=== PATIENT | female | born 1960 | race African-American/Black ===

== ENCOUNTER 2016-09-16 21:15 | Inpatient (IN) | payer OTHER, BC ==
[2016-09-16] MEDS ORDERED: morphine CARPU-JECT 4 MG/1 ML DISP.SYRIN IVPUSH ONE (21:25)
[2016-09-16] MEDS ORDERED: ONDANSETRON 4 MG/2 ML VIAL IVPB ONE (21:25)
[2016-09-16] MEDS ORDERED: FAMOTIDINE 20 MG/50 ML IVPB 50 ML IVPB ONE ×2 (21:25→21:33)
[2016-09-16] MEDS ORDERED: SODIUM CHLORIDE 1,000 ML IV STA (21:25)
[2016-09-16] MEDS ORDERED: ONDANSETRON 4 MG/2 ML VIAL ONE (21:33)
[2016-09-16] MEDS ORDERED: morphine CARPU-JECT 4 MG/1 ML DISP.SYRIN ONE (21:33)
--- NOTE | 2016-09-16 21:35 | PDOC ---
History of Present Illness - General History Source: Patient, Old Records Exam Limitations: No Limitations - History of Present Illness Initial Comments: 09/16/16 22:58 The patient is a 56 year old female, with a significant past medical history of asthma, HTN, hyperlipidemia, COPD, gastric reflux and bowel obstruction, who presents to the emergency department via EMS with intermittent radiating abdominal pain for a couple of days but significantly worsening this evening just prior to presentation, prompting her to visit an ED for evaluation. The patient localizes her abdominal pain to the epigastric region and states that it radiates to her back. She states that these symptoms feel similar to when she had a prior bowel obstruction. The patient denies fever, chills, nausea, vomiting or diarrhea. Allergies: Penicillins (hives), Sulfa (hives) Past Surgical History: Umbilical Hernia Repair, Uterine Polyp Removal (2013) Social History: Former smoker (quit 2011). Denies alcohol or drug use. PCP: Dr. Cristal Ludwig Building Certifier: Dr. Conti <Donna Denise - Last Filed: 09/16/16 23:07> - General History Source: Patient, Old Records Exam Limitations: No Limitations <Oli Verma - Last Filed: 09/17/16 02:19> <Sonja Crawford - Last Filed: 09/17/16 02:51> <Cora Fuentes - Last Filed: 09/17/16 21:31> - General Stated Complaint: ABD PAIN Time Seen by Provider: 09/16/16 21:24 Past History <Donna Denise - Last Filed: 09/16/16 23:07> - Past Medical History Anemia: No Asthma: Yes Cancer: No Cardiac Disorders: Yes CVA: No COPD: Yes CHF: No Dementia: No Diabetes: (BORDERLINE) GI Disorders: Yes (GERD) Disorders: No HTN: Yes Hypercholesterolemia: Yes Liver Disease: No Suicide Attempt (Hx): No Seizures: No Thyroid Disease: Yes (NODULES) - Surgical History Abdominal Surgery: Yes (POLYP REMOVED FROM UTERUS 09/06/13) Appendectomy: No Cardiac Surgery: No Cholecystectomy: No GI Surgery: Yes (umbilical hernia/wound vac) Lung Surgery: No Neurologic Surgery: No Orthopedic Surgery: Yes (BUNION REMOVAL RT FOOT 2013) - Immunization History Immunization Up to Date: Yes - Psycho/Social/Smoking Cessation Hx Anxiety: No Suicidal Ideation: No Smoking Status: Yes Smoking History: Never smoked Have you smoked in the past 12 months: No Number of Cigarettes Smoked Daily: 0 If you are a former smoker, when did you quit?: 05/17/2012 'Breaking Loose' booklet given: 10/28/13 Hx Alcohol Use: No Drug/Substance Use Hx: No Substance Use Type: None Hx Substance Use Treatment: No <Oli Verma - Last Filed: 09/17/16 02:19> <Sonja Crawford - Last Filed: 09/17/16 02:51> <Cora Fuetnes - Last Filed: 09/17/16 21:31> - Past Medical History Allergies/Adverse Reactions: Allergies Allergy/AdvReac Type Severity Reaction Status Date / Time Penicillins Allergy Hives Verified 09/16/16 22:23 Sulfa (Sulfonamide Allergy Hives Verified 09/16/16 22:23 Antibiotics) [Sulfa(Sulfonamide Antibiotics)] Home Medications: Ambulatory Orders Albuterol Sulfate Inhaler - [Ventolin HFA Inhaler -] 1 - 2 inh PO Q4H PRN MDD UNKNOWN 06/24/15 Atorvastatin Ca [Lipitor] 10 mg PO DAILY 06/24/15 Roflumilast [Daliresp] 500 mcg PO DAILY 06/24/15 Tiotropium [place] [Spiriva] 1 inh PO DAILY 06/24/15 Aspirin [ASA -] 81 mg PO DAILY 03/21/16 Butalb/Acetaminophen/Caffeine [Fioricet 50-300-40 mg Capsule] 1 each PO PRN PRN 03/21/16 Cholecalciferol (Vitamin D3) [Vitamin D -] 400 unit PO DAILY tablet 03/28/16 Cyanocobalamin [Vitamin B12 -] 1,000 mcg PO DAILY tablet 03/28/16 Fluticasone/Salmeterol [Advair 250-50 Diskus] 1 each IH BID 04/24/16 Acetaminophen [Tylenol .Regular Strength -] 650 mg PO Q4H PRN #0 tablet Pantoprazole Sodium [Protonix] 40 mg PO DAILY #30 05/02/16 Clonazepam [Klonopin] 0.5 mg PO ASDIR PRN 06/04/16 Diltiazem Cd [Cardizem Cd -] 180 mg PO DAILY #60 cap.cd.24h 06/08/16 Linezolid 600 mg PO BID #20 tablet 06/25/16 Prednisone [Deltasone -] 20 mg PO ONCE #1 tablet 07/28/16 Review of Systems - Review of Systems Able to Perform ROS?: Yes Comments:: 09/16/16 22:37 GENERAL/CONSTITUTIONAL: No fever or chills. No weakness. HEAD, EYES, EARS, NOSE AND THROAT: No change in vision. No ear pain or discharge. No sore throat. CARDIOVASCULAR: No chest pain or shortness of breath. RESPIRATORY: No cough, wheezing, or hemoptysis. GASTROINTESTINAL: +Abdominal pain. No nausea, vomiting, diarrhea or constipation. GENITOURINARY: No dysuria, frequency, or change in urination. MUSCULOSKELETAL: No joint or muscle swelling or pain. No neck or back pain. SKIN: No rash. NEUROLOGIC: No headache, vertigo, loss of consciousness, or change in strength/ sensation. ENDOCRINE: No increased thirst. No abnormal weight change. HEMATOLOGIC/LYMPHATIC: No anemia, easy bleeding, or history of blood clots. ALLERGIC/IMMUNOLOGIC: No hives or skin allergy. <Donna Denise - Last Filed: 09/16/16 23:07> *Physical Exam - Physical Exam Comments: 09/16/16 23:07 GENERAL: Awake, alert, and fully oriented, uncomfortable appearing. HEAD: No signs of trauma. EYES: PERRLA, EOMI, sclera anicteric, conjunctiva clear. ENT: Auricles normal inspection, hearing grossly normal, nares patent, oropharynx clear without exudates. Moist mucosa. NECK: Normal ROM, supple, no lymphadenopathy, JVD, or masses. LUNGS: Breath sounds equal, clear to auscultation bilaterally. No wheezes, and no crackles. HEART: Regular rate and rhythm, normal S1 and S2, no murmurs, rubs or gallops. ABDOMEN: Epigastric tenderness to palpation. Soft, normoactive bowel sounds. No guarding, no rebound. No masses. EXTREMITIES: Normal range of motion, no edema. No clubbing or cyanosis. No cords , erythema, or tenderness. NEUROLOGICAL: Cranial nerves II through XII intact. Normal speech, normal gait. <Donna Denise - Last Filed: 09/16/16 23:07> - Vital Signs Last Vital Signs Temp Pulse Resp BP Pulse Ox 97.7 F 82 18 134/72 98 09/16/16 22:13 09/16/16 22:13 09/16/16 22:13 09/16/16 22:13 09/16/16 22:13 <Sonja Crawford - Last Filed: 09/17/16 02:51> - Vital Signs Last Vital Signs Temp Pulse Resp BP Pulse Ox 97.7 F 82 18 134/72 98 09/16/16 22:13 09/16/16 22:13 09/16/16 22:13 09/16/16 22:13 09/16/16 22:13 <Cora Fuentes - Last Filed: 09/17/16 21:31> ED Treatment Course - LABORATORY CBC & Chemistry Diagram: 09/16/16 21:40 09/16/16 16:03 <Donna Denise - Last Filed: 09/16/16 23:07> - LABORATORY CBC & Chemistry Diagram: 09/16/16 21:40 09/17/16 00:27 - RADIOLOGY Radiology Studies Ordered: Category Date Time Status ABDOMEN & PELVIS CT WITH CONTR [CT] Stat CT Scan 09/16/16 21:25 Ordered CHEST X-RAY PORTABLE* [RAD] Stat Radiology 09/16/16 21:25 Ordered <Oli Verma - Last Filed: 09/17/16 02:19> - LABORATORY CBC & Chemistry Diagram: 09/16/16 21:40 09/17/16 00:27 - ADDITIONAL ORDERS Additional order review: Laboratory Results 09/17/16 09/16/16 09/16/16 00:27 16:03 16:03 INR 1.04 PTT (Actin FS) 25.2 L Sodium 144 Cancelled Potassium 4.7 D Cancelled Chloride 106 Cancelled Carbon Dioxide 29 Cancelled Anion Gap 9 Cancelled BUN 13 D Cancelled Creatinine 0.8 Cancelled Creat Clearance w eGFR > 60 Cancelled Random Glucose 93 Cancelled Calcium 8.4 L Cancelled Total Bilirubin 0.5 Cancelled AST 10 L Cancelled ALT 16 D Cancelled Alkaline Phosphatase 77 Cancelled Creatine Kinase Cancelled Troponin I Cancelled Total Protein 6.0 L Cancelled Albumin 3.2 L D Cancelled Lipase 67 L Cancelled 09/16/16 21:40 RBC 4.67 D MCV 89.5 MCHC 33.0 RDW 14.7 MPV 7.0 L Neutrophils % 58.5 Lymphocytes % 34.1 D Monocytes % 5.9 Eosinophils % 0.7 D Basophils % 0.8 - Medications Given in the ED: ED Medications Discontinued Medications Generic Name Dose Route Start Last Admin Trade Name Francheska PRN Reason Stop Dose Admin Hydromorphone HCl 1 mg 09/16/16 21:43 09/16/16 23:21 Dilaudid Injection - IVPB 09/16/16 21:44 1 mg ONCE ONE Administration Hydromorphone HCl 1 mg 09/17/16 00:46 09/17/16 01:06 Dilaudid Injection - IVPB 09/17/16 00:47 1 mg ONCE ONE Administration Famotidine/Sodium Chloride 50 mls @ 100 mls/hr 09/16/16 21:25 09/16/16 21:59 Pepcid 20 Mg Premixed Ivpb - IVPB 09/16/16 21:54 100 mls/hr ONCE ONE Administration Sodium Chloride 1,000 mls @ 1,000 mls/hr 09/16/16 21:25 09/16/16 21:59 Normal Saline - IV 09/16/16 22:24 1,000 mls/hr ASDIR STA Administration Morphine Sulfate 4 mg 09/16/16 21:25 09/16/16 21:45 Morphine Injection - IVPUSH 09/16/16 21:26 4 mg ONCE ONE Administration Ondansetron HCl 4 mg 09/16/16 21:25 09/16/16 21:59 Zofran Injection IVPB 09/16/16 21:26 4 mg ONCE ONE Administration <Sonja Crawford - Last Filed: 09/17/16 02:51> - LABORATORY CBC & Chemistry Diagram: 09/16/16 21:40 09/17/16 00:27 - ADDITIONAL ORDERS Additional order review: Laboratory Results 09/17/16 09/16/16 09/16/16 00:27 16:03 16:03 INR 1.04 PTT (Actin FS) 25.2 L Sodium 144 Cancelled Potassium 4.7 D Cancelled Chloride 106 Cancelled Carbon Dioxide 29 Cancelled Anion Gap 9 Cancelled BUN 13 D Cancelled Creatinine 0.8 Cancelled Creat Clearance w eGFR > 60 Cancelled Random Glucose 93 Cancelled Calcium 8.4 L Cancelled Total Bilirubin 0.5 Cancelled AST 10 L Cancelled ALT 16 D Cancelled Alkaline Phosphatase 77 Cancelled Creatine Kinase Cancelled Troponin I Cancelled Total Protein 6.0 L Cancelled Albumin 3.2 L D Cancelled Lipase 67 L Cancelled 09/16/16 21:40 RBC 4.67 D MCV 89.5 MCHC 33.0 RDW 14.7 MPV 7.0 L Neutrophils % 58.5 Lymphocytes % 34.1 D Monocytes % 5.9 Eosinophils % 0.7 D Basophils % 0.8 - Medications Given in the ED: ED Medications Discontinued Medications Generic Name Dose Route Start Last Admin Trade Name Freq PRN Reason Stop Dose Admin Hydromorphone HCl 1 mg 09/16/16 21:43 09/16/16 23:21 Dilaudid Injection - IVPB 09/16/16 21:44 1 mg ONCE ONE Administration Hydromorphone HCl 1 mg 09/17/16 00:46 09/17/16 01:06 Dilaudid Injection - IVPB 09/17/16 00:47 1 mg ONCE ONE Administration Hydromorphone HCl 1 mg 09/17/16 02:53 09/17/16 02:56 Dilaudid Injection - IVPUSH 09/17/16 02:54 1 mg ONCE ONE Administration Famotidine/Sodium Chloride 50 mls @ 100 mls/hr 09/16/16 21:25 09/16/16 21:59 Pepcid 20 Mg Premixed Ivpb - IVPB 09/16/16 21:54 100 mls/hr ONCE ONE Administration Sodium Chloride 1,000 mls @ 1,000 mls/hr 09/16/16 21:25 09/16/16 21:59 Normal Saline - IV 09/16/16 22:24 1,000 mls/hr ASDIR STA Administration Metoclopramide HCl 10 mg 09/17/16 02:53 09/17/16 02:56 Reglan Injection - IVPB 09/17/16 02:54 10 mg ONCE ONE Administration Morphine Sulfate 4 mg 09/16/16 21:25 09/16/16 21:45 Morphine Injection - IVPUSH 09/16/16 21:26 4 mg ONCE ONE Administration Ondansetron HCl 4 mg 09/16/16 21:25 09/16/16 21:59 Zofran Injection IVPB 09/16/16 21:26 4 mg ONCE ONE Administration <Cora Fuentes - Last Filed: 09/17/16 21:31> Medical Decision Making - Medical Decision Making 09/16/16 21:33 A portion of this note was documented by scribe services under my direction. I have reviewed the details of the note, within reason, and agree with the documentation with the following case summary and management plan written by me. Patient treated in the ED. Nursing notes are reviewed and incorporated into the medical decision-making. Vital signs reviewed. Peripheral IV access obtained by the nurse, laboratory studies are drawn and sent, reviewed and interpreted by myself. Vital Signs Temp Pulse Resp BP Pulse Ox 97.7 F 82 18 134/72 98 09/16/16 22:13 09/16/16 22:13 09/16/16 22:13 09/16/16 22:13 09/16/16 22:13 56 year old female with history of COPD, asthma, gastric reflux, hypertension, bowel obstruction presents to the emergency department for intermittent abdominal pain for several days. Reports one hour prior to arrival, she felt worsening diffuse abdominal pain, particularly worse in the epigastric radiating to the back. Denies nausea or vomiting. Denies diarrhea. Patient reports that this feels like her prior bowel obstruction. We'll need to rule out bowel obstruction. We'll also rule out pancreatitis and other abdominal pathology. Labs, CAT scan and reassess. 09/17/16 02:19 CBC, BMP 09/16/16 21:40 09/17/16 00:27 CMP Sodium 144 mmol/L (136-145) 09/17/16 00:27 Potassium 4.7 mmol/L (3.5-5.1) D 09/17/16 00:27 Chloride 106 mmol/L (98-107) 09/17/16 00:27 Carbon Dioxide 29 mmol/L (21-32) 09/17/16 00:27 Anion Gap 9 (8-16) 09/17/16 00:27 BUN 13 mg/dL (7-18) D 09/17/16 00:27 Creatinine 0.8 mg/dL (0.55-1.02) 09/17/16 00:27 Creat Clearance w eGFR > 60 (>60) 09/17/16 00:27 Random Glucose 93 mg/dL (74-106) 09/17/16 00:27 Calcium 8.4 mg/dL (8.5-10.1) L 09/17/16 00:27 Total Bilirubin 0.5 mg/dL (0.2-1.0) 09/17/16 00:27 AST 10 U/L (15-37) L 09/17/16 00:27 ALT 16 U/L (12-78) D 09/17/16 00:27 Alkaline Phosphatase 77 U/L (45-117) 09/17/16 00:27 Creatine Kinase Cancelled 09/16/16 16:03 Troponin I Cancelled 09/16/16 16:03 Total Protein 6.0 g/dl (6.4-8.2) L 09/17/16 00:27 Albumin 3.2 g/dl (3.4-5.0) L D 09/17/16 00:27 Lipase 67 U/L (73-393) L 09/17/16 00:[address] scan pending. Case signed out to Dr. Fuentes for further management and disposition. <Oli Verma - Last Filed: 09/17/16 02:19> - Medical Decision Making 09/17/16 02:51 First call placed to Dr. Ludwig at 02:50. Awaiting call back. <Sonja Crawford - Last Filed: 09/17/16 02:51> - Medical Decision Making 09/17/16 21:30 Pt comes with SBO; she has had this in the past. She will be admitted to her PMD Cristal Ludwig, who is aware. NG tube placed by me. <Cora Fuentes - Last Filed: 09/17/16 21:31> *DC/Admit/Observation/Transfer - Attestations Scribe Attestion: 09/16/16 21:36 Documentation prepared by Donna Denise, acting as medical educator for Oli Verma MD. <Donna Denise - Last Filed: 09/16/16 23:07> <Oli Verma - Last Filed: 09/17/16 02:19> - Attestations Scribe Attestion: 09/17/16 02:52 Documentation prepared by Sonja Crawford, acting as medical educator for Cora Fuentes MD. <Sonja Crawford - Last Filed: 09/17/16 02:51> - Discharge Dispostion Admit: Yes <Cora Fuentes - Last Filed: 09/17/16 21:31> Diagnosis at time of Disposition: Small bowel obstruction - Discharge Dispostion Condition at time of disposition: Fair - Referrals
[2016-09-16] MEDS ORDERED: HYDROmorphone HCL CARPU-JECT 1 MG/1 ML DISP.SYRIN IVPB ONE (21:43)
[2016-09-16 21:50] LABS: BASOPHIL 0.8 % (0-2.0); EOSINOPHIL 0.7 % (0-4.5); MCH 29.5 pg (25.7-33.7); MEAN CELL VOLUME 89.5 fl (80-96); NEUTROPHILS 58.5 % (42.8-82.8); PLATELET COUNT 370 K/MM3 (134-434); RDW 14.7 % (11.6-15.6); WHITE BLOOD COUNT 11.3 K/mm3 (4.0-10.0)
[2016-09-16 22:11] LABS: INR 1.04 (0.82-1.09); PROTHROMBIN TIME (PATIENT) 11.5 SEC (9.98-11.88)
[2016-09-16 22:14] LABS: ACTIVATED PTT 25.2 SECONDS (26.9-34.4)
[2016-09-16] MEDS ORDERED: HYDROmorphone HCL CARPU-JECT 1 MG/1 ML DISP.SYRIN ONE (22:54)
[2016-09-17] MEDS ORDERED: HYDROmorphone HCL CARPU-JECT 1 MG/1 ML DISP.SYRIN IVPB ONE (00:46)
[2016-09-17] MEDS ORDERED: HYDROmorphone HCL CARPU-JECT 1 MG/1 ML DISP.SYRIN ONE ×3 (01:00→10:19)
[2016-09-17 01:30] LABS: ALBUMIN 3.2 g/dl (3.4-5.0); ALK PHOS 77 U/L (45-117); ANION GAP 9 (8-16); BILIRUBIN,TOTAL 0.5 mg/dL (0.2-1.0); CALCIUM 8.4 mg/dL (8.5-10.1); CO2 29 mmol/L (21-32); CREATININE 0.8 mg/dL (0.55-1.02); GLUCOSE,RANDOM 93 mg/dL (74-106); SGOT/AST 10 U/L (15-37); SGPT/ALT 16 U/L (12-78)
[2016-09-17] MEDS ORDERED: METOCLOPRAMIDE HCL INJECTION 10 MG/2 ML VIAL ONE (02:50)
[2016-09-17] MEDS ORDERED: HYDROmorphone HCL CARPU-JECT 2 MG/1 ML DISP.SYRIN IVPUSH ONE (02:53)
[2016-09-17] MEDS ORDERED: METOCLOPRAMIDE HCL INJECTION 10 MG/2 ML VIAL IVPB ONE (02:53)
[2016-09-17] MEDS ORDERED: LIDOCAINE HCL 2% JELLY (5 ML/TUBE) ONE (03:15)
--- NOTE | 2016-09-17 09:26 | EKG ---
Test Reason : Blood Pressure : / mmHG Vent. Rate : 100 BPM Atrial Rate : 100 BPM P-R Int : 132 ms QRS Dur : 082 ms QT Int : 332 ms P-R-T Axes : 061 014 034 degrees QTc Int : 428 ms NORMAL SINUS RHYTHM POSSIBLE LEFT ATRIAL ENLARGEMENT LEFT VENTRICULAR HYPERTROPHY ABNORMAL ECG WHEN COMPARED WITH ECG OF 16-JUN-2016 02:46, NO SIGNIFICANT CHANGE WAS FOUND Confirmed by NAVARRO HARPER MD ([id number]) on 09/17/2016 9:26:22 AM Referred By: Confirmed By:NAVARRO HARPER MD
[2016-09-17] MEDS ORDERED: HYDROmorphone HCL CARPU-JECT 1 MG/1 ML DISP.SYRIN IVPUSH ONE (10:14)
[2016-09-17] MEDS ORDERED: ONDANSETRON 4 MG/2 ML VIAL IVPUSH PRN ×2 (10:27→10:32)
[2016-09-17] MEDS: D5-1/2NS+20 MEQ KCL - 1,000 ML IV SCH ×2 (10:35→22:10)
--- NOTE | 2016-09-17 10:51 | HP ---
Admitting History and Physical - Primary Care Physician PCP: Cristal Ludwig - Admission Chief Complaint: abd pain History of Present Illness: ER HISTORY-- - History of Present Illness Initial Comments: 09/16/16 22:58 The patient is a 56 year old female, with a significant past medical history of asthma, HTN, hyperlipidemia, COPD, gastric reflux and bowel obstruction, who presents to the emergency department via EMS with intermittent radiating abdominal pain for a couple of days but significantly worsening this evening just prior to presentation, prompting her to visit an ED for evaluation. The patient localizes her abdominal pain to the epigastric region and states that it radiates to her back. She states that these symptoms feel similar to when she had a prior bowel obstruction. The patient denies fever, chills, nausea, vomiting or diarrhea. Allergies: Penicillins (hives), Sulfa (hives) Past Surgical History: Umbilical Hernia Repair, Uterine Polyp Removal (2013) Social History: Former smoker (quit 2011). Denies alcohol or drug use. PCP: Dr. Cristal Ludwig Quality Assurance Supervisor: Dr. Conti Pt examined by me in the ER Has NG tube on suction C/O abd pain for last one week- intermittent but day before coming to the ER she experienced severe abdominal pain No constipation , diarrhea, vomiting or nausea History Source: Patient Limitations to Obtaining History: No Limitations - Past Medical History Cardiovascular: Yes: HTN Pulmonary: Yes: COPD ...LMP: 08/04/13 Heme/Onc: Yes: B12 Deficiency Psych: Yes: Anxiety - Past Surgical History Past Surgical History: Yes: Hernia Repair - Smoking History Smoking history: Never smoked Have you smoked in the past 12 months: No Aproximately how many cigarettes per day: 0 If you are a former smoker, when did you quit?: 05/17/2012 - Alcohol/Substance Use Hx Alcohol Use: No Home Medications - Allergies Allergies/Adverse Reactions: Allergies Allergy/AdvReac Type Severity Reaction Status Date / Time Penicillins Allergy Hives Verified 09/16/16 22:23 Sulfa (Sulfonamide Allergy Hives Verified 09/16/16 22:23 Antibiotics) [Sulfa(Sulfonamide Antibiotics)] - Home Medications Home Medications: Ambulatory Orders Albuterol Sulfate Inhaler - [Ventolin HFA Inhaler -] 1 - 2 inh PO Q4H PRN MDD UNKNOWN 06/24/15 Atorvastatin Ca [Lipitor] 10 mg PO DAILY 06/24/15 Roflumilast [Daliresp] 500 mcg PO DAILY 06/24/15 Tiotropium [place] [Spiriva] 1 inh PO DAILY 06/24/15 Aspirin [ASA -] 81 mg PO DAILY 03/21/16 Butalb/Acetaminophen/Caffeine [Fioricet 50-300-40 mg Capsule] 1 each PO PRN PRN 03/21/16 Cholecalciferol (Vitamin D3) [Vitamin D -] 400 unit PO DAILY tablet 03/28/16 Cyanocobalamin [Vitamin B12 -] 1,000 mcg PO DAILY tablet 03/28/16 Fluticasone/Salmeterol [Advair 250-50 Diskus] 1 each IH BID 04/24/16 Acetaminophen [Tylenol .Regular Strength -] 650 mg PO Q4H PRN #0 tablet Pantoprazole Sodium [Protonix] 40 mg PO DAILY #30 05/02/16 Clonazepam [Klonopin] 0.5 mg PO ASDIR PRN 06/04/16 Diltiazem Cd [Cardizem Cd -] 180 mg PO DAILY #60 cap.cd.24h 06/08/16 Linezolid 600 mg PO BID #20 tablet 06/25/16 Prednisone [Deltasone -] 20 mg PO ONCE #1 tablet 07/28/16 Family Disease History - Family Disease History Family Disease History: CA: Father (Lung CA), Other: Mother (HTN) Review of Systems - Review of Systems Constitutional: denies: Fever, Loss of Appetite Gastrointestinal: reports: Abdominal Pain. denies: Constipation, Diarrhea, Vomiting Physical Examination Vital Signs: Vital Signs Temperature 97.7 F 09/17/16 04:06 Pulse Rate 107 H 09/17/16 07:35 Respiratory Rate 20 09/17/16 07:35 Blood Pressure 155/90 09/17/16 07:35 O2 Sat by Pulse Oximetry (%) 96 09/17/16 07:35 Constitutional: Yes: No Distress, Calm Cardiovascular: Yes: Regular Rate and Rhythm Respiratory: Yes: CTA Bilaterally Gastrointestinal: Yes: Soft, Hypoactive Bowel Sounds, Tenderness. No: Normal Bowel Sounds, Distention Edema: No Psychiatric: Yes: Alert, Oriented Labs: Laboratory Tests 09/16/16 09/16/16 09/17/16 16:03 21:40 00:27 WBC 11.3 H Hgb 13.8 D Hct 41.8 D Plt Count 370 D INR 1.04 PTT (Actin FS) 25.2 L Sodium 144 Potassium 4.7 D Chloride 106 Carbon Dioxide 29 BUN 13 D Creatinine 0.8 Random Glucose 93 Calcium 8.4 L Total Bilirubin 0.5 AST 10 L ALT 16 D Alkaline Phosphatase 77 Albumin 3.2 L D Lipase 67 L Imaging - Results Chest X-ray: Image Reviewed (no infiltrate) Cat Scan: Report Reviewed EKG: Image Reviewed (NSR) Problem List - Problems (1) Asthma with COPD Code(s): J44.9 - CHRONIC OBSTRUCTIVE PULMONARY DISEASE, UNSPECIFIED J45.909 - UNSPECIFIED ASTHMA, UNCOMPLICATED (2) Intestinal obstruction due to adhesions Code(s): K56.5 - INTESTINAL ADHESIONS W OBST (POSTPROCEDURAL) (POSTINFECTION) (3) Small bowel obstruction Code(s): K56.69 - OTHER INTESTINAL OBSTRUCTION Assessment/Plan PLAN --- Keep NPO -- IV fluids -- pain control -- NG tube on suction -- Surgery and GI eval -- DVT prophylaxis -- FUA in AM
[2016-09-17] MEDS ORDERED: ALBUTEROL SO4 6.7 GM HFA INHALER IH PRN (13:15)
--- NOTE | 2016-09-17 14:03 | CONSULT ---
Consult Consult Specialty:: Surgery Referred by:: Cristal Ludwig Reason for Consultation:: Intestinal obstruction. - History of Present Illness Chief Complaint: Abdominal pain, in mid and upper abdomen,since yesterday evening. History of Present Illness: Patient started getting crampy abdominal pain since last evening, associated with vomiting, for which she came to the ER. She is admitted for intestinal obstruction. - History Source History Provided By: Patient - Past Medical History Cardio/Vascular: Yes: HTN Pulmonary: Yes: COPD ...LMP: 08/04/13 Psych: Yes: Anxiety - Past Surgical History Past Surgical History: Yes: Hernia Repair - Alcohol/Substance Use Hx Alcohol Use: No - Smoking History Smoking history: Never smoked Have you smoked in the past 12 months: No Aproximately how many cigarettes per day: 0 If you are a former smoker, when did you quit?: 05/17/2012 Home Medications - Allergies Allergies/Adverse Reactions: Allergies Allergy/AdvReac Type Severity Reaction Status Date / Time Penicillins Allergy Hives Verified 09/16/16 22:23 Sulfa (Sulfonamide Allergy Hives Verified 09/16/16 22:23 Antibiotics) [Sulfa(Sulfonamide Antibiotics)] - Home Medications Home Medications: Ambulatory Orders Albuterol Sulfate Inhaler - [Ventolin HFA Inhaler -] 1 - 2 inh PO Q4H PRN MDD UNKNOWN 06/24/15 Atorvastatin Ca [Lipitor] 10 mg PO DAILY 06/24/15 Roflumilast [Daliresp] 500 mcg PO DAILY 06/24/15 Tiotropium [place] [Spiriva] 1 inh PO DAILY 06/24/15 Aspirin [ASA -] 81 mg PO DAILY 03/21/16 Butalb/Acetaminophen/Caffeine [Fioricet 50-300-40 mg Capsule] 1 each PO PRN PRN 03/21/16 Cholecalciferol (Vitamin D3) [Vitamin D -] 400 unit PO DAILY tablet 03/28/16 Cyanocobalamin [Vitamin B12 -] 1,000 mcg PO DAILY tablet 03/28/16 Fluticasone/Salmeterol [Advair 250-50 Diskus] 1 each IH BID 04/24/16 Acetaminophen [Tylenol .Regular Strength -] 650 mg PO Q4H PRN #0 tablet Pantoprazole Sodium [Protonix] 40 mg PO DAILY #30 05/02/16 Clonazepam [Klonopin] 0.5 mg PO ASDIR PRN 06/04/16 Diltiazem Cd [Cardizem Cd -] 180 mg PO DAILY #60 cap.cd.24h 06/08/16 Linezolid 600 mg PO BID #20 tablet 06/25/16 Prednisone [Deltasone -] 20 mg PO ONCE #1 tablet 07/28/16 Family Disease History - Family Disease History Family Disease History: CA: Father (Lung CA), Other: Mother (HTN) Physical Exam Vital Signs: Vital Signs Temperature 98.2 F 09/17/16 13:00 Pulse Rate 93 H 09/17/16 13:00 Respiratory Rate 18 09/17/16 13:00 Blood Pressure 142/85 09/17/16 13:00 O2 Sat by Pulse Oximetry (%) 96 09/17/16 13:00 Gastrointestinal: Yes: Other (Transverse incision at the umbilicus. Abdomen is soft , not distended, not tender.) Imaging - Results Cat Scan: Report Reviewed, Image Reviewed Problem List - Problems (1) Intestinal obstruction due to adhesions Code(s): K56.5 - INTESTINAL ADHESIONS W OBST (POSTPROCEDURAL) (POSTINFECTION) (2) Asthma with COPD Code(s): J44.9 - CHRONIC OBSTRUCTIVE PULMONARY DISEASE, UNSPECIFIED J45.909 - UNSPECIFIED ASTHMA, UNCOMPLICATED (3) Abdominal pain Code(s): R10.9 - UNSPECIFIED ABDOMINAL PAIN Qualifiers: Abdominal location: epigastric Qualified Code(s): R10.13 - Epigastric pain (4) HTN (hypertension) Code(s): I10 - ESSENTIAL (PRIMARY) HYPERTENSION Assessment/Plan NG tube has been placed and connected to suction . IV hydration. Follow up abdominal X-ray. Patient is explained of her condition , and management and complications.
--- NOTE | 2016-09-17 14:53 | CON.GI ---
Consult Consult Specialty:: GASTROENTEROLOGY - History of Present Illness Chief Complaint: ABDOMINAL PAIN History of Present Illness: 56 YEAR OLD FEMALE WITH HISTORY OF ABDOMINAL HERNIA REPAIR WITH [facility] (WITH PIOST OP COMPLICATIONS0 ADMITTED AGAIN WITH SMALL BOWEL OBSTRUCTION. cT SCAN SHOWED DILATED SMALL BOWEL AND EPIGASRIXC HERNIA WITH SMALL BOWEL IN HERNIA. PATIENT SEEN BY SURGERY AND NGT PASSED WITH IMPROVEMENT OF SYMPTOMS. - History Source History Provided By: Patient Limitations to Obtaining History: No Limitations - Past Medical History Cardio/Vascular: Yes: HTN Pulmonary: Yes: COPD Gastrointestinal: Yes: Other (HERNIA REPAIR WITH COMPLICATIONS AND POST OP SBO) Hepatobiliary: No: Cirrhosis, Cholelithiasis, Cholecystitis, Choledocholithiasis , Hepatitis A, Hepatitis B, Hepatitis C, Other Renal/: No: Renal Failure, Renal Inusuff, BPH, Cancer, Hematuria, Hemodialysis , Neurogenic Bladder, Renal Calculi, UTI, Other ...LMP: 08/04/13 Heme/Onc: No: Anemia, B12 Deficiency, Bleeding Disorder, Cancer, Current Chemotherapy, Current Radiation Therapy, Hemochromatosis, Hypercoaguable State, Myeloproliferative Synd, Sickle Cell Disease, Sickle Cell Trait, Thrombocytopenia, Other Infectious Disease: No: AIDS, C-Diff, Herpes Zoster, HIV, MRSA, STD's, Tuberculosis, VREF, Other Psych: Yes: Anxiety Rheumatology: No: Fibromyalgia, Gout, Lupus, Rheumatoid Arthritis, Sarcoidosis, Vasculitis, Other ENT: No: Allergic Rhinitis, Sinusitis, Other Endocrine: No: Srinivas's Disease, Oralia's Disease, Diabetes Insipidus, Diabetes Mellitus, Hyperparathyroidism, Hyperthyroidism, Hypothyroidism, Osteopenia, SIADH, Other - Past Surgical History Past Surgical History: Yes: Hernia Repair - Alcohol/Substance Use Hx Alcohol Use: No - Smoking History Smoking history: Never smoked Have you smoked in the past 12 months: No Aproximately how many cigarettes per day: 0 If you are a former smoker, when did you quit?: 05/17/2012 Home Medications - Allergies Allergies/Adverse Reactions: Allergies Allergy/AdvReac Type Severity Reaction Status Date / Time Penicillins Allergy Hives Verified 09/16/16 22:23 Sulfa (Sulfonamide Allergy Hives Verified 09/16/16 22:23 Antibiotics) [Sulfa(Sulfonamide Antibiotics)] - Home Medications Home Medications: Ambulatory Orders Albuterol Sulfate Inhaler - [Ventolin HFA Inhaler -] 1 - 2 inh PO Q4H PRN MDD UNKNOWN 06/24/15 Atorvastatin Ca [Lipitor] 10 mg PO DAILY 06/24/15 Roflumilast [Daliresp] 500 mcg PO DAILY 06/24/15 Tiotropium [place] [Spiriva] 1 inh PO DAILY 06/24/15 Aspirin [ASA -] 81 mg PO DAILY 03/21/16 Butalb/Acetaminophen/Caffeine [Fioricet 50-300-40 mg Capsule] 1 each PO PRN PRN 03/21/16 Cholecalciferol (Vitamin D3) [Vitamin D -] 400 unit PO DAILY tablet 03/28/16 Cyanocobalamin [Vitamin B12 -] 1,000 mcg PO DAILY tablet 03/28/16 Fluticasone/Salmeterol [Advair 250-50 Diskus] 1 each IH BID 04/24/16 Acetaminophen [Tylenol .Regular Strength -] 650 mg PO Q4H PRN #0 tablet Pantoprazole Sodium [Protonix] 40 mg PO DAILY #30 05/02/16 Clonazepam [Klonopin] 0.5 mg PO ASDIR PRN 06/04/16 Diltiazem Cd [Cardizem Cd -] 180 mg PO DAILY #60 cap.cd.24h 06/08/16 Linezolid 600 mg PO BID #20 tablet 06/25/16 Prednisone [Deltasone -] 20 mg PO ONCE #1 tablet 07/28/16 Family Disease History - Family Disease History Family Disease History: CA: Father (Lung CA), Other: Mother (HTN) Review of Systems - Review of Systems Constitutional: reports: Loss of Appetite HENT: reports: No Symptoms Neck: reports: No Symptoms Cardiovascular: reports: No Symptoms Respiratory: reports: No Symptoms Gastrointestinal: reports: Abdominal Pain Musculoskeletal: reports: No Symptoms Integumentary: reports: No Symptoms Neurological: reports: No Symptoms Endocrine: reports: No Symptoms Hematology/Lymphatic: reports: No Symptoms Psychiatric: reports: No Symptoms Physical Exam-GI Vital Signs: Vital Signs Temperature 98.2 F 09/17/16 13:00 Pulse Rate 93 H 09/17/16 13:00 Respiratory Rate 18 09/17/16 13:00 Blood Pressure 142/85 09/17/16 13:00 O2 Sat by Pulse Oximetry (%) 96 09/17/16 13:00 Constitutional: Yes: Obese HENT: Yes: WNL Cardiovascular: Yes: WNL Respiratory: Yes: WNL Gastrointestinal Inspection: Yes: Distention ...Auscultate: Yes: Hypoactive Bowel Sounds ...Palpate: Yes: Other (MILD DIFFUSE UPPER ABDOMINAL PAIN) Extremities: Yes: WNL Labs: INR, PTT INR 1.04 (0.82-1.09) 09/16/16 16:03 Laboratory Tests 09/16/16 09/16/16 09/17/16 16:03 21:40 00:27 WBC 11.3 H RBC 4.67 D Hgb 13.8 D Hct 41.8 D MCV 89.5 MCHC 33.0 RDW 14.7 Plt Count 370 D MPV 7.0 L Neutrophils % 58.5 Lymphocytes % 34.1 D Monocytes % 5.9 Eosinophils % 0.7 D Basophils % 0.8 INR 1.04 PTT (Actin FS) 25.2 L Sodium 144 Potassium 4.7 D Chloride 106 Carbon Dioxide 29 Anion Gap 9 Creatinine 0.8 Creat Clearance w eGFR > 60 Random Glucose 93 Calcium 8.4 L Total Bilirubin 0.5 AST 10 L ALT 16 D Alkaline Phosphatase 77 Total Protein 6.0 L Albumin 3.2 L D Lipase 67 L Imaging - Results Cat Scan: Image Reviewed Problem List - Problems (1) Small bowel obstruction Assessment/Plan: NPO NGT CORRECT ANY ELECTROLYTE ABNORMALITY AMBULATE SURGICAL FOLLOW UP SERIAL XRAYS Code(s): K56.69 - OTHER INTESTINAL OBSTRUCTION (2) Intestinal obstruction due to adhesions Code(s): K56.5 - INTESTINAL ADHESIONS W OBST (POSTPROCEDURAL) (POSTINFECTION) (3) Abdominal pain Code(s): R10.9 - UNSPECIFIED ABDOMINAL PAIN Qualifiers: Abdominal location: epigastric Qualified Code(s): R10.13 - Epigastric pain
[2016-09-17 15:42] VITALS: BMI 30.6
[2016-09-17] MEDS ORDERED: PT OWN MED DRAWER 7, Y5N ONE ×2 (17:11→20:52)
[2016-09-17] MEDS: HYDROmorphone HCL CARPU-JECT 1 MG/1 ML DISP.SYRIN IVPUSH PRN ×2 (18:04→22:10)
[2016-09-17] MEDS: BUDESONIDE/FORMETEROL FUMARATE 80/4.5 mcg INHALER IH SCH (21:17)
[2016-09-18] MEDS: HYDROmorphone HCL CARPU-JECT 1 MG/1 ML DISP.SYRIN IVPUSH PRN ×2 (02:57→19:37)
[2016-09-18] MEDS ORDERED: ONDANSETRON 4 MG/2 ML VIAL ONE (06:26)
[2016-09-18 07:58] LABS: BASOPHIL 0.3 % (0-2.0); EOSINOPHIL 2.2 % (0-4.5); MCH 30.2 pg (25.7-33.7); MCHC 33.6 g/dl (32.0-36.0); MEAN PLT VOLUME 6.9 fl (7.5-11.1); NEUTROPHILS 59.9 % (42.8-82.8); PLATELET COUNT 258 K/MM3 (134-434); RDW 14.4 % (11.6-15.6); WHITE BLOOD COUNT 9.9 K/mm3 (4.0-10.0)
[2016-09-18 08:33] LABS: CALCIUM 8.2 mg/dL (8.5-10.1); CREATININE 0.8 mg/dL (0.55-1.02)
[2016-09-18] MEDS: BUDESONIDE/FORMETEROL FUMARATE 80/4.5 mcg INHALER IH SCH ×3 (09:15→21:01)
[2016-09-18] MEDS ORDERED: ACETAMINOPHEN 325 MG TABLET (FP) ONE (09:31)
[2016-09-18] MEDS: ENOXAPARIN NA (PORCINE) 40 MG/0.4 ML DISP.SYRIN SQ SCH (09:34)
[2016-09-18] MEDS: D5-1/2NS+20 MEQ KCL - 1,000 ML IV SCH ×2 (09:35→11:42)
[2016-09-18] MEDS: TIOTROPIUM BROMIDE 18 MCG/INH (DEVICE W/ 5 CAPSULES) IH SCH (09:36)
[2016-09-18] MEDS: ARTIFICIAL TEARS (POLYVINYL ALCOHOL 1.4%) OPTH DROPS OU PRN (11:25)
--- NOTE | 2016-09-18 11:26 | PN ---
Progress Note, Physician Chief Complaint: still has drainage from NG tube has mild abd pain no nausea - Current Medication List Current Medications: Active Medications Albuterol Sulfate (Ventolin Hfa Inhaler -) 2 puff IH Q4H PRN PRN Reason: ASTHMA Artificial Tears (Artificial Tears) 1 drop OU Q8H PRN PRN Reason: DRY EYES Last Admin: 09/18/16 11:25 Dose: 1 drop Budesonide/Formoterol Fumarate (Symbicort 80/4.5mcg -) 2 puff IH BID [facility] Last Admin: 09/18/16 09:35 Dose: 2 puff Diltiazem HCl (Cardizem Cd -) 180 mg PO DAILY [facility] Last Admin: 09/18/16 09:35 Dose: 180 mg Enoxaparin Sodium (Lovenox -) 40 mg SQ DAILY [facility] Last Admin: 09/18/16 09:34 Dose: 40 mg Hydromorphone HCl (Dilaudid Injection -) 1 mg IVPUSH Q4H PRN PRN Reason: PAIN Last Admin: 09/18/16 02:57 Dose: 1 mg Potassium Chloride/Dextrose/Sod Cl (D5-1/2ns+20 Meq Kcl -) 1,000 mls @ 100 mls/ hr IV ASDIR [facility] Last Admin: 09/18/16 09:35 Dose: 100 mls/hr Tiotropium [place] (Spiriva -) 1 puff IH DAILY [facility] Last Admin: 09/18/16 09:36 Dose: 1 puff - Objective Vital Signs: Vital Signs Temperature 98.5 F 09/18/16 09:49 Pulse Rate 103 H 09/18/16 09:49 Respiratory Rate 16 09/18/16 09:49 Blood Pressure 139/84 09/18/16 09:49 O2 Sat by Pulse Oximetry (%) 98 09/18/16 09:00 Constitutional: Yes: No Distress Cardiovascular: Yes: Regular Rate and Rhythm Respiratory: Yes: Diminished Gastrointestinal: Yes: Soft, Hypoactive Bowel Sounds, Tenderness. No: Distention Edema: No Labs: CBC, BMP 09/18/16 07:15 09/18/16 07:15 INR, PTT INR 1.04 (0.82-1.09) 09/16/16 16:03 Problem List - Problems (1) Asthma with COPD Code(s): J44.9 - CHRONIC OBSTRUCTIVE PULMONARY DISEASE, UNSPECIFIED J45.909 - UNSPECIFIED ASTHMA, UNCOMPLICATED (2) Intestinal obstruction due to adhesions Code(s): K56.5 - INTESTINAL ADHESIONS W OBST (POSTPROCEDURAL) (POSTINFECTION) (3) Small bowel obstruction Code(s): K56.69 - OTHER INTESTINAL OBSTRUCTION Assessment/Plan PLAN iv fluids pain control Zofran as needed spoke with Surgeon-- FUA noted-- will need repeat CT abd in AM Keep NPO DVT prophylaxis-- Lovenox sc
[2016-09-18] MEDS ORDERED: ONDANSETRON 4 MG/2 ML VIAL IVPB PRN (11:47)
--- NOTE | 2016-09-18 11:48 | PN ---
Progress Note, Physician - Current Medication List Current Medications: Active Medications Albuterol Sulfate (Ventolin Hfa Inhaler -) 2 puff IH Q4H PRN PRN Reason: ASTHMA Artificial Tears (Artificial Tears) 1 drop OU Q8H PRN PRN Reason: DRY EYES Last Admin: 09/18/16 11:25 Dose: 1 drop Budesonide/Formoterol Fumarate (Symbicort 80/4.5mcg -) 2 puff IH BID [facility] Last Admin: 09/18/16 09:35 Dose: 2 puff Diltiazem HCl (Cardizem Cd -) 180 mg PO DAILY [facility] Last Admin: 09/18/16 09:35 Dose: 180 mg Enoxaparin Sodium (Lovenox -) 40 mg SQ DAILY [facility] Last Admin: 09/18/16 09:34 Dose: 40 mg Hydromorphone HCl (Dilaudid Injection -) 1 mg IVPUSH Q4H PRN PRN Reason: PAIN Last Admin: 09/18/16 02:57 Dose: 1 mg Potassium Chloride/Dextrose/Sod Cl (D5-1/2ns+20 Meq Kcl -) 1,000 mls @ 100 mls/ hr IV ASDIR [facility] Last Admin: 09/18/16 09:35 Dose: 100 mls/hr Tiotropium [place] (Spiriva -) 1 puff IH DAILY [facility] Last Admin: 09/18/16 09:36 Dose: 1 puff - Objective Vital Signs: Vital Signs Temperature 98.5 F 09/18/16 09:49 Pulse Rate 103 H 09/18/16 09:49 Respiratory Rate 16 09/18/16 09:49 Blood Pressure 139/84 09/18/16 09:49 O2 Sat by Pulse Oximetry (%) 98 09/18/16 09:00 Labs: CBC, BMP 09/18/16 07:15 09/18/16 07:15 INR, PTT INR 1.04 (0.82-1.09) 09/16/16 16:03 Problem List - Problems (1) Intestinal obstruction due to adhesions Code(s): K56.5 - INTESTINAL ADHESIONS W OBST (POSTPROCEDURAL) (POSTINFECTION) (2) Asthma with COPD Code(s): J44.9 - CHRONIC OBSTRUCTIVE PULMONARY DISEASE, UNSPECIFIED J45.909 - UNSPECIFIED ASTHMA, UNCOMPLICATED (3) Abdominal pain Code(s): R10.9 - UNSPECIFIED ABDOMINAL PAIN Qualifiers: Abdominal location: epigastric Qualified Code(s): R10.13 - Epigastric pain (4) HTN (hypertension) Code(s): I10 - ESSENTIAL (PRIMARY) HYPERTENSION Assessment/Plan Surgery; Patient is comfortable, passing flatus. Abdomen is soft, not distended, not tender. X-Ray shows some air fluid levels in the left upper quadrant, suggestive of partial small bowel obstruction. Will do CT scan of abdomen , tomorrow. Patient is improving, will keep NPO for another day.
--- NOTE | 2016-09-18 14:56 | PN ---
GI Progress Note Subjective: GASTROENTEROLOGY FEELS BETTER, NGT STILL DRAINING MUDDY FLUID SEEN BY SURGERY TODAY FOR CT SCAN - Objective Vital Signs: Vital Signs Temperature 98.6 F 09/18/16 14:41 Pulse Rate 101 H 09/18/16 14:41 Respiratory Rate 16 09/18/16 14:41 Blood Pressure 140/80 09/18/16 14:41 O2 Sat by Pulse Oximetry (%) 98 09/18/16 09:00 Constitutional: No Distress HENT: Yes: WNL Neck: Yes: WNL Cardiovascular: Yes: WNL Respiratory: Yes: WNL Gastrointestinal Inspection: Yes: Distention ...Auscultate: Yes: Hypoactive Bowel Sounds ...Palpate: Yes: Soft, Tenderness, Epigastium Extremities: Yes: WNL Labs: CBC, BMP 09/18/16 07:15 09/18/16 07:15 INR, PTT INR 1.04 (0.82-1.09) 09/16/16 16:03 Laboratory Tests 09/16/16 09/17/16 09/18/16 16:03 00:27 07:15 WBC 9.9 RBC 3.90 Hgb 11.8 D Hct 35.1 D MCV 90.0 MCHC 33.6 RDW 14.4 Plt Count 258 D MPV 6.9 L Neutrophils % 59.9 Lymphocytes % 31.4 Monocytes % 6.2 Eosinophils % 2.2 D Basophils % 0.3 INR 1.04 Sodium Potassium Chloride Carbon Dioxide Anion Gap BUN Creatinine Random Glucose Calcium Total Protein 6.0 L Albumin 3.2 L D Lipase 67 L 09/18/16 07:15 WBC RBC Hgb Hct MCV MCHC RDW Plt Count MPV Neutrophils % Lymphocytes % Monocytes % Eosinophils % Basophils % INR Sodium 141 Potassium 3.6 D Chloride 103 Carbon Dioxide 29 Anion Gap 9 BUN 13 Creatinine 0.8 Random Glucose 118 H D Calcium 8.2 L Total Protein Albumin Lipase Problem List - Problems (1) Small bowel obstruction Assessment/Plan: NPO NGT AND MONTIOR OUTPUT CORRECT ANY ELECTROLYTE ABNORMALITY AMBULATE SURGICAL FOLLOW UP SMALL AIR FLUID LEVELS IN THE LUQ ON XRAY FOR CT SCAN TOMORROW Code(s): K56.69 - OTHER INTESTINAL OBSTRUCTION (2) Intestinal obstruction due to adhesions Code(s): K56.5 - INTESTINAL ADHESIONS W OBST (POSTPROCEDURAL) (POSTINFECTION) (3) Abdominal pain Code(s): R10.9 - UNSPECIFIED ABDOMINAL PAIN Qualifiers: Abdominal location: epigastric Qualified Code(s): R10.13 - Epigastric pain
[2016-09-18] MEDS: ACETAMINOPHEN 1000 MG/100 ML VIAL (NON FORMULARY) IVPB PRN ×2 (15:25→22:53)
[2016-09-19] MEDS: HYDROmorphone HCL CARPU-JECT 1 MG/1 ML DISP.SYRIN IVPUSH PRN ×4 (01:50→19:40)
[2016-09-19] MEDS: D5-1/2NS+20 MEQ KCL - 1,000 ML IV SCH ×2 (01:52→12:29)
--- NOTE | 2016-09-19 08:14 | PN ---
Progress Note (short form) - Note Progress Note: SUBJECTIVE: Patient seen and examined. Chart reviewed. Mild abdominal discomfort. Afebrile. OBJECTIVE: Vital Signs 09/19/16 06:34 Temperature 98.4 F Pulse Rate 95 H Respiratory 18 Rate Blood Pressure 119/91 Intake & Output 09/18/16 09/19/16 09/19/16 23:59 07:59 15:59 Intake Total 1100 100 Output Total 1500 600 Balance -400 -500 Intake: IV 1000 D5-1/2Ns+20 Meq KCl - 1, 1000 000 ml @ 80 mls/hr IV ASDIR [facility] Rx#:[id number] IVPB 100 100 Output: Gastric Drainage 500 600 Urine 1000 Void 1000 Other: Voiding Method Toilet # Unmeasured Voids Void 1 Active Medications Albuterol Sulfate (Ventolin Hfa Inhaler -) 2 puff IH Q4H PRN PRN Reason: ASTHMA Artificial Tears (Artificial Tears) 1 drop OU Q8H PRN PRN Reason: DRY EYES Last Admin: 09/18/16 11:25 Dose: 1 drop Budesonide/Formoterol Fumarate (Symbicort 80/4.5mcg -) 2 puff IH BID [facility] Last Admin: 09/18/16 21:01 Dose: Not Given Diltiazem HCl (Cardizem Cd -) 180 mg PO DAILY [facility] Last Admin: 09/18/16 09:35 Dose: 180 mg Enoxaparin Sodium (Lovenox -) 40 mg SQ DAILY [facility] Last Admin: 09/18/16 09:34 Dose: 40 mg Hydromorphone HCl (Dilaudid Injection -) 1 mg IVPUSH Q4H PRN PRN Reason: PAIN Last Admin: 09/19/16 08:29 Dose: 1 mg Potassium Chloride/Dextrose/Sod Cl (D5-1/2ns+20 Meq Kcl -) 1,000 mls @ 80 mls/ hr IV [facility]IR [facility] Last Admin: 09/19/16 01:52 Dose: 80 mls/hr Ondansetron HCl (Zofran Injection) 8 mg IVPB Q6H PRN PRN Reason: NAUSEA Tiotropium [place] (Spiriva -) 1 puff IH DAILY [facility] Last Admin: 09/18/16 09:36 Dose: 1 puff CBC, BMP 09/18/16 07:15 09/19/16 07:00 Laboratory Results - last 24 hr 09/19/16 07:00 Sodium 140 Potassium 3.5 Chloride 100 Carbon Dioxide 29 Anion Gap 11 BUN 9 D Creatinine 0.7 Random Glucose 95 Calcium 9.2 Magnesium 2.0 PHYSICAL EXAMINATION: Constitutional: Yes: No Distress, Calm Cardiovascular: Yes: Regular Rate and Rhythm Respiratory: Yes: CTA Bilaterally Gastrointestinal: Yes: Soft. Mild tenderness at the cesilia-umbilical area. Edema: No Psychiatric: Yes: Alert, Oriented. NGT in place. ASSESSMENT & PLAN: - NPO. - IV fluids. - Pain control. - NG tube on suction. - Follow up CT scan today. - Previous CT scan reviewed. - Continue present care. - Will follow. Problem List - Problems (1) Asthma with COPD Code(s): J44.9 - CHRONIC OBSTRUCTIVE PULMONARY DISEASE, UNSPECIFIED J45.909 - UNSPECIFIED ASTHMA, UNCOMPLICATED (2) Intestinal obstruction due to adhesions Code(s): K56.5 - INTESTINAL ADHESIONS W OBST (POSTPROCEDURAL) (POSTINFECTION) (3) Small bowel obstruction Code(s): K56.69 - OTHER INTESTINAL OBSTRUCTION Documentation prepared by Kami Adame, acting as a certified ophthalmic medical technician for Carina Dixon MD.
[2016-09-19 08:39] LABS: CALCIUM 9.2 mg/dL (8.5-10.1); CREATININE 0.7 mg/dL (0.55-1.02)
[2016-09-19] MEDS: ENOXAPARIN NA (PORCINE) 40 MG/0.4 ML DISP.SYRIN SQ SCH (11:29)
[2016-09-19] MEDS: BUDESONIDE/FORMETEROL FUMARATE 80/4.5 mcg INHALER IH SCH ×2 (11:30→21:35)
[2016-09-19] MEDS: TIOTROPIUM BROMIDE 18 MCG/INH (DEVICE W/ 5 CAPSULES) IH SCH (11:30)
--- NOTE | 2016-09-19 15:15 | PN ---
Progress Note, Physician - Current Medication List Current Medications: Active Medications Albuterol Sulfate (Ventolin Hfa Inhaler -) 2 puff IH Q4H PRN PRN Reason: ASTHMA Artificial Tears (Artificial Tears) 1 drop OU Q8H PRN PRN Reason: DRY EYES Last Admin: 09/18/16 11:25 Dose: 1 drop Budesonide/Formoterol Fumarate (Symbicort 80/4.5mcg -) 2 puff IH BID [facility] Last Admin: 09/19/16 11:30 Dose: 2 puff Diltiazem HCl (Cardizem Cd -) 180 mg PO DAILY [facility] Last Admin: 09/19/16 12:29 Dose: 180 mg Enoxaparin Sodium (Lovenox -) 40 mg SQ DAILY [facility] Last Admin: 09/19/16 11:29 Dose: 40 mg Hydromorphone HCl (Dilaudid Injection -) 1 mg IVPUSH Q4H PRN PRN Reason: PAIN Last Admin: 09/19/16 12:49 Dose: 1 mg Potassium Chloride/Dextrose/Sod Cl (D5-1/2ns+20 Meq Kcl -) 1,000 mls @ 80 mls/ hr IV ASDIR [facility] Last Admin: 09/19/16 12:29 Dose: Not Given Ondansetron HCl (Zofran Injection) 8 mg IVPB Q6H PRN PRN Reason: NAUSEA Tiotropium [place] (Spiriva -) 1 puff IH DAILY [facility] Last Admin: 09/19/16 11:30 Dose: 1 puff - Objective Vital Signs: Vital Signs Temperature 98.2 F 09/19/16 14:37 Pulse Rate 90 09/19/16 14:37 Respiratory Rate 16 09/19/16 14:37 Blood Pressure 135/78 09/19/16 14:37 O2 Sat by Pulse Oximetry (%) 98 09/18/16 21:00 Labs: CBC, BMP 09/18/16 07:15 09/19/16 07:00 INR, PTT INR 1.04 (0.82-1.09) 09/16/16 16:03 Problem List - Problems (1) Intestinal obstruction due to adhesions Code(s): K56.5 - INTESTINAL ADHESIONS W OBST (POSTPROCEDURAL) (POSTINFECTION) (2) Asthma with COPD Code(s): J44.9 - CHRONIC OBSTRUCTIVE PULMONARY DISEASE, UNSPECIFIED J45.909 - UNSPECIFIED ASTHMA, UNCOMPLICATED (3) Abdominal pain Code(s): R10.9 - UNSPECIFIED ABDOMINAL PAIN Qualifiers: Abdominal location: epigastric Qualified Code(s): R10.13 - Epigastric pain (4) HTN (hypertension) Code(s): I10 - ESSENTIAL (PRIMARY) HYPERTENSION Assessment/Plan Patient is afebrile. Still has crampy abdominal pain , needing Dilaudid for pain relief. NG drainage 600ml. in 24 hours. She has not had a bowel movement. CT scan was reviewed with radiologist, there is a lop of distal jejunum that vshows thickening , and ? collapsed/ narrow distal bowel. This is suggestive of partial small bowel obstruction. There is air and feces in the cecum ascending colon. ? Partiel small bowel obstruction. The patient was explained the findings, and the need to continue naso gastric aspiration , and follow up X-ray imagimg. The need for surgery , if not resolved with nonsurgical management was explained.
--- NOTE | 2016-09-19 20:08 | PN ---
GI Progress Note Subjective: NGT remains in place Repeat CT scan revealed ventral hernia with non obstructed bowel loop and jejunal loop with low grade SBO No BM as of yet - Objective Vital Signs: Vital Signs Temperature 98.2 F 09/19/16 14:37 Pulse Rate 90 09/19/16 14:37 Respiratory Rate 16 09/19/16 14:37 Blood Pressure 135/78 09/19/16 14:37 O2 Sat by Pulse Oximetry (%) 98 09/19/16 09:00 Constitutional: No Distress Eyes: No: Sclera Icterus Cardiovascular: Yes: Tachycardia Respiratory: Yes: Diminished (at bases b/l) Gastrointestinal Inspection: Yes: Scars. No: Distention ...Auscultate: Yes: Normoactive Bowel Sounds ...Palpate: Yes: Tenderness (marked TTP mid abdomen) Neurological: Yes: Alert, Oriented Labs: CBC, BMP 09/18/16 07:15 09/19/16 07:00 INR, PTT INR 1.04 (0.82-1.09) 09/16/16 16:03 Problem List - Problems (1) Small bowel obstruction Assessment/Plan: Continuing conservative measures by surgery Plan per surgery Code(s): K56.69 - OTHER INTESTINAL OBSTRUCTION
[2016-09-20] MEDS: HYDROmorphone HCL CARPU-JECT 1 MG/1 ML DISP.SYRIN IVPUSH PRN ×5 (01:01→22:50)
[2016-09-20] MEDS: D5-1/2NS+20 MEQ KCL - 1,000 ML IV SCH ×3 (06:15→22:27)
[2016-09-20 07:41] LABS: BASOPHIL 0.2 % (0-2.0); EOSINOPHIL 2.4 % (0-4.5); MCH 30.2 pg (25.7-33.7); MEAN CELL VOLUME 88.8 fl (80-96); MEAN PLT VOLUME 6.9 fl (7.5-11.1); NEUTROPHILS 70.8 % (42.8-82.8); PLATELET COUNT 272 K/MM3 (134-434); RDW 14.5 % (11.6-15.6)
[2016-09-20 08:04] LABS: ALK PHOS 78 U/L (45-117); ANION GAP 12 (8-16); BILIRUBIN,TOTAL 1.2 mg/dL (0.2-1.0); CALCIUM 8.9 mg/dL (8.5-10.1); CO2 27 mmol/L (21-32); CREATININE 0.6 mg/dL (0.55-1.02); GLUCOSE,RANDOM 101 mg/dL (74-106); SGOT/AST 7 U/L (15-37); SGPT/ALT 12 U/L (12-78); TOT PROT 5.9 g/dl (6.4-8.2)
[2016-09-20] MEDS: ENOXAPARIN NA (PORCINE) 40 MG/0.4 ML DISP.SYRIN SQ SCH (10:50)
[2016-09-20] MEDS: TIOTROPIUM BROMIDE 18 MCG/INH (DEVICE W/ 5 CAPSULES) IH SCH (11:25)
[2016-09-20] MEDS: BUDESONIDE/FORMETEROL FUMARATE 80/4.5 mcg INHALER IH SCH ×2 (11:25→21:06)
--- NOTE | 2016-09-20 11:38 | PN ---
Progress Note, Physician Chief Complaint: Black material in NGT Has abd pain --occasional spasms no vomiting c/o left facial pain , gum pain ,left ear pain - Current Medication List Current Medications: Active Medications Albuterol Sulfate (Ventolin Hfa Inhaler -) 2 puff IH Q4H PRN PRN Reason: ASTHMA Artificial Tears (Artificial Tears) 1 drop OU Q8H PRN PRN Reason: DRY EYES Last Admin: 09/18/16 11:25 Dose: 1 drop Budesonide/Formoterol Fumarate (Symbicort 80/4.5mcg -) 2 puff IH BID [facility] Last Admin: 09/20/16 11:25 Dose: Not Given Diltiazem HCl (Cardizem Cd -) 180 mg PO DAILY [facility] Last Admin: 09/20/16 10:51 Dose: 180 mg Enoxaparin Sodium (Lovenox -) 40 mg SQ DAILY [facility] Last Admin: 09/20/16 10:50 Dose: 40 mg Hydromorphone HCl (Dilaudid Injection -) 1 mg IVPUSH Q4H PRN PRN Reason: PAIN Last Admin: 09/20/16 10:49 Dose: 1 mg Potassium Chloride/Dextrose/Sod Cl (D5-1/2ns+20 Meq Kcl -) 1,000 mls @ 80 mls/ hr IV ASDIR [facility] Last Admin: 09/20/16 06:15 Dose: 80 mls/hr Ondansetron HCl (Zofran Injection) 8 mg IVPB Q6H PRN PRN Reason: NAUSEA Tiotropium [place] (Spiriva -) 1 puff IH DAILY [facility] Last Admin: 09/20/16 11:25 Dose: 1 puff - Objective Vital Signs: Vital Signs Temperature 98.6 F 09/20/16 06:00 Pulse Rate 94 H 09/20/16 06:00 Respiratory Rate 20 09/20/16 06:00 Blood Pressure 130/97 09/20/16 06:00 O2 Sat by Pulse Oximetry (%) 92 L 09/19/16 21:00 Constitutional: Yes: No Distress, Other (NGT in left nostril) Cardiovascular: Yes: Regular Rate and Rhythm Respiratory: Yes: Rhonchi Gastrointestinal: Yes: Soft, Hypoactive Bowel Sounds, Tenderness. No: Distention Edema: No Labs: CBC, BMP 09/20/16 06:15 09/20/16 06:15 INR, PTT INR 1.04 (0.82-1.09) 09/16/16 16:03 Problem List - Problems (1) Asthma with COPD Code(s): J44.9 - CHRONIC OBSTRUCTIVE PULMONARY DISEASE, UNSPECIFIED J45.909 - UNSPECIFIED ASTHMA, UNCOMPLICATED (2) Intestinal obstruction due to adhesions Code(s): K56.5 - INTESTINAL ADHESIONS W OBST (POSTPROCEDURAL) (POSTINFECTION) (3) Small bowel obstruction Code(s): K56.69 - OTHER INTESTINAL OBSTRUCTION Assessment/Plan PLAN --- Keep NPO -- IV fluids -- pain control -- left facial pain due to NGT, possible sinus congestion--start Flagyl iv -- NG tube on suction -- monitor CBC --R/O upper GI bleed -- spoke to Dr Sal -- maritza Michele -- DVT prophylaxis with SCD -- FUA today
[2016-09-20] MEDS ORDERED: ALBUTEROL SO4 2.5/IPRATROPIUM 0.5 INH SOL 3 ML VIAL.NEB. NEB PRN (12:04)
[2016-09-20] MEDS: METRONIDAZOLE 500 MG PREMIXED 100 ML IVPB SCH ×2 (13:11→18:25)
--- NOTE | 2016-09-20 21:46 | PN ---
Progress Note, Physician - Current Medication List Current Medications: Active Medications Albuterol Sulfate (Ventolin Hfa Inhaler -) 2 puff IH Q4H PRN PRN Reason: ASTHMA Albuterol/Ipratropium (Duoneb -) 1 amp NEB Q6H PRN PRN Reason: SHORTNESS OF BREATH Artificial Tears (Artificial Tears) 1 drop OU Q8H PRN PRN Reason: DRY EYES Last Admin: 09/18/16 11:25 Dose: 1 drop Budesonide/Formoterol Fumarate (Symbicort 80/4.5mcg -) 2 puff IH BID [facility] Last Admin: 09/20/16 21:06 Dose: Not Given Diltiazem HCl (Cardizem Cd -) 180 mg PO DAILY [facility] Last Admin: 09/20/16 10:51 Dose: 180 mg Hydromorphone HCl (Dilaudid Injection -) 1 mg IVPUSH Q4H PRN PRN Reason: PAIN Last Admin: 09/20/16 17:20 Dose: 1 mg Potassium Chloride/Dextrose/Sod Cl (D5-1/2ns+20 Meq Kcl -) 1,000 mls @ 80 mls/ hr IV [facility]IR [facility] Last Admin: 09/20/16 12:00 Dose: Not Given Metronidazole (Flagyl 500mg Premixed Ivpb -) 100 mls @ 100 mls/hr IVPB Q8H-IV [facility] Last Admin: 09/20/16 18:25 Dose: 100 mls/hr Ondansetron HCl (Zofran Injection) 8 mg IVPB Q6H PRN PRN Reason: NAUSEA Tiotropium [place] (Spiriva -) 1 puff IH DAILY [facility] Last Admin: 09/20/16 11:25 Dose: 1 puff - Objective Vital Signs: Vital Signs Temperature 98.3 F 09/20/16 17:31 Pulse Rate 113 H 09/20/16 17:31 Respiratory Rate 20 09/20/16 17:31 Blood Pressure 129/86 09/20/16 17:31 O2 Sat by Pulse Oximetry (%) 97 09/20/16 21:00 Labs: CBC, BMP 09/20/16 06:15 09/20/16 06:15 INR, PTT INR 1.04 (0.82-1.09) 09/16/16 16:03 Problem List - Problems (1) Intestinal obstruction due to adhesions Code(s): K56.5 - INTESTINAL ADHESIONS W OBST (POSTPROCEDURAL) (POSTINFECTION) (2) Asthma with COPD Code(s): J44.9 - CHRONIC OBSTRUCTIVE PULMONARY DISEASE, UNSPECIFIED J45.909 - UNSPECIFIED ASTHMA, UNCOMPLICATED (3) Abdominal pain Code(s): R10.9 - UNSPECIFIED ABDOMINAL PAIN Qualifiers: Abdominal location: epigastric Qualified Code(s): R10.13 - Epigastric pain (4) HTN (hypertension) Code(s): I10 - ESSENTIAL (PRIMARY) HYPERTENSION Assessment/Plan Xray of the abdomen shows improvement , with no dilated loops of small intestine. NG drainage is minimal. WBC is normal. patient appears to have resolved her obstruction. will repeat abdominal XRay in the morning.
[2016-09-21] MEDS: METRONIDAZOLE 500 MG PREMIXED 100 ML IVPB SCH ×3 (01:12→17:38)
[2016-09-21 08:24] LABS: BASOPHIL 0.3 % (0-2.0); EOSINOPHIL 2.7 % (0-4.5); MCH 30.3 pg (25.7-33.7); MCHC 33.9 g/dl (32.0-36.0); MEAN CELL VOLUME 89.4 fl (80-96); MEAN PLT VOLUME 7.2 fl (7.5-11.1); NEUTROPHILS 73.8 % (42.8-82.8); PLATELET COUNT 269 K/MM3 (134-434); RDW 14.3 % (11.6-15.6); WHITE BLOOD COUNT 8.9 K/mm3 (4.0-10.0)
[2016-09-21 09:34] LABS: ALBUMIN 2.8 g/dl (3.4-5.0); ALK PHOS 74 U/L (45-117); ANION GAP 13 (8-16); CALCIUM 8.5 mg/dL (8.5-10.1); CO2 26 mmol/L (21-32); CREATININE 0.7 mg/dL (0.55-1.02); GLUCOSE,RANDOM 99 mg/dL (74-106); MAGNESIUM 1.9 mg/dL (1.8-2.4); SGOT/AST 8 U/L (15-37); SGPT/ALT 11 U/L (12-78); TOT PROT 5.6 g/dl (6.4-8.2)
[2016-09-21] MEDS: HYDROmorphone HCL CARPU-JECT 1 MG/1 ML DISP.SYRIN IVPUSH PRN ×3 (10:23→23:13)
[2016-09-21] MEDS: BUDESONIDE/FORMETEROL FUMARATE 80/4.5 mcg INHALER IH SCH ×2 (10:24→22:10)
[2016-09-21] MEDS: TIOTROPIUM BROMIDE 18 MCG/INH (DEVICE W/ 5 CAPSULES) IH SCH (10:24)
--- NOTE | 2016-09-21 11:06 | PN ---
Progress Note, Physician - Current Medication List Current Medications: Active Medications Albuterol Sulfate (Ventolin Hfa Inhaler -) 2 puff IH Q4H PRN PRN Reason: ASTHMA Albuterol/Ipratropium (Duoneb -) 1 amp NEB Q6H PRN PRN Reason: SHORTNESS OF BREATH Artificial Tears (Artificial Tears) 1 drop OU Q8H PRN PRN Reason: DRY EYES Last Admin: 09/18/16 11:25 Dose: 1 drop Budesonide/Formoterol Fumarate (Symbicort 80/4.5mcg -) 2 puff IH BID [facility] Last Admin: 09/21/16 10:24 Dose: Not Given Diltiazem HCl (Cardizem Cd -) 180 mg PO DAILY [facility] Last Admin: 09/21/16 10:22 Dose: 180 mg Hydromorphone HCl (Dilaudid Injection -) 1 mg IVPUSH Q4H PRN PRN Reason: PAIN Last Admin: 09/21/16 10:23 Dose: 1 mg Potassium Chloride/Dextrose/Sod Cl (D5-1/2ns+20 Meq Kcl -) 1,000 mls @ 80 mls/ hr IV ASDIR [facility] Last Admin: 09/20/16 22:27 Dose: 80 mls/hr Metronidazole (Flagyl 500mg Premixed Ivpb -) 100 mls @ 100 mls/hr IVPB Q8H-IV [facility] Last Admin: 09/21/16 10:22 Dose: 100 mls/hr Ondansetron HCl (Zofran Injection) 8 mg IVPB Q6H PRN PRN Reason: NAUSEA Tiotropium [place] (Spiriva -) 1 puff IH DAILY [facility] Last Admin: 09/21/16 10:24 Dose: 1 puff - Objective Vital Signs: Vital Signs Temperature 98.7 F 09/21/16 06:19 Pulse Rate 98 H 09/21/16 06:19 Respiratory Rate 18 09/21/16 06:19 Blood Pressure 125/72 09/21/16 06:19 O2 Sat by Pulse Oximetry (%) 97 09/20/16 21:00 Labs: CBC, BMP 09/21/16 06:15 09/21/16 06:15 INR, PTT INR 1.04 (0.82-1.09) 09/16/16 16:03 Problem List - Problems (1) Intestinal obstruction due to adhesions Code(s): K56.5 - INTESTINAL ADHESIONS W OBST (POSTPROCEDURAL) (POSTINFECTION) (2) Asthma with COPD Code(s): J44.9 - CHRONIC OBSTRUCTIVE PULMONARY DISEASE, UNSPECIFIED J45.909 - UNSPECIFIED ASTHMA, UNCOMPLICATED (3) Abdominal pain Code(s): R10.9 - UNSPECIFIED ABDOMINAL PAIN Qualifiers: Abdominal location: epigastric Qualified Code(s): R10.13 - Epigastric pain (4) HTN (hypertension) Code(s): I10 - ESSENTIAL (PRIMARY) HYPERTENSION Assessment/Plan Surgery: X-ray of the abdomen was requested for 7:00 a.m., but has still not been done. Patient still C/O upper abdominal pain. Abdomen is soft, not tender. Will do abdomen al CT scan tomorrow, if obstruction still persists will plan laparotomy on 09/23/2016. Patient is informed.
[2016-09-21] MEDS: D5-1/2NS+20 MEQ KCL - 1,000 ML IV SCH ×2 (11:41→17:43)
[2016-09-22] MEDS: ARTIFICIAL TEARS (POLYVINYL ALCOHOL 1.4%) OPTH DROPS OU PRN (00:43)
[2016-09-22] MEDS: METRONIDAZOLE 500 MG PREMIXED 100 ML IVPB SCH ×3 (02:08→18:18)
[2016-09-22] MEDS: D5-1/2NS+20 MEQ KCL - 1,000 ML IV SCH ×2 (06:40→14:00)
[2016-09-22] MEDS: HYDROmorphone HCL CARPU-JECT 1 MG/1 ML DISP.SYRIN IVPUSH PRN ×2 (07:15→14:00)
[2016-09-22] MEDS ORDERED: PT OWN MED DRAWER 7, Y5N ONE (10:58)
[2016-09-22] MEDS: TIOTROPIUM BROMIDE 18 MCG/INH (DEVICE W/ 5 CAPSULES) IH SCH (11:03)
[2016-09-22] MEDS: BUDESONIDE/FORMETEROL FUMARATE 80/4.5 mcg INHALER IH SCH ×2 (11:26→22:19)
--- NOTE | 2016-09-22 13:07 | PN ---
Progress Note, Physician Chief Complaint: No abd pain No nausea No bm or flatus - Current Medication List Current Medications: Active Medications Albuterol Sulfate (Ventolin Hfa Inhaler -) 2 puff IH Q4H PRN PRN Reason: ASTHMA Albuterol/Ipratropium (Duoneb -) 1 amp NEB Q6H PRN PRN Reason: SHORTNESS OF BREATH Last Admin: 09/21/16 12:17 Dose: 1 amp Artificial Tears (Artificial Tears) 1 drop OU Q8H PRN PRN Reason: DRY EYES Last Admin: 09/22/16 00:43 Dose: 1 drop Budesonide/Formoterol Fumarate (Symbicort 80/4.5mcg -) 2 puff IH BID [facility] Last Admin: 09/22/16 11:26 Dose: Not Given Diltiazem HCl (Cardizem Cd -) 180 mg PO DAILY [facility] Last Admin: 09/22/16 11:03 Dose: 180 mg Hydromorphone HCl (Dilaudid Injection -) 1 mg IVPUSH Q4H PRN PRN Reason: PAIN Last Admin: 09/22/16 07:15 Dose: 1 mg Potassium Chloride/Dextrose/Sod Cl (D5-1/2ns+20 Meq Kcl -) 1,000 mls @ 80 mls/ hr IV ASDIR [facility] Last Admin: 09/22/16 06:40 Dose: 80 mls/hr Metronidazole (Flagyl 500mg Premixed Ivpb -) 100 mls @ 100 mls/hr IVPB Q8H-IV [facility] Last Admin: 09/22/16 11:02 Dose: 100 mls/hr Ondansetron HCl (Zofran Injection) 8 mg IVPB Q6H PRN PRN Reason: NAUSEA Last Admin: 09/22/16 08:46 Dose: 8 mg Tiotropium [place] (Spiriva -) 1 puff IH DAILY [facility] Last Admin: 09/22/16 11:03 Dose: 1 puff - Objective Vital Signs: Vital Signs Temperature 98.9 F 09/22/16 10:00 Pulse Rate 100 H 09/22/16 10:00 Respiratory Rate 20 09/22/16 10:00 Blood Pressure 121/62 09/22/16 10:00 O2 Sat by Pulse Oximetry (%) 97 09/22/16 09:00 Constitutional: Yes: No Distress, Calm Cardiovascular: Yes: Regular Rate and Rhythm Respiratory: Yes: Diminished, Rhonchi Gastrointestinal: Yes: Soft, Hypoactive Bowel Sounds. No: Abdomen, Obese, Distention, Tenderness Edema: No Labs: CBC, BMP 09/21/16 06:15 09/21/16 06:15 INR, PTT INR 1.04 (0.82-1.09) 09/16/16 16:03 Problem List - Problems (1) Asthma with COPD Code(s): J44.9 - CHRONIC OBSTRUCTIVE PULMONARY DISEASE, UNSPECIFIED J45.909 - UNSPECIFIED ASTHMA, UNCOMPLICATED (2) Intestinal obstruction due to adhesions Code(s): K56.5 - INTESTINAL ADHESIONS W OBST (POSTPROCEDURAL) (POSTINFECTION) (3) Small bowel obstruction Code(s): K56.69 - OTHER INTESTINAL OBSTRUCTION Assessment/Plan PLAN --- NPO -- IV fluids -- pain control -- NG tube on suction -- monitor CBC -- resume Lovenox -- Ct abd results reviewed -- shows improvement -- surgery follow up -- DVT prophylaxis-- Lovenox -- not GI bleed per Surgeon
[2016-09-22] MEDS: PANTOPRAZOLE SODIUM 100 ML IVPB SCH (15:09)
--- NOTE | 2016-09-22 15:42 | PN ---
GI Progress Note Subjective: Abdominal pain improved No BM as of yet CT scan shows improvement of SBO - Objective Vital Signs: Vital Signs Temperature 98.2 F 09/22/16 14:55 Pulse Rate 107 H 09/22/16 14:55 Respiratory Rate 16 09/22/16 14:55 Blood Pressure 134/73 09/22/16 14:55 O2 Sat by Pulse Oximetry (%) 97 09/22/16 09:00 Constitutional: Calm Eyes: No: Sclera Icterus Cardiovascular: Yes: Regular Rate and Rhythm Respiratory: Yes: CTA Bilaterally Gastrointestinal Inspection: No: Distention ...Auscultate: Yes: Hypoactive Bowel Sounds ...Palpate: Yes: Tenderness (Minimal TTP, much improved from previous exam) Edema: No (No LE edema) Neurological: Yes: Alert, Oriented Labs: CBC, BMP 09/21/16 06:15 09/21/16 06:15 INR, PTT INR 1.04 (0.82-1.09) 09/16/16 16:03 - ....Imaging Cat Scan: Report Reviewed, Image Reviewed Problem List - Problems (1) Small bowel obstruction Assessment/Plan: Improving SBO per surgery, conservative measures. Dr. Sal D/Cing NGT and advancing diet Code(s): K56.69 - OTHER INTESTINAL OBSTRUCTION
--- NOTE | 2016-09-22 15:44 | PN ---
Progress Note, Physician - Current Medication List Current Medications: Active Medications Albuterol Sulfate (Ventolin Hfa Inhaler -) 2 puff IH Q4H PRN PRN Reason: ASTHMA Albuterol/Ipratropium (Duoneb -) 1 amp NEB Q6H PRN PRN Reason: SHORTNESS OF BREATH Last Admin: 09/21/16 12:17 Dose: 1 amp Artificial Tears (Artificial Tears) 1 drop OU Q8H PRN PRN Reason: DRY EYES Last Admin: 09/22/16 00:43 Dose: 1 drop Budesonide/Formoterol Fumarate (Symbicort 80/4.5mcg -) 2 puff IH BID [facility] Last Admin: 09/22/16 11:26 Dose: Not Given Diltiazem HCl (Cardizem Cd -) 180 mg PO DAILY [facility] Last Admin: 09/22/16 11:03 Dose: 180 mg Enoxaparin Sodium (Lovenox -) 40 mg SQ DAILY [facility] Hydromorphone HCl (Dilaudid Injection -) 1 mg IVPUSH Q4H PRN PRN Reason: PAIN Last Admin: 09/22/16 14:00 Dose: 1 mg Potassium Chloride/Dextrose/Sod Cl (D5-1/2ns+20 Meq Kcl -) 1,000 mls @ 80 mls/ hr IV ASDIR [facility] Last Admin: 09/22/16 14:00 Dose: Not Given Metronidazole (Flagyl 500mg Premixed Ivpb -) 100 mls @ 100 mls/hr IVPB Q8H-IV [facility] Last Admin: 09/22/16 11:02 Dose: 100 mls/hr Pantoprazole Sodium (Protonix 40mg Ivpb (Pre-Docked)) 100 mls @ 200 mls/hr IVPB DAILY [facility] Last Admin: 09/22/16 15:09 Dose: 200 mls/hr Ondansetron HCl (Zofran Injection) 8 mg IVPB Q6H PRN PRN Reason: NAUSEA Last Admin: 09/22/16 08:46 Dose: 8 mg Tiotropium [place] (Spiriva -) 1 puff IH DAILY [facility] Last Admin: 09/22/16 11:03 Dose: 1 puff - Objective Vital Signs: Vital Signs Temperature 98.2 F 09/22/16 14:55 Pulse Rate 107 H 09/22/16 14:55 Respiratory Rate 16 09/22/16 14:55 Blood Pressure 134/73 09/22/16 14:55 O2 Sat by Pulse Oximetry (%) 97 09/22/16 09:00 Labs: CBC, BMP 09/21/16 06:15 09/21/16 06:15 INR, PTT INR 1.04 (0.82-1.09) 09/16/16 16:03 Problem List - Problems (1) Intestinal obstruction due to adhesions Code(s): K56.5 - INTESTINAL ADHESIONS W OBST (POSTPROCEDURAL) (POSTINFECTION) (2) Asthma with COPD Code(s): J44.9 - CHRONIC OBSTRUCTIVE PULMONARY DISEASE, UNSPECIFIED J45.909 - UNSPECIFIED ASTHMA, UNCOMPLICATED (3) Abdominal pain Code(s): R10.9 - UNSPECIFIED ABDOMINAL PAIN Qualifiers: Qualified Code(s): R10.13 - Epigastric pain (4) HTN (hypertension) Code(s): I10 - ESSENTIAL (PRIMARY) HYPERTENSION Assessment/Plan CT scan done today , shows no intestinal obstruction , and resolution of the inflammatory changes in the jejunum. Patient is comfortable. Abdomen is soft, not distended, not tender. Impression : 1)resolved intestinal obstruction, 2)Recurrent ventral hernia, patient is made aware of recurrent, abdominal , ventral hernia. Plan: D/C NG tube, Resume diet. Patient is informed.
[2016-09-22] MEDS: AMITRIPTYLINE HCL 25 MG TABLET (FP) PO SCH (22:18)
[2016-09-23] MEDS: METRONIDAZOLE 500 MG PREMIXED 100 ML IVPB SCH ×3 (01:51→18:45)
[2016-09-23] MEDS: D5-1/2NS+20 MEQ KCL - 1,000 ML IV SCH (01:52)
[2016-09-23 07:46] LABS: BASOPHIL 0.5 % (0-2.0); EOSINOPHIL 4.4 % (0-4.5); MCH 29.6 pg (25.7-33.7); MCHC 33.2 g/dl (32.0-36.0); MEAN CELL VOLUME 89.2 fl (80-96); MEAN PLT VOLUME 7.2 fl (7.5-11.1); NEUTROPHILS 58.9 % (42.8-82.8); PLATELET COUNT 242 K/MM3 (134-434); RDW 14.4 % (11.6-15.6); WHITE BLOOD COUNT 5.8 K/mm3 (4.0-10.0)
[2016-09-23 08:03] LABS: ALBUMIN 2.6 g/dl (3.4-5.0); ANION GAP 12 (8-16); CALCIUM 8.2 mg/dL (8.5-10.1); CO2 25 mmol/L (21-32); CREATININE 0.7 mg/dL (0.55-1.02); GLUCOSE,RANDOM 107 mg/dL (74-106); MAGNESIUM 1.9 mg/dL (1.8-2.4); SGOT/AST 9 U/L (15-37); SGPT/ALT 10 U/L (12-78)
[2016-09-23 08:05] LABS: ALK PHOS 63 U/L (45-117); BILIRUBIN,TOTAL 0.6 mg/dL (0.2-1.0)
--- NOTE | 2016-09-23 08:44 | PN ---
Progress Note (short form) - Note Progress Note: SUBJECTIVE: Patient seen and examined. Patient comfortable. Mild abdominal soreness present. Otherwise denies pain. Passing gas. No bowel movement yet. Surgical follow up noted and also had discussed with Dr. Sal. OBJECTIVE: Vital Signs 09/23/16 06:00 Temperature 98.4 F Pulse Rate 90 Respiratory 20 Rate Blood Pressure 118/59 Intake & Output 09/22/16 09/23/16 09/23/16 23:59 07:59 15:59 Intake Total 680 980 Balance 680 980 Intake: IV 320 640 D5-1/2Ns+20 Meq KCl - 1, 320 640 000 ml @ 80 mls/hr IV ASDIR [facility] Rx#:[id number] IVPB 100 Oral 360 240 Other: Voiding Method Toilet # Unmeasured Voids Void 1 2 Active Medications Albuterol Sulfate (Ventolin Hfa Inhaler -) 2 puff IH Q4H PRN PRN Reason: ASTHMA Albuterol/Ipratropium (Duoneb -) 1 amp NEB Q6H PRN PRN Reason: SHORTNESS OF BREATH Last Admin: 09/21/16 12:17 Dose: 1 amp Amitriptyline HCl (Elavil -) 25 mg PO HS [facility] Last Admin: 09/22/16 22:18 Dose: 25 mg Artificial Tears (Artificial Tears) 1 drop OU Q8H PRN PRN Reason: DRY EYES Last Admin: 09/22/16 00:43 Dose: 1 drop Budesonide/Formoterol Fumarate (Symbicort 80/4.5mcg -) 2 puff IH BID [facility] Last Admin: 09/22/16 22:19 Dose: Not Given Diltiazem HCl (Cardizem Cd -) 180 mg PO DAILY [facility] Last Admin: 09/22/16 11:03 Dose: 180 mg Enoxaparin Sodium (Lovenox -) 40 mg SQ DAILY [facility] Hydromorphone HCl (Dilaudid Injection -) 1 mg IVPUSH Q4H PRN PRN Reason: PAIN Last Admin: 09/22/16 14:00 Dose: 1 mg Potassium Chloride/Dextrose/Sod Cl (D5-1/2ns+20 Meq Kcl -) 1,000 mls @ 80 mls/ hr IV ASDIR [facility] Last Admin: 09/23/16 01:52 Dose: 80 mls/hr Metronidazole (Flagyl 500mg Premixed Ivpb -) 100 mls @ 100 mls/hr IVPB Q8H-IV [facility] Last Admin: 09/23/16 01:51 Dose: 100 mls/hr Pantoprazole Sodium (Protonix 40mg Ivpb (Pre-Docked)) 100 mls @ 200 mls/hr IVPB DAILY [facility] Last Admin: 09/22/16 15:09 Dose: 200 mls/hr Ondansetron HCl (Zofran Injection) 8 mg IVPB Q6H PRN PRN Reason: NAUSEA Last Admin: 09/22/16 08:46 Dose: 8 mg Tiotropium [place] (Spiriva -) 1 puff IH DAILY [facility] Last Admin: 09/22/16 11:03 Dose: 1 puff CBC, BMP 09/23/16 06:15 09/23/16 06:15 Laboratory Results - last 24 hr 09/23/16 09/23/16 06:15 06:15 WBC 5.8 D RBC 3.92 Hgb 11.6 D Hct 35.0 MCV 89.2 MCHC 33.2 RDW 14.4 Plt Count 242 MPV 7.2 L Neutrophils % 58.9 D Lymphocytes % 27.1 D Monocytes % 9.1 Eosinophils % 4.4 Basophils % 0.5 Sodium 141 Potassium 4.0 Chloride 104 Carbon Dioxide 25 Anion Gap 12 BUN 13 Creatinine 0.7 Creat Clearance w eGFR > 60 Random Glucose 107 H Calcium 8.2 L Magnesium 1.9 Total Bilirubin 0.6 D AST 9 L ALT 10 L Alkaline Phosphatase 63 Total Protein 5.0 L Albumin 2.6 L PHYSICAL EXAMINATION: Constitutional: Yes: No Distress, Calm Cardiovascular: Yes: Regular Rate and Rhythm Respiratory: Yes: Diminished, Rhonchi Gastrointestinal: Yes: Soft, Bowel Sounds Present. Non-tender. Edema: No ASSESSMENT & PLAN: - Small bowel obstruction- Resolving. - Continue present care. - Mild hydration. - Advanced diet as tolerated. - Daily out of bed to chair. - If continue to improve, anticipate discharge by tomorrow. Problem List - Problems (1) Asthma with COPD Code(s): J44.9 - CHRONIC OBSTRUCTIVE PULMONARY DISEASE, UNSPECIFIED J45.909 - UNSPECIFIED ASTHMA, UNCOMPLICATED (2) Intestinal obstruction due to adhesions Code(s): K56.5 - INTESTINAL ADHESIONS W OBST (POSTPROCEDURAL) (POSTINFECTION) (3) Small bowel obstruction Code(s): K56.69 - OTHER INTESTINAL OBSTRUCTION Documentation prepared by Kami Adame, acting as a manager medical affairs for Carina Dixon MD.
[2016-09-23] MEDS ORDERED: PT OWN MED DRAWER 7, Y5N ONE (10:32)
[2016-09-23] MEDS: BUDESONIDE/FORMETEROL FUMARATE 80/4.5 mcg INHALER IH SCH ×2 (10:55→21:54)
[2016-09-23] MEDS: PANTOPRAZOLE SODIUM 100 ML IVPB SCH (10:55)
[2016-09-23] MEDS: ENOXAPARIN NA (PORCINE) 40 MG/0.4 ML DISP.SYRIN SQ SCH (10:55)
[2016-09-23] MEDS: TIOTROPIUM BROMIDE 18 MCG/INH (DEVICE W/ 5 CAPSULES) IH SCH (10:57)
[2016-09-23 12:41] LABS: URINE APPEARANCE CLEAR; URINE BILIRUBIN NEGATIVE (NEGATIVE); URINE COLOR DKYELLOW; URINE GLUCOSE (UA) NEGATIVE (NEGATIVE); URINE KETONE 1+ (NEGATIVE); URINE NITRITE NEGATIVE (NEGATIVE); URINE PROTEIN NEGATIVE (NEGATIVE); URINE UROBILINOGEN NEGATIVE E.U./dl (0.2-1.0)
--- NOTE | 2016-09-23 13:02 | PN ---
Progress Note, Physician - Current Medication List Current Medications: Active Medications Albuterol Sulfate (Ventolin Hfa Inhaler -) 2 puff IH Q4H PRN PRN Reason: ASTHMA Albuterol/Ipratropium (Duoneb -) 1 amp NEB Q6H PRN PRN Reason: SHORTNESS OF BREATH Last Admin: 09/21/16 12:17 Dose: 1 amp Amitriptyline HCl (Elavil -) 25 mg PO HS [facility] Last Admin: 09/22/16 22:18 Dose: 25 mg Artificial Tears (Artificial Tears) 1 drop OU Q8H PRN PRN Reason: DRY EYES Last Admin: 09/22/16 00:43 Dose: 1 drop Budesonide/Formoterol Fumarate (Symbicort 80/4.5mcg -) 2 puff IH BID [facility] Last Admin: 09/23/16 10:55 Dose: Not Given Diltiazem HCl (Cardizem Cd -) 180 mg PO DAILY [facility] Last Admin: 09/23/16 10:55 Dose: 180 mg Enoxaparin Sodium (Lovenox -) 40 mg SQ DAILY [facility] Last Admin: 09/23/16 10:55 Dose: 40 mg Hydromorphone HCl (Dilaudid Injection -) 1 mg IVPUSH Q4H PRN PRN Reason: PAIN Last Admin: 09/22/16 14:00 Dose: 1 mg Potassium Chloride/Dextrose/Sod Cl (D5-1/2ns+20 Meq Kcl -) 1,000 mls @ 80 mls/ hr IV ASDIR [facility] Last Admin: 09/23/16 01:52 Dose: 80 mls/hr Metronidazole (Flagyl 500mg Premixed Ivpb -) 100 mls @ 100 mls/hr IVPB Q8H-IV [facility] Last Admin: 09/23/16 10:55 Dose: 100 mls/hr Pantoprazole Sodium (Protonix 40mg Ivpb (Pre-Docked)) 100 mls @ 200 mls/hr IVPB DAILY [facility] Last Admin: 09/23/16 10:55 Dose: 200 mls/hr Ondansetron HCl (Zofran Injection) 8 mg IVPB Q6H PRN PRN Reason: NAUSEA Last Admin: 09/22/16 08:46 Dose: 8 mg Tiotropium [place] (Spiriva -) 1 puff IH DAILY [facility] Last Admin: 09/23/16 10:57 Dose: 1 puff - Objective Vital Signs: Vital Signs Temperature 98.4 F 09/23/16 06:00 Pulse Rate 90 09/23/16 06:00 Respiratory Rate 20 09/23/16 06:00 Blood Pressure 118/59 09/23/16 06:00 O2 Sat by Pulse Oximetry (%) 97 09/22/16 21:00 Labs: CBC, BMP 09/23/16 06:15 09/23/16 06:15 INR, PTT INR 1.04 (0.82-1.09) 09/16/16 16:03 Problem List - Problems (1) Intestinal obstruction due to adhesions Code(s): K56.5 - INTESTINAL ADHESIONS W OBST (POSTPROCEDURAL) (POSTINFECTION) (2) Asthma with COPD Code(s): J44.9 - CHRONIC OBSTRUCTIVE PULMONARY DISEASE, UNSPECIFIED J45.909 - UNSPECIFIED ASTHMA, UNCOMPLICATED (3) Abdominal pain Code(s): R10.9 - UNSPECIFIED ABDOMINAL PAIN Qualifiers: Abdominal location: epigastric Qualified Code(s): R10.13 - Epigastric pain (4) HTN (hypertension) Code(s): I10 - ESSENTIAL (PRIMARY) HYPERTENSION Assessment/Plan Surgery: patient has no abdominal pain, tolerating diet. Abdomen is soft, not tender. No abdominal distention. Discharge , after bowel movement.
[2016-09-23 13:09] LABS: URINE BLOOD 2+ (NEGATIVE); URINE LEUK ESTERASE 2+ (NEGATIVE)
[2016-09-23 13:11] LABS: URINE BACTERIA RARE /hpf (NONE SEEN); URINE MUCUS FEW; URINE RBC 8 /hpf (0-3); URINE WBC 1 /hpf (3-5)
[2016-09-23] MEDS: AMITRIPTYLINE HCL 25 MG TABLET (FP) PO SCH (21:54)
[2016-09-24] MEDS: METRONIDAZOLE 500 MG PREMIXED 100 ML IVPB SCH ×2 (02:06→09:14)
[2016-09-24] MEDS ORDERED: PT OWN MED DRAWER 7, Y5N ONE (09:11)
[2016-09-24] MEDS: TIOTROPIUM BROMIDE 18 MCG/INH (DEVICE W/ 5 CAPSULES) IH SCH (09:13)
[2016-09-24] MEDS: ENOXAPARIN NA (PORCINE) 40 MG/0.4 ML DISP.SYRIN SQ SCH (09:14)
[2016-09-24] MEDS: BUDESONIDE/FORMETEROL FUMARATE 80/4.5 mcg INHALER IH SCH ×2 (09:14→22:02)
[2016-09-24] MEDS: HYDROmorphone HCL CARPU-JECT 1 MG/1 ML DISP.SYRIN IVPUSH PRN (10:28)
[2016-09-24] MEDS ORDERED: ONDANSETRON *ODT* 4 MG TABLET SL PRN (11:00)
[2016-09-24] MEDS ORDERED: traMADol HCL 50 MG TABLET PO PRN (11:00)
[2016-09-24] MEDS: PANTOPRAZOLE 40 MG TABLET (FP) PO SCH ×2 (11:12→11:46)
[2016-09-24] MEDS: PANTOPRAZOLE SODIUM 100 ML IVPB SCH (11:14)
[2016-09-24] MEDS: oxyCODONE HCL 5 MG TABLET PO PRN ×2 (11:46→17:02)
--- NOTE | 2016-09-24 12:39 | PN ---
Progress Note, Physician Chief Complaint: No abd pain No nausea tolerating PO has flatus no BM - Current Medication List Current Medications: Active Medications Albuterol Sulfate (Ventolin Hfa Inhaler -) 2 puff IH Q4H PRN PRN Reason: ASTHMA Albuterol/Ipratropium (Duoneb -) 1 amp NEB Q6H PRN PRN Reason: SHORTNESS OF BREATH Last Admin: 09/21/16 12:17 Dose: 1 amp Amitriptyline HCl (Elavil -) 25 mg PO HS [facility] Last Admin: 09/23/16 21:54 Dose: 25 mg Artificial Tears (Artificial Tears) 1 drop OU Q8H PRN PRN Reason: DRY EYES Last Admin: 09/22/16 00:43 Dose: 1 drop Budesonide/Formoterol Fumarate (Symbicort 80/4.5mcg -) 2 puff IH BID [facility] Last Admin: 09/24/16 09:14 Dose: Not Given Diltiazem HCl (Cardizem Cd -) 180 mg PO DAILY [facility] Last Admin: 09/24/16 09:14 Dose: 180 mg Docusate Sodium (Colace -) 100 mg PO BID PRN PRN Reason: CONSTIPATION Enoxaparin Sodium (Lovenox -) 40 mg SQ DAILY [facility] Last Admin: 09/24/16 09:14 Dose: 40 mg Metronidazole (Flagyl -) 500 mg PO TID [facility] Ondansetron HCl (Zofran Odt -) 4 mg SL Q6H PRN PRN Reason: NAUSEA AND/OR VOMITING Oxycodone HCl (Roxicodone -) 5 mg PO Q4H PRN PRN Reason: PAIN Last Admin: 09/24/16 11:46 Dose: 5 mg Pantoprazole Sodium (Protonix -) 40 mg PO DAILY [facility] Last Admin: 09/24/16 11:46 Dose: 40 mg Tiotropium [place] (Spiriva -) 1 puff IH DAILY [facility] Last Admin: 09/24/16 09:13 Dose: 1 puff - Objective Vital Signs: Vital Signs Temperature 98.2 F 09/24/16 10:00 Pulse Rate 74 09/24/16 10:00 Respiratory Rate 20 09/24/16 10:00 Blood Pressure 121/76 09/24/16 10:00 O2 Sat by Pulse Oximetry (%) 100 09/24/16 09:00 Constitutional: Yes: No Distress, Calm Cardiovascular: Yes: Regular Rate and Rhythm Respiratory: Yes: Diminished Gastrointestinal: Yes: Normal Bowel Sounds, Soft. No: Distention, Tenderness Edema: No Psychiatric: Yes: Alert, Oriented Labs: CBC, BMP 09/23/16 06:15 09/23/16 06:15 INR, PTT INR 1.04 (0.82-1.09) 09/16/16 16:03 Problem List - Problems (1) Asthma with COPD Code(s): J44.9 - CHRONIC OBSTRUCTIVE PULMONARY DISEASE, UNSPECIFIED J45.909 - UNSPECIFIED ASTHMA, UNCOMPLICATED (2) Intestinal obstruction due to adhesions Code(s): K56.5 - INTESTINAL ADHESIONS W OBST (POSTPROCEDURAL) (POSTINFECTION) (3) Small bowel obstruction Code(s): K56.69 - OTHER INTESTINAL OBSTRUCTION Assessment/Plan PLAN tolerating diet -- pain control -- spoke with surgeon -- DVT prophylaxis-- Lovenox -- continue with meds OOB
[2016-09-24] MEDS: metroNIDAZOLE 250 MG TABLET PO SCH ×2 (14:00→22:01)
[2016-09-24] MEDS: DOCUSATE SODIUM 100 MG CAPSULE (FP) PO PRN (22:01)
[2016-09-24] MEDS: AMITRIPTYLINE HCL 25 MG TABLET (FP) PO SCH (22:01)
[2016-09-25] MEDS: metroNIDAZOLE 250 MG TABLET PO SCH ×3 (06:09→22:12)
--- NOTE | 2016-09-25 09:18 | PN ---
Progress Note, Physician Chief Complaint: no bm so far, has occasional cramping in abdomen tolerating diet passes flatus - Current Medication List Current Medications: Active Medications Albuterol Sulfate (Ventolin Hfa Inhaler -) 2 puff IH Q4H PRN PRN Reason: ASTHMA Albuterol/Ipratropium (Duoneb -) 1 amp NEB Q6H PRN PRN Reason: SHORTNESS OF BREATH Last Admin: 09/21/16 12:17 Dose: 1 amp Amitriptyline HCl (Elavil -) 25 mg PO HS [facility] Last Admin: 09/24/16 22:01 Dose: 25 mg Artificial Tears (Artificial Tears) 1 drop OU Q8H PRN PRN Reason: DRY EYES Last Admin: 09/22/16 00:43 Dose: 1 drop Budesonide/Formoterol Fumarate (Symbicort 80/4.5mcg -) 2 puff IH BID [facility] Last Admin: 09/24/16 22:02 Dose: Not Given Diltiazem HCl (Cardizem Cd -) 180 mg PO DAILY [facility] Last Admin: 09/24/16 09:14 Dose: 180 mg Docusate Sodium (Colace -) 100 mg PO BID PRN PRN Reason: CONSTIPATION Last Admin: 09/24/16 22:01 Dose: 100 mg Enoxaparin Sodium (Lovenox -) 40 mg SQ DAILY [facility] Last Admin: 09/24/16 09:14 Dose: 40 mg Metronidazole (Flagyl -) 500 mg PO TID [facility] Last Admin: 09/25/16 06:09 Dose: 500 mg Ondansetron HCl (Zofran Odt -) 4 mg SL Q6H PRN PRN Reason: NAUSEA AND/OR VOMITING Oxycodone HCl (Roxicodone -) 5 mg PO Q4H PRN PRN Reason: PAIN Last Admin: 09/24/16 17:02 Dose: 5 mg Pantoprazole Sodium (Protonix -) 40 mg PO DAILY [facility] Last Admin: 09/24/16 11:46 Dose: 40 mg Tiotropium [place] (Spiriva -) 1 puff IH DAILY [facility] Last Admin: 09/24/16 09:13 Dose: 1 puff - Objective Vital Signs: Vital Signs Temperature 98.6 F 09/25/16 08:42 Pulse Rate 89 09/25/16 08:42 Respiratory Rate 20 09/25/16 08:42 Blood Pressure 121/69 09/25/16 08:42 O2 Sat by Pulse Oximetry (%) 97 09/24/16 21:00 Constitutional: Yes: No Distress Cardiovascular: Yes: Regular Rate and Rhythm Respiratory: Yes: Diminished Gastrointestinal: Yes: Normal Bowel Sounds, Soft. No: Distention, Tenderness Edema: No Labs: CBC, BMP 09/23/16 06:15 09/23/16 06:15 INR, PTT INR 1.04 (0.82-1.09) 09/16/16 16:03 Problem List - Problems (1) Asthma with COPD Code(s): J44.9 - CHRONIC OBSTRUCTIVE PULMONARY DISEASE, UNSPECIFIED J45.909 - UNSPECIFIED ASTHMA, UNCOMPLICATED (2) Intestinal obstruction due to adhesions Code(s): K56.5 - INTESTINAL ADHESIONS W OBST (POSTPROCEDURAL) (POSTINFECTION) (3) Small bowel obstruction Code(s): K56.69 - OTHER INTESTINAL OBSTRUCTION Assessment/Plan PLAN tolerating diet -- pain control -- spoke with surgeon -- DVT prophylaxis-- Lovenox -- continue with meds OOB will dc home if after bm
[2016-09-25] MEDS: BUDESONIDE/FORMETEROL FUMARATE 80/4.5 mcg INHALER IH SCH ×2 (09:52→22:20)
[2016-09-25] MEDS: TIOTROPIUM BROMIDE 18 MCG/INH (DEVICE W/ 5 CAPSULES) IH SCH (09:55)
[2016-09-25] MEDS: ENOXAPARIN NA (PORCINE) 40 MG/0.4 ML DISP.SYRIN SQ SCH (09:55)
[2016-09-25] MEDS: oxyCODONE HCL 5 MG TABLET PO PRN ×2 (09:55→16:49)
[2016-09-25] MEDS: POLYETHYLENE GLYCOL 3350 119 GM BTL PO SCH (09:56)
[2016-09-25] MEDS: ACETAMINOPHEN 325 MG TABLET (FP) PO PRN ×2 (09:56→16:49)
[2016-09-25] MEDS: PANTOPRAZOLE 40 MG TABLET (FP) PO SCH (09:57)
[2016-09-25] MEDS ORDERED: prednisoLONE ACETATE 1% OPHTH SUSP 5 ML BOTTLE OU PRN ×2 (14:14→14:15)
[2016-09-25] MEDS ORDERED: PT OWN MED DRAWER 7, Y5N ONE ×2 (16:15→16:42)
[2016-09-25] MEDS: DOCUSATE SODIUM 100 MG CAPSULE (FP) PO PRN (22:12)
[2016-09-25] MEDS: AMITRIPTYLINE HCL 25 MG TABLET (FP) PO SCH (22:12)
[2016-09-26] MEDS: metroNIDAZOLE 250 MG TABLET PO SCH (06:08)
--- NOTE | 2016-09-26 08:17 | PN ---
Progress Note (short form) - Note Progress Note: SUBJECTIVE: Patient seen and examined. Feels well. Denies abdominal pain. Passing gas. No bowel movement yet. Chief complaint: Pain in the knee. Tolerating diet. OBJECTIVE: Vital Signs 09/26/16 09/26/16 09/26/16 06:00 09:00 09:06 Temperature 98.4 F 98.5 F Pulse Rate 74 83 Respiratory 16 16 16 Rate Blood Pressure 103/61 126/74 O2 Sat by Pulse 98 Oximetry (%) Intake & Output 09/25/16 09/26/16 09/26/16 23:59 07:59 15:59 Intake Total 360 0 Balance 360 0 Intake: Oral 360 0 Other: Voiding Method Toilet Toilet Toilet # Unmeasured Voids Void 1 2 Bowel Movement No No Active Medications Acetaminophen (Tylenol -) 325 mg PO Q6H PRN PRN Reason: FEVER OR PAIN Last Admin: 09/25/16 16:49 Dose: 325 mg Albuterol Sulfate (Ventolin Hfa Inhaler -) 2 puff IH Q4H PRN PRN Reason: ASTHMA Albuterol/Ipratropium (Duoneb -) 1 amp NEB Q6H PRN PRN Reason: SHORTNESS OF BREATH Last Admin: 09/21/16 12:17 Dose: 1 amp Amitriptyline HCl (Elavil -) 25 mg PO HS [facility] Last Admin: 09/25/16 22:12 Dose: 25 mg Artificial Tears (Artificial Tears) 1 drop OU Q8H PRN PRN Reason: DRY EYES Last Admin: 09/22/16 00:43 Dose: 1 drop Budesonide/Formoterol Fumarate (Symbicort 80/4.5mcg -) 2 puff IH BID [facility] Last Admin: 09/26/16 09:24 Dose: Not Given Diltiazem HCl (Cardizem Cd -) 180 mg PO DAILY [facility] Last Admin: 09/26/16 09:23 Dose: 180 mg Docusate Sodium (Colace -) 100 mg PO BID PRN PRN Reason: CONSTIPATION Last Admin: 09/25/16 22:12 Dose: 100 mg Enoxaparin Sodium (Lovenox -) 40 mg SQ DAILY [facility] Last Admin: 09/26/16 09:29 Dose: Not Given Metronidazole (Flagyl -) 500 mg PO TID [facility] Last Admin: 09/26/16 06:08 Dose: 500 mg Ondansetron HCl (Zofran Odt -) 4 mg SL Q6H PRN PRN Reason: NAUSEA AND/OR VOMITING Oxycodone HCl (Roxicodone -) 5 mg PO Q4H PRN PRN Reason: PAIN Last Admin: 09/25/16 16:49 Dose: 5 mg Pantoprazole Sodium (Protonix -) 40 mg PO DAILY [facility] Last Admin: 09/26/16 09:23 Dose: 40 mg Polyethylene Glycol (Miralax (For Daily Use) -) 17 gm PO DAILY [facility] Last Admin: 09/26/16 09:23 Dose: 17 gm Prednisolone Acetate (Pred Forte 1% -) 1 drop OU Q8H PRN Last Admin: 09/25/16 16:46 Dose: 1 drop Prednisolone Acetate (Pred Forte 1% -) 2 drop OU Q8H PRN Tiotropium [place] (Spiriva -) 1 puff IH DAILY [facility] Last Admin: 09/26/16 09:25 Dose: 1 puff CBC, BMP 09/23/16 06:15 09/23/16 06:15 PHYSICAL EXAMINATION: Constitutional: Yes: No Distress Cardiovascular: Yes: Regular Rate and Rhythm Respiratory: Yes: Diminished Gastrointestinal: Yes: Normal Bowel Sounds, Soft. No: Distention, Tenderness Edema: No ASSESSMENT & PLAN: - Clincally stable. - Small bowel obstruction- resolved. - Will discharge home today - Patient requests pain medication for carl knee. - Explained that Oxycodone is not a good idea. - Patient still requests and states that she is in too much pain. Will give short supply. - Patient to follow with Orthopedic as outpatient. - Follow up in the office as directed as well as with Surgeon. - Patient in agreement. Problem List - Problems (1) Asthma with COPD Code(s): J44.9 - CHRONIC OBSTRUCTIVE PULMONARY DISEASE, UNSPECIFIED J45.909 - UNSPECIFIED ASTHMA, UNCOMPLICATED (2) Intestinal obstruction due to adhesions Code(s): K56.5 - INTESTINAL ADHESIONS W OBST (POSTPROCEDURAL) (POSTINFECTION) (3) Small bowel obstruction Code(s): K56.69 - OTHER INTESTINAL OBSTRUCTION Documentation prepared by Kami Adame, acting as a esthetician and manager medical spa for Carina Dixon MD.
[2016-09-26 09:06] VITALS: BP 126/74; PULSE 83; TEMP 98.5
[2016-09-26] MEDS ORDERED: PT OWN MED DRAWER 7, Y5N ONE (09:20)
[2016-09-26] MEDS: POLYETHYLENE GLYCOL 3350 119 GM BTL PO SCH (09:23)
[2016-09-26] MEDS: PANTOPRAZOLE 40 MG TABLET (FP) PO SCH (09:23)
[2016-09-26] MEDS: BUDESONIDE/FORMETEROL FUMARATE 80/4.5 mcg INHALER IH SCH (09:24)
[2016-09-26] MEDS: TIOTROPIUM BROMIDE 18 MCG/INH (DEVICE W/ 5 CAPSULES) IH SCH (09:25)
[2016-09-26] MEDS: ENOXAPARIN NA (PORCINE) 40 MG/0.4 ML DISP.SYRIN SQ SCH (09:29)
--- NOTE | 2016-09-26 12:29 | DS ---
Physical Examination Vital Signs: Vital Signs Temperature 98.5 F 09/26/16 09:06 Pulse Rate 83 09/26/16 09:06 Respiratory Rate 16 09/26/16 09:06 Blood Pressure 126/74 09/26/16 09:06 O2 Sat by Pulse Oximetry (%) 98 09/26/16 09:00 Findings/Remarks: see today progress note Labs: CBC, BMP 09/23/16 06:15 09/23/16 06:15 Discharge Summary Reason For Visit: SMALL BOWELL OBSTRUCTION Current Active Problems Asthma with COPD (Acute) Shortness of breath (Acute) Hospital Course: Admitted for sbo treated conservatively surgery followed sbo resolved d/c home today f/u in office as well as with Dr. Sal as directed Pt in agreement Condition: Fair - Instructions Diet, Activity, Other Instructions: Activity as tolerated May take shower Soft diet encourage fluid intake Referrals: Bibiana Moran DIET [Primary Care Provider] - Janet Moss MD [Staff Physician] - Micaela Sal MD [Staff Physician] - Disposition: HOME - Home Medications Comprehensive Discharge Medication List: Ambulatory Orders Albuterol Sulfate Inhaler - [Ventolin HFA Inhaler -] 1 - 2 inh PO Q4H PRN MDD UNKNOWN 06/24/15 Atorvastatin Ca [Lipitor] 10 mg PO DAILY 06/24/15 Roflumilast [Daliresp] 500 mcg PO DAILY 06/24/15 Tiotropium [place] [Spiriva] 1 inh PO DAILY 06/24/15 Aspirin [ASA -] 81 mg PO DAILY 03/21/16 Cholecalciferol (Vitamin D3) [Vitamin D -] 400 unit PO DAILY tablet 03/28/16 Cyanocobalamin [Vitamin B12 -] 1,000 mcg PO DAILY tablet 03/28/16 Fluticasone/Salmeterol [Advair 250-50 Diskus] 1 each IH BID 04/24/16 Acetaminophen [Tylenol .Regular Strength -] 650 mg PO Q4H PRN #0 tablet Pantoprazole Sodium [Protonix] 40 mg PO DAILY #30 05/02/16 Clonazepam [Klonopin] 0.5 mg PO ASDIR PRN 06/04/16 Diltiazem Cd [Cardizem Cd -] 180 mg PO DAILY #60 cap.cd.24h 06/08/16 Amitriptyline HCl [Elavil -] 25 mg PO HS 09/23/16 Acetaminophen [Tylenol .Regular Strength -] 325 mg PO Q6H PRN #0 tablet Albuterol 2.5/Ipratropium 0.5 [Duoneb -] 1 amp NEB Q6H PRN #0 amp 09/26/16 Docusate Sodium [Colace -] 100 mg PO BID PRN #0 capsule 09/26/16 Oxycodone HCl [Roxicodone -] 5 mg PO Q6H PRN #20 tablet MDD 3 09/26/16 Pantoprazole Sodium [Protonix -] 40 mg PO DAILY tablet.ec 09/26/16 Polyethylene Glycol 3350 [Miralax 119 gm Btl -] 17 gm PO DAILY #30 bottle Polyvinyl Alcohol [Artificial Tears] 1 drop OU Q8H PRN #0 drops 09/26/16 Prednisolone 1% Ophthalmic [Pred Forte 1% -] 2 drop OU Q8H PRN #0 drops
== END 2016-09-26 11:43 | disposition home or self-care (01) | DRG 395 ==
LOC: JER 21:15 → SUPCPDRO 21:15 → JERBED 09-17 03:44 → J8W 09-17 13:09
PROVIDERS: ADMIT Internal Medicine; ATTEND Internal Medicine
PROC: 0D9670Z Drainage of Stomach with Drainage Device, Via Natural or Artificial Opening (ICD-10-PCS; principal; 2016-09-17)
DX: K43.6 Other and unspecified ventral hernia with obstruction, without gangrene (principal); I10 Essential (primary) hypertension; J45.909 Unspecified asthma, uncomplicated; E78.5 Hyperlipidemia, unspecified; J44.9 Chronic obstructive pulmonary disease, unspecified; Z88.0 Allergy status to penicillin; K21.9 Gastro-esophageal reflux disease without esophagitis; E66.9 Obesity, unspecified; Z68.30 Body mass index [BMI] 30.0-30.9, adult
CPT/HCPCS: 36415; 71010-TC; 74020-TC; 74176-TC; 74177-TC; 80048; 80053; 81003; 81015; 83690; 83735; 85025; 85610; 85730; 93005; 93010; 94640; 99284-25; Q9967

== ENCOUNTER 2016-11-23 07:42 | Day surgery (SDC) | payer OTHER, BC ==
[2016-11-22 12:15] VITALS: BMI 31.1
[2016-11-23] MEDS ORDERED: LIDOCAINE 1%/EPI 1:100000 (50 ML MULTI DOSE VIAL) ONE (08:37)
[2016-11-23] MEDS ORDERED: BUPIVACAINE HCL/PF 0.5% (5MG/ML) 10 ML VIAL ONE (08:38)
--- NOTE | 2016-11-23 09:28 | HP ---
Satellite H - Chief Complaint Chief Complaint: right knee pain - Past Medical History Allergies/Adverse Reactions: Allergies Allergy/AdvReac Type Severity Reaction Status Date / Time Penicillins Allergy Hives Verified 11/23/16 08:11 Sulfa (Sulfonamide Allergy Hives Verified 11/23/16 08:11 Antibiotics) [Sulfa(Sulfonamide Antibiotics)] Cardiovascular: Yes: HTN Pulmonary: Yes: COPD Gastrointestinal: Yes: Other (HERNIA REPAIR WITH COMPLICATIONS AND POST OP SBO) ...LMP: 08/04/13 Heme/Onc: Yes: B12 Deficiency - Current Medications Current Medications: Home Medications Medication Instructions Recorded Atorvastatin Ca [Lipitor] 10 mg PO HS 06/24/15 Roflumilast [Daliresp] 500 mcg PO DAILY 06/24/15 Tiotropium [place] [Spiriva] 1 inh PO DAILY 06/24/15 Aspirin [ASA -] 81 mg PO DAILY 03/21/16 Cholecalciferol (Vitamin D3) 400 unit PO DAILY tablet 03/28/16 [Vitamin D -] Cyanocobalamin [Vitamin B12 -] 1,000 mcg PO DAILY tablet 03/28/16 Diltiazem Cd [Cardizem Cd -] 180 mg PO DAILY #60 cap.cd.24h 06/08/16 Amitriptyline HCl [Elavil -] 25 mg PO HS 09/23/16 Pantoprazole Sodium [Protonix -] 40 mg PO DAILY tablet.ec 09/26/16 Clonazepam [Klonopin -] 0.5 mg PO PRN PRN 11/23/16 [place]-3 Fatty Acids [Fish Oil] 300 mg PO DAILY 11/23/16 Oxycodone HCl/Acetaminophen 1 - 2 tab PO Q6H #50 tab MDD 8 11/23/16 [Percocet 5-325 mg Tablet -] Salmeterol/Fluticasone [Advair 1 inh PO BID 11/23/16 500Mcg/50Mcg -] Satellite Physical Exam - Physical Examination Vital Signs: Vital Signs Period Temp Pulse Resp BP Sys/Jordan Pulse Ox Last 24 Hr 97.9 F-97.9 F 93-93 20-20 125-125/74-74 96 General Appearance: Well Nourished, Well Developed, Alert & Oriented x3 ENT: Clear Lung: Normal air movement Heart: Regular rate & rhythm Extremities: Other (right knee- + swelling, + ttp, decr rom, + mcmurrays, nvi MRI + mt) Neurological: Intact, Alert, Oriented Satellite Impression/Plan - Impression/Plan Impression: right knee internal derangement Operative Procedure: right knee arthroscopy Date to be Performed: 11/23/16
[2016-11-23] MEDS ORDERED: LIDOCAINE 1%/EPI 1:100000 (20 ML MULTI DOSE VIAL) INF ONE (09:38)
[2016-11-23] MEDS ORDERED: BUPIVACAINE HCL/PF 0.5% (5MG/ML) 10 ML VIAL IJ ONE (09:38)
[2016-11-23] MEDS ORDERED: oxyCODONE HCL 5 MG TABLET PO PRN (09:40)
[2016-11-23] MEDS ORDERED: ONDANSETRON 4 MG/2 ML VIAL IVPUSH PRN (09:40)
[2016-11-23] MEDS ORDERED: LACTATED RINGERS SOLUTION 1,000 ML IV SCH (09:45)
[2016-11-23] MEDS ORDERED: PROPOFOL 20 ML ONE (09:47)
--- NOTE | 2016-11-23 10:11 | OP ---
Operative Note - Note: Operative Date: 11/23/16 Pre-Operative Diagnosis: internal derangement right knee Operation: arthroscopy right knee with chondroplasty [facility] Post-Operative Diagnosis: Same as Pre-op Anesthesia: General Estimated Blood Loss (mls): 0 Operative Report Dictated: Yes
[2016-11-23] MEDS ORDERED: ACETAMINOPHEN 1000 MG/100 ML VIAL (NON FORMULARY) IVPB PRN (10:23)
[2016-11-23] MEDS ORDERED: oxyCODONE HCL 5 MG TABLET ONE (12:40)
[2016-11-23 13:20] VITALS: TEMP 97.7
[2016-11-23] MEDS ORDERED: oxyCODONE HCL 5 MG TABLET PO ONE (14:43)
[2016-11-23 17:37] VITALS: BP 138/70; PULSE 78
--- NOTE | 2016-11-24 11:37 | OP ---
DATE OF OPERATION: 11/23/2016 PREOPERATIVE DIAGNOSIS: Internal derangement of the right knee. POSTOPERATIVE DIAGNOSIS: Internal derangement of the right knee. PROCEDURE: Arthroscopy, right knee, with chondroplasty of the medial femoral condyle. SURGICAL ATTENDING: James St MD ANESTHESIA: General LMA. CLOSURE: 4-0 nylon. COMPLICATIONS: None. CONDITION: To recovery room in stable condition. DESCRIPTION OF OPERATIVE PROCEDURE: Patient was taken to the operating room on November 23, 2016. General anesthesia was administered by the anesthesiologist. Right lower extremity was prepped and draped in the usual sterile fashion. Superolateral, mediolateral, infrapatellar portal sites were infiltrated with 1% Xylocaine with epinephrine. Superolateral portal was made with a 15 blade followed by blunt trocar. The knee was aspirated and inflated with cocktail 10 mL of 1% Xylocaine, 10 mL of 0.5% Marcaine, and 20 mL of arthroscopic saline. Medial and lateral infrapatellar portals were then made with the 15 blade followed by a blunt trocar. The scope was placed in the lateral suprapatellar portal and up into suprapatellar pouch. Pouch was visualized to be clean. The medial and lateral gutters were visualized to be clean. The undersurface of the patella and trochlea were found to be intact. With valgus stress underneath the medial compartment, there was a dime-sized grade 4 lesion of the medial femoral condyle at around 30 degrees of flexion. Its bed was debrided and cleaned with the shaver giving some bleeding bone to that region. The rest of the medial femoral condyle and medial tibial plateau was found to be intact. The medial meniscus was probed and found to be intact. At 90 degrees, the ACL was visualized and found to be intact. In the figure 4 position, lateral compartment was entered. Lateral meniscus was visualized and found to be intact. The lateral femoral condyle was found to be intact as was the lateral tibial plateau. The knee was irrigated with copious amounts of irrigation. The portals closed after using 4-0 nylon. Prior to closure, 20 mL of 0.5% Marcaine was diffused through the outflow portal prior to pulling the trocar. Sterile pressure dressing was placed over the knee. Patient awakened from anesthesia and transferred to recovery in stable condition. No complications. Estimated blood loss negligible. Jasson [id number]
--- NOTE | 2016-11-24 12:33 | PATH ---
Surgical Pathology Report Patient Name: DICK AVILA [facility]. Rec. #: [id number] /Age/Gender: 1960 (Age: 56) / F Account: [id number] Location: [facility] Taken: 11/23/2016 Received: 11/23/2016 Reported: 11/24/2016 Physicians: James St M.D. Specimen(s) Received SHAVINGS RIGHT KNEE Clinical History Right knee tear Final Diagnosis SOFT TISSUE, RIGHT KNEE, ARTHROSCOPIC SHAVINGS: SYNOVIUM AND FIBROCARTILAGE WITH MYXOHYALINE DEGENERATION. Electronically Signed Nikolay Trammell M.D. Gross Description Received in formalin, labeled "right knee shavings" is a 2.8 x 2.0 x 0.3 cm aggregate of harry-yellow soft tissue fragments. A telemarketing sales representative portion is submitted in one cassette. /11/23/201611/23/2016
== END 2016-11-23 15:30 | disposition home or self-care (01) ==
LOC: JASU-SURG 07:42
PROVIDERS: ATTEND Orthopaedic Surgery
PROC: 0SBC4ZZ Excision of Right Knee Joint, Percutaneous Endoscopic Approach (ICD-10-PCS; principal; 2016-11-23 09:30)
DX: M23.91 Unspecified internal derangement of right knee (principal)
CPT/HCPCS: 88304-TC; 94760; 97116-GP

== ENCOUNTER 2016-12-10 20:42 | Emergency (ER) | payer OTHER, BC ==
[2016-12-10 21:18] VITALS: BP 143/86; PULSE 117; TEMP 98.8; BMI 30.1
[2016-12-10] MEDS ORDERED: SODIUM CHLORIDE 500 ML IV STA (21:39)
[2016-12-10] MEDS ORDERED: methylPREDNISolone NA SUCC 125 MG/2 ML VIAL IVPB ONE (21:39)
[2016-12-10] MEDS: ALBUTEROL SO4 2.5/IPRATROPIUM 0.5 INH SOL 3 ML VIAL.NEB. NEB SCH ×3 (21:50→22:44)
[2016-12-10] MEDS ORDERED: methylPREDNISolone NA SUCC 125 MG/2 ML VIAL ONE (21:51)
[2016-12-10 22:44] LABS: BASOPHIL 0.4 % (0-2.0); EOSINOPHIL 0.8 % (0-4.5); MCH 29.5 pg (25.7-33.7); MCHC 33.5 g/dl (32.0-36.0); NEUTROPHILS 75.2 % (42.8-82.8); PLATELET COUNT 316 K/MM3 (134-434); RDW 15.9 % (11.6-15.6); WHITE BLOOD COUNT 12.7 K/mm3 (4.0-10.0)
--- NOTE | 2016-12-10 22:54 | PDOC ---
History of Present Illness - General Chief Complaint: Wheezing Stated Complaint: WHEEZING/FEVER/BODY ACHE Time Seen by Provider: 12/10/16 21:19 History Source: Patient Exam Limitations: No Limitations - History of Present Illness Initial Comments: 12/10/16 22:50 56yo Female patient w/PmHx: COPD presents to ED c/o wheezing (began yesterday), body aches, chills, fever (100.9)- took Tylenol @ 7pm. Patient states she has been taking her nebulizer every 4-5 hours since yesterday with no relief. Denies CP, Abd pain, Back pain, n/v/d, or any other complaints at this time. Timing/Duration: reports: yesterday Severity: reports: moderate Possible Cause: Yes: frequent episodes Modifying Factors: improves with: albuterol nebulizer Associated Symptoms: reports: fever/chills, wheezing Past History - Travel Traveled outside of the country in the last 30 days: No Close contact w/someone who was outside of country & ill: No - Past Medical History Allergies/Adverse Reactions: Allergies Allergy/AdvReac Type Severity Reaction Status Date / Time Penicillins Allergy Hives Verified 12/10/16 21:17 Sulfa (Sulfonamide Allergy Hives Verified 12/10/16 21:17 Antibiotics) [Sulfa(Sulfonamide Antibiotics)] Home Medications: Ambulatory Orders Atorvastatin Ca [Lipitor] 10 mg PO HS 06/24/15 Roflumilast [Daliresp] 500 mcg PO DAILY 06/24/15 Tiotropium [place] [Spiriva] 1 inh PO DAILY 06/24/15 Aspirin [ASA -] 81 mg PO DAILY 03/21/16 Cholecalciferol (Vitamin D3) [Vitamin D -] 400 unit PO DAILY tablet 03/28/16 Cyanocobalamin [Vitamin B12 -] 1,000 mcg PO DAILY tablet 03/28/16 Diltiazem Cd [Cardizem Cd -] 180 mg PO DAILY #60 cap.cd.24h 06/08/16 Amitriptyline HCl [Elavil -] 25 mg PO HS 09/23/16 Pantoprazole Sodium [Protonix -] 40 mg PO DAILY tablet.ec 09/26/16 Clonazepam [Klonopin -] 0.5 mg PO PRN PRN 11/23/16 [place]-3 Fatty Acids [Fish Oil] 300 mg PO DAILY 11/23/16 Oxycodone HCl/Acetaminophen [Percocet 5-325 mg Tablet -] 1 - 2 tab PO Q6H #50 tab MDD 8 11/23/16 Salmeterol/Fluticasone [Advair 500Mcg/50Mcg -] 1 inh PO BID 11/23/16 Albuterol Sulfate Inhaler - [Ventolin Hfa Inhaler -] 1 - 2 inh PO Q4H PRN #1 inhaler 12/11/16 Azithromycin [Zithromax -] 250 mg PO DAILY #4 tablet 12/11/16 Prednisone [Deltasone -] 10 mg PO DAILY #21 tablet 12/11/16 Anemia: No Asthma: Yes Cancer: No Cardiac Disorders: Yes (TACHY) CVA: No COPD: Yes CHF: No Dementia: No Diabetes: (BORDERLINE) GI Disorders: Yes (GERD) Disorders: No HTN: Yes Hypercholesterolemia: Yes Liver Disease: No Suicide Attempt (Hx): No Seizures: No Thyroid Disease: Yes (NODULES) - Surgical History Abdominal Surgery: Yes (POLYP REMOVED FROM UTERUS 09/06/13) Appendectomy: No Cardiac Surgery: No Cholecystectomy: No GI Surgery: Yes (umbilical hernia/wound vac) Lung Surgery: No Neurologic Surgery: No Orthopedic Surgery: Yes (BUNION REMOVAL RT FOOT 2013) - Immunization History Immunization Up to Date: Yes - Psycho/Social/Smoking Cessation Hx Anxiety: No Suicidal Ideation: No Smoking Status: Yes Smoking History: Never smoked Have you smoked in the past 12 months: No Number of Cigarettes Smoked Daily: 0 If you are a former smoker, when did you quit?: 05/17/2012 Information on smoking cessation initiated: No 'Breaking Loose' booklet given: 10/28/13 Hx Alcohol Use: No Drug/Substance Use Hx: No Substance Use Type: None Hx Substance Use Treatment: No Respiratory Specific PMHX - Complaint Specific PMHX Angina: No Bronchitis: Yes Pneumonia: No Pulmonary Embolus: No TB (Tuberculosis): No Review of Systems - Review of Systems Able to Perform ROS?: Yes Is the patient limited Korean proficient: No Constitutional: Yes: Chills, Fever HEENTM: No: Nose Congestion Respiratory: Yes: Wheezing. No: Cough Cardiac (ROS): No: Chest Pain, Palpitations, Syncope, Chest Tightness ABD/GI: No: Diarrhea, Nausea, Vomiting Musculoskeletal: No: Back Pain All Other Systems: Reviewed and Negative *Physical Exam - Vital Signs Last Vital Signs Temp Pulse Resp BP Pulse Ox 98.8 F 117 H 20 143/86 95 12/10/16 21:17 12/10/16 21:17 12/10/16 21:17 12/10/16 21:17 12/10/16 21:17 - Physical Exam General Appearance: Yes: Nourished, Appropriately Dressed, Mild Distress. No: Apparent Distress, Moderate Distress, Severe Distress HEENT: positive: EOMI, EMMY, Normal ENT Inspection, Normal Voice, Symmetrical, TMs Normal, Pharynx Normal. negative: Pharyngeal Erythema, Tonsillar Exudate, Tonsillar Erythema, Nasal Congestion, Rhinorrhea, TM Bulging, TM Dull, TM Erythema Neck: positive: Trachea midline, Supple. negative: Stridor, Lymphadenopathy (R) , Lymphadenopathy (L) Respiratory/Chest: positive: Wheezing. negative: Respiratory Distress, Accessory Muscle Use, Labored Respiration, Rapid RR Cardiovascular: positive: Regular Rhythm, Regular Rate Gastrointestinal/Abdominal: positive: Normal Bowel Sounds, Soft. negative: Distended, Guarding, Rebound, Tenderness Musculoskeletal: positive: Normal Inspection. negative: CVA Tenderness Extremity: positive: Normal Capillary Refill, Normal Inspection, Normal Range of Motion. negative: Swelling, Calf Tenderness, Erythema, Inflammation Integumentary: positive: Normal Color, Dry, Warm Neurologic: positive: day care center director II-XII NML intact, Fully Oriented, Alert, Normal Mood/ Affect, Normal Response, Motor Strength 5/5 ED Treatment Course - LABORATORY CBC & Chemistry Diagram: 12/10/16 22:20 12/10/16 22:20 - ADDITIONAL ORDERS Additional order review: 12/10/16 22:20 RBC 4.02 MCV 88.0 MCHC 33.5 RDW 15.9 H D MPV 7.0 L Neutrophils % 75.2 D Lymphocytes % 16.3 D Monocytes % 7.3 Eosinophils % 0.8 D Basophils % 0.4 - RADIOLOGY Radiology Studies Ordered: Category Date Time Status CHEST PA & LAT [RAD] Stat Radiology 12/10/16 21:39 Ordered - Medications Given in the ED: ED Medications Discontinued Medications Generic Name Dose Route Start Last Admin Trade Name Freq PRN Reason Stop Dose Admin Albuterol/Ipratropium 1 amp 12/10/16 21:45 12/10/16 22:44 Duoneb - NEB 12/10/16 22:31 1 amp Q15M SANDEEP Administration Sodium Chloride 500 mls @ 500 mls/hr 12/10/16 21:39 12/10/16 22:25 Normal Saline - IV 12/10/16 22:38 500 mls/hr ASDIR STA Administration Methylprednisolone Sodium Succinate 125 mg 12/10/16 21:39 12/10/16 22:25 Solu-Medrol - IVPB 12/10/16 21:40 125 mg ONCE ONE Administration Progress Note - Progress Note Progress Note: 0037- PATIENT REFUSING ANYMORE DUO NEB. AWAITING X-RAY. 0130- PATIENT STATES ZITHROMAX IV BURN AND HURTS. IVF STOPPED. DISCUSSED TREATMENT PLAN AND RESULTS WITH PATIENT. *DC/Admit/Observation/Transfer Diagnosis at time of Disposition: Exacerbation of asthma - Discharge Dispostion Disposition: HOME Condition at time of disposition: Improved Admit: No - Prescriptions Prescriptions: Prednisone [Deltasone -] 10 mg PO DAILY #21 tablet Albuterol Sulfate Inhaler - [Ventolin Hfa Inhaler -] 1 - 2 inh PO Q4H PRN #1 inhaler PRN Reason: DIFFICULTY BREATHING Azithromycin [Zithromax -] 250 mg PO DAILY #4 tablet - Patient Instructions Printed Discharge Instructions: DI for Asthma -- Adult Additional Instructions: FOLLOW UP WITH YOUR PRIMARY CARE PROVIDER THIS WEEK. CALL TO SCHEDULE APPOINTMENT. TAKE MEDICATIONS PRESCRIBED. CONTINUE NEBULIZER TREATMENTS AT HOME EVERY 4 HOURS AND NEEDED FOR SYMPTOM MANAGEMENT. RETURN IF SYMPTOMS WORSEN OR ANY CONCERNS FOR FURTHER EVALUATION. Print Language: POLISH
[2016-12-10 23:05] LABS: CALCIUM 9.1 mg/dL (8.5-10.1); COCKROFT - GAULT 109.2335; CREATININE 0.7 mg/dL (0.55-1.02)
[2016-12-10] MEDS ORDERED: AZITHROMYCIN IVPB 500 MG in DEXTROSE 5%-WATER - 250 ML IVPB ONE (23:49)
--- NOTE | 2016-12-11 00:27 | PDOC ---
*Physical Exam - Vital Signs Last Vital Signs Temp Pulse Resp BP Pulse Ox 98.8 F 117 H 20 143/86 95 12/10/16 21:17 12/10/16 21:17 12/10/16 21:17 12/10/16 21:17 12/10/16 21:17 ED Treatment Course - LABORATORY CBC & Chemistry Diagram: 12/10/16 22:20 12/10/16 22:20 - ADDITIONAL ORDERS Additional order review: Laboratory Results 12/10/16 22:20 Sodium 141 Potassium 3.6 Chloride 107 Carbon Dioxide 23 Anion Gap 11 BUN 8 D Creatinine 0.7 Random Glucose 110 H Calcium 9.1 12/10/16 22:40 Influenza Types A,B Antigen (ROBERT) - Final Nasopharyngeal Swab - Final 12/10/16 22:20 RBC 4.02 MCV 88.0 MCHC 33.5 RDW 15.9 H D MPV 7.0 L Neutrophils % 75.2 D Lymphocytes % 16.3 D Monocytes % 7.3 Eosinophils % 0.8 D Basophils % 0.4 - Medications Given in the ED: ED Medications Discontinued Medications Generic Name Dose Route Start Last Admin Trade Name Francheska PRN Reason Stop Dose Admin Albuterol/Ipratropium 1 amp 12/10/16 21:45 12/10/16 22:44 Duoneb - NEB 12/10/16 22:31 1 amp Q15M SANDEEP Administration Sodium Chloride 500 mls @ 500 mls/hr 12/10/16 21:39 12/10/16 22:25 Normal Saline - IV 12/10/16 22:38 500 mls/hr ASDIR STA Administration Methylprednisolone Sodium Succinate 125 mg 12/10/16 21:39 12/10/16 22:25 Solu-Medrol - IVPB 12/10/16 21:40 125 mg ONCE ONE Administration Medical Decision Making - Medical Decision Making 12/14/16 07:40 56 yo F h/o COPD presenting to ED w/wheezing, body aches, chills, fever (100.9) She has been taking her nebulizer every 4-5 hours since yesterday with no relief. Denies Chest pain Pt seen by Midlevel Provider under my direct supervision Pt interviewed and examined Ancillary studies reviewed I agree with plan as outlined by Midlevel Provider *DC/Admit/Observation/Transfer Diagnosis at time of Disposition: Exacerbation of asthma - Discharge Dispostion Disposition: HOME - Prescriptions Prescriptions: Prednisone [Deltasone -] 10 mg PO DAILY #21 tablet Albuterol Sulfate Inhaler - [Ventolin Hfa Inhaler -] 1 - 2 inh PO Q4H PRN #1 inhaler PRN Reason: DIFFICULTY BREATHING Azithromycin [Zithromax -] 250 mg PO DAILY #4 tablet - Referrals Referrals: Cristal Ludwig MD [Primary Care Provider] - - Patient Instructions Printed Discharge Instructions: DI for Asthma -- Adult Additional Instructions: FOLLOW UP WITH YOUR PRIMARY CARE PROVIDER THIS WEEK. CALL TO SCHEDULE APPOINTMENT. TAKE MEDICATIONS PRESCRIBED. CONTINUE NEBULIZER TREATMENTS AT HOME EVERY 4 HOURS AND NEEDED FOR SYMPTOM MANAGEMENT. RETURN IF SYMPTOMS WORSEN OR ANY CONCERNS FOR FURTHER EVALUATION. Print Language: AZERBAIJANI
[2016-12-11] MEDS ORDERED: AZITHROMYCIN IVPB 250 ML IVPB ONE (00:28)
[2016-12-11] MEDS: ALBUTEROL SO4 2.5/IPRATROPIUM 0.5 INH SOL 3 ML VIAL.NEB. NEB SCH (01:59)
--- NOTE | 2016-12-15 10:58 | PDOC ---
Patient Follow-up (Call Back) - Post ED Follow - Up Condition at time of discharge: Good Disposition at time of original discharge: HOME Reason for Call Back: Abnwl. Lab (Patient had a preliminary positive blood culture which showed gram-positive Bicillin I. Patient was discharged home with azithromycin and prednisone secondary to bronchitis. I called patient at home and states the complete antibiotics and is feeling back to baseline and denies any fever, chills, weakness, or difficulty breathing. Patient is followed by Dr. Cristal Ludwig but I did mention to her that if she develops any symptoms to come to the ER and not follow-up with Dr. Cristal Ludwig.)
== END 2016-12-11 02:26 | disposition home or self-care (01) ==
LOC: JER 20:42
PROC: 3E0F7GC Introduction of Other Therapeutic Substance into Respiratory Tract, Via Natural or Artificial Opening (ICD-10-PCS; principal; 2016-12-10)
PROC: 3E03329 Introduction of Other Anti-infective into Peripheral Vein, Percutaneous Approach (ICD-10-PCS; 2016-12-10)
PROC: 3E0333Z Introduction of Anti-inflammatory into Peripheral Vein, Percutaneous Approach (ICD-10-PCS; 2016-12-10)
DX: J45.901 Unspecified asthma with (acute) exacerbation (principal); E11.9 Type 2 diabetes mellitus without complications; E04.1 Nontoxic single thyroid nodule
CPT/HCPCS: 36415; 71020-TC; 80048; 85025; 87040; 87076; 87804; 94640; 96365; 96375; 99282-25

== ENCOUNTER 2016-12-17 09:36 | Inpatient (IN) | payer OTHER, BC ==
[2016-12-17 09:42] VITALS: BMI 30.1
--- NOTE | 2016-12-17 09:55 | PDOC ---
History of Present Illness - General History Source: Patient Exam Limitations: No Limitations - History of Present Illness Initial Comments: 12/17/16 09:59 The patient is a 56-year-old woman with a significant past medical history of hypertension, hypercholesterolemia, chronic obstructive pulmonary disorder, gastroesophageal reflux disease and thyroid disease, who presents to the emergency department via walk-in for further evaluation of progressively worsening shortness of breath for the past week. Upon ED arrival patient was noted to have an oral temperature of 98.0, oxygen saturation on room air of 96% , and respiratory rate of 24. She states that she was in this ED, last week, ( 12/11) with similar symptoms. She was found to have a COPD exacerbation. At that time, she was found to have a fever, (101.9) thus blood cultures were done. Blood culture was positive for propionibacterium acnes. She states that her symptoms have been persistent, despite compliance with tapering Prednisone, antibiotics and nebulizer treatments. Last nebulizer treatment was approximately 20 minutes prior to ER arrival. No significant relief. Patient also reports endorsing a dry intermittent cough. She reports that her current symptoms feel like her bronchitis. She denies chest pain, headache,dizziness, lightheadedness, fever, chills,back pain. She denies abdominal pain,nausea, vomiting, diarrhea, hematochezia, melena. She also admits that she is exposed to second hand smoking, as her son lives with her and smokes around the house. she also admits that she has been spraying a lot of air freshener around the house do to the smell. Off note, she reports undergoing knee surgery on 11/23/2016. She denies lower extremity pain/swelling and/or recent prolonged immobilization. Not on any blood thinners. Allergies: Penicillin. Sulfonamide (Hives) Past surgical History: Recent knee surgery (11/23/2016) Uterus polyp removal. Umbilical hernia repair. Right foot bunion removal. Social History: Former smoker (quit 2011). Exposed by second hand smoking by her son. No ETOH and recreational drug use. Primary Care Physician: Dr. Cristal Ludwig [phone] <Kami Adame - Last Filed: 12/17/16 14:27> <Jodie Youngblood - Last Filed: 12/17/16 14:34> - General Chief Complaint: Respiratory Stated Complaint: DIFF BREATHING Time Seen by Provider: 12/17/16 09:55 Past History <Kami Adame - Last Filed: 12/17/16 14:27> - Past Medical History Anemia: No Asthma: Yes Cancer: No Cardiac Disorders: Yes (TACHY) CVA: No COPD: Yes CHF: No Dementia: No Diabetes: (BORDERLINE) GI Disorders: Yes (GERD) Disorders: No HTN: Yes Hypercholesterolemia: Yes Liver Disease: No Suicide Attempt (Hx): No Seizures: No Thyroid Disease: Yes (NODULES) - Surgical History Abdominal Surgery: Yes (POLYP REMOVED FROM UTERUS 09/06/13) Appendectomy: No Cardiac Surgery: No Cholecystectomy: No GI Surgery: Yes (umbilical hernia/wound vac) Lung Surgery: No Neurologic Surgery: No Orthopedic Surgery: Yes (BUNION REMOVAL RT FOOT 2013) - Immunization History Immunization Up to Date: Yes - Psycho/Social/Smoking Cessation Hx Anxiety: No Suicidal Ideation: No Smoking Status: Yes Smoking History: Former smoker Have you smoked in the past 12 months: No Number of Cigarettes Smoked Daily: 0 If you are a former smoker, when did you quit?: 2011 Information on smoking cessation initiated: No 'Breaking Loose' booklet given: 10/28/13 Hx Alcohol Use: No Drug/Substance Use Hx: No Substance Use Type: None Hx Substance Use Treatment: No <Jodie Youngblood - Last Filed: 12/17/16 14:34> - Past Medical History Allergies/Adverse Reactions: Allergies Allergy/AdvReac Type Severity Reaction Status Date / Time Penicillins Allergy Hives Verified 12/17/16 09:38 Sulfa (Sulfonamide Allergy Hives Verified 12/17/16 09:38 Antibiotics) [Sulfa(Sulfonamide Antibiotics)] Home Medications: Ambulatory Orders Atorvastatin Ca [Lipitor] 10 mg PO HS 06/24/15 Roflumilast [Daliresp] 500 mcg PO DAILY 06/24/15 Tiotropium [place] [Spiriva] 1 inh PO DAILY 06/24/15 Aspirin [ASA -] 81 mg PO DAILY 03/21/16 Cholecalciferol (Vitamin D3) [Vitamin D -] 400 unit PO DAILY tablet 03/28/16 Cyanocobalamin [Vitamin B12 -] 1,000 mcg PO DAILY tablet 03/28/16 Diltiazem Cd [Cardizem Cd -] 180 mg PO DAILY #60 cap.cd.24h 06/08/16 Amitriptyline HCl [Elavil -] 25 mg PO HS 09/23/16 Pantoprazole Sodium [Protonix -] 40 mg PO DAILY tablet.ec 09/26/16 Clonazepam [Klonopin -] 0.5 mg PO PRN PRN 11/23/16 [place]-3 Fatty Acids [Fish Oil] 300 mg PO DAILY 11/23/16 Salmeterol/Fluticasone [Advair 500Mcg/50Mcg -] 1 inh PO BID 11/23/16 Albuterol Sulfate Inhaler - [Ventolin Hfa Inhaler -] 1 - 2 inh PO Q4H PRN #1 inhaler 12/11/16 Review of Systems - Review of Systems Able to Perform ROS?: Yes Comments:: 12/17/16 10:00 Constitutional - Pt denies Fever, Chills, weakness, HEENT: denies vision changes, sore throat Respiratory: +Shortness of breath. +Cough. Denies hemoptysis Cardiac: denies chest pain, palpitations, light headedness, leg swelling Abd/GI: denies abd pain, nausea, vomiting, blood per rectum, melena, diarrhea : denies dysuria, frequency, discharge Musculoskeletal - denies back pain, joint swelling skin - denies bruising, erythema, rash neurological: denies headache, numbness, focal weakness, tingling, ataxia, weakness hematologic: denies anemia, easy bruising, easy bleeding <Kami Adame - Last Filed: 12/17/16 14:27> *Physical Exam - Vital Signs Last Vital Signs Temp Pulse Resp BP Pulse Ox 98.0 F 107 H 24 104/81 96 12/17/16 09:38 12/17/16 09:38 12/17/16 09:38 12/17/16 09:38 12/17/16 09:38 - Physical Exam Comments: 12/17/16 10:00 GENERAL: The patient is awake, alert, and fully oriented, Nontoxic - in no acute distress. HEAD: Normocephalic, atraumatic. EYES: extraocular movements intact, sclera anicteric, conjunctiva clear. ENT: Normal voice, moist mucous membranes. NECK: Normal range of motion, supple without lymphadenopathy, JVD, or masses. LUNGS: Breath sounds equal, clear to auscultation bilaterally. No wheezes, no crackles, no rales. HEART: Regular rate and rhythm, normal S1 and S2 without murmur, rub or gallop. ABDOMEN: Soft, nontender, normoactive bowel sounds. No guarding, no rebound. No masses. EXTREMITIES: Normal range of motion, no edema. No clubbing or cyanosis. No cords , erythema, or tenderness. NEUROLOGICAL: Fully Oriented, Alert, Normal Mood/Affect, Motor Strength 5/5. No facial assymetry, Normal speech SKIN: Warm, Dry, normal turgor, no rashes or lesions noted. <Kami Adame - Last Filed: 12/17/16 14:27> - Vital Signs Last Vital Signs Temp Pulse Resp BP Pulse Ox 98.0 F 107 H 24 104/81 96 12/17/16 09:38 12/17/16 09:38 12/17/16 09:38 12/17/16 09:38 12/17/16 09:38 <Jodie Youngblood - Last Filed: 12/17/16 14:34> Heart Score/ECG Review #1 12/17/16 10:38 Reviewed and interpreted by Dr. Jodie Youngblood IMPRESSION: Normal sinus rhythm at 88 bpm. LVH. Normal axis. No changed from prior EKG obtained from 09/16/2016. <Kami Adame - Last Filed: 12/17/16 14:27> ED Treatment Course - LABORATORY CBC & Chemistry Diagram: 12/17/16 10:36 12/17/16 10:36 - RADIOLOGY Radiograph Interpretation: 12/17/16 12:26 EXAM: RAD/CHEST PA LAT IMPRESSION: Since 12/10/2016 atelectasis and pleural reaction at the bases has resolved. There is no sign of an acute process. If symptoms persist, further imaging may be of help. EXAM: CT/CHEST CT WITH CONTRAST Chest CT (with contrast) IMPRESSION: No pulmonary embolism is identified. As noted on prior CT studies including 01/04/2016 centrilobular emphysema is noted which is at least moderate. No infiltrate or pleural effusion is seen. There is no definite cardiac enlargement. No pericardial effusion is noted. There is no discrete lymphadenopathy. No aortic aneurysm is identified. The visualized osseous structures demonstrate no obvious CT evidence of acute pathology or neoplastic disease. <Kami Adame - Last Filed: 12/17/16 14:27> - LABORATORY CBC & Chemistry Diagram: 12/17/16 10:36 12/17/16 10:36 <Jodie Youngblood - Last Filed: 12/17/16 14:34> Medical Decision Making - Medical Decision Making 12/17/16 12:[address] Cristal Ludwig. 12/17/16 13:[address] Cristal Ludwig. Case was discussed. 12/17/16 14:[address] Perkins 12/17/16 14:[address] Perkins. Case was discussed. <Kami Adame - Last Filed: 12/17/16 14:27> - Medical Decision Making 12/17/16 11:10 I, Dr. Jodie Youngblood, attest that the scribes documentation that appears above has been prepared under my direction and personally reviewed by me. I confirmed that the note above accurately reflects all work, treatment, procedures, and medical decision-making performed by me. 12/17/16 14:27 Pt with elevated wbc, unclear if elevated wbc is from recent streroid usage or recent positive blood cx. CT done today does not show a Pulmonary embolism or pneumonia. Case discussed with Dr Perkins of ID agrees with one dose of vancomycin , and recommends echo of her heart. Case discussed with pt's PCP who agrees with admission to [facility], pt agrees with admission to hospital. Repeat blood cultues are pending. 12/17/16 14:32 Pt is currently wheezing will give combivent treatment and reevaluate, pt is not in any acute respiratory distress at present. 12/17/16 14:34 <Jodie Youngblood - Last Filed: 12/17/16 14:34> *DC/Admit/Observation/Transfer - Attestations Scribe Attestion: 12/17/16 10:00 Documentation prepared by Kami Adame, acting as medical research scientist for Jodie Youngblood DO. <Kami Adame - Last Filed: 12/17/16 14:27> - Discharge Dispostion Admit: Yes <Jodie Youngblood - Last Filed: 12/17/16 14:34> Diagnosis at time of Disposition: Shortness of breath - Discharge Dispostion Condition at time of disposition: Stable - Referrals Referrals: Cristal Ludwig MD [Primary Care Provider] -
[2016-12-17] MEDS ORDERED: ALBUTEROL SO4 2.5/IPRATROPIUM 0.5 INH SOL 3 ML VIAL.NEB. NEB ONE ×4 (10:21→14:33)
[2016-12-17 10:44] LABS: BASOPHIL 0.3 % (0-2.0); EOSINOPHIL 0.5 % (0-4.5); MCH 28.7 pg (25.7-33.7); MCHC 32.4 g/dl (32.0-36.0); MEAN CELL VOLUME 88.6 fl (80-96); MEAN PLT VOLUME 6.9 fl (7.5-11.1); NEUTROPHILS 73.8 % (42.8-82.8); PLATELET COUNT 379 K/MM3 (134-434); RDW 16.1 % (11.6-15.6); WHITE BLOOD COUNT 18.9 K/mm3 (4.0-10.0)
[2016-12-17 11:06] LABS: ALBUMIN 3.7 g/dl (3.4-5.0); ALK PHOS 92 U/L (45-117); ANION GAP 13 (8-16); BILIRUBIN,TOTAL 0.8 mg/dL (0.2-1.0); CALCIUM 9.6 mg/dL (8.5-10.1); CO2 27 mmol/L (21-32); COCKROFT - GAULT 95.5825; CREATININE 0.8 mg/dL (0.55-1.02); GLUCOSE,RANDOM 108 mg/dL (74-106); SGOT/AST 7 U/L (15-37); SGPT/ALT 18 U/L (12-78); TOT PROT 6.6 g/dl (6.4-8.2)
[2016-12-17] MEDS ORDERED: POTASSIUM CHLORIDE TABS 20 MEQ TABLET.ER (FP) PO ONE ×2 (11:14→11:21)
[2016-12-17] MEDS ORDERED: clonazePAM 0.5 MG TABLET PO PRN (13:43)
[2016-12-17] MEDS ORDERED: ALBUTEROL SO4 6.7 GM HFA INHALER IH PRN (13:43)
[2016-12-17] MEDS ORDERED: ALBUTEROL SO4 0.083% IH SOL 2.5 MG/3 ML VIAL.NEB. NEB PRN (13:45)
[2016-12-17] MEDS ORDERED: VANCOMYCIN 1,000 MG in DEXTROSE 5%-WATER - 250 ML IVPB ONE (14:26)
[2016-12-17] MEDS ORDERED: VANCOMYCIN 1 GRAM (PRE-DOCKED) 250 ML IVPB ONE (14:31)
[2016-12-17] MEDS: ACETAMINOPHEN 325 MG TABLET (FP) PO PRN (17:34)
[2016-12-17] MEDS: oxyCODONE HCL 5 MG TABLET PO PRN (17:35)
[2016-12-17] MEDS: BUDESONIDE/FORMETEROL FUMARATE 160/4.5 mcg INHALER IH SCH (22:33)
[2016-12-17] MEDS: ATORVASTATIN CA 10 MG TABLET (FP) PO SCH (22:45)
[2016-12-17] MEDS: AMITRIPTYLINE HCL 25 MG TABLET (FP) PO SCH (22:45)
[2016-12-18] MEDS: ACETAMINOPHEN 325 MG TABLET (FP) PO PRN ×2 (05:27→11:10)
[2016-12-18] MEDS: oxyCODONE HCL 5 MG TABLET PO PRN ×2 (05:28→11:09)
[2016-12-18 08:00] LABS: BASOPHIL 0.4 % (0-2.0); EOSINOPHIL 1.8 % (0-4.5); MCH 29.6 pg (25.7-33.7); MCHC 33.3 g/dl (32.0-36.0); MEAN PLT VOLUME 7.1 fl (7.5-11.1); NEUTROPHILS 54.8 % (42.8-82.8); PLATELET COUNT 335 K/MM3 (134-434); RDW 15.7 % (11.6-15.6)
[2016-12-18 08:22] LABS: CALCIUM 8.3 mg/dL (8.5-10.1)
[2016-12-18 08:25] LABS: COCKROFT - GAULT 127.4405; CREATININE 0.6 mg/dL (0.55-1.02)
--- NOTE | 2016-12-18 09:02 | HP ---
Admitting History and Physical - Primary Care Physician PCP: Cristal Ludwig - Admission Chief Complaint: sob History of Present Illness: ER HISTORY - History of Present Illness Initial Comments: 12/17/16 09:59 The patient is a 56-year-old woman with a significant past medical history of hypertension, hypercholesterolemia, chronic obstructive pulmonary disorder, gastroesophageal reflux disease and thyroid disease, who presents to the emergency department via walk-in for further evaluation of progressively worsening shortness of breath for the past week. Upon ED arrival patient was noted to have an oral temperature of 98.0, oxygen saturation on room air of 96% , and respiratory rate of 24. She states that she was in this ED, last week, ( 12/11) with similar symptoms. She was found to have a COPD exacerbation. At that time, she was found to have a fever, (101.9) thus blood cultures were done. Blood culture was positive for propionibacterium acnes. She states that her symptoms have been persistent, despite compliance with tapering Prednisone, antibiotics and nebulizer treatments. Last nebulizer treatment was approximately 20 minutes prior to ER arrival. No significant relief. Patient also reports endorsing a dry intermittent cough. She reports that her current symptoms feel like her bronchitis. She denies chest pain, headache,dizziness, lightheadedness, fever, chills,back pain. She denies abdominal pain,nausea, vomiting, diarrhea, hematochezia, melena. She also admits that she is exposed to second hand smoking, as her son lives with her and smokes around the house. she also admits that she has been spraying a lot of air freshener around the house do to the smell. Off note, she reports undergoing knee surgery on 11/23/2016. She denies lower extremity pain/swelling and/or recent prolonged immobilization. Not on any blood thinners. Pt examined by me on the floors c/o pain in right knee. Wheezing persisting, she completed prednisone taper on Monday and still was wheezing and felt SOB. Was called back to ER for positive blood cultures. Denies any coughing Still feeling SOB today received VAnco in ER History Source: Patient Limitations to Obtaining History: No Limitations - Past Medical History Cardiovascular: Yes: HTN Pulmonary: Yes: COPD Gastrointestinal: Yes: Other (HERNIA REPAIR WITH COMPLICATIONS AND POST OP SBO) ...LMP: 08/04/13 ...: No Heme/Onc: Yes: B12 Deficiency Psych: Yes: Anxiety - Past Surgical History Past Surgical History: Yes: Hernia Repair - Smoking History Smoking history: Former smoker Have you smoked in the past 12 months: No Aproximately how many cigarettes per day: 0 If you are a former smoker, when did you quit?: 2011 - Alcohol/Substance Use Hx Alcohol Use: No Home Medications - Allergies Allergies/Adverse Reactions: Allergies Allergy/AdvReac Type Severity Reaction Status Date / Time Penicillins Allergy Hives Verified 12/17/16 09:38 Sulfa (Sulfonamide Allergy Hives Verified 12/17/16 09:38 Antibiotics) [Sulfa(Sulfonamide Antibiotics)] - Home Medications Home Medications: Ambulatory Orders Atorvastatin Ca [Lipitor] 10 mg PO HS 06/24/15 Roflumilast [Daliresp] 500 mcg PO DAILY 06/24/15 Tiotropium [place] [Spiriva] 1 inh PO DAILY 06/24/15 Aspirin [ASA -] 81 mg PO DAILY 03/21/16 Cholecalciferol (Vitamin D3) [Vitamin D -] 400 unit PO DAILY tablet 03/28/16 Cyanocobalamin [Vitamin B12 -] 1,000 mcg PO DAILY tablet 03/28/16 Diltiazem Cd [Cardizem Cd -] 180 mg PO DAILY #60 cap.cd.24h 06/08/16 Amitriptyline HCl [Elavil -] 25 mg PO HS 09/23/16 Pantoprazole Sodium [Protonix -] 40 mg PO DAILY tablet.ec 09/26/16 Clonazepam [Klonopin -] 0.5 mg PO PRN PRN 11/23/16 [place]-3 Fatty Acids [Fish Oil] 300 mg PO DAILY 11/23/16 Salmeterol/Fluticasone [Advair 500Mcg/50Mcg -] 1 inh PO BID 11/23/16 Albuterol Sulfate Inhaler - [Ventolin Hfa Inhaler -] 1 - 2 inh PO Q4H PRN #1 inhaler 12/11/16 Family Disease History - Family Disease History Family Disease History: CA: Father (Lung CA), Other: Mother (HTN) Review of Systems - Review of Systems Constitutional: reports: Fever, Weakness. denies: Chills Cardiovascular: reports: Shortness of Breath. denies: Palpitations Respiratory: reports: Cough, SOB, Wheezing. denies: Hemoptysis, PND Musculoskeletal: reports: Joint Pain, Joint Swelling Physical Examination Vital Signs: Vital Signs Temperature 98.0 F 12/18/16 06:00 Pulse Rate 77 12/18/16 06:00 Respiratory Rate 18 12/18/16 06:00 Blood Pressure 124/70 12/18/16 06:00 O2 Sat by Pulse Oximetry (%) 99 12/17/16 14:21 Constitutional: Yes: No Distress Cardiovascular: Yes: Regular Rate and Rhythm Respiratory: Yes: Diminished, Rhonchi Gastrointestinal: Yes: Normal Bowel Sounds, Soft. No: Distention, Tenderness Extremities: Yes: Other (right knee-- swollen , warm and tender) Edema: No Neurological: Yes: Alert, Oriented Labs: CBC, BMP 12/18/16 06:00 12/18/16 06:00 Imaging - Results Chest X-ray: Image Reviewed (no infiltrate) Cat Scan: Report Reviewed (CT chest- negative for PE, no pneumonia, effusion, nodules) EKG: Image Reviewed (sinus) Problem List - Problems (1) Asthma with COPD Code(s): J44.9 - CHRONIC OBSTRUCTIVE PULMONARY DISEASE, UNSPECIFIED J45.909 - UNSPECIFIED ASTHMA, UNCOMPLICATED (2) Shortness of breath Code(s): R06.02 - SHORTNESS OF BREATH (3) Bacteremia Code(s): R78.81 - BACTEREMIA (4) HTN (hypertension) Code(s): I10 - ESSENTIAL (PRIMARY) HYPERTENSION Qualifiers: Hypertension type: essential hypertension Qualified Code(s): I10 - Essential (primary) hypertension Assessment/Plan PLAN received Vanco in ER continue with meds nebs as needed check Echocardiogram blood cultures repeated ID and pulmonary consulted solumedrol iv DVT prophylaxis-- Lovenoxsc Check xray of knee, will need Ortho eval pain meds for the knee Time spent 40 min
[2016-12-18] MEDS ORDERED: PT OWN MED DRAWER 7, Y5N ONE (09:28)
[2016-12-18] MEDS: ROFLUMILAST 500 MCG TABLET PO SCH (09:29)
[2016-12-18] MEDS: PANTOPRAZOLE 40 MG TABLET (FP) PO SCH (09:29)
[2016-12-18] MEDS: ASPIRIN 81 MG CHEWABLE TABLETS PO SCH (09:29)
[2016-12-18] MEDS: BUDESONIDE/FORMETEROL FUMARATE 160/4.5 mcg INHALER IH SCH ×2 (09:29→22:30)
--- NOTE | 2016-12-18 10:32 | CON.PULM ---
Consult Consult Specialty:: PULM/CCM Referred by:: ZENA Reason for Consultation:: SOB - History of Present Illness Chief Complaint: SOB History of Present Illness: 56 F, well known to me. COPD due to previous significant smoking history, hypertension, hypercholesterolemia, gastroesophageal reflux disease, and thyroid disease. Recent ER visit for AE of COPD. Feels that the tapering of the Prednisone has also caused increasing symptoms. Reports that her son continues to smoke in her home and she also reports that her neighbor has a new cat that she can smell from her apartment. Denies smoking herself. (+) increasing congested cough. No fever or chills. Noted recent right knee surgery, but no clinical symptoms consistent with a VTE. No hemoptysis or night sweats. CT : Emphysema pattern with no acute process. - History Source History Provided By: Patient Limitations to Obtaining History: No Limitations - Past Medical History Cardio/Vascular: Yes: HTN Pulmonary: Yes: COPD Gastrointestinal: Yes: Other (HERNIA REPAIR WITH COMPLICATIONS AND POST OP SBO) ...LMP: 08/04/13 ...: No Psych: Yes: Anxiety - Past Surgical History Past Surgical History: Yes: Hernia Repair - Alcohol/Substance Use Hx Alcohol Use: No - Smoking History Smoking history: Former smoker Have you smoked in the past 12 months: No Aproximately how many cigarettes per day: 0 If you are a former smoker, when did you quit?: 2011 Home Medications - Allergies Allergies/Adverse Reactions: Allergies Allergy/AdvReac Type Severity Reaction Status Date / Time Penicillins Allergy Hives Verified 12/17/16 09:38 Sulfa (Sulfonamide Allergy Hives Verified 12/17/16 09:38 Antibiotics) [Sulfa(Sulfonamide Antibiotics)] - Home Medications Home Medications: Ambulatory Orders Atorvastatin Ca [Lipitor] 10 mg PO HS 06/24/15 Roflumilast [Daliresp] 500 mcg PO DAILY 06/24/15 Tiotropium [place] [Spiriva] 1 inh PO DAILY 06/24/15 Aspirin [ASA -] 81 mg PO DAILY 03/21/16 Cholecalciferol (Vitamin D3) [Vitamin D -] 400 unit PO DAILY tablet 03/28/16 Cyanocobalamin [Vitamin B12 -] 1,000 mcg PO DAILY tablet 03/28/16 Diltiazem Cd [Cardizem Cd -] 180 mg PO DAILY #60 cap.cd.24h 06/08/16 Amitriptyline HCl [Elavil -] 25 mg PO HS 09/23/16 Pantoprazole Sodium [Protonix -] 40 mg PO DAILY tablet.ec 09/26/16 Clonazepam [Klonopin -] 0.5 mg PO PRN PRN 11/23/16 [place]-3 Fatty Acids [Fish Oil] 300 mg PO DAILY 11/23/16 Salmeterol/Fluticasone [Advair 500Mcg/50Mcg -] 1 inh PO BID 11/23/16 Albuterol Sulfate Inhaler - [Ventolin Hfa Inhaler -] 1 - 2 inh PO Q4H PRN #1 inhaler 12/11/16 Family Disease History - Family Disease History Family Disease History: CA: Father (Lung CA), Other: Mother (HTN) Review of Systems - Review of Systems Constitutional: reports: Malaise. denies: Chills, Fever, Night Sweats, Unintentional Wgt. Loss, Weakness Eyes: reports: No Symptoms HENT: denies: Ear Pain, Epistaxis, Hearing Loss, Nasal Congestion, Throat Pain, Ringing in Ears Neck: reports: No Symptoms Cardiovascular: reports: Shortness of Breath. denies: Chest Pain, Edema, Palpitations Respiratory: reports: Cough, SOB, SOB on Exertion, Wheezing. denies: Hemoptysis Gastrointestinal: reports: No Symptoms Genitourinary: reports: No Symptoms Breasts: reports: No Symptoms Reported Musculoskeletal: reports: Joint Pain Integumentary: reports: No Symptoms Neurological: reports: No Symptoms Endocrine: reports: No Symptoms Hematology/Lymphatic: reports: No Symptoms Psychiatric: reports: No Symptoms Physical Exam Vital Sings: Vital Signs Temperature 98.0 F 12/18/16 06:00 Pulse Rate 77 12/18/16 06:00 Respiratory Rate 18 12/18/16 06:00 Blood Pressure 124/70 12/18/16 06:00 O2 Sat by Pulse Oximetry (%) 99 12/17/16 14:21 Constitutional: Yes: No Distress, Calm Eyes: Yes: Conjunctiva Clear, EOM Intact HENT: Yes: Atraumatic, Normocephalic Neck: Yes: Supple, Trachea Midline Cardiovascular: Yes: Regular Rate and Rhythm Respiratory: Yes: Cough, Diminished, On Nasal O2, Rhonchi, SOB, SOB on Exertion , Wheezes. No: Accessory Muscle Use, Stridor, Tachypnea ...Inspection: Yes: WNL ...Clubbing: No Gastrointestinal: Yes: WNL, Normal Bowel Sounds, Soft Renal/: Yes: WNL Musculoskeletal: Yes: WNL Extremities: Yes: WNL Edema: No Peripheral Pulses WNL: Yes Integumentary: Yes: WNL Neurological: Yes: WNL, Alert, Oriented ...Motor Strength: WNL Psychiatric: Yes: WNL, Alert, Oriented Labs: CBC, BMP 12/18/16 06:00 12/18/16 06:00 Imaging - Results Chest X-ray: Report Reviewed Cat Scan: Report Reviewed, Image Reviewed Problem List - Problems (1) Asthma with COPD Code(s): J44.9 - CHRONIC OBSTRUCTIVE PULMONARY DISEASE, UNSPECIFIED J45.909 - UNSPECIFIED ASTHMA, UNCOMPLICATED (2) COPD (chronic obstructive pulmonary disease) with acute bronchitis Code(s): J44.0 - CHRONIC OBSTRUCTIVE PULMON DISEASE W ACUTE LOWER RESP INFCT (3) COPD exacerbation Code(s): J44.1 - CHRONIC OBSTRUCTIVE PULMONARY DISEASE W (ACUTE) EXACERBATION (4) H/O ventral hernia repair Code(s): Z98.89 - OTHER SPECIFIED POSTPROCEDURAL STATES * DO NOT USE * Z87.19 - PERSONAL HISTORY OF OTHER DISEASES OF THE DIGESTIVE SYSTEM (5) HTN (hypertension) Code(s): I10 - ESSENTIAL (PRIMARY) HYPERTENSION (6) Thyromegaly Code(s): E04.9 - NONTOXIC GOITER, UNSPECIFIED (7) Wheezing Code(s): R06.2 - WHEEZING Assessment/Plan PLAN: IV Medrol Spiriva LABA/ICS BD TX Noted ID was called VTE prophylaxis No smoking Will follow Thank you. Dr Fang
[2016-12-18] MEDS: methylPREDNISolone NA SUCC 40 MG/1 ML VIAL IVPB SCH ×2 (11:12→17:21)
--- NOTE | 2016-12-18 12:37 | PN ---
Progress Note (short form) - Note Progress Note: ID Consult dictated 56 year old female S/P arthroscopic R knee surgery 11/23/16 recurrent skin/ soft tissue infections, admitted with COPD exacerbation BC from 12/11/16 ER visit + P. acnes x 1 bottle +BC ? significance Repeat BC x2 ESR CRP Echo Empiric vancomycin Ortho eval R knee
[2016-12-18] MEDS: TIOTROPIUM BROMIDE 18 MCG/INH (DEVICE W/ 5 CAPSULES) IH SCH (12:54)
[2016-12-18] MEDS: VANCOMYCIN 1 GRAM (PRE-DOCKED) 250 ML IVPB SCH (12:59)
--- NOTE | 2016-12-18 13:23 | CONS ---
DATE OF CONSULTATION: DATE OF DICTATION: 12/18/2016 The patient is a 56-year-old female with a history of recurrent skin and soft tissue infections and recent arthroscopic right knee surgery evaluated for positive blood culture. The patient underwent arthroscopic surgery of the right knee on November 23, 2016, for what she described as a torn meniscus. Her postoperative course was complicated by continued right knee pain and slight swelling. She has a history of COPD and was in the emergency room for an acute exacerbation on December 10, 2016. At that time, there was a report of temperature elevation; however, I cannot confirm that. She was treated with a course of prednisone and Zithromax. Blood cultures done on December 11, 2016, were positive for Propionibacterium acnes x1 bottle. She was recalled to the emergency room for evaluation. Patient complained of shortness of breath and chest discomfort. A CT scan of the chest was performed and was negative for pulmonary embolism or pneumonia. She complains of some right knee pain and swelling. She did describe recent febrile illness and some chills. PAST MEDICAL HISTORY: COPD, history of recurrent skin and soft tissue infections, including MRSA soft tissue abscesses and an MRSA bacteremia in June 2015. She has a history of morbid obesity, hypertension, hyperlipidemia, gastroesophageal reflux. PAST SURGICAL HISTORY: Status post umbilical hernia repair complicated by small bowel obstruction. ALLERGIES: PENICILLIN and SULFA (rash). MEDICATIONS: Tylenol, Ventolin, Elavil, aspirin, Lipitor, Klonopin, Protonix, oxycodone. SOCIAL HISTORY: Former smoker. Lives at home. SYSTEMS REVIEW: Neurologic: No loss of consciousness, seizure activity, focal weakness. Cardiac: As per HPI. Respiratory: As per HPI. Gastrointestinal: Negative vomiting or diarrhea. Genitourinary: Negative for urinary tract infection. LABORATORY DATA: White count on admission 18.9, presently 9.0; hematocrit 35.5; platelet count 335. Creatinine 0.6. Blood cultures, 1 bottle from December 11, positive for Propionibacterium acnes. PHYSICAL EXAMINATION: General: She is awake and alert. She is not acutely toxic-appearing. Vital Signs: Temperature 98.0, blood pressure 124/70, pulse 77 and regular, respirations 18 per minute. HEENT: Sclerae anicteric. Heart Sounds: S1, S2. No loud murmur. Lungs: Clear. Abdomen: Soft. No tenderness elicited. No mass, rebound, or rigidity. Extremities: On examination of the right knee, there is slight swelling of the right knee. No erythema, warmth, or tenderness. Healed incisional wounds present. They do not appear to be infected. IMPRESSION: A 56-year-old female with a history of recurrent skin and soft tissue infections admitted with chronic obstructive pulmonary disease exacerbation, found to have positive blood culture from December 11 for Propionibacterium acnes. Significance of positive blood culture not clear, in light of recent arthroscopic surgery, recent description of fever, chills, and prior history of recurrent skin and soft tissue infections. We will repeat blood cultures x2, obtain sedimentation rate, C-reactive protein, echocardiogram. Empiric antibiotic coverage pending repeat cultures. Orthopedic evaluation of the right knee. Will follow. Thank you for the kind referral. NAVARRO VILLARREAL M.D. [id number]
[2016-12-18] MEDS: ALBUTEROL SO4 0.083% IH SOL 2.5 MG/3 ML VIAL.NEB. NEB SCH ×2 (14:00→23:48)
[2016-12-18] MEDS: AMITRIPTYLINE HCL 25 MG TABLET (FP) PO SCH (21:40)
[2016-12-18] MEDS: ATORVASTATIN CA 10 MG TABLET (FP) PO SCH (21:40)
[2016-12-19] MEDS: methylPREDNISolone NA SUCC 40 MG/1 ML VIAL IVPB SCH ×3 (02:06→18:33)
[2016-12-19] MEDS: VANCOMYCIN 1 GRAM (PRE-DOCKED) 250 ML IVPB SCH ×2 (02:40→14:10)
[2016-12-19] MEDS: ALBUTEROL SO4 0.083% IH SOL 2.5 MG/3 ML VIAL.NEB. NEB SCH ×3 (07:09→22:08)
[2016-12-19 07:43] LABS: MCH 29.6 pg (25.7-33.7); MCHC 33.4 g/dl (32.0-36.0); MEAN CELL VOLUME 88.6 fl (80-96); MEAN PLT VOLUME 6.9 fl (7.5-11.1); NEUTROPHILS 93.1 % (42.8-82.8); PLATELET COUNT 401 K/MM3 (134-434); RDW 15.2 % (11.6-15.6)
[2016-12-19 08:17] LABS: ALBUMIN 3.3 g/dl (3.4-5.0); ALK PHOS 80 U/L (45-117); ANION GAP 10 (8-16); BILIRUBIN,TOTAL 0.7 mg/dL (0.2-1.0); CALCIUM 9.2 mg/dL (8.5-10.1); CO2 25 mmol/L (21-32); COCKROFT - GAULT 127.4405; CREATININE 0.6 mg/dL (0.55-1.02); GLUCOSE,RANDOM 149 mg/dL (74-106); SGOT/AST 10 U/L (15-37); SGPT/ALT 15 U/L (12-78); TOT PROT 6.1 g/dl (6.4-8.2)
--- NOTE | 2016-12-19 08:30 | PN ---
Progress Note (short form) - Note Progress Note: Subjective Patient seen and examined. Chart reviewed. Just came back from Echo. Remains afebrile. Objective Last Vital Signs Temp Pulse Resp BP Pulse Ox 97.8 F 93 H 18 144/78 99 12/19/16 06:00 12/19/16 06:00 12/19/16 06:00 12/19/16 06:00 12/17/16 14:21 CBC, BMP 12/19/16 06:00 12/19/16 06:00 Laboratory Results - last 24 hr 12/19/16 12/19/16 12/19/16 06:00 06:00 06:00 WBC 15.0 H D RBC 4.21 Hgb 12.4 Hct 37.3 MCV 88.6 MCHC 33.4 RDW 15.2 Plt Count 401 MPV 6.9 L Neutrophils % 93.1 H D Lymphocytes % 6.0 L D Monocytes % 0.9 L D Eosinophils % 0.0 D Basophils % 0.0 Sodium 139 Potassium 4.2 Chloride 104 Carbon Dioxide 25 Anion Gap 10 BUN 14 Creatinine 0.6 Creat Clearance w eGFR > 60 Random Glucose 149 H D Calcium 9.2 Total Bilirubin 0.7 AST 10 L D ALT 15 Alkaline Phosphatase 80 C-Reactive Protein 1.1 H D Total Protein 6.1 L Albumin 3.3 L Physical Exam Constitutional: Yes: No Distress Cardiovascular: Yes: Regular Rate and Rhythm Respiratory: Yes: Diminished, Rhonchi-- scattered. Gastrointestinal: Yes: Normal Bowel Sounds, Soft. No: Distention, Tenderness Extremities: Yes: Other (right knee-- swollen , warm and tender) Edema: No Neurological: Yes: Alert, Oriented Assessment and Plan Clinically stable. Continue steroids. Taper slowly. Follow up blood cultures. Significance of positive blood culture?? Follow up cultures are negative so far. Continue Vanco. ID on case. If cultures negative-- consider d.c abx tomorrow. Continue other meds. Ortho consult also noted. Will follow. Documentation prepared by Chantal Hawthorne, acting as a medical cash poster for Cairna Dixon MD.
--- NOTE | 2016-12-19 08:59 | CON.ORTH ---
Consult Reason for Consultation:: right knee pain s/p arthroscopy - Past Medical History Cardio/Vascular: Yes: HTN Pulmonary: Yes: COPD Gastrointestinal: Yes: Other (HERNIA REPAIR WITH COMPLICATIONS AND POST OP SBO) ...LMP: 08/04/13 ...: No Psych: Yes: Anxiety - Past Surgical History Past Surgical History: Yes: Hernia Repair - Alcohol/Substance Use Hx Alcohol Use: No - Smoking History Smoking history: Former smoker Have you smoked in the past 12 months: No Aproximately how many cigarettes per day: 0 If you are a former smoker, when did you quit?: 2011 Home Medications - Allergies Allergies/Adverse Reactions: Allergies Allergy/AdvReac Type Severity Reaction Status Date / Time Penicillins Allergy Hives Verified 12/17/16 09:38 Sulfa (Sulfonamide Allergy Hives Verified 12/17/16 09:38 Antibiotics) [Sulfa(Sulfonamide Antibiotics)] - Home Medications Home Medications: Ambulatory Orders Atorvastatin Ca [Lipitor] 10 mg PO HS 06/24/15 Roflumilast [Daliresp] 500 mcg PO DAILY 06/24/15 Tiotropium [place] [Spiriva] 1 inh PO DAILY 06/24/15 Aspirin [ASA -] 81 mg PO DAILY 03/21/16 Cholecalciferol (Vitamin D3) [Vitamin D -] 400 unit PO DAILY tablet 03/28/16 Cyanocobalamin [Vitamin B12 -] 1,000 mcg PO DAILY tablet 03/28/16 Diltiazem Cd [Cardizem Cd -] 180 mg PO DAILY #60 cap.cd.24h 06/08/16 Amitriptyline HCl [Elavil -] 25 mg PO HS 09/23/16 Pantoprazole Sodium [Protonix -] 40 mg PO DAILY tablet.ec 09/26/16 Clonazepam [Klonopin -] 0.5 mg PO PRN PRN 11/23/16 [place]-3 Fatty Acids [Fish Oil] 300 mg PO DAILY 11/23/16 Salmeterol/Fluticasone [Advair 500Mcg/50Mcg -] 1 inh PO BID 11/23/16 Albuterol Sulfate Inhaler - [Ventolin Hfa Inhaler -] 1 - 2 inh PO Q4H PRN #1 inhaler 12/11/16 Family Disease History - Family Disease History Family Disease History: CA: Father (Lung CA), Other: Mother (HTN) Physical Exam for Ortho Vital Signs: Vital Signs Temperature 97.8 F 12/19/16 06:00 Pulse Rate 93 H 12/19/16 06:00 Respiratory Rate 18 12/19/16 06:00 Blood Pressure 144/78 12/19/16 06:00 O2 Sat by Pulse Oximetry (%) 99 12/17/16 14:21 Labs: CBC, BMP 12/19/16 06:00 12/19/16 06:00 - Lower Extremity Knee: Yes: Right, Other (portal sites well healed, mild swelling, minimal tenderness, rom 0-100, calf soft, nt, nvi) Imaging - Results X-ray: Report Reviewed, Image Reviewed Assessment/Plan 56-year-old woman with a significant past medical history of hypertension, hypercholesterolemia, chronic obstructive pulmonary disorder, gastroesophageal reflux disease and thyroid disease, who presented to the emergency department via walk-in for further evaluation of progressively worsening shortness of breath for the past week. She is approximately 1 month s/p right knee arthroscopy with debridement chondroplasty of MFC. She has been progressing but unable to perform PT due other medical conditions. a/p s/p right knee arthroscopy debridement chondroplasty [facility] [place]- normal post-op appearance of the knee- has performed only 1 session of PT PT, wbat Nothing further to do has PT appts for next week as well f/u with Dr. St d/w Dr. St
[2016-12-19] MEDS: BUDESONIDE/FORMETEROL FUMARATE 160/4.5 mcg INHALER IH SCH ×2 (10:21→21:28)
--- NOTE | 2016-12-19 10:23 | EKG ---
Test Reason : Blood Pressure : / mmHG Vent. Rate : 088 BPM Atrial Rate : 088 BPM P-R Int : 142 ms QRS Dur : 080 ms QT Int : 348 ms P-R-T Axes : 061 -01 025 degrees QTc Int : 421 ms NORMAL SINUS RHYTHM POSSIBLE LEFT ATRIAL ENLARGEMENT LEFT VENTRICULAR HYPERTROPHY ABNORMAL ECG WHEN COMPARED WITH ECG OF 16-SEP-2016 22:18, NO SIGNIFICANT CHANGE WAS FOUND Confirmed by AMY GIBBS MD ([id number]) on 12/19/2016 10:23:31 AM Referred By: Confirmed By:AMY GIBBS MD
[2016-12-19] MEDS ORDERED: PT OWN MED DRAWER 7, Y5N ONE (10:24)
[2016-12-19] MEDS: PANTOPRAZOLE 40 MG TABLET (FP) PO SCH (10:32)
[2016-12-19] MEDS: ASPIRIN 81 MG CHEWABLE TABLETS PO SCH (10:32)
[2016-12-19] MEDS: ROFLUMILAST 500 MCG TABLET PO SCH (10:33)
[2016-12-19] MEDS: TIOTROPIUM BROMIDE 18 MCG/INH (DEVICE W/ 5 CAPSULES) IH SCH (10:33)
[2016-12-19] MEDS: ENOXAPARIN NA (PORCINE) 40 MG/0.4 ML DISP.SYRIN SQ SCH (10:33)
--- NOTE | 2016-12-19 12:17 | PN ---
Progress Note (short form) - Note Progress Note: Still wheezing today. Breathing feels about the same. Some congested cough. No CP. Intake & Output 12/16/16 12/17/16 12/18/16 12/19/16 23:59 23:59 23:59 23:59 Intake Total 720 780 780 Balance 720 780 780 Weight 170 lb Last Vital Signs Temp Pulse Resp BP Pulse Ox 98.0 F 107 H 20 127/87 99 12/19/16 10:00 12/19/16 11:56 12/19/16 11:56 12/19/16 11:56 12/17/16 14:21 Active Medications Acetaminophen (Tylenol -) 325 mg PO Q6H PRN PRN Reason: PAIN Last Admin: 12/18/16 11:10 Dose: 325 mg Albuterol Sulfate (Ventolin 0.083% Nebulizer Soln -) 1 amp NEB Q6H PRN PRN Reason: SHORT OF BREATH/WHEEZING Albuterol Sulfate (Ventolin Hfa Inhaler -) 2 puff IH Q4H PRN PRN Reason: DIFFICULTY BREATHING Albuterol Sulfate (Ventolin 0.083% Nebulizer Soln -) 1 amp NEB TIDR [facility] Last Admin: 12/19/16 07:09 Dose: Not Given Amitriptyline HCl (Elavil -) 25 mg PO [facility] Last Admin: 12/18/16 21:40 Dose: 25 mg Aspirin (Asa -) 81 mg PO DAILY [facility] Last Admin: 12/19/16 10:32 Dose: 81 mg Atorvastatin Calcium (Lipitor -) 10 mg PO HS [facility] Last Admin: 12/18/16 21:40 Dose: 10 mg Budesonide/Formoterol Fumarate (Symbicort 160/4.5mcg -) 2 puff IH BID [facility] Last Admin: 12/19/16 10:21 Dose: Not Given Clonazepam (Klonopin -) 0.5 mg PO Q6H PRN PRN Reason: ANXIETY Diltiazem HCl (Cardizem Cd -) 180 mg PO DAILY [facility] Last Admin: 12/19/16 10:32 Dose: 180 mg Enoxaparin Sodium (Lovenox -) 40 mg SQ DAILY [facility] Last Admin: 12/19/16 10:33 Dose: 40 mg Vancomycin HCl (Vancomycin (Pre-Docked)) 250 mls @ 250 mls/hr IVPB BID@0200, 1400 [facility] Last Admin: 12/19/16 02:40 Dose: 250 mls/hr Methylprednisolone Sodium Succinate (Solu-Medrol -) 60 mg IVPB Q8H-IV [facility] Last Admin: 12/19/16 10:32 Dose: 60 mg Oxycodone HCl (Roxicodone -) 5 mg PO Q6H PRN PRN Reason: PAIN Last Admin: 12/18/16 11:09 Dose: 5 mg Pantoprazole Sodium (Protonix -) 40 mg PO DAILY [facility] Last Admin: 12/19/16 10:32 Dose: 40 mg Roflumilast (Daliresp -) 500 mcg PO DAILY [facility] Last Admin: 12/19/16 10:33 Dose: 500 mcg Tiotropium [place] (Spiriva -) 1 puff IH DAILY [facility] Last Admin: 12/19/16 10:33 Dose: 1 puff Constitutional: Yes: No Distress Eyes: Yes: Conjunctiva Clear, EOM Intact HENT: Yes: Atraumatic, Normocephalic Neck: Yes: Supple, Trachea Midline Cardiovascular: Yes: Regular Rate and Rhythm Respiratory: Yes: Cough, Diminished, On Nasal O2, Rhonchi, SOB, SOB on Exertion , Wheezes. No: Accessory Muscle Use, Stridor, Tachypnea ...Inspection: Yes: WNL ...Clubbing: No Gastrointestinal: Yes: WNL, Normal Bowel Sounds, Soft Renal/: Yes: WNL Musculoskeletal: Yes: WNL Extremities: Yes: WNL Edema: No Peripheral Pulses WNL: Yes Integumentary: Yes: WNL Neurological: Yes: WNL, Alert, Oriented ...Motor Strength: WNL Psychiatric: Yes: WNL, Alert, Oriented Labs: Laboratory Results - last 24 hr 12/19/16 12/19/16 12/19/16 06:00 06:00 06:00 WBC 15.0 H D RBC 4.21 Hgb 12.4 Hct 37.3 MCV 88.6 MCHC 33.4 RDW 15.2 Plt Count 401 MPV 6.9 L Neutrophils % 93.1 H D Lymphocytes % 6.0 L D Monocytes % 0.9 L D Eosinophils % 0.0 D Basophils % 0.0 ESR 28 Sodium 139 Potassium 4.2 Chloride 104 Carbon Dioxide 25 Anion Gap 10 BUN 14 Creatinine 0.6 Creat Clearance w eGFR > 60 Random Glucose 149 H D Calcium 9.2 Total Bilirubin 0.7 AST 10 L D ALT 15 Alkaline Phosphatase 80 C-Reactive Protein Total Protein 6.1 L Albumin 3.3 L 12/19/16 06:00 WBC RBC Hgb Hct MCV MCHC RDW Plt Count MPV Neutrophils % Lymphocytes % Monocytes % Eosinophils % Basophils % ESR Sodium Potassium Chloride Carbon Dioxide Anion Gap BUN Creatinine Creat Clearance w eGFR Random Glucose Calcium Total Bilirubin AST ALT Alkaline Phosphatase C-Reactive Protein 1.1 H D Total Protein Albumin Problem List - Problems (1) Asthma with COPD Code(s): J44.9 - CHRONIC OBSTRUCTIVE PULMONARY DISEASE, UNSPECIFIED J45.909 - UNSPECIFIED ASTHMA, UNCOMPLICATED (2) COPD (chronic obstructive pulmonary disease) with acute bronchitis Code(s): J44.0 - CHRONIC OBSTRUCTIVE PULMON DISEASE W ACUTE LOWER RESP INFCT (3) COPD exacerbation Code(s): J44.1 - CHRONIC OBSTRUCTIVE PULMONARY DISEASE W (ACUTE) EXACERBATION (4) H/O ventral hernia repair Code(s): Z98.89 - OTHER SPECIFIED POSTPROCEDURAL STATES * DO NOT USE * Z87.19 - PERSONAL HISTORY OF OTHER DISEASES OF THE DIGESTIVE SYSTEM (5) HTN (hypertension) Code(s): I10 - ESSENTIAL (PRIMARY) HYPERTENSION (6) Thyromegaly Code(s): E04.9 - NONTOXIC GOITER, UNSPECIFIED (7) Wheezing Code(s): R06.2 - WHEEZING Assessment/Plan PLAN: IV Medrol at the same dose Spiriva LABA/ICS BD TX ABX per ID VTE prophylaxis No smoking Dr Fang Problem List - Problems (1) Asthma with COPD Code(s): J44.9 - CHRONIC OBSTRUCTIVE PULMONARY DISEASE, UNSPECIFIED J45.909 - UNSPECIFIED ASTHMA, UNCOMPLICATED (2) COPD (chronic obstructive pulmonary disease) with acute bronchitis Code(s): J44.0 - CHRONIC OBSTRUCTIVE PULMON DISEASE W ACUTE LOWER RESP INFCT (3) COPD exacerbation Code(s): J44.1 - CHRONIC OBSTRUCTIVE PULMONARY DISEASE W (ACUTE) EXACERBATION (4) H/O ventral hernia repair Code(s): Z98.89 - OTHER SPECIFIED POSTPROCEDURAL STATES * DO NOT USE * Z87.19 - PERSONAL HISTORY OF OTHER DISEASES OF THE DIGESTIVE SYSTEM (5) HTN (hypertension) Code(s): I10 - ESSENTIAL (PRIMARY) HYPERTENSION Qualifiers: Hypertension type: essential hypertension Qualified Code(s): I10 - Essential (primary) hypertension (6) Thyromegaly Code(s): E04.9 - NONTOXIC GOITER, UNSPECIFIED (7) Wheezing Code(s): R06.2 - WHEEZING
[2016-12-19] MEDS: oxyCODONE HCL 5 MG TABLET PO PRN (12:21)
[2016-12-19] MEDS: ACETAMINOPHEN 325 MG TABLET (FP) PO PRN (12:22)
[2016-12-19] MEDS ORDERED: ACETAMINOPHEN 500 MG TABLET (FP) PO PRN (14:33)
[2016-12-19] MEDS ORDERED: POLYETHYLENE GLYCOL 3350 119 GM BTL PO PRN (14:34)
--- NOTE | 2016-12-19 16:01 | CON.CARD ---
Cardiology Consult (text) - Consultation Consultation Note: CC: bacteremia HPI: 56 yo with h/o HTN, HL, COPD, hyperthyroid/goiter, GERD, borderline diabetes admitted for bacteremia noted to have tachycardia Recent ER visit for sob. --> noted to have fever, (101.9) thus blood cultures were done. Blood culture was positive for propionibacterium acnes. Still with sob. + intermittent pain at site of recent knee surgery - recently decreased her po intake b/c had been gaining weight on prednisone. + dizziness when getting up quickly feels sensation of heart racing when tachycardic, no associated sx's denies orthopnea, pnd, le edema, cp, bleeding transient neurologic symptoms. denies headache, fever, chills, sweats She denies abdominal pain,nausea, vomiting, diarrhea, cough, congestion PMHx: Per HPI, additionally anxiety PSHx: lHERNIA REPAIR WITH COMPLICATIONS AND POST OP SBO, arthroscopic R knee surgery 11/23/16 Social hx: Former smoker, No alcohol or illicits Fam hx: No cardiac family history ROS: Per HPI, additionally, no h/a, no rash, Ambulatory Orders Atorvastatin Ca [Lipitor] 10 mg PO HS 06/24/15 Roflumilast [Daliresp] 500 mcg PO DAILY 06/24/15 Tiotropium [place] [Spiriva] 1 inh PO DAILY 06/24/15 Aspirin [ASA -] 81 mg PO DAILY 03/21/16 Cholecalciferol (Vitamin D3) [Vitamin D -] 400 unit PO DAILY tablet 03/28/16 Cyanocobalamin [Vitamin B12 -] 1,000 mcg PO DAILY tablet 03/28/16 Diltiazem Cd [Cardizem Cd -] 180 mg PO DAILY #60 cap.cd.24h 06/08/16 Amitriptyline HCl [Elavil -] 25 mg PO HS 09/23/16 Pantoprazole Sodium [Protonix -] 40 mg PO DAILY tablet.ec 09/26/16 Clonazepam [Klonopin -] 0.5 mg PO PRN PRN 11/23/16 [place]-3 Fatty Acids [Fish Oil] 300 mg PO DAILY 11/23/16 Salmeterol/Fluticasone [Advair 500Mcg/50Mcg -] 1 inh PO BID 11/23/16 Albuterol Sulfate Inhaler - [Ventolin Hfa Inhaler -] 1 - 2 inh PO Q4H PRN #1 inhaler 12/11/16 Current Medications Acetaminophen (Tylenol -) 325 mg PO Q6H PRN PRN Reason: PAIN Last Admin: 12/19/16 12:22 Dose: 325 mg Acetaminophen (Tylenol -) 1,000 mg PO Q8H PRN PRN Reason: HEADACHE Albuterol Sulfate (Ventolin 0.083% Nebulizer Soln -) 1 amp NEB Q6H PRN PRN Reason: SHORT OF BREATH/WHEEZING Albuterol Sulfate (Ventolin Hfa Inhaler -) 2 puff IH Q4H PRN PRN Reason: DIFFICULTY BREATHING Albuterol Sulfate (Ventolin 0.083% Nebulizer Soln -) 1 amp NEB TIDR [facility] Last Admin: 12/19/16 14:40 Dose: Not Given Amitriptyline HCl (Elavil -) 25 mg PO HS [facility] Last Admin: 12/18/16 21:40 Dose: 25 mg Aspirin (Asa -) 81 mg PO DAILY [facility] Last Admin: 12/19/16 10:32 Dose: 81 mg Atorvastatin Calcium (Lipitor -) 10 mg PO HS [facility] Last Admin: 12/18/16 21:40 Dose: 10 mg Budesonide/Formoterol Fumarate (Symbicort 160/4.5mcg -) 2 puff IH BID [facility] Last Admin: 12/19/16 10:21 Dose: Not Given Clonazepam (Klonopin -) 0.5 mg PO Q6H PRN PRN Reason: ANXIETY Diltiazem HCl (Cardizem Cd -) 180 mg PO DAILY [facility] Last Admin: 12/19/16 10:32 Dose: 180 mg Enoxaparin Sodium (Lovenox -) 40 mg SQ DAILY [facility] Last Admin: 12/19/16 10:33 Dose: 40 mg Vancomycin HCl (Vancomycin (Pre-Docked)) 250 mls @ 250 mls/hr IVPB BID@0200, 1400 [facility] Last Admin: 12/19/16 14:10 Dose: 250 mls/hr Methylprednisolone Sodium Succinate (Solu-Medrol -) 60 mg IVPB Q8H-IV [facility] Last Admin: 12/19/16 10:32 Dose: 60 mg Oxycodone HCl (Roxicodone -) 5 mg PO Q6H PRN PRN Reason: PAIN Last Admin: 12/19/16 12:21 Dose: 5 mg Pantoprazole Sodium (Protonix -) 40 mg PO DAILY [facility] Last Admin: 12/19/16 10:32 Dose: 40 mg Polyethylene Glycol (Miralax (For Daily Use) -) 17 gm PO BID PRN PRN Reason: CONSTIPATION Roflumilast (Daliresp -) 500 mcg PO DAILY [facility] Last Admin: 12/19/16 10:33 Dose: 500 mcg Tiotropium [place] (Spiriva -) 1 puff IH DAILY [facility] Last Admin: 12/19/16 10:33 Dose: 1 puff Vital Signs - 24 hr 12/18/16 12/18/16 12/18/16 16:20 21:00 22:00 Temperature 98.6 F 98.1 F Pulse Rate 71 72 Respiratory 18 18 18 Rate Blood Pressure 128/71 125/66 O2 Sat by Pulse Oximetry (%) 12/19/16 12/19/16 12/19/16 06:00 09:00 10:00 Temperature 97.8 F 98.0 F Pulse Rate 93 H 122 H Respiratory 18 20 20 Rate Blood Pressure 144/78 138/89 O2 Sat by Pulse 98 Oximetry (%) 12/19/16 12/19/16 11:56 14:32 Temperature 98.6 F Pulse Rate 107 H 117 H Respiratory 20 20 Rate Blood Pressure 127/87 144/80 O2 Sat by Pulse Oximetry (%) Intake & Output 12/17/16 12/18/16 12/19/16 12/20/16 07:59 07:59 07:59 07:59 Intake Total 900 1080 600 Balance 900 1080 600 Weight 170 lb NAD, calm jvd flat, neck supple rrr nl S1, S2 no m/r/g. non-displaced pmi diffuse crackles, exp wheezes, nl eff + bs soft nt nd No LE edema, clubbing, cyanosis +dp/dt no carotid bruits no diaphoresis, jaundice aaox3 CBC, BMP 12/19/16 06:00 12/19/16 06:00 Microbiology 12/17/16 10:36 Blood - Peripheral Venous Blood Culture - Preliminary NO GROWTH OBTAINED AFTER 48 HOURS, INCUBATION TO CONTINUE FOR 3 DAYS. 12/17/16 10:36 Blood - Peripheral Venous Blood Culture - Preliminary NO GROWTH OBTAINED AFTER 48 HOURS, INCUBATION TO CONTINUE FOR 3 DAYS. Laboratory Tests 12/17/16 12/19/16 12/19/16 10:36 06:00 06:00 ESR 28 D-Dimer 284 H Total Bilirubin 0.7 AST 10 L D ALT 15 Alkaline Phosphatase 80 C-Reactive Protein Albumin 3.3 L 12/19/16 06:00 ESR D-Dimer Total Bilirubin AST ALT Alkaline Phosphatase C-Reactive Protein 1.1 H D Albumin EKG: nsr. LAE, LVH. early r wave progression, non-specific st abnormality Echo here: nl lv/rv/valves rvsp 30-[address]: no PE, moderate centrilobular emphysema A/P 56 yo with h/o HTN, HL, COPD, hyperthyroid/goiter, GERD, borderline diabetes admitted for bacteremia noted to have tachycardia bacteremia - ID following. TTE without evidence of valvular abnormality - no further + bcx tachycardia - long standing. Would treat underlying medical conditions. Mgm't of pulmonary disease/infection per pulm, id, pmd - pain control - check orthostatics, to rule out volume depletion - tsh HTN - con't dilt, controlled HL - cont atorva COPD: - mgm't per primary team/pulm.
--- NOTE | 2016-12-19 16:02 | PN ---
Progress Note, Physician History of Present Illness: Less knee pain No fever Repeat BC no growth WBC elevated on steroids ESR/ CRP unremarkable Echo no vegetations - Current Medication List Current Medications: Active Medications Acetaminophen (Tylenol -) 325 mg PO Q6H PRN PRN Reason: PAIN Last Admin: 12/19/16 12:22 Dose: 325 mg Acetaminophen (Tylenol -) 1,000 mg PO Q8H PRN PRN Reason: HEADACHE Albuterol Sulfate (Ventolin 0.083% Nebulizer Soln -) 1 amp NEB Q6H PRN PRN Reason: SHORT OF BREATH/WHEEZING Albuterol Sulfate (Ventolin Hfa Inhaler -) 2 puff IH Q4H PRN PRN Reason: DIFFICULTY BREATHING Albuterol Sulfate (Ventolin 0.083% Nebulizer Soln -) 1 amp NEB TIDR [facility] Last Admin: 12/19/16 14:40 Dose: Not Given Amitriptyline HCl (Elavil -) 25 mg PO HS [facility] Last Admin: 12/18/16 21:40 Dose: 25 mg Aspirin (Asa -) 81 mg PO DAILY [facility] Last Admin: 12/19/16 10:32 Dose: 81 mg Atorvastatin Calcium (Lipitor -) 10 mg PO HS [facility] Last Admin: 12/18/16 21:40 Dose: 10 mg Budesonide/Formoterol Fumarate (Symbicort 160/4.5mcg -) 2 puff IH BID [facility] Last Admin: 12/19/16 10:21 Dose: Not Given Clonazepam (Klonopin -) 0.5 mg PO Q6H PRN PRN Reason: ANXIETY Diltiazem HCl (Cardizem Cd -) 180 mg PO DAILY [facility] Last Admin: 12/19/16 10:32 Dose: 180 mg Enoxaparin Sodium (Lovenox -) 40 mg SQ DAILY [facility] Last Admin: 12/19/16 10:33 Dose: 40 mg Vancomycin HCl (Vancomycin (Pre-Docked)) 250 mls @ 250 mls/hr IVPB BID@0200, 1400 [facility] Last Admin: 12/19/16 14:10 Dose: 250 mls/hr Methylprednisolone Sodium Succinate (Solu-Medrol -) 60 mg IVPB Q8H-IV [facility] Last Admin: 12/19/16 10:32 Dose: 60 mg Oxycodone HCl (Roxicodone -) 5 mg PO Q6H PRN PRN Reason: PAIN Last Admin: 12/19/16 12:21 Dose: 5 mg Pantoprazole Sodium (Protonix -) 40 mg PO DAILY [facility] Last Admin: 12/19/16 10:32 Dose: 40 mg Polyethylene Glycol (Miralax (For Daily Use) -) 17 gm PO BID PRN PRN Reason: CONSTIPATION Roflumilast (Daliresp -) 500 mcg PO DAILY [facility] Last Admin: 12/19/16 10:33 Dose: 500 mcg Tiotropium [place] (Spiriva -) 1 puff IH DAILY [facility] Last Admin: 12/19/16 10:33 Dose: 1 puff - Objective Vital Signs: Vital Signs Temperature 98.6 F 12/19/16 14:32 Pulse Rate 117 H 12/19/16 14:32 Respiratory Rate 20 12/19/16 14:32 Blood Pressure 144/80 12/19/16 14:32 O2 Sat by Pulse Oximetry (%) 98 12/19/16 09:00 Constitutional: Yes: No Distress Eyes: Yes: Conjunctiva Clear Cardiovascular: Yes: Regular Rate and Rhythm, S1, S2 Respiratory: Yes: CTA Bilaterally Gastrointestinal: Yes: Normal Bowel Sounds. No: Tenderness Extremities: Yes: Other (minimal R knee swelling no erythema/ warmth) Edema: No Labs: CBC, BMP 12/19/16 06:00 12/19/16 06:00 Assessment/Plan + BC P. acnes x 1 bottle- likely contaminant COPD exacerbation Observe off antibiotics
[2016-12-19] MEDS: AMITRIPTYLINE HCL 25 MG TABLET (FP) PO SCH (21:33)
[2016-12-19] MEDS: ATORVASTATIN CA 10 MG TABLET (FP) PO SCH (21:33)
[2016-12-20] MEDS: methylPREDNISolone NA SUCC 40 MG/1 ML VIAL IVPB SCH ×2 (02:08→10:14)
[2016-12-20 08:26] LABS: CALCIUM 9.1 mg/dL (8.5-10.1); COCKROFT - GAULT 127.4405; CREATININE 0.6 mg/dL (0.55-1.02); THYROID STIMULATING HORMONE 0.04 uIU/ml (0.358-3.74)
[2016-12-20] MEDS ORDERED: PT OWN MED DRAWER 7, Y5N ONE ×2 (10:07→21:17)
[2016-12-20] MEDS: ASPIRIN 81 MG CHEWABLE TABLETS PO SCH (10:13)
[2016-12-20] MEDS: ENOXAPARIN NA (PORCINE) 40 MG/0.4 ML DISP.SYRIN SQ SCH (10:13)
[2016-12-20] MEDS: ROFLUMILAST 500 MCG TABLET PO SCH (10:14)
[2016-12-20] MEDS: PANTOPRAZOLE 40 MG TABLET (FP) PO SCH (10:14)
[2016-12-20] MEDS: ALBUTEROL SO4 0.083% IH SOL 2.5 MG/3 ML VIAL.NEB. NEB SCH ×3 (10:15→22:00)
[2016-12-20] MEDS: TIOTROPIUM BROMIDE 18 MCG/INH (DEVICE W/ 5 CAPSULES) IH SCH (10:15)
[2016-12-20] MEDS: BUDESONIDE/FORMETEROL FUMARATE 160/4.5 mcg INHALER IH SCH ×2 (10:15→22:13)
--- NOTE | 2016-12-20 11:52 | PN ---
Progress Note (short form) - Note Progress Note: Feels a little better today. Cough is improving. Less wheezing. Right knee feels better. Intake & Output 12/17/16 12/18/16 12/19/16 12/20/16 23:59 23:59 23:59 23:59 Intake Total 504 918 4789 100 Balance 883 904 6764 100 Weight 170 lb Last Vital Signs Temp Pulse Resp BP Pulse Ox 98.9 F 82 20 116/68 98 12/20/16 07:33 12/20/16 07:33 12/20/16 07:33 12/20/16 07:33 12/19/16 09:00 Active Medications Acetaminophen (Tylenol -) 325 mg PO Q6H PRN PRN Reason: PAIN Last Admin: 12/19/16 12:22 Dose: 325 mg Acetaminophen (Tylenol -) 1,000 mg PO Q8H PRN PRN Reason: HEADACHE Albuterol Sulfate (Ventolin 0.083% Nebulizer Soln -) 1 amp NEB Q6H PRN PRN Reason: SHORT OF BREATH/WHEEZING Albuterol Sulfate (Ventolin Hfa Inhaler -) 2 puff IH Q4H PRN PRN Reason: DIFFICULTY BREATHING Albuterol Sulfate (Ventolin 0.083% Nebulizer Soln -) 1 amp NEB TIDR [facility] Last Admin: 12/20/16 10:15 Dose: Not Given Amitriptyline HCl (Elavil -) 25 mg PO [facility] Last Admin: 12/19/16 21:33 Dose: 25 mg Aspirin (Asa -) 81 mg PO DAILY [facility] Last Admin: 12/20/16 10:13 Dose: 81 mg Atorvastatin Calcium (Lipitor -) 10 mg PO [facility] Last Admin: 12/19/16 21:33 Dose: 10 mg Budesonide/Formoterol Fumarate (Symbicort 160/4.5mcg -) 2 puff IH BID [facility] Last Admin: 12/20/16 10:15 Dose: Not Given Clonazepam (Klonopin -) 0.5 mg PO Q6H PRN PRN Reason: ANXIETY Diltiazem HCl (Cardizem Cd -) 180 mg PO DAILY [facility] Last Admin: 12/20/16 10:14 Dose: 180 mg Enoxaparin Sodium (Lovenox -) 40 mg SQ DAILY [facility] Last Admin: 12/20/16 10:13 Dose: 40 mg Methylprednisolone Sodium Succinate (Solu-Medrol -) 60 mg IVPB Q8H-IV [facility] Last Admin: 12/20/16 10:14 Dose: 60 mg Oxycodone HCl (Roxicodone -) 5 mg PO Q6H PRN PRN Reason: PAIN Last Admin: 12/19/16 12:21 Dose: 5 mg Pantoprazole Sodium (Protonix -) 40 mg PO DAILY [facility] Last Admin: 12/20/16 10:14 Dose: 40 mg Polyethylene Glycol (Miralax (For Daily Use) -) 17 gm PO BID PRN PRN Reason: CONSTIPATION Roflumilast (Daliresp -) 500 mcg PO DAILY [facility] Last Admin: 12/20/16 10:14 Dose: 500 mcg Tiotropium [place] (Spiriva -) 1 puff IH DAILY [facility] Last Admin: 12/20/16 10:15 Dose: 1 puff Constitutional: Yes: No Distress Eyes: Yes: Conjunctiva Clear, EOM Intact HENT: Yes: Atraumatic, Normocephalic Neck: Yes: Supple, Trachea Midline Cardiovascular: Yes: Regular Rate and Rhythm Respiratory: Yes: Cough, Diminished, On Nasal O2, Rhonchi, SOB, SOB on Exertion , Less expiratory Wheezes. No: Accessory Muscle Use, Stridor, Tachypnea ...Inspection: Yes: WNL ...Clubbing: No Gastrointestinal: Yes: WNL, Normal Bowel Sounds, Soft Renal/: Yes: WNL Musculoskeletal: Yes: WNL Extremities: Yes: WNL Edema: No Peripheral Pulses WNL: Yes Integumentary: Yes: WNL Neurological: Yes: WNL, Alert, Oriented ...Motor Strength: WNL Psychiatric: Yes: WNL, Alert, Oriented Labs: Laboratory Results - last 24 hr 12/20/16 06:15 Sodium 141 Potassium 3.9 Chloride 106 Carbon Dioxide 26 Anion Gap 9 BUN 16 Creatinine 0.6 Random Glucose 135 H Calcium 9.1 Magnesium 2.0 TSH 0.04 L Problem List - Problems (1) Asthma with COPD Code(s): J44.9 - CHRONIC OBSTRUCTIVE PULMONARY DISEASE, UNSPECIFIED J45.909 - UNSPECIFIED ASTHMA, UNCOMPLICATED (2) COPD (chronic obstructive pulmonary disease) with acute bronchitis Code(s): J44.0 - CHRONIC OBSTRUCTIVE PULMON DISEASE W ACUTE LOWER RESP INFCT (3) COPD exacerbation Code(s): J44.1 - CHRONIC OBSTRUCTIVE PULMONARY DISEASE W (ACUTE) EXACERBATION (4) H/O ventral hernia repair Code(s): Z98.89 - OTHER SPECIFIED POSTPROCEDURAL STATES * DO NOT USE * Z87.19 - PERSONAL HISTORY OF OTHER DISEASES OF THE DIGESTIVE SYSTEM (5) HTN (hypertension) Code(s): I10 - ESSENTIAL (PRIMARY) HYPERTENSION (6) Thyromegaly Code(s): E04.9 - NONTOXIC GOITER, UNSPECIFIED (7) Wheezing Code(s): R06.2 - WHEEZING Assessment/Plan PLAN: Taper IV Medrol Spiriva LABA/ICS BD TX ABX per ID VTE prophylaxis No smoking If clinically improved by AM -> potential change to Prednsione and D/C planning Dr Fang Problem List - Problems (1) Asthma with COPD Code(s): J44.9 - CHRONIC OBSTRUCTIVE PULMONARY DISEASE, UNSPECIFIED J45.909 - UNSPECIFIED ASTHMA, UNCOMPLICATED (2) COPD (chronic obstructive pulmonary disease) with acute bronchitis Code(s): J44.0 - CHRONIC OBSTRUCTIVE PULMON DISEASE W ACUTE LOWER RESP INFCT (3) COPD exacerbation Code(s): J44.1 - CHRONIC OBSTRUCTIVE PULMONARY DISEASE W (ACUTE) EXACERBATION (4) H/O ventral hernia repair Code(s): Z98.89 - OTHER SPECIFIED POSTPROCEDURAL STATES * DO NOT USE * Z87.19 - PERSONAL HISTORY OF OTHER DISEASES OF THE DIGESTIVE SYSTEM (5) HTN (hypertension) Code(s): I10 - ESSENTIAL (PRIMARY) HYPERTENSION Qualifiers: Hypertension type: essential hypertension Qualified Code(s): I10 - Essential (primary) hypertension (6) Thyromegaly Code(s): E04.9 - NONTOXIC GOITER, UNSPECIFIED (7) Wheezing Code(s): R06.2 - WHEEZING
--- NOTE | 2016-12-20 12:43 | PN ---
Progress Note (short form) - Note Progress Note: Ortho Pt seen and examined s/p right knee arthroscopy, feeling better decr pain and swelling, incr rom, 0-120 nvi a/p PT wbat d/c planning d/w Dr. St
[2016-12-20] MEDS: ACETAMINOPHEN 325 MG TABLET (FP) PO PRN (14:33)
[2016-12-20] MEDS: oxyCODONE HCL 5 MG TABLET PO PRN (14:34)
--- NOTE | 2016-12-20 20:42 | PN ---
Progress Note, Physician Chief Complaint: no complaints feels well rt knee less pain - Current Medication List Current Medications: Active Medications Acetaminophen (Tylenol -) 325 mg PO Q6H PRN PRN Reason: PAIN Last Admin: 12/20/16 14:33 Dose: 325 mg Acetaminophen (Tylenol -) 1,000 mg PO Q8H PRN PRN Reason: HEADACHE Albuterol Sulfate (Ventolin 0.083% Nebulizer Soln -) 1 amp NEB Q6H PRN PRN Reason: SHORT OF BREATH/WHEEZING Albuterol Sulfate (Ventolin Hfa Inhaler -) 2 puff IH Q4H PRN PRN Reason: DIFFICULTY BREATHING Albuterol Sulfate (Ventolin 0.083% Nebulizer Soln -) 1 amp NEB TIDR [facility] Last Admin: 12/20/16 17:55 Dose: Not Given Amitriptyline HCl (Elavil -) 25 mg PO [facility] Last Admin: 12/19/16 21:33 Dose: 25 mg Aspirin (Asa -) 81 mg PO DAILY [facility] Last Admin: 12/20/16 10:13 Dose: 81 mg Atorvastatin Calcium (Lipitor -) 10 mg PO [facility] Last Admin: 12/19/16 21:33 Dose: 10 mg Budesonide/Formoterol Fumarate (Symbicort 160/4.5mcg -) 2 puff IH BID [facility] Last Admin: 12/20/16 10:15 Dose: Not Given Clonazepam (Klonopin -) 0.5 mg PO Q6H PRN PRN Reason: ANXIETY Diltiazem HCl (Cardizem Cd -) 180 mg PO DAILY [facility] Last Admin: 12/20/16 10:14 Dose: 180 mg Enoxaparin Sodium (Lovenox -) 40 mg SQ DAILY [facility] Last Admin: 12/20/16 10:13 Dose: 40 mg Methylprednisolone Sodium Succinate (Solu-Medrol -) 60 mg IVPB BID [facility] Oxycodone HCl (Roxicodone -) 5 mg PO Q6H PRN PRN Reason: PAIN Last Admin: 12/20/16 14:34 Dose: 5 mg Pantoprazole Sodium (Protonix -) 40 mg PO DAILY [facility] Last Admin: 12/20/16 10:14 Dose: 40 mg Polyethylene Glycol (Miralax (For Daily Use) -) 17 gm PO BID PRN PRN Reason: CONSTIPATION Roflumilast (Daliresp -) 500 mcg PO DAILY [facility] Last Admin: 12/20/16 10:14 Dose: 500 mcg Tiotropium [place] (Spiriva -) 1 puff IH DAILY [facility] Last Admin: 12/20/16 10:15 Dose: 1 puff - Objective Vital Signs: Vital Signs Temperature 98.5 F 12/20/16 16:30 Pulse Rate 78 12/20/16 16:30 Respiratory Rate 20 12/20/16 16:30 Blood Pressure 121/64 12/20/16 16:30 O2 Sat by Pulse Oximetry (%) 96 12/20/16 09:00 Constitutional: Yes: No Distress Cardiovascular: Yes: Regular Rate and Rhythm Respiratory: Yes: Diminished, Rhonchi. No: CTA Bilaterally Gastrointestinal: Yes: Normal Bowel Sounds, Soft. No: Distention, Tenderness Musculoskeletal: Yes: Joint Swelling (rt knee swelling has decreased, decreased warmth and tenderness) Edema: No Labs: CBC, BMP 12/19/16 06:00 12/20/16 06:15 Problem List - Problems (1) Asthma with COPD Code(s): J44.9 - CHRONIC OBSTRUCTIVE PULMONARY DISEASE, UNSPECIFIED J45.909 - UNSPECIFIED ASTHMA, UNCOMPLICATED (2) Shortness of breath Code(s): R06.02 - SHORTNESS OF BREATH (3) Bacteremia Code(s): R78.81 - BACTEREMIA (4) HTN (hypertension) Code(s): I10 - ESSENTIAL (PRIMARY) HYPERTENSION Qualifiers: Hypertension type: essential hypertension Qualified Code(s): I10 - Essential (primary) hypertension Assessment/Plan PLAN antibiotics dc cultures negative likely contaminant all follow ups noted steroid taper possible dc tomorrow
[2016-12-20] MEDS: AMITRIPTYLINE HCL 25 MG TABLET (FP) PO SCH (22:13)
[2016-12-20] MEDS: methylPREDNISolone NA SUCC 125 MG/2 ML VIAL IVPB SCH (22:13)
[2016-12-20] MEDS: ATORVASTATIN CA 10 MG TABLET (FP) PO SCH (22:13)
[2016-12-21] MEDS: ALBUTEROL SO4 0.083% IH SOL 2.5 MG/3 ML VIAL.NEB. NEB SCH ×2 (06:00→14:48)
[2016-12-21] MEDS ORDERED: PT OWN MED DRAWER 7, Y5N ONE (09:42)
[2016-12-21] MEDS: PANTOPRAZOLE 40 MG TABLET (FP) PO SCH (09:53)
[2016-12-21] MEDS: ASPIRIN 81 MG CHEWABLE TABLETS PO SCH (09:54)
[2016-12-21] MEDS: ENOXAPARIN NA (PORCINE) 40 MG/0.4 ML DISP.SYRIN SQ SCH (09:54)
[2016-12-21] MEDS: methylPREDNISolone NA SUCC 125 MG/2 ML VIAL IVPB SCH (09:54)
[2016-12-21] MEDS: ROFLUMILAST 500 MCG TABLET PO SCH (09:54)
[2016-12-21] MEDS: TIOTROPIUM BROMIDE 18 MCG/INH (DEVICE W/ 5 CAPSULES) IH SCH (09:55)
--- NOTE | 2016-12-21 11:27 | PN ---
Progress Note, Physician Chief Complaint: feels better decreased SOB - Current Medication List Current Medications: Active Medications Acetaminophen (Tylenol -) 325 mg PO Q6H PRN PRN Reason: PAIN Last Admin: 12/20/16 14:33 Dose: 325 mg Acetaminophen (Tylenol -) 1,000 mg PO Q8H PRN PRN Reason: HEADACHE Albuterol Sulfate (Ventolin 0.083% Nebulizer Soln -) 1 amp NEB Q6H PRN PRN Reason: SHORT OF BREATH/WHEEZING Albuterol Sulfate (Ventolin Hfa Inhaler -) 2 puff IH Q4H PRN PRN Reason: DIFFICULTY BREATHING Albuterol Sulfate (Ventolin 0.083% Nebulizer Soln -) 1 amp NEB TIDR [facility] Last Admin: 12/21/16 06:00 Dose: Not Given Amitriptyline HCl (Elavil -) 25 mg PO HS [facility] Last Admin: 12/20/16 22:13 Dose: 25 mg Aspirin (Asa -) 81 mg PO DAILY [facility] Last Admin: 12/21/16 09:54 Dose: 81 mg Atorvastatin Calcium (Lipitor -) 10 mg PO HS [facility] Last Admin: 12/20/16 22:13 Dose: 10 mg Budesonide/Formoterol Fumarate (Symbicort 160/4.5mcg -) 2 puff IH BID [facility] Last Admin: 12/20/16 22:13 Dose: Not Given Clonazepam (Klonopin -) 0.5 mg PO Q6H PRN PRN Reason: ANXIETY Diltiazem HCl (Cardizem Cd -) 180 mg PO DAILY [facility] Last Admin: 12/21/16 09:54 Dose: 180 mg Enoxaparin Sodium (Lovenox -) 40 mg SQ DAILY [facility] Last Admin: 12/21/16 09:54 Dose: 40 mg Methylprednisolone Sodium Succinate (Solu-Medrol -) 60 mg IVPB BID [facility] Last Admin: 12/21/16 09:54 Dose: 60 mg Oxycodone HCl (Roxicodone -) 5 mg PO Q6H PRN PRN Reason: PAIN Last Admin: 12/20/16 14:34 Dose: 5 mg Pantoprazole Sodium (Protonix -) 40 mg PO DAILY [facility] Last Admin: 12/21/16 09:53 Dose: 40 mg Polyethylene Glycol (Miralax (For Daily Use) -) 17 gm PO BID PRN PRN Reason: CONSTIPATION Roflumilast (Daliresp -) 500 mcg PO DAILY [facility] Last Admin: 12/21/16 09:54 Dose: 500 mcg Tiotropium [place] (Spiriva -) 1 puff IH DAILY [facility] Last Admin: 12/21/16 09:55 Dose: 1 puff - Objective Vital Signs: Vital Signs Temperature 98.5 F 12/21/16 06:23 Pulse Rate 89 12/21/16 06:23 Respiratory Rate 20 12/21/16 06:23 Blood Pressure 145/77 12/21/16 06:23 O2 Sat by Pulse Oximetry (%) 96 12/20/16 21:00 Constitutional: Yes: No Distress Cardiovascular: Yes: Regular Rate and Rhythm Respiratory: Yes: Diminished, Rhonchi (decreased) Gastrointestinal: Yes: Normal Bowel Sounds, Soft. No: Tenderness Edema: No Labs: CBC, BMP 12/19/16 06:00 12/20/16 06:15 Problem List - Problems (1) Asthma with COPD Code(s): J44.9 - CHRONIC OBSTRUCTIVE PULMONARY DISEASE, UNSPECIFIED J45.909 - UNSPECIFIED ASTHMA, UNCOMPLICATED (2) Shortness of breath Code(s): R06.02 - SHORTNESS OF BREATH (3) Bacteremia Code(s): R78.81 - BACTEREMIA (4) HTN (hypertension) Code(s): I10 - ESSENTIAL (PRIMARY) HYPERTENSION Qualifiers: Hypertension type: essential hypertension Qualified Code(s): I10 - Essential (primary) hypertension Assessment/Plan PLAN antibiotics dc cultures negative likely contaminant steroid taper possible dc today pending O2 she does not have o2 at home- had qualified it at [employer] office- due to change in insurance, she had to return it she states that she needs O2 portable when she ambulates
--- NOTE | 2016-12-21 12:10 | PN ---
Progress Note, Physician History of Present Illness: PULMONARY ALERT,FEELING BETTER,LESS DYSPNEIC - Current Medication List Current Medications: Active Medications Acetaminophen (Tylenol -) 325 mg PO Q6H PRN PRN Reason: PAIN Last Admin: 12/20/16 14:33 Dose: 325 mg Acetaminophen (Tylenol -) 1,000 mg PO Q8H PRN PRN Reason: HEADACHE Albuterol Sulfate (Ventolin 0.083% Nebulizer Soln -) 1 amp NEB Q6H PRN PRN Reason: SHORT OF BREATH/WHEEZING Albuterol Sulfate (Ventolin Hfa Inhaler -) 2 puff IH Q4H PRN PRN Reason: DIFFICULTY BREATHING Albuterol Sulfate (Ventolin 0.083% Nebulizer Soln -) 1 amp NEB TIDR [facility] Last Admin: 12/21/16 06:00 Dose: Not Given Amitriptyline HCl (Elavil -) 25 mg PO HS [facility] Last Admin: 12/20/16 22:13 Dose: 25 mg Aspirin (Asa -) 81 mg PO DAILY [facility] Last Admin: 12/21/16 09:54 Dose: 81 mg Atorvastatin Calcium (Lipitor -) 10 mg PO HS [facility] Last Admin: 12/20/16 22:13 Dose: 10 mg Budesonide/Formoterol Fumarate (Symbicort 160/4.5mcg -) 2 puff IH BID [facility] Last Admin: 12/20/16 22:13 Dose: Not Given Clonazepam (Klonopin -) 0.5 mg PO Q6H PRN PRN Reason: ANXIETY Diltiazem HCl (Cardizem Cd -) 180 mg PO DAILY [facility] Last Admin: 12/21/16 09:54 Dose: 180 mg Enoxaparin Sodium (Lovenox -) 40 mg SQ DAILY [facility] Last Admin: 12/21/16 09:54 Dose: 40 mg Oxycodone HCl (Roxicodone -) 5 mg PO Q6H PRN PRN Reason: PAIN Last Admin: 12/20/16 14:34 Dose: 5 mg Pantoprazole Sodium (Protonix -) 40 mg PO DAILY [facility] Last Admin: 12/21/16 09:53 Dose: 40 mg Polyethylene Glycol (Miralax (For Daily Use) -) 17 gm PO BID PRN PRN Reason: CONSTIPATION Prednisone (Deltasone -) 40 mg PO DAILY [facility] Roflumilast (Daliresp -) 500 mcg PO DAILY [facility] Last Admin: 12/21/16 09:54 Dose: 500 mcg Tiotropium [place] (Spiriva -) 1 puff IH DAILY [facility] Last Admin: 12/21/16 09:55 Dose: 1 puff - Objective Vital Signs: Vital Signs Temperature 97.6 F 12/21/16 10:00 Pulse Rate 80 12/21/16 10:00 Respiratory Rate 20 12/21/16 10:00 Blood Pressure 135/68 12/21/16 10:00 O2 Sat by Pulse Oximetry (%) 96 12/21/16 09:00 Constitutional: Yes: Well Nourished, Calm Eyes: Yes: WNL HENT: Yes: WNL Neck: Yes: WNL Cardiovascular: Yes: Regular Rate and Rhythm, S1, S2 Respiratory: Yes: CTA Bilaterally Gastrointestinal: Yes: Normal Bowel Sounds, Soft Extremities: Yes: WNL Edema: No Assessment/Plan Problem List - Problems (1) Asthma with COPD Code(s): J44.9 - CHRONIC OBSTRUCTIVE PULMONARY DISEASE, UNSPECIFIED J45.909 - UNSPECIFIED ASTHMA, UNCOMPLICATED (2) COPD (chronic obstructive pulmonary disease) with acute bronchitis Code(s): J44.0 - CHRONIC OBSTRUCTIVE PULMON DISEASE W ACUTE LOWER RESP INFCT (3) COPD exacerbation Code(s): J44.1 - CHRONIC OBSTRUCTIVE PULMONARY DISEASE W (ACUTE) EXACERBATION (4) H/O ventral hernia repair Code(s): Z98.89 - OTHER SPECIFIED POSTPROCEDURAL STATES * DO NOT USE * Z87.19 - PERSONAL HISTORY OF OTHER DISEASES OF THE DIGESTIVE SYSTEM (5) HTN (hypertension) Code(s): I10 - ESSENTIAL (PRIMARY) HYPERTENSION (6) Thyromegaly Code(s): E04.9 - NONTOXIC GOITER, UNSPECIFIED (7) Wheezing Code(s): R06.2 - WHEEZING Assessment/Plan Spiriva LABA/ICS BD TX ABX per ID VTE prophylaxis No smoking Prednsione D/C planning CHECK O2 SAT AT REST AND POST EXERCISE ON RA DR COLBERT Problem List - Problems (1) Asthma with COPD Code(s): J44.9 - CHRONIC OBSTRUCTIVE PULMONARY DISEASE, UNSPECIFIED J45.909 - UNSPECIFIED ASTHMA, UNCOMPLICATED (2) COPD (chronic obstructive pulmonary disease) with acute bronchitis Code(s): J44.0 - CHRONIC OBSTRUCTIVE PULMON DISEASE W ACUTE LOWER RESP INFCT (3) COPD exacerbation Code(s): J44.1 - CHRONIC OBSTRUCTIVE PULMONARY DISEASE W (ACUTE) EXACERBATION (4) H/O ventral hernia repair Code(s): Z98.89 - OTHER SPECIFIED POSTPROCEDURAL STATES * DO NOT USE * Z87.19 - PERSONAL HISTORY OF OTHER DISEASES OF THE DIGESTIVE SYSTEM (5) HTN (hypertension) Code(s): I10 - ESSENTIAL (PRIMARY) HYPERTENSION Qualifiers: Hypertension type: essential hypertension Qualified Code(s): I10 - Essential (primary) hypertension (6) Thyromegaly Code(s): E04.9 - NONTOXIC GOITER, UNSPECIFIED (7) Wheezing Code(s): R06.2 - WHEEZING
[2016-12-21] MEDS: BUDESONIDE/FORMETEROL FUMARATE 160/4.5 mcg INHALER IH SCH (13:13)
[2016-12-21 14:28] VITALS: BP 133/81
[2016-12-21 14:45] VITALS: PULSE 100; TEMP 97.9
[2016-12-22] MEDS ORDERED: predniSONE 20 MG TABLET (UD) PO SCH (10:00)
[2016-12-22] MEDS ORDERED: methylPREDNISolone NA SUCC 125 MG/2 ML VIAL IVPB SCH (10:00)
--- NOTE | 2017-02-20 20:47 | DS ---
Physical Examination Vital Signs: Vital Signs Temperature 97.9 F 12/21/16 14:36 Pulse Rate 100 H 12/21/16 14:36 Respiratory Rate 20 12/21/16 14:36 Blood Pressure 133/81 12/21/16 13:30 O2 Sat by Pulse Oximetry (%) 95 12/21/16 14:12 Labs: CBC, BMP 12/19/16 06:00 12/20/16 06:15 Discharge Summary Reason For Visit: SHORTNESS OF BREATH Current Active Problems Asthma with COPD (Acute) Hospital Course: admitted for copd exacerbation, bacteremia-- seen by ID and Pulmonary On Iv antibiotics and solumedrol Pt better Needs O2 blood cultures that were positive likely a contaminant stable for dc home Condition: Stable - Instructions Referrals: Cristal Ludwig MD [Primary Care Provider] - Disposition: HOME - Home Medications Comprehensive Discharge Medication List: Ambulatory Orders Atorvastatin Ca [Lipitor] 10 mg PO HS 06/24/15 Roflumilast [Daliresp] 500 mcg PO DAILY 06/24/15 Tiotropium [place] [Spiriva] 1 inh PO DAILY 06/24/15 Aspirin [ASA -] 81 mg PO DAILY 03/21/16 Cholecalciferol (Vitamin D3) [Vitamin D -] 400 unit PO DAILY tablet 03/28/16 Cyanocobalamin [Vitamin B12 -] 1,000 mcg PO DAILY tablet 03/28/16 Diltiazem Cd [Cardizem Cd -] 180 mg PO DAILY #60 cap.cd.24h 06/08/16 Amitriptyline HCl [Elavil -] 25 mg PO HS 09/23/16 Pantoprazole Sodium [Protonix -] 40 mg PO DAILY tablet.ec 09/26/16 Clonazepam [Klonopin -] 0.5 mg PO PRN PRN 11/23/16 [place]-3 Fatty Acids [Fish Oil] 300 mg PO DAILY 11/23/16 Salmeterol/Fluticasone [Advair 500Mcg/50Mcg -] 1 inh PO BID 11/23/16 Albuterol Sulfate Inhaler - [Ventolin HFA Inhaler -] 1 - 2 inh PO Q4H PRN #1 inhaler 12/11/16 Albuterol Sulfate [Proventil HFA Inhaler -] 2 inh PO QID #1 inhaler 12/21/16 Prednisone 10 mg PO DAILY #90 tablet 12/21/16
== END 2016-12-21 15:45 | disposition home or self-care (01) | DRG 192 ==
LOC: SUPCPDRO 09:36 → JER 09:36 → JERBED 13:30 → J8W 15:29
PROVIDERS: ADMIT Internal Medicine; ATTEND Internal Medicine
DX: J44.0 Chronic obstructive pulmonary disease with (acute) lower respiratory infection (principal); J44.1 Chronic obstructive pulmonary disease with (acute) exacerbation; K21.9 Gastro-esophageal reflux disease without esophagitis; R00.0 Tachycardia, unspecified; Z87.891 Personal history of nicotine dependence; I10 Essential (primary) hypertension; J45.909 Unspecified asthma, uncomplicated
CPT/HCPCS: 36415; 71020-TC; 71260-TC; 73560-TC-RT; 80048; 80053; 83735; 84443; 85025; 85379; 85651; 86140; 87040; 93005; 93010; 93306-TC; 94640; 94761; 99283-25

== ENCOUNTER 2017-04-15 15:36 | Inpatient (IN) | payer OTHER, BC ==
[2017-04-15 15:47] VITALS: BMI 30.8
--- NOTE | 2017-04-15 16:52 | PDOC ---
History of Present Illness <John Lui - Last Filed: 04/15/17 20:30> - General History Source: Patient Exam Limitations: No Limitations - History of Present Illness Initial Comments: 04/15/17 17:40 The patient is a 56 year old female with a significant past medical history of HTN, HLD, borderline diabetes, COPD, GERD, and thyroid disease who presents to the ED with complaints of right knee pain for 3 days and wheezing since yesterday. The patient reports she was walking aggressively on and she developed right sided knee pain later on that day. Patient states she is unable to lift her right knee and is walking with a limp. She states her right knee feels similar to how it felt prior to her right meniscal repair in November 2016. She reports taking tylenol for her knee pain with slight relief. Patient also states she developed wheezing yesterday afternoon secondary to being exposed to secondhand smoke from her son. She notes her voice becomes airy and wheezy and is alleviated when she drinks water and coughs. She reports taking albuterol with slight relief of her wheezing. Patient also reports visiting an ENT for her change in voice and was prescribed protonix several weeks ago. Patient states she typically gets COPD exacerbations with a change in voice once a month and requires prednisone and steroid treatment. Patient typically walks half a block before becoming short of breath at her baseline. Denies fevers or chills. Denies chest pain or palpitations. Denies cough. Denies dysuria or changes in urinary output. Denies abdominal pain, nausea, vomiting, or diarrhea. Denies any other symptoms. Allergies: Penicillin, Sulfonamide (hives) Surgical hx: knee surgery (11/23/16), uterus polyp removal. Umbilical hernia repair. Right foot bunion removal. Social hx: Former smoker (quit 2011). Exposed to secondhand smoking by her son. No ETOH or recreational drug use. PCP: Dr. Tina. Ludwig ENT: Dr. Perez <Wanda English - Last Filed: 04/15/17 20:35> - General Chief Complaint: Respiratory Stated Complaint: SOB, RT KNEE PAIN Time Seen by Provider: 04/15/17 16:09 Past History - Past Medical History Anemia: No Asthma: Yes Cancer: No Cardiac Disorders: Yes (TACHY) CVA: No COPD: Yes CHF: No Dementia: No Diabetes: (BORDERLINE) GI Disorders: Yes (GERD) Disorders: No HTN: Yes Hypercholesterolemia: Yes Liver Disease: No Suicide Attempt (Hx): No Seizures: No Thyroid Disease: Yes (NODULES) - Surgical History Abdominal Surgery: Yes (POLYP REMOVED FROM UTERUS 09/06/13) Appendectomy: No Cardiac Surgery: No Cholecystectomy: No GI Surgery: Yes (umbilical hernia/wound vac) Lung Surgery: No Neurologic Surgery: No Orthopedic Surgery: Yes (BUNION REMOVAL RT FOOT 2014) - Immunization History Immunization Up to Date: Yes - Psycho/Social/Smoking Cessation Hx Anxiety: No Suicidal Ideation: No Smoking Status: Yes Smoking History: Former smoker Have you smoked in the past 12 months: No Number of Cigarettes Smoked Daily: 0 If you are a former smoker, when did you quit?: 5 YRS Information on smoking cessation initiated: No 'Breaking Loose' booklet given: 10/28/13 Hx Alcohol Use: No Drug/Substance Use Hx: No Substance Use Type: None Hx Substance Use Treatment: No <John Lui - Last Filed: 04/15/17 20:30> <Wanda English - Last Filed: 04/15/17 20:35> - Past Medical History Allergies/Adverse Reactions: Allergies Allergy/AdvReac Type Severity Reaction Status Date / Time Penicillins Allergy Hives Verified 04/15/17 15:48 Sulfa (Sulfonamide Allergy Hives Verified 04/15/17 15:48 Antibiotics) [Sulfa(Sulfonamide Antibiotics)] Home Medications: Ambulatory Orders Atorvastatin Ca [Lipitor] 10 mg PO HS 06/24/15 Roflumilast [Daliresp] 500 mcg PO DAILY 06/24/15 Tiotropium [place] [Spiriva] 1 inh PO DAILY 06/24/15 Aspirin [ASA -] 81 mg PO DAILY 03/21/16 Cholecalciferol (Vitamin D3) [Vitamin D -] 400 unit PO DAILY tablet 03/28/16 Cyanocobalamin [Vitamin B12 -] 1,000 mcg PO DAILY tablet 03/28/16 Diltiazem Cd [Cardizem Cd -] 180 mg PO DAILY #60 cap.cd.24h 06/08/16 Amitriptyline HCl [Elavil -] 25 mg PO HS 09/23/16 Clonazepam [Klonopin -] 0.5 mg PO PRN PRN 11/23/16 [place]-3 Fatty Acids [Fish Oil] 300 mg PO DAILY 11/23/16 Salmeterol/Fluticasone [Advair 500Mcg/50Mcg -] 1 inh PO BID 11/23/16 Albuterol Sulfate Inhaler - [Ventolin HFA Inhaler -] 1 - 2 inh PO Q4H PRN #1 inhaler 12/11/16 Famotidine [Pepcid] 40 mg PO HS 04/15/17 Review of Systems - Review of Systems Constitutional: No: Chills, Fever HEENTM: No: Nose Congestion, Throat Pain Respiratory: Yes: Wheezing. No: Cough, SOB with Exertion Cardiac (ROS): No: Chest Pain, Edema, Palpitations ABD/GI: No: Nausea, Vomiting Musculoskeletal: Yes: Joint Pain Neurological: No: Tingling, Weakness All Other Systems: Reviewed and Negative <John Lui - Last Filed: 04/15/17 20:30> *Physical Exam - Vital Signs Last Vital Signs Temp Pulse Resp BP Pulse Ox 98.1 F 95 H 20 116/76 98 04/15/17 15:42 04/15/17 15:42 04/15/17 15:42 04/15/17 15:42 04/15/17 15:42 <John Lui - Last Filed: 04/15/17 20:30> - Vital Signs Last Vital Signs Temp Pulse Resp BP Pulse Ox 98.1 F 95 H 20 116/76 98 04/15/17 15:42 04/15/17 15:42 04/15/17 15:42 04/15/17 15:42 04/15/17 15:42 - Physical Exam Comments: 04/15/17 17:41 GENERAL: The patient is awake, alert, and fully oriented, in no acute distress. HEAD: Normal with no signs of trauma. EYES: Pupils equal, round and reactive to light, extraocular movements intact, sclera anicteric, conjunctiva clear with no pallor. ENT: Ears normal, nares patent, oropharynx clear without exudates. Moist mucous membranes. NECK: Normal range of motion, supple without lymphadenopathy, JVD, or masses. LUNGS:+ Moderate air entry but symmetric. Diffuse inspiratory and expiratory wheezing no prolonged expiration. HEART: Regular rate and rhythm, normal S1 and S2 without murmur or rub. ABDOMEN: Soft/nontender/nondistended. BS wnl. No guarding or rebound. No palpable masses. No hepatosplenomegaly. EXTREMITIES: + no gross swelling edema or warmth. Right extensor mechanism is intact, no focal bony tenderness, right knee is stable on anterior and posterior valgus stress test with some reproducible discomfort on palpation to the medial joint space. NEUROLOGICAL: Cranial nerves II through XII grossly intact. Normal speech, normal gait. PSYCH: Normal mood, normal affect. SKIN: Warm, Dry, normal turgor, no rashes or lesions noted. <Wanda English - Last Filed: 04/15/17 20:35> Heart Score/ECG Review #1 ECG reviewed & interpreted by me at: 18:05 General ECG Interpretation: Sinus Rhythm, Normal Rate (91), Normal Intervals ( qtc 432), No acute ischemic changes (Q in III/AVF without acute ST change) Compared to previous ECG there are: No significant change (c/w 12/17/16, including inferior Q waves) <John Lui - Last Filed: 04/15/17 20:30> ED Treatment Course - LABORATORY CBC & Chemistry Diagram: 04/15/17 17:25 04/15/17 17:25 - RADIOLOGY Radiology Studies Ordered: Category Date Time Status CHEST X-RAY PORTABLE* [RAD] Stat Radiology 04/15/17 16:49 Ordered <John Lui - Last Filed: 04/15/17 20:30> - LABORATORY CBC & Chemistry Diagram: 04/15/17 17:25 04/15/17 17:25 - RADIOLOGY Radiograph Interpretation: 04/15/17 20:33 RAD/CHEST X-RAY PORTABLE Impression: Since 12/17/16 there is no significant change in no sign of an acute process. The lungs are clear. The mediastinum is not widened. There is minimal chin artifact. A CT scan from 12/17/16 showed centrilobular emphysema. Reported by: Alin Stewart <Wanda English - Last Filed: 04/15/17 20:35> Medical Decision Making - Medical Decision Making 04/15/17 17:27 56y/o F h/o COPD, h/o R meniscal tear s/p arthroscopy 12/[address] presents with COPD exacerbation characterized by increased wheezing for 2 days - she attributes to her child smoking in the house, denies any new cough/f/c/ GONCALVES. Took albuterol pump with temporary relief, presents here for nebulizer and because she expects she needs steroids, which she takes about 1x/month - last round in February. Also with atraumatic R medial knee pain that began after some aggressive walking 2d ago. no swelling, no sensory deficit. Took tylenol with minimal relief. Pain feels like her meniscal tear pain pre-november. VSS, o2 sat normal seated in stretcher speaking full sentences, no distress, joking with staff no jvd s1s2 rrr, no m diffuse insp/exp wheeze without focally decreased BS or accessory muscle use abd soft RLE: no edema, focal ttp medial R knee joint space worse with valgus/varus stress. stable otherwise, nvi. no calf ttp 56y/o F with frequently recurring COPD exacerbations p/w same, likely 2/2 irritants as there is no evidence of acute infectious process. Also with atraumatic R knee strain, ? meniscal, less likely fracture. NVI. labs, ekg, cxr nebs, steroids trial of nsaid, R knee xray reassess/dispo 04/15/17 20:25 labs wnl, cxr normal. O2 sat wnl but patient still subjectively SOB. on exam. inspiratory wheezes resolved but persistent expiratory wheeze, become more tachypneic with exertion though preserves O2 sat. Will continue nebs and monitor respirations overnight. Dr. Ludwig called for observation placement. 04/15/17 20:30 Accepted for obs med/surg by Dr. Ludwig. 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 <John Lui - Last Filed: 04/15/17 20:30> - Medical Decision Making 04/15/17 20:[address] Ludwig at 20:29. <Wanda English - Last Filed: 04/15/17 20:35> *DC/Admit/Observation/Transfer - Discharge Dispostion Admit: Yes <John Lui - Last Filed: 04/15/17 20:30> - Attestations Scribe Attestion: 04/15/17 17:41 Documentation prepared by Wanda English, acting as medical record assistant for John Lui MD <Wanda English - Last Filed: 04/15/17 20:35> Diagnosis at time of Disposition: COPD exacerbation Strain of right knee Qualifiers: Encounter type: initial encounter Qualified Code(s): S86.911A - Strain of unspecified muscle(s) and tendon(s) at lower leg level, right leg, initial encounter - Referrals Referrals: Cristal Ludwig MD [Primary Care Provider] -
[2017-04-15] MEDS ORDERED: IBUPROFEN 600 MG TABLET (FP) PO ONE ×2 (17:18→18:28)
[2017-04-15] MEDS ORDERED: methylPREDNISolone NA SUCC 125 MG/2 ML VIAL IVPB ONE (17:18)
[2017-04-15 17:55] LABS: BASOPHIL 0.9 % (0-2.0); EOSINOPHIL 2.2 % (0-4.5); MCH 29.1 pg (25.7-33.7); MCHC 33.1 g/dl (32.0-36.0); MEAN CELL VOLUME 88.1 fl (80-96); MEAN PLT VOLUME 7.6 fl (7.5-11.1); PLATELET COUNT 302 K/MM3 (134-434); RDW 15.6 % (11.6-15.6); WHITE BLOOD COUNT 7.9 K/mm3 (4.0-10.0)
[2017-04-15 18:22] LABS: ALK PHOS 112 U/L (45-117); ANION GAP 10 (8-16); BILIRUBIN,TOTAL 0.9 mg/dL (0.2-1.0); CALCIUM 9.8 mg/dL (8.5-10.1); CO2 27 mmol/L (21-32); CREATININE 0.7 mg/dL (0.55-1.02); GLUCOSE,RANDOM 90 mg/dL (74-106); SGOT/AST 16 U/L (15-37); SGPT/ALT 22 U/L (12-78); TOT PROT 7.1 g/dl (6.4-8.2)
[2017-04-15] MEDS ORDERED: methylPREDNISolone NA SUCC 125 MG/2 ML VIAL ONE (18:29)
[2017-04-15] MEDS ORDERED: ALBUTEROL SO4 2.5/IPRATROPIUM 0.5 INH SOL 3 ML VIAL.NEB. NEB ONE ×3 (18:29→21:32)
[2017-04-15] MEDS: ALBUTEROL SO4 2.5/IPRATROPIUM 0.5 INH SOL 3 ML VIAL.NEB. NEB SCH ×2 (18:35→19:01)
[2017-04-15 19:44] LABS: CPK 120 IU/L (26-192); TROPONIN I < 0.02 ng/ml (0.00-0.05)
[2017-04-15] MEDS ORDERED: ALBUTEROL SO4 2.5/IPRATROPIUM 0.5 INH SOL 3 ML VIAL.NEB. NEB PRN (23:24)
[2017-04-15] MEDS ORDERED: clonazePAM 0.5 MG TABLET PO PRN (23:25)
[2017-04-16] MEDS ORDERED: oxyCODONE HCL 5 MG TABLET ONE (00:09)
[2017-04-16] MEDS ORDERED: ACETAMINOPHEN 325 MG TABLET (FP) ONE (00:09)
[2017-04-16] MEDS: AMITRIPTYLINE HCL 25 MG TABLET (FP) PO SCH ×2 (00:11→21:35)
[2017-04-16] MEDS: ATORVASTATIN CA 10 MG TABLET (FP) PO SCH ×2 (00:12→21:35)
[2017-04-16] MEDS: methylPREDNISolone NA SUCC 40 MG/1 ML VIAL IVPB SCH ×3 (02:27→17:45)
[2017-04-16] MEDS: ACETAMINOPHEN 325 MG TABLET (FP) PO PRN ×3 (06:33→21:35)
[2017-04-16] MEDS: oxyCODONE HCL 5 MG TABLET PO PRN ×3 (06:33→21:35)
[2017-04-16 07:42] LABS: BASOPHIL 0.2 % (0-2.0); MCH 29.1 pg (25.7-33.7); MCHC 32.9 g/dl (32.0-36.0); MEAN CELL VOLUME 88.3 fl (80-96); MEAN PLT VOLUME 7.5 fl (7.5-11.1); NEUTROPHILS 88.2 % (42.8-82.8); PLATELET COUNT 283 K/MM3 (134-434); WHITE BLOOD COUNT 6.1 K/mm3 (4.0-10.0)
[2017-04-16 08:19] LABS: ALBUMIN 3.4 g/dl (3.4-5.0); ANION GAP 9 (8-16); CALCIUM 9.6 mg/dL (8.5-10.1); CO2 25 mmol/L (21-32); GLUCOSE,RANDOM 143 mg/dL (74-106)
[2017-04-16 08:22] LABS: ALK PHOS 99 U/L (45-117); BILIRUBIN,TOTAL 0.7 mg/dL (0.2-1.0); CREATININE 0.7 mg/dL (0.55-1.02); SGOT/AST 10 U/L (15-37); SGPT/ALT 20 U/L (12-78); TOT PROT 6.3 g/dl (6.4-8.2)
[2017-04-16] MEDS ORDERED: ACLIDINIUM BROMIDE 400 MCG/INH AERO.POWD IH SCH (10:00)
[2017-04-16] MEDS ORDERED: BUDESONIDE/FORMETEROL FUMARATE 160/4.5 mcg INHALER IH SCH (10:00)
--- NOTE | 2017-04-16 10:01 | HP ---
Admitting History and Physical - Primary Care Physician PCP: Cristal Ludwig - Admission Chief Complaint: copd History of Present Illness: ER HISTORY - History of Present Illness Initial Comments: 04/15/17 17:40 The patient is a 56 year old female with a significant past medical history of HTN, HLD, borderline diabetes, COPD, GERD, and thyroid disease who presents to the ED with complaints of right knee pain for 3 days and wheezing since yesterday. The patient reports she was walking aggressively on and she developed right sided knee pain later on that day. Patient states she is unable to lift her right knee and is walking with a limp. She states her right knee feels similar to how it felt prior to her right meniscal repair in November 2016. She reports taking tylenol for her knee pain with slight relief. Patient also states she developed wheezing yesterday afternoon secondary to being exposed to secondhand smoke from her son. She notes her voice becomes airy and wheezy and is alleviated when she drinks water and coughs. She reports taking albuterol with slight relief of her wheezing. Patient also reports visiting an ENT for her change in voice and was prescribed protonix several weeks ago. Patient states she typically gets COPD exacerbations with a change in voice once a month and requires prednisone and steroid treatment. Patient typically walks half a block before becoming short of breath at her baseline. Denies fevers or chills. Denies chest pain or palpitations. Denies cough. Denies dysuria or changes in urinary output. Denies abdominal pain, nausea, vomiting, or diarrhea. Denies any other symptoms. Pt examined by me on the floors 3 days of SOB and cough No fever or chills Also has been having right knee pain-s/p arthroscopy- after ambulating [place] the [place] a few days ago.Denies sick contacts. Frequently gets COPD exacerbations and treated with Prednisone and nebs. History Source: Patient Limitations to Obtaining History: No Limitations - Past Medical History Cardiovascular: Yes: HTN Pulmonary: Yes: COPD Gastrointestinal: Yes: Other (HERNIA REPAIR WITH COMPLICATIONS AND POST OP SBO) ...LMP: 08/04/13 Heme/Onc: Yes: B12 Deficiency Psych: Yes: Anxiety - Past Surgical History Past Surgical History: Yes: Hernia Repair - Smoking History Smoking history: Former smoker Have you smoked in the past 12 months: No Aproximately how many cigarettes per day: 0 If you are a former smoker, when did you quit?: 5 YRS - Alcohol/Substance Use Hx Alcohol Use: No Home Medications - Allergies Allergies/Adverse Reactions: Allergies Allergy/AdvReac Type Severity Reaction Status Date / Time Penicillins Allergy Hives Verified 04/15/17 15:48 Sulfa (Sulfonamide Allergy Hives Verified 04/15/17 15:48 Antibiotics) [Sulfa(Sulfonamide Antibiotics)] - Home Medications Home Medications: Ambulatory Orders Atorvastatin Ca [Lipitor] 10 mg PO HS 06/24/15 Roflumilast [Daliresp] 500 mcg PO DAILY 06/24/15 Tiotropium [place] [Spiriva] 1 inh PO DAILY 06/24/15 Aspirin [ASA -] 81 mg PO DAILY 03/21/16 Cyanocobalamin [Vitamin B12 -] 1,000 mcg PO DAILY tablet 03/28/16 Diltiazem Cd [Cardizem Cd -] 180 mg PO DAILY #60 cap.cd.24h 06/08/16 Amitriptyline HCl [Elavil -] 25 mg PO HS 09/23/16 Clonazepam [Klonopin -] 0.5 mg PO PRN PRN 11/23/16 [place]-3 Fatty Acids [Fish Oil] 300 mg PO DAILY 11/23/16 Salmeterol/Fluticasone [Advair 500Mcg/50Mcg -] 1 inh PO BID 11/23/16 Albuterol Sulfate Inhaler - [Ventolin HFA Inhaler -] 1 - 2 inh PO Q4H PRN #1 inhaler 12/11/16 Famotidine [Pepcid] 40 mg PO HS 04/15/17 Cholecalciferol (Vitamin D3) [Vitamin D3 -] 1,000 unit PO DAILY 04/16/17 Family Disease History - Family Disease History Family Disease History: CA: Father (Lung CA), Other: Mother (HTN) Review of Systems - Review of Systems Constitutional: denies: Chills, Fever Respiratory: reports: Cough, SOB Physical Examination Vital Signs: Vital Signs Temperature 97.9 F 04/16/17 06:00 Pulse Rate 91 H 04/16/17 06:00 Respiratory Rate 18 04/16/17 06:00 Blood Pressure 124/68 04/16/17 06:00 O2 Sat by Pulse Oximetry (%) 92 L 04/15/17 23:07 Constitutional: Yes: No Distress, Calm Cardiovascular: Yes: Regular Rate and Rhythm Respiratory: Yes: Diminished, Rhonchi Gastrointestinal: Yes: Normal Bowel Sounds, Soft. No: Distention, Tenderness Extremities: Yes: Other (right knee-- no warmth, not tender.slight swelling noted) Edema: Yes Edema: RLE: Trace Labs: CBC, BMP 04/16/17 06:30 04/16/17 06:30 Imaging - Results Chest X-ray: Image Reviewed (clear) EKG: Image Reviewed (NSR) Problem List - Problems (1) COPD exacerbation Code(s): J44.1 - CHRONIC OBSTRUCTIVE PULMONARY DISEASE W (ACUTE) EXACERBATION (2) Strain of right knee Code(s): S86.911A - STRAIN OF UNSP MUSC/TEND AT LOWER LEG LEVEL, RIGHT LEG, INIT Qualifiers: Encounter type: initial encounter Qualified Code(s): S86.911A - Strain of unspecified muscle(s) and tendon(s) at lower leg level, right leg, initial encounter (3) COPD (chronic obstructive pulmonary disease) Code(s): J44.9 - CHRONIC OBSTRUCTIVE PULMONARY DISEASE, UNSPECIFIED (4) HTN (hypertension) Code(s): I10 - ESSENTIAL (PRIMARY) HYPERTENSION Qualifiers: Hypertension type: essential hypertension Qualified Code(s): I10 - Essential (primary) hypertension Assessment/Plan PLAN spoke with Pulmonary continue current dose of Solumedrol nebs O2 as needed PT eval pain control continue with home meds DVT prophylaxis-- Heparin sc
--- NOTE | 2017-04-16 10:30 | CON.PULM ---
Consult Consult Specialty:: PULMONARY Referred by:: ZENA Reason for Consultation:: SOB/WHEEZE - History of Present Illness Chief Complaint: WHEEZES History of Present Illness: The patient is a 56 year old female with a significant past medical history of HTN, HLD, borderline diabetes, COPD, GERD, and thyroid disease who presents to the ED with complaints of right knee pain for 3 days and wheezing since yesterday. The patient reports she was walking aggressively on and she developed right sided knee pain later on that day. Patient also states she developed wheezing yesterday afternoon secondary to being exposed to secondhand smoke from her son. She notes her voice becomes airy and wheezy and is alleviated when she drinks water and coughs. She reports taking albuterol with slight relief of her wheezing. Patient also reports visiting an ENT for her change in voice and was prescribed protonix several weeks ago. Patient states she typically gets COPD exacerbations with a change in voice once a month and requires prednisone and steroid treatment. 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 No: AFIB Pulmonary: Yes: COPD. No: O2 Dependent Gastrointestinal: Yes: Other (HERNIA REPAIR WITH COMPLICATIONS AND POST OP SBO) . No: Ascites Hepatobiliary: No: Cirrhosis Renal/: No: Renal Failure Reproductive: Yes: Postmenopausal ...LMP: 08/04/13 Heme/Onc: No: Anemia Infectious Disease: No: AIDS Psych: Yes: Anxiety Musculoskeletal: Yes: Osteoarthritis, Other (KNEE SURGERY) Rheumatology: Yes: Other (OSTEOARTHRITIS) Endocrine: No: [place]'s Disease - Past Surgical History Past Surgical History: Yes: Hernia Repair - Alcohol/Substance Use Hx Alcohol Use: No History of Substance Use: reports: None - Smoking History Smoking history: Former smoker Have you smoked in the past 12 months: No Aproximately how many cigarettes per day: 0 If you are a former smoker, when did you quit?: 5 YRS - Social History Place of : [facility] History of Recent Travel: No Home Medications - Allergies Allergies/Adverse Reactions: Allergies Allergy/AdvReac Type Severity Reaction Status Date / Time Penicillins Allergy Hives Verified 04/15/17 15:48 Sulfa (Sulfonamide Allergy Hives Verified 04/15/17 15:48 Antibiotics) [Sulfa(Sulfonamide Antibiotics)] - Home Medications Home Medications: Ambulatory Orders Atorvastatin Ca [Lipitor] 10 mg PO HS 06/24/15 Roflumilast [Daliresp] 500 mcg PO DAILY 06/24/15 Tiotropium [place] [Spiriva] 1 inh PO DAILY 06/24/15 Aspirin [ASA -] 81 mg PO DAILY 03/21/16 Cholecalciferol (Vitamin D3) [Vitamin D -] 400 unit PO DAILY tablet 03/28/16 Cyanocobalamin [Vitamin B12 -] 1,000 mcg PO DAILY tablet 03/28/16 Diltiazem Cd [Cardizem Cd -] 180 mg PO DAILY #60 cap.cd.24h 06/08/16 Amitriptyline HCl [Elavil -] 25 mg PO HS 09/23/16 Clonazepam [Klonopin -] 0.5 mg PO PRN PRN 11/23/16 [place]-3 Fatty Acids [Fish Oil] 300 mg PO DAILY 11/23/16 Salmeterol/Fluticasone [Advair 500Mcg/50Mcg -] 1 inh PO BID 11/23/16 Albuterol Sulfate Inhaler - [Ventolin HFA Inhaler -] 1 - 2 inh PO Q4H PRN #1 inhaler 12/11/16 Famotidine [Pepcid] 40 mg PO HS 04/15/17 Family Disease History - Family Disease History Family Disease History: CA: Father (Lung CA), Other: Mother (HTN) Review of Systems - Review of Systems Constitutional: denies: Fever Eyes: denies: Blurred Vision HENT: denies: Difficult Swallowing Neck: denies: Decreased ROM Cardiovascular: denies: Chest Pain Respiratory: reports: Exercise Intolerance, SOB on Exertion, Wheezing. denies: Hemoptysis, Orthopnea Gastrointestinal: denies: Abdominal Pain Musculoskeletal: reports: Other (KNEE PAIN) Physical Exam Vital Sings: Vital Signs Temperature 97.9 F 04/16/17 06:00 Pulse Rate 91 H 04/16/17 06:00 Respiratory Rate 18 04/16/17 06:00 Blood Pressure 124/68 04/16/17 06:00 O2 Sat by Pulse Oximetry (%) 92 L 04/15/17 23:07 Constitutional: Yes: Calm Eyes: Yes: EOM Intact HENT: Yes: Normocephalic Neck: Yes: Trachea Midline Cardiovascular: Yes: Regular Rate and Rhythm Respiratory: Yes: Wheezes Gastrointestinal: Yes: Normal Bowel Sounds, Abdomen, Obese Extremities: Yes: Other (DISCOMFORT KNEE) Psychiatric: Yes: WNL Labs: CBC, BMP 04/16/17 06:30 04/16/17 06:30 REST REVIEWED Imaging - Results Chest X-ray: Report Reviewed, Image Reviewed Cat Scan: Image Reviewed Problem List - Problems (1) COPD exacerbation Code(s): J44.1 - CHRONIC OBSTRUCTIVE PULMONARY DISEASE W (ACUTE) EXACERBATION (2) Strain of right knee Code(s): S86.911A - STRAIN OF UNSP MUSC/TEND AT LOWER LEG LEVEL, RIGHT LEG, INIT Qualifiers: Encounter type: initial encounter Qualified Code(s): S86.911A - Strain of unspecified muscle(s) and tendon(s) at lower leg level, right leg, initial encounter (3) Abscess of axilla, left Code(s): L02.412 - CUTANEOUS ABSCESS OF LEFT AXILLA Assessment/Plan A/E COPD KNEE STARIA O2 PRN BRONCHODILATORS/TERI/LABA/LAMA/ICS IV STEROIDS NO NEED FOR ABS DAILY PEAK FLOW PUD/DVT PROPHYLAXSIS WILL FOLLOW Ubaldo MALONEY MD
[2017-04-16] MEDS ORDERED: PT OWN MED DRAWER 7, Y5N ONE (10:43)
[2017-04-16] MEDS: PANTOPRAZOLE 40 MG TABLET (FP) PO SCH (10:51)
[2017-04-16] MEDS: ASPIRIN 81 MG CHEWABLE TABLETS PO SCH (10:51)
[2017-04-16] MEDS: ALBUTEROL SO4 2.5/IPRATROPIUM 0.5 INH SOL 3 ML VIAL.NEB. NEB SCH ×4 (11:14→22:07)
[2017-04-16] MEDS: CHOLECALCIFEROL (VITAMIN D3) 1,000 UNIT TABLET (FP) PO SCH (12:55)
[2017-04-16] MEDS: ROFLUMILAST 500 MCG TABLET PO SCH (13:19)
--- NOTE | 2017-04-16 20:42 | EKG ---
Test Reason : Blood Pressure : / mmHG Vent. Rate : 088 BPM Atrial Rate : 088 BPM P-R Int : 150 ms QRS Dur : 092 ms QT Int : 356 ms P-R-T Axes : 066 015 049 degrees QTc Int : 430 ms NORMAL SINUS RHYTHM WITH SINUS ARRHYTHMIA POSSIBLE LEFT ATRIAL ENLARGEMENT WHEN COMPARED WITH ECG OF 17-DEC-2016 10:38, NO SIGNIFICANT CHANGE WAS FOUND Confirmed by DAYANARA GRUBBS MD ([id number]) on 04/16/2017 8:41:41 PM Referred By: Confirmed By:DAYANARA GRUBBS MD
[2017-04-17] MEDS: methylPREDNISolone NA SUCC 40 MG/1 ML VIAL IVPB SCH ×3 (02:08→17:34)
[2017-04-17] MEDS: ALBUTEROL SO4 2.5/IPRATROPIUM 0.5 INH SOL 3 ML VIAL.NEB. NEB SCH ×6 (02:15→23:00)
[2017-04-17] MEDS ORDERED: PT OWN MED DRAWER 7, Y5N ONE (09:12)
[2017-04-17] MEDS: ACETAMINOPHEN 325 MG TABLET (FP) PO PRN ×2 (09:23→22:19)
[2017-04-17] MEDS: oxyCODONE HCL 5 MG TABLET PO PRN ×2 (09:25→22:25)
[2017-04-17] MEDS: PANTOPRAZOLE 40 MG TABLET (FP) PO SCH (09:29)
[2017-04-17] MEDS: ASPIRIN 81 MG CHEWABLE TABLETS PO SCH (09:29)
[2017-04-17] MEDS: HEPARIN NA (PORCINE) 5,000 UNITS/ML 1ML VIAL SQ SCH ×3 (09:30→22:23)
[2017-04-17] MEDS: ROFLUMILAST 500 MCG TABLET PO SCH (09:30)
[2017-04-17] MEDS: CHOLECALCIFEROL (VITAMIN D3) 1,000 UNIT TABLET (FP) PO SCH (09:31)
--- NOTE | 2017-04-17 09:33 | PN ---
Progress Note (short form) - Note Progress Note: pt seen/ examined chart reviewed feels same still sob- reports slight improvement Vital Signs Temp 98.1 F 04/16/17 18:16 Pulse 100 H 04/16/17 18:16 Resp 18 04/17/17 05:00 BP 135/78 04/16/17 18:16 Pulse Ox 94 L 04/17/17 05:00 Intake & Output 04/16/17 04/16/17 04/17/17 11:59 23:59 11:59 Intake Total 50 1110 100 Balance 50 1110 100 Intake: IVPB 50 150 100 Oral 960 Other: Voiding Method Toilet Toilet Toilet # Unmeasured Voids Void 1 2 Bowel Movement No Active Medications Acetaminophen (Tylenol -) 325 mg PO Q6H PRN PRN Reason: PAIN Last Admin: 04/17/17 09:23 Dose: 325 mg Albuterol/Ipratropium (Duoneb -) 1 amp NEB Q4H [facility] Last Admin: 04/17/17 06:35 Dose: 1 amp Amitriptyline HCl (Elavil -) 25 mg PO HS [facility] Last Admin: 04/16/17 21:35 Dose: 25 mg Aspirin (Asa -) 81 mg PO DAILY [facility] Last Admin: 04/16/17 10:51 Dose: 81 mg Atorvastatin Calcium (Lipitor -) 10 mg PO HS [facility] Last Admin: 04/16/17 21:35 Dose: 10 mg Cholecalciferol (Vitamin D3 -) 2,000 unit PO DAILY [facility] Last Admin: 04/16/17 12:55 Dose: 2,000 unit Clonazepam (Klonopin -) 0.5 mg PO Q6H PRN PRN Reason: ANXIETY Diltiazem HCl (Cardizem Cd -) 180 mg PO DAILY [facility] Last Admin: 04/16/17 10:51 Dose: 180 mg Heparin Sodium (Porcine) (Heparin -) 5,000 unit SQ BID [facility] Methylprednisolone Sodium Succinate (Solu-Medrol -) 60 mg IVPB Q8H-IV [facility] Last Admin: 04/17/17 02:08 Dose: 60 mg Oxycodone HCl (Roxicodone -) 5 mg PO Q6H PRN PRN Reason: PAIN Last Admin: 04/17/17 09:25 Dose: 5 mg Pantoprazole Sodium (Protonix -) 40 mg PO DAILY [facility] Last Admin: 04/16/17 10:51 Dose: 40 mg Roflumilast (Daliresp -) 500 mcg PO DAILY [facility] Last Admin: 04/16/17 13:19 Dose: 500 mcg CBC, BMP 04/16/17 06:30 04/16/17 06:30 Physical Examination Constitutional: Yes: No Distress, Calm Cardiovascular: Yes: Regular Rate and Rhythm Respiratory: Yes: bilateral wheezes. Gastrointestinal: Yes: Normal Bowel Sounds, Soft. No: Distention, Tenderness Extremities: Yes: Other (right knee-- no warmth,mild swelling ) Edema: trace Imaging - Results Chest X-ray: Image Reviewed (clear) EKG: Image Reviewed (NSR) Problem List - Problems (1) COPD exacerbation Code(s): J44.1 - CHRONIC OBSTRUCTIVE PULMONARY DISEASE W (ACUTE) EXACERBATION (2) Strain of right knee Code(s): S86.911A - STRAIN OF UNSP MUSC/TEND AT LOWER LEG LEVEL, RIGHT LEG, INIT Qualifiers: Encounter type: initial encounter Qualified Code(s): S86.911A - Strain of unspecified muscle(s) and tendon(s) at lower leg level, right leg, initial encounter (3) COPD (chronic obstructive pulmonary disease) Code(s): J44.9 - CHRONIC OBSTRUCTIVE PULMONARY DISEASE, UNSPECIFIED (4) HTN (hypertension) Code(s): I10 - ESSENTIAL (PRIMARY) HYPERTENSION Qualifiers: Hypertension type: essential hypertension Qualified Code(s): I10 - Essential (primary) hypertension Assessment/Plan continue current dose of Solumedrol nebs O2 as needed PT pain control continue with home meds DVT prophylaxis-- Heparin sc will follow
--- NOTE | 2017-04-17 14:52 | PN ---
Progress Note, Physician History of Present Illness: PULMONARY ALERT,LESS DYSPNEIC,+COUGH,+WHEEZING - Current Medication List Current Medications: Active Medications Acetaminophen (Tylenol -) 325 mg PO Q6H PRN PRN Reason: PAIN Last Admin: 04/17/17 09:23 Dose: 325 mg Albuterol/Ipratropium (Duoneb -) 1 amp NEB Q4H [facility] Last Admin: 04/17/17 13:53 Dose: 1 amp Amitriptyline HCl (Elavil -) 25 mg PO HS [facility] Last Admin: 04/16/17 21:35 Dose: 25 mg Aspirin (Asa -) 81 mg PO DAILY [facility] Last Admin: 04/17/17 09:29 Dose: 81 mg Atorvastatin Calcium (Lipitor -) 10 mg PO HS [facility] Last Admin: 04/16/17 21:35 Dose: 10 mg Cholecalciferol (Vitamin D3 -) 2,000 unit PO DAILY [facility] Last Admin: 04/17/17 09:31 Dose: 2,000 unit Clonazepam (Klonopin -) 0.5 mg PO Q6H PRN PRN Reason: ANXIETY Diltiazem HCl (Cardizem Cd -) 180 mg PO DAILY [facility] Last Admin: 04/17/17 09:29 Dose: 180 mg Heparin Sodium (Porcine) (Heparin -) 5,000 unit SQ BID [facility] Last Admin: 04/17/17 09:30 Dose: 5,000 unit Methylprednisolone Sodium Succinate (Solu-Medrol -) 60 mg IVPB Q8H-IV [facility] Last Admin: 04/17/17 09:30 Dose: 60 mg Oxycodone HCl (Roxicodone -) 5 mg PO Q6H PRN PRN Reason: PAIN Last Admin: 04/17/17 09:25 Dose: 5 mg Pantoprazole Sodium (Protonix -) 40 mg PO DAILY [facility] Last Admin: 04/17/17 09:29 Dose: 40 mg Roflumilast (Daliresp -) 500 mcg PO DAILY [facility] Last Admin: 04/17/17 09:30 Dose: 500 mcg - Objective Vital Signs: Vital Signs Temperature 98.6 F 04/17/17 09:00 Pulse Rate 80 04/17/17 09:00 Respiratory Rate 18 04/17/17 09:00 Blood Pressure 145/90 04/17/17 09:00 O2 Sat by Pulse Oximetry (%) 97 04/17/17 13:00 Constitutional: Yes: Well Nourished, Calm Eyes: Yes: WNL HENT: Yes: WNL Neck: Yes: WNL Cardiovascular: Yes: Regular Rate and Rhythm, S1, S2 Respiratory: Yes: Wheezes (CHANDAN WHEEZES) Gastrointestinal: Yes: Normal Bowel Sounds, Soft Extremities: Yes: WNL Edema: No Problem List - Problems (1) Acute exacerbation of chronic obstructive pulmonary disease (COPD) Code(s): J44.1 - CHRONIC OBSTRUCTIVE PULMONARY DISEASE W (ACUTE) EXACERBATION (2) Exacerbation of asthma Code(s): J45.901 - UNSPECIFIED ASTHMA WITH (ACUTE) EXACERBATION (3) HTN (hypertension) Code(s): I10 - ESSENTIAL (PRIMARY) HYPERTENSION Qualifiers: Hypertension type: essential hypertension Qualified Code(s): I10 - Essential (primary) hypertension (4) Shortness of breath Code(s): R06.02 - SHORTNESS OF BREATH Assessment/Plan Problem List - Problems (1) COPD exacerbation Code(s): J44.1 - CHRONIC OBSTRUCTIVE PULMONARY DISEASE W (ACUTE) EXACERBATION (2) Strain of right knee Code(s): S86.911A - STRAIN OF UNSP MUSC/TEND AT LOWER LEG LEVEL, RIGHT LEG, INIT Qualifiers: Encounter type: initial encounter Qualified Code(s): S86.911A - Strain of unspecified muscle(s) and tendon(s) at lower leg level, right leg, initial encounter (3) Abscess of axilla, left Code(s): L02.412 - CUTANEOUS ABSCESS OF LEFT AXILLA Assessment/Plan A/E COPD KNEE PAIN HTN HLD DM O2 PRN BRONCHODILATORS TERI LABA/LAMA/ICS IV STEROIDS DAILY PEAK FLOW PUD/DVT PROPHYLAXSIS DR COLBERT
[2017-04-17] MEDS: AMITRIPTYLINE HCL 25 MG TABLET (FP) PO SCH (22:18)
[2017-04-17] MEDS: ATORVASTATIN CA 10 MG TABLET (FP) PO SCH (22:18)
[2017-04-18] MEDS: methylPREDNISolone NA SUCC 40 MG/1 ML VIAL IVPB SCH ×3 (01:57→17:34)
[2017-04-18] MEDS: ALBUTEROL SO4 2.5/IPRATROPIUM 0.5 INH SOL 3 ML VIAL.NEB. NEB SCH ×6 (03:00→22:31)
--- NOTE | 2017-04-18 09:57 | PN ---
Progress Note, Physician Chief Complaint: feels better has headaches when she wakes up in the morning no SOB - Current Medication List Current Medications: Active Medications Acetaminophen (Tylenol -) 325 mg PO Q6H PRN PRN Reason: PAIN Last Admin: 04/17/17 22:19 Dose: 325 mg Albuterol/Ipratropium (Duoneb -) 1 amp NEB Q4H [facility] Last Admin: 04/18/17 07:15 Dose: Not Given Amitriptyline HCl (Elavil -) 25 mg PO HS [facility] Last Admin: 04/17/17 22:18 Dose: 25 mg Aspirin (Asa -) 81 mg PO DAILY [facility] Last Admin: 04/17/17 09:29 Dose: 81 mg Atorvastatin Calcium (Lipitor -) 10 mg PO HS [facility] Last Admin: 04/17/17 22:18 Dose: 10 mg Cholecalciferol (Vitamin D3 -) 2,000 unit PO DAILY [facility] Last Admin: 04/17/17 09:31 Dose: 2,000 unit Clonazepam (Klonopin -) 0.5 mg PO Q6H PRN PRN Reason: ANXIETY Diltiazem HCl (Cardizem Cd -) 180 mg PO DAILY [facility] Last Admin: 04/17/17 09:29 Dose: 180 mg Heparin Sodium (Porcine) (Heparin -) 5,000 unit SQ BID [facility] Last Admin: 04/17/17 22:23 Dose: Not Given Methylprednisolone Sodium Succinate (Solu-Medrol -) 60 mg IVPB Q8H-IV [facility] Last Admin: 04/18/17 01:57 Dose: 60 mg Oxycodone HCl (Roxicodone -) 5 mg PO Q6H PRN PRN Reason: PAIN Last Admin: 04/17/17 22:25 Dose: 5 mg Pantoprazole Sodium (Protonix -) 40 mg PO DAILY [facility] Last Admin: 04/17/17 09:29 Dose: 40 mg Roflumilast (Daliresp -) 500 mcg PO DAILY [facility] Last Admin: 04/17/17 09:30 Dose: 500 mcg - Objective Vital Signs: Vital Signs Temperature 98.2 F 04/18/17 06:00 Pulse Rate 79 04/18/17 06:00 Respiratory Rate 20 04/18/17 06:00 Blood Pressure 129/64 04/18/17 06:00 O2 Sat by Pulse Oximetry (%) 97 04/17/17 13:00 Constitutional: Yes: No Distress, Calm Cardiovascular: Yes: Regular Rate and Rhythm Respiratory: Yes: Diminished, Rhonchi (decreased) Gastrointestinal: Yes: Normal Bowel Sounds, Soft. No: Distention, Tenderness Edema: No Psychiatric: Yes: Alert, Oriented Labs: CBC, BMP 04/16/17 06:30 04/16/17 06:30 Problem List - Problems (1) COPD exacerbation Code(s): J44.1 - CHRONIC OBSTRUCTIVE PULMONARY DISEASE W (ACUTE) EXACERBATION (2) Strain of right knee Code(s): S86.911A - STRAIN OF UNSP MUSC/TEND AT LOWER LEG LEVEL, RIGHT LEG, INIT Qualifiers: Encounter type: initial encounter Qualified Code(s): S86.911A - Strain of unspecified muscle(s) and tendon(s) at lower leg level, right leg, initial encounter (3) COPD (chronic obstructive pulmonary disease) Code(s): J44.9 - CHRONIC OBSTRUCTIVE PULMONARY DISEASE, UNSPECIFIED (4) HTN (hypertension) Code(s): I10 - ESSENTIAL (PRIMARY) HYPERTENSION Qualifiers: Hypertension type: essential hypertension Qualified Code(s): I10 - Essential (primary) hypertension Assessment/Plan PLAN on Solumedrol Pulmonary follow up may have sleep apnea, will need outpt testing for sleep apnea nebs O2 as needed PT eval pain control continue with home meds DVT prophylaxis-- Heparin sc
[2017-04-18] MEDS ORDERED: PT OWN MED DRAWER 7, Y5N ONE (11:13)
[2017-04-18] MEDS: ASPIRIN 81 MG CHEWABLE TABLETS PO SCH (11:15)
[2017-04-18] MEDS: ROFLUMILAST 500 MCG TABLET PO SCH (11:15)
[2017-04-18] MEDS: PANTOPRAZOLE 40 MG TABLET (FP) PO SCH (11:16)
[2017-04-18] MEDS: CHOLECALCIFEROL (VITAMIN D3) 1,000 UNIT TABLET (FP) PO SCH (11:16)
[2017-04-18] MEDS: HEPARIN NA (PORCINE) 5,000 UNITS/ML 1ML VIAL SQ SCH ×2 (11:16→21:32)
[2017-04-18] MEDS: ACETAMINOPHEN 325 MG TABLET (FP) PO PRN (11:17)
[2017-04-18] MEDS: oxyCODONE HCL 5 MG TABLET PO PRN (15:24)
--- NOTE | 2017-04-18 15:35 | PN ---
Progress Note (short form) - Note Progress Note: PULMONARY VSS/AFEBRILE ANICTERIC SCATTERED WHEEZES IMPROVED S1S2 OBESE LESS EDEMA LABS/MEDS/NOTES/IMAGING REVIEWED A/E COPD KNEE STRAIN HPL/HTN/DM O2 PRN BRONCHODILATORS/TERI/LABA/LAMA/ICS IV STEROIDS TO BE REDUCED NO NEED FOR ABS DAILY PEAK FLOW PUD/DVT PROPHYLAXSIS R AMARA MORENO Problem List - Problems (1) COPD exacerbation Code(s): J44.1 - CHRONIC OBSTRUCTIVE PULMONARY DISEASE W (ACUTE) EXACERBATION (2) Strain of right knee Code(s): S86.911A - STRAIN OF UNSP MUSC/TEND AT LOWER LEG LEVEL, RIGHT LEG, INIT Qualifiers: Encounter type: initial encounter Qualified Code(s): S86.911A - Strain of unspecified muscle(s) and tendon(s) at lower leg level, right leg, initial encounter (3) Abscess of axilla, left Code(s): L02.412 - CUTANEOUS ABSCESS OF LEFT AXILLA
[2017-04-18] MEDS: ATORVASTATIN CA 10 MG TABLET (FP) PO SCH (21:31)
[2017-04-18] MEDS: AMITRIPTYLINE HCL 25 MG TABLET (FP) PO SCH (21:32)
[2017-04-19] MEDS: methylPREDNISolone NA SUCC 40 MG/1 ML VIAL IVPB SCH ×2 (02:26→11:44)
[2017-04-19] MEDS: ALBUTEROL SO4 2.5/IPRATROPIUM 0.5 INH SOL 3 ML VIAL.NEB. NEB SCH ×4 (02:30→11:40)
--- NOTE | 2017-04-19 10:04 | PN ---
Progress Note, Physician Chief Complaint: feels better except for a morning headache no dizziness no visual disturbances - Current Medication List Current Medications: Active Medications Acetaminophen (Tylenol -) 650 mg PO Q4H PRN PRN Reason: FEVER OR PAIN Last Admin: 04/18/17 11:17 Dose: 650 mg Albuterol/Ipratropium (Duoneb -) 1 amp NEB Q4H [facility] Last Admin: 04/19/17 07:25 Dose: Not Given Amitriptyline HCl (Elavil -) 25 mg PO HS [facility] Last Admin: 04/18/17 21:32 Dose: 25 mg Aspirin (Asa -) 81 mg PO DAILY [facility] Last Admin: 04/18/17 11:15 Dose: 81 mg Atorvastatin Calcium (Lipitor -) 10 mg PO HS [facility] Last Admin: 04/18/17 21:31 Dose: 10 mg Cholecalciferol (Vitamin D3 -) 2,000 unit PO DAILY [facility] Last Admin: 04/18/17 11:16 Dose: 2,000 unit Clonazepam (Klonopin -) 0.5 mg PO Q6H PRN PRN Reason: ANXIETY Diltiazem HCl (Cardizem Cd -) 180 mg PO DAILY [facility] Last Admin: 04/18/17 11:15 Dose: 180 mg Heparin Sodium (Porcine) (Heparin -) 5,000 unit SQ BID [facility] Last Admin: 04/18/17 21:32 Dose: Not Given Methylprednisolone Sodium Succinate (Solu-Medrol -) 40 mg IVPB Q8H-IV [facility] Last Admin: 04/19/17 02:26 Dose: 40 mg Oxycodone HCl (Roxicodone -) 5 mg PO Q6H PRN PRN Reason: PAIN Last Admin: 04/18/17 15:24 Dose: 5 mg Pantoprazole Sodium (Protonix -) 40 mg PO DAILY [facility] Last Admin: 04/18/17 11:16 Dose: 40 mg Roflumilast (Daliresp -) 500 mcg PO DAILY [facility] Last Admin: 04/18/17 11:15 Dose: 500 mcg - Objective Vital Signs: Vital Signs Temperature 98.7 F 04/19/17 06:27 Pulse Rate 88 04/19/17 06:27 Respiratory Rate 20 04/19/17 06:27 Blood Pressure 167/84 04/19/17 06:27 O2 Sat by Pulse Oximetry (%) 95 04/18/17 22:00 Constitutional: Yes: No Distress, Calm Cardiovascular: Yes: Regular Rate and Rhythm Respiratory: Yes: Diminished, Rhonchi (decreased) Gastrointestinal: Yes: Normal Bowel Sounds. No: Tenderness Edema: No Problem List - Problems (1) COPD exacerbation Code(s): J44.1 - CHRONIC OBSTRUCTIVE PULMONARY DISEASE W (ACUTE) EXACERBATION (2) Strain of right knee Code(s): S86.911A - STRAIN OF UNSP MUSC/TEND AT LOWER LEG LEVEL, RIGHT LEG, INIT Qualifiers: Encounter type: initial encounter Qualified Code(s): S86.911A - Strain of unspecified muscle(s) and tendon(s) at lower leg level, right leg, initial encounter (3) COPD (chronic obstructive pulmonary disease) Code(s): J44.9 - CHRONIC OBSTRUCTIVE PULMONARY DISEASE, UNSPECIFIED (4) HTN (hypertension) Code(s): I10 - ESSENTIAL (PRIMARY) HYPERTENSION Qualifiers: Hypertension type: essential hypertension Qualified Code(s): I10 - Essential (primary) hypertension Assessment/Plan PLAN on Solumedrol-- dc today and changed to PO Prednisone Pulmonary follow up noted may have sleep apnea, will need outpt testing for sleep apnea - cause of morning headaches nebs PT eval pain control continue with home meds DVT prophylaxis-- Heparin sc
[2017-04-19] MEDS ORDERED: PT OWN MED DRAWER 7, Y5N ONE (10:08)
--- NOTE | 2017-04-19 10:15 | PN ---
Progress Note (short form) - Note Progress Note: PULMONARY VSS/AFEBRILE ANICTERIC DISTANT BREATH SOUNDS S1S2 OBESE LESS EDEMA LABS/MEDS/NOTES/IMAGING REVIEWED A/E COPD RESOLVING KNEE STRAIN HPL/HTN/DM O2 PRN BRONCHODILATORS/TERI/LABA/LAMA/ICS IV STEROIDS CHANGED TO ORAL NO NEED FOR ABS DAILY PEAK FLOW PUD/DVT PROPHYLAXSIS WILL TAPER PRED OUTPATIENT ,PATIENT HAS BEEN INSTRUCTED Ubaldo MALONEY MD Problem List - Problems (1) COPD exacerbation Code(s): J44.1 - CHRONIC OBSTRUCTIVE PULMONARY DISEASE W (ACUTE) EXACERBATION (2) Strain of right knee Code(s): S86.911A - STRAIN OF UNSP MUSC/TEND AT LOWER LEG LEVEL, RIGHT LEG, INIT Qualifiers: Encounter type: initial encounter Qualified Code(s): S86.911A - Strain of unspecified muscle(s) and tendon(s) at lower leg level, right leg, initial encounter (3) Abscess of axilla, left Code(s): L02.412 - CUTANEOUS ABSCESS OF LEFT AXILLA
[2017-04-19] MEDS: PANTOPRAZOLE 40 MG TABLET (FP) PO SCH (10:29)
[2017-04-19] MEDS: ASPIRIN 81 MG CHEWABLE TABLETS PO SCH (10:29)
[2017-04-19] MEDS: CHOLECALCIFEROL (VITAMIN D3) 1,000 UNIT TABLET (FP) PO SCH (10:29)
[2017-04-19] MEDS: ROFLUMILAST 500 MCG TABLET PO SCH (10:29)
[2017-04-19] MEDS: HEPARIN NA (PORCINE) 5,000 UNITS/ML 1ML VIAL SQ SCH ×2 (10:32→21:43)
[2017-04-19] MEDS: ACETAMINOPHEN 325 MG TABLET (FP) PO PRN ×2 (10:39→18:25)
[2017-04-19] MEDS: oxyCODONE HCL 5 MG TABLET PO PRN ×2 (10:40→18:24)
[2017-04-19] MEDS: predniSONE 20 MG TABLET (UD) PO SCH (10:40)
[2017-04-19] MEDS: ATORVASTATIN CA 10 MG TABLET (FP) PO SCH (21:43)
[2017-04-19] MEDS: AMITRIPTYLINE HCL 25 MG TABLET (FP) PO SCH (21:43)
[2017-04-20] MEDS: ALBUTEROL SO4 2.5/IPRATROPIUM 0.5 INH SOL 3 ML VIAL.NEB. NEB SCH ×2 (00:10→06:50)
[2017-04-20 09:29] VITALS: BP 140/75; PULSE 69; TEMP 98.8
--- NOTE | 2017-04-20 09:46 | DS ---
Physical Examination Vital Signs: Vital Signs Temperature 98.8 F 04/20/17 09:28 Pulse Rate 69 04/20/17 09:28 Respiratory Rate 18 04/20/17 09:28 Blood Pressure 140/75 04/20/17 09:28 O2 Sat by Pulse Oximetry (%) 94 L 04/19/17 21:00 Constitutional: Yes: No Distress Cardiovascular: Yes: Regular Rate and Rhythm Respiratory: Yes: Rhonchi Gastrointestinal: Yes: Normal Bowel Sounds, Soft. No: Tenderness Edema: No Discharge Summary Reason For Visit: CHRONIC OBSTRUCTIVE PULMONARY DISEASE Current Active Problems Asthma with COPD (Acute) COPD exacerbation (Acute) Strain of right knee (Acute) Hospital Course: Admitted for COPD exacerbation despite outpt prednisone Started on IV Solumedol and Nebs Seen by Pulmonary Also has right knee pain -- s/p arthroscopy Pt better after solumedrol-- now tapered to prednisone 40mg She is advised to taper Prednisone by 10mg every 3 days She will follow up with Pulmonary - Dr cosby and will also get sleep study testing as well as she wakes up with morning headaches. She will follow up with me in the office _percocet and Klonopin escribed to pharmacy-- HCS verified Condition: Fair - Instructions Referrals: Jeff Flores MD [Staff Physician] - Cristal Ludwig MD [Primary Care Provider] - Disposition: HOME - Home Medications Comprehensive Discharge Medication List: Ambulatory Orders Atorvastatin Ca [Lipitor] 10 mg PO HS 06/24/15 Roflumilast [Daliresp] 500 mcg PO DAILY 06/24/15 Tiotropium [place] [Spiriva] 1 inh PO DAILY 06/24/15 Aspirin [ASA -] 81 mg PO DAILY 03/21/16 Cyanocobalamin [Vitamin B12 -] 1,000 mcg PO DAILY tablet 03/28/16 Diltiazem Cd [Cardizem Cd -] 180 mg PO DAILY #60 cap.cd.24h 06/08/16 Amitriptyline HCl [Elavil -] 25 mg PO HS 09/23/16 Clonazepam [Klonopin -] 0.5 mg PO PRN PRN 11/23/16 [place]-3 Fatty Acids [Fish Oil] 300 mg PO DAILY 11/23/16 Salmeterol/Fluticasone [Advair 500Mcg/50Mcg -] 1 inh PO BID 11/23/16 Albuterol Sulfate Inhaler - [Ventolin HFA Inhaler -] 1 - 2 inh PO Q4H PRN #1 inhaler 12/11/16 Famotidine [Pepcid] 40 mg PO HS 04/15/17 Cholecalciferol (Vitamin D3) [Vitamin D3 -] 1,000 unit PO DAILY 04/16/17 Oxycodone HCl/Acetaminophen [Percocet 5-325 mg Tablet] 1 tab PO Q6H PRN #10 tablet MDD 4 04/19/17 Clonazepam [Klonopin -] 0.5 mg PO Q6H PRN #30 tablet MDD 3 04/20/17
[2017-04-20] MEDS ORDERED: PT OWN MED DRAWER 7, Y5N ONE (10:02)
[2017-04-20] MEDS: ACETAMINOPHEN 325 MG TABLET (FP) PO PRN (10:22)
[2017-04-20] MEDS: CHOLECALCIFEROL (VITAMIN D3) 1,000 UNIT TABLET (FP) PO SCH (10:22)
[2017-04-20] MEDS: predniSONE 20 MG TABLET (UD) PO SCH (10:22)
[2017-04-20] MEDS: ASPIRIN 81 MG CHEWABLE TABLETS PO SCH (10:23)
[2017-04-20] MEDS: ROFLUMILAST 500 MCG TABLET PO SCH (10:23)
[2017-04-20] MEDS: PANTOPRAZOLE 40 MG TABLET (FP) PO SCH (10:23)
[2017-04-20] MEDS: oxyCODONE HCL 5 MG TABLET PO PRN (10:24)
[2017-04-20] MEDS: HEPARIN NA (PORCINE) 5,000 UNITS/ML 1ML VIAL SQ SCH (10:25)
== END 2017-04-20 11:13 | disposition home or self-care (01) | DRG 192 ==
LOC: JER 15:36 → JERBED 20:31 → J8W 23:44 → OBSVTOIN 04-18 10:21
PROVIDERS: ADMIT Internal Medicine; ATTEND Internal Medicine
DX: J44.1 Chronic obstructive pulmonary disease with (acute) exacerbation (principal); S86.911A Strain of unspecified muscle(s) and tendon(s) at lower leg level, right leg, initial encounter; E78.5 Hyperlipidemia, unspecified; I10 Essential (primary) hypertension; E11.9 Type 2 diabetes mellitus without complications; E66.9 Obesity, unspecified; Z68.30 Body mass index [BMI] 30.0-30.9, adult; Z87.891 Personal history of nicotine dependence; K21.9 Gastro-esophageal reflux disease without esophagitis
CPT/HCPCS: 36415; 71010-TC; 73560-TC-RT; 80053; 83880; 84484; 85025; 93005; 93010; 94150; 94640; 97116-GP; 97161-GP; 99285-25; G0378; J1644

== ENCOUNTER 2017-06-25 17:32 | Inpatient (IN) | payer OTHER, BC ==
--- NOTE | 2017-06-25 18:25 | PDOC ---
History of Present Illness - History of Present Illness Initial Comments: 06/25/17 18:18 57 yo F with h/o asthma, COPD, CVA, and HTN who presents with SOB. Patient reports increased work of breathing and SOB over the past 24-48 hours. She endorses flu like illness 3 weeks ago that has slowly resolved. Complains of chest tightness with inhalation, general malaise/fatigue, baseline non productive cough without increased sputum production, or frequency. Denies fevers/chills, N/V, hemoptysis, chest pain, jaw/neck pain, diaphoresis, weakness , numbness/tingling, extremity swelling, calf pain/tenderness, dizziness, abdominal or urinary complaints. Denies home O2 requirements, but reports increased duoneb use over past two days. No home steroid use. Denies h/o DVT/PE , recent trauma/surgery, or h/o malignancy. Smoking cessation 5 years ago with 1 PPD 20 year history. States that she presents to the ED frequently requiring steroid and duoneb treatments. <Elian Sawyer - Last Filed: 06/25/17 18:44> <Gabriella Nicholson - Last Filed: 06/25/17 23:02> - General Chief Complaint: Respiratory Stated Complaint: FATIGUE Time Seen by Provider: 06/25/17 17:54 Past History - Past Medical History Anemia: No Asthma: Yes Cancer: No Cardiac Disorders: Yes (TACHY) CVA: No COPD: Yes CHF: No Dementia: No Diabetes: (BORDERLINE) GI Disorders: Yes (GERD) Disorders: No HTN: Yes Hypercholesterolemia: Yes Liver Disease: No Seizures: No Thyroid Disease: Yes (NODULES) - Surgical History Abdominal Surgery: Yes (POLYP REMOVED FROM UTERUS 09/06/13) Appendectomy: No Cardiac Surgery: No Cholecystectomy: No GI Surgery: Yes (umbilical hernia/wound vac) Lung Surgery: No Neurologic Surgery: No Orthopedic Surgery: Yes (BUNION REMOVAL RT FOOT 2013) - Immunization History Immunization Up to Date: Yes - Suicide/Smoking/Psychosocial Hx Smoking Status: Yes Smoking History: Former smoker Have you smoked in the past 12 months: No Number of Cigarettes Smoked Daily: 0 If you are a former smoker, when did you quit?: 5 YRS Information on smoking cessation initiated: No 'Breaking Loose' booklet given: 10/28/13 Hx Alcohol Use: Yes (SOCIAL) Drug/Substance Use Hx: No Substance Use Type: None Hx Substance Use Treatment: No <Elian Sawyer - Last Filed: 06/25/17 18:44> <Gabriella Nicholson - Last Filed: 06/25/17 23:02> - Past Medical History Allergies/Adverse Reactions: Allergies Allergy/AdvReac Type Severity Reaction Status Date / Time Penicillins Allergy Hives Verified 04/15/17 15:48 Sulfa (Sulfonamide Allergy Hives Verified 04/15/17 15:48 Antibiotics) [Sulfa(Sulfonamide Antibiotics)] Home Medications: Ambulatory Orders Atorvastatin Ca [Lipitor] 10 mg PO HS 06/24/15 Roflumilast [Daliresp] 500 mcg PO DAILY 06/24/15 Tiotropium [place] [Spiriva] 1 inh PO DAILY 06/24/15 Aspirin [ASA -] 81 mg PO DAILY 03/21/16 Cyanocobalamin [Vitamin B12 -] 1,000 mcg PO DAILY tablet 03/28/16 Diltiazem Cd [Cardizem Cd -] 180 mg PO DAILY #60 cap.cd.24h 06/08/16 Amitriptyline HCl [Elavil -] 25 mg PO HS 09/23/16 Clonazepam [Klonopin -] 0.5 mg PO PRN PRN 11/23/16 [place]-3 Fatty Acids [Fish Oil] 300 mg PO DAILY 11/23/16 Salmeterol/Fluticasone [Advair 500Mcg/50Mcg -] 1 inh PO BID 11/23/16 Albuterol Sulfate Inhaler - [Ventolin HFA Inhaler -] 1 - 2 inh PO Q4H PRN #1 inhaler 12/11/16 Famotidine [Pepcid] 40 mg PO HS 04/15/17 Cholecalciferol (Vitamin D3) [Vitamin D3 -] 1,000 unit PO DAILY 04/16/17 Oxycodone HCl/Acetaminophen [Percocet 5-325 mg Tablet] 1 tab PO Q6H PRN #10 tablet MDD 4 04/19/17 Clonazepam [Klonopin -] 0.5 mg PO Q6H PRN #30 tablet MDD 3 04/20/17 Review of Systems - Review of Systems Comments:: 06/25/17 18:26 GENERAL/CONSTITUTIONAL: + Fatigue. No fever or chills. No weakness. HEAD, EYES, EARS, NOSE AND THROAT: No change in vision. No ear pain or discharge. No sore throat.- CARDIOVASCULAR: + shortness of breath. No chest pain. RESPIRATORY: No cough, wheezing, or hemoptysis. GASTROINTESTINAL: No nausea, vomiting, diarrhea or constipation. GENITOURINARY: No dysuria, frequency, or change in urination. MUSCULOSKELETAL: No joint or muscle swelling or pain. No neck or back pain. SKIN: No rash NEUROLOGIC: No headache, vertigo, loss of consciousness, or change in strength/ sensation. ENDOCRINE: No increased thirst. No abnormal weight change HEMATOLOGIC/LYMPHATIC: No anemia, easy bleeding, or history of blood clots. ALLERGIC/IMMUNOLOGIC: No hives or skin allergy. <Elian Sawyer - Last Filed: 06/25/17 18:44> *Physical Exam - Vital Signs Last Vital Signs Temp Pulse Resp BP Pulse Ox 98.0 F 108 H 20 122/77 97 06/25/17 17:33 06/25/17 17:33 06/25/17 17:33 06/25/17 17:33 06/25/17 17:33 - Physical Exam Comments: 06/25/17 18:27 GENERAL: Awake, alert, and fully oriented, in no acute distress HEAD: No signs of trauma, normocephalic, atraumatic EYES:Left sided ptosis, sclera anicteric, conjunctiva clear ENT: hearing grossly normal, nares patent, oropharynx clear without exudates. Moist mucosa NECK: Normal ROM, supple, no lymphadenopathy, JVD, or masses LUNGS: + inspiratory and expiratory wheezing bilaterally. Negative rales throughout. No distress, speaks full sentences, clear to auscultation bilaterally HEART: Regular rate and rhythm, normal S1 and S2, no murmurs, rubs or gallops, peripheral pulses normal and equal bilaterally. EXTREMITIES : Normal inspection, Normal range of motion, no edema. No clubbing or cyanosis. SKIN: Warm, Dry, normal turgor, no rashes or lesions noted. <Elian Sawyer - Last Filed: 06/25/17 18:44> - Vital Signs Last Vital Signs Temp Pulse Resp BP Pulse Ox 98.0 F 108 H 20 122/77 97 06/25/17 17:33 06/25/17 17:33 06/25/17 17:33 06/25/17 17:33 06/25/17 17:33 <Gabriella Nicholson - Last Filed: 06/25/17 23:02> ED Treatment Course - RADIOLOGY Radiology Studies Ordered: Category Date Time Status CXRPORT [CHEST X-RAY PORTABLE*] [RAD] Stat Radiology 06/25/17 18:17 Ordered <Elian Sawyer - Last Filed: 06/25/17 18:44> - LABORATORY CBC & Chemistry Diagram: 06/25/17 20:35 06/25/17 20:35 - ADDITIONAL ORDERS Additional order review: Laboratory Results 06/25/17 06/25/17 20:35 20:35 Sodium 143 Potassium 3.7 Chloride 107 Carbon Dioxide 27 Anion Gap 9 BUN 9 D Creatinine 0.7 Creat Clearance w eGFR > 60 Random Glucose 141 H Calcium 8.7 Total Bilirubin 0.6 AST 10 L ALT 17 Alkaline Phosphatase 105 Creatine Kinase 85 Troponin I < 0.02 Total Protein 5.9 L Albumin 3.3 L 06/25/17 18:30 Influenza Types A,B Antigen (ROBERT) - Final Nasopharyngeal Swab - Final 06/25/17 20:35 RBC 4.20 MCV 90.6 MCHC 33.2 RDW 14.6 MPV 7.3 L Neutrophils % 51.0 D Lymphocytes % 38.5 D Monocytes % 5.8 D Eosinophils % 4.3 D Basophils % 0.4 - Medications Given in the ED: ED Medications Discontinued Medications Generic Name Dose Route Start Last Admin Trade Name Freq PRN Reason Stop Dose Admin Albuterol/Ipratropium 1 amp 06/25/17 18:30 06/25/17 19:11 Duoneb - NEB 06/25/17 19:16 1 amp Q15M SANDEEP Administration Prednisone 60 mg 06/25/17 18:37 06/25/17 19:18 Deltasone - PO 06/25/17 18:38 60 mg ONCE ONE Administration <Gabriella Nicholson - Last Filed: 06/25/17 23:02> Medical Decision Making - Medical Decision Making 06/25/17 18:33 57 yo F with h/o asthma, COPD, CVA, and HTN who presents with SOB and increased work of breathing for the past 24-48 hours. She endorses flu like illness 3 weeks ago that has slowly resolved and now complains of chest tightness with inhalation, general malaise/fatigue, and baseline non productive cough without increased sputum production, or frequency. No f/c/cp. No home O2 requirements, but increased duoneb use over past two days. Physical exam reveals mild tachycardia and diffuse inspiratory and expiratory rhonci. No prior h/o DVT/PE, hemoptysis, recent trauma/surgery, or h/o malignancy. Smoking cessation 5 years ago with 1 PPD 20 year history. States that she presents to the ED frequently requiring steroid and duoneb treatments. DDx: COPD exacerbation, PNA ED Course: EKG, CXR Duoneb therapy Influenza A and B 06/25/17 18:35 Peak Flow - 300 06/25/17 18:37 Prednisone 60 mg x 1 <Elian Sawyer - Last Filed: 06/25/17 18:44> *DC/Admit/Observation/Transfer - Discharge Dispostion Admit: No - Attestations Physician Attestion: 06/25/17 18:46 I attest to the information provided in this note. <Elian Sawyer - Last Filed: 06/25/17 18:44> - Discharge Dispostion Admit: Yes <Gabriella Nicholson - Last Filed: 06/25/17 23:02> Diagnosis at time of Disposition: COPD (chronic obstructive pulmonary disease) with acute bronchitis - Discharge Dispostion Condition at time of disposition: Stable - Referrals Referrals: Cristal Ludwig MD [Primary Care Provider] -
[2017-06-25] MEDS ORDERED: ALBUTEROL SO4 2.5/IPRATROPIUM 0.5 INH SOL 3 ML VIAL.NEB. NEB ONE (18:29)
[2017-06-25] MEDS: ALBUTEROL SO4 2.5/IPRATROPIUM 0.5 INH SOL 3 ML VIAL.NEB. NEB SCH ×2 (18:34→19:11)
[2017-06-25] MEDS ORDERED: predniSONE 20 MG TABLET (UD) PO ONE (18:37)
[2017-06-25] MEDS ORDERED: predniSONE 20 MG TABLET (UD) ONE (19:12)
[2017-06-25 20:41] LABS: BASOPHIL 0.4 % (0-2.0); EOSINOPHIL 4.3 % (0-4.5); MCH 30.1 pg (25.7-33.7); MCHC 33.2 g/dl (32.0-36.0); MEAN CELL VOLUME 90.6 fl (80-96); MEAN PLT VOLUME 7.3 fl (7.5-11.1); PLATELET COUNT 274 K/MM3 (134-434); RDW 14.6 % (11.6-15.6)
[2017-06-25 21:10] LABS: ALBUMIN 3.3 g/dl (3.4-5.0); ANION GAP 9 (8-16); BILIRUBIN,TOTAL 0.6 mg/dL (0.2-1.0); CALCIUM 8.7 mg/dL (8.5-10.1); CO2 27 mmol/L (21-32); CPK 85 IU/L (26-192); CREATININE 0.7 mg/dL (0.55-1.02); GLUCOSE,RANDOM 141 mg/dL (74-106); SGOT/AST 10 U/L (15-37); SGPT/ALT 17 U/L (12-78); TOT PROT 5.9 g/dl (6.4-8.2); TROPONIN I < 0.02 ng/ml (0.00-0.05)
[2017-06-25 21:11] LABS: ALK PHOS 105 U/L (45-117)
--- NOTE | 2017-06-25 22:31 | PDOC ---
Attending Attestation - Resident Resident Name: Zach Sawyerson - ED Attending Attestation I have performed the following: I have examined & evaluated the patient, The case was reviewed & discussed with the resident, I agree w/resident's findings & plan, Exceptions are as noted - HPI HPI: 06/25/17 22:30 57 yo female with history of asthma p/w scattered diffuse wheezing and general malaise. No fever, no production cough,no nausea ,no chest pain - Physicial Exam PE: 06/25/17 22:56 06/25/17 22:56 Well-nourished, well-developed 57-year-old female with diffuse scattered wheezing in all lung currie Head normocephalic, atraumatic. Throat no exudate Neck supple, no JVD. Lungs diffuse scattered wheezing in all lung currie CVS regular rate and rhythm S1, S2 no gallops or rubs. Abdominal exam soft, no guarding, no rebound. Extremities no significant pitting edema Skin is warm and dry. Neuro patient is alert and oriented 3, ambulating with ease in the emergency department. Psych she is appropriate - Medical Decision Making 06/25/17 22:58 pt received steroids and bronchodilators but c/o still not feeling well LABS reviewed and unremarkable, neg trop,cbc wnl, cxr no infiltrates,ekg is unchanged from previous ekg spoke w Dr Cristal Moran who agrees to admit med/surg OBS, influenza negative IMP asthma exacerbation
[2017-06-25] MEDS ORDERED: ALBUTEROL SO4 18 GM HFA INHALER IH PRN (22:39)
[2017-06-25] MEDS ORDERED: clonazePAM 0.5 MG TABLET PO PRN (22:39)
[2017-06-26] MEDS: methylPREDNISolone NA SUCC 40 MG/1 ML VIAL IVPB SCH ×3 (03:30→18:14)
[2017-06-26] MEDS ORDERED: methylPREDNISolone NA SUCC 40 MG/1 ML VIAL ONE (03:31)
[2017-06-26 04:59] VITALS: BMI 30.9
[2017-06-26] MEDS ORDERED: ACETAMINOPHEN 325 MG TABLET (FP) PO PRN (09:00)
[2017-06-26] MEDS ORDERED: ALBUTEROL SO4 2.5/IPRATROPIUM 0.5 INH SOL 3 ML VIAL.NEB. NEB PRN (09:04)
--- NOTE | 2017-06-26 09:05 | HP ---
Admitting History and Physical - Primary Care Physician PCP: Cristal Ludwig - Admission Chief Complaint: sob History of Present Illness: 57 yo F with h/o asthma, COPD, CVA, and HTN who presents with SOB. Patient reports increased work of breathing and SOB over the past 24-48 hours. She endorses flu like illness 3 weeks ago that has slowly resolved. Complains of chest tightness with inhalation, general malaise/fatigue, baseline non productive cough without increased sputum production, or frequency. Denies fevers/chills, N/V, hemoptysis, chest pain, jaw/neck pain, diaphoresis, weakness , numbness/tingling, extremity swelling, calf pain/tenderness, dizziness, abdominal or urinary complaints. Denies home O2 requirements, but reports increased duoneb use over past two days. No home steroid use. Denies h/o DVT/PE , recent trauma/surgery, or h/o malignancy. Smoking cessation 5 years ago with 1 PPD 20 year history. patient well known to me from office/previous hospitalizations patient found to be in COPD examination patient started on steroids and admitted to the floor Patient seen by me on the floor Chart reviewed Patient feeling slightly better Denies chest pain Still short of breath denies abdominal pain No headache or dizziness Denies urinary or bowel trouble Mood is stable Afebrile History Source: Patient Limitations to Obtaining History: No Limitations - Past Medical History Cardiovascular: Yes: HTN Pulmonary: Yes: COPD Gastrointestinal: Yes: Other (HERNIA REPAIR WITH COMPLICATIONS AND POST OP SBO) ...LMP: 08/04/13 Heme/Onc: Yes: B12 Deficiency Psych: Yes: Anxiety Musculoskeletal: Yes: Osteoarthritis, Other (KNEE SURGERY) Rheumatology: Yes: Other (OSTEOARTHRITIS) - Past Surgical History Past Surgical History: Yes: Hernia Repair - Smoking History Smoking history: Former smoker Have you smoked in the past 12 months: No Aproximately how many cigarettes per day: 0 If you are a former smoker, when did you quit?: 5 YRS - Alcohol/Substance Use Hx Alcohol Use: Yes (SOCIAL) History of Substance Use: reports: None - Social History History of Recent Travel: No Home Medications - Allergies Allergies/Adverse Reactions: Allergies Allergy/AdvReac Type Severity Reaction Status Date / Time Penicillins Allergy Hives Verified 04/15/17 15:48 Sulfa (Sulfonamide Allergy Hives Verified 04/15/17 15:48 Antibiotics) [Sulfa(Sulfonamide Antibiotics)] - Home Medications Home Medications: Ambulatory Orders Atorvastatin Ca [Lipitor] 10 mg PO HS 06/24/15 Roflumilast [Daliresp] 500 mcg PO DAILY 06/24/15 Tiotropium [place] [Spiriva] 1 inh PO DAILY 06/24/15 Aspirin [ASA -] 81 mg PO DAILY 03/21/16 Cyanocobalamin [Vitamin B12 -] 1,000 mcg PO DAILY tablet 03/28/16 Diltiazem Cd [Cardizem Cd -] 180 mg PO DAILY #60 cap.cd.24h 06/08/16 Amitriptyline HCl [Elavil -] 25 mg PO HS 09/23/16 Clonazepam [Klonopin -] 0.5 mg PO PRN PRN 11/23/16 [place]-3 Fatty Acids [Fish Oil] 300 mg PO DAILY 11/23/16 Salmeterol/Fluticasone [Advair 500Mcg/50Mcg -] 1 inh PO BID 11/23/16 Albuterol Sulfate Inhaler - [Ventolin HFA Inhaler -] 1 - 2 inh PO Q4H PRN #1 inhaler 12/11/16 Famotidine [Pepcid] 40 mg PO HS 04/15/17 Cholecalciferol (Vitamin D3) [Vitamin D3 -] 2,000 unit PO DAILY 04/16/17 Oxycodone HCl/Acetaminophen [Percocet 5-325 mg Tablet] 1 tab PO Q6H PRN #10 tablet MDD 4 04/19/17 Clonazepam [Klonopin -] 0.5 mg PO Q6H PRN #30 tablet MDD 3 04/20/17 Family Disease History - Family Disease History Family Disease History: CA: Father (Lung CA), Other: Mother (HTN) Review of Systems Findings/Remarks: see [place] Physical Examination Vital Signs: Vital Signs Temperature 97.9 F 06/26/17 04:53 Pulse Rate 100 H 06/26/17 04:53 Respiratory Rate 20 06/26/17 05:01 Blood Pressure 147/92 06/26/17 04:53 O2 Sat by Pulse Oximetry (%) 96 06/26/17 05:01 Constitutional: Yes: Mild Distress Eyes: Yes: Conjunctiva Clear Neck: Yes: Supple Cardiovascular: Yes: Regular Rate and Rhythm Respiratory: Yes: Wheezes Gastrointestinal: Yes: Normal Bowel Sounds, Soft Edema: No Neurological: Yes: Alert Imaging - Results Chest X-ray: Report Reviewed Problem List - Problems (1) COPD exacerbation Code(s): J44.1 - CHRONIC OBSTRUCTIVE PULMONARY DISEASE W (ACUTE) EXACERBATION (2) Acute exacerbation of chronic obstructive pulmonary disease (COPD) Code(s): J44.1 - CHRONIC OBSTRUCTIVE PULMONARY DISEASE W (ACUTE) EXACERBATION (3) HTN (hypertension) Code(s): I10 - ESSENTIAL (PRIMARY) HYPERTENSION Qualifiers: Hypertension type: essential hypertension Qualified Code(s): I10 - Essential (primary) hypertension; I10 - Essential (primary) hypertension; I10 - Essential (primary) hypertension (4) Anxiety Code(s): F41.9 - ANXIETY DISORDER, UNSPECIFIED Assessment/Plan continue steroids Nebulizer treatment Pulmonary evaluation Patient wants regular food only--do not want low-salt diet Will change DVT prophylaxis Continue other medications. Will follow.
[2017-06-26] MEDS ORDERED: ALBUTEROL SO4 2.5/IPRATROPIUM 0.5 INH SOL 3 ML VIAL.NEB. NEB SCH ×2 (09:15→09:27)
[2017-06-26 11:12] LABS: BASOPHIL 0.2 % (0-2.0); MCH 29.6 pg (25.7-33.7); MCHC 33.4 g/dl (32.0-36.0); MEAN CELL VOLUME 88.7 fl (80-96); MEAN PLT VOLUME 7.3 fl (7.5-11.1); NEUTROPHILS 87.2 % (42.8-82.8); PLATELET COUNT 359 K/MM3 (134-434); RDW 14.5 % (11.6-15.6); WHITE BLOOD COUNT 7.3 K/mm3 (4.0-10.0)
[2017-06-26] MEDS: ASPIRIN 81 MG CHEWABLE TABLETS PO SCH (11:22)
[2017-06-26] MEDS: ENOXAPARIN NA (PORCINE) 40 MG/0.4 ML DISP.SYRIN SQ SCH (11:23)
[2017-06-26] MEDS: TIOTROPIUM BROMIDE 18 MCG/INH (DEVICE W/ 5 CAPSULES) IH SCH (11:24)
[2017-06-26 11:31] LABS: ALBUMIN 3.9 g/dl (3.4-5.0); ALK PHOS 111 U/L (45-117); ANION GAP 13 (8-16); BILIRUBIN,TOTAL 0.7 mg/dL (0.2-1.0); CALCIUM 9.5 mg/dL (8.5-10.1); CO2 20 mmol/L (21-32); CREATININE 0.7 mg/dL (0.55-1.02); GLUCOSE,RANDOM 158 mg/dL (74-106); SGOT/AST 9 U/L (15-37); SGPT/ALT 18 U/L (12-78); TOT PROT 7.1 g/dl (6.4-8.2)
[2017-06-26] MEDS: ROFLUMILAST 500 MCG TABLET PO SCH ×2 (11:56→16:45)
--- NOTE | 2017-06-26 12:26 | CON.PULM ---
Consult Consult Specialty:: PULM/CCCM Referred by:: ZENA Reason for Consultation:: SOB - History of Present Illness Chief Complaint: SOB History of Present Illness: 57 F, asthma, COPD, CVA, and HTN. Admitted via the ER due to increasing SOB since Monday. Patient reports that her granddaughter has been having URI symptoms. He granddaughter sleeps in the same bed with her. She notes increasing congested cough, SOB, and GONCALVES. Patient reports that she had similar symptoms about 2 weeks ago but they resolved with increased usage of her albuterol. No ABX or steroids were taken. No travel history or sick contacts. No hemoptysis. - History Source History Provided By: Patient Limitations to Obtaining History: No Limitations - Past Medical History Cardio/Vascular: Yes: HTN Pulmonary: Yes: COPD Gastrointestinal: Yes: Other (HERNIA REPAIR WITH COMPLICATIONS AND POST OP SBO) ...LMP: 08/04/13 Psych: Yes: Anxiety Musculoskeletal: Yes: Osteoarthritis, Other (KNEE SURGERY) Rheumatology: Yes: Other (OSTEOARTHRITIS) - Past Surgical History Past Surgical History: Yes: Hernia Repair - Alcohol/Substance Use Hx Alcohol Use: Yes (SOCIAL) History of Substance Use: reports: None - Smoking History Smoking history: Former smoker Have you smoked in the past 12 months: No Aproximately how many cigarettes per day: 0 If you are a former smoker, when did you quit?: 5 YRS - Social History History of Recent Travel: No Home Medications - Allergies Allergies/Adverse Reactions: Allergies Allergy/AdvReac Type Severity Reaction Status Date / Time Penicillins Allergy Hives Verified 04/15/17 15:48 Sulfa (Sulfonamide Allergy Hives Verified 04/15/17 15:48 Antibiotics) [Sulfa(Sulfonamide Antibiotics)] - Home Medications Home Medications: Ambulatory Orders Atorvastatin Ca [Lipitor] 10 mg PO HS 06/24/15 Roflumilast [Daliresp] 500 mcg PO DAILY 06/24/15 Tiotropium [place] [Spiriva] 1 inh PO DAILY 06/24/15 Aspirin [ASA -] 81 mg PO DAILY 03/21/16 Cyanocobalamin [Vitamin B12 -] 1,000 mcg PO DAILY tablet 03/28/16 Diltiazem Cd [Cardizem Cd -] 180 mg PO DAILY #60 cap.cd.24h 06/08/16 Amitriptyline HCl [Elavil -] 25 mg PO HS 09/23/16 Clonazepam [Klonopin -] 0.5 mg PO PRN PRN 11/23/16 [place]-3 Fatty Acids [Fish Oil] 300 mg PO DAILY 11/23/16 Salmeterol/Fluticasone [Advair 500Mcg/50Mcg -] 1 inh PO BID 11/23/16 Albuterol Sulfate Inhaler - [Ventolin HFA Inhaler -] 1 - 2 inh PO Q4H PRN #1 inhaler 12/11/16 Famotidine [Pepcid] 40 mg PO HS 04/15/17 Cholecalciferol (Vitamin D3) [Vitamin D3 -] 2,000 unit PO DAILY 04/16/17 Oxycodone HCl/Acetaminophen [Percocet 5-325 mg Tablet] 1 tab PO Q6H PRN #10 tablet MDD 4 04/19/17 Clonazepam [Klonopin -] 0.5 mg PO Q6H PRN #30 tablet MDD 3 04/20/17 Family Disease History - Family Disease History Family Disease History: CA: Father (Lung CA), Other: Mother (HTN) Review of Systems - Review of Systems Constitutional: reports: Malaise, Weakness. denies: Chills, Fever, Night Sweats , Unintentional Wgt. Loss Eyes: reports: No Symptoms HENT: reports: No Symptoms Neck: reports: No Symptoms Cardiovascular: reports: Shortness of Breath. denies: Chest Pain, Edema, Palpitations Respiratory: reports: Cough, SOB, SOB on Exertion, Wheezing. denies: Hemoptysis , Snoring Gastrointestinal: reports: No Symptoms Genitourinary: reports: No Symptoms Breasts: reports: No Symptoms Reported Musculoskeletal: reports: No Symptoms Integumentary: reports: No Symptoms Neurological: reports: No Symptoms Endocrine: reports: No Symptoms Hematology/Lymphatic: reports: No Symptoms Psychiatric: reports: No Symptoms Physical Exam Vital Sings: Vital Signs Temperature 98.2 F 06/26/17 09:10 Pulse Rate 108 H 06/26/17 09:10 Respiratory Rate 20 06/26/17 09:10 Blood Pressure 155/84 06/26/17 09:10 O2 Sat by Pulse Oximetry (%) 96 06/26/17 05:01 Constitutional: Yes: No Distress, Calm Eyes: Yes: Conjunctiva Clear, EOM Intact HENT: Yes: Atraumatic, Normocephalic Neck: Yes: Supple, Trachea Midline Cardiovascular: Yes: Regular Rate and Rhythm Respiratory: Yes: Cough, Diminished, On Nasal O2, Rhonchi, Wheezes. No: Accessory Muscle Use, Stridor, Tachypnea ...Inspection: Yes: WNL ...Clubbing: No Gastrointestinal: Yes: Normal Bowel Sounds, Soft, Abdomen, Obese Renal/: Yes: WNL Musculoskeletal: Yes: WNL Extremities: Yes: WNL Edema: No Peripheral Pulses WNL: Yes Integumentary: Yes: WNL Neurological: Yes: WNL, Alert, Oriented ...Motor Strength: WNL Psychiatric: Yes: WNL, Alert, Oriented Labs: CBC, BMP 06/26/17 10:40 06/26/17 10:40 Imaging - Results Chest X-ray: Report Reviewed, Image Reviewed Problem List - Problems (1) Asthma with COPD Code(s): J44.9 - CHRONIC OBSTRUCTIVE PULMONARY DISEASE, UNSPECIFIED J45.909 - UNSPECIFIED ASTHMA, UNCOMPLICATED (2) COPD (chronic obstructive pulmonary disease) with acute bronchitis Code(s): J44.0 - CHRONIC OBSTRUCTIVE PULMON DISEASE W ACUTE LOWER RESP INFCT (3) COPD exacerbation Code(s): J44.1 - CHRONIC OBSTRUCTIVE PULMONARY DISEASE W (ACUTE) EXACERBATION (4) Abdominal pain Code(s): R10.9 - UNSPECIFIED ABDOMINAL PAIN Qualifiers: Abdominal location: epigastric Qualified Code(s): R10.13 - Epigastric pain; R10.13 - Epigastric pain (5) Anxiety Code(s): F41.9 - ANXIETY DISORDER, UNSPECIFIED (6) HTN (hypertension) Code(s): I10 - ESSENTIAL (PRIMARY) HYPERTENSION Qualifiers: Hypertension type: essential hypertension Qualified Code(s): I10 - Essential (primary) hypertension; I10 - Essential (primary) hypertension; I10 - Essential (primary) hypertension (7) Sleep apnea Code(s): G47.30 - SLEEP APNEA, UNSPECIFIED (8) Wheezing Code(s): R06.2 - WHEEZING Assessment/Plan Medrol BD TX Spiriva Daliresp O2 as needed VTE prophylaxis Monitor off ABX No smoking counseled Need to re-address sleep apnea management after discharge Thank you. Dr Fang
[2017-06-26] MEDS: ALBUTEROL SO4 0.083% IH SOL 2.5 MG/3 ML VIAL.NEB. NEB SCH ×2 (17:26→22:44)
[2017-06-26] MEDS ORDERED: PT OWN MED DRAWER 7, Y5N ONE (21:50)
[2017-06-26] MEDS: RANITIDINE HCL 150 MG TABLET (FP) PO SCH ×2 (22:21→22:26)
[2017-06-26] MEDS: AMITRIPTYLINE HCL 25 MG TABLET (FP) PO SCH (22:26)
[2017-06-26] MEDS: ATORVASTATIN CA 10 MG TABLET (FP) PO SCH (22:27)
[2017-06-27] MEDS: methylPREDNISolone NA SUCC 40 MG/1 ML VIAL IVPB SCH ×3 (01:39→18:40)
[2017-06-27] MEDS: ALBUTEROL SO4 0.083% IH SOL 2.5 MG/3 ML VIAL.NEB. NEB SCH ×3 (06:19→21:37)
--- NOTE | 2017-06-27 07:35 | EKG ---
Test Reason : Blood Pressure : / mmHG Vent. Rate : 097 BPM Atrial Rate : 097 BPM P-R Int : 146 ms QRS Dur : 084 ms QT Int : 340 ms P-R-T Axes : 067 014 052 degrees QTc Int : 431 ms NORMAL SINUS RHYTHM POSSIBLE LEFT ATRIAL ENLARGEMENT BORDERLINE ECG WHEN COMPARED WITH ECG OF 15-APR-2017 18:04, NO SIGNIFICANT CHANGE WAS FOUND Confirmed by CHARLIE CALLE MD ([id number]) on 06/27/2017 7:35:02 AM Referred By: Confirmed By:CHARLIE CALLE MD
[2017-06-27] MEDS ORDERED: PT OWN MED DRAWER 7, Y5N ONE ×2 (11:22→21:37)
[2017-06-27] MEDS: ENOXAPARIN NA (PORCINE) 40 MG/0.4 ML DISP.SYRIN SQ SCH (11:44)
[2017-06-27] MEDS: ASPIRIN 81 MG CHEWABLE TABLETS PO SCH (11:44)
[2017-06-27] MEDS: ROFLUMILAST 500 MCG TABLET PO SCH (11:45)
[2017-06-27] MEDS: TIOTROPIUM BROMIDE 18 MCG/INH (DEVICE W/ 5 CAPSULES) IH SCH (11:49)
--- NOTE | 2017-06-27 12:09 | PN ---
Progress Note, Physician Chief Complaint: has difficulty breathing out no cough no fever - Current Medication List Current Medications: Active Medications Acetaminophen (Tylenol -) 650 mg PO Q4H PRN PRN Reason: FEVER OR PAIN Last Admin: 06/26/17 16:05 Dose: 650 mg Albuterol Sulfate (Ventolin Hfa Inhaler -) 2 puff IH Q4H PRN PRN Reason: DIFFICULTY BREATHING Albuterol Sulfate (Ventolin 0.083% Nebulizer Soln -) 1 amp NEB [facility] Last Admin: 06/27/17 06:19 Dose: Not Given Amitriptyline HCl (Elavil -) 25 mg PO HS [facility] Last Admin: 06/26/17 22:26 Dose: 25 mg Aspirin (Asa -) 81 mg PO DAILY [facility] Last Admin: 06/27/17 11:44 Dose: 81 mg Atorvastatin Calcium (Lipitor -) 10 mg PO [facility] Last Admin: 06/26/17 22:27 Dose: 10 mg Clonazepam (Klonopin -) 0.5 mg PO Q6H PRN PRN Reason: ANXIETY Diltiazem HCl (Cardizem Cd -) 180 mg PO DAILY [facility] Last Admin: 06/27/17 11:44 Dose: 180 mg Enoxaparin Sodium (Lovenox -) 40 mg SQ DAILY [facility] Last Admin: 06/27/17 11:44 Dose: 40 mg Methylprednisolone Sodium Succinate (Solu-Medrol -) 40 mg IVPB Q8H-IV [facility] Last Admin: 06/27/17 11:45 Dose: 40 mg Oxycodone/Acetaminophen (Percocet 5/325 -) 1 combo PO Q6H PRN PRN Reason: SEVERE PAIN Ranitidine HCl (Zantac -) 300 mg PO [facility] Last Admin: 06/26/17 22:26 Dose: 300 mg Roflumilast (Daliresp -) 500 mcg PO DAILY [facility] Last Admin: 06/27/17 11:45 Dose: 500 mcg Tiotropium [place] (Spiriva -) 1 puff IH DAILY [facility] Last Admin: 06/27/17 11:49 Dose: 1 puff - Objective Vital Signs: Vital Signs Temperature 97.7 F 06/27/17 06:15 Pulse Rate 90 06/27/17 06:15 Respiratory Rate 20 06/27/17 06:15 Blood Pressure 118/71 06/27/17 06:15 O2 Sat by Pulse Oximetry (%) 96 06/26/17 21:00 Constitutional: Yes: No Distress Cardiovascular: Yes: Regular Rate and Rhythm Respiratory: Yes: Diminished, Rhonchi Gastrointestinal: Yes: Normal Bowel Sounds, Soft. No: Tenderness Edema: No Labs: CBC, BMP 06/26/17 10:40 06/26/17 10:40 Problem List - Problems (1) COPD (chronic obstructive pulmonary disease) with acute bronchitis Code(s): J44.0 - CHRONIC OBSTRUCTIVE PULMON DISEASE W ACUTE LOWER RESP INFCT (2) Anxiety Code(s): F41.9 - ANXIETY DISORDER, UNSPECIFIED (3) HTN (hypertension) Code(s): I10 - ESSENTIAL (PRIMARY) HYPERTENSION Qualifiers: Hypertension type: essential hypertension Qualified Code(s): I10 - Essential (primary) hypertension Assessment/Plan PLAN continue current dose of solumedrol on cardizem continue with nebs OOB daily Lovenox sc for DVT prophylaxis
--- NOTE | 2017-06-27 15:03 | PN ---
Progress Note (short form) - Note Progress Note: Feels about the same. Still with wheezing. No CP. Congested cough. Intake & Output 06/25/17 06/25/17 06/26/17 06/27/17 00:59 23:59 23:59 23:59 Intake Total 1400 Balance 1400 Weight 175 lb Last Vital Signs Temp Pulse Resp BP Pulse Ox 97.7 F 90 20 118/71 96 06/27/17 06:15 06/27/17 06:15 06/27/17 06:15 06/27/17 06:15 06/26/17 21:00 Active Medications Acetaminophen (Tylenol -) 650 mg PO Q4H PRN PRN Reason: FEVER OR PAIN Last Admin: 06/26/17 16:05 Dose: 650 mg Albuterol Sulfate (Ventolin Hfa Inhaler -) 2 puff IH Q4H PRN PRN Reason: DIFFICULTY BREATHING Albuterol Sulfate (Ventolin 0.083% Nebulizer Soln -) 1 amp NEB TIDR [facility] Last Admin: 06/27/17 13:45 Dose: 1 amp Amitriptyline HCl (Elavil -) 25 mg PO [facility] Last Admin: 06/26/17 22:26 Dose: 25 mg Aspirin (Asa -) 81 mg PO DAILY [facility] Last Admin: 06/27/17 11:44 Dose: 81 mg Atorvastatin Calcium (Lipitor -) 10 mg PO [facility] Last Admin: 06/26/17 22:27 Dose: 10 mg Clonazepam (Klonopin -) 0.5 mg PO Q6H PRN PRN Reason: ANXIETY Diltiazem HCl (Cardizem Cd -) 180 mg PO DAILY [facility] Last Admin: 06/27/17 11:44 Dose: 180 mg Enoxaparin Sodium (Lovenox -) 40 mg SQ DAILY [facility] Last Admin: 06/27/17 11:44 Dose: 40 mg Methylprednisolone Sodium Succinate (Solu-Medrol -) 40 mg IVPB Q8H-IV [facility] Last Admin: 06/27/17 11:45 Dose: 40 mg Oxycodone/Acetaminophen (Percocet 5/325 -) 1 combo PO Q6H PRN PRN Reason: SEVERE PAIN Ranitidine HCl (Zantac -) 300 mg PO [facility] Last Admin: 06/26/17 22:26 Dose: 300 mg Roflumilast (Daliresp -) 500 mcg PO DAILY [facility] Last Admin: 06/27/17 11:45 Dose: 500 mcg Tiotropium [place] (Spiriva -) 1 puff IH DAILY [facility] Last Admin: 06/27/17 11:49 Dose: 1 puff Constitutional: Yes: No Distress Eyes: Yes: Conjunctiva Clear, EOM Intact HENT: Yes: Atraumatic, Normocephalic Neck: Yes: Supple, Trachea Midline Cardiovascular: Yes: Regular Rate and Rhythm Respiratory: Yes: Cough, Diminished, On Nasal O2, Rhonchi, Expiratory Wheezes. No: Accessory Muscle Use, Stridor, Tachypnea ...Inspection: Yes: WNL ...Clubbing: No Gastrointestinal: Yes: Normal Bowel Sounds, Soft, Abdomen, Obese Renal/: Yes: WNL Musculoskeletal: Yes: WNL Extremities: Yes: WNL Edema: No Peripheral Pulses WNL: Yes Integumentary: Yes: WNL Neurological: Yes: WNL, Alert, Oriented ...Motor Strength: WNL Psychiatric: Yes: WNL, Alert, Oriented Labs: Problem List - Problems (1) Asthma with COPD Code(s): J44.9 - CHRONIC OBSTRUCTIVE PULMONARY DISEASE, UNSPECIFIED J45.909 - UNSPECIFIED ASTHMA, UNCOMPLICATED (2) COPD (chronic obstructive pulmonary disease) with acute bronchitis Code(s): J44.0 - CHRONIC OBSTRUCTIVE PULMON DISEASE W ACUTE LOWER RESP INFCT (3) COPD exacerbation Code(s): J44.1 - CHRONIC OBSTRUCTIVE PULMONARY DISEASE W (ACUTE) EXACERBATION (4) Abdominal pain Code(s): R10.9 - UNSPECIFIED ABDOMINAL PAIN Qualifiers: Abdominal location: epigastric Qualified Code(s): R10.13 - Epigastric pain; R10.13 - Epigastric pain (5) Anxiety Code(s): F41.9 - ANXIETY DISORDER, UNSPECIFIED (6) HTN (hypertension) Code(s): I10 - ESSENTIAL (PRIMARY) HYPERTENSION Qualifiers: Hypertension type: essential hypertension Qualified Code(s): I10 - Essential (primary) hypertension; I10 - Essential (primary) hypertension; I10 - Essential (primary) hypertension (7) Sleep apnea Code(s): G47.30 - SLEEP APNEA, UNSPECIFIED (8) Wheezing Code(s): R06.2 - WHEEZING Assessment/Plan Medrol at same dose BD TX Spiriva Daliresp O2 as needed VTE prophylaxis Monitor off ABX No smoking counseled Need to re-address sleep apnea management after discharge Dr Fang Problem List - Problems (1) Asthma with COPD Code(s): J44.9 - CHRONIC OBSTRUCTIVE PULMONARY DISEASE, UNSPECIFIED J45.909 - UNSPECIFIED ASTHMA, UNCOMPLICATED (2) COPD (chronic obstructive pulmonary disease) with acute bronchitis Code(s): J44.0 - CHRONIC OBSTRUCTIVE PULMON DISEASE W ACUTE LOWER RESP INFCT (3) COPD exacerbation Code(s): J44.1 - CHRONIC OBSTRUCTIVE PULMONARY DISEASE W (ACUTE) EXACERBATION (4) Abdominal pain Code(s): R10.9 - UNSPECIFIED ABDOMINAL PAIN Qualifiers: Abdominal location: epigastric Qualified Code(s): R10.13 - Epigastric pain; R10.13 - Epigastric pain (5) Anxiety Code(s): F41.9 - ANXIETY DISORDER, UNSPECIFIED (6) HTN (hypertension) Code(s): I10 - ESSENTIAL (PRIMARY) HYPERTENSION Qualifiers: Hypertension type: essential hypertension Qualified Code(s): I10 - Essential (primary) hypertension; I10 - Essential (primary) hypertension; I10 - Essential (primary) hypertension (7) Sleep apnea Code(s): G47.30 - SLEEP APNEA, UNSPECIFIED (8) Wheezing Code(s): R06.2 - WHEEZING
[2017-06-27] MEDS: AMITRIPTYLINE HCL 25 MG TABLET (FP) PO SCH (22:02)
[2017-06-27] MEDS: ATORVASTATIN CA 10 MG TABLET (FP) PO SCH (22:02)
[2017-06-27] MEDS: RANITIDINE HCL 150 MG TABLET (FP) PO SCH (22:02)
[2017-06-28] MEDS: methylPREDNISolone NA SUCC 40 MG/1 ML VIAL IVPB SCH ×4 (02:41→21:40)
[2017-06-28] MEDS ORDERED: PT OWN MED DRAWER 7, Y5N ONE ×2 (09:31→21:33)
[2017-06-28] MEDS: ENOXAPARIN NA (PORCINE) 40 MG/0.4 ML DISP.SYRIN SQ SCH (09:48)
[2017-06-28] MEDS: ROFLUMILAST 500 MCG TABLET PO SCH (09:48)
[2017-06-28] MEDS: ASPIRIN 81 MG CHEWABLE TABLETS PO SCH (09:48)
[2017-06-28] MEDS: TIOTROPIUM BROMIDE 18 MCG/INH (DEVICE W/ 5 CAPSULES) IH SCH (09:53)
--- NOTE | 2017-06-28 12:08 | PN ---
Progress Note, Physician Chief Complaint: better today no SOB - Current Medication List Current Medications: Active Medications Acetaminophen (Tylenol -) 650 mg PO Q4H PRN PRN Reason: FEVER OR PAIN Last Admin: 06/26/17 16:05 Dose: 650 mg Albuterol Sulfate (Ventolin Hfa Inhaler -) 2 puff IH Q4H PRN PRN Reason: DIFFICULTY BREATHING Albuterol Sulfate (Ventolin 0.083% Nebulizer Soln -) 1 amp NEB TIDR [facility] Last Admin: 06/27/17 21:37 Dose: 1 amp Amitriptyline HCl (Elavil -) 25 mg PO HS [facility] Last Admin: 06/27/17 22:02 Dose: 25 mg Aspirin (Asa -) 81 mg PO DAILY [facility] Last Admin: 06/27/17 11:44 Dose: 81 mg Atorvastatin Calcium (Lipitor -) 10 mg PO [facility] Last Admin: 06/27/17 22:02 Dose: 10 mg Clonazepam (Klonopin -) 0.5 mg PO Q6H PRN PRN Reason: ANXIETY Diltiazem HCl (Cardizem Cd -) 180 mg PO DAILY [facility] Last Admin: 06/27/17 11:44 Dose: 180 mg Enoxaparin Sodium (Lovenox -) 40 mg SQ DAILY [facility] Last Admin: 06/27/17 11:44 Dose: 40 mg Methylprednisolone Sodium Succinate (Solu-Medrol -) 40 mg IVPB Q8H-IV [facility] Last Admin: 06/28/17 02:41 Dose: 40 mg Oxycodone/Acetaminophen (Percocet 5/325 -) 1 combo PO Q6H PRN PRN Reason: SEVERE PAIN Ranitidine HCl (Zantac -) 300 mg PO [facility] Last Admin: 06/27/17 22:02 Dose: 300 mg Roflumilast (Daliresp -) 500 mcg PO DAILY [facility] Last Admin: 06/27/17 11:45 Dose: 500 mcg Tiotropium [place] (Spiriva -) 1 puff IH DAILY [facility] Last Admin: 06/28/17 09:53 Dose: 1 puff - Objective Vital Signs: Vital Signs Temperature 97.8 F 06/28/17 10:00 Pulse Rate 79 06/28/17 12:05 Respiratory Rate 20 06/28/17 10:00 Blood Pressure 127/83 06/28/17 10:00 O2 Sat by Pulse Oximetry (%) 95 06/28/17 12:05 Constitutional: Yes: No Distress Cardiovascular: Yes: Regular Rate and Rhythm Respiratory: Yes: Diminished, Rhonchi (decreased) Gastrointestinal: Yes: Normal Bowel Sounds, Soft. No: Distention Edema: No Labs: CBC, BMP 06/26/17 10:40 06/26/17 10:40 Problem List - Problems (1) COPD (chronic obstructive pulmonary disease) with acute bronchitis Code(s): J44.0 - CHRONIC OBSTRUCTIVE PULMON DISEASE W ACUTE LOWER RESP INFCT (2) Anxiety Code(s): F41.9 - ANXIETY DISORDER, UNSPECIFIED (3) HTN (hypertension) Code(s): I10 - ESSENTIAL (PRIMARY) HYPERTENSION Qualifiers: Hypertension type: essential hypertension Qualified Code(s): I10 - Essential (primary) hypertension Assessment/Plan PLAN taper solumedrol on cardizem continue with nebs OOB daily Lovenox sc for DVT prophylaxis Pulmonary eval noted
[2017-06-28] MEDS: ALBUTEROL SO4 0.083% IH SOL 2.5 MG/3 ML VIAL.NEB. NEB SCH ×2 (14:26→22:34)
--- NOTE | 2017-06-28 16:01 | PN ---
Progress Note (short form) - Note Progress Note: PULMONARY WELL KNOWN BY ME FROM PREVIOUS CONSULTATIONS VSS/AFEBRILE ANICTERIC SCATTERED B/L MINIMAL WHEEZE S1S2 RSR BS+ OBESE SOFT NO EDEMA LABS/MEDS/NOTES/IMAGES REVIEWED (1) Asthma with COPD Code(s): J44.9 - CHRONIC OBSTRUCTIVE PULMONARY DISEASE, UNSPECIFIED J45.909 - UNSPECIFIED ASTHMA, UNCOMPLICATED (2) COPD (chronic obstructive pulmonary disease) with acute bronchitis Code(s): J44.0 - CHRONIC OBSTRUCTIVE PULMON DISEASE W ACUTE LOWER RESP INFCT (3) COPD exacerbation Code(s): J44.1 - CHRONIC OBSTRUCTIVE PULMONARY DISEASE W (ACUTE) EXACERBATION (4) Abdominal pain Code(s): R10.9 - UNSPECIFIED ABDOMINAL PAIN Qualifiers: Abdominal location: epigastric Qualified Code(s): R10.13 - Epigastric pain; R10.13 - Epigastric pain (5) Anxiety Code(s): F41.9 - ANXIETY DISORDER, UNSPECIFIED (6) HTN (hypertension) Code(s): I10 - ESSENTIAL (PRIMARY) HYPERTENSION Qualifiers: Hypertension type: essential hypertension Qualified Code(s): I10 - Essential (primary) hypertension; I10 - Essential (primary) hypertension; I10 - Essential (primary) hypertension (7) Sleep apnea Code(s): G47.30 - SLEEP APNEA, UNSPECIFIED (8) Wheezing Code(s): R06.2 - WHEEZING Assessment/Plan Medrol BD TX Spiriva Daliresp O2 as needed VTE prophylaxis No smoking counseled [facility] to be evaluated as an outpatient. Ubaldo MALONEY MD
[2017-06-28] MEDS: RANITIDINE HCL 150 MG TABLET (FP) PO SCH (21:40)
[2017-06-28] MEDS: ATORVASTATIN CA 10 MG TABLET (FP) PO SCH (21:40)
[2017-06-28] MEDS: AMITRIPTYLINE HCL 25 MG TABLET (FP) PO SCH (21:50)
[2017-06-29] MEDS: ALBUTEROL SO4 0.083% IH SOL 2.5 MG/3 ML VIAL.NEB. NEB SCH ×3 (06:34→22:21)
[2017-06-29] MEDS ORDERED: PT OWN MED DRAWER 7, Y5N ONE ×2 (10:23→21:23)
[2017-06-29] MEDS: ROFLUMILAST 500 MCG TABLET PO SCH (10:28)
[2017-06-29] MEDS: ASPIRIN 81 MG CHEWABLE TABLETS PO SCH (10:28)
[2017-06-29] MEDS: TIOTROPIUM BROMIDE 18 MCG/INH (DEVICE W/ 5 CAPSULES) IH SCH (10:29)
[2017-06-29] MEDS: ENOXAPARIN NA (PORCINE) 40 MG/0.4 ML DISP.SYRIN SQ SCH (10:29)
[2017-06-29] MEDS: methylPREDNISolone NA SUCC 40 MG/1 ML VIAL IVPB SCH ×2 (10:56→21:26)
--- NOTE | 2017-06-29 11:38 | PN ---
Progress Note, Physician Chief Complaint: no sob no dizziness, no chest pain - Current Medication List Current Medications: Active Medications Acetaminophen (Tylenol -) 650 mg PO Q4H PRN PRN Reason: FEVER OR PAIN Last Admin: 06/26/17 16:05 Dose: 650 mg Albuterol Sulfate (Ventolin Hfa Inhaler -) 2 puff IH Q4H PRN PRN Reason: DIFFICULTY BREATHING Albuterol Sulfate (Ventolin 0.083% Nebulizer Soln -) 1 amp NEB TIDR [facility] Last Admin: 06/29/17 06:34 Dose: Not Given Amitriptyline HCl (Elavil -) 25 mg PO HS [facility] Last Admin: 06/28/17 21:50 Dose: 25 mg Aspirin (Asa -) 81 mg PO DAILY [facility] Last Admin: 06/29/17 10:28 Dose: 81 mg Atorvastatin Calcium (Lipitor -) 10 mg PO HS [facility] Last Admin: 06/28/17 21:40 Dose: 10 mg Clonazepam (Klonopin -) 0.5 mg PO Q6H PRN PRN Reason: ANXIETY Diltiazem HCl (Cardizem Cd -) 180 mg PO DAILY [facility] Last Admin: 06/29/17 10:28 Dose: 180 mg Enoxaparin Sodium (Lovenox -) 40 mg SQ DAILY [facility] Last Admin: 06/29/17 10:29 Dose: 40 mg Methylprednisolone Sodium Succinate (Solu-Medrol -) 40 mg IVPB BID [facility] Last Admin: 06/29/17 10:56 Dose: 40 mg Oxycodone/Acetaminophen (Percocet 5/325 -) 1 combo PO Q6H PRN PRN Reason: SEVERE PAIN Ranitidine HCl (Zantac -) 300 mg PO [facility] Last Admin: 06/28/17 21:40 Dose: 300 mg Roflumilast (Daliresp -) 500 mcg PO DAILY [facility] Last Admin: 06/29/17 10:28 Dose: 500 mcg Tiotropium [place] (Spiriva -) 1 puff IH DAILY [facility] Last Admin: 06/29/17 10:29 Dose: 1 puff - Objective Vital Signs: Vital Signs Temperature 97.8 F 06/29/17 01:58 Pulse Rate 63 06/29/17 11:12 Respiratory Rate 18 06/29/17 01:58 Blood Pressure 124/82 06/29/17 01:58 O2 Sat by Pulse Oximetry (%) 95 06/29/17 11:12 Constitutional: Yes: No Distress, Calm Cardiovascular: Yes: Regular Rate and Rhythm Respiratory: Yes: Diminished, Rhonchi Gastrointestinal: Yes: Normal Bowel Sounds, Soft. No: Abdomen, Obese, Distention, Tenderness Edema: No Labs: CBC, BMP 06/26/17 10:40 06/26/17 10:40 Problem List - Problems (1) COPD (chronic obstructive pulmonary disease) with acute bronchitis Code(s): J44.0 - CHRONIC OBSTRUCTIVE PULMON DISEASE W ACUTE LOWER RESP INFCT (2) Anxiety Code(s): F41.9 - ANXIETY DISORDER, UNSPECIFIED (3) HTN (hypertension) Code(s): I10 - ESSENTIAL (PRIMARY) HYPERTENSION Qualifiers: Hypertension type: essential hypertension Qualified Code(s): I10 - Essential (primary) hypertension Assessment/Plan PLAN continue Solumedrol at current dose on cardizem -- HR under control continue with nebs OOB daily, ambulate On contact isolation for h/o MRSA Lovenox sc for DVT prophylaxis Pulmonary follow up noted possible dc tomorrow if ok with Pulmonary
--- NOTE | 2017-06-29 12:26 | PN ---
Progress Note (short form) - Note Progress Note: Feels a little better. Still with some mild wheezing and congested cough. No CP. Intake & Output 06/26/17 06/27/17 06/28/17 06/29/17 23:59 23:59 23:59 23:59 Intake Total 1400 900 900 200 Balance 1400 900 900 200 Weight 175 lb Last Vital Signs Temp Pulse Resp BP Pulse Ox 97.8 F 63 20 143/87 95 06/29/17 10:00 06/29/17 11:12 06/29/17 10:00 06/29/17 10:00 06/29/17 11:12 Active Medications Acetaminophen (Tylenol -) 650 mg PO Q4H PRN PRN Reason: FEVER OR PAIN Last Admin: 06/26/17 16:05 Dose: 650 mg Albuterol Sulfate (Ventolin Hfa Inhaler -) 2 puff IH Q4H PRN PRN Reason: DIFFICULTY BREATHING Albuterol Sulfate (Ventolin 0.083% Nebulizer Soln -) 1 amp NEB TIDR [facility] Last Admin: 06/29/17 06:34 Dose: Not Given Amitriptyline HCl (Elavil -) [address] [facility] Last Admin: 06/28/17 21:50 Dose: 25 mg Aspirin (Asa -) 81 mg PO DAILY [facility] Last Admin: 06/29/17 10:28 Dose: 81 mg Atorvastatin Calcium (Lipitor -) 10 mg PO HS [facility] Last Admin: 06/28/17 21:40 Dose: 10 mg Clonazepam (Klonopin -) 0.5 mg PO Q6H PRN PRN Reason: ANXIETY Diltiazem HCl (Cardizem Cd -) 180 mg PO DAILY [facility] Last Admin: 06/29/17 10:28 Dose: 180 mg Enoxaparin Sodium (Lovenox -) 40 mg SQ DAILY [facility] Last Admin: 06/29/17 10:29 Dose: 40 mg Methylprednisolone Sodium Succinate (Solu-Medrol -) 40 mg IVPB BID [facility] Last Admin: 06/29/17 10:56 Dose: 40 mg Oxycodone/Acetaminophen (Percocet 5/325 -) 1 combo PO Q6H PRN PRN Reason: SEVERE PAIN Ranitidine HCl (Zantac -) 300 mg PO [facility] Last Admin: 06/28/17 21:40 Dose: 300 mg Roflumilast (Daliresp -) 500 mcg PO DAILY [facility] Last Admin: 06/29/17 10:28 Dose: 500 mcg Tiotropium [place] (Spiriva -) 1 puff IH DAILY [facility] Last Admin: 06/29/17 10:29 Dose: 1 puff Constitutional: Yes: No Distress Eyes: Yes: Conjunctiva Clear, EOM Intact HENT: Yes: Atraumatic, Normocephalic Neck: Yes: Supple, Trachea Midline Cardiovascular: Yes: Regular Rate and Rhythm Respiratory: Yes: Cough, Diminished, On Nasal O2, Rhonchi, Mild Expiratory Wheezes. No: Accessory Muscle Use, Stridor, Tachypnea ...Inspection: Yes: WNL ...Clubbing: No Gastrointestinal: Yes: Normal Bowel Sounds, Soft, Abdomen, Obese Renal/: Yes: WNL Musculoskeletal: Yes: WNL Extremities: Yes: WNL Edema: No Peripheral Pulses WNL: Yes Integumentary: Yes: WNL Neurological: Yes: WNL, Alert, Oriented ...Motor Strength: WNL Psychiatric: Yes: WNL, Alert, Oriented Labs: Problem List - Problems (1) Asthma with COPD Code(s): J44.9 - CHRONIC OBSTRUCTIVE PULMONARY DISEASE, UNSPECIFIED J45.909 - UNSPECIFIED ASTHMA, UNCOMPLICATED (2) COPD (chronic obstructive pulmonary disease) with acute bronchitis Code(s): J44.0 - CHRONIC OBSTRUCTIVE PULMON DISEASE W ACUTE LOWER RESP INFCT (3) COPD exacerbation Code(s): J44.1 - CHRONIC OBSTRUCTIVE PULMONARY DISEASE W (ACUTE) EXACERBATION (4) Abdominal pain Code(s): R10.9 - UNSPECIFIED ABDOMINAL PAIN Qualifiers: Abdominal location: epigastric Qualified Code(s): R10.13 - Epigastric pain; R10.13 - Epigastric pain (5) Anxiety Code(s): F41.9 - ANXIETY DISORDER, UNSPECIFIED (6) HTN (hypertension) Code(s): I10 - ESSENTIAL (PRIMARY) HYPERTENSION Qualifiers: Hypertension type: essential hypertension Qualified Code(s): I10 - Essential (primary) hypertension; I10 - Essential (primary) hypertension; I10 - Essential (primary) hypertension (7) Sleep apnea Code(s): G47.30 - SLEEP APNEA, UNSPECIFIED (8) Wheezing Code(s): R06.2 - WHEEZING Assessment/Plan Medrol at same dose -> can likely change to Prednisone and D/C home tomorrow BD TX Spiriva Daliresp O2 as needed VTE prophylaxis Monitor off ABX No smoking counseled Need to re-address sleep apnea management after discharge Dr Fang Problem List - Problems (1) COPD exacerbation Code(s): J44.1 - CHRONIC OBSTRUCTIVE PULMONARY DISEASE W (ACUTE) EXACERBATION (2) HTN (hypertension) Code(s): I10 - ESSENTIAL (PRIMARY) HYPERTENSION Qualifiers: Hypertension type: essential hypertension Qualified Code(s): I10 - Essential (primary) hypertension (3) Asthma with COPD Code(s): J44.9 - CHRONIC OBSTRUCTIVE PULMONARY DISEASE, UNSPECIFIED; J45.909 - UNSPECIFIED ASTHMA, UNCOMPLICATED (4) Sleep apnea Code(s): G47.30 - SLEEP APNEA, UNSPECIFIED (5) Anxiety Code(s): F41.9 - ANXIETY DISORDER, UNSPECIFIED (6) Abdominal pain Code(s): R10.9 - UNSPECIFIED ABDOMINAL PAIN Qualifiers: Abdominal location: epigastric Qualified Code(s): R10.13 - Epigastric pain (7) Wheezing Code(s): R06.2 - WHEEZING (8) COPD (chronic obstructive pulmonary disease) with acute bronchitis Code(s): J44.0 - CHRONIC OBSTRUCTIVE PULMON DISEASE W ACUTE LOWER RESP INFCT
[2017-06-29] MEDS ORDERED: FLU VACCINE QUAD 60 MCG/0.5 ML (MDV 17-18) IM ONE (15:45)
[2017-06-29] MEDS: AMITRIPTYLINE HCL 25 MG TABLET (FP) PO SCH (21:26)
[2017-06-29] MEDS: RANITIDINE HCL 150 MG TABLET (FP) PO SCH (21:26)
[2017-06-29] MEDS: ATORVASTATIN CA 10 MG TABLET (FP) PO SCH (21:26)
[2017-06-30 05:19] VITALS: TEMP 98
[2017-06-30] MEDS: ALBUTEROL SO4 0.083% IH SOL 2.5 MG/3 ML VIAL.NEB. NEB SCH (06:58)
[2017-06-30] MEDS ORDERED: PT OWN MED DRAWER 7, Y5N ONE (09:42)
[2017-06-30] MEDS: ENOXAPARIN NA (PORCINE) 40 MG/0.4 ML DISP.SYRIN SQ SCH (09:59)
[2017-06-30] MEDS: methylPREDNISolone NA SUCC 40 MG/1 ML VIAL IVPB SCH (09:59)
[2017-06-30] MEDS: ASPIRIN 81 MG CHEWABLE TABLETS PO SCH (09:59)
[2017-06-30] MEDS: TIOTROPIUM BROMIDE 18 MCG/INH (DEVICE W/ 5 CAPSULES) IH SCH (09:59)
[2017-06-30] MEDS: ROFLUMILAST 500 MCG TABLET PO SCH (09:59)
--- NOTE | 2017-06-30 10:42 | DS ---
Physical Examination Vital Signs: Vital Signs Temperature 98 F 06/30/17 05:19 Pulse Rate 66 06/30/17 05:19 Respiratory Rate 20 06/30/17 05:19 Blood Pressure 145/75 06/30/17 05:19 O2 Sat by Pulse Oximetry (%) 98 06/29/17 21:00 Findings/Remarks: feels better anxiety + breathing stable/ better. Constitutional: Yes: No Distress, Anxious Eyes: Yes: Conjunctiva Clear Neck: Yes: Supple Cardiovascular: Yes: Regular Rate and Rhythm Respiratory: Yes: Rhonchi (few scattered) Gastrointestinal: Yes: Normal Bowel Sounds, Soft Edema: No Neurological: Yes: Alert Labs: CBC, BMP 06/26/17 10:40 06/26/17 10:40 Discharge Summary Reason For Visit: COPD Current Active Problems COPD (chronic obstructive pulmonary disease) with acute bronchitis (Acute) Hospital Course: 57 yo F with h/o asthma, COPD, CVA, and HTN who presents with SOB. admitted for copd exac. treated with i/v steroids pulmonary followed. much better. will discharge today sleep studies as out pt- with pulmonary meds reconcilled. f/u in office - one week Condition: Stable - Instructions Referrals: Cristal Ludwig MD [Primary Care Provider] - Disposition: HOME - Home Medications Comprehensive Discharge Medication List: Ambulatory Orders Atorvastatin Ca [Lipitor] 10 mg PO HS 06/24/15 Roflumilast [Daliresp] 500 mcg PO DAILY 06/24/15 Tiotropium [place] [Spiriva] 1 inh PO DAILY 06/24/15 Aspirin [ASA -] 81 mg PO DAILY 03/21/16 Cyanocobalamin [Vitamin B12 -] 1,000 mcg PO DAILY tablet 03/28/16 Amitriptyline HCl [Elavil -] 25 mg PO HS 09/23/16 Clonazepam [Klonopin -] 0.5 mg PO PRN PRN 11/23/16 [place]-3 Fatty Acids [Fish Oil] 300 mg PO DAILY 11/23/16 Salmeterol/Fluticasone [Advair 500Mcg/50Mcg -] 1 inh PO BID 11/23/16 Cholecalciferol (Vitamin D3) [Vitamin D3 -] 2,000 unit PO DAILY 04/16/17 Acetaminophen [Tylenol .Regular Strength -] 650 mg PO Q4H PRN tablet 06/30/17 Albuterol 0.083% Nebulizer [place] [Ventolin 0.083% Nebulizer Soln -] 1 amp NEB TIDR #30 amp 06/30/17 Albuterol Sulfate Inhaler - [Ventolin HFA Inhaler -] 2 puff IH Q4H PRN #1 inhaler 06/30/17 Diltiazem Cd [Cardizem Cd -] 180 mg PO DAILY cap.cd.24h 06/30/17 Prednisone [Deltasone -] 10 mg PO DAILY #30 tablet 06/30/17 Ranitidine [Zantac -] 300 mg PO HS tablet 06/30/17
[2017-06-30 11:41] VITALS: BP 139/77; PULSE 84
== END 2017-06-30 14:10 | disposition home or self-care (01) | DRG 192 ==
LOC: JER 17:32 → JERBED 23:02 → J6S 06-26 04:25 → OBSVTOIN 06-26 09:00 → J6S 06-28 14:12
PROVIDERS: ADMIT Internal Medicine; ATTEND Internal Medicine
DX: J44.1 Chronic obstructive pulmonary disease with (acute) exacerbation (principal); J20.9 Acute bronchitis, unspecified; J44.0 Chronic obstructive pulmonary disease with (acute) lower respiratory infection; J45.909 Unspecified asthma, uncomplicated; F41.9 Anxiety disorder, unspecified; I10 Essential (primary) hypertension; G47.30 Sleep apnea, unspecified; Z87.891 Personal history of nicotine dependence
CPT/HCPCS: 36415; 71010-TC; 80053; 82550; 84484; 85025; 87804; 90688; 93005; 93010; 94640; 99284-25; G0008; G0378

== ENCOUNTER 2017-10-18 05:11 | Day surgery (SDC) | payer OTHER, BC ==
[2017-10-17 08:27] VITALS: BMI 30.9
[2017-10-18] MEDS ORDERED: BUPIVACAINE HCL/PF 0.5% (5MG/ML) 10 ML VIAL ONE (07:45)
[2017-10-18] MEDS ORDERED: LIDOCAINE 1%/EPI 1:100000 (20 ML MULTI DOSE VIAL) ONE (07:45)
[2017-10-18] MEDS ORDERED: SUCCINYLCHOLINE CHLORIDE 200 MG/10 ML VIAL ONE (07:54)
[2017-10-18] MEDS ORDERED: MIDAZOLAM HCL 2 MG/2 ML SINGLE DOSE VIAL ONE (07:54)
[2017-10-18] MEDS ORDERED: PROPOFOL 20 ML ONE (07:54)
[2017-10-18] MEDS ORDERED: CLINDAMYCIN PHOSPHATE 600 MG/4 ML VIAL ONE (07:56)
[2017-10-18] MEDS ORDERED: DEXAMETHASONE SOD PHOSPHATE 4 MG/1 ML VIAL ONE (07:56)
--- NOTE | 2017-10-18 08:07 | HP ---
[facility] - Chief Complaint Chief Complaint: right knee pain - Past Medical History Allergies/Adverse Reactions: Allergies Allergy/AdvReac Type Severity Reaction Status Date / Time Penicillins Allergy Hives Verified 10/17/17 08:27 Sulfa (Sulfonamide Allergy Hives Verified 10/17/17 08:27 Antibiotics) [Sulfa(Sulfonamide Antibiotics)] Cardiovascular: Yes: HTN Pulmonary: Yes: COPD Gastrointestinal: Yes: Other (HERNIA REPAIR WITH COMPLICATIONS AND POST OP SBO) ...LMP: 08/04/13 Heme/Onc: Yes: B12 Deficiency Musculoskeletal: Yes: Osteoarthritis, Other (KNEE SURGERY) Rheumatology: Yes: Other (OSTEOARTHRITIS) - Current Medications Current Medications: Home Medications Medication Instructions Recorded Atorvastatin Ca [Lipitor] 10 mg PO HS 06/24/15 Roflumilast [Daliresp] 500 mcg PO DAILY 06/24/15 Tiotropium [place] [Spiriva] 1 inh PO DAILY 06/24/15 Aspirin [ASA -] 81 mg PO DAILY 03/21/16 Cyanocobalamin [Vitamin B12 -] 1,000 mcg PO DAILY tablet 03/28/16 Amitriptyline HCl [Elavil -] 25 mg PO HS 09/23/16 [place]-3 Fatty Acids [Fish Oil] 300 mg PO DAILY 11/23/16 clonazePAM [Klonopin -] 0.5 mg PO PRN PRN 11/23/16 Cholecalciferol (Vitamin D3) 2,000 unit PO DAILY 04/16/17 [Vitamin D3 -] Acetaminophen [Tylenol .Regular 650 mg PO Q4H PRN tablet 06/30/17 Strength -] Albuterol 0.083% Nebulizer [place] 1 amp NEB TIDR #30 amp 06/30/17 [Ventolin 0.083% Nebulizer Soln -] Albuterol Sulfate Inhaler - 2 puff IH Q4H PRN #1 inhaler 06/30/17 [Ventolin HFA Inhaler -] Diltiazem Cd [Cardizem Cd -] 180 mg PO DAILY cap.cd.24h 06/30/17 predniSONE [Deltasone -] 10 mg PO DAILY #30 tablet 06/30/17 Famotidine [Pepcid] 40 mg PO HS 10/17/17 Fluticasone/Vilanterol [Breo 1 each IH DAILY 10/17/17 Ellipta 200-25 Mcg INH] Pantoprazole Sodium [Protonix] 40 mg PO DAILY 10/17/17 Diltiazem Cd [Cardizem Cd -] 180 mg PO DAILY 10/18/17 Tiotropium [place] [Spiriva] 1 inh PO DAILY 10/18/17 Satellite Physical Exam - Physical Examination Vital Signs: Vital Signs Period Temp Pulse Resp BP Sys/[place] Pulse Ox Last 24 Hr 97.7 F 92 20 116/75 99-99 Extremities: Other (+ joint line tenderness) Satellite Impression/Plan - Impression/Plan Impression: internal derangement right knee Operative Procedure: arthroscopy right knee Date to be Performed: 10/18/17
--- NOTE | 2017-10-18 08:48 | OP ---
Operative Note - Note: Operative Date: 10/18/17 Pre-Operative Diagnosis: internal drangement right knee Operation: arthroscopy right knee with partial LM and chondroplasty tochlea Post-Operative Diagnosis: Same as Pre-op Surgeon: James St Anesthesia: General Operative Report Dictated: Yes
[2017-10-18 09:32] VITALS: TEMP 973.5
--- NOTE | 2017-10-18 10:05 | OP ---
DATE OF OPERATION: 10/18/2017 PREOPERATIVE DIAGNOSIS: Internal derangement, right knee. POSTOPERATIVE DIAGNOSIS: Internal derangement, right knee. PROCEDURE: Arthroscopy, right knee with partial lateral meniscectomy and chondroplasty of the trochlea. SURGICAL ATTENDING: James St MD ANESTHESIA: General with LMA. CLOSURE: 4-0 nylon. COMPLICATIONS: None. CONDITION: To recovery room in stable condition. DESCRIPTION OF OPERATIVE PROCEDURE: Patient taken to the operating room on October 18, 2017. General anesthesia with LMA was administered per the anesthesiologist. Right lower extremity was prepped and draped in the usual sterile fashion. Medial and lateral infrapatellar portal sites were infiltrated with 1% Xylocaine with epinephrine. The portals were then made over these sites using a 15 blade followed by a blunt trocar. The scope was placed up through the inferolateral port into the suprapatellar pouch. The knee was inflated with a cocktail of 10 mL of 1% Xylocaine and 10 mL of 0.50% Marcaine and 20 mL of arthroscopic saline through the trocar. After allowing the anesthetic to work in the knee, the procedure was commenced. The undersurface of the patella was found to be intact. The trochlea had some grade 3 changes, essentially mild. This was debrided back to stable articular cartilage using the shaver. With valgus stress on the knee, medial compartment was entered. Medial meniscus was visualized, probed, found to be intact. The medial femoral condyle was run and found to be intact as was the medial tibial plateau. At 90 degrees, the ACL was visualized and probed, found to be intact. In the figure-4 position, lateral compartment was entered. Lateral meniscus was found to have some radial tears. This was debrided back to stable meniscal tissues using meniscal biter and the arthroscopic shaver. Lateral femoral condyle was run and found to be intact as was the lateral tibial plateau. The medial and lateral gutters were visualized, noted to be free of any loose bodies. The knee was irrigated with copious amounts of irrigation. The fluid was drained. Then, the knee was inflated with a cocktail of 20 mL of Marcaine for postoperative analgesia. The trocars were removed. The portals were closed with 3-0 nylon. Sterile pressure dressing was applied. Patient was awakened from anesthesia and transferred to Recovery in stable condition. No complications. Estimated blood loss: Negligible. Jasson HUERTA/[id number]
[2017-10-18 13:20] VITALS: BP 124/79; PULSE 98
--- NOTE | 2017-10-19 12:02 | PATH ---
Surgical Pathology Report Patient Name: DICK AVILA [facility]. Rec. #: [id number] /Age/Gender: 1960 (Age: 57) / F Account: [id number] Location: [facility] SURGICAL Taken: 10/18/2017 Received: 10/18/2017 Reported: 10/19/2017 Physicians: James St M.D. Specimen(s) Received RIGHT KNEE SHAVINGS Clinical History Tear right knee Final Diagnosis KNEE, RIGHT, ARTHROSCOPIC SHAVING: FIBROCARTILAGE WITH MYXOID DEGENERATIVE CHANGES, ALONG WITH PORTIONS OF SYNOVIUM AND HYALINE CARTILAGE. Electronically Signed Kd Yanes M.D. Gross Description Received in formalin, labeled "right knee shavings," is a 3.5 x 2.4 x 0.3 cm. aggregate of harry-yellow soft tissue fragments. A product support representative portion is submitted in one cassette. /10/18/201710/18/2017
== END 2017-10-18 12:50 | disposition home or self-care (01) ==
LOC: JASU-SURG 05:11
PROVIDERS: ATTEND Orthopaedic Surgery
PROC: 0SBC4ZZ Excision of Right Knee Joint, Percutaneous Endoscopic Approach (ICD-10-PCS; 2017-10-18)
PROC: 0SBC4ZZ Excision of Right Knee Joint, Percutaneous Endoscopic Approach (ICD-10-PCS; principal; 2017-10-18 08:00)
DX: M23.91 Unspecified internal derangement of right knee (principal); M23.200 Derangement of unspecified lateral meniscus due to old tear or injury, right knee
CPT/HCPCS: 29881; G0289; 88304-TC; 94760

== ENCOUNTER 2017-11-21 18:23 | Emergency (ER) | payer OTHER, BC ==
[2017-11-21 18:41] VITALS: BP 112/81; PULSE 129; TEMP 98.4; BMI 31.2
--- NOTE | 2017-11-21 18:41 | PDOC ---
Rapid Medical Evaluation Time Seen by Provider: 11/21/17 18:36 Medical Evaluation: Allergies Allergy/AdvReac Type Severity Reaction Status Date / Time Penicillins Allergy Hives Verified 11/21/17 18:36 Sulfa (Sulfonamide Allergy Hives Verified 11/21/17 18:36 Antibiotics) [Sulfa(Sulfonamide Antibiotics)] 11/21/17 18:39 I have performed a brief in-person evaluation of this patient. The patient presents with a chief complaint of abdominal pain x 3 days States pain in epigastric areas radiating to right upper quadrant x 3 day. States with nausea and no bowel movement x 3 days Pertinent physical exam finding are NAD +expiratory wheezing abdomen tenderness in right mid, upper quadrant and mid epigastric area I have ordered the following: labs ordered, xray The patient will proceed to the ED for further evaluation. Discharge Disposition - Referrals Referrals: Cristal Ludwig MD [Primary Care Provider] - - Patient Instructions - Post Discharge Activity
--- NOTE | 2017-11-21 19:17 | PDOC ---
History of Present Illness - General History Source: Patient Exam Limitations: No Limitations - History of Present Illness Initial Comments: 11/21/17 19:16 57 year old female with pmh of copd, HTN, HLD, prediabetic, depression , anxiety who presented to the ED today with 3 days history of mid epigastric abdominal pain, 7/10 , radiated to her back. constant pain, not improved with anti acides and pain meds. Sge denies any fever, chills, reports some nasuea but no vomiting , denies diarrhea or constipation, deneis any recent travel or sick contact. denies nay headache, blurry vision, chest pain , sob, cough, denies nay urinary symptoms. PMHx: COPD< HLD< HTN PSHX: R knee surgery Sep 2017, R foot surgery , BV/L cataract Allergies: Penicillin and sulfa she develops Hives Social: previous smoker quit 6 years ago, smoked 1ppd for 30 years , drink socially, denies nay recreational drugs abuse FHX:Father with lung cancer , Mother with asthma HTN. Physical: Vital Signs Period Temp Pulse Resp BP Sys/Jordan Pulse Ox Last 24 Hr 98.4 F 129 20 112/81 97 General: well nourished in NAD Head: NC/AT , Neck: supple ENT: MMM, GUILLERMO, EOMI Lungs: diffuse expiratory wheezing Heart: Tachy cardic, no MRG Abdomen: soft, mid epigastric tnederness to palpation. + BS Legs: No Edema, +2 DP Neuro: no focal defict, normal speech, normal gait Skin: warm dry Psych: appropriate mood and effect. DD: Gastritis Gastroenteritis PUD Duodenal US Colitis Partial SBO Work UP: CBC, CMP IV fluids US abdomen Pain meds 11/21/17 20:24 <Chevy Rapp - Last Filed: 11/21/17 23:54> <Isaac Ybarra - Last Filed: 11/21/17 23:58> - General Chief Complaint: Pain, Acute Stated Complaint: ABD PAIN Time Seen by Provider: 11/21/17 18:36 Past History - Past Medical History Anemia: No Asthma: Yes Cancer: No Cardiac Disorders: Yes (TACHY) CVA: No COPD: Yes CHF: No Dementia: No Diabetes: Yes (BORDERLINE) GI Disorders: Yes (GERD) Disorders: No HTN: Yes Hypercholesterolemia: Yes Liver Disease: No Seizures: No Thyroid Disease: Yes (NODULES) - Surgical History Abdominal Surgery: Yes (POLYP REMOVED FROM UTERUS 09/06/13) Appendectomy: No Cardiac Surgery: No Cholecystectomy: No GI Surgery: Yes (umbilical hernia/wound vac) Lung Surgery: No Neurologic Surgery: No Orthopedic Surgery: Yes (BUNION REMOVAL RT FOOT 2014) - Immunization History Immunization Up to Date: Yes - Suicide/Smoking/Psychosocial Hx Smoking Status: Yes Smoking History: Former smoker Have you smoked in the past 12 months: No Number of Cigarettes Smoked Daily: 0 If you are a former smoker, when did you quit?: 6 YRS Information on smoking cessation initiated: No 'Breaking Loose' booklet given: 10/28/13 Hx Alcohol Use: No Drug/Substance Use Hx: No Substance Use Type: None Hx Substance Use Treatment: No <Chevy Rapp - Last Filed: 11/21/17 23:54> <Isaac Ybarra - Last Filed: 11/21/17 23:58> - Past Medical History Allergies/Adverse Reactions: Allergies Allergy/AdvReac Type Severity Reaction Status Date / Time Penicillins Allergy Hives Verified 11/21/17 18:36 Sulfa (Sulfonamide Allergy Hives Verified 11/21/17 18:36 Antibiotics) [Sulfa(Sulfonamide Antibiotics)] Home Medications: Ambulatory Orders Atorvastatin Ca [Lipitor] 10 mg PO HS 06/24/15 Roflumilast [Daliresp] 500 mcg PO DAILY 06/24/15 Tiotropium [place] [Spiriva] 1 inh PO DAILY 06/24/15 Aspirin [ASA -] 81 mg PO DAILY 03/21/16 Cyanocobalamin [Vitamin B12 -] 1,000 mcg PO DAILY tablet 03/28/16 Amitriptyline HCl [Elavil -] 25 mg PO HS 09/23/16 [place]-3 Fatty Acids [Fish Oil] 300 mg PO DAILY 11/23/16 clonazePAM [Klonopin -] 0.5 mg PO PRN PRN 11/23/16 Cholecalciferol (Vitamin D3) [Vitamin D3 -] 2,000 unit PO DAILY 04/16/17 Acetaminophen [Tylenol .Regular Strength -] 650 mg PO Q4H PRN tablet 06/30/17 Albuterol 0.083% Nebulizer Grace [Ventolin 0.083% Nebulizer Soln -] 1 amp NEB TIDR #30 amp 06/30/17 Albuterol Sulfate Inhaler - [Ventolin HFA Inhaler -] 2 puff IH Q4H PRN #1 inhaler 06/30/17 Diltiazem Cd [Cardizem Cd -] 180 mg PO DAILY cap.cd.24h 06/30/17 predniSONE [Deltasone -] 10 mg PO DAILY #30 tablet 06/30/17 Famotidine [Pepcid] 40 mg PO HS 10/17/17 Fluticasone/Vilanterol [Breo Ellipta 200-25 Mcg INH] 1 each IH DAILY 10/17/17 Pantoprazole Sodium [Protonix] 40 mg PO DAILY 10/17/17 Diltiazem Cd [Cardizem Cd -] 180 mg PO DAILY 10/18/17 Oxycodone HCl/Acetaminophen [Percocet 5-325 mg Tablet -] 1 - 2 tab PO Q6H #60 tab MDD 6 10/18/17 Tiotropium [place] [Spiriva] 1 inh PO DAILY 10/18/17 Oxycodone HCl/Acetaminophen [Percocet 5-325 mg Tablet] 1 tab PO Q4H #4 tablet MDD 4 11/21/17 *Physical Exam - Vital Signs Last Vital Signs Temp Pulse Resp BP Pulse Ox 98.4 F 129 H 20 112/81 97 11/21/17 18:37 11/21/17 18:37 11/21/17 18:37 11/21/17 18:37 11/21/17 18:37 <Chevy Rapp - Last Filed: 11/21/17 23:54> - Vital Signs Last Vital Signs Temp Pulse Resp BP Pulse Ox 98.4 F 129 H 20 112/81 97 11/21/17 18:37 11/21/17 18:37 11/21/17 18:37 11/21/17 18:37 11/21/17 18:37 <Isaac Ybarra - Last Filed: 11/21/17 23:58> ED Treatment Course - LABORATORY CBC & Chemistry Diagram: 11/21/17 19:24 11/21/17 19:24 <Chevy Rapp - Last Filed: 11/21/17 23:54> - LABORATORY CBC & Chemistry Diagram: 11/21/17 19:24 11/21/17 19:24 - ADDITIONAL ORDERS Additional order review: Laboratory Results 11/21/17 11/21/17 11/21/17 21:05 21:05 19:24 Sodium 139 Potassium 3.7 Chloride 105 Carbon Dioxide 25 Anion Gap 9 BUN 11 Creatinine 1.0 Creat Clearance w eGFR 57.15 Random Glucose 135 H Calcium 8.7 Total Bilirubin 0.5 D AST 12 L ALT 18 Alkaline Phosphatase 132 H Creatine Kinase Cancelled 65 Troponin I Cancelled < 0.02 B-Natriuretic Peptide Cancelled 12.56 Total Protein 6.8 Albumin 3.6 Lipase 96 11/21/17 19:24 RBC 4.51 MCV 89.1 MCHC 34.1 RDW 14.6 MPV 7.8 Neutrophils % 77.3 D Lymphocytes % 14.0 D Monocytes % 7.2 Eosinophils % 1.4 Basophils % 0.1 - RADIOLOGY Radiograph Interpretation: 11/21/17 23:56 CT abdomen and pelvis with contrast Reviewed by: Dr. Yehuda Galicia Impression: No evidence of bowel obstruction, diverticulitis or colitis. Normal appearing appendix. Right Parasagittal ventral abdominal wall hernia containing fat and nondilated small bowel. - Medications Given in the ED: ED Medications Discontinued Medications Generic Name Dose Route Start Last Admin Trade Name Freq PRN Reason Stop Dose Admin Sodium Chloride 500 mls @ 500 mls/hr 11/21/17 21:00 11/21/17 22:11 Normal Saline - IV 11/21/17 21:59 500 mls/hr ASDIR STA Administration Morphine Sulfate 2 mg 11/21/17 21:02 11/21/17 22:11 Morphine Injection - IVPUSH 11/21/17 21:03 2 mg ONCE ONE Administration Ondansetron HCl 4 mg 11/21/17 19:18 11/21/17 22:11 Zofran Injection IVPUSH 11/21/17 19:19 4 mg ONCE ONE Administration <Isaac Ybarra - Last Filed: 11/21/17 23:58> *DC/Admit/Observation/Transfer - Discharge Dispostion Admit: No <Chevy Rapp - Last Filed: 11/21/17 23:54> <Isaac Ybarra - Last Filed: 11/21/17 23:58> Diagnosis at time of Disposition: Abdominal pain - Discharge Dispostion Disposition: HOME - Prescriptions Prescriptions: Oxycodone HCl/Acetaminophen [Percocet 5-325 mg Tablet] 1 tab PO Q4H #4 tablet MDD 4 - Referrals Referrals: Cristal Ludwig MD [Primary Care Provider] - 3 days - Patient Instructions Additional Instructions: You were presented to the hospital due to abdominal pain , the work up came back negative You will be discharge home Please take Tylenol as needed for pain Please follow up with your primary care physician within one week If you develop fever, chills or your symptoms worsen please call 911 or return to emergency room as soon as possible. - Post Discharge Activity
[2017-11-21] MEDS ORDERED: ONDANSETRON 4 MG/2 ML VIAL IVPUSH ONE (19:18)
[2017-11-21] MEDS ORDERED: LACTATED RINGERS SOLUTION 1,000 ML IV SCH (19:30)
[2017-11-21 20:09] LABS: BASO % 0.1 % (0-2.0); EOS % 1.4 % (0-4.5); HEMATOCRIT 40.1 % (32.4-45.2); HEMOGLOBIN 13.7 GM/dL (10.7-15.3); MCH 30.3 pg (25.7-33.7); MCHC 34.1 g/dl (32.0-36.0); MEAN CELL VOLUME 89.1 fl (80-96); MEAN PLT VOLUME 7.8 fl (7.5-11.1); MONO % 7.2 % (3.8-10.2); NEUT % 77.3 % (42.8-82.8); PLATELET COUNT 302 K/MM3 (134-434); RBC 4.51 M/mm3 (3.60-5.2); RDW 14.6 % (11.6-15.6); WHITE BLOOD COUNT 7.9 K/mm3 (4.0-10.0)
[2017-11-21 20:25] LABS: ALBUMIN 3.6 g/dl (3.4-5.0); ANION GAP 9 (8-16); BILIRUBIN,TOTAL 0.5 mg/dL (0.2-1.0); BLOOD UREA NITROGEN 11 mg/dL (7-18); CALCIUM 8.7 mg/dL (8.5-10.1); CHLORIDE 105 mmol/L (98-107); CO2 25 mmol/L (21-32); GLUCOSE,RANDOM 135 mg/dL (74-106); LIPASE 96 U/L (73-393); POTASSIUM 3.7 mmol/L (3.5-5.1); SGOT/AST 12 U/L (15-37); SGPT/ALT 18 U/L (12-78); SODIUM 139 mmol/L (136-145); TOT PROT 6.8 g/dl (6.4-8.2)
[2017-11-21 20:26] LABS: ALK PHOS 132 U/L (45-117)
[2017-11-21] MEDS ORDERED: SODIUM CHLORIDE 500 ML IV STA (21:00)
[2017-11-21] MEDS ORDERED: morphine CARPU-JECT 2 MG/1 ML DISP.SYRIN IVPUSH ONE (21:02)
[2017-11-21] MEDS ORDERED: MORPHINE SULFATE 10 MG/1 ML *VIAL ONE (21:11)
[2017-11-21] MEDS ORDERED: ONDANSETRON 4 MG/2 ML VIAL ONE (21:11)
[2017-11-21 21:31] LABS: N-TERMINAL BNP 12.56 pg/ml (5-125)
--- NOTE | 2017-11-23 00:17 | EKG ---
Test Reason : Blood Pressure : / mmHG Vent. Rate : 105 BPM Atrial Rate : 105 BPM P-R Int : 138 ms QRS Dur : 082 ms QT Int : 324 ms P-R-T Axes : 062 028 044 degrees QTc Int : 428 ms SINUS TACHYCARDIA POSSIBLE LEFT ATRIAL ENLARGEMENT BORDERLINE ECG WHEN COMPARED WITH ECG OF 25-JUN-2017 19:01, NO SIGNIFICANT CHANGE WAS FOUND Confirmed by NISHA FERNANDEZ MD ([id number]) on 11/23/2017 12:17:13 AM Referred By: Confirmed By:NISHA FERNANDEZ MD
== END 2017-11-22 01:28 | disposition home or self-care (01) ==
LOC: JER 18:23
PROC: 3E033GC Introduction of Other Therapeutic Substance into Peripheral Vein, Percutaneous Approach (ICD-10-PCS; principal; 2017-11-21)
PROC: 3E033NZ Introduction of Analgesics, Hypnotics, Sedatives into Peripheral Vein, Percutaneous Approach (ICD-10-PCS; 2017-11-21)
DX: I10 Essential (primary) hypertension (principal); E11.9 Type 2 diabetes mellitus without complications; E78.00 Pure hypercholesterolemia, unspecified; K21.9 Gastro-esophageal reflux disease without esophagitis; J44.9 Chronic obstructive pulmonary disease, unspecified; F32.9 Major depressive disorder, single episode, unspecified
CPT/HCPCS: 36415; 74177-TC; 76705-TC; 80053; 82550; 83690; 83880; 84484; 85025; 93005; 93010; 96374; 96375; 99283-25

== ENCOUNTER 2017-11-29 22:46 | Inpatient (IN) | payer OTHER, BC ==
[2017-11-29 23:00] VITALS: BMI 30.2
[2017-12-03 08:00] VITALS: BP 138/74; PULSE 77; TEMP 98.4
== END 2017-12-03 15:10 | disposition home or self-care (01) | DRG 192 ==
LOC: JER 22:46 → JERBED 11-30 02:21 → J8W 11-30 21:51
PROVIDERS: ADMIT Internal Medicine; ATTEND Internal Medicine
DX: J44.1 Chronic obstructive pulmonary disease with (acute) exacerbation (principal); R73.03 Prediabetes; E78.5 Hyperlipidemia, unspecified; I10 Essential (primary) hypertension; K21.9 Gastro-esophageal reflux disease without esophagitis; F32.9 Major depressive disorder, single episode, unspecified; E04.1 Nontoxic single thyroid nodule; F41.9 Anxiety disorder, unspecified; Z88.0 Allergy status to penicillin; Z87.891 Personal history of nicotine dependence; K27.9 Peptic ulcer, site unspecified, unspecified as acute or chronic, without hemorrhage or perforation
CPT/HCPCS: 36415; 71045-TC-FY; 80048; 80053; 82550; 82728; 83540; 83550; 83735; 83880; 84100; 84484; 85025; 85610; 87081; 87804; 93005; 93010; 94640; 99284-25; J7030; J7620

== ENCOUNTER 2017-12-11 16:27 | Emergency (ER) | payer OTHER, BC ==
--- NOTE | 2017-12-11 16:31 | PDOC ---
Rapid Medical Evaluation Time Seen by Provider: 12/11/17 16:28 Medical Evaluation: Allergies Allergy/AdvReac Type Severity Reaction Status Date / Time Penicillins Allergy Hives Verified 11/29/17 22:59 Sulfa (Sulfonamide Allergy Hives Verified 11/29/17 22:59 Antibiotics) [Sulfa(Sulfonamide Antibiotics)] 12/11/17 16:28 I have performed a brief in-person evaluation of this patient. The patient presents with a chief complaint of: abscess to L buttock hx of requiring IV abx, recently d/c from hospital for COPD, denies f/v/d Pertinent physical exam findings: cough, HR 126 I have ordered the following: labs The patient will proceed to the ED for further evaluation. Discharge Disposition - Diagnosis Abscess - Referrals Referrals: Cristal Ludwig MD [Primary Care Provider] - - Patient Instructions - Post Discharge Activity
[2017-12-11 16:34] VITALS: BP 132/73; PULSE 126; TEMP 97.6; BMI 30.2
[2017-12-11 17:57] LABS: BASO % 0.5 % (0-2.0); EOS % 0.5 % (0-4.5); HEMATOCRIT 38.1 % (32.4-45.2); HEMOGLOBIN 12.6 GM/dL (10.7-15.3); MCH 30.3 pg (25.7-33.7); MCHC 33.1 g/dl (32.0-36.0); MEAN CELL VOLUME 91.5 fl (80-96); MEAN PLT VOLUME 6.9 fl (7.5-11.1); MONO % 5.5 % (3.8-10.2); NEUT % 65.5 % (42.8-82.8); PLATELET COUNT 373 K/MM3 (134-434); RBC 4.17 M/mm3 (3.60-5.2); RDW 14.8 % (11.6-15.6); WHITE BLOOD COUNT 16.8 K/mm3 (4.0-10.0)
[2017-12-11 18:10] LABS: INR 0.97 (0.82-1.09)
[2017-12-11] MEDS ORDERED: CLINDAMYCIN HCL 300 MG CAPSULE PO STA (18:17)
[2017-12-11] MEDS ORDERED: CLINDAMYCIN HCL 150 MG CAPSULE (FP) ONE (18:44)
[2017-12-11] MEDS ORDERED: VANCOMYCIN 1,000 MG in DEXTROSE 5%-WATER - 250 ML IVPB ONE (18:49)
--- NOTE | 2017-12-11 18:53 | PDOC ---
History of Present Illness - General History Source: Patient Exam Limitations: No Limitations - History of Present Illness Initial Comments: 12/11/17 19:27 The patient is a 57 year old female with a significant PMH of MRSA colonization , COPD, HTN, borderline diabetes, hyperlipidemia, GERD, thyroid nodule, depression, and anxiety who presents to the emergency department with a painful abscess to the middle of her left buttock. The patient is allergic to sulfa and penicillins. The patient has been admitted in the past for abscesses and follows with Dr. Sal (General surgery). Patient denies fever or chills. Abscess appears to have no cellulitis with minimal induration and no drainage but is starting to come to a head. The patient denies fever, chills, headache and dizziness. Denies nausea, vomit, diarrhea and constipation. Denies dysuria, frequency, urgency and hematuria. Allergies: Penicillins, Sulfonamide antibiotics. Past surgical history: Umbilical hernia repair. Abdominal wound vac. RLE bunion removal. Uterine polyp removal. Social history: Former smoker. No reported alcohol or drug use. PCP: Dr. Cristal Ludwig Social Insurance Adviser: Dr. Flores <Maira Chaudhari - Last Filed: 12/11/17 19:29> <Gabriella Nicholson - Last Filed: 12/12/17 01:29> - General Chief Complaint: Abscess Boil Stated Complaint: LEFT SIDE PAIN Time Seen by Provider: 12/11/17 16:28 Past History <Maira Chaudhari - Last Filed: 12/11/17 19:29> - Past Medical History Anemia: No Asthma: Yes Cancer: No Cardiac Disorders: Yes (TACHY) CVA: No COPD: Yes CHF: No DVT: No Dementia: No Diabetes: Yes (BORDERLINE) GI Disorders: Yes (GERD) Disorders: No HTN: Yes Hypercholesterolemia: Yes Liver Disease: No Seizures: No Thyroid Disease: Yes (NODULES) - Surgical History Abdominal Surgery: Yes (POLYP REMOVED FROM UTERUS 09/06/13) Appendectomy: No Cardiac Surgery: No Cholecystectomy: No GI Surgery: Yes (umbilical hernia/wound vac) Lung Surgery: No Neurologic Surgery: No Orthopedic Surgery: Yes (BUNION REMOVAL RT FOOT 2013) - Immunization History Immunization Up to Date: Yes - Suicide/Smoking/Psychosocial Hx Smoking Status: Yes Smoking History: Former smoker Have you smoked in the past 12 months: No Number of Cigarettes Smoked Daily: 0 If you are a former smoker, when did you quit?: 6 YRS Information on smoking cessation initiated: No 'Breaking Loose' booklet given: 10/28/13 Hx Alcohol Use: No Drug/Substance Use Hx: No Substance Use Type: None Hx Substance Use Treatment: No <Gabriella Nicholson - Last Filed: 12/12/17 01:29> - Past Medical History Allergies/Adverse Reactions: Allergies Allergy/AdvReac Type Severity Reaction Status Date / Time Penicillins Allergy Hives Verified 12/11/17 16:29 Sulfa (Sulfonamide Allergy Hives Verified 12/11/17 16:29 Antibiotics) [Sulfa(Sulfonamide Antibiotics)] Home Medications: Ambulatory Orders Atorvastatin Ca [Lipitor] 10 mg PO HS 06/24/15 Roflumilast [Daliresp] 500 mcg PO DAILY 06/24/15 Cyanocobalamin [Vitamin B12 -] 1,000 mcg PO DAILY tablet 03/28/16 Amitriptyline HCl [Elavil -] 25 mg PO HS 09/23/16 [place]-3 Fatty Acids [Fish Oil] 300 mg PO DAILY 11/23/16 clonazePAM [Klonopin -] 0.5 mg PO PRN PRN 11/23/16 Cholecalciferol (Vitamin D3) [Vitamin D3 -] 2,000 unit PO DAILY 04/16/17 Acetaminophen [Tylenol .Regular Strength -] 650 mg PO Q4H PRN tablet 06/30/17 Albuterol 0.083% Nebulizer Grace [Ventolin 0.083% Nebulizer Soln -] 1 amp NEB TIDR #30 amp 06/30/17 Albuterol Sulfate Inhaler - [Ventolin HFA Inhaler -] 2 puff IH Q4H PRN #1 inhaler 06/30/17 Fluticasone/Vilanterol [Breo Ellipta 200-25 Mcg INH] 1 each IH DAILY 10/17/17 Pantoprazole Sodium [Protonix] 40 mg PO BID 10/17/17 Diltiazem Cd [Cardizem Cd -] 180 mg PO DAILY 10/18/17 Tiotropium [place] [Spiriva] 1 inh PO DAILY 10/18/17 Prednisone 10 mg PO DAILY #30 tablet 12/03/17 Sucralfate [Carafate -] 1 gm PO QID #120 tablet 12/03/17 Clindamycin [Cleocin -] 300 mg PO Q6H #28 capsule 12/11/17 Oxycodone HCl/Acetaminophen [Percocet 5-325 mg Tablet] 1 tab PO Q6H #8 tablet MDD 4 12/11/17 Review of Systems - Review of Systems Able to Perform ROS?: Yes Comments:: 12/11/17 19:28 A complete review of 10 out of 10 review of systems is taken and is negative apart from what is previously mentioned below and in the HPI. <Maira Chaudhari - Last Filed: 12/11/17 19:29> *Physical Exam - Vital Signs Last Vital Signs Temp Pulse Resp BP Pulse Ox 97.6 F 126 H 18 132/73 98 12/11/17 16:29 12/11/17 16:29 12/11/17 16:29 12/11/17 16:29 12/11/17 16:29 - Physical Exam Comments: 12/11/17 19:27 General Appearance: No acute distress, well nourished, well developed Head: Atraumatic Eyes: Pupils equal reactive round, extraocular movement intact Cardiac: Regular rate and rhythm, no murmurs, no rubs, no gallops Lungs: Clear to auscultation bilateral, good air movement bilaterally Abdomen: Soft, nondistended, normal bowel sounds, nontender to palpation Extremities: Full range of motion to all extremities, no cyanosis, clubbing, or edema Skin: (+) 2.5 cm area of induration surrounding a small pustule on the middle of her left buttock. Warm and dry, no rashes, no petechiae Neuro: AOX3; Cranial Nerves 2-12 grossly intact. Psych: Normal mood, normal affect <Maira Chaudhari - Last Filed: 12/11/17 19:29> - Vital Signs Last Vital Signs Temp Pulse Resp BP Pulse Ox 97.6 F 126 H 18 132/73 98 12/11/17 16:29 12/11/17 16:29 12/11/17 16:29 12/11/17 16:29 12/11/17 16:29 <Gabriella Nicholson - Last Filed: 12/12/17 01:29> ED Treatment Course - LABORATORY CBC & Chemistry Diagram: 12/11/17 17:46 12/11/17 17:46 - ADDITIONAL ORDERS Additional order review: Laboratory Results 12/11/17 12/11/17 17:46 17:37 PT with INR 11.00 INR 0.97 Sodium Cancelled Potassium Cancelled Chloride Cancelled Carbon Dioxide Cancelled Anion Gap Cancelled BUN Cancelled Creatinine Cancelled Creat Clearance w eGFR Cancelled Random Glucose Cancelled Calcium Cancelled Total Bilirubin Cancelled AST Cancelled ALT Cancelled Alkaline Phosphatase Cancelled Total Protein Cancelled Albumin Cancelled 12/11/17 17:46 RBC 4.17 MCV 91.5 MCHC 33.1 RDW 14.8 MPV 6.9 L D Neutrophils % 65.5 D Lymphocytes % 28.0 D Monocytes % 5.5 D Eosinophils % 0.5 D Basophils % 0.5 - Medications Given in the ED: ED Medications Discontinued Medications Generic Name Dose Route Start Last Admin Trade Name Freq PRN Reason Stop Dose Admin Clindamycin HCl 600 mg 12/11/17 18:17 12/11/17 18:46 Cleocin - PO 12/11/17 18:18 Not Given ONCE STA Oxycodone/Acetaminophen 1 combo 12/11/17 17:54 12/11/17 18:05 Percocet 5/325 - PO 12/11/17 17:55 1 combo ONCE ONE Administration <Maira Chaudhari - Last Filed: 12/11/17 19:29> - LABORATORY CBC & Chemistry Diagram: 12/11/17 17:46 12/11/17 17:46 - ADDITIONAL ORDERS Additional order review: Laboratory Results 12/11/17 12/11/17 17:46 17:37 PT with INR 11.00 INR 0.97 Sodium Cancelled Potassium Cancelled Chloride Cancelled Carbon Dioxide Cancelled Anion Gap Cancelled BUN Cancelled Creatinine Cancelled Creat Clearance w eGFR Cancelled Random Glucose Cancelled Calcium Cancelled Total Bilirubin Cancelled AST Cancelled ALT Cancelled Alkaline Phosphatase Cancelled Total Protein Cancelled Albumin Cancelled 12/11/17 17:46 RBC 4.17 MCV 91.5 MCHC 33.1 RDW 14.8 MPV 6.9 L D Neutrophils % 65.5 D Lymphocytes % 28.0 D Monocytes % 5.5 D Eosinophils % 0.5 D Basophils % 0.5 - Medications Given in the ED: ED Medications Discontinued Medications Generic Name Dose Route Start Last Admin Trade Name Freq PRN Reason Stop Dose Admin Clindamycin HCl 600 mg 12/11/17 18:17 12/11/17 18:46 Cleocin - PO 12/11/17 18:18 Not Given ONCE STA Oxycodone/Acetaminophen 1 combo 12/11/17 17:54 12/11/17 18:05 Percocet 5/325 - PO 12/11/17 17:55 1 combo ONCE ONE Administration <Gabriella Nicholson - Last Filed: 12/12/17 01:29> Medical Decision Making - Medical Decision Making 12/11/17 18:45 Patient states she does not want to be admitted for observation due to insurance problems. The patient is requesting to be admitted for regular med- surg. Patient requesting vanco and wants to see a surgeon. 12/11/17 19:[address] Sal (General Surgery) 12/11/17 19:[address] Sal a second time. <Maira Chaudhari - Last Filed: 12/11/17 19:29> - Medical Decision Making 12/12/17 01:27 Dr Sal examined this pt and determined no I and D required, the pt should use warm compresses,take antibiotics and follow up with him in the office <Gabriella Nicholson - Last Filed: 12/12/17 01:29> *DC/Admit/Observation/Transfer - Attestations Scribe Attestion: 12/11/17 19:27 Documentation prepared by Maira Chaudhari, acting as medical imaging technologist for Gabriella Nicholson MD. <Maira Chaudhari - Last Filed: 12/11/17 19:29> <Gabriella Nicholson - Last Filed: 12/12/17 01:29> Diagnosis at time of Disposition: Abscess - Discharge Dispostion Disposition: HOME Condition at time of disposition: Stable - Prescriptions Prescriptions: Clindamycin [Cleocin -] 300 mg PO Q6H #28 capsule Oxycodone HCl/Acetaminophen [Percocet 5-325 mg Tablet] 1 tab PO Q6H #8 tablet MDD 4 - Referrals Referrals: Cristal Ludwig MD [Primary Care Provider] - Micaela Sal MD [Staff Physician] - - Patient Instructions Additional Instructions: please pickle maker your antibiotics and pain meds at your pharmacy followup with Dr Sal if your symptoms worsen Apply warm compresses to the area and sit in the bath to help drainage - Post Discharge Activity
[2017-12-11] MEDS ORDERED: VANCOMYCIN 1 GRAM (PRE-DOCKED) 1,000 MG/250 ML BAG IVPB ONE (19:20)
--- NOTE | 2017-12-11 20:12 | CONSULT ---
Consult Consult Specialty:: Surgery Reason for Consultation:: Bharat Quiroz - History of Present Illness Chief Complaint: The patient is a 57 year old female with a significant PMH of MRSA colonization, COPD, HTN, borderline diabetes, hyperlipidemia, GERD, thyroid nodule, depression, and anxiety who presents to the emergency department with a painful abscess to the middle of her left buttock.T History of Present Illness: C/O Pain in left buttock for 1 day. - History Source History Provided By: Patient - Past Medical History Cardio/Vascular: Yes: HTN Pulmonary: Yes: COPD Gastrointestinal: Yes: Other (HERNIA REPAIR WITH COMPLICATIONS AND POST OP SBO) ...LMP: 08/04/13 Psych: Yes: Anxiety Musculoskeletal: Yes: Osteoarthritis, Other (KNEE SURGERY) Rheumatology: Yes: Other (OSTEOARTHRITIS) - Past Surgical History Past Surgical History: Yes: Hernia Repair - Alcohol/Substance Use Hx Alcohol Use: No History of Substance Use: reports: None - Smoking History Smoking history: Former smoker Have you smoked in the past 12 months: No Aproximately how many cigarettes per day: 0 If you are a former smoker, when did you quit?: 6 YRS - Social History History of Recent Travel: No Home Medications - Allergies Allergies/Adverse Reactions: Allergies Allergy/AdvReac Type Severity Reaction Status Date / Time Penicillins Allergy Hives Verified 12/11/17 16:29 Sulfa (Sulfonamide Allergy Hives Verified 12/11/17 16:29 Antibiotics) [Sulfa(Sulfonamide Antibiotics)] - Home Medications Home Medications: Ambulatory Orders Atorvastatin Ca [Lipitor] 10 mg PO HS 06/24/15 Roflumilast [Daliresp] 500 mcg PO DAILY 06/24/15 Cyanocobalamin [Vitamin B12 -] 1,000 mcg PO DAILY tablet 03/28/16 Amitriptyline HCl [Elavil -] 25 mg PO HS 09/23/16 [place]-3 Fatty Acids [Fish Oil] 300 mg PO DAILY 11/23/16 clonazePAM [Klonopin -] 0.5 mg PO PRN PRN 11/23/16 Cholecalciferol (Vitamin D3) [Vitamin D3 -] 2,000 unit PO DAILY 04/16/17 Acetaminophen [Tylenol .Regular Strength -] 650 mg PO Q4H PRN tablet 06/30/17 Albuterol 0.083% Nebulizer Grace [Ventolin 0.083% Nebulizer Soln -] 1 amp NEB TIDR #30 amp 06/30/17 Albuterol Sulfate Inhaler - [Ventolin HFA Inhaler -] 2 puff IH Q4H PRN #1 inhaler 06/30/17 Fluticasone/Vilanterol [Breo Ellipta 200-25 Mcg INH] 1 each IH DAILY 10/17/17 Pantoprazole Sodium [Protonix] 40 mg PO BID 10/17/17 Diltiazem Cd [Cardizem Cd -] 180 mg PO DAILY 10/18/17 Tiotropium [place] [Spiriva] 1 inh PO DAILY 10/18/17 Prednisone 10 mg PO DAILY #30 tablet 12/03/17 Sucralfate [Carafate -] 1 gm PO QID #120 tablet 12/03/17 Clindamycin [Cleocin -] 300 mg PO Q6H #28 capsule 12/11/17 Oxycodone HCl/Acetaminophen [Percocet 5-325 mg Tablet] 1 tab PO Q6H #8 tablet MDD 4 12/11/17 Family Disease History - Family Disease History Family Disease History: CA: Father (Lung CA), Other: Mother (HTN) Physical Exam Vital Signs: Vital Signs Temperature 97.6 F 12/11/17 16:29 Pulse Rate 126 H 12/11/17 16:29 Respiratory Rate 18 12/11/17 16:29 Blood Pressure 132/73 12/11/17 16:29 O2 Sat by Pulse Oximetry (%) 98 12/11/17 16:29 Extremities: Yes: Other (In her left buttock there vis an area of swelling for 2-3 cm, it is not red, not indurated , no drainage.) Labs: CBC, BMP 12/11/17 17:46 12/11/17 17:46 Problem List - Problems (1) Cellulitis of left buttock Code(s): L03.317 - CELLULITIS OF BUTTOCK (2) COPD (chronic obstructive pulmonary disease) Code(s): J44.9 - CHRONIC OBSTRUCTIVE PULMONARY DISEASE, UNSPECIFIED (3) MRSA (methicillin resistant Staphylococcus aureus) infection Code(s): A49.02 - METHICILLIN RESIS STAPH INFECTION, UNSP SITE (4) HTN (hypertension), benign Code(s): I10 - ESSENTIAL (PRIMARY) HYPERTENSION Assessment/Plan MRSA infection left buttock. Advised antibiotics, for MRSA, warm packs, Pain medication. Return to ER if does not improve, or worsen.
== END 2017-12-11 21:25 | disposition home or self-care (01) ==
LOC: JER 16:27
DX: L02.31 Cutaneous abscess of buttock (principal); A49.02 Methicillin resistant Staphylococcus aureus infection, unspecified site; Z22.322 Carrier or suspected carrier of Methicillin resistant Staphylococcus aureus; I10 Essential (primary) hypertension; E78.5 Hyperlipidemia, unspecified; J44.9 Chronic obstructive pulmonary disease, unspecified; K21.9 Gastro-esophageal reflux disease without esophagitis; F32.9 Major depressive disorder, single episode, unspecified; F41.9 Anxiety disorder, unspecified; E04.1 Nontoxic single thyroid nodule; Z88.1 Allergy status to other antibiotic agents; Z87.891 Personal history of nicotine dependence
CPT/HCPCS: 36415; 85025; 85610; 96365; 99282-25

== ENCOUNTER 2017-12-14 11:10 | Inpatient (IN) | payer OTHER, BC ==
--- NOTE | 2017-12-14 12:15 | PDOC ---
Attending Attestation - Resident Resident Name: Jeff Hernandez - ED Attending Attestation I have performed the following: I have examined & evaluated the patient, The case was reviewed & discussed with the resident, I agree w/resident's findings & plan, Exceptions are as noted - HPI HPI: 12/14/17 12:14 57y hx of dm, copd, presents with abcess, was originally seen previously in our ED, was evaluated by dr. Sal who felt an ID is not necessary, was started on clinda, presents today as she felt the abscess is worse and there is more pain. Patient denies any fevers, recent instrumentations or injuries. Patient does know she has history of frequent abscesses in the past but none recently. no fluid collection on bedside US On exam the patient has a large indurated mass that is painful to the touch on the left buttock, there is a is a break in the skin in the middle that is oozing serosanguineous fluid. There is no purulent discharge. The patient's vitals at triage was noted for tachycardia to 123 however isn't repeated and was 104 Suspect cellulitis possible MRSA Patient has been on clindamycin for approximately 2.5 days without significant improvement Patient had a leukocytosis of 16 3 days ago we'll repeat her blood work Will reassess consider possibly changing her medications for ouatpatement PO management versus admission for IV antibiotics for treatment failure Will discuss with PMD - Physicial Exam PE: 12/23/17 07:56 see above - Medical Decision Making case was d/w PMD requests admission for further management due to pain and persistence of symptoms
[2017-12-14 13:25] LABS: BASO % 0.2 % (0-2.0); EOS % 0.9 % (0-4.5); HEMATOCRIT 35.5 % (32.4-45.2); HEMOGLOBIN 11.8 GM/dL (10.7-15.3); LYMPH % 11.2 % (8-40); MCH 29.8 pg (25.7-33.7); MCHC 33.2 g/dl (32.0-36.0); MEAN CELL VOLUME 89.8 fl (80-96); MEAN PLT VOLUME 6.8 fl (7.5-11.1); MONO % 5.2 % (3.8-10.2); NEUT % 82.5 % (42.8-82.8); PLATELET COUNT 262 K/MM3 (134-434); RBC 3.95 M/mm3 (3.60-5.2); RDW 14.4 % (11.6-15.6); WHITE BLOOD COUNT 13.6 K/mm3 (4.0-10.0)
--- NOTE | 2017-12-14 13:51 | PDOC ---
History of Present Illness - General Chief Complaint: Wound Stated Complaint: REVISIT/ LT SIDE ABSCESS Time Seen by Provider: 12/14/17 11:38 - History of Present Illness Initial Comments: 12/14/17 14:07 57 year old female with a significant PMH of MRSA colonization, COPD, HTN, borderline diabetes, hyperlipidemia, GERD, thyroid nodule, depression, and anxiety who presents to the emergency department with a painful abscess to the middle of her left buttock for the past two days. Seen on Monday at this ER with a consuolt by Dr. Sal who deemed not neceray to do incision and drainage, ordered clindamycin with follow up. Patient back today complaining that symptoms didn't resolve and that area of cellulitis was bleeding this morning. Past History - Past Medical History Allergies/Adverse Reactions: Allergies Allergy/AdvReac Type Severity Reaction Status Date / Time Penicillins Allergy Hives Verified 12/14/17 11:18 Sulfa (Sulfonamide Allergy Hives Verified 12/14/17 11:18 Antibiotics) [Sulfa(Sulfonamide Antibiotics)] Home Medications: Ambulatory Orders Atorvastatin Ca [Lipitor] 10 mg PO HS 06/24/15 Roflumilast [Daliresp] 500 mcg PO DAILY 06/24/15 Cyanocobalamin [Vitamin B12 -] 1,000 mcg PO DAILY tablet 03/28/16 Amitriptyline HCl [Elavil -] 25 mg PO HS 09/23/16 [place]-3 Fatty Acids [Fish Oil] 300 mg PO DAILY 11/23/16 clonazePAM [Klonopin -] 0.5 mg PO PRN PRN 11/23/16 Cholecalciferol (Vitamin D3) [Vitamin D3 -] 2,000 unit PO DAILY 04/16/17 Acetaminophen [Tylenol .Regular Strength -] 650 mg PO Q4H PRN tablet 06/30/17 Albuterol 0.083% Nebulizer Grace [Ventolin 0.083% Nebulizer Soln -] 1 amp NEB TIDR #30 amp 06/30/17 Albuterol Sulfate Inhaler - [Ventolin HFA Inhaler -] 2 puff IH Q4H PRN #1 inhaler 06/30/17 Fluticasone/Vilanterol [Breo Ellipta 200-25 Mcg INH] 1 each IH DAILY 10/17/17 Pantoprazole Sodium [Protonix] 40 mg PO BID 10/17/17 Diltiazem Cd [Cardizem Cd -] 180 mg PO DAILY 10/18/17 Tiotropium [place] [Spiriva] 1 inh PO DAILY 10/18/17 Prednisone 10 mg PO DAILY #30 tablet 12/03/17 Sucralfate [Carafate -] 1 gm PO QID #120 tablet 12/03/17 Clindamycin [Cleocin -] 300 mg PO Q6H #28 capsule 12/11/17 Oxycodone HCl/Acetaminophen [Percocet 5-325 mg Tablet] 1 tab PO Q6H #8 tablet MDD 4 12/11/17 Anemia: No Asthma: Yes Cancer: No Cardiac Disorders: Yes (Tachycardia) CVA: No COPD: Yes CHF: No DVT: No Dementia: No Diabetes: Yes (BORDERLINE) GI Disorders: Yes (GERD) Disorders: No HTN: Yes Hypercholesterolemia: Yes Liver Disease: No Seizures: No Thyroid Disease: Yes (NODULES) - Surgical History Abdominal Surgery: Yes (POLYP REMOVED FROM UTERUS 09/06/13) Appendectomy: No Cardiac Surgery: No Cholecystectomy: No GI Surgery: Yes (umbilical hernia/wound vac) Lung Surgery: No Neurologic Surgery: No Orthopedic Surgery: Yes (BUNION REMOVAL RT FOOT 2013) - Immunization History Immunization Up to Date: Yes - Suicide/Smoking/Psychosocial Hx Smoking Status: Yes Smoking History: Former smoker Have you smoked in the past 12 months: No Number of Cigarettes Smoked Daily: 0 If you are a former smoker, when did you quit?: 2011 Information on smoking cessation initiated: No 'Breaking Loose' booklet given: 10/28/13 Hx Alcohol Use: No Drug/Substance Use Hx: No Substance Use Type: None Hx Substance Use Treatment: No Review of Systems - Review of Systems Able to Perform ROS?: Yes Is the patient limited Burkinan proficient: No Constitutional: No: Symptoms Reported HEENTM: No: Symptoms Reported Respiratory: No: Symptoms reported Cardiac (ROS): No: Symptoms Reported ABD/GI: No: Symptoms Reported : No: Symptoms Reported Musculoskeletal: No: Symptoms Reported Integumentary: Yes: See HPI Neurological: No: Symptoms reported All Other Systems: Reviewed and Negative *Physical Exam - Vital Signs Last Vital Signs Temp Pulse Resp BP Pulse Ox 98.4 F 104 H 16 104/72 98 12/14/17 12:06 12/14/17 12:06 12/14/17 12:06 12/14/17 12:06 12/14/17 12:06 - Physical Exam General Appearance: Yes: Nourished, Appropriately Dressed. No: Apparent Distress HEENT: positive: EOMI, EMMY, Normal ENT Inspection Respiratory/Chest: positive: Lungs Clear, Normal Breath Sounds. negative: Chest Tender, Respiratory Distress Cardiovascular: positive: Regular Rhythm, Regular Rate, S1, S2 Gastrointestinal/Abdominal: positive: Normal Bowel Sounds, Flat, Soft. negative : Tender Integumentary: positive: Other (5cm area of cellulitis over left buttock, with 2cm cicular area of induration with central opening draining some sanguinopurulent fluid. ) Procedures - Bedside Ultrasound Bedside Ultrasound: Skin Other: Remarks: 12/14/17 14:14 No area of fluid collection. ED Treatment Course - LABORATORY CBC & Chemistry Diagram: 12/14/17 13:08 12/14/17 13:08 - ADDITIONAL ORDERS Additional order review: 12/14/17 13:08 RBC 3.95 MCV 89.8 MCHC 33.2 RDW 14.4 MPV 6.8 L Neutrophils % 82.5 D Lymphocytes % 11.2 D Monocytes % 5.2 Eosinophils % 0.9 Basophils % 0.2 - Medications Given in the ED: ED Medications Discontinued Medications Generic Name Dose Route Start Last Admin Trade Name Freq PRN Reason Stop Dose Admin Oxycodone/Acetaminophen 1 combo 12/14/17 12:20 12/14/17 12:24 Percocet 5/325 - PO 12/14/17 12:21 1 combo ONCE ONE Administration Medical Decision Making - Medical Decision Making 12/14/17 14:15 57F back to the ER for reevaluation of buttock abscess. Repeat labs to see WBC trend. White count down from last visit. 12/14/17 14:17 12/14/17 16:48 Dr. Ludwig consulted. PAtient admited and started on IV Vanco *DC/Admit/Observation/Transfer Diagnosis at time of Disposition: MRSA cellulitis, Cellulitis of left buttock - Discharge Dispostion Admit: Yes - Referrals - Patient Instructions - Post Discharge Activity
[2017-12-14 13:58] LABS: ALBUMIN 3.1 g/dl (3.4-5.0); ANION GAP 7 (8-16); BLOOD UREA NITROGEN 12 mg/dL (7-18); CALCIUM 8.6 mg/dL (8.5-10.1); CHLORIDE 106 mmol/L (98-107); CO2 28 mmol/L (21-32); CREATININE 0.7 mg/dL (0.55-1.02); GLUCOSE,RANDOM 102 mg/dL (74-106); POTASSIUM 4.3 mmol/L (3.5-5.1); SGOT/AST 10 U/L (15-37); SGPT/ALT 16 U/L (12-78); SODIUM 141 mmol/L (136-145)
[2017-12-14 14:00] LABS: ALK PHOS 103 U/L (45-117); BILIRUBIN,TOTAL 0.8 mg/dL (0.2-1.0); TOT PROT 5.9 g/dl (6.4-8.2)
[2017-12-14] MEDS ORDERED: morphine CARPU-JECT 2 MG/1 ML DISP.SYRIN IVPUSH ONE (14:29)
[2017-12-14] MEDS ORDERED: ONDANSETRON 4 MG/2 ML VIAL IVPB ONE (14:29)
[2017-12-14] MEDS ORDERED: ONDANSETRON 4 MG/2 ML VIAL ONE (15:24)
[2017-12-14] MEDS ORDERED: morphine SULFATE 4 MG/ML VIAL ONE (15:24)
[2017-12-14] MEDS ORDERED: VANCOMYCIN 1,000 MG in DEXTROSE 5%-WATER - 250 ML IVPB ONE (15:35)
[2017-12-14] MEDS ORDERED: VANCOMYCIN 1 GRAM (PRE-DOCKED) 1,000 MG/250 ML BAG IVPB ONE (16:13)
[2017-12-14 17:24] VITALS: BMI 30.8
[2017-12-14] MEDS ORDERED: clonazePAM 0.5 MG TABLET PO PRN (18:27)
[2017-12-14] MEDS: SUCRALFATE 1 GM TABLET (FP) PO SCH (19:54)
[2017-12-14] MEDS: ONDANSETRON 4 MG/2 ML VIAL IVPUSH PRN (20:18)
[2017-12-14] MEDS: morphine SULFATE 4 MG/ML VIAL IVPUSH PRN (20:56)
[2017-12-14] MEDS: ALBUTEROL SO4 0.083% IH SOL 2.5 MG/3 ML VIAL.NEB. NEB SCH (21:15)
[2017-12-14] MEDS: PANTOPRAZOLE 40 MG TABLET (FP) PO SCH (21:56)
[2017-12-14] MEDS: ATORVASTATIN CA 10 MG TABLET (FP) PO SCH (21:56)
[2017-12-14] MEDS: AMITRIPTYLINE HCL 25 MG TABLET (FP) PO SCH (21:56)
[2017-12-14] MEDS ORDERED: SUCRALFATE 1 GM TABLET (FP) PO SCH (22:00)
[2017-12-14] MEDS: ACETAMINOPHEN 325 MG TABLET (FP) PO PRN (22:03)
[2017-12-15] MEDS: ALBUTEROL SO4 0.083% IH SOL 2.5 MG/3 ML VIAL.NEB. NEB SCH ×3 (07:44→21:00)
[2017-12-15] MEDS ORDERED: PT OWN MED DRAWER 7, Y5N ONE (09:20)
[2017-12-15] MEDS: morphine SULFATE 4 MG/ML VIAL IVPUSH PRN ×2 (09:22→16:43)
--- NOTE | 2017-12-15 09:32 | CONSULT ---
Consult Consult Specialty:: Surgery Referred by:: Carlos Dixon Reason for Consultation:: Abscess left buttock - History of Present Illness Chief Complaint: C/O Pain and drainage in left buttock, for 2weeks. Multiple history of MRSA related nacho infections. - History Source History Provided By: Patient Limitations to Obtaining History: No Limitations - Past Medical History Cardio/Vascular: Yes: HTN Pulmonary: Yes: COPD Gastrointestinal: Yes: Other (HERNIA REPAIR WITH COMPLICATIONS AND POST OP SBO) ...LMP: 08/04/13 ...: Yes Psych: Yes: Anxiety Musculoskeletal: Yes: Osteoarthritis, Other (KNEE SURGERY) Rheumatology: Yes: Other (OSTEOARTHRITIS) - Past Surgical History Past Surgical History: Yes: Hernia Repair - Alcohol/Substance Use Hx Alcohol Use: No History of Substance Use: reports: None - Smoking History Smoking history: Former smoker Have you smoked in the past 12 months: No Aproximately how many cigarettes per day: 0 If you are a former smoker, when did you quit?: 2011 - Social History History of Recent Travel: No Home Medications - Allergies Allergies/Adverse Reactions: Allergies Allergy/AdvReac Type Severity Reaction Status Date / Time Penicillins Allergy Hives Verified 12/14/17 11:18 Sulfa (Sulfonamide Allergy Hives Verified 12/14/17 11:18 Antibiotics) [Sulfa(Sulfonamide Antibiotics)] - Home Medications Home Medications: Ambulatory Orders Atorvastatin Ca [Lipitor] 10 mg PO HS 06/24/15 Roflumilast [Daliresp] 500 mcg PO DAILY 06/24/15 Cyanocobalamin [Vitamin B12 -] 1,000 mcg PO DAILY tablet 03/28/16 Amitriptyline HCl [Elavil -] 25 mg PO HS 09/23/16 [place]-3 Fatty Acids [Fish Oil] 300 mg PO DAILY 11/23/16 clonazePAM [Klonopin -] 0.5 mg PO PRN PRN 11/23/16 Cholecalciferol (Vitamin D3) [Vitamin D3 -] 2,000 unit PO DAILY 04/16/17 Acetaminophen [Tylenol .Regular Strength -] 650 mg PO Q4H PRN tablet 06/30/17 Albuterol 0.083% Nebulizer Grace [Ventolin 0.083% Nebulizer Soln -] 1 amp NEB TIDR #30 amp 06/30/17 Albuterol Sulfate Inhaler - [Ventolin HFA Inhaler -] 2 puff IH Q4H PRN #1 inhaler 06/30/17 Fluticasone/Vilanterol [Breo Ellipta 200-25 Mcg INH] 1 each IH DAILY 10/17/17 Pantoprazole Sodium [Protonix] 40 mg PO BID 10/17/17 Diltiazem Cd [Cardizem Cd -] 180 mg PO DAILY 10/18/17 Tiotropium [place] [Spiriva] 1 inh PO DAILY 10/18/17 Prednisone 10 mg PO DAILY #30 tablet 12/03/17 Sucralfate [Carafate -] 1 gm PO QID #120 tablet 12/03/17 Clindamycin [Cleocin -] 300 mg PO Q6H #28 capsule 12/11/17 Oxycodone HCl/Acetaminophen [Percocet 5-325 mg Tablet] 1 tab PO Q6H #8 tablet MDD 4 12/11/17 Family Disease History - Family Disease History Family Disease History: CA: Father (Lung CA), Other: Mother (HTN) Physical Exam Vital Signs: Vital Signs Temperature 98.2 F 12/15/17 06:00 Pulse Rate 77 12/15/17 06:00 Respiratory Rate 20 12/15/17 06:00 Blood Pressure 107/50 12/15/17 06:00 O2 Sat by Pulse Oximetry (%) 94 L 12/14/17 21:00 Musculoskeletal: Yes: Other (Induration in left buttock, with open wound at the center , draining blood. No pus noted. Draining abscess, infection left buttock.) Labs: CBC, BMP 12/14/17 13:08 12/14/17 13:08 Problem List - Problems (1) Abscess of left buttock Code(s): L02.31 - CUTANEOUS ABSCESS OF BUTTOCK (2) MRSA (methicillin resistant staph aureus) culture positive Code(s): Z22.322 - CARRIER OR SUSPECTED CARRIER OF METHICILLIN RESIS STAPH (3) Asthma with COPD Code(s): J44.9 - CHRONIC OBSTRUCTIVE PULMONARY DISEASE, UNSPECIFIED; J45.909 - UNSPECIFIED ASTHMA, UNCOMPLICATED (4) HTN (hypertension), benign Code(s): I10 - ESSENTIAL (PRIMARY) HYPERTENSION Assessment/Plan Celulitis wuth abscess left buttock, sponataneously drained, MRSA carrier. Continue antibiotics. Warm soaks, 3 times a day, change dressing as needed.
[2017-12-15] MEDS: ONDANSETRON 4 MG/2 ML VIAL IVPUSH PRN (09:33)
[2017-12-15] MEDS: TIOTROPIUM BROMIDE 18 MCG CAPSULES IH SCH (09:34)
[2017-12-15] MEDS: CHOLECALCIFEROL (VITAMIN D3) 1,000 UNIT TABLET (FP) PO SCH (09:34)
[2017-12-15] MEDS: CYANOCOBALAMIN 1,000 MCG TABLET (FP) PO SCH (09:34)
[2017-12-15] MEDS: PANTOPRAZOLE 40 MG TABLET (FP) PO SCH ×2 (09:35→23:03)
[2017-12-15] MEDS: SUCRALFATE 1 GM TABLET (FP) PO SCH ×4 (09:37→23:04)
[2017-12-15] MEDS: ROFLUMILAST 500 MCG TABLET PO SCH (09:38)
--- NOTE | 2017-12-15 13:30 | PN ---
Progress Note (short form) - Note Progress Note: ID Full note dictated Known to our service Just left this month History of MRSA Dr Sal just drained left glutesl abscess just blood Selected Entries 12/15/17 09:47 Temperature 98.5 F Pulse Rate 94 H Respiratory 23 Rate Blood Pressure 111/87 Assessment Cellulitis with abscess Plan Warm soaks Vancomycin 1.25grs bid Contact isolation Wounds culture Axel MORENO
[2017-12-15] MEDS ORDERED: ONDANSETRON 4 MG/2 ML VIAL IVPUSH PRN (13:47)
[2017-12-15] MEDS: ACETAMINOPHEN 325 MG TABLET (FP) PO PRN ×2 (14:04→22:11)
[2017-12-15] MEDS: oxyCODONE HCL 5 MG TABLET PO PRN ×2 (14:04→22:12)
[2017-12-15] MEDS: VANCOMYCIN 1,250 MG in DEXTROSE 5%-WATER - 250 ML IVPB SCH (16:45)
--- NOTE | 2017-12-15 16:46 | CONS ---
DATE OF CONSULTATION: DATE OF DICTATION: 12/15/2017 INFECTIOUS DISEASE CONSULTATION HISTORY OF PRESENT ILLNESS: This is 1 of multiple admissions for this 57-year-old female with multiple comorbidities and history of MRSA infection who is admitted now with chief complaint of abscess with cellulitis of the mid left buttock for 2 days. She had no fever or chills and was only recently discharged from [facility] a week ago on admission for COPD. Here she has no fever or chills, and prior to my seeing her, has apparently gone in and attempted to drain a gluteal abscess with, according to the nurses, bloody drainage. I am not sure at this time if a wound culture was sent. PAST MEDICAL HISTORY: Includes MRSA colonization, previous skin infection, COPD, hypertension, borderline diabetes, hyperlipidemia, thyroid nodule, depression, anxiety disorder. CURRENT MEDICATIONS: Atorvastatin, Elavil, albuterol, Cardizem, Spiriva, prednisone taper from December 03, 2017, Clindamycin 300 mg p.o. q.6 started December 11. ALLERGIES: SULFA AND PENICILLIN. SOCIAL HISTORY: Smoker. Denies substance abuse. HIV negative. FAMILY HISTORY: Noncontributory. REVIEW OF SYSTEMS: Respiratory: COPD history. Currently no cough, hemoptysis, shortness of breath. Cardiac: No chest pain, palpitations, syncope. Gastrointestinal: No abdominal pain, nausea, vomiting, diarrhea. Genitourinary: No dysuria, hematuria, urinary frequency. PHYSICAL EXAMINATION: General: A heavyset woman, alert, in no acute distress. Vital Signs: Temperature 98.5, pulse 94, blood pressure 111/87, respirations 23. Neck: Supple. Lungs: Clear to P and A. Heart: S1, S2. Regular rhythm without audible murmur. Abdomen: Soft, nontender, without hepatosplenomegaly. Extremities: No clubbing, cyanosis, or edema. Skin: Revealed an indurated, erythematous area in the mid left buttock. Small central area with opening and bloody drainage noted. No purulence noted currently. LABORATORY: White count of 13.6, hemoglobin 11.8, platelets 262. BUN 12, creatinine 0.7. Liver enzymes within normal limits. ASSESSMENT: A 57-year-old female with multiple comorbidities, presents with suspected recurrent methicillin-resistant Staphylococcus aureus cellulitis with early abscess of the left buttock. No systemic signs of toxicity and/or sepsis. PLAN: She should be treated with a 1.25 g q.12 of vancomycin. I will order a wound culture. Place her on contact isolation. Obtain a CRP. She is already treated with vancomycin prior to any blood cultures, therefore, will forego the blood cultures at this time given low suspicion for bacteremia. EARNEST [place] M.D. SHELLEY/[id number]
--- NOTE | 2017-12-15 19:50 | HP ---
Admitting History and Physical - Primary Care Physician PCP: Carina Dixon - Admission History of Present Illness: 57 year old female with a significant PMH of MRSA colonization, COPD, HTN, borderline diabetes, hyperlipidemia, GERD, thyroid nodule, depression, and anxiety who presents to the emergency department with a painful abscess to the middle of her left buttock for the past two days. Seen on Monday at this ER with a consuolt by Dr. Sal who deemed not neceray to do incision and drainage, ordered clindamycin with follow up. Patient back today complaining that symptoms didn't resolve and that area of cellulitis was bleeding this morning. pt given abx admitted to floor chart reviewed pt well known to me seen by Dr. Sal earlier today- History Source: Patient Limitations to Obtaining History: No Limitations - Past Medical History Cardiovascular: Yes: HTN Pulmonary: Yes: COPD Gastrointestinal: Yes: Other (HERNIA REPAIR WITH COMPLICATIONS AND POST OP SBO) ...LMP: 08/04/13 ...: Yes Heme/Onc: Yes: B12 Deficiency Psych: Yes: Anxiety Musculoskeletal: Yes: Osteoarthritis, Other (KNEE SURGERY) Rheumatology: Yes: Other (OSTEOARTHRITIS) - Past Surgical History Past Surgical History: Yes: Hernia Repair - Smoking History Smoking history: Former smoker Have you smoked in the past 12 months: No Aproximately how many cigarettes per day: 0 If you are a former smoker, when did you quit?: 2011 - Alcohol/Substance Use Hx Alcohol Use: No History of Substance Use: reports: None - Social History History of Recent Travel: No Home Medications - Allergies Allergies/Adverse Reactions: Allergies Allergy/AdvReac Type Severity Reaction Status Date / Time Penicillins Allergy Hives Verified 12/14/17 11:18 Sulfa (Sulfonamide Allergy Hives Verified 12/14/17 11:18 Antibiotics) [Sulfa(Sulfonamide Antibiotics)] - Home Medications Home Medications: Ambulatory Orders Atorvastatin Ca [Lipitor] 10 mg PO HS 06/24/15 Roflumilast [Daliresp] 500 mcg PO DAILY 06/24/15 Cyanocobalamin [Vitamin B12 -] 1,000 mcg PO DAILY tablet 03/28/16 Amitriptyline HCl [Elavil -] 25 mg PO HS 09/23/16 [place]-3 Fatty Acids [Fish Oil] 300 mg PO DAILY 11/23/16 clonazePAM [Klonopin -] 0.5 mg PO PRN PRN 11/23/16 Cholecalciferol (Vitamin D3) [Vitamin D3 -] 2,000 unit PO DAILY 04/16/17 Acetaminophen [Tylenol .Regular Strength -] 650 mg PO Q4H PRN tablet 06/30/17 Albuterol 0.083% Nebulizer Grace [Ventolin 0.083% Nebulizer Soln -] 1 amp NEB TIDR #30 amp 06/30/17 Albuterol Sulfate Inhaler - [Ventolin HFA Inhaler -] 2 puff IH Q4H PRN #1 inhaler 06/30/17 Fluticasone/Vilanterol [Breo Ellipta 200-25 Mcg INH] 1 each IH DAILY 10/17/17 Pantoprazole Sodium [Protonix] 40 mg PO BID 10/17/17 Diltiazem Cd [Cardizem Cd -] 180 mg PO DAILY 10/18/17 Tiotropium [place] [Spiriva] 1 inh PO DAILY 10/18/17 Prednisone 10 mg PO DAILY #30 tablet 12/03/17 Sucralfate [Carafate -] 1 gm PO QID #120 tablet 12/03/17 Clindamycin [Cleocin -] 300 mg PO Q6H #28 capsule 12/11/17 Oxycodone HCl/Acetaminophen [Percocet 5-325 mg Tablet] 1 tab PO Q6H #8 tablet MDD 4 12/11/17 Prednisolone 1% Ophthalmic [Pred Forte 1% -] 1 drop OU QID PRN 12/15/17 Family Disease History - Family Disease History Family Disease History: CA: Father (Lung CA), Other: Mother (HTN) Review of Systems - Review of Systems Constitutional: reports: No Symptoms Eyes: reports: No Symptoms HENT: reports: No Symptoms Neck: reports: No Symptoms Cardiovascular: reports: No Symptoms Respiratory: reports: No Symptoms Gastrointestinal: reports: No Symptoms Genitourinary: reports: No Symptoms Integumentary: reports: Other (dressing +-- buttock) Neurological: reports: No Symptoms Psychiatric: reports: Anxiety Physical Examination Vital Signs: Vital Signs Temperature 97.8 F 12/15/17 14:08 Pulse Rate 79 12/15/17 14:08 Respiratory Rate 20 12/15/17 14:08 Blood Pressure 114/53 12/15/17 14:08 O2 Sat by Pulse Oximetry (%) 94 L 12/15/17 09:00 Constitutional: Yes: No Distress, Anxious Neck: Yes: Supple Cardiovascular: Yes: Regular Rate and Rhythm Respiratory: Yes: CTA Bilaterally Gastrointestinal: Yes: Soft Edema: No Wound/Incision: Yes: Dressing Dry and Intact Neurological: Yes: Alert Psychiatric: Yes: Alert Labs: CBC, BMP 12/14/17 13:08 12/14/17 13:08 Problem List - Problems (1) Anxiety Code(s): F41.9 - ANXIETY DISORDER, UNSPECIFIED (2) Abscess of left buttock Code(s): L02.31 - CUTANEOUS ABSCESS OF BUTTOCK (3) Cellulitis of left buttock Code(s): L03.317 - CELLULITIS OF BUTTOCK (4) COPD (chronic obstructive pulmonary disease) Code(s): J44.9 - CHRONIC OBSTRUCTIVE PULMONARY DISEASE, UNSPECIFIED Assessment/Plan Abx local care meds reviewed will follow Discussed with pt.
[2017-12-15] MEDS: prednisoLONE ACETATE 1% OPHTH SUSP 5 ML BOTTLE OU PRN (21:50)
[2017-12-15] MEDS: AMITRIPTYLINE HCL 25 MG TABLET (FP) PO SCH (23:04)
[2017-12-15] MEDS: ATORVASTATIN CA 10 MG TABLET (FP) PO SCH (23:04)
[2017-12-16] MEDS ORDERED: PT OWN MED DRAWER 7, Y5N ONE ×7 (04:02→21:17)
[2017-12-16] MEDS: VANCOMYCIN 1,250 MG in DEXTROSE 5%-WATER - 250 ML IVPB SCH ×2 (04:04→14:43)
[2017-12-16] MEDS: ACETAMINOPHEN 325 MG TABLET (FP) PO PRN ×3 (04:15→23:45)
[2017-12-16] MEDS: oxyCODONE HCL 5 MG TABLET PO PRN ×4 (04:17→23:44)
[2017-12-16 08:10] LABS: BASO % 0.2 % (0-2.0); EOS % 2.2 % (0-4.5); HEMOGLOBIN 10.4 GM/dL (10.7-15.3); LYMPH % 38.2 % (8-40); MCHC 33.6 g/dl (32.0-36.0); MEAN CELL VOLUME 89.1 fl (80-96); MEAN PLT VOLUME 6.8 fl (7.5-11.1); MONO % 7.4 % (3.8-10.2); PLATELET COUNT 236 K/MM3 (134-434); RBC 3.48 M/mm3 (3.60-5.2); RDW 14.4 % (11.6-15.6); WHITE BLOOD COUNT 5.1 K/mm3 (4.0-10.0)
[2017-12-16] MEDS: ALBUTEROL SO4 0.083% IH SOL 2.5 MG/3 ML VIAL.NEB. NEB SCH ×3 (08:10→20:16)
[2017-12-16 08:34] LABS: ALBUMIN 2.7 g/dl (3.4-5.0); ALK PHOS 76 U/L (45-117); ANION GAP 5 (8-16); BILIRUBIN,TOTAL 0.4 mg/dL (0.2-1.0); BLOOD UREA NITROGEN 16 mg/dL (7-18); CALCIUM 8.3 mg/dL (8.5-10.1); CHLORIDE 104 mmol/L (98-107); CO2 31 mmol/L (21-32); CREATININE 0.7 mg/dL (0.55-1.02); GLUCOSE,RANDOM 100 mg/dL (74-106); POTASSIUM 4.6 mmol/L (3.5-5.1); SGOT/AST 12 U/L (15-37); SGPT/ALT 15 U/L (12-78); SODIUM 140 mmol/L (136-145); TOT PROT 5.2 g/dl (6.4-8.2)
--- NOTE | 2017-12-16 09:12 | PN ---
Progress Note (short form) - Note Progress Note: pt feels better pain + - better afebrile mood stable Vital Signs Temp 98.7 F 12/16/17 06:00 Pulse 77 12/16/17 06:00 Resp 20 12/16/17 06:00 BP 105/63 12/16/17 06:00 Pulse Ox 94 L 12/15/17 21:00 Intake & Output 12/15/17 12/15/17 12/16/17 11:59 23:59 11:59 Intake Total 500 Balance 500 Intake: Oral 500 Other: Voiding Method Toilet Toilet Toilet # Unmeasured Voids Void 1 1 1 Bowel Movement No No Active Medications Acetaminophen (Tylenol -) 650 mg PO Q6H PRN PRN Reason: FEVER Last Admin: 12/16/17 04:15 Dose: 650 mg Albuterol Sulfate (Ventolin 0.083% Nebulizer Soln -) 1 amp NEB RTID [facility] Last Admin: 12/16/17 08:10 Dose: 1 amp Amitriptyline HCl (Elavil -) 25 mg PO HS [facility] Last Admin: 12/15/17 23:04 Dose: 25 mg Atorvastatin [place] (Lipitor -) 10 mg PO HS [facility] Last Admin: 12/15/17 23:04 Dose: 10 mg Cholecalciferol (Vitamin D3 -) 2,000 unit PO DAILY [facility] Last Admin: 12/15/17 09:34 Dose: 2,000 unit Clonazepam (Klonopin -) 0.5 mg PO DAILY PRN PRN Reason: ANXIETY Cyanocobalamin (Vitamin B12 -) 1,000 mcg PO DAILY [facility] Last Admin: 12/15/17 09:34 Dose: 1,000 mcg Diltiazem HCl (Cardizem Cd -) 180 mg PO DAILY [facility] Last Admin: 12/15/17 09:37 Dose: 180 mg Vancomycin HCl 1,250 mg/ (Dextrose) 250 mls @ 125 mls/hr IVPB BID@0300,1500 [facility] PRN Reason: Protocol Last Admin: 12/16/17 04:04 Dose: 125 mls/hr Morphine Sulfate (Morphine Sulfate) 2 mg IVPUSH Q4H PRN PRN Reason: PAIN LEVEL 4 - 6 Last Admin: 12/15/17 16:43 Dose: 2 mg Ondansetron HCl (Zofran Injection) 4 mg IVPUSH Q4H PRN PRN Reason: NAUSEA AND/OR VOMITING Last Admin: 12/15/17 16:43 Dose: 4 mg Oxycodone HCl (Roxicodone -) 5 mg PO Q4H PRN PRN Reason: PAIN LEVEL 6-10 Last Admin: 12/16/17 09:05 Dose: 5 mg Pantoprazole Sodium (Protonix -) 40 mg PO BID [facility] Last Admin: 12/15/17 23:03 Dose: 40 mg Prednisolone Acetate (Pred Forte 1% -) 1 drop OU Q6H PRN PRN Reason: eye irritation as per pt Last Admin: 12/15/17 21:50 Dose: 1 drop Roflumilast (Daliresp -) 500 mcg PO DAILY [facility] Last Admin: 12/15/17 09:38 Dose: 500 mcg Sucralfate (Carafate -) 1 gm PO QID [facility] Last Admin: 12/15/17 23:04 Dose: 1 gm Tiotropium [place] (Spiriva -) 1 puff IH DAILY [facility] Last Admin: 12/15/17 09:34 Dose: 1 puff CBC, BMP 12/16/17 07:30 12/16/17 07:30 Physical Examination Constitutional: Yes: No Distress, calm Neck: Yes: Supple Cardiovascular: Yes: Regular Rate and Rhythm Respiratory: Yes: CTA Bilaterally Gastrointestinal: Yes: Soft Edema: No Wound/Incision: Yes: Dressing Dry and Intact Neurological: Yes: Alert Psychiatric: Yes: Alert Problem List - Problems (1) Anxiety Code(s): F41.9 - ANXIETY DISORDER, UNSPECIFIED (2) Abscess of left buttock Code(s): L02.31 - CUTANEOUS ABSCESS OF BUTTOCK (3) Cellulitis of left buttock Code(s): L03.317 - CELLULITIS OF BUTTOCK (4) COPD (chronic obstructive pulmonary disease) Code(s): J44.9 - CHRONIC OBSTRUCTIVE PULMONARY DISEASE, UNSPECIFIED Assessment/Plan Abx local care f/u cultures will follow mrsa precautions in place.
[2017-12-16] MEDS: prednisoLONE ACETATE 1% OPHTH SUSP 5 ML BOTTLE OU PRN ×3 (09:22→21:22)
[2017-12-16] MEDS: CYANOCOBALAMIN 1,000 MCG TABLET (FP) PO SCH (10:16)
[2017-12-16] MEDS: CHOLECALCIFEROL (VITAMIN D3) 1,000 UNIT TABLET (FP) PO SCH (10:16)
[2017-12-16] MEDS: PANTOPRAZOLE 40 MG TABLET (FP) PO SCH ×2 (10:16→21:22)
[2017-12-16] MEDS: SUCRALFATE 1 GM TABLET (FP) PO SCH ×4 (10:16→21:22)
[2017-12-16] MEDS: TIOTROPIUM BROMIDE 18 MCG CAPSULES IH SCH (10:16)
[2017-12-16] MEDS: ROFLUMILAST 500 MCG TABLET PO SCH (10:17)
--- NOTE | 2017-12-16 10:18 | PN ---
Progress Note (short form) - Note Progress Note: ID Vancomycin Selected Entries 12/16/17 06:00 Temperature 98.7 F Pulse Rate 77 Respiratory 20 Rate Blood Pressure 105/63 Pain less today Exam some induration and tenderness buttock but not fluctuant and no drainage Microbiology Laboratory Tests 12/16/17 07:30 WBC 5.1 D Hgb 10.4 L D Hct 31.0 L Plt Count 236 Assessment Suspected MRSA recurrent infection [facility] Discharge tomorrow on po Clindamycin Wound c/s pending as of now Axel MORENO
[2017-12-16] MEDS ORDERED: INSULIN (NOVOLOG) ASPART 100 UNITS/ML 10ML VIAL ONE (17:37)
[2017-12-16] MEDS: ATORVASTATIN CA 10 MG TABLET (FP) PO SCH (21:22)
[2017-12-16] MEDS: AMITRIPTYLINE HCL 25 MG TABLET (FP) PO SCH (21:22)
[2017-12-17] MEDS: VANCOMYCIN 1,250 MG in DEXTROSE 5%-WATER - 250 ML IVPB SCH ×2 (03:00→14:21)
[2017-12-17] MEDS ORDERED: PT OWN MED DRAWER 7, Y5N ONE ×4 (08:54→22:59)
[2017-12-17] MEDS: oxyCODONE HCL 5 MG TABLET PO PRN ×3 (09:10→23:35)
[2017-12-17] MEDS: PANTOPRAZOLE 40 MG TABLET (FP) PO SCH ×2 (09:11→22:46)
[2017-12-17] MEDS: CYANOCOBALAMIN 1,000 MCG TABLET (FP) PO SCH (09:12)
[2017-12-17] MEDS: CHOLECALCIFEROL (VITAMIN D3) 1,000 UNIT TABLET (FP) PO SCH (09:12)
[2017-12-17] MEDS: TIOTROPIUM BROMIDE 18 MCG CAPSULES IH SCH (09:12)
[2017-12-17] MEDS: ROFLUMILAST 500 MCG TABLET PO SCH (09:13)
[2017-12-17] MEDS: SUCRALFATE 1 GM TABLET (FP) PO SCH ×4 (09:14→22:47)
[2017-12-17] MEDS: ALBUTEROL SO4 0.083% IH SOL 2.5 MG/3 ML VIAL.NEB. NEB SCH ×3 (09:17→20:19)
[2017-12-17] MEDS: prednisoLONE ACETATE 1% OPHTH SUSP 5 ML BOTTLE OU PRN (09:17)
[2017-12-17] MEDS: HEPARIN NA (PORCINE) 5,000 UNITS/ML 1ML VIAL SQ SCH ×2 (11:04→22:47)
--- NOTE | 2017-12-17 12:05 | PN ---
Progress Note, Physician - Current Medication List Current Medications: Active Medications Acetaminophen (Tylenol -) 650 mg PO Q6H PRN PRN Reason: FEVER Last Admin: 12/16/17 23:45 Dose: 650 mg Acetaminophen (Tylenol -) 650 mg PO Q4H PRN PRN Reason: PAIN 6-10 Albuterol Sulfate (Ventolin 0.083% Nebulizer Soln -) 1 amp NEB RTID [facility] Last Admin: 12/17/17 09:17 Dose: 1 amp Amitriptyline HCl (Elavil -) 25 mg PO HS [facility] Last Admin: 12/16/17 21:22 Dose: 25 mg Atorvastatin Calcium (Lipitor -) 10 mg PO HS [facility] Last Admin: 12/16/17 21:22 Dose: 10 mg Cholecalciferol (Vitamin D3 -) 2,000 unit PO DAILY [facility] Last Admin: 12/17/17 09:12 Dose: 2,000 unit Clonazepam (Klonopin -) 0.5 mg PO DAILY PRN PRN Reason: ANXIETY Cyanocobalamin (Vitamin B12 -) 1,000 mcg PO DAILY [facility] Last Admin: 12/17/17 09:12 Dose: 1,000 mcg Diltiazem HCl (Cardizem Cd -) 180 mg PO DAILY [facility] Last Admin: 12/17/17 09:12 Dose: 180 mg Heparin Sodium (Porcine) (Heparin -) 5,000 unit SQ BID [facility] Last Admin: 12/17/17 11:04 Dose: 5,000 unit Vancomycin HCl 1,250 mg/ (Dextrose) 250 mls @ 125 mls/hr IVPB BID@0300,1500 [facility] PRN Reason: Protocol Last Admin: 12/17/17 03:00 Dose: 125 mls/hr Morphine Sulfate (Morphine Sulfate) 2 mg IVPUSH Q4H PRN PRN Reason: PAIN LEVEL 4 - 6 Last Admin: 12/15/17 16:43 Dose: 2 mg Ondansetron HCl (Zofran Injection) 4 mg IVPUSH Q4H PRN PRN Reason: NAUSEA AND/OR VOMITING Last Admin: 12/15/17 16:43 Dose: 4 mg Oxycodone HCl (Roxicodone -) 5 mg PO Q4H PRN PRN Reason: PAIN LEVEL 6-10 Last Admin: 12/17/17 09:10 Dose: 5 mg Pantoprazole Sodium (Protonix -) 40 mg PO BID [facility] Last Admin: 12/17/17 09:11 Dose: 40 mg Prednisolone Acetate (Pred Forte 1% -) 1 drop OU Q6H PRN PRN Reason: eye irritation as per pt Last Admin: 12/17/17 09:17 Dose: 1 drop Roflumilast (Daliresp -) 500 mcg PO DAILY [facility] Last Admin: 12/17/17 09:13 Dose: 500 mcg Sucralfate (Carafate -) 1 gm PO QID [facility] Last Admin: 12/17/17 09:14 Dose: 1 gm Tiotropium [place] (Spiriva -) 1 puff IH DAILY [facility] Last Admin: 12/17/17 09:12 Dose: 1 puff - Objective Vital Signs: Vital Signs Temperature 98.1 F 12/17/17 09:00 Pulse Rate 84 12/17/17 09:00 Respiratory Rate 18 12/17/17 09:00 Blood Pressure 120/71 12/17/17 09:00 O2 Sat by Pulse Oximetry (%) 99 12/17/17 09:00 Labs: CBC, BMP 12/16/17 07:30 12/16/17 07:30 Problem List - Problems (1) Abscess of left buttock Code(s): L02.31 - CUTANEOUS ABSCESS OF BUTTOCK (2) MRSA (methicillin resistant staph aureus) culture positive Code(s): Z22.322 - CARRIER OR SUSPECTED CARRIER OF METHICILLIN RESIS STAPH (3) Asthma with COPD Code(s): J44.9 - CHRONIC OBSTRUCTIVE PULMONARY DISEASE, UNSPECIFIED; J45.909 - UNSPECIFIED ASTHMA, UNCOMPLICATED (4) HTN (hypertension), benign Code(s): I10 - ESSENTIAL (PRIMARY) HYPERTENSION Assessment/Plan Surgery: Patient has less pain . Left buttock still indurated , less tender. Swelling has improved. There is no drainage. Culture : Positive for staph coagulase positive. Continue antibiotics, warm soaks, upon discharge.
--- NOTE | 2017-12-17 14:01 | PN ---
Progress Note (short form) - Note Progress Note: pt feels better pain + - better afebrile mood stable. all f/u noted Vital Signs Temp 98 F 12/17/17 13:41 Pulse 83 12/17/17 13:41 Resp 18 12/17/17 13:41 BP 123/65 12/17/17 13:41 Pulse Ox 99 12/17/17 09:00 Intake & Output 12/16/17 12/17/17 12/17/17 23:59 11:59 23:59 Intake Total 1250 250 Balance 1250 250 Intake: IVPB 250 250 Oral 1000 Other: Voiding Method Toilet Toilet # Unmeasured Voids Void 3 2 Bowel Movement No No Active Medications Acetaminophen (Tylenol -) 650 mg PO Q6H PRN PRN Reason: FEVER Last Admin: 12/16/17 04:15 Dose: 650 mg Albuterol Sulfate (Ventolin 0.083% Nebulizer Soln -) 1 amp NEB RTID [facility] Last Admin: 12/16/17 08:10 Dose: 1 amp Amitriptyline HCl (Elavil -) 25 mg PO HS [facility] Last Admin: 12/15/17 23:04 Dose: 25 mg Atorvastatin Calcium (Lipitor -) 10 mg PO HS [facility] Last Admin: 12/15/17 23:04 Dose: 10 mg Cholecalciferol (Vitamin D3 -) 2,000 unit PO DAILY [facility] Last Admin: 12/15/17 09:34 Dose: 2,000 unit Clonazepam (Klonopin -) 0.5 mg PO DAILY PRN PRN Reason: ANXIETY Cyanocobalamin (Vitamin B12 -) 1,000 mcg PO DAILY [facility] Last Admin: 12/15/17 09:34 Dose: 1,000 mcg Diltiazem HCl (Cardizem Cd -) 180 mg PO DAILY [facility] Last Admin: 12/15/17 09:37 Dose: 180 mg Vancomycin HCl 1,250 mg/ (Dextrose) 250 mls @ 125 mls/hr IVPB BID@0300,1500 [facility] PRN Reason: Protocol Last Admin: 12/16/17 04:04 Dose: 125 mls/hr Morphine Sulfate (Morphine Sulfate) 2 mg IVPUSH Q4H PRN PRN Reason: PAIN LEVEL 4 - 6 Last Admin: 12/15/17 16:43 Dose: 2 mg Ondansetron HCl (Zofran Injection) 4 mg IVPUSH Q4H PRN PRN Reason: NAUSEA AND/OR VOMITING Last Admin: 12/15/17 16:43 Dose: 4 mg Oxycodone HCl (Roxicodone -) 5 mg PO Q4H PRN PRN Reason: PAIN LEVEL 6-10 Last Admin: 12/16/17 09:05 Dose: 5 mg Pantoprazole Sodium (Protonix -) 40 mg PO BID [facility] Last Admin: 12/15/17 23:03 Dose: 40 mg Prednisolone Acetate (Pred Forte 1% -) 1 drop OU Q6H PRN PRN Reason: eye irritation as per pt Last Admin: 12/15/17 21:50 Dose: 1 drop Roflumilast (Daliresp -) 500 mcg PO DAILY [facility] Last Admin: 12/15/17 09:38 Dose: 500 mcg Sucralfate (Carafate -) 1 gm PO QID [facility] Last Admin: 12/15/17 23:04 Dose: 1 gm Tiotropium [place] (Spiriva -) 1 puff IH DAILY [facility] Last Admin: 12/15/17 09:34 Dose: 1 puff CBC, BMP 12/16/17 07:30 12/16/17 07:30 Microbiology 12/15/17 14:30 Wound Culture - Preliminary Buttock - Left Staphylococcus Latex Coag Pos Physical Examination Constitutional: Yes: No Distress, calm Neck: Yes: Supple Cardiovascular: Yes: Regular Rate and Rhythm Respiratory: Yes: CTA Bilaterally Gastrointestinal: Yes: Soft Edema: No Wound/Incision: Yes: Dressing Dry and Intact Neurological: Yes: Alert Psychiatric: Yes: Alert Problem List - Problems (1) Anxiety Code(s): F41.9 - ANXIETY DISORDER, UNSPECIFIED (2) Abscess of left buttock Code(s): L02.31 - CUTANEOUS ABSCESS OF BUTTOCK (3) Cellulitis of left buttock Code(s): L03.317 - CELLULITIS OF BUTTOCK (4) COPD (chronic obstructive pulmonary disease) Code(s): J44.9 - CHRONIC OBSTRUCTIVE PULMONARY DISEASE, UNSPECIFIED Assessment/Plan Abx local care f/u cultures cleared by i/d to go but pt says will not be able to go today mrsa precautions in place. anticipate d/c in am on po abx dvt prophylaxis . will follow
[2017-12-17] MEDS: AMITRIPTYLINE HCL 25 MG TABLET (FP) PO SCH (22:46)
[2017-12-17] MEDS: ATORVASTATIN CA 10 MG TABLET (FP) PO SCH (22:46)
[2017-12-17] MEDS: ACETAMINOPHEN 325 MG TABLET (FP) PO PRN (23:36)
[2017-12-18] MEDS ORDERED: PT OWN MED DRAWER 7, Y5N ONE ×2 (03:10→09:25)
[2017-12-18] MEDS: VANCOMYCIN 1,250 MG in DEXTROSE 5%-WATER - 250 ML IVPB SCH ×2 (03:13→16:14)
[2017-12-18] MEDS: ALBUTEROL SO4 0.083% IH SOL 2.5 MG/3 ML VIAL.NEB. NEB SCH ×3 (08:06→21:00)
[2017-12-18] MEDS: PANTOPRAZOLE 40 MG TABLET (FP) PO SCH ×2 (09:52→21:49)
[2017-12-18] MEDS: CHOLECALCIFEROL (VITAMIN D3) 1,000 UNIT TABLET (FP) PO SCH (09:52)
[2017-12-18] MEDS: SUCRALFATE 1 GM TABLET (FP) PO SCH ×4 (09:52→21:50)
[2017-12-18] MEDS: CYANOCOBALAMIN 1,000 MCG TABLET (FP) PO SCH (09:52)
[2017-12-18] MEDS: TIOTROPIUM BROMIDE 18 MCG CAPSULES IH SCH (09:53)
[2017-12-18] MEDS: ROFLUMILAST 500 MCG TABLET PO SCH (09:53)
[2017-12-18] MEDS: HEPARIN NA (PORCINE) 5,000 UNITS/ML 1ML VIAL SQ SCH ×2 (09:53→21:50)
[2017-12-18] MEDS: prednisoLONE ACETATE 1% OPHTH SUSP 5 ML BOTTLE OU PRN ×2 (10:03→21:51)
--- NOTE | 2017-12-18 12:00 | PN ---
Progress Note (short form) - Note Progress Note: patient seen and examined Comfortable Pain present but improved Afebrile Culture showed MRSA--- resistant to clindamycin Vital Signs Temp 97.7 F 12/18/17 06:00 Pulse 82 12/18/17 06:00 Resp 18 12/18/17 06:00 BP 113/68 12/18/17 06:00 Pulse Ox 95 12/17/17 21:00 Intake & Output 12/17/17 12/17/17 12/18/17 11:59 23:59 11:59 Intake Total 250 750 250 Balance 250 750 250 Intake: IVPB 250 250 250 Oral 500 Other: Voiding Method Toilet Toilet Toilet # Unmeasured Voids Void 2 2 1 Bowel Movement No No No Active Medications Acetaminophen (Tylenol -) 650 mg PO Q6H PRN PRN Reason: FEVER Last Admin: 12/17/17 23:36 Dose: 650 mg Acetaminophen (Tylenol -) 650 mg PO Q4H PRN PRN Reason: PAIN 6-10 Albuterol Sulfate (Ventolin 0.083% Nebulizer Soln -) 1 amp NEB RTID [facility] Last Admin: 12/18/17 08:06 Dose: 1 amp Amitriptyline HCl (Elavil -) 25 mg PO HS [facility] Last Admin: 12/17/17 22:46 Dose: 25 mg Atorvastatin Calcium (Lipitor -) 10 mg PO HS [facility] Last Admin: 12/17/17 22:46 Dose: 10 mg Cholecalciferol (Vitamin D3 -) 2,000 unit PO DAILY [facility] Last Admin: 12/18/17 09:52 Dose: 2,000 unit Cyanocobalamin (Vitamin B12 -) 1,000 mcg PO DAILY [facility] Last Admin: 12/18/17 09:52 Dose: 1,000 mcg Diltiazem HCl (Cardizem Cd -) 180 mg PO DAILY [facility] Last Admin: 12/18/17 09:52 Dose: 180 mg Heparin Sodium (Porcine) (Heparin -) 5,000 unit SQ BID [facility] Last Admin: 12/18/17 09:53 Dose: Not Given Vancomycin HCl 1,250 mg/ (Dextrose) 250 mls @ 125 mls/hr IVPB BID@0300,1500 [facility] PRN Reason: Protocol Last Admin: 12/18/17 03:13 Dose: 125 mls/hr Ondansetron HCl (Zofran Injection) 4 mg IVPUSH Q4H PRN PRN Reason: NAUSEA AND/OR VOMITING Last Admin: 12/15/17 16:43 Dose: 4 mg Oxycodone HCl (Roxicodone -) 5 mg PO Q4H PRN PRN Reason: PAIN LEVEL 6-10 Last Admin: 12/17/17 23:35 Dose: 5 mg Pantoprazole Sodium (Protonix -) 40 mg PO BID [facility] Last Admin: 12/18/17 09:52 Dose: 40 mg Prednisolone Acetate (Pred Forte 1% -) 1 drop OU Q6H PRN PRN Reason: eye irritation as per pt Last Admin: 12/18/17 10:03 Dose: 1 drop Roflumilast (Daliresp -) 500 mcg PO DAILY [facility] Last Admin: 12/18/17 09:53 Dose: 500 mcg Sucralfate (Carafate -) 1 gm PO QID [facility] Last Admin: 12/18/17 09:52 Dose: 1 gm Tiotropium [place] (Spiriva -) 1 puff IH DAILY [facility] Last Admin: 12/18/17 09:53 Dose: 1 puff CBC, BMP 12/16/17 07:30 12/16/17 07:30 Microbiology 12/15/17 14:30 Gram Stain - Final Buttock - Left Wound Culture - Final Mr Landaverde Aureus Physical Examination Constitutional: Yes: No Distress, calm. comfortable Neck: Yes: Supple. no JVD Cardiovascular: Yes: Regular Rate and Rhythm Respiratory: Yes: CTA Bilaterally Gastrointestinal: Yes: Soft Edema: No Wound/Incision: Yes: Dressing Dry and Intact Neurological: Yes: Alert Psychiatric: Yes: Alert Problem List - Problems (1) Anxiety Code(s): F41.9 - ANXIETY DISORDER, UNSPECIFIED (2) Abscess of left buttock Code(s): L02.31 - CUTANEOUS ABSCESS OF BUTTOCK (3) Cellulitis of left buttock Code(s): L03.317 - CELLULITIS OF BUTTOCK (4) COPD (chronic obstructive pulmonary disease) Code(s): J44.9 - CHRONIC OBSTRUCTIVE PULMONARY DISEASE, UNSPECIFIED Assessment/Plan Abx local care discussed with ID today Patient is resistant to clindamycin Plan prescribed Bactrim as patient is allergic to sulfa Continue vancomycin today and tomorrow Anticipated discharge on 12/21 --- off antibiotics as per ID mrsa precautions in place. dvt prophylaxis . will follow
[2017-12-18] MEDS: oxyCODONE HCL 5 MG TABLET PO PRN ×2 (13:25→21:50)
[2017-12-18] MEDS: ACETAMINOPHEN 325 MG TABLET (FP) PO PRN ×2 (13:25→18:47)
[2017-12-18] MEDS: ATORVASTATIN CA 10 MG TABLET (FP) PO SCH (21:49)
[2017-12-18] MEDS: AMITRIPTYLINE HCL 25 MG TABLET (FP) PO SCH (21:49)
[2017-12-19] MEDS: VANCOMYCIN 1,250 MG in DEXTROSE 5%-WATER - 250 ML IVPB SCH ×2 (02:20→14:09)
[2017-12-19] MEDS: ALBUTEROL SO4 0.083% IH SOL 2.5 MG/3 ML VIAL.NEB. NEB SCH ×2 (08:40→14:31)
[2017-12-19] MEDS: CHOLECALCIFEROL (VITAMIN D3) 1,000 UNIT TABLET (FP) PO SCH (09:10)
[2017-12-19] MEDS: PANTOPRAZOLE 40 MG TABLET (FP) PO SCH ×2 (09:10→21:43)
[2017-12-19] MEDS: CYANOCOBALAMIN 1,000 MCG TABLET (FP) PO SCH (09:11)
[2017-12-19] MEDS: TIOTROPIUM BROMIDE 18 MCG CAPSULES IH SCH (09:11)
[2017-12-19] MEDS: HEPARIN NA (PORCINE) 5,000 UNITS/ML 1ML VIAL SQ SCH ×2 (09:11→21:48)
[2017-12-19] MEDS: SUCRALFATE 1 GM TABLET (FP) PO SCH ×4 (09:11→21:43)
[2017-12-19] MEDS: prednisoLONE ACETATE 1% OPHTH SUSP 5 ML BOTTLE OU PRN ×2 (09:12→17:30)
[2017-12-19] MEDS: ROFLUMILAST 500 MCG TABLET PO SCH (09:20)
--- NOTE | 2017-12-19 10:28 | PN ---
Progress Note, Physician - Current Medication List Current Medications: Active Medications Acetaminophen (Tylenol -) 650 mg PO Q6H PRN PRN Reason: FEVER Last Admin: 12/18/17 18:47 Dose: 650 mg Acetaminophen (Tylenol -) 650 mg PO Q4H PRN PRN Reason: PAIN 6-10 Last Admin: 12/18/17 13:25 Dose: 650 mg Albuterol Sulfate (Ventolin 0.083% Nebulizer Soln -) 1 amp NEB RTID [facility] Last Admin: 12/19/17 08:40 Dose: Not Given Amitriptyline HCl (Elavil -) 25 mg PO HS [facility] Last Admin: 12/18/17 21:49 Dose: 25 mg Atorvastatin Calcium (Lipitor -) 10 mg PO [facility] Last Admin: 12/18/17 21:49 Dose: 10 mg Cholecalciferol (Vitamin D3 -) 2,000 unit PO DAILY [facility] Last Admin: 12/19/17 09:10 Dose: 2,000 unit Cyanocobalamin (Vitamin B12 -) 1,000 mcg PO DAILY [facility] Last Admin: 12/19/17 09:11 Dose: 1,000 mcg Diltiazem HCl (Cardizem Cd -) 180 mg PO DAILY [facility] Last Admin: 12/19/17 09:10 Dose: 180 mg Heparin Sodium (Porcine) (Heparin -) 5,000 unit SQ BID [facility] Last Admin: 12/19/17 09:11 Dose: 5,000 unit Vancomycin HCl 1,250 mg/ (Dextrose) 250 mls @ 125 mls/hr IVPB BID@0300,1500 [facility] PRN Reason: Protocol Last Admin: 12/19/17 02:20 Dose: 125 mls/hr Ondansetron HCl (Zofran Injection) 4 mg IVPUSH Q4H PRN PRN Reason: NAUSEA AND/OR VOMITING Last Admin: 12/15/17 16:43 Dose: 4 mg Oxycodone HCl (Roxicodone -) 5 mg PO Q4H PRN PRN Reason: PAIN LEVEL 6-10 Last Admin: 12/18/17 21:50 Dose: 5 mg Pantoprazole Sodium (Protonix -) 40 mg PO BID [facility] Last Admin: 12/19/17 09:10 Dose: 40 mg Prednisolone Acetate (Pred Forte 1% -) 1 drop OU Q6H PRN PRN Reason: eye irritation as per pt Last Admin: 12/19/17 09:12 Dose: 1 drop Roflumilast (Daliresp -) 500 mcg PO DAILY [facility] Last Admin: 12/19/17 09:20 Dose: 500 mcg Sucralfate (Carafate -) 1 gm PO QID [facility] Last Admin: 12/19/17 09:11 Dose: 1 gm Tiotropium [place] (Spiriva -) 1 puff IH DAILY [facility] Last Admin: 12/19/17 09:11 Dose: 1 puff - Objective Vital Signs: Vital Signs Temperature 98.1 F 12/19/17 06:34 Pulse Rate 79 12/19/17 06:34 Respiratory Rate 17 12/19/17 06:34 Blood Pressure 134/70 12/19/17 06:34 O2 Sat by Pulse Oximetry (%) 96 12/18/17 21:00 Labs: CBC, BMP 12/16/17 07:30 12/16/17 07:30 Problem List - Problems (1) Abscess of left buttock Code(s): L02.31 - CUTANEOUS ABSCESS OF BUTTOCK (2) MRSA (methicillin resistant staph aureus) culture positive Code(s): Z22.322 - CARRIER OR SUSPECTED CARRIER OF METHICILLIN RESIS STAPH (3) Asthma with COPD Code(s): J44.9 - CHRONIC OBSTRUCTIVE PULMONARY DISEASE, UNSPECIFIED; J45.909 - UNSPECIFIED ASTHMA, UNCOMPLICATED (4) HTN (hypertension), benign Code(s): I10 - ESSENTIAL (PRIMARY) HYPERTENSION Assessment/Plan Surgery: Patient is afebrile, has no pain. Induration in left buttock is getting smaller , and not tender. Improving infection left buttock. Continue antibiotics.
--- NOTE | 2017-12-19 12:41 | PN ---
Progress Note, Physician Chief Complaint: no pain - Current Medication List Current Medications: Active Medications Acetaminophen (Tylenol -) 650 mg PO Q6H PRN PRN Reason: FEVER Last Admin: 12/18/17 18:47 Dose: 650 mg Acetaminophen (Tylenol -) 650 mg PO Q4H PRN PRN Reason: PAIN 6-10 Last Admin: 12/18/17 13:25 Dose: 650 mg Albuterol Sulfate (Ventolin 0.083% Nebulizer Soln -) 1 amp NEB RTID [facility] Last Admin: 12/19/17 08:40 Dose: Not Given Amitriptyline HCl (Elavil -) 25 mg PO HS [facility] Last Admin: 12/18/17 21:49 Dose: 25 mg Atorvastatin Calcium (Lipitor -) 10 mg PO HS [facility] Last Admin: 12/18/17 21:49 Dose: 10 mg Cholecalciferol (Vitamin D3 -) 2,000 unit PO DAILY [facility] Last Admin: 12/19/17 09:10 Dose: 2,000 unit Cyanocobalamin (Vitamin B12 -) 1,000 mcg PO DAILY [facility] Last Admin: 12/19/17 09:11 Dose: 1,000 mcg Diltiazem HCl (Cardizem Cd -) 180 mg PO DAILY [facility] Last Admin: 12/19/17 09:10 Dose: 180 mg Heparin Sodium (Porcine) (Heparin -) 5,000 unit SQ BID [facility] Last Admin: 12/19/17 09:11 Dose: 5,000 unit Vancomycin HCl 1,250 mg/ (Dextrose) 250 mls @ 125 mls/hr IVPB BID@0300,1500 [facility] PRN Reason: Protocol Ondansetron HCl (Zofran Injection) 4 mg IVPUSH Q4H PRN PRN Reason: NAUSEA AND/OR VOMITING Last Admin: 12/15/17 16:43 Dose: 4 mg Pantoprazole Sodium (Protonix -) 40 mg PO BID [facility] Last Admin: 12/19/17 09:10 Dose: 40 mg Prednisolone Acetate (Pred Forte 1% -) 1 drop OU Q6H PRN PRN Reason: eye irritation as per pt Last Admin: 12/19/17 09:12 Dose: 1 drop Roflumilast (Daliresp -) 500 mcg PO DAILY [facility] Last Admin: 12/19/17 09:20 Dose: 500 mcg Sucralfate (Carafate -) 1 gm PO QID [facility] Last Admin: 12/19/17 09:11 Dose: 1 gm Tiotropium [place] (Spiriva -) 1 puff IH DAILY [facility] Last Admin: 12/19/17 09:11 Dose: 1 puff - Objective Vital Signs: Vital Signs Temperature 98.1 F 12/19/17 06:34 Pulse Rate 79 12/19/17 06:34 Respiratory Rate 17 12/19/17 06:34 Blood Pressure 134/70 12/19/17 06:34 O2 Sat by Pulse Oximetry (%) 96 12/18/17 21:00 Constitutional: Yes: No Distress Cardiovascular: Yes: Regular Rate and Rhythm Respiratory: Yes: Diminished Gastrointestinal: Yes: Normal Bowel Sounds, Soft. No: Tenderness Genitourinary: Yes: Other (left buttock-- induration, no open wound , mild tenderness, not warm) Edema: No Labs: CBC, BMP 12/16/17 07:30 12/16/17 07:30 Problem List - Problems (1) Abscess of left buttock Code(s): L02.31 - CUTANEOUS ABSCESS OF BUTTOCK (2) Anxiety Code(s): F41.9 - ANXIETY DISORDER, UNSPECIFIED (3) MRSA (methicillin resistant staph aureus) culture positive Code(s): Z22.322 - CARRIER OR SUSPECTED CARRIER OF METHICILLIN RESIS STAPH Assessment/Plan PLAN MRSA- Resistant to Clindamycin continue with Vanco ID follow up for duration of antibiotics
--- NOTE | 2017-12-19 17:06 | PN ---
Progress Note, Physician History of Present Illness: Awake,alert C/O buttock pain No c/o fever/ chills Afebrile WBC WNL - Current Medication List Current Medications: Active Medications Acetaminophen (Tylenol -) 650 mg PO Q6H PRN PRN Reason: FEVER Last Admin: 12/18/17 18:47 Dose: 650 mg Acetaminophen (Tylenol -) 650 mg PO Q4H PRN PRN Reason: PAIN 6-10 Last Admin: 12/18/17 13:25 Dose: 650 mg Albuterol Sulfate (Ventolin 0.083% Nebulizer Soln -) 1 amp NEB RTID [facility] Last Admin: 12/19/17 14:31 Dose: Not Given Amitriptyline HCl (Elavil -) 25 mg PO HS [facility] Last Admin: 12/18/17 21:49 Dose: 25 mg Atorvastatin Calcium (Lipitor -) 10 mg PO HS [facility] Last Admin: 12/18/17 21:49 Dose: 10 mg Cholecalciferol (Vitamin D3 -) 2,000 unit PO DAILY [facility] Last Admin: 12/19/17 09:10 Dose: 2,000 unit Cyanocobalamin (Vitamin B12 -) 1,000 mcg PO DAILY [facility] Last Admin: 12/19/17 09:11 Dose: 1,000 mcg Diltiazem HCl (Cardizem Cd -) 180 mg PO DAILY [facility] Last Admin: 12/19/17 09:10 Dose: 180 mg Heparin Sodium (Porcine) (Heparin -) 5,000 unit SQ BID [facility] Last Admin: 12/19/17 09:11 Dose: 5,000 unit Vancomycin HCl 1,250 mg/ (Dextrose) 250 mls @ 125 mls/hr IVPB BID@0300,1500 [facility] PRN Reason: Protocol Last Admin: 12/19/17 14:09 Dose: 125 mls/hr Ondansetron HCl (Zofran Injection) 4 mg IVPUSH Q4H PRN PRN Reason: NAUSEA AND/OR VOMITING Last Admin: 12/15/17 16:43 Dose: 4 mg Pantoprazole Sodium (Protonix -) 40 mg PO BID [facility] Last Admin: 12/19/17 09:10 Dose: 40 mg Prednisolone Acetate (Pred Forte 1% -) 1 drop OU Q6H PRN PRN Reason: eye irritation as per pt Last Admin: 12/19/17 09:12 Dose: 1 drop Roflumilast (Daliresp -) 500 mcg PO DAILY [facility] Last Admin: 12/19/17 09:20 Dose: 500 mcg Sucralfate (Carafate -) 1 gm PO QID [facility] Last Admin: 12/19/17 14:09 Dose: 1 gm Tiotropium [place] (Spiriva -) 1 puff IH DAILY [facility] Last Admin: 12/19/17 09:11 Dose: 1 puff - Objective Vital Signs: Vital Signs Temperature 98.1 F 12/19/17 13:06 Pulse Rate 107 H 12/19/17 13:06 Respiratory Rate 19 12/19/17 13:06 Blood Pressure 123/82 12/19/17 13:06 O2 Sat by Pulse Oximetry (%) 96 12/19/17 09:00 Constitutional: Yes: No Distress, Obese Eyes: Yes: Conjunctiva Clear Cardiovascular: Yes: Regular Rate and Rhythm, S1, S2 Respiratory: Yes: CTA Bilaterally Gastrointestinal: Yes: Normal Bowel Sounds, Soft, Abdomen, Obese. No: Tenderness Edema: No Integumentary: Yes: Other (+ 3cm area induration L buttock. No fluctuance) Labs: CBC, BMP 12/16/17 07:30 12/16/17 07:30 Assessment/Plan L buttock soft tissue abscess MRSA Sulfa allergy Susceptibilities reviewed. No good oral option: Pt sulfa allergic Isolate (R) clinda (I) levaquin Pt on elavil ( linezolid interaction) Continue vancomycin
[2017-12-19] MEDS: AMITRIPTYLINE HCL 25 MG TABLET (FP) PO SCH (21:43)
[2017-12-19] MEDS: ATORVASTATIN CA 10 MG TABLET (FP) PO SCH (21:43)
[2017-12-19] MEDS: ACETAMINOPHEN 325 MG TABLET (FP) PO PRN (21:43)
[2017-12-19] MEDS ORDERED: PT OWN MED DRAWER 7, Y5N ONE (22:18)
[2017-12-20] MEDS ORDERED: PT OWN MED DRAWER 7, Y5N ONE ×5 (02:10→15:11)
[2017-12-20] MEDS: VANCOMYCIN 1,250 MG in DEXTROSE 5%-WATER - 250 ML IVPB SCH ×2 (02:30→15:00)
[2017-12-20] MEDS: CHOLECALCIFEROL (VITAMIN D3) 1,000 UNIT TABLET (FP) PO SCH (10:03)
[2017-12-20] MEDS: TIOTROPIUM BROMIDE 18 MCG CAPSULES IH SCH (10:04)
[2017-12-20] MEDS: HEPARIN NA (PORCINE) 5,000 UNITS/ML 1ML VIAL SQ SCH ×2 (10:04→21:30)
[2017-12-20] MEDS: CYANOCOBALAMIN 1,000 MCG TABLET (FP) PO SCH (10:04)
[2017-12-20] MEDS: ROFLUMILAST 500 MCG TABLET PO SCH (10:04)
[2017-12-20] MEDS: SUCRALFATE 1 GM TABLET (FP) PO SCH ×4 (10:04→21:30)
[2017-12-20] MEDS: PANTOPRAZOLE 40 MG TABLET (FP) PO SCH ×2 (10:04→21:30)
--- NOTE | 2017-12-20 12:12 | PN ---
Progress Note, Physician Chief Complaint: no c/o pain has swelling in left leg - Current Medication List Current Medications: Active Medications Acetaminophen (Tylenol -) 650 mg PO Q6H PRN PRN Reason: FEVER Last Admin: 12/19/17 21:43 Dose: 650 mg Acetaminophen (Tylenol -) 650 mg PO Q4H PRN PRN Reason: PAIN 6-10 Last Admin: 12/18/17 13:25 Dose: 650 mg Amitriptyline HCl (Elavil -) 25 mg PO HS [facility] Last Admin: 12/19/17 21:43 Dose: 25 mg Atorvastatin Calcium (Lipitor -) 10 mg PO HS [facility] Last Admin: 12/19/17 21:43 Dose: 10 mg Cholecalciferol (Vitamin D3 -) 2,000 unit PO DAILY [facility] Last Admin: 12/20/17 10:03 Dose: 2,000 unit Cyanocobalamin (Vitamin B12 -) 1,000 mcg PO DAILY [facility] Last Admin: 12/20/17 10:04 Dose: 1,000 mcg Diltiazem HCl (Cardizem Cd -) 180 mg PO DAILY [facility] Last Admin: 12/20/17 10:04 Dose: 180 mg Heparin Sodium (Porcine) (Heparin -) 5,000 unit SQ BID [facility] Last Admin: 12/20/17 10:04 Dose: 5,000 unit Vancomycin HCl 1,250 mg/ (Dextrose) 250 mls @ 125 mls/hr IVPB BID@0300,1500 [facility] PRN Reason: Protocol Last Admin: 12/20/17 02:30 Dose: 125 mls/hr Ondansetron HCl (Zofran Injection) 4 mg IVPUSH Q4H PRN PRN Reason: NAUSEA AND/OR VOMITING Last Admin: 12/15/17 16:43 Dose: 4 mg Pantoprazole Sodium (Protonix -) 40 mg PO BID [facility] Last Admin: 12/20/17 10:04 Dose: 40 mg Prednisolone Acetate (Pred Forte 1% -) 1 drop OU Q6H PRN PRN Reason: eye irritation as per pt Last Admin: 12/19/17 17:30 Dose: 1 drop Roflumilast (Daliresp -) 500 mcg PO DAILY [facility] Last Admin: 12/20/17 10:04 Dose: 500 mcg Sucralfate (Carafate -) 1 gm PO QID [facility] Last Admin: 12/20/17 10:04 Dose: 1 gm Tiotropium [place] (Spiriva -) 1 puff IH DAILY [facility] Last Admin: 12/20/17 10:04 Dose: 1 puff - Objective Vital Signs: Vital Signs Temperature 97.3 F L 12/20/17 10:00 Pulse Rate 93 H 12/20/17 10:00 Respiratory Rate 18 12/20/17 10:00 Blood Pressure 124/81 12/20/17 10:00 O2 Sat by Pulse Oximetry (%) 97 12/19/17 21:00 Constitutional: Yes: No Distress Cardiovascular: Yes: Regular Rate and Rhythm Respiratory: Yes: Diminished Gastrointestinal: Yes: Normal Bowel Sounds, Soft. No: Tenderness Genitourinary: Yes: Other (left buttock -- decreased induration , decreased tenderness) Edema: LLE: 1+ Labs: CBC, BMP 12/16/17 07:30 12/16/17 07:30 Problem List - Problems (1) Abscess of left buttock Code(s): L02.31 - CUTANEOUS ABSCESS OF BUTTOCK (2) Anxiety Code(s): F41.9 - ANXIETY DISORDER, UNSPECIFIED (3) MRSA (methicillin resistant staph aureus) culture positive Code(s): Z22.322 - CARRIER OR SUSPECTED CARRIER OF METHICILLIN RESIS STAPH Assessment/Plan PLAN MRSA- Resistant to Clindamycin continue with Vanco-- last dose tomorrow-- spoke with DR Perkins check sono legs r/o DVT
[2017-12-20] MEDS: ACETAMINOPHEN 325 MG TABLET (FP) PO PRN (15:12)
[2017-12-20] MEDS: ATORVASTATIN CA 10 MG TABLET (FP) PO SCH (21:30)
[2017-12-20] MEDS: AMITRIPTYLINE HCL 25 MG TABLET (FP) PO SCH (21:30)
[2017-12-21] MEDS: VANCOMYCIN 1,250 MG in DEXTROSE 5%-WATER - 250 ML IVPB SCH ×2 (02:47→14:50)
[2017-12-21] MEDS ORDERED: PT OWN MED DRAWER 7, Y5N ONE ×3 (09:21→18:24)
[2017-12-21] MEDS: TIOTROPIUM BROMIDE 18 MCG CAPSULES IH SCH (09:26)
[2017-12-21] MEDS: CHOLECALCIFEROL (VITAMIN D3) 1,000 UNIT TABLET (FP) PO SCH (09:26)
[2017-12-21] MEDS: PANTOPRAZOLE 40 MG TABLET (FP) PO SCH (09:26)
[2017-12-21] MEDS: SUCRALFATE 1 GM TABLET (FP) PO SCH ×3 (09:26→18:32)
[2017-12-21] MEDS: ROFLUMILAST 500 MCG TABLET PO SCH (09:27)
[2017-12-21] MEDS: CYANOCOBALAMIN 1,000 MCG TABLET (FP) PO SCH (09:28)
[2017-12-21] MEDS: HEPARIN NA (PORCINE) 5,000 UNITS/ML 1ML VIAL SQ SCH (09:28)
[2017-12-21] MEDS ORDERED: ASPIRIN 81 MG CHEWABLE TABLETS PO SCH (10:00)
--- NOTE | 2017-12-21 11:38 | DS ---
Physical Examination Vital Signs: Vital Signs Temperature 97.4 F L 12/21/17 06:00 Pulse Rate 86 12/21/17 06:00 Respiratory Rate 20 12/21/17 06:00 Blood Pressure 133/77 12/21/17 06:00 O2 Sat by Pulse Oximetry (%) 97 12/20/17 21:00 Constitutional: Yes: No Distress, Calm Cardiovascular: Yes: Regular Rate and Rhythm Respiratory: Yes: Diminished Gastrointestinal: Yes: Normal Bowel Sounds, Soft, Abdomen, Obese Edema: No Integumentary: Yes: Other (left buttock-- healed wound-- induration less, less tender) Labs: CBC, BMP 12/16/17 07:30 12/16/17 07:30 Discharge Summary Reason For Visit: CELLULITIS OF LEFT BUTTOCK Current Active Problems Abscess of left buttock (Acute) Anxiety (Acute) Cellulitis of left buttock (Acute) MRSA (methicillin resistant staph aureus) culture positive (Acute) MRSA cellulitis (Acute) Hospital Course: left buttock abscess-- failed outpt antibiotics Has MRSA in wound Seen by ID and Surgery-- abscess squeezed out pt better after iv vanco stable for dc home she completed antibiotics Condition: Improved - Instructions Diet, Activity, Other Instructions: Warm soaks 3 times a day, to left buttock x 20 minutes. Referrals: Cristal Ludwig MD [Primary Care Provider] - Disposition: HOME - Home Medications Comprehensive Discharge Medication List: Ambulatory Orders Atorvastatin Ca [Lipitor] 10 mg PO HS 06/24/15 Roflumilast [Daliresp] 500 mcg PO DAILY 06/24/15 Cyanocobalamin [Vitamin B12 -] 1,000 mcg PO DAILY tablet 03/28/16 Amitriptyline HCl [Elavil -] 25 mg PO HS 09/23/16 [place]-3 Fatty Acids [Fish Oil] 300 mg PO DAILY 11/23/16 clonazePAM [Klonopin -] 0.5 mg PO PRN PRN 11/23/16 Cholecalciferol (Vitamin D3) [Vitamin D3 -] 2,000 unit PO DAILY 04/16/17 Acetaminophen [Tylenol .Regular Strength -] 650 mg PO Q4H PRN tablet 06/30/17 Albuterol 0.083% Nebulizer Grace [Ventolin 0.083% Nebulizer Soln -] 1 amp NEB TIDR #30 amp 06/30/17 Albuterol Sulfate Inhaler - [Ventolin HFA Inhaler -] 2 puff IH Q4H PRN #1 inhaler 06/30/17 Fluticasone/Vilanterol [Breo Ellipta 200-25 Mcg INH] 1 each IH DAILY 10/17/17 Diltiazem Cd [Cardizem Cd -] 180 mg PO DAILY 10/18/17 Tiotropium [place] [Spiriva] 1 inh PO DAILY 10/18/17 Prednisone 10 mg PO DAILY #30 tablet 12/03/17 Prednisolone 1% Ophthalmic [Pred Forte 1% -] 1 drop OU QID PRN 12/15/17 Pantoprazole Sodium [Protonix] 40 mg PO BID 30 Days #60 tablet. 12/18/17 Sucralfate [Carafate -] 1 gm PO QID 30 Days #120 tablet 12/18/17 oxyCODONE HCL [Roxicodone -] 5 mg PO BID #10 tablet MDD 2 12/18/17
[2017-12-21] MEDS: ACETAMINOPHEN 325 MG TABLET (FP) PO PRN (13:08)
[2017-12-21] MEDS: prednisoLONE ACETATE 1% OPHTH SUSP 5 ML BOTTLE OU PRN (13:08)
[2017-12-21 13:23] VITALS: BP 110/71; PULSE 93; TEMP 98.4
== END 2017-12-21 19:00 | disposition home or self-care (01) | DRG 603 ==
LOC: JER 11:10 → JERBED 15:34 → J5S 16:58
PROVIDERS: ADMIT Internal Medicine; ATTEND Internal Medicine
DX: L02.31 Cutaneous abscess of buttock (principal); L03.317 Cellulitis of buttock; J44.9 Chronic obstructive pulmonary disease, unspecified; F41.8 Other specified anxiety disorders; I10 Essential (primary) hypertension; E78.5 Hyperlipidemia, unspecified; K21.9 Gastro-esophageal reflux disease without esophagitis; Z22.322 Carrier or suspected carrier of Methicillin resistant Staphylococcus aureus
CPT/HCPCS: 36415; 80053; 82962; 85025; 85610; 86140; 87070; 87186; 87205; 93970-TC; 94640; 96365; 99282-25; J1644

== ENCOUNTER 2018-04-08 21:30 | Emergency (ER) | payer OTHER, BC ==
[2018-04-08 21:36] VITALS: BMI 30.4
[2018-04-08] MEDS ORDERED: ALBUTEROL SO4 2.5/IPRATROPIUM 0.5 INH SOL 3 ML VIAL.NEB. NEB ONE ×2 (22:03→22:28)
[2018-04-08] MEDS: ALBUTEROL SO4 0.083% IH SOL 2.5 MG/3 ML VIAL.NEB. NEB SCH ×4 (22:15→23:05)
[2018-04-08] MEDS: predniSONE 20 MG TABLET (UD) PO STA ×2 (22:30→23:00)
[2018-04-08] MEDS ORDERED: ALBUTEROL SO4 0.083% IH SOL 2.5 MG/3 ML VIAL.NEB. NEB ONE (22:45)
[2018-04-08] MEDS ORDERED: predniSONE 10 MG TABLET (UD) ONE (22:45)
[2018-04-08] MEDS ORDERED: predniSONE 20 MG TABLET (UD) ONE (22:45)
--- NOTE | 2018-04-08 23:36 | PDOC ---
History of Present Illness - General Chief Complaint: Shortness of Breath Stated Complaint: SHORTNESS OF BREATH, WHEEZING Time Seen by Provider: 04/08/18 21:47 History Source: Patient Exam Limitations: No Limitations - History of Present Illness Initial Comments: 57 y/o female presenting to [facility] via private auto complaining of worsening shortness of breath for the past two days. Symptoms began yesterday and have progressively worsened. She has been using her PRN albuterol inhaler every 3-4 hours without relief. Self-administered PO 50mg prednisone once yesterday and once today. Further reports she experienced a COPD exacerbation in early March ; she did not seek medical care but elected to self-administer a multi-day prednisone taper ending on 02 Apr 2018. Denies recent illness, fevers, or chills. Lives with smoker who smokes inside of the apartment. Was hospitalized for similar symptoms in November 2017. Has not returned to PCP Dr. Ludwig since December. Additionally reports but not complaining of epigastric tenderness, acute on chronic without change tonight, awaiting GI workup for likely PUD. Past History - Past Medical History Allergies/Adverse Reactions: Allergies Allergy/AdvReac Type Severity Reaction Status Date / Time Penicillins Allergy Hives Verified 04/08/18 21:36 Sulfa (Sulfonamide Allergy Hives Verified 04/08/18 21:36 Antibiotics) [Sulfa(Sulfonamide Antibiotics)] Home Medications: Ambulatory Orders Atorvastatin Ca [Lipitor] 10 mg PO HS 06/24/15 Roflumilast [Daliresp] 500 mcg PO DAILY 06/24/15 Cyanocobalamin [Vitamin B12 -] 1,000 mcg PO DAILY tablet 03/28/16 Amitriptyline HCl [Elavil -] 25 mg PO HS 09/23/16 [place]-3 Fatty Acids [Fish Oil] 300 mg PO DAILY 11/23/16 clonazePAM [Klonopin -] 0.5 mg PO PRN PRN 11/23/16 Cholecalciferol (Vitamin D3) [Vitamin D3 -] 2,000 unit PO DAILY 04/16/17 Acetaminophen [Tylenol .Regular Strength -] 650 mg PO Q4H PRN tablet 06/30/17 Albuterol 0.083% Nebulizer Grace [Ventolin 0.083% Nebulizer Soln -] 1 amp NEB TIDR #30 amp 06/30/17 Albuterol Sulfate Inhaler - [Ventolin HFA Inhaler -] 2 puff IH Q4H PRN #1 inhaler 06/30/17 Fluticasone/Vilanterol [Breo Ellipta 200-25 Mcg INH] 1 each IH DAILY 10/17/17 Diltiazem Cd [Cardizem Cd -] 180 mg PO DAILY 10/18/17 Tiotropium [place] [Spiriva] 1 inh PO DAILY 10/18/17 Prednisone 10 mg PO DAILY #30 tablet 12/03/17 Prednisolone 1% Ophthalmic [Pred Forte 1% -] 1 drop OU QID PRN 12/15/17 Pantoprazole Sodium [Protonix] 40 mg PO BID 30 Days #60 tablet. 12/18/17 Sucralfate [Carafate -] 1 gm PO QID 30 Days #120 tablet 12/18/17 oxyCODONE HCL [Roxicodone -] 5 mg PO BID #10 tablet MDD 2 12/18/17 Amitriptyline HCl [Elavil -] 10 mg PO DAILY #90 tablet 12/21/17 Bisacodyl [Dulcolax] 20 mg PO ONCE 1 Days #1 tablet. MDD 20 mg 04/05/18 Ondansetron HCl [Zofran] 4 mg PO ONCE 1 Days #1 tablet MDD 1 tab 04/05/18 [id number]/Sod Sulf,Bicarb,Cl/KCl [Golytely Solution] 4,000 ml PO ONCE 1 Days #1 soln.amarilis MDD 4,000 ml 04/05/18 Azithromycin 250 mg PO DAILY 4 Days #4 tablet 04/09/18 Anemia: No Asthma: Yes Cancer: No Cardiac Disorders: Yes (Tachycardia) CVA: No COPD: Yes CHF: No DVT: No Dementia: No Diabetes: Yes (BORDERLINE) GI Disorders: Yes (GERD) Disorders: No HTN: Yes Hypercholesterolemia: Yes Liver Disease: No Seizures: No Thyroid Disease: Yes (NODULES) - Surgical History Abdominal Surgery: Yes (POLYP REMOVED FROM UTERUS 09/06/13) Appendectomy: No Cardiac Surgery: No Cholecystectomy: No GI Surgery: Yes (umbilical hernia/wound vac) Lung Surgery: No Neurologic Surgery: No Orthopedic Surgery: Yes (BUNION REMOVAL RT FOOT 2013) - Immunization History Immunization Up to Date: Yes - Suicide/Smoking/Psychosocial Hx Smoking Status: Yes Smoking History: Never smoked Have you smoked in the past 12 months: No Number of Cigarettes Smoked Daily: 0 If you are a former smoker, when did you quit?: 2011 Information on smoking cessation initiated: No 'Breaking Loose' booklet given: 10/28/13 Hx Alcohol Use: No Drug/Substance Use Hx: No Substance Use Type: None Hx Substance Use Treatment: No Respiratory Specific PMHX - Complaint Specific PMHX Angina: No Bronchitis: Yes Pneumonia: No Pulmonary Embolus: No TB (Tuberculosis): No Review of Systems - Review of Systems Able to Perform ROS?: Yes Is the patient limited Wolof proficient: No Constitutional: No: Chills, Diaphoresis, Fever, Weakness HEENTM: No: Nose Congestion, Throat Pain Respiratory: Yes: Shortness of Breath, Wheezing. No: Cough, Orthopnea, Productive cough Cardiac (ROS): No: Chest Pain, Palpitations, Syncope ABD/GI: Yes: See HPI Neurological: No: Headache Hematologic/Lymphatic: No: Easy Bleeding, Easy Bruising *Physical Exam - Vital Signs Last Vital Signs Temp Pulse Resp BP Pulse Ox 97.6 F 130 H 16 125/81 97 04/08/18 21:33 04/08/18 21:33 04/08/18 21:33 04/08/18 21:33 04/08/18 21:33 - Physical Exam Comments: Constitutional: Well-developed, well-nourished female in mild distress. Found sitting upright on edge of bed. Alert and oriented x4. Answered all questions appropriately and completely. Respiratory: Pausing frequently to breath while speaking. No guppy breathing, retractions, or accessory muscle usage. Equal chest rise and fall. Moderate diffuse wheezing throughout all currie. No stridor or rhonchi. Cardiovascular: Tahycardic rate and regular rhythm. No murmur, rubs, clicks, or gallops. Peripheral pulses: Radial pulses full. Gastrointestinal: abdomen is subjectively tender in epigastrium without grimace , withdrawal, or rebound; otherwise non-tender and, non-distended. No pulsatile masses. No overlying skin lesions or obvious signs of trauma. : No R or L CVA tenderness. Neuro: Alert and oriented. Moving all four extremities spontaneously. Ambulating without assistance . Psych: Affect: appropriate. Mood: normal. Skin: Warm, dry, and intact. No bleeding, bruising, rashes, or other lesions. ED Treatment Course - LABORATORY CBC & Chemistry Diagram: 04/09/18 03:30 04/09/18 03:30 - Medications Given in the ED: ED Medications Discontinued Medications Generic Name Dose Route Start Last Admin Trade Name Francheska PRN Reason Stop Dose Admin Albuterol Sulfate 1 amp 04/08/18 22:15 04/08/18 23:05 Ventolin 0.083% Nebulizer Soln - NEB 04/08/18 23:01 1 amp Q15M SANDEEP Administration Albuterol/Ipratropium 1 amp 04/08/18 22:03 04/08/18 22:05 Duoneb - NEB 04/08/18 22:04 1 amp ONCE ONE Administration Prednisone 50 mg 04/08/18 22:14 04/08/18 23:00 Deltasone - PO 04/08/18 22:15 Not Given ONCE STA Medical Decision Making - Medical Decision Making *Reviewed nursing notes and prior visit documentation. 57 y/o female complaining of difficulty breathing x2 days with known history of COPD. Afebrile. Vitals remarkable for tachycardia to 130. No hypoxia. Physical exam revealed mild to moderate diffuse expiratory wheezing throughout. Suspect symptoms mild COPD exacerbation. Differential to include bronchitis, pneumonia, and ACS (less likely). EKG: Sinus tachycardia with nonspecific T wave changes. Normal axis. Normal intervals. No ST segment elevation or depression. No hyperacute T waves. No pathologic Q waves. 23:12 Pt reassessed after receiving 1x Duoneb and 2x Albuterol nebs. Diffuse wheezing has resolved. Good aeration throughout. Refused PO prednisone; confirmed she self-administered 50mg at home today, prescription was a refill by Dr. Ludwig office in February 2018. Administered 500mg loading dose of azithromycin. Encouraged PO hydration for mild tachycardia (<110bpm). Pt observed ambulating without assistance to bathroom while laughing and chatting with members of staff. Respirations non-labored. CXR revealed poor inspiratory effort but not suggestive for acute cardiopulmonary process. Unchanged when compared to previous image from 25 Jun 2017. Discussed pt's clinical improve and plan to discharge home with outpatient PCP follow up and 4 day course of azythromycin. Pt states she does not need a refill on her albuterol or prednisone as she was called in a 90 day supply at the end of February. Pt expressed verbal understanding and agreement with plan. Pt found to be tachycardic to 108 while obtaining discharge vitals. Will cancel discharge order. CBC revealed leukocytosis to 14.3; likely secondary to outpatient steroid usage. CMP revealed hypokalemia to 3.2; likely secondary to albuterol treatments administered while in the department. VBG unremarkable for acidosis or alkalosis. 05:12 Pt observed sleeping comfortable without labored respirations. Non-tachycardic heart rate of 94. Oxygen saturation 95% on room air. Has not required nebulized treatment or supplemental oxygen in approx. six hours. Pt state she would like her IV lock removed and to be discharged home. Previous discharge plan remains appropriate. Pt discharged from the department without further incident. *DC/Admit/Observation/Transfer Diagnosis at time of Disposition: COPD exacerbation - Discharge Dispostion Disposition: HOME Condition at time of disposition: Good Decision to Admit order: No - Prescriptions Prescriptions: Azithromycin 250 mg PO DAILY 4 Days #4 tablet - Referrals Referrals: Cristal Ludwig MD [Staff Physician] - - Patient Instructions Printed Discharge Instructions: DI for Chronic Obstructive Pulmonary Disease Additional Instructions: Your chest x-ray is unchanged from your old ones, which is a good sign. It did not show anything that looked like pneumonia. Please continue to use your albuterol treatments as you need for shortness of breath. Continue taking your prednisone on the taper. You should take 50mg tomorrow (Monday), then three days at 40mg, then three days at 30mg, then three days at 20mg. I have sent a prescription for the Z-pack to [email or web address] in [place], [place]. Please take it as directed. 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 Come back to the emergency room if your symptoms worsen or you feel like your condition requires additional emergency care. - Post Discharge Activity
--- NOTE | 2018-04-08 23:47 | PDOC ---
Attending Attestation - Resident Resident Name: Tashi Camejo - ED Attending Attestation I have performed the following: I have examined & evaluated the patient, The case was reviewed & discussed with the resident, I agree w/resident's findings & plan, Exceptions are as noted - HPI HPI: 04/08/18 23:47 57 F with h/o HTN, HLD, COPD presenting to ED with SOB x 2 days. Pt states that she recently was treated for COPD exacerbation last month. She completed a prednisone taper and felt much better. However, over the past 2 days she began to feel SOB again. Denies F/C. States that she started taking prednisone again yesterday, 50mg daily. Pt endorses chest tightness but no chest pain. Denies leg swelling or recent travel. - Physicial Exam PE: 04/08/18 23:48 GENERAL: Awake, alert, and fully oriented, in no acute distress. HEAD: No signs of trauma EYES: PERRLA, EOMI, sclera anicteric, conjunctiva clear ENT: Auricles normal inspection, hearing grossly normal, nares patent, oropharynx clear without exudates. Moist mucosa NECK: Nontender, no stepoffs, Normal ROM, supple, no lymphadenopathy, JVD, or masses LUNGS: + Mild expiratory wheezes bilaterally HEART: Regular rate and rhythm, normal S1 and S2, no murmurs, rubs or gallops ABDOMEN: Soft, nontender, normoactive bowel sounds. No guarding, no rebound. No masses EXTREMITIES: Normal range of motion, no edema. No clubbing or cyanosis. No cords, erythema, or tenderness NEUROLOGICAL: Cranial nerves II through XII intact. 5/5 strength and sensation in all extremities, Normal speech, normal gait, normal cerebellar function SKIN: Warm, Dry, normal turgor, no rashes or lesions noted. - Medical Decision Making 04/08/18 23:49 57 F with SOB and chest tightness, likely COPD exacerbation. Wheezing on exam. Pt with nonischemic EKG. No clinical signs of DVT. Pt is tachycardic in ED but likely 2/2 COPD and nebulizer use. - CXR - Nebs, steroids, azithro - Reassess 04/09/18 01:02 Pt reassessed s/p nebs Lungs now completely clear Pt reports significant improvement in symptoms. Vitals rechecked - pt still mildly tachycardic to 110. Likely 2/2 dehydration as well as nebulizer treatments. Pt given pitcher of water. Will continue to monitor. 04/09/18 02:18 Pt with persistent tachycardia and tachypnea Will order labs and admit for COPD exacerbation Pt signed out to Dr. Verma at 2AM, pending labwork and admission for COPD.
[2018-04-08] MEDS ORDERED: AZITHROMYCIN 500 MG TABLET PO ONE (23:48)
[2018-04-08] MEDS ORDERED: AZITHROMYCIN 500 MG TABLET ONE (23:52)
[2018-04-09 04:07] LABS: BASO % 0.3 % (0-2.0); HEMATOCRIT 35.6 % (32.4-45.2); HEMOGLOBIN 11.3 GM/dL (10.7-15.3); LYMPH % 17.4 % (8-40); MCH 26.8 pg (25.7-33.7); MCHC 31.7 g/dl (32.0-36.0); MEAN CELL VOLUME 84.5 fl (80-96); MEAN PLT VOLUME 7.5 fl (7.5-11.1); NEUT % 74.3 % (42.8-82.8); PLATELET COUNT 314 K/MM3 (134-434); RBC 4.22 M/mm3 (3.60-5.2); RDW 15.6 % (11.6-15.6); WHITE BLOOD COUNT 14.3 K/mm3 (4.0-10.0)
[2018-04-09 04:21] LABS: VENOUS PC02 43.6 mmHg (38-52); VENOUS PH 7.34 (7.32-7.42); VENOUS PO2 31.6 mmHg (28-48)
[2018-04-09 04:30] LABS: ALBUMIN 3.4 g/dl (3.4-5.0); ANION GAP 12 (8-16); BLOOD UREA NITROGEN 13 mg/dL (7-18); CALCIUM 8.6 mg/dL (8.5-10.1); CHLORIDE 107 mmol/L (98-107); CO2 23 mmol/L (21-32); CREATININE 0.9 mg/dL (0.55-1.02); GLUCOSE,RANDOM 137 mg/dL (74-106); POTASSIUM 3.2 mmol/L (3.5-5.1); SGOT/AST 14 U/L (15-37); SGPT/ALT 20 U/L (12-78); SODIUM 142 mmol/L (136-145)
[2018-04-09 04:32] LABS: N-TERMINAL BNP 35.99 pg/ml (5-125)
[2018-04-09 04:34] LABS: ALK PHOS 79 U/L (45-117); BILIRUBIN,TOTAL 0.3 mg/dL (0.2-1.0); N-TERMINAL BNP 34.75 pg/ml (5-125); TOT PROT 6.1 g/dl (6.4-8.2)
[2018-04-09 05:43] VITALS: BP 96/75; PULSE 107; TEMP 98.2
--- NOTE | 2018-04-10 13:15 | EKG ---
Test Reason : Blood Pressure : / mmHG Vent. Rate : 118 BPM Atrial Rate : 118 BPM P-R Int : 132 ms QRS Dur : 084 ms QT Int : 316 ms P-R-T Axes : 064 027 043 degrees QTc Int : 442 ms SINUS TACHYCARDIA POSSIBLE LEFT ATRIAL ENLARGEMENT BORDERLINE ECG NO PREVIOUS ECGS AVAILABLE Confirmed by Agustin Moran MD ([id number]) on 04/10/2018 1:14:48 PM Referred By: ANKUR SOTO Confirmed By:Agustin Moran MD
== END 2018-04-09 05:40 | disposition home or self-care (01) ==
LOC: JER 21:30
PROC: 3E0F7GC Introduction of Other Therapeutic Substance into Respiratory Tract, Via Natural or Artificial Opening (ICD-10-PCS; principal; 2018-04-08)
PROC: 3E0F7GC Introduction of Other Therapeutic Substance into Respiratory Tract, Via Natural or Artificial Opening (ICD-10-PCS; 2018-04-08)
DX: J44.1 Chronic obstructive pulmonary disease with (acute) exacerbation (principal); J45.909 Unspecified asthma, uncomplicated; I10 Essential (primary) hypertension; E78.00 Pure hypercholesterolemia, unspecified; E11.9 Type 2 diabetes mellitus without complications
CPT/HCPCS: 36415; 71046-TC-FY; 80053; 82550; 82803; 83880; 84484; 85025; 93005; 93010; 94640; 99283-25; J7620

== ENCOUNTER 2018-04-16 08:43 | Day surgery (SDC) | payer OTHER, BC ==
[2018-04-16 09:13] VITALS: BMI 30.1
--- NOTE | 2018-04-16 12:11 | PROC ---
Endoscopy Procedure Endoscopy procedure completed. Please see scanned procedure report.
[2018-04-16 12:16] VITALS: TEMP 98.5
[2018-04-16 13:53] VITALS: BP 120/61; PULSE 82
--- NOTE | 2018-04-17 18:16 | PATH ---
Surgical Pathology Report Patient Name: DICK AVILA [facility]. Rec. #: [id number] /Age/Gender: 1960 (Age: 57) / F Account: [id number] Location: [facility]-ENDOSCOPY Taken: 04/16/2018 Received: 04/16/2018 Reported: 04/17/2018 Physicians: Nikolay Dillard M.D. Specimen(s) Received A: BX 2ND PORTION DUODENUM B: BX ANTRUM AND BODY Clinical History Peptic ulcer Postoperative diagnosis: Duodenal ulcer, gastric ulcer Final Diagnosis A. SECOND PORTION DUODENUM, BIOPSY: DUODENAL MUCOSA WITH TUBULAR ADENOMA. B. ANTRUM AND BODY, BIOPSY: GASTRIC MUCOSA WITH REACTIVE GASTROPATHY. IMMUNOSTAIN IS NEGATIVE FOR H. PYLORI ORGANISMS. Electronically Signed Caleb He M.D. Gross Description A. Received in formalin, labeled "biopsy second portion of duodenum" are 4 harry, irregular portions of soft tissue ranging from 0.2-0.3 cm. in greatest dimension. The specimens are submitted in toto in one cassette. B. Received in formalin, labeled "biopsy antrum and body" are 3 harry, irregular portions of soft tissue ranging from 0.2-0.3 cm. in greatest dimension. The specimens are submitted in toto in one cassette. No 04/16/201804/16/2018
== END 2018-04-16 13:40 | disposition home or self-care (01) ==
LOC: JASU-ENDO 08:43
PROVIDERS: ATTEND Internal Medicine Gastroenterology
PROC: 0DB68ZX Excision of Stomach, Via Natural or Artificial Opening Endoscopic, Diagnostic (ICD-10-PCS; 2018-04-16)
PROC: 0DB98ZX Excision of Duodenum, Via Natural or Artificial Opening Endoscopic, Diagnostic (ICD-10-PCS; principal; 2018-04-16 10:45)
DX: K26.9 Duodenal ulcer, unspecified as acute or chronic, without hemorrhage or perforation (principal); K25.9 Gastric ulcer, unspecified as acute or chronic, without hemorrhage or perforation
CPT/HCPCS: 88305-TC; 88342-TC

== ENCOUNTER 2018-05-09 16:32 | Inpatient (IN) | payer OTHER, BC ==
--- NOTE | 2018-05-09 16:38 | PDOC ---
Rapid Medical Evaluation Time Seen by Provider: 05/09/18 16:37 Medical Evaluation: Allergies Allergy/AdvReac Type Severity Reaction Status Date / Time Penicillins Allergy Hives Verified 04/08/18 21:36 Sulfa (Sulfonamide Allergy Hives Verified 04/08/18 21:36 Antibiotics) [Sulfa(Sulfonamide Antibiotics)] 05/09/18 16:37 I have performed a brief in-person evaluation of this patient. The patient presents with a chief complaint of:COPD flare, s/p recent pred taper , multiple admission, no intubations, not on oxygen. H/o HTN, HLD, "tachycardia " Pertinent physical exam findings:stable w/ diffuse wheezing I have ordered the following:duonebs,cxr,ekg,labs The patient will proceed to the ED for further evaluation. Discharge Disposition - Diagnosis COPD exacerbation - Referrals Referrals: Cristal Ludwig MD [Primary Care Provider] - - Patient Instructions - Post Discharge Activity
[2018-05-09] MEDS ORDERED: ALBUTEROL SO4 2.5/IPRATROPIUM 0.5 INH SOL 3 ML VIAL.NEB. NEB ONE ×5 (16:52→19:24)
--- NOTE | 2018-05-09 17:26 | PDOC ---
History of Present Illness - History of Present Illness Initial Comments: 05/09/18 17:25 57 year old man with history of HTN, HLD, COPD with 1 week of shortness of breath that was unrelieved with self administration and taper of prednisone. The patient feels a "gurgling" in her chest when she breathes and states she feels weak enough that she wants to stay in the hospital for approx 2 days. The patient has already received a duoneb treatment in the ED but still complains of shortness of breath. She denies recent fever, productive cough, chest pain, abdominal pain or headache. She has no other complaints at bedside. PMHX: as in HPI Meds: see below Allergies: penicillin, sulfa Tob: quit 3 years ago Etoh: none Rec drugs: none PCP:Oziel <Leatha Marks - Last Filed: 05/09/18 20:00> <Toby Welsh - Last Filed: 05/10/18 00:09> - General Chief Complaint: Shortness of Breath Stated Complaint: SOB Time Seen by Provider: 05/09/18 16:37 Past History - Past Medical History Anemia: No Asthma: Yes Cancer: No Cardiac Disorders: Yes (Tachycardia) CVA: No COPD: Yes CHF: No DVT: No Dementia: No Diabetes: Yes (BORDERLINE) GI Disorders: Yes (GERD) Disorders: No HTN: Yes Hypercholesterolemia: Yes Liver Disease: No Seizures: No Thyroid Disease: Yes (NODULES) - Surgical History Abdominal Surgery: Yes (POLYP REMOVED FROM UTERUS 09/06/13) Appendectomy: No Cardiac Surgery: No Cholecystectomy: No GI Surgery: Yes (umbilical hernia/wound vac) Lung Surgery: No Neurologic Surgery: No Orthopedic Surgery: Yes (BUNION REMOVAL RT FOOT 2014) - Immunization History Immunization Up to Date: Yes - Suicide/Smoking/Psychosocial Hx Smoking Status: Yes Smoking History: Never smoked Have you smoked in the past 12 months: No Number of Cigarettes Smoked Daily: 0 If you are a former smoker, when did you quit?: 2011 'Breaking Loose' booklet given: 10/28/13 Hx Alcohol Use: No Drug/Substance Use Hx: No Substance Use Type: None Hx Substance Use Treatment: No <Leatha Marks - Last Filed: 05/09/18 20:00> <Toby Welsh - Last Filed: 05/10/18 00:09> - Past Medical History Allergies/Adverse Reactions: Allergies Allergy/AdvReac Type Severity Reaction Status Date / Time Penicillins Allergy Hives Verified 05/09/18 16:39 Sulfa (Sulfonamide Allergy Hives Verified 05/09/18 16:39 Antibiotics) [Sulfa(Sulfonamide Antibiotics)] Home Medications: Ambulatory Orders Atorvastatin Ca [Lipitor] 10 mg PO HS 06/24/15 Roflumilast [Daliresp] 500 mcg PO DAILY 06/24/15 Cyanocobalamin [Vitamin B12 -] 1,000 mcg PO DAILY tablet 03/28/16 Amitriptyline HCl [Elavil -] 35 mg PO HS 09/23/16 [place]-3 Fatty Acids [Fish Oil] 300 mg PO DAILY 11/23/16 clonazePAM [Klonopin -] 0.5 mg PO PRN PRN 11/23/16 Cholecalciferol (Vitamin D3) [Vitamin D3 -] 2,000 unit PO DAILY 04/16/17 Albuterol 0.083% Nebulizer Grace [Ventolin 0.083% Nebulizer Soln -] 1 amp NEB TIDR #30 amp 06/30/17 Albuterol Sulfate Inhaler - [Ventolin HFA Inhaler -] 2 puff IH Q4H PRN #1 inhaler 06/30/17 Fluticasone/Vilanterol [Breo Ellipta 200-25 Mcg INH] 1 each IH DAILY 10/17/17 Diltiazem Cd [Cardizem Cd -] 180 mg PO DAILY 10/18/17 Tiotropium [place] [Spiriva] 1 inh PO DAILY 10/18/17 Aspirin [ASA -] 81 mg PO DAILY 04/16/18 Cyclosporine [Restasis] 1 each OP BID 04/16/18 Ketorolac Tromethamine [Acular] 5 ml OP BID 04/16/18 Pantoprazole Sodium [Protonix] 40 mg PO BID 30 Days #60 tablet. MDD 2 tabs Dicyclomine HCl [Bentyl -] 20 mg PO PRN 05/09/18 Review of Systems - Review of Systems Able to Perform ROS?: Yes Is the patient limited Yi proficient: No Constitutional: Yes: Weakness. No: Chills, Diaphoresis, Fever HEENTM: No: Nose Congestion, Throat Pain Respiratory: Yes: Shortness of Breath, Wheezing. No: Cough, Orthopnea Cardiac (ROS): No: Chest Pain, Lightheadedness, Palpitations, Chest Tightness ABD/GI: No: Constipated, Diarrhea, Nausea, Vomiting Integumentary: No: Sweating Neurological: No: Headache, Numbness, Tingling <Leatha Marks - Last Filed: 05/09/18 20:00> *Physical Exam - Vital Signs Last Vital Signs Temp Pulse Resp BP Pulse Ox 98.2 F 100 H 20 100/66 97 05/09/18 16:37 05/09/18 16:37 05/09/18 16:37 05/09/18 16:37 05/09/18 16:37 - Physical Exam Comments: 05/09/18 17:50 GENERAL: Awake, alert, and fully oriented, in no acute distress HEAD: No signs of trauma, normocephalic, atraumatic EYES: EOMI, sclera anicteric, conjunctiva clear ENT: oropharynx clear without exudates. Moist mucosa NECK: Normal ROM, supple, no lymphadenopathy, JVD, or masses LUNGS: No distress, speaks full sentences, inspiratory and expiratory wheeze throughout, minimal work of breathing HEART: Regular rate and rhythm, normal S1 and S2, no murmurs, rubs or gallops, peripheral pulses normal and equal bilaterally. EXTREMITIES : Normal inspection, Normal range of motion, no edema. No clubbing or cyanosis. NEUROLOGICAL: Normal speech, normal gait, no focal sensorimotor deficits SKIN: Warm, Dry, normal turgor, no rashes or lesions noted <Leatha Marks - Last Filed: 05/09/18 20:00> - Vital Signs Last Vital Signs Temp Pulse Resp BP Pulse Ox 98.2 F 96 H 22 106/75 96 05/09/18 21:35 05/09/18 21:35 05/09/18 21:35 05/09/18 21:35 05/09/18 21:35 <Toby Welsh - Last Filed: 05/10/18 00:09> ED Treatment Course - LABORATORY CBC & Chemistry Diagram: 05/09/18 17:17 05/09/18 17:17 - Medications Given in the ED: ED Medications Discontinued Medications Generic Name Dose Route Start Last Admin Trade Name Freq PRN Reason Stop Dose Admin Albuterol/Ipratropium 1 amp 05/09/18 16:52 05/09/18 16:58 Duoneb - NEB 05/09/18 16:53 1 amp ONCE ONE Administration <Leatha Marks - Last Filed: 05/09/18 20:00> - LABORATORY CBC & Chemistry Diagram: 05/09/18 17:17 05/09/18 17:17 - ADDITIONAL ORDERS Additional order review: Laboratory Results 05/09/18 17:17 Sodium 143 Potassium 3.8 Chloride 108 H Carbon Dioxide 24 Anion Gap 11 BUN 17 Creatinine 0.8 Creat Clearance w eGFR > 60 Random Glucose 109 H Calcium 9.5 Total Bilirubin 0.6 AST 6 L ALT 17 Alkaline Phosphatase 92 Creatine Kinase 60 Troponin I < 0.02 Total Protein 6.5 Albumin 3.7 05/09/18 17:17 RBC 4.44 MCV 82.0 MCHC 31.9 L RDW 16.4 H MPV 7.2 L Neutrophils % 59.1 D Lymphocytes % 31.4 D Monocytes % 8.1 Eosinophils % 0.7 D Basophils % 0.7 - Medications Given in the ED: ED Medications Discontinued Medications Generic Name Dose Route Start Last Admin Trade Name Freq PRN Reason Stop Dose Admin Albuterol/Ipratropium 1 amp 05/09/18 16:52 05/09/18 16:58 Duoneb - NEB 05/09/18 16:53 1 amp ONCE ONE Administration Albuterol/Ipratropium 1 amp 05/09/18 17:38 05/09/18 18:22 Duoneb - NEB 05/09/18 17:39 1 amp ONCE ONE Administration Albuterol/Ipratropium 1 amp 05/09/18 19:15 05/09/18 19:33 Duoneb - NEB 05/09/18 19:16 1 amp ONCE ONE Administration Magnesium Sulfate 2 gm 05/09/18 19:16 05/09/18 19:33 Magnesium Sulfate IVPB 05/09/18 19:17 2 gm ONCE ONE Administration Methylprednisolone Sodium Succinate 125 mg 05/09/18 17:39 05/09/18 18:22 Solu-Medrol - IVPUSH 05/09/18 17:40 125 mg ONCE ONE Administration <Toby Welsh - Last Filed: 05/10/18 00:09> Medical Decision Making - Medical Decision Making 05/09/18 17:49 57 year old man with history of HTN, HLD, COPD with 1 week of shortness of breath that was unrelieved with self administration and taper of prednisone. The patient feels a "gurgling" in her chest when she breathes and states she feels weak enough that she wants to stay in the hospital for approx 2 days. The patient has already received a duoneb treatment in the ED but still complains of shortness of breath. DDX including but not limited to: COPD exacerbation vs ACS vs PNA vs bronchitis vs PE W/U: - cbc, cmp, cardiac profile - CXR TX: - solumedrol - duoneb ED Course: Pt assessed after 1st duoneb treatment. Inspiratory and expiratory wheeze with minimal work of breathing 05/09/18 19:01 Pt reassessed after second duoneb treatment. Eating at bedside. No distress. Improved lung auscultation. Very mild inspiratory and expiratory wheeze. 3rd duoneb ordered. Mg 2gm ordered 05/09/18 20:00 Pt signed out to Dr. Bowman <Leatha Marks - Last Filed: 05/09/18 20:00> *DC/Admit/Observation/Transfer <Leatha Marks - Last Filed: 05/09/18 20:00> - Discharge Dispostion Decision to Admit order: Yes <Toby Welsh - Last Filed: 05/10/18 00:09> Diagnosis at time of Disposition: Acute exacerbation of chronic obstructive pulmonary disease (COPD) - Discharge Dispostion Condition at time of disposition: Fair - Referrals Referrals: Cristal Ludwig MD [Primary Care Provider] - - Patient Instructions - Post Discharge Activity
[2018-05-09 17:28] LABS: BASO % 0.7 % (0-2.0); EOS % 0.7 % (0-4.5); HEMATOCRIT 36.4 % (32.4-45.2); HEMOGLOBIN 11.6 GM/dL (10.7-15.3); LYMPH % 31.4 % (8-40); MCH 26.1 pg (25.7-33.7); MCHC 31.9 g/dl (32.0-36.0); MEAN PLT VOLUME 7.2 fl (7.5-11.1); MONO % 8.1 % (3.8-10.2); NEUT % 59.1 % (42.8-82.8); PLATELET COUNT 390 K/MM3 (134-434); RBC 4.44 M/mm3 (3.60-5.2); RDW 16.4 % (11.6-15.6); WHITE BLOOD COUNT 10.7 K/mm3 (4.0-10.0)
[2018-05-09] MEDS ORDERED: methylPREDNISolone NA SUCC 125 MG/2 ML VIAL IVPUSH ONE (17:39)
[2018-05-09] MEDS ORDERED: methylPREDNISolone NA SUCC 125 MG/2 ML VIAL ONE (17:55)
[2018-05-09 17:57] LABS: ALBUMIN 3.7 g/dl (3.4-5.0); ANION GAP 11 MMOL/L (8-16); BLOOD UREA NITROGEN 17 mg/dL (7-18); CALCIUM 9.5 mg/dL (8.5-10.1); CHLORIDE 108 mmol/L (98-107); CO2 24 mmol/L (21-32); CREATININE 0.8 mg/dL (0.55-1.3); GLUCOSE,RANDOM 109 mg/dL (74-106); POTASSIUM 3.8 mmol/L (3.5-5.1); SGOT/AST 6 U/L (15-37); SGPT/ALT 17 U/L (13-61); SODIUM 143 mmol/L (136-145)
[2018-05-09 18:01] LABS: ALK PHOS 92 U/L (45-117); BILIRUBIN,TOTAL 0.6 mg/dL (0.2-1); TOT PROT 6.5 g/dl (6.4-8.2)
--- NOTE | 2018-05-09 19:04 | PDOC ---
Attending Attestation - Resident Resident Name: Leatha Marks - ED Attending Attestation I have performed the following: I have examined & evaluated the patient, The case was reviewed & discussed with the resident, I agree w/resident's findings & plan, Exceptions are as noted - HPI HPI: 05/10/18 00:01 57-year-old female with history of hypertension, COPD and hyperlipidemia presents to the ER with worsening shortness of breath with dry nonproductive cough and audible wheezing for the past week which has not responded to a self administered prednisone taper. Patient denies fever chills/nausea vomiting or diarrhea. There is no history travel or sick contacts. - Physicial Exam PE: 05/10/18 00:02 Patient is awake and alert, mildly dyspneic, well-nourished, in mild distress. Normocephalic, atraumatic PERRLA, EOMI Neck is supple; there are no bruits Diffuse expiratory wheezing bilaterally with prolonged expiratory phase RRR No lower extremity edema Awake and alert, moving all extremity symmetrically - Medical Decision Making 05/10/18 00:06 57-year-old female with history of hypertension, hyperlipidemia and COPD presents with signs and symptoms of acute COPD exacerbation. Patient is received Combivent therapy, Solu-Medrol magnesium sulfate with minimal improvement. Oxygen saturation room air is 96%, however patient is noted to have audible wheezing that does not require stethoscope. Will admit for further care.
[2018-05-09] MEDS ORDERED: MAGNESIUM SULF 50% (8.12 MEQ/2 ML-1 GM VIAL) IVPB ONE (19:16)
[2018-05-09] MEDS ORDERED: MAGNESIUM 1GM/D5W - 2 GM/200 ML IVPB IVPB ONE (19:25)
--- NOTE | 2018-05-10 00:39 | HP ---
Admitting History and Physical - Primary Care Physician PCP: Cristal Ludwig - Admission Chief Complaint: SOB, Wheezing History of Present Illness: This is a 57 y/o woman with PMhx of: COPD, HTN, HLD, Anxiety, MRSA- L- Axillary Abscess (2016, required I&D). Who presents to the ED with increased SOB, Wheezing x 1 week. Patient reports that her breathing as worsened over the last week after completing her prednisone taper. Patient denies fever, chills, dizziness, WALLS, CP, palpitations, N/V/D, constipation, dysuria. Patient endorses intermittent pain to her right torso when she twists or moves sideways. History Source: Patient, Medical Record Limitations to Obtaining History: No Limitations - Past Medical History Cardiovascular: Yes: HTN, Hyperlipdemia Pulmonary: Yes: COPD Gastrointestinal: Yes: Other (HERNIA REPAIR WITH COMPLICATIONS AND POST OP SBO) ...LMP: 08/04/13 Heme/Onc: Yes: B12 Deficiency Psych: Yes: Anxiety Musculoskeletal: Yes: Osteoarthritis, Other (KNEE SURGERY) Rheumatology: Yes: Other (OSTEOARTHRITIS) - Past Surgical History Past Surgical History: Yes: Hernia Repair - Smoking History Smoking history: Former smoker Have you smoked in the past 12 months: No Aproximately how many cigarettes per day: 0 If you are a former smoker, when did you quit?: 2011 - Alcohol/Substance Use Hx Alcohol Use: No History of Substance Use: reports: None - Social History ADL: Independent History of Recent Travel: No Home Medications - Allergies Allergies/Adverse Reactions: Allergies Allergy/AdvReac Type Severity Reaction Status Date / Time Penicillins Allergy Hives Verified 05/09/18 16:39 Sulfa (Sulfonamide Allergy Hives Verified 05/09/18 16:39 Antibiotics) [Sulfa(Sulfonamide Antibiotics)] - Home Medications Home Medications: Ambulatory Orders Atorvastatin Ca [Lipitor] 10 mg PO HS 06/24/15 Roflumilast [Daliresp] 500 mcg PO DAILY 06/24/15 Cyanocobalamin [Vitamin B12 -] 1,000 mcg PO DAILY tablet 03/28/16 Amitriptyline HCl [Elavil -] 35 mg PO HS 09/23/16 [place]-3 Fatty Acids [Fish Oil] 300 mg PO DAILY 11/23/16 clonazePAM [Klonopin -] 0.5 mg PO PRN PRN 11/23/16 Cholecalciferol (Vitamin D3) [Vitamin D3 -] 2,000 unit PO DAILY 04/16/17 Albuterol 0.083% Nebulizer Grace [Ventolin 0.083% Nebulizer Soln -] 1 amp NEB TIDR #30 amp 06/30/17 Albuterol Sulfate Inhaler - [Ventolin HFA Inhaler -] 2 puff IH Q4H PRN #1 inhaler 06/30/17 Fluticasone/Vilanterol [Breo Ellipta 200-25 Mcg INH] 1 each IH DAILY 10/17/17 Diltiazem Cd [Cardizem Cd -] 180 mg PO DAILY 10/18/17 Tiotropium [place] [Spiriva] 1 inh PO DAILY 10/18/17 Aspirin [ASA -] 81 mg PO DAILY 04/16/18 Cyclosporine [Restasis] 1 each OP BID 04/16/18 Ketorolac Tromethamine [Acular] 5 ml OP BID 04/16/18 Pantoprazole Sodium [Protonix] 40 mg PO BID 30 Days #60 tablet. MDD 2 tabs Dicyclomine HCl [Bentyl -] 20 mg PO PRN 05/09/18 Family Disease History - Family Disease History Family Disease History: CA: Father (Lung CA), Other: Mother (HTN) Review of Systems - Review of Systems Constitutional: reports: No Symptoms Eyes: reports: No Symptoms HENT: reports: No Symptoms Neck: reports: No Symptoms Cardiovascular: reports: Shortness of Breath Respiratory: reports: SOB, SOB on Exertion, Wheezing Gastrointestinal: reports: Abdominal Pain Genitourinary: reports: No Symptoms Breasts: reports: No Symptoms Reported Musculoskeletal: reports: Muscle Pain Integumentary: reports: No Symptoms Neurological: reports: No Symptoms Endocrine: reports: No Symptoms Hematology/Lymphatic: reports: No Symptoms Psychiatric: reports: No Symptoms Physical Examination Vital Signs: Vital Signs Temperature 98.2 F 05/09/18 21:35 Pulse Rate 96 H 05/09/18 21:35 Respiratory Rate 22 05/09/18 21:35 Blood Pressure 106/75 05/09/18 21:35 O2 Sat by Pulse Oximetry (%) 96 05/09/18 21:35 Constitutional: Yes: Well Nourished, Anxious, Mild Distress Eyes: Yes: WNL, Conjunctiva Clear, EOM Intact, PERRL HENT: Yes: WNL, Atraumatic, Normocephalic Neck: Yes: WNL, Supple, Trachea Midline Cardiovascular: Yes: WNL, Regular Rate and Rhythm, S1, S2 Respiratory: Yes: Rales, Rhonchi, SOB, Wheezes Gastrointestinal: Yes: WNL, Normal Bowel Sounds, Soft, Abdomen, Obese Renal/: Yes: WNL Breast(s): Yes: WNL Musculoskeletal: Yes: WNL Extremities: Yes: WNL Edema: No Peripheral Pulses WNL: Yes Neurological: Yes: WNL, Alert, Oriented, Cran Nerves II-XII Intact ...Motor Strength: WNL Psychiatric: Yes: WNL, Alert, Oriented Labs: CBC, BMP 05/09/18 17:17 05/09/18 17:17 Laboratory Results - last 24 hr 05/09/18 05/09/18 17:17 17:17 WBC 10.7 H RBC 4.44 Hgb 11.6 Hct 36.4 MCV 82.0 MCH 26.1 MCHC 31.9 L RDW 16.4 H Plt Count 390 D MPV 7.2 L Absolute Neuts (auto) 6.3 Neutrophils % 59.1 D Lymphocytes % 31.4 D Monocytes % 8.1 Eosinophils % 0.7 D Basophils % 0.7 Nucleated RBC % 0 Sodium 143 Potassium 3.8 Chloride 108 H Carbon Dioxide 24 Anion Gap 11 BUN 17 Creatinine 0.8 Creat Clearance w eGFR > 60 Random Glucose 109 H Calcium 9.5 Total Bilirubin 0.6 AST 6 L ALT 17 Alkaline Phosphatase 92 Creatine Kinase 60 Troponin I < 0.02 Total Protein 6.5 Albumin 3.7 Intake & Output 05/07/18 05/08/18 05/09/18 05/10/18 23:59 23:59 23:59 23:59 Weight 77.111 kg 77.746 kg Current Medications Generic Name Dose Route Start Last Admin Trade Name Freq PRN Reason Stop Dose Admin Albuterol/Ipratropium 1 amp 05/10/18 08:00 Duoneb - NEB RQID SANDEEP Amitriptyline HCl 35 mg 05/10/18 03:24 05/10/18 04:08 Elavil - PO 05/10/18 10:00 35 mg HS SANDEEP Administration Amitriptyline HCl 25 mg/ 35 mg 05/10/18 22:00 Amitriptyline HCl 10 mg PO HS [facility] Aspirin 81 mg 05/10/18 10:00 Asa - PO DAILY [facility] Atorvastatin Calcium 10 mg 05/10/18 03:25 05/10/18 04:09 Lipitor - PO 10 mg HS SANDEEP Administration Cholecalciferol 2,000 unit 05/10/18 10:00 Vitamin D3 - PO DAILY [facility] Clonazepam 0.5 mg 05/10/18 03:26 Klonopin - PO DAILY PRN ANXIETY Cyanocobalamin 1,000 mcg 05/10/18 10:00 Vitamin B12 - PO DAILY [facility] Dicyclomine HCl 20 mg 05/10/18 03:30 Bentyl - PO PRN SANDEEP Diltiazem HCl 180 mg 05/10/18 10:00 Cardizem Cd - PO DAILY [facility] Heparin Sodium (Porcine) 5,000 unit 05/10/18 10:00 Heparin - SQ BID [facility] Influenza Virus Vaccine Quadrival 60 mcg 05/10/18 05:18 Flulaval Quad [id number] IM 05/10/18 05:19 .ONCE ONE Ketorolac Tromethamine 1 drop 05/10/18 10:00 Ketorolac 0.5% Eye Drop OU BID [facility] Methylprednisolone Sodium Succinate 40 mg 05/10/18 03:00 05/10/18 03:09 Solu-Medrol - IVPUSH 40 mg Q6H-IV [facility] Administration Non-Formulary Medication 1 each 05/10/18 10:00 Cyclosporine [Restasis] OP BID [facility] Non-Formulary Medication 1 each 05/10/18 10:00 Fluticasone/Vilanterol [Breo Ellipta 200-25 Mcg Inh] IH DAILY [facility] Non-Formulary Medication 300 mg 05/10/18 10:00 [place]-3 Fatty Acids [Fish Oil] PO DAILY [facility] Pantoprazole Sodium 40 mg 05/10/18 03:25 05/10/18 04:09 Protonix - PO 40 mg BID SANDEEP Administration Roflumilast 500 mcg 05/10/18 10:00 Daliresp - PO DAILY [facility] Tiotropium [place] 2 puff 05/10/18 10:00 Spiriva Respimat IH DAILY [facility] Imaging - Results Chest X-ray: Image Reviewed EKG: Image Reviewed Problem List - Problems (1) Acute exacerbation of chronic obstructive pulmonary disease (COPD) Code(s): J44.1 - CHRONIC OBSTRUCTIVE PULMONARY DISEASE W (ACUTE) EXACERBATION (2) Shortness of breath Code(s): R06.02 - SHORTNESS OF BREATH (3) HTN (hypertension) Code(s): I10 - ESSENTIAL (PRIMARY) HYPERTENSION Qualifiers: Hypertension type: essential hypertension Qualified Code(s): I10 - Essential (primary) hypertension (4) HLD (hyperlipidemia) Code(s): E78.5 - HYPERLIPIDEMIA, UNSPECIFIED (5) Anxiety Code(s): F41.9 - ANXIETY DISORDER, UNSPECIFIED (6) PUD (peptic ulcer disease) Code(s): K27.9 - PEPTIC ULC, SITE UNSP, UNSP AC OR CHR, W/O HEMOR OR PERF (7) Thyromegaly Code(s): E04.9 - NONTOXIC GOITER, UNSPECIFIED Assessment/Plan This is a 57 y/o woman admitted for Acute COPD Exacerbation for further evaluation of their emergent condition. Plan: 1. Acute Exacerbation of COPD Chest Xray reviewed Continue Duonebs sandeep [facility] Pulm consult Solumederol given in ED, will continue w/taper O2 prn Continue home meds CBC, BMP in am 2. Hypertension stable Monitor BP Continue home meds with parameters Monitor renal function 3. HLD stable Continue Lipitor Monitor LFTs 4. Anxiety stable Continue home meds FEN PO fluids as tolerated Replete lytes prn Low Na Diet Code Status: Full Code Dispo: Requires Inpatient Care Visit type - Emergency Visit Emergency Visit: Yes ED Registration Date: 05/09/18 Care time: The patient presented to the Emergency Department on the above date and was hospitalized for further evaluation of their emergent condition. - New Patient This patient is new to me today: Yes Date on this admission: 05/10/18 - Critical Care Critical Care patient: No Hospitalist Screening - Colonoscopy Questionnaire Colonoscopy Questionnaire: Colonoscopy Questionnaire - Patient: 50 - 75 years old and never had a screening colonoscopy: No History of colon or rectal polyps, or CA: Yes History of IBD, Crohn's disease or UC: No History of abdominal radiation therapy as a child: No - Relative: 1 with colon or rectal CA, or polyps at age 60 or younger: No Colon or rectal CA diagnosed at age 45 or younger: No Multiple relatives with colon or rectal CA: No - Outcome: Screening Result: Positive Screen
[2018-05-10] MEDS ORDERED: methylPREDNISolone NA SUCC 40 MG/1 ML VIAL ONE (03:08)
[2018-05-10] MEDS: methylPREDNISolone NA SUCC 40 MG/1 ML VIAL IVPUSH SCH ×4 (03:09→21:01)
[2018-05-10] MEDS ORDERED: AMITRIPTYLINE HCL 25 MG TABLET (FP) PO SCH (03:24)
[2018-05-10] MEDS ORDERED: clonazePAM 0.5 MG TABLET PO PRN (03:26)
[2018-05-10] MEDS ORDERED: DICYCLOMINE HCL 20 MG TABLET PO SCH (03:30)
[2018-05-10] MEDS ORDERED: PANTOPRAZOLE 40 MG TABLET (FP) ONE (04:00)
[2018-05-10] MEDS ORDERED: ATORVASTATIN CA 10 MG TABLET (FP) ONE (04:00)
[2018-05-10] MEDS: PANTOPRAZOLE 40 MG TABLET (FP) PO SCH ×3 (04:09→21:02)
[2018-05-10] MEDS: ATORVASTATIN CA 10 MG TABLET (FP) PO SCH ×2 (04:09→21:05)
[2018-05-10 05:07] VITALS: BMI 30.3
[2018-05-10] MEDS ORDERED: DICYCLOMINE HCL 20 MG TABLET PO PRN (06:54)
[2018-05-10] MEDS ORDERED: PT OWN MED DRAWER 7, Y5N ONE ×4 (08:41→21:08)
[2018-05-10 08:55] LABS: ANION GAP 13 MMOL/L (8-16); BLOOD UREA NITROGEN 19 mg/dL (7-18); CALCIUM 9.7 mg/dL (8.5-10.1); CHLORIDE 106 mmol/L (98-107); CO2 20 mmol/L (21-32); GLUCOSE,RANDOM 146 mg/dL (74-106); POTASSIUM 4.8 mmol/L (3.5-5.1); SODIUM 139 mmol/L (136-145)
[2018-05-10] MEDS: ALBUTEROL SO4 2.5/IPRATROPIUM 0.5 INH SOL 3 ML VIAL.NEB. NEB SCH ×4 (08:55→20:06)
[2018-05-10 08:56] LABS: CREATININE 0.6 mg/dL (0.55-1.3)
[2018-05-10] MEDS: CYANOCOBALAMIN 1,000 MCG TABLET (FP) PO SCH (09:04)
[2018-05-10] MEDS: CHOLECALCIFEROL (VITAMIN D3) 1,000 UNIT TABLET (FP) PO SCH (09:04)
[2018-05-10] MEDS: ASPIRIN 81 MG CHEWABLE TABLETS PO SCH (09:04)
[2018-05-10] MEDS: TIOTROPIUM BROMIDE 2.5 MCG (SPIRIVA) RESPIMAT INHALER IH SCH (09:06)
[2018-05-10] MEDS: HEPARIN NA (PORCINE) 5,000 UNITS/ML 1ML VIAL SQ SCH ×2 (09:07→21:01)
--- NOTE | 2018-05-10 09:58 | EKG ---
Test Reason : Blood Pressure : / mmHG Vent. Rate : 098 BPM Atrial Rate : 098 BPM P-R Int : 132 ms QRS Dur : 086 ms QT Int : 342 ms P-R-T Axes : 066 011 042 degrees QTc Int : 436 ms NORMAL SINUS RHYTHM POSSIBLE LEFT ATRIAL ENLARGEMENT LEFT VENTRICULAR HYPERTROPHY ABNORMAL ECG WHEN COMPARED WITH ECG OF 08-APR-2018 21:45, NO SIGNIFICANT CHANGE WAS FOUND Confirmed by ENEDINA MORENO, JES ([id number]) on 05/10/2018 9:58:21 AM Referred By: Confirmed By:JES MCCONNELL MD
[2018-05-10] MEDS ORDERED: PATIENT'S OWN MEDICATION (NON-FORMULARY) (Omega-3 Fatty Acids [Fish Oil] 300 MG) PO SCH (10:00)
[2018-05-10] MEDS ORDERED: PATIENT'S OWN MEDICATION (NON-FORMULARY) (Fluticasone/Vilanterol [Breo Ellipta 200-25 Mcg IH SCH (10:00)
[2018-05-10] MEDS ORDERED: PATIENT'S OWN MEDICATION (NON-FORMULARY) (Cyclosporine [Restasis] 1 EACH) OP SCH (10:00)
[2018-05-10] MEDS ORDERED: FLU VACCINE QUAD 60 MCG/0.5 ML (MDV 18-19) IM ONE (10:00)
[2018-05-10 10:15] LABS: BASO % 0.1 % (0-2.0); HEMATOCRIT 34.7 % (32.4-45.2); HEMOGLOBIN 11.1 GM/dL (10.7-15.3); LYMPH % 5.4 % (8-40); MCH 26.3 pg (25.7-33.7); MCHC 32.1 g/dl (32.0-36.0); MEAN PLT VOLUME 7.4 fl (7.5-11.1); MONO % 0.6 % (3.8-10.2); NEUT % 93.9 % (42.8-82.8); PLATELET COUNT 428 K/MM3 (134-434); RBC 4.23 M/mm3 (3.60-5.2); RDW 16.4 % (11.6-15.6); WHITE BLOOD COUNT 15.2 K/mm3 (4.0-10.0)
[2018-05-10 12:04] LABS: ACANTHOCYTES 0; ANISOCYTOSIS 0; HELMET CELLS 0; HOWELL-JOLLY BODIES 0; MACROCYTOSIS 0; OVALOCYTE 0; PLATELET ESTIMATE NORMAL; ROULEAU 0; SICKELED CELLS 0; TARGET CELLS 0; TEAR DROP CELLS 0; TOXIC GRANULATION 0
[2018-05-10] MEDS: ROFLUMILAST 500 MCG TABLET PO SCH (12:45)
[2018-05-10] MEDS: KETOROLAC TROMETHAMINE 0.5% EYE DROP 1 DROP DROPS OU SCH ×2 (12:45→21:01)
--- NOTE | 2018-05-10 13:15 | PN ---
Progress Note (short form) - Note Progress Note: Events noted tells me that she has been on prednisone taper als=most every month now-- she recently completed prednisone a few days ago and still feels SOB mild cough c/o pain in lower back no palpitations Vital Signs - 24 hr 05/09/18 05/09/18 05/09/18 16:37 19:33 21:35 Temperature 98.2 F 98.9 F 98.2 F Pulse Rate 100 H Pulse Rate [ 108 H 96 H Apical] Respiratory 20 20 22 Rate Blood Pressure 100/66 Blood Pressure 108/75 106/75 [Left Arm] O2 Sat by Pulse 97 96 96 Oximetry (%) 05/10/18 05/10/18 05/10/18 00:56 03:03 05:00 Temperature 97.8 F Pulse Rate Pulse Rate [ 86 Apical] Respiratory 16 22 Rate Blood Pressure Blood Pressure 117/67 [Left Arm] O2 Sat by Pulse 98 96 96 Oximetry (%) 05/10/18 05/10/18 05/10/18 05:04 08:46 09:00 Temperature 97.9 F 98 F Pulse Rate 98 H 105 H Pulse Rate [ Apical] Respiratory 22 22 22 Rate Blood Pressure 139/71 154/86 Blood Pressure [Left Arm] O2 Sat by Pulse 96 Oximetry (%) Current Medications Generic Name Dose Route Start Last Admin Trade Name Freq PRN Reason Stop Dose Admin Albuterol/Ipratropium 1 amp 05/10/18 08:00 05/10/18 11:35 Duoneb - NEB 1 amp RQID SANDEEP Administration Amitriptyline HCl 25 mg/ 35 mg 05/10/18 22:00 Amitriptyline HCl 10 mg PO HS SANDEEP Aspirin 81 mg 05/10/18 10:00 05/10/18 09:04 Asa - PO 81 mg DAILY SANDEEP Administration Atorvastatin Calcium 10 mg 05/10/18 03:25 05/10/18 04:09 Lipitor - PO 10 mg HS SANDEEP Administration Cholecalciferol 2,000 unit 05/10/18 10:00 05/10/18 09:04 Vitamin D3 - PO 2,000 unit DAILY SANDEEP Administration Clonazepam 0.5 mg 05/10/18 03:26 Klonopin - PO DAILY PRN ANXIETY Cyanocobalamin 1,000 mcg 05/10/18 10:00 05/10/18 09:04 Vitamin B12 - PO 1,000 mcg DAILY SANDEEP Administration Cyclobenzaprine HCl 5 mg 05/10/18 12:30 Cyclobenzaprine Hcl PO DAILY SANDEEP Dicyclomine HCl 20 mg 05/10/18 06:54 Bentyl - PO DAILY PRN PEPTIC ULCER Diltiazem HCl 180 mg 05/10/18 10:00 05/10/18 09:04 Cardizem Cd - PO 180 mg DAILY SANDEEP Administration Heparin Sodium (Porcine) 5,000 unit 05/10/18 10:00 05/10/18 09:07 Heparin - SQ 5,000 unit BID SANDEEP Administration Ketorolac Tromethamine 1 drop 05/10/18 10:00 05/10/18 12:45 Ketorolac 0.5% Eye Drop OU 1 drop BID SANDEEP Administration Methylprednisolone Sodium Succinate 40 mg 05/10/18 03:00 05/10/18 09:02 Solu-Medrol - IVPUSH 40 mg Q6H-IV SANDEEP Administration Non-Formulary Medication 1 each 05/10/18 10:00 Cyclosporine [Restasis] OP BID SANDEEP Non-Formulary Medication 1 each 05/10/18 10:00 Fluticasone/Vilanterol [Breo Ellipta 200-25 Mcg Inh] IH DAILY SANDEEP Non-Formulary Medication 300 mg 05/10/18 10:00 [place]-3 Fatty Acids [Fish Oil] PO DAILY SANDEEP Pantoprazole Sodium 40 mg 05/10/18 03:25 05/10/18 09:04 Protonix - PO 40 mg BID SANDEEP Administration Roflumilast 500 mcg 05/10/18 10:00 05/10/18 12:45 Daliresp - PO 500 mcg DAILY SANDEEP Administration Tiotropium [place] 2 puff 05/10/18 10:00 05/10/18 09:06 Spiriva Respimat IH 2 puff DAILY SANDEEP Administration Laboratory Results - last 24 hr 05/09/18 05/09/18 05/10/18 17:17 17:17 06:30 WBC 10.7 H Cancelled Corrected WBC (auto) Cancelled RBC 4.44 Cancelled Hgb 11.6 Cancelled Hct 36.4 Cancelled MCV 82.0 Cancelled MCH 26.1 Cancelled MCHC 31.9 L Cancelled RDW 16.4 H Cancelled Plt Count 390 D Cancelled MPV 7.2 L Cancelled Absolute Neuts (auto) 6.3 Cancelled Neutrophils % 59.1 D Cancelled Neutrophils % (Manual) Band Neutrophils % Lymphocytes % 31.4 D Cancelled Lymphocytes % (Manual) Monocytes % 8.1 Cancelled Monocytes % (Manual) Eosinophils % 0.7 D Cancelled Eosinophils % (Manual) Basophils % 0.7 Cancelled Basophils % (Manual) Myelocytes % (Man) Promyelocytes % (Man) Blast Cells % (Manual) Nucleated RBC % 0 Cancelled Metamyelocytes Hypochromia Toxic Granulation Dohle Bodies Platelet Estimate Cancelled Platelet Comment Cancelled Polychromasia Poikilocytosis Basophilic Stippling Anisocytosis Microcytosis Macrocytosis Spherocytes Sickle Cells Target Cells Tear Drop Cells Ovalocytes Stomatocytes Helmet Cells [place] Bodies [place] Rings [place] Cells Acanthocytes (Spur) Rouleaux Fragmented RBCs Schistocytes Sodium 143 Potassium 3.8 Chloride 108 H Carbon Dioxide 24 Anion Gap 11 BUN 17 Creatinine 0.8 Creat Clearance w eGFR > 60 Random Glucose 109 H Calcium 9.5 Total Bilirubin 0.6 AST 6 L ALT 17 Alkaline Phosphatase 92 Creatine Kinase 60 Troponin I < 0.02 Total Protein 6.5 Albumin 3.7 05/10/18 05/10/18 06:30 09:55 WBC 15.2 H Corrected WBC (auto) RBC 4.23 Hgb 11.1 Hct 34.7 MCV 82.0 MCH 26.3 MCHC 32.1 RDW 16.4 H Plt Count 428 MPV 7.4 L Absolute Neuts (auto) 14.3 H Neutrophils % 93.9 H D Neutrophils % (Manual) 96.0 H Band Neutrophils % 0.0 Lymphocytes % 5.4 L D Lymphocytes % (Manual) 4.0 L Monocytes % 0.6 L D Monocytes % (Manual) 0 L Eosinophils % 0.0 D Eosinophils % (Manual) 0.0 Basophils % 0.1 Basophils % (Manual) 0.0 Myelocytes % (Man) 0 Promyelocytes % (Man) 0 Blast Cells % (Manual) 0 Nucleated RBC % 0 Metamyelocytes 0 Hypochromia 0 Toxic Granulation 0 Dohle Bodies 0 Platelet Estimate Normal Platelet Comment Polychromasia 0 Poikilocytosis 0 Basophilic Stippling 0 Anisocytosis 0 Microcytosis 0 Macrocytosis 0 Spherocytes 0 Sickle Cells 0 Target Cells 0 Tear Drop Cells 0 Ovalocytes 0 Stomatocytes 0 Helmet Cells 0 [place] Bodies 0 [place] Rings 0 Mark Cells 0 Acanthocytes (Spur) 0 Rouleaux 0 Fragmented RBCs 0 Schistocytes 0 Sodium 139 Potassium 4.8 Chloride 106 Carbon Dioxide 20 L Anion Gap 13 BUN 19 H Creatinine 0.6 Creat Clearance w eGFR > 60 Random Glucose 146 H Calcium 9.7 Total Bilirubin AST ALT Alkaline Phosphatase Creatine Kinase Troponin I Total Protein Albumin S1 S2 RRR Lungs decreased , ronchi B/L Abd- soft, NT ' No edema PLAN On IV Solumedrol check CT chest Pulmonary eval nebs hold off antibiotics flexeril for back discomfort continue with meds Problem List - Problems (1) Acute exacerbation of chronic obstructive pulmonary disease (COPD) Code(s): J44.1 - CHRONIC OBSTRUCTIVE PULMONARY DISEASE W (ACUTE) EXACERBATION (2) COPD exacerbation Code(s): J44.1 - CHRONIC OBSTRUCTIVE PULMONARY DISEASE W (ACUTE) EXACERBATION (3) HLD (hyperlipidemia) Code(s): E78.5 - HYPERLIPIDEMIA, UNSPECIFIED (4) Anxiety Code(s): F41.9 - ANXIETY DISORDER, UNSPECIFIED (5) HTN (hypertension) Code(s): I10 - ESSENTIAL (PRIMARY) HYPERTENSION Qualifiers: Hypertension type: essential hypertension Qualified Code(s): I10 - Essential (primary) hypertension
[2018-05-10] MEDS: CYCLOBENZAPRINE HCL 10 MG TABLET (FP) PO SCH (13:46)
--- NOTE | 2018-05-10 14:11 | CON.PULM ---
Consult Consult Specialty:: PULMONARY Referred by:: Dr. Ludwig Reason for Consultation:: COPD - History of Present Illness Chief Complaint: shortness of breath History of Present Illness: 57yo female with h/o HTN, hyperlipidemia, COPD who was admitted with worsening shortness of breath x 1 week. She had recently completed a rapid prednisone taper. Reports a nonproductive cough and wheezing. No chest pain but with sharp lower abdominal pain associated with certain movements. No fevers but with chills. Has been on prednisone almost monthly now. Quit smoking 7 years ago. - History Source History Provided By: Patient, Medical Record Limitations to Obtaining History: Clinical Condition - Past Medical History Cardio/Vascular: Yes: HTN, Hyperlipdemia Pulmonary: Yes: COPD Gastrointestinal: Yes: Other (HERNIA REPAIR WITH COMPLICATIONS AND POST OP SBO) ...LMP: 08/04/13 Psych: Yes: Anxiety Musculoskeletal: Yes: Osteoarthritis, Other (KNEE SURGERY) Rheumatology: Yes: Other (OSTEOARTHRITIS) - Past Surgical History Past Surgical History: Yes: Hernia Repair - Alcohol/Substance Use Hx Alcohol Use: No History of Substance Use: reports: None - Smoking History Smoking history: Former smoker Have you smoked in the past 12 months: No Aproximately how many cigarettes per day: 0 If you are a former smoker, when did you quit?: 2011 - Social History ADL: Independent History of Recent Travel: No Home Medications - Allergies Allergies/Adverse Reactions: Allergies Allergy/AdvReac Type Severity Reaction Status Date / Time Penicillins Allergy Hives Verified 05/09/18 16:39 Sulfa (Sulfonamide Allergy Hives Verified 05/09/18 16:39 Antibiotics) [Sulfa(Sulfonamide Antibiotics)] - Home Medications Home Medications: Ambulatory Orders Atorvastatin [place] [Lipitor] 10 mg PO HS 06/24/15 Roflumilast [Daliresp] 500 mcg PO DAILY 06/24/15 Cyanocobalamin [Vitamin B12 -] 1,000 mcg PO DAILY tablet 03/28/16 Amitriptyline HCl [Elavil -] 35 mg PO HS 09/23/16 [place]-3 Fatty Acids [Fish Oil] 300 mg PO DAILY 11/23/16 clonazePAM [Klonopin -] 0.5 mg PO PRN PRN 11/23/16 Cholecalciferol (Vitamin D3) [Vitamin D3 -] 2,000 unit PO DAILY 08/27/17 Albuterol 0.083% Nebulizer [place] [Ventolin 0.083% Nebulizer Soln -] 1 amp NEB TIDR #30 amp 06/30/17 Albuterol Sulfate Inhaler - [Ventolin HFA Inhaler -] 2 puff IH Q4H PRN #1 inhaler 06/30/17 Fluticasone/Vilanterol [Breo Ellipta 200-25 Mcg INH] 1 each IH DAILY 10/17/17 Diltiazem Cd [Cardizem Cd -] 180 mg PO DAILY 10/18/17 Tiotropium [place] [Spiriva] 1 inh PO DAILY 10/18/17 Aspirin [ASA -] 81 mg PO DAILY 04/16/18 Cyclosporine [Restasis] 1 each OP BID 04/16/18 Ketorolac Tromethamine [Acular] 5 ml OP BID 04/16/18 Pantoprazole Sodium [Protonix] 40 mg PO BID 30 Days #[address] KHAN 2 tabs Dicyclomine HCl [Bentyl -] 20 mg PO PRN 05/09/18 Family Disease History - Family Disease History Family Disease History: CA: Father (Lung CA), Other: Mother (HTN) Review of Systems - Review of Systems Constitutional: reports: Chills, Weakness. denies: Fever Eyes: denies: Recent Change in Vision HENT: denies: Nasal Congestion, Throat Pain Neck: denies: Stiffness, Tenderness Cardiovascular: reports: Shortness of Breath. denies: Chest Pain, Edema, Palpitations Respiratory: reports: Cough, Exercise Intolerance, SOB on Exertion, Wheezing. denies: Hemoptysis Gastrointestinal: reports: Abdominal Pain. denies: Nausea, Vomiting Genitourinary: denies: Dysuria, Hematuria Neurological: denies: Dizziness, Headache Endocrine: denies: Unexplained Weight Loss Physical Exam Vital Sings: Vital Signs Temperature 97.9 F 05/10/18 13:55 Pulse Rate 105 H 05/10/18 08:46 Respiratory Rate 22 05/10/18 09:00 Blood Pressure 154/86 05/10/18 08:46 O2 Sat by Pulse Oximetry (%) 96 05/10/18 09:00 Constitutional: Yes: Mild Distress Eyes: Yes: Conjunctiva Clear, EOM Intact HENT: Yes: Atraumatic, Normocephalic Neck: Yes: Supple Cardiovascular: Yes: Tachycardia Respiratory: Yes: Poor Air Entry, Wheezes ...Clubbing: No Gastrointestinal: Yes: Normal Bowel Sounds, Soft. No: Tenderness Edema: No Neurological: Yes: Alert, Oriented Labs: CBC, BMP 05/10/18 09:55 05/10/18 06:30 Imaging - Results Chest X-ray: Report Reviewed, Image Reviewed (left basilar atelectasis) Problem List - Problems (1) Acute exacerbation of chronic obstructive pulmonary disease (COPD) Code(s): J44.1 - CHRONIC OBSTRUCTIVE PULMONARY DISEASE W (ACUTE) EXACERBATION (2) HLD (hyperlipidemia) Code(s): E78.5 - HYPERLIPIDEMIA, UNSPECIFIED (3) HTN (hypertension) Code(s): I10 - ESSENTIAL (PRIMARY) HYPERTENSION Qualifiers: Hypertension type: essential hypertension Qualified Code(s): I10 - Essential (primary) hypertension Assessment/Plan Acute COPD Exacerbation HTN Hypercholesterolemia - continue medrol at current dose - inhaled bronchodilators standing and PRN - O2 to keep SpO2>90% - daliresp - hopefully can get pt off prednisone as outpt and can check IgE, CBC, RAST as she has had eosinophilia in the past - DVT prophylaxis Thank you for this consult Kd Lugo MD
[2018-05-10] MEDS ORDERED: ACETAMINOPHEN 325 MG TABLET (FP) PO PRN (15:29)
[2018-05-10] MEDS: AMITRIPTYLINE HCL PO SCH (21:18)
[2018-05-10] MEDS: ARTIFICIAL TEARS (POLYVINYL ALCOHOL) OPTH DROPS OU PRN (21:19)
[2018-05-11] MEDS ORDERED: CYCLOBENZAPRINE HCL 10 MG TABLET (FP) PO ONE (01:26)
[2018-05-11] MEDS: methylPREDNISolone NA SUCC 40 MG/1 ML VIAL IVPUSH SCH ×4 (02:20→22:32)
[2018-05-11] MEDS ORDERED: DICYCLOMINE HCL 10 MG CAPSULE PO PRN (03:00)
[2018-05-11] MEDS: ALBUTEROL SO4 2.5/IPRATROPIUM 0.5 INH SOL 3 ML VIAL.NEB. NEB SCH ×4 (07:35→20:25)
[2018-05-11] MEDS ORDERED: PT OWN MED DRAWER 7, Y5N ONE ×2 (09:12→22:28)
[2018-05-11] MEDS: PANTOPRAZOLE 40 MG TABLET (FP) PO SCH ×2 (09:14→22:33)
[2018-05-11] MEDS: ASPIRIN 81 MG CHEWABLE TABLETS PO SCH (09:14)
[2018-05-11] MEDS: CYANOCOBALAMIN 1,000 MCG TABLET (FP) PO SCH (09:14)
[2018-05-11] MEDS: CYCLOBENZAPRINE HCL 10 MG TABLET (FP) PO SCH (09:14)
[2018-05-11] MEDS: TIOTROPIUM BROMIDE 2.5 MCG (SPIRIVA) RESPIMAT INHALER IH SCH (09:14)
[2018-05-11] MEDS: CHOLECALCIFEROL (VITAMIN D3) 1,000 UNIT TABLET (FP) PO SCH (09:14)
[2018-05-11] MEDS: HEPARIN NA (PORCINE) 5,000 UNITS/ML 1ML VIAL SQ SCH ×2 (09:15→22:54)
[2018-05-11] MEDS: ROFLUMILAST 500 MCG TABLET PO SCH (09:15)
[2018-05-11] MEDS: KETOROLAC TROMETHAMINE 0.5% EYE DROP 1 DROP DROPS OU SCH ×2 (09:21→23:13)
--- NOTE | 2018-05-11 09:57 | PN ---
Progress Note (short form) - Note Progress Note: Pt seen/ examined anxious chart reviewed multiple non specific complains afebrile no distress Vital Signs Temp 98 F 05/11/18 08:50 Pulse 95 H 05/11/18 08:50 Resp 20 05/11/18 08:50 BP 140/75 05/11/18 08:50 Pulse Ox 94 L 05/10/18 21:25 Intake & Output 05/10/18 05/10/18 05/11/18 11:59 23:59 11:59 Intake Total 150 150 150 Balance 150 150 150 Weight 171 lb 6.4 oz Intake: Oral 150 150 150 Other: Voiding Method Toilet Toilet Toilet # Unmeasured Voids Void 1 Bowel Movement No Height 5 ft 3 in Body Mass Index (BMI) 30.3 Weight Measurement Method Standing Scale Active Medications Acetaminophen (Tylenol -) 650 mg PO Q6H PRN PRN Reason: PAIN SCALE 1-4 Albuterol/Ipratropium (Duoneb -) 1 amp NEB RQID [facility] Last Admin: 05/10/18 20:06 Dose: Not Given Amitriptyline HCl 25 mg/ (Amitriptyline HCl 10 mg) 35 mg PO [facility] Last Admin: 05/10/18 21:18 Dose: 35 mg Artificial Tears (Artificial Tears) 1 drop OU Q8H PRN PRN Reason: DRY EYES Last Admin: 05/10/18 21:19 Dose: 1 drop Aspirin (Asa -) 81 mg PO DAILY [facility] Last Admin: 05/11/18 09:14 Dose: 81 mg Atorvastatin Calcium (Lipitor -) 10 mg PO [facility] Last Admin: 05/10/18 21:05 Dose: 10 mg Cholecalciferol (Vitamin D3 -) 2,000 unit PO DAILY [facility] Last Admin: 05/11/18 09:14 Dose: 2,000 unit Clonazepam (Klonopin -) 0.5 mg PO DAILY PRN PRN Reason: ANXIETY Cyanocobalamin (Vitamin B12 -) 1,000 mcg PO DAILY [facility] Last Admin: 05/11/18 09:14 Dose: 1,000 mcg Cyclobenzaprine HCl (Flexeril -) 5 mg PO DAILY [facility] Last Admin: 05/11/18 09:14 Dose: 5 mg Dicyclomine HCl (Bentyl -) 20 mg PO Q6H PRN PRN Reason: PEPTIC ULCER Last Admin: 05/11/18 03:31 Dose: 20 mg Diltiazem HCl (Cardizem Cd -) 180 mg PO DAILY [facility] Last Admin: 05/11/18 09:14 Dose: 180 mg Heparin Sodium (Porcine) (Heparin -) 5,000 unit SQ BID [facility] Last Admin: 05/11/18 09:15 Dose: 5,000 unit Ketorolac Tromethamine (Ketorolac 0.5% Eye Drop) 1 drop OU BID [facility] Last Admin: 05/11/18 09:21 Dose: 1 drop Methylprednisolone Sodium Succinate (Solu-Medrol -) 40 mg IVPUSH Q6H-IV [facility] Last Admin: 05/11/18 09:14 Dose: 40 mg Non-Formulary Medication (Cyclosporine [Restasis]) 1 each OP BID SANDEEP Non-Formulary Medication (Fluticasone/Vilanterol [Breo Ellipta 200-25 Mcg Inh]) 1 each IH DAILY [facility] Non-Formulary Medication ([place]-3 Fatty Acids [Fish Oil]) 300 mg PO DAILY [facility] Pantoprazole Sodium (Protonix -) 40 mg PO BID [facility] Last Admin: 05/11/18 09:14 Dose: 40 mg Roflumilast (Daliresp -) 500 mcg PO DAILY [facility] Last Admin: 05/11/18 09:15 Dose: 500 mcg Tiotropium [place] (Spiriva Respimat) 2 puff IH DAILY [facility] Last Admin: 05/11/18 09:14 Dose: 2 puff CBC, BMP 05/10/18 09:55 05/10/18 06:30 Physical Exam S1 S2 RRR Lungs Bilateral ronchi B/L Abd- soft, NT ' No edema Anxious PLAN On IV Solumedrol CT chest --copd Pulmonary eval - noted neb continue with meds wants regular diet will follow Problem List - Problems (1) Acute exacerbation of chronic obstructive pulmonary disease (COPD) Code(s): J44.1 - CHRONIC OBSTRUCTIVE PULMONARY DISEASE W (ACUTE) EXACERBATION (2) Abdominal pain Code(s): R10.9 - UNSPECIFIED ABDOMINAL PAIN (3) Anxiety Code(s): F41.9 - ANXIETY DISORDER, UNSPECIFIED (4) HTN (hypertension) Code(s): I10 - ESSENTIAL (PRIMARY) HYPERTENSION Qualifiers: Hypertension type: essential hypertension Qualified Code(s): I10 - Essential (primary) hypertension
--- NOTE | 2018-05-11 14:40 | PN ---
Progress Note, Physician History of Present Illness: PULMONARY ALERT,LESS DYSPNEIC - Current Medication List Current Medications: Active Medications Acetaminophen (Tylenol -) 650 mg PO Q6H PRN PRN Reason: PAIN SCALE 1-4 Albuterol/Ipratropium (Duoneb -) 1 amp NEB RQID [facility] Last Admin: 05/11/18 11:35 Dose: 1 amp Amitriptyline HCl 25 mg/ (Amitriptyline HCl 10 mg) 35 mg PO HS [facility] Last Admin: 05/10/18 21:18 Dose: 35 mg Artificial Tears (Artificial Tears) 1 drop OU Q8H PRN PRN Reason: DRY EYES Last Admin: 05/10/18 21:19 Dose: 1 drop Aspirin (Asa -) 81 mg PO DAILY [facility] Last Admin: 05/11/18 09:14 Dose: 81 mg Atorvastatin Calcium (Lipitor -) 10 mg PO HS [facility] Last Admin: 05/10/18 21:05 Dose: 10 mg Cholecalciferol (Vitamin D3 -) 2,000 unit PO DAILY [facility] Last Admin: 05/11/18 09:14 Dose: 2,000 unit Clonazepam (Klonopin -) 0.5 mg PO DAILY PRN PRN Reason: ANXIETY Cyanocobalamin (Vitamin B12 -) 1,000 mcg PO DAILY [facility] Last Admin: 05/11/18 09:14 Dose: 1,000 mcg Cyclobenzaprine HCl (Flexeril -) 5 mg PO DAILY [facility] Last Admin: 05/11/18 09:14 Dose: 5 mg Dicyclomine HCl (Bentyl -) 20 mg PO Q4H PRN PRN Reason: PEPTIC ULCER Diltiazem HCl (Cardizem Cd -) 180 mg PO DAILY [facility] Last Admin: 05/11/18 09:14 Dose: 180 mg Heparin Sodium (Porcine) (Heparin -) 5,000 unit SQ BID [facility] Last Admin: 05/11/18 09:15 Dose: 5,000 unit Ketorolac Tromethamine (Ketorolac 0.5% Eye Drop) 1 drop OU BID [facility] Last Admin: 05/11/18 09:21 Dose: 1 drop Methylprednisolone Sodium Succinate (Solu-Medrol -) 40 mg IVPUSH Q6H-IV [facility] Last Admin: 05/11/18 09:14 Dose: 40 mg Non-Formulary Medication (Cyclosporine [Restasis]) 1 each OP BID SANEDEP Non-Formulary Medication (Fluticasone/Vilanterol [Breo Ellipta 200-25 Mcg Inh]) 1 each IH DAILY [facility] Non-Formulary Medication ([place]-3 Fatty Acids [Fish Oil]) 300 mg PO DAILY [facility] Pantoprazole Sodium (Protonix -) 40 mg PO BID [facility] Last Admin: 05/11/18 09:14 Dose: 40 mg Roflumilast (Daliresp -) 500 mcg PO DAILY [facility] Last Admin: 05/11/18 09:15 Dose: 500 mcg Tiotropium [place] (Spiriva Respimat) 2 puff IH DAILY [facility] Last Admin: 05/11/18 09:14 Dose: 2 puff - Objective Vital Signs: Vital Signs Temperature 98 F 05/11/18 08:50 Pulse Rate 95 H 05/11/18 08:50 Respiratory Rate 20 05/11/18 09:00 Blood Pressure 140/75 05/11/18 08:50 O2 Sat by Pulse Oximetry (%) 98 05/11/18 09:00 Constitutional: Yes: Well Nourished, Calm Eyes: Yes: WNL HENT: Yes: WNL Neck: Yes: WNL Cardiovascular: Yes: Regular Rate and Rhythm, S1, S2 Respiratory: Yes: Wheezes (SCATTERED CHANDAN WHEEZES) Gastrointestinal: Yes: Normal Bowel Sounds, Soft Extremities: Yes: WNL Edema: No Labs: CBC, BMP Assessment/Plan Problem List - Problems (1) Acute exacerbation of chronic obstructive pulmonary disease (COPD) Code(s): J44.1 - CHRONIC OBSTRUCTIVE PULMONARY DISEASE W (ACUTE) EXACERBATION (2) HLD (hyperlipidemia) Code(s): E78.5 - HYPERLIPIDEMIA, UNSPECIFIED (3) HTN (hypertension) Code(s): I10 - ESSENTIAL (PRIMARY) HYPERTENSION Qualifiers: Hypertension type: essential hypertension Qualified Code(s): I10 - Essential (primary) hypertension Assessment/Plan Acute COPD Exacerbation HTN Hypercholesterolemia - taper medrol - inhaled bronchodilators standing and PRN - O2 to keep SpO2>90% - daliresp - hopefully can get pt off prednisone as outpt and can check IgE, CBC, RAST as she has had eosinophilia in the past - DVT prophylaxis DR COLBERT
[2018-05-11] MEDS: DICYCLOMINE HCL 10 MG CAPSULE PO PRN ×2 (17:57→22:33)
[2018-05-11] MEDS: ATORVASTATIN CA 10 MG TABLET (FP) PO SCH (22:32)
[2018-05-11] MEDS: AMITRIPTYLINE HCL PO SCH (22:37)
[2018-05-12] MEDS: methylPREDNISolone NA SUCC 40 MG/1 ML VIAL IVPUSH SCH ×3 (03:00→21:13)
[2018-05-12 08:11] LABS: BASO % 0.1 % (0-2.0); HEMATOCRIT 33.2 % (32.4-45.2); HEMOGLOBIN 10.4 GM/dL (10.7-15.3); MCH 25.7 pg (25.7-33.7); MCHC 31.2 g/dl (32.0-36.0); MEAN CELL VOLUME 82.2 fl (80-96); MEAN PLT VOLUME 7.6 fl (7.5-11.1); MONO % 1.9 % (3.8-10.2); PLATELET COUNT 397 K/MM3 (134-434); RBC 4.04 M/mm3 (3.60-5.2); RDW 16.2 % (11.6-15.6); WHITE BLOOD COUNT 21.6 K/mm3 (4.0-10.0)
[2018-05-12] MEDS: ALBUTEROL SO4 2.5/IPRATROPIUM 0.5 INH SOL 3 ML VIAL.NEB. NEB SCH ×4 (08:46→19:45)
[2018-05-12 08:59] LABS: ALBUMIN 3.2 g/dl (3.4-5.0); ALK PHOS 74 U/L (45-117); ANION GAP 9 MMOL/L (8-16); BILIRUBIN,TOTAL 0.5 mg/dL (0.2-1); BLOOD UREA NITROGEN 24 mg/dL (7-18); CALCIUM 9.1 mg/dL (8.5-10.1); CHLORIDE 107 mmol/L (98-107); CO2 27 mmol/L (21-32); CREATININE 0.7 mg/dL (0.55-1.3); GLUCOSE,RANDOM 119 mg/dL (74-106); MAGNESIUM 2.2 mg/dL (1.8-2.4); POTASSIUM 4.2 mmol/L (3.5-5.1); SGOT/AST 12 U/L (15-37); SGPT/ALT 15 U/L (13-61); SODIUM 143 mmol/L (136-145); TOT PROT 5.8 g/dl (6.4-8.2)
--- NOTE | 2018-05-12 09:13 | PN ---
Progress Note (short form) - Note Progress Note: Events noted mild cough no palpitations Vital Signs - 24 hr 05/12/18 05/12/18 05/12/18 05:00 09:00 11:00 Temperature 98.8 F 98.2 F Pulse Rate 75 75 Respiratory 20 20 20 Rate Blood Pressure 113/58 L 132/80 O2 Sat by Pulse 99 Oximetry (%) 05/12/18 05/12/18 15:29 16:56 Temperature 98.4 F 98.0 F Pulse Rate 95 H 83 Respiratory 20 20 Rate Blood Pressure 111/56 L 132/67 O2 Sat by Pulse Oximetry (%) Current Medications Generic Name Dose Route Start Last Admin Trade Name Freq PRN Reason Stop Dose Admin Acetaminophen 650 mg 05/10/18 15:29 Tylenol - PO Q6H PRN PAIN SCALE 1-4 Albuterol/Ipratropium 1 amp 05/10/18 08:00 05/12/18 19:45 Duoneb - NEB 1 amp RQID [facility] Administration Amitriptyline HCl 25 mg/ 35 mg 05/10/18 22:00 05/12/18 21:12 Amitriptyline HCl 10 mg PO 35 mg HS [facility] Administration Artificial Tears 1 drop 05/10/18 15:29 05/12/18 10:13 Artificial Tears OU 1 drop Q8H PRN Administration DRY EYES Aspirin 81 mg 05/10/18 10:00 05/12/18 10:10 Asa - PO 81 mg DAILY [facility] Administration Atorvastatin Calcium 10 mg 05/10/18 03:25 05/12/18 21:13 Lipitor - PO 10 mg HS [facility] Administration Cholecalciferol 2,000 unit 05/10/18 10:00 05/12/18 10:10 Vitamin D3 - PO 2,000 unit DAILY [facility] Administration Clonazepam 0.5 mg 05/10/18 03:26 05/12/18 11:49 Klonopin - PO 0.5 mg DAILY PRN Administration ANXIETY Cyanocobalamin 1,000 mcg 05/10/18 10:00 05/12/18 10:10 Vitamin B12 - PO 1,000 mcg DAILY [facility] Administration Cyclobenzaprine HCl 5 mg 05/10/18 13:30 05/12/18 10:09 Flexeril - PO 5 mg DAILY [facility] Administration Dicyclomine HCl 20 mg 05/11/18 13:25 05/12/18 17:51 Bentyl - PO 20 mg Q4H PRN Administration PEPTIC ULCER Diltiazem HCl 180 mg 05/10/18 10:00 05/12/18 10:10 Cardizem Cd - PO 180 mg DAILY [facility] Administration Heparin Sodium (Porcine) 5,000 unit 05/10/18 10:00 05/12/18 21:13 Heparin - SQ Not Given BID [facility] Insulin Aspart 1 vial 05/12/18 11:00 05/12/18 16:14 Novolog Vial Sliding Scale - SQ Not Given TIDAC [facility] Protocol Ketorolac Tromethamine 1 drop 05/10/18 10:00 05/12/18 21:13 Ketorolac 0.5% Eye Drop OU 1 drop BID [facility] Administration Methylprednisolone Sodium Succinate 40 mg 05/12/18 13:00 05/12/18 21:13 Solu-Medrol - IVPUSH 40 mg Q8H [facility] Administration Non-Formulary Medication 1 each 05/10/18 10:00 Cyclosporine [Restasis] OP BID [facility] Non-Formulary Medication 1 each 05/10/18 10:00 Fluticasone/Vilanterol [Breo Ellipta 200-25 Mcg Inh] IH DAILY [facility] Non-Formulary Medication 300 mg 05/10/18 10:00 [place]-3 Fatty Acids [Fish Oil] PO DAILY [facility] Pantoprazole Sodium 40 mg 05/10/18 03:25 05/12/18 21:13 Protonix - PO 40 mg BID [facility] Administration Roflumilast 500 mcg 05/10/18 10:00 05/12/18 10:12 Daliresp - PO 500 mcg DAILY [facility] Administration Tiotropium [place] 2 puff 05/10/18 10:00 05/12/18 10:16 Spiriva Respimat IH 2 puff DAILY [facility] Administration Laboratory Results - last 24 hr 05/12/18 05/12/18 05/12/18 06:00 06:00 06:00 WBC 21.6 H RBC 4.04 Hgb 10.4 L Hct 33.2 MCV 82.2 MCH 25.7 MCHC 31.2 L RDW 16.2 H Plt Count 397 MPV 7.6 Absolute Neuts (auto) 20.3 H Neutrophils % 94.0 H Neutrophils % (Manual) 95.0 H Band Neutrophils % 0.0 Lymphocytes % 4.0 L D Lymphocytes % (Manual) 3.0 L D Monocytes % 1.9 L D Monocytes % (Manual) 2 L D Eosinophils % 0.0 Eosinophils % (Manual) 0.0 Basophils % 0.1 Basophils % (Manual) 0.0 Myelocytes % (Man) 0 Promyelocytes % (Man) 0 Blast Cells % (Manual) 0 Nucleated RBC % 0 Metamyelocytes 0 Hypochromia 0 Platelet Estimate Normal Polychromasia 1+ Poikilocytosis 1+ Anisocytosis 1+ Microcytosis 1+ Macrocytosis 0 Sodium 143 Potassium 4.2 Chloride 107 Carbon Dioxide 27 Anion Gap 9 BUN 24 H Creatinine 0.7 Creat Clearance w eGFR > 60 POC Glucometer Random Glucose 119 H Hemoglobin A1c % 6.5 H Calcium 9.1 Magnesium 2.2 Total Bilirubin 0.5 AST 12 L ALT 15 Alkaline Phosphatase 74 Total Protein 5.8 L Albumin 3.2 L 05/12/18 05/12/18 11:07 16:13 WBC RBC Hgb Hct MCV MCH MCHC RDW Plt Count MPV Absolute Neuts (auto) Neutrophils % Neutrophils % (Manual) Band Neutrophils % Lymphocytes % Lymphocytes % (Manual) Monocytes % Monocytes % (Manual) Eosinophils % Eosinophils % (Manual) Basophils % Basophils % (Manual) Myelocytes % (Man) Promyelocytes % (Man) Blast Cells % (Manual) Nucleated RBC % Metamyelocytes Hypochromia Platelet Estimate Polychromasia Poikilocytosis Anisocytosis Microcytosis Macrocytosis Sodium Potassium Chloride Carbon Dioxide Anion Gap BUN Creatinine Creat Clearance w eGFR POC Glucometer 208 120 Random Glucose Hemoglobin A1c % Calcium Magnesium Total Bilirubin AST ALT Alkaline Phosphatase Total Protein Albumin S1 S2 RRR Lungs decreased , ronchi B/L Abd- soft, NT ' No edema PLAN On IV Solumedrol check CT chest -- results noted Pulmonary eval appreciated nebs hold off antibiotics flexeril for back discomfort continue with meds Problem List - Problems (1) Acute exacerbation of chronic obstructive pulmonary disease (COPD) Code(s): J44.1 - CHRONIC OBSTRUCTIVE PULMONARY DISEASE W (ACUTE) EXACERBATION (2) COPD exacerbation Code(s): J44.1 - CHRONIC OBSTRUCTIVE PULMONARY DISEASE W (ACUTE) EXACERBATION (3) HLD (hyperlipidemia) Code(s): E78.5 - HYPERLIPIDEMIA, UNSPECIFIED (4) Anxiety Code(s): F41.9 - ANXIETY DISORDER, UNSPECIFIED (5) HTN (hypertension) Code(s): I10 - ESSENTIAL (PRIMARY) HYPERTENSION Qualifiers: Hypertension type: essential hypertension Qualified Code(s): I10 - Essential (primary) hypertension
[2018-05-12] MEDS: DICYCLOMINE HCL 10 MG CAPSULE PO PRN ×2 (10:08→17:51)
[2018-05-12] MEDS: CYCLOBENZAPRINE HCL 10 MG TABLET (FP) PO SCH (10:09)
[2018-05-12] MEDS: ASPIRIN 81 MG CHEWABLE TABLETS PO SCH (10:10)
[2018-05-12] MEDS: CHOLECALCIFEROL (VITAMIN D3) 1,000 UNIT TABLET (FP) PO SCH (10:10)
[2018-05-12] MEDS: CYANOCOBALAMIN 1,000 MCG TABLET (FP) PO SCH (10:10)
[2018-05-12] MEDS: PANTOPRAZOLE 40 MG TABLET (FP) PO SCH ×2 (10:10→21:13)
[2018-05-12] MEDS: ROFLUMILAST 500 MCG TABLET PO SCH (10:12)
[2018-05-12] MEDS: HEPARIN NA (PORCINE) 5,000 UNITS/ML 1ML VIAL SQ SCH ×2 (10:12→21:13)
[2018-05-12] MEDS: KETOROLAC TROMETHAMINE 0.5% EYE DROP 1 DROP DROPS OU SCH ×2 (10:13→21:13)
[2018-05-12] MEDS: ARTIFICIAL TEARS (POLYVINYL ALCOHOL) OPTH DROPS OU PRN (10:13)
[2018-05-12] MEDS: TIOTROPIUM BROMIDE 2.5 MCG (SPIRIVA) RESPIMAT INHALER IH SCH (10:16)
[2018-05-12 11:00] LABS: ANISOCYTOSIS 1+; MACROCYTOSIS 0; PLATELET ESTIMATE NORMAL
[2018-05-12] MEDS: INSULIN SLIDING SCALE (NOVOLOG) 1 VIAL SQ SCH ×2 (11:10→16:14)
--- NOTE | 2018-05-12 12:42 | PN ---
Progress Note, Physician History of Present Illness: pulmonary alert,feeling better,less congested - Current Medication List Current Medications: Active Medications Acetaminophen (Tylenol -) 650 mg PO Q6H PRN PRN Reason: PAIN SCALE 1-4 Albuterol/Ipratropium (Duoneb -) 1 amp NEB RQID [facility] Last Admin: 05/12/18 12:29 Dose: 1 amp Amitriptyline HCl 25 mg/ (Amitriptyline HCl 10 mg) 35 mg PO HS [facility] Last Admin: 05/11/18 22:37 Dose: 35 mg Artificial Tears (Artificial Tears) 1 drop OU Q8H PRN PRN Reason: DRY EYES Last Admin: 05/12/18 10:13 Dose: 1 drop Aspirin (Asa -) 81 mg PO DAILY [facility] Last Admin: 05/12/18 10:10 Dose: 81 mg Atorvastatin Calcium (Lipitor -) 10 mg PO HS [facility] Last Admin: 05/11/18 22:32 Dose: 10 mg Cholecalciferol (Vitamin D3 -) 2,000 unit PO DAILY [facility] Last Admin: 05/12/18 10:10 Dose: 2,000 unit Clonazepam (Klonopin -) 0.5 mg PO DAILY PRN PRN Reason: ANXIETY Last Admin: 05/12/18 11:49 Dose: 0.5 mg Cyanocobalamin (Vitamin B12 -) 1,000 mcg PO DAILY [facility] Last Admin: 05/12/18 10:10 Dose: 1,000 mcg Cyclobenzaprine HCl (Flexeril -) 5 mg PO DAILY [facility] Last Admin: 05/12/18 10:09 Dose: 5 mg Dicyclomine HCl (Bentyl -) 20 mg PO Q4H PRN PRN Reason: PEPTIC ULCER Last Admin: 05/12/18 10:08 Dose: 20 mg Diltiazem HCl (Cardizem Cd -) 180 mg PO DAILY [facility] Last Admin: 05/12/18 10:10 Dose: 180 mg Heparin Sodium (Porcine) (Heparin -) 5,000 unit SQ BID [facility] Last Admin: 05/12/18 10:12 Dose: 5,000 unit Insulin Aspart (Novolog Vial Sliding Scale -) 1 vial SQ TIDAC [facility]; Protocol Last Admin: 05/12/18 11:10 Dose: 4 units Ketorolac Tromethamine (Ketorolac 0.5% Eye Drop) 1 drop OU BID [facility] Last Admin: 05/12/18 10:13 Dose: 1 drop Methylprednisolone Sodium Succinate (Solu-Medrol -) 40 mg IVPUSH Q8H [facility] Non-Formulary Medication (Cyclosporine [Restasis]) 1 each OP BID [facility] Non-Formulary Medication (Fluticasone/Vilanterol [Breo Ellipta 200-25 Mcg Inh]) 1 each IH DAILY [facility] Non-Formulary Medication ([place]-3 Fatty Acids [Fish Oil]) 300 mg PO DAILY [facility] Pantoprazole Sodium (Protonix -) 40 mg PO BID [facility] Last Admin: 05/12/18 10:10 Dose: 40 mg Roflumilast (Daliresp -) 500 mcg PO DAILY [facility] Last Admin: 05/12/18 10:12 Dose: 500 mcg Tiotropium [place] (Spiriva Respimat) 2 puff IH DAILY [facility] Last Admin: 05/12/18 10:16 Dose: 2 puff - Objective Vital Signs: Vital Signs Temperature 98.2 F 05/12/18 11:00 Pulse Rate 75 05/12/18 11:00 Respiratory Rate 20 05/12/18 11:00 Blood Pressure 132/80 05/12/18 11:00 O2 Sat by Pulse Oximetry (%) 99 05/12/18 09:00 Constitutional: Yes: Well Nourished, Calm Eyes: Yes: WNL HENT: Yes: WNL Neck: Yes: WNL Cardiovascular: Yes: Regular Rate and Rhythm, S1, S2 Respiratory: Yes: Wheezes (scattered edson wheezes) Gastrointestinal: Yes: Normal Bowel Sounds, Soft Extremities: Yes: WNL Edema: No Labs: CBC, BMP 05/12/18 06:00 05/12/18 06:00 Assessment/Plan Problem List - Problems (1) Acute exacerbation of chronic obstructive pulmonary disease (COPD) Code(s): J44.1 - CHRONIC OBSTRUCTIVE PULMONARY DISEASE W (ACUTE) EXACERBATION (2) HLD (hyperlipidemia) Code(s): E78.5 - HYPERLIPIDEMIA, UNSPECIFIED (3) HTN (hypertension) Code(s): I10 - ESSENTIAL (PRIMARY) HYPERTENSION Qualifiers: Hypertension type: essential hypertension Qualified Code(s): I10 - Essential (primary) hypertension Assessment/Plan Acute COPD Exacerbation HTN Hypercholesterolemia - taper medrol - inhaled bronchodilators standing and PRN - O2 to keep SpO2>90% - daliresp - hopefully can get pt off prednisone as outpt and can check IgE, CBC, RAST as she has had eosinophilia in the past - DVT prophylaxis DR COLBERT
[2018-05-12] MEDS: AMITRIPTYLINE HCL PO SCH (21:12)
[2018-05-12] MEDS: ATORVASTATIN CA 10 MG TABLET (FP) PO SCH (21:13)
[2018-05-13] MEDS ORDERED: clonazePAM 0.5 MG TABLET PO ONE (00:01)
[2018-05-13] MEDS: methylPREDNISolone NA SUCC 40 MG/1 ML VIAL IVPUSH SCH ×3 (05:52→21:55)
[2018-05-13] MEDS: INSULIN SLIDING SCALE (NOVOLOG) 1 VIAL SQ SCH ×3 (06:06→17:08)
[2018-05-13] MEDS: metFORMIN HCL 500 MG TABLET (FP) PO SCH ×2 (06:53→16:37)
[2018-05-13] MEDS: ALBUTEROL SO4 2.5/IPRATROPIUM 0.5 INH SOL 3 ML VIAL.NEB. NEB SCH ×4 (08:15→20:25)
[2018-05-13] MEDS ORDERED: PT OWN MED DRAWER 7, Y5N ONE (09:17)
[2018-05-13] MEDS: ASPIRIN 81 MG CHEWABLE TABLETS PO SCH (09:58)
[2018-05-13] MEDS: CHOLECALCIFEROL (VITAMIN D3) 1,000 UNIT TABLET (FP) PO SCH (09:58)
[2018-05-13] MEDS: CYANOCOBALAMIN 1,000 MCG TABLET (FP) PO SCH (09:58)
[2018-05-13] MEDS: PANTOPRAZOLE 40 MG TABLET (FP) PO SCH ×2 (09:58→21:55)
[2018-05-13] MEDS: CYCLOBENZAPRINE HCL 10 MG TABLET (FP) PO SCH (09:58)
[2018-05-13] MEDS: ROFLUMILAST 500 MCG TABLET PO SCH (09:59)
[2018-05-13] MEDS: HEPARIN NA (PORCINE) 5,000 UNITS/ML 1ML VIAL SQ SCH ×2 (10:00→21:55)
[2018-05-13] MEDS: TIOTROPIUM BROMIDE 2.5 MCG (SPIRIVA) RESPIMAT INHALER IH SCH (10:04)
[2018-05-13] MEDS: KETOROLAC TROMETHAMINE 0.5% EYE DROP 1 DROP DROPS OU SCH ×2 (10:05→21:56)
[2018-05-13] MEDS: DICYCLOMINE HCL 10 MG CAPSULE PO PRN ×2 (10:50→22:11)
--- NOTE | 2018-05-13 12:19 | PN ---
Progress Note (short form) - Note Progress Note: Events noted Feels tired, wants to get B12 checked Also she has eccymosis over thighs, has body pains Vital Signs - 24 hr 05/12/18 05/12/18 05/12/18 16:56 21:00 22:00 Temperature 98.0 F 98.3 F Pulse Rate 83 99 H Respiratory 20 22 H 22 H Rate Blood Pressure 132/67 120/59 L O2 Sat by Pulse 99 Oximetry (%) 05/13/18 05/13/18 05/13/18 04:00 09:00 10:00 Temperature 97.8 F 98.2 F Pulse Rate 75 97 H Respiratory 22 H 22 H 22 H Rate Blood Pressure 120/68 134/72 O2 Sat by Pulse 93 L Oximetry (%) 05/13/18 14:48 Temperature 97.9 F Pulse Rate 99 H Respiratory 20 Rate Blood Pressure 132/79 O2 Sat by Pulse Oximetry (%) Current Medications Generic Name Dose Route Start Last Admin Trade Name Freq PRN Reason Stop Dose Admin Acetaminophen 650 mg 05/10/18 15:29 Tylenol - PO Q6H PRN PAIN SCALE 1-4 Albuterol/Ipratropium 1 amp 05/10/18 08:00 05/13/18 12:04 Duoneb - NEB 1 amp RQID [facility] Administration Amitriptyline HCl 25 mg/ 35 mg 05/10/18 22:00 05/12/18 21:12 Amitriptyline HCl 10 mg PO 35 mg HS [facility] Administration Artificial Tears 1 drop 05/10/18 15:29 05/12/18 10:13 Artificial Tears OU 1 drop Q8H PRN Administration DRY EYES Aspirin 81 mg 05/10/18 10:00 05/13/18 09:58 Asa - PO 81 mg DAILY [facility] Administration Atorvastatin Calcium 10 mg 05/10/18 03:25 05/12/18 21:13 Lipitor - PO 10 mg HS [facility]EP Administration Cholecalciferol 2,000 unit 05/10/18 10:00 05/13/18 09:58 Vitamin D3 - PO 2,000 unit DAILY [facility] Administration Clonazepam 0.5 mg 05/13/18 12:41 Klonopin - PO Q12H PRN ANXIETY Cyanocobalamin 1,000 mcg 05/10/18 10:00 05/13/18 09:58 Vitamin B12 - PO 1,000 mcg DAILY [facility] Administration Cyclobenzaprine HCl 5 mg 05/10/18 13:30 05/13/18 09:58 Flexeril - PO 5 mg DAILY [facility] Administration Dicyclomine HCl 20 mg 05/11/18 13:25 05/13/18 10:50 Bentyl - PO 20 mg Q4H PRN Administration PEPTIC ULCER Diltiazem HCl 180 mg 05/10/18 10:00 05/13/18 09:59 Cardizem Cd - PO 180 mg DAILY [facility] Administration Heparin Sodium (Porcine) 5,000 unit 05/10/18 10:00 05/13/18 10:00 Heparin - SQ 5,000 unit BID [facility] Administration Insulin Aspart 1 vial 05/12/18 11:00 05/13/18 12:41 Novolog Vial Sliding Scale - SQ Not Given TIDAC [facility] Protocol Ketorolac Tromethamine 1 drop 05/10/18 10:00 05/13/18 10:05 Ketorolac 0.5% Eye Drop OU 1 drop BID [facility] Administration Metformin HCl 500 mg 05/13/18 07:00 05/13/18 06:53 Glucophage - PO 500 mg BID@0700,1630 [facility] Administration Methylprednisolone Sodium Succinate 40 mg 05/12/18 13:00 05/13/18 13:58 Solu-Medrol - IVPUSH 40 mg Q8H [facility] Administration Non-Formulary Medication 1 each 05/10/18 10:00 Cyclosporine [Restasis] OP BID [facility] Non-Formulary Medication 1 each 05/10/18 10:00 Fluticasone/Vilanterol [Breo Ellipta 200-25 Mcg Inh] IH DAILY [facility] Non-Formulary Medication 300 mg 05/10/18 10:00 [place]-3 Fatty Acids [Fish Oil] PO DAILY [facility] Pantoprazole Sodium 40 mg 05/10/18 03:25 05/13/18 09:58 Protonix - PO 40 mg BID [facility] Administration Roflumilast 500 mcg 05/10/18 10:00 05/13/18 09:59 Daliresp - PO 500 mcg DAILY [facility] Administration Tiotropium [place] 2 puff 05/10/18 10:00 05/13/18 10:04 Spiriva Respimat IH 2 puff DAILY [facility]DEEP Administration Laboratory Results - last 24 hr 09/22/18 09/23/18 09/23/18 16:13 05:58 11:50 POC Glucometer 120 150 105 Vitamin B12 05/13/18 13:20 POC Glucometer Vitamin B12 2945 H S1 S2 RRR Lungs decreased , marshall B/L Abd- soft, NT ' No edema PLAN On IV Solumedrol check CT chest -- results noted Pulmonary eval appreciated nebs start Metformin hold off antibiotics flexeril for back discomfort continue with meds Problem List - Problems (1) Acute exacerbation of chronic obstructive pulmonary disease (COPD) Code(s): J44.1 - CHRONIC OBSTRUCTIVE PULMONARY DISEASE W (ACUTE) EXACERBATION (2) COPD exacerbation Code(s): J44.1 - CHRONIC OBSTRUCTIVE PULMONARY DISEASE W (ACUTE) EXACERBATION (3) HLD (hyperlipidemia) Code(s): E78.5 - HYPERLIPIDEMIA, UNSPECIFIED (4) Anxiety Code(s): F41.9 - ANXIETY DISORDER, UNSPECIFIED (5) HTN (hypertension) Code(s): I10 - ESSENTIAL (PRIMARY) HYPERTENSION Qualifiers: Hypertension type: essential hypertension Qualified Code(s): I10 - Essential (primary) hypertension
[2018-05-13] MEDS ORDERED: clonazePAM 0.5 MG TABLET PO PRN (12:41)
--- NOTE | 2018-05-13 14:14 | PN ---
Progress Note, Physician History of Present Illness: PULMONARY ALERT,C/O CHEST TIGHTNESS, + WHEEZES - Current Medication List Current Medications: Active Medications Acetaminophen (Tylenol -) 650 mg PO Q6H PRN PRN Reason: PAIN SCALE 1-4 Albuterol/Ipratropium (Duoneb -) 1 amp NEB RQID [facility] Last Admin: 05/13/18 12:04 Dose: 1 amp Amitriptyline HCl 25 mg/ (Amitriptyline HCl 10 mg) 35 mg PO [facility] Last Admin: 05/12/18 21:12 Dose: 35 mg Artificial Tears (Artificial Tears) 1 drop OU Q8H PRN PRN Reason: DRY EYES Last Admin: 05/12/18 10:13 Dose: 1 drop Aspirin (Asa -) 81 mg PO DAILY [facility] Last Admin: 05/13/18 09:58 Dose: 81 mg Atorvastatin Calcium (Lipitor -) 10 mg PO HS [facility] Last Admin: 05/12/18 21:13 Dose: 10 mg Cholecalciferol (Vitamin D3 -) 2,000 unit PO DAILY [facility] Last Admin: 05/13/18 09:58 Dose: 2,000 unit Clonazepam (Klonopin -) 0.5 mg PO Q12H PRN PRN Reason: ANXIETY Cyanocobalamin (Vitamin B12 -) 1,000 mcg PO DAILY [facility] Last Admin: 05/13/18 09:58 Dose: 1,000 mcg Cyclobenzaprine HCl (Flexeril -) 5 mg PO DAILY [facility] Last Admin: 05/13/18 09:58 Dose: 5 mg Dicyclomine HCl (Bentyl -) 20 mg PO Q4H PRN PRN Reason: PEPTIC ULCER Last Admin: 05/13/18 10:50 Dose: 20 mg Diltiazem HCl (Cardizem Cd -) 180 mg PO DAILY [facility] Last Admin: 05/13/18 09:59 Dose: 180 mg Heparin Sodium (Porcine) (Heparin -) 5,000 unit SQ BID [facility] Last Admin: 05/13/18 10:00 Dose: 5,000 unit Insulin Aspart (Novolog Vial Sliding Scale -) 1 vial SQ TIDAC [facility]; Protocol Last Admin: 05/13/18 12:41 Dose: Not Given Ketorolac Tromethamine (Ketorolac 0.5% Eye Drop) 1 drop OU BID [facility] Last Admin: 09/23/18 10:05 Dose: 1 drop Metformin HCl (Glucophage -) 500 mg PO BID@0700,1630 [facility] Last Admin: 05/13/18 06:53 Dose: 500 mg Methylprednisolone Sodium Succinate (Solu-Medrol -) 40 mg IVPUSH Q8H [facility] Last Admin: 05/13/18 13:58 Dose: 40 mg Non-Formulary Medication (Cyclosporine [Restasis]) 1 each OP BID [facility] Non-Formulary Medication (Fluticasone/Vilanterol [Breo Ellipta 200-25 Mcg Inh]) 1 each IH DAILY [facility] Non-Formulary Medication ([place]-3 Fatty Acids [Fish Oil]) 300 mg PO DAILY [facility] Pantoprazole Sodium (Protonix -) 40 mg PO BID [facility] Last Admin: 05/13/18 09:58 Dose: 40 mg Roflumilast (Daliresp -) 500 mcg PO DAILY [facility] Last Admin: 05/13/18 09:59 Dose: 500 mcg Tiotropium [place] (Spiriva Respimat) 2 puff IH DAILY [facility] Last Admin: 05/13/18 10:04 Dose: 2 puff - Objective Vital Signs: Vital Signs Temperature 98.2 F 05/13/18 09:00 Pulse Rate 97 H 05/13/18 09:00 Respiratory Rate 22 H 05/13/18 10:00 Blood Pressure 134/72 05/13/18 09:00 O2 Sat by Pulse Oximetry (%) 93 L 05/13/18 10:00 Constitutional: Yes: Well Nourished, Calm Eyes: Yes: WNL HENT: Yes: WNL Neck: Yes: WNL Cardiovascular: Yes: Regular Rate and Rhythm, S1, S2 Respiratory: Yes: Wheezes (SCATTERED CHANDAN WHEEZES) Gastrointestinal: Yes: Normal Bowel Sounds, Soft Extremities: Yes: WNL Edema: No Labs: CBC, BMP Assessment/Plan Problem List - Problems (1) Acute exacerbation of chronic obstructive pulmonary disease (COPD) Code(s): J44.1 - CHRONIC OBSTRUCTIVE PULMONARY DISEASE W (ACUTE) EXACERBATION (2) HLD (hyperlipidemia) Code(s): E78.5 - HYPERLIPIDEMIA, UNSPECIFIED (3) HTN (hypertension) Code(s): I10 - ESSENTIAL (PRIMARY) HYPERTENSION Qualifiers: Hypertension type: essential hypertension Qualified Code(s): I10 - Essential (primary) hypertension Assessment/Plan Acute COPD Exacerbation HTN Hypercholesterolemia - medrol same dose - inhaled bronchodilators standing and PRN - O2 to keep SpO2>90% - daliresp - hopefully can get pt off prednisone as outpt and can check IgE, CBC, RAST as she has had eosinophilia in the past - DVT prophylaxis DR COLBERT
[2018-05-13] MEDS: ATORVASTATIN CA 10 MG TABLET (FP) PO SCH (21:55)
[2018-05-13] MEDS: AMITRIPTYLINE HCL PO SCH (21:56)
[2018-05-14] MEDS: methylPREDNISolone NA SUCC 40 MG/1 ML VIAL IVPUSH SCH ×2 (05:53→21:58)
[2018-05-14] MEDS: INSULIN SLIDING SCALE (NOVOLOG) 1 VIAL SQ SCH ×3 (06:09→16:40)
[2018-05-14] MEDS: metFORMIN HCL 500 MG TABLET (FP) PO SCH ×2 (06:51→17:50)
[2018-05-14 07:24] LABS: HEMOGLOBIN 10.4 GM/dL (10.7-15.3); MCH 25.8 pg (25.7-33.7); MCHC 31.6 g/dl (32.0-36.0); MEAN CELL VOLUME 81.7 fl (80-96); MEAN PLT VOLUME 7.5 fl (7.5-11.1); PLATELET COUNT 368 K/MM3 (134-434); RBC 4.03 M/mm3 (3.60-5.2); RDW 16.1 % (11.6-15.6); WHITE BLOOD COUNT 13.6 K/mm3 (4.0-10.0)
[2018-05-14] MEDS: ALBUTEROL SO4 2.5/IPRATROPIUM 0.5 INH SOL 3 ML VIAL.NEB. NEB SCH (07:53)
[2018-05-14 08:18] LABS: ALBUMIN 2.8 g/dl (3.4-5.0); ALK PHOS 74 U/L (45-117); ANION GAP 7 MMOL/L (8-16); BILIRUBIN,TOTAL 0.4 mg/dL (0.2-1); BLOOD UREA NITROGEN 24 mg/dL (7-18); CALCIUM 8.4 mg/dL (8.5-10.1); CHLORIDE 106 mmol/L (98-107); CO2 29 mmol/L (21-32); CREATININE 0.7 mg/dL (0.55-1.3); GLUCOSE,RANDOM 107 mg/dL (74-106); POTASSIUM 3.9 mmol/L (3.5-5.1); SGOT/AST 8 U/L (15-37); SGPT/ALT 18 U/L (13-61); SODIUM 142 mmol/L (136-145); TOT PROT 5.5 g/dl (6.4-8.2)
[2018-05-14] MEDS ORDERED: PT OWN MED DRAWER 7, Y5N ONE ×2 (09:18→21:43)
[2018-05-14] MEDS: CYANOCOBALAMIN 1,000 MCG TABLET (FP) PO SCH (09:26)
[2018-05-14] MEDS: ASPIRIN 81 MG CHEWABLE TABLETS PO SCH (09:27)
[2018-05-14] MEDS: CYCLOBENZAPRINE HCL 10 MG TABLET (FP) PO SCH (09:27)
[2018-05-14] MEDS: PANTOPRAZOLE 40 MG TABLET (FP) PO SCH ×2 (09:28→21:58)
[2018-05-14] MEDS: CHOLECALCIFEROL (VITAMIN D3) 1,000 UNIT TABLET (FP) PO SCH (09:29)
[2018-05-14] MEDS: HEPARIN NA (PORCINE) 5,000 UNITS/ML 1ML VIAL SQ SCH ×2 (09:29→21:58)
[2018-05-14] MEDS: DICYCLOMINE HCL 10 MG CAPSULE PO PRN ×2 (09:29→14:48)
[2018-05-14] MEDS: ROFLUMILAST 500 MCG TABLET PO SCH (09:29)
[2018-05-14] MEDS: KETOROLAC TROMETHAMINE 0.5% EYE DROP 1 DROP DROPS OU SCH ×2 (09:30→22:11)
[2018-05-14] MEDS: TIOTROPIUM BROMIDE 2.5 MCG (SPIRIVA) RESPIMAT INHALER IH SCH (09:30)
--- NOTE | 2018-05-14 10:49 | PN ---
Progress Note (short form) - Note Progress Note: PULMONARY Feeling better. Still some wheezing. +nonproductive cough. Vital Signs Period Temp Pulse Resp BP Sys/[place] Pulse Ox Last 24 Hr 97.8 F-98.3 F 68-99 20-22 120-137/64-79 93 Gen: NAD at rest Heart: RRR Lung: decreased breath sounds at the bases Abd: soft, nontender Ext: no edema CBC, BMP 05/14/18 06:15 05/14/18 06:15 Active Medications Acetaminophen (Tylenol -) 650 mg PO Q6H PRN PRN Reason: PAIN SCALE 1-4 Albuterol/Ipratropium (Duoneb -) 1 amp NEB RQID [facility] Last Admin: 05/14/18 07:53 Dose: Not Given Amitriptyline HCl 25 mg/ (Amitriptyline HCl 10 mg) 35 mg PO HS [facility] Last Admin: 05/13/18 21:56 Dose: 35 mg Artificial Tears (Artificial Tears) 1 drop OU Q8H PRN PRN Reason: DRY EYES Last Admin: 05/12/18 10:13 Dose: 1 drop Aspirin (Asa -) 81 mg PO DAILY [facility] Last Admin: 05/14/18 09:27 Dose: 81 mg Atorvastatin Calcium (Lipitor -) 10 mg PO HS [facility] Last Admin: 05/13/18 21:55 Dose: 10 mg Cholecalciferol (Vitamin D3 -) 2,000 unit PO DAILY [facility] Last Admin: 05/14/18 09:29 Dose: 2,000 unit Clonazepam (Klonopin -) 0.5 mg PO Q12H PRN PRN Reason: ANXIETY Cyanocobalamin (Vitamin B12 -) 1,000 mcg PO DAILY [facility] Last Admin: 05/14/18 09:26 Dose: 1,000 mcg Cyclobenzaprine HCl (Flexeril -) 5 mg PO DAILY [facility] Last Admin: 05/14/18 09:27 Dose: 5 mg Dicyclomine HCl (Bentyl -) 20 mg PO Q4H PRN PRN Reason: PEPTIC ULCER Last Admin: 05/14/18 09:29 Dose: 20 mg Diltiazem HCl (Cardizem Cd -) 180 mg PO DAILY [facility] Last Admin: 05/14/18 09:26 Dose: 180 mg Heparin Sodium (Porcine) (Heparin -) 5,000 unit SQ BID [facility] Last Admin: 05/14/18 09:29 Dose: 5,000 unit Insulin Aspart (Novolog Vial Sliding Scale -) 1 vial SQ TIDAC [facility]; Protocol Last Admin: 05/14/18 06:09 Dose: Not Given Ketorolac Tromethamine (Ketorolac 0.5% Eye Drop) 1 drop OU BID [facility] Last Admin: 05/14/18 09:30 Dose: 1 drop Metformin HCl (Glucophage -) 500 mg PO BID@0700,1630 [facility] Last Admin: 05/14/18 06:51 Dose: 500 mg Methylprednisolone Sodium Succinate (Solu-Medrol -) 40 mg IVPUSH Q8H [facility] Last Admin: 05/14/18 05:53 Dose: 40 mg Non-Formulary Medication (Cyclosporine [Restasis]) 1 each OP BID [facility] Non-Formulary Medication (Fluticasone/Vilanterol [Breo Ellipta 200-25 Mcg Inh]) 1 each IH DAILY [facility] Non-Formulary Medication ([place]-3 Fatty Acids [Fish Oil]) 300 mg PO DAILY [facility] Pantoprazole Sodium (Protonix -) 40 mg PO BID [facility] Last Admin: 05/14/18 09:28 Dose: 40 mg Roflumilast (Daliresp -) 500 mcg PO DAILY [facility] Last Admin: 05/14/18 09:29 Dose: 500 mcg Tiotropium [place] (Spiriva Respimat) 2 puff IH DAILY [facility] Last Admin: 05/14/18 09:30 Dose: 2 puff A/P Acute COPD Exacerbation HTN Hypercholesterolemia - will decrease medrol to q12h, can likely change to PO in AM - inhaled bronchodilators standing and PRN - O2 to keep SpO2>90% - daliresp - outpt IgE, CBC, RAST when off steroids - DVT prophylaxis Problem List - Problems (1) Acute exacerbation of chronic obstructive pulmonary disease (COPD) Code(s): J44.1 - CHRONIC OBSTRUCTIVE PULMONARY DISEASE W (ACUTE) EXACERBATION (2) HLD (hyperlipidemia) Code(s): E78.5 - HYPERLIPIDEMIA, UNSPECIFIED (3) HTN (hypertension) Code(s): I10 - ESSENTIAL (PRIMARY) HYPERTENSION Qualifiers: Hypertension type: essential hypertension Qualified Code(s): I10 - Essential (primary) hypertension
[2018-05-14] MEDS: ALBUTEROL SO4 0.083% IH SOL 2.5 MG/3 ML VIAL.NEB. NEB SCH ×3 (11:29→20:59)
--- NOTE | 2018-05-14 11:32 | PN ---
Progress Note (short form) - Note Progress Note: pt seen/ examined chart reviewed anxious no distress Vital Signs Temp 97.8 F 05/14/18 06:00 Pulse 71 05/14/18 06:00 Resp 20 05/14/18 06:00 BP 123/66 05/14/18 06:00 Pulse Ox 93 L 05/13/18 21:00 Intake & Output 05/13/18 05/13/18 05/14/18 11:59 23:59 11:59 Intake Total 350 250 Balance 350 250 Intake: IVPB 0 Oral 350 250 Other: Voiding Method Toilet Toilet Toilet # Unmeasured Voids Void 2 Bowel Movement No Active Medications Acetaminophen (Tylenol -) 650 mg PO Q6H PRN PRN Reason: PAIN SCALE 1-4 Albuterol Sulfate (Ventolin 0.083% Nebulizer Soln -) 1 amp NEB RQID [facility] Last Admin: 05/14/18 11:29 Dose: Not Given Amitriptyline HCl 25 mg/ (Amitriptyline HCl 10 mg) 35 mg PO [facility] Last Admin: 05/13/18 21:56 Dose: 35 mg Artificial Tears (Artificial Tears) 1 drop OU Q8H PRN PRN Reason: DRY EYES Last Admin: 05/12/18 10:13 Dose: 1 drop Aspirin (Asa -) 81 mg PO DAILY [facility] Last Admin: 05/14/18 09:27 Dose: 81 mg Atorvastatin Calcium (Lipitor -) 10 mg PO [facility] Last Admin: 05/13/18 21:55 Dose: 10 mg Cholecalciferol (Vitamin D3 -) 2,000 unit PO DAILY [facility] Last Admin: 05/14/18 09:29 Dose: 2,000 unit Clonazepam (Klonopin -) 0.5 mg PO Q12H PRN PRN Reason: ANXIETY Cyanocobalamin (Vitamin B12 -) 1,000 mcg PO DAILY [facility] Last Admin: 05/14/18 09:26 Dose: 1,000 mcg Cyclobenzaprine HCl (Flexeril -) 5 mg PO DAILY [facility] Last Admin: 05/14/18 09:27 Dose: 5 mg Dicyclomine HCl (Bentyl -) 20 mg PO Q4H PRN PRN Reason: PEPTIC ULCER Last Admin: 05/14/18 09:29 Dose: 20 mg Diltiazem HCl (Cardizem Cd -) 180 mg PO DAILY [facility] Last Admin: 05/14/18 09:26 Dose: 180 mg Heparin Sodium (Porcine) (Heparin -) 5,000 unit SQ BID [facility] Last Admin: 05/14/18 09:29 Dose: 5,000 unit Insulin Aspart (Novolog Vial Sliding Scale -) 1 vial SQ TIDAC [facility]; Protocol Last Admin: 05/14/18 06:09 Dose: Not Given Ketorolac Tromethamine (Ketorolac 0.5% Eye Drop) 1 drop OU BID [facility] Last Admin: 05/14/18 09:30 Dose: 1 drop Metformin HCl (Glucophage -) 500 mg PO BID@0700,1630 [facility] Last Admin: 05/14/18 06:51 Dose: 500 mg Methylprednisolone Sodium Succinate (Solu-Medrol -) 40 mg IVPUSH Q12H [facility] Non-Formulary Medication (Cyclosporine [Restasis]) 1 each OP BID [facility] Non-Formulary Medication (Fluticasone/Vilanterol [Breo Ellipta 200-25 Mcg Inh]) 1 each IH DAILY [facility] Non-Formulary Medication ([place]-3 Fatty Acids [Fish Oil]) 300 mg PO DAILY [facility] Pantoprazole Sodium (Protonix -) 40 mg PO BID [facility] Last Admin: 05/14/18 09:28 Dose: 40 mg Roflumilast (Daliresp -) 500 mcg PO DAILY [facility] Last Admin: 05/14/18 09:29 Dose: 500 mcg Tiotropium Scenic (Spiriva Respimat) 2 puff IH DAILY [facility] Last Admin: 05/14/18 09:30 Dose: 2 puff CBC, BMP 05/14/18 06:15 05/14/18 06:15 Physical Exam S1 S2 RRR Lungs -- scattered rhonchi-- Abd- soft, NT ' No edema Anxious PLAN On IV Solumedrol-- tapering CT chest --copd Pulmonary eval - noted/ discussed with dr Lugo-- Anticipate d/c in am neb continue with meds will follow Problem List - Problems (1) Acute exacerbation of chronic obstructive pulmonary disease (COPD) Code(s): J44.1 - CHRONIC OBSTRUCTIVE PULMONARY DISEASE W (ACUTE) EXACERBATION (2) Abdominal pain Code(s): R10.9 - UNSPECIFIED ABDOMINAL PAIN (3) Anxiety Code(s): F41.9 - ANXIETY DISORDER, UNSPECIFIED (4) HTN (hypertension) Code(s): I10 - ESSENTIAL (PRIMARY) HYPERTENSION Qualifiers: Hypertension type: essential hypertension Qualified Code(s): I10 - Essential (primary) hypertension
[2018-05-14] MEDS ORDERED: INSULIN (NOVOLOG) ASPART 100 UNITS/ML 10ML VIAL ONE (19:13)
[2018-05-14] MEDS: ATORVASTATIN CA 10 MG TABLET (FP) PO SCH (21:58)
[2018-05-14] MEDS: AMITRIPTYLINE HCL PO SCH (21:58)
[2018-05-15] MEDS: DICYCLOMINE HCL 10 MG CAPSULE PO PRN (02:07)
[2018-05-15] MEDS: metFORMIN HCL 500 MG TABLET (FP) PO SCH (06:51)
[2018-05-15] MEDS: INSULIN SLIDING SCALE (NOVOLOG) 1 VIAL SQ SCH ×2 (06:52→11:19)
[2018-05-15] MEDS ORDERED: INSULIN (NOVOLOG) ASPART 100 UNITS/ML 10ML VIAL ONE (06:54)
[2018-05-15] MEDS: ALBUTEROL SO4 0.083% IH SOL 2.5 MG/3 ML VIAL.NEB. NEB SCH ×2 (07:38→12:29)
[2018-05-15] MEDS ORDERED: PT OWN MED DRAWER 7, Y5N ONE (09:52)
[2018-05-15] MEDS: ASPIRIN 81 MG CHEWABLE TABLETS PO SCH (10:11)
[2018-05-15] MEDS: PANTOPRAZOLE 40 MG TABLET (FP) PO SCH (10:11)
[2018-05-15] MEDS: CYCLOBENZAPRINE HCL 10 MG TABLET (FP) PO SCH (10:12)
[2018-05-15] MEDS: CHOLECALCIFEROL (VITAMIN D3) 1,000 UNIT TABLET (FP) PO SCH (10:12)
[2018-05-15] MEDS: ROFLUMILAST 500 MCG TABLET PO SCH (10:12)
[2018-05-15] MEDS: CYANOCOBALAMIN 1,000 MCG TABLET (FP) PO SCH (10:12)
[2018-05-15] MEDS: HEPARIN NA (PORCINE) 5,000 UNITS/ML 1ML VIAL SQ SCH (10:12)
[2018-05-15] MEDS: methylPREDNISolone NA SUCC 40 MG/1 ML VIAL IVPUSH SCH (10:13)
[2018-05-15] MEDS: KETOROLAC TROMETHAMINE 0.5% EYE DROP 1 DROP DROPS OU SCH (10:13)
[2018-05-15] MEDS: TIOTROPIUM BROMIDE 2.5 MCG (SPIRIVA) RESPIMAT INHALER IH SCH (10:13)
--- NOTE | 2018-05-15 10:58 | PN ---
Progress Note (short form) - Note Progress Note: PULMONARY Breathing continues to improve. Still some wheezing. +nonproductive cough. Vital Signs Period Temp Pulse Resp BP Sys/Jordan Pulse Ox Last 24 Hr 98.3 F-984 F 66-88 18-20 124-134/53-80 93 Gen: NAD at rest Heart: RRR Lung: decreased breath sounds at the bases Abd: soft, nontender Ext: no edema CBC, BMP 05/14/18 06:15 05/14/18 06:15 Active Medications Acetaminophen (Tylenol -) 650 mg PO Q6H PRN PRN Reason: PAIN SCALE 1-4 Albuterol Sulfate (Ventolin 0.083% Nebulizer Soln -) 1 amp NEB RQID [facility] Last Admin: 05/15/18 07:38 Dose: 1 amp Amitriptyline HCl 25 mg/ (Amitriptyline HCl 10 mg) 35 mg PO HS [facility] Last Admin: 05/14/18 21:58 Dose: 35 mg Artificial Tears (Artificial Tears) 1 drop OU Q8H PRN PRN Reason: DRY EYES Last Admin: 05/12/18 10:13 Dose: 1 drop Aspirin (Asa -) 81 mg PO DAILY [facility] Last Admin: 05/15/18 10:11 Dose: 81 mg Atorvastatin Calcium (Lipitor -) 10 mg PO HS [facility] Last Admin: 05/14/18 21:58 Dose: 10 mg Cholecalciferol (Vitamin D3 -) 2,000 unit PO DAILY [facility] Last Admin: 05/15/18 10:12 Dose: 2,000 unit Clonazepam (Klonopin -) 0.5 mg PO Q12H PRN PRN Reason: ANXIETY Cyanocobalamin (Vitamin B12 -) 1,000 mcg PO DAILY [facility] Last Admin: 05/15/18 10:12 Dose: 1,000 mcg Cyclobenzaprine HCl (Flexeril -) 5 mg PO DAILY [facility] Last Admin: 05/15/18 10:12 Dose: 5 mg Dicyclomine HCl (Bentyl -) 20 mg PO Q4H PRN PRN Reason: PEPTIC ULCER Last Admin: 05/15/18 02:07 Dose: 20 mg Diltiazem HCl (Cardizem Cd -) 180 mg PO DAILY [facility] Last Admin: 05/15/18 10:12 Dose: 180 mg Heparin Sodium (Porcine) (Heparin -) 5,000 unit SQ BID [facility] Last Admin: 05/15/18 10:12 Dose: 5,000 unit Insulin Aspart (Novolog Vial Sliding Scale -) 1 vial SQ TIDAC [facility]; Protocol Last Admin: 05/15/18 06:52 Dose: Not Given Ketorolac Tromethamine (Ketorolac 0.5% Eye Drop) 1 drop OU BID [facility] Last Admin: 05/15/18 10:13 Dose: 1 drop Metformin HCl (Glucophage -) 500 mg PO BID@0700,1630 [facility] Last Admin: 05/15/18 06:51 Dose: 500 mg Methylprednisolone Sodium Succinate (Solu-Medrol -) 40 mg IVPUSH BID [facility] Last Admin: 05/15/18 10:13 Dose: 40 mg Non-Formulary Medication (Cyclosporine [Restasis]) 1 each OP BID [facility] Non-Formulary Medication (Fluticasone/Vilanterol [Breo Ellipta 200-25 Mcg Inh]) 1 each IH DAILY [facility] Non-Formulary Medication ([place]-3 Fatty Acids [Fish Oil]) 300 mg PO DAILY [facility] Pantoprazole Sodium (Protonix -) 40 mg PO BID [facility] Last Admin: 05/15/18 10:11 Dose: 40 mg Roflumilast (Daliresp -) 500 mcg PO DAILY [facility] Last Admin: 05/15/18 10:12 Dose: 500 mcg Tiotropium Henry (Spiriva Respimat) 2 puff IH DAILY [facility] Last Admin: 05/15/18 10:13 Dose: 2 puff A/P Acute COPD Exacerbation HTN Hypercholesterolemia - will change steroids to PO prednisone 40mg daily and taper by 10mg q3 days as outpt - inhaled bronchodilators standing and PRN - O2 to keep SpO2>90% - daliresp - outpt IgE, CBC, RAST when off steroids - DVT prophylaxis - can be discharged from pulmonary standpoint Problem List - Problems (1) Acute exacerbation of chronic obstructive pulmonary disease (COPD) Code(s): J44.1 - CHRONIC OBSTRUCTIVE PULMONARY DISEASE W (ACUTE) EXACERBATION (2) HLD (hyperlipidemia) Code(s): E78.5 - HYPERLIPIDEMIA, UNSPECIFIED (3) HTN (hypertension) Code(s): I10 - ESSENTIAL (PRIMARY) HYPERTENSION Qualifiers: Hypertension type: essential hypertension Qualified Code(s): I10 - Essential (primary) hypertension
--- NOTE | 2018-05-15 11:51 | DS ---
Physical Examination Vital Signs: Vital Signs Temperature 98.4 F 05/15/18 05:57 Pulse Rate 72 05/15/18 05:57 Respiratory Rate 20 05/15/18 05:57 Blood Pressure 127/65 05/15/18 05:57 O2 Sat by Pulse Oximetry (%) 100 05/15/18 10:05 Constitutional: Yes: No Distress, Calm Cardiovascular: Yes: Regular Rate and Rhythm Respiratory: Yes: Diminished Gastrointestinal: Yes: Normal Bowel Sounds, Soft. No: Tenderness Edema: No Labs: CBC, BMP 05/14/18 06:15 05/14/18 06:15 Discharge Summary Reason For Visit: ACUTE EXACERBATION COPD (MRSA) Current Active Problems Acute exacerbation of chronic obstructive pulmonary disease (COPD) (Acute) COPD exacerbation (Acute) HLD (hyperlipidemia) (Acute) Hospital Course: ADmitted for copd EXACERBATION Seen byPulmonary Started on IV Solumedrol Tapered feels well stable for dc home on po prednisone Condition: Fair - Instructions Referrals: Cristal Ludwig MD [Primary Care Provider] - Kd Lugo MD, MD [Staff Physician] - Disposition: HOME - Home Medications Comprehensive Discharge Medication List: Ambulatory Orders Atorvastatin Ca [Lipitor] 10 mg PO HS 06/24/15 Roflumilast [Daliresp] 500 mcg PO DAILY 06/24/15 Cyanocobalamin [Vitamin B12 -] 1,000 mcg PO DAILY tablet 03/28/16 Amitriptyline HCl [Elavil -] 35 mg PO HS 09/23/16 [place]-3 Fatty Acids [Fish Oil] 300 mg PO DAILY 11/23/16 clonazePAM [Klonopin -] 0.5 mg PO PRN PRN 11/23/16 Cholecalciferol (Vitamin D3) [Vitamin D3 -] 2,000 unit PO DAILY 04/16/17 Albuterol 0.083% Nebulizer Grace [Ventolin 0.083% Nebulizer Soln -] 1 amp NEB TIDR #30 amp 06/30/17 Albuterol Sulfate Inhaler - [Ventolin HFA Inhaler -] 2 puff IH Q4H PRN #1 inhaler 06/30/17 Fluticasone/Vilanterol [Breo Ellipta 200-25 Mcg INH] 1 each IH DAILY 10/17/17 Diltiazem Cd [Cardizem Cd -] 180 mg PO DAILY 10/18/17 Tiotropium [place] [Spiriva] 1 inh PO DAILY 10/18/17 Aspirin [ASA -] 81 mg PO DAILY 04/16/18 Cyclosporine [Restasis] 1 each OP BID 04/16/18 Ketorolac Tromethamine [Acular] 5 ml OP BID 04/16/18 Pantoprazole Sodium [Protonix] 40 mg PO BID 30 Days #60 tablet. MDD 2 tabs Dicyclomine HCl [Bentyl -] 20 mg PO PRN 05/09/18
[2018-05-15 16:49] VITALS: BP 136/74; PULSE 99; TEMP 98.1
[2018-05-16] MEDS ORDERED: predniSONE 20 MG TABLET (UD) PO SCH (10:00)
== END 2018-05-15 14:49 | disposition home or self-care (01) | DRG 191 ==
LOC: JER 16:32 → JERBED 05-10 00:09 → UNDOADMIN 05-10 00:56 → J7W 05-10 05:06
PROVIDERS: ADMIT Internal Medicine; ATTEND Internal Medicine
DX: J44.1 Chronic obstructive pulmonary disease with (acute) exacerbation (principal); J98.11 Atelectasis; I10 Essential (primary) hypertension; E78.5 Hyperlipidemia, unspecified; Z88.0 Allergy status to penicillin; F41.9 Anxiety disorder, unspecified; K27.9 Peptic ulcer, site unspecified, unspecified as acute or chronic, without hemorrhage or perforation; E01.0 Iodine-deficiency related diffuse (endemic) goiter
CPT/HCPCS: 36415; 71046-TC-FY; 71250-TC; 80048; 80053; 82550; 82607; 82962; 83036; 83735; 84484; 85025; 85027; 90688; 93005; 93010; 94640; 99284-25; G0008; J1644

== ENCOUNTER 2019-05-01 10:26 | Emergency (ER) | payer OTHER, BC | END 2019-05-01 16:47 | disposition home or self-care (01) | LOC: JER 10:26 ==

== ENCOUNTER 2019-05-17 13:20 | Inpatient (IN) | payer OTHER, BC ==
--- NOTE | 2019-05-17 13:26 | PDOC ---
Rapid Medical Evaluation Time Seen by Provider: 05/17/19 13:21 Medical Evaluation: Allergies Allergy/AdvReac Type Severity Reaction Status Date / Time Penicillins Allergy Hives Verified 05/01/19 10:46 Sulfa (Sulfonamide Allergy Hives Verified 05/01/19 10:46 Antibiotics) [Sulfa(Sulfonamide Antibiotics)] 05/17/19 13:23 I performed a brief in-person evaluation of this patient. 58-year-old female with COPD (numerous hospitalizations but no intubations, no home O2) presenting with wheezing and SOB not improved with home nebulizers. Also with painful "bump" on vagina. No fevers/chills. Tachypneic, maintaining O2 sat 97% on room air. Scant end-expiratory wheezing. Tachycardic, no murmurs. I have ordered the following: albuterol/Atrovent nebs, EKG, CXR, cardiac labs. Patient to proceed to ED for further evaluation. Discharge Disposition - Diagnosis Dyspnea - Referrals - Patient Instructions - Post Discharge Activity
[2019-05-17] MEDS ORDERED: ALBUTEROL SO4 2.5/IPRATROPIUM 0.5 INH SOL 3 ML VIAL.NEB. NEB ONE ×4 (13:27→16:15)
--- NOTE | 2019-05-17 13:57 | EKG ---
Test Reason : Blood Pressure : / mmHG Vent. Rate : 096 BPM Atrial Rate : 096 BPM P-R Int : 128 ms QRS Dur : 084 ms QT Int : 338 ms P-R-T Axes : 059 020 032 degrees QTc Int : 427 ms NORMAL SINUS RHYTHM POSSIBLE LEFT ATRIAL ENLARGEMENT NONSPECIFIC ST ABNORMALITY ABNORMAL ECG WHEN COMPARED WITH ECG OF 01-MAY-2019 13:00, PREMATURE ATRIAL COMPLEXES ARE NO LONGER PRESENT Confirmed by NAVARRO HARPER MD ([id number]) on 05/17/2019 1:57:31 PM Referred By: Confirmed By:NAVARRO HARPER MD
[2019-05-17 14:33] LABS: HEMATOCRIT 31.7 % (32.4-45.2); HEMOGLOBIN 9.4 GM/dL (10.7-15.3); LYMPH % 13.2 % (8-40); MCH 22.8 pg (25.7-33.7); MCHC 29.6 g/dl (32.0-36.0); MEAN CELL VOLUME 77.2 fl (80-96); MEAN PLT VOLUME 7.5 fl (7.5-11.1); MONO % 7.5 % (3.8-10.2); NEUT % 77.3 % (42.8-82.8); PLATELET COUNT 433 K/MM3 (134-434); RBC 4.11 M/mm3 (3.60-5.2); RDW 19.1 % (11.6-15.6); WHITE BLOOD COUNT 15.2 K/mm3 (4.0-10.0)
[2019-05-17 14:48] LABS: INR 1.41 (0.83-1.09); PROTHROMBIN TIME (PATIENT) 16.7 SEC (9.7-13.0)
[2019-05-17 14:59] LABS: ALBUMIN 3.2 g/dl (3.4-5.0); ALK PHOS 84 U/L (45-117); ANION GAP 9 MMOL/L (8-16); BILIRUBIN,TOTAL 0.6 mg/dL (0.2-1); BLOOD UREA NITROGEN 17.1 mg/dL (7-18); CALCIUM 8.9 mg/dL (8.5-10.1); CHLORIDE 104 mmol/L (98-107); CO2 29 mmol/L (21-32); CREATININE 1.1 mg/dL (0.55-1.3); GLUCOSE,RANDOM 102 mg/dL (74-106); POTASSIUM 3.1 mmol/L (3.5-5.1); SGOT/AST 7 U/L (15-37); SGPT/ALT 13 U/L (13-61); SODIUM 141 mmol/L (136-145); TOT PROT 5.8 g/dl (6.4-8.2)
--- NOTE | 2019-05-17 15:17 | PDOC ---
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 Pt states the SOB has worsened, with dry cough. She attempted a steroid taper on her own last week, which did not resolve her symptoms. It has not been associated with any chest pain, but she has had difficulty performing her daily tasks due to SOB with walking. She also noted "bumps on her vagina," x4 days ago, and denies any drainage from the site, or any waxing/shaving the area. Pt denies any fevers/chills, headache, vision changes, syncope, productive cough/sputum changes, chest pain, palpitations, nausea/vomiting, abdominal pain, urinary symptoms, diarrhea/constipation, or leg swelling from baseline. Allergies: NKDA PCP: Dr. Cristal Ludwig Social: Pt denies any cigarette, alcohol, or drug use. Pt former smoker. Pt denies any recent travel or sick contacts. Surgical: no relevant history. Family: no relevant history. 05/17/19 17:15 Past History - Travel Traveled outside of the country in the last 30 days: No Close contact w/someone who was outside of country & ill: No - Past Medical History Allergies/Adverse Reactions: Allergies Allergy/AdvReac Type Severity Reaction Status Date / Time Penicillins Allergy Hives Verified 05/01/19 10:46 Sulfa (Sulfonamide Allergy Hives Verified 05/01/19 10:46 Antibiotics) [Sulfa(Sulfonamide Antibiotics)] Home Medications: Ambulatory Orders metFORMIN HCL [Glucophage -] 500 mg PO BID@0700,1630 #90 tablet 05/15/18 Albuterol 0.083% Nebulizer Grace [Ventolin 0.083%] 1 neb NEB Q4H PRN 05/17/19 Digoxin [Lanoxin -] 0.125 mg PO DAILY 05/17/19 Anemia: No Asthma: Yes Cancer: No Cardiac Disorders: Yes (Tachycardia) CVA: No COPD: Yes CHF: No DVT: No Dementia: No Diabetes: Yes (BORDERLINE) GI Disorders: Yes (GERD) Disorders: No HTN: Yes Hypercholesterolemia: Yes Liver Disease: No Seizures: No Thyroid Disease: Yes (NODULES) - Surgical History Abdominal Surgery: Yes (POLYP REMOVED FROM UTERUS 09/06/13) Appendectomy: No Cardiac Surgery: No Cholecystectomy: No GI Surgery: Yes (umbilical hernia/wound vac) Lung Surgery: No Neurologic Surgery: No Orthopedic Surgery: Yes (BUNION REMOVAL RT FOOT 2013) - Immunization History Immunization Up to Date: Yes - Psycho Social/Smoking Cessation Hx Smoking Status: Yes Smoking History: Former smoker Have you smoked in the past 12 months: No Number of Cigarettes Smoked Daily: 0 If you are a former smoker, when did you quit?: 2012 Information on smoking cessation initiated: No 'Breaking Loose' booklet given: 10/28/13 Hx Alcohol Use: No Drug/Substance Use Hx: No Substance Use Type: None Hx Substance Use Treatment: No Respiratory Specific PMHX - Complaint Specific PMHX Angina: No Bronchitis: Yes Pneumonia: No Pulmonary Embolus: No TB (Tuberculosis): No Review of Systems - Review of Systems Able to Perform ROS?: Yes Is the patient limited Uzbek proficient: No Constitutional: Yes: Weight Stable. No: Chills, Diaphoresis, Fever, Loss of Appetite, Malaise, Weakness HEENTM: No: Recent change in vision, Nose Congestion, Throat Pain, Throat Swelling, Difficulty Swallowing Respiratory: Yes: Cough, Shortness of Breath, SOB with Exertion. No: Orthopnea , SOB at Rest, Wheezing, Productive cough, Hemoptysis Cardiac (ROS): No: Chest Pain, Edema, Irregular Heart Rate, Lightheadedness, Palpitations, Syncope, Chest Tightness ABD/GI: No: Constipated, Diarrhea, Nausea, Poor Appetite, Poor Fluid Intake, Vomiting : Yes: Other (vaginal "bumps"). No: Burning, Dysuria, Frequency, Flank Pain, Pain, Urgency Musculoskeletal: No: Back Pain, Joint Pain, Muscle Weakness Integumentary: No: Rash Neurological: No: Headache, Numbness, Weakness, Unsteady Gait, Dizziness Psychiatric: No: Sleep Pattern Change, Change in Appetite Endocrine: No: Increased Urine, Change in Weight Hematologic/Lymphatic: Yes: Blood Clots (DVT/PE). No: Anemia, Easy Bleeding, Easy Bruising All Other Systems: Reviewed and Negative *Physical Exam - Vital Signs Last Vital Signs Temp Pulse Resp BP Pulse Ox 98.1 F 109 H 16 107/73 99 05/17/19 13:22 05/17/19 13:22 05/17/19 13:22 05/17/19 13:22 05/17/19 14:15 - Physical Exam Comments: Tachycardic (HR 109, improved to 90s on exam once resting), pt afebrile, O2 99% . Pt in NAD, obese body habitus. Pt alert and oriented x3. fly finisher generally intact, muscular strength and sensation intact. No midline spinal tenderness, step-offs, or crepitus. Head normocephalic, atraumatic. Eyes PERRLA, EOMI. Oropharynx without erythema or exudates, no LAD b/l. No nasal congestion, hearing intact. Clear heart sounds, S1/S2, no JVD, b/l pedal edema, or heart murmur. Coarse breath sounds b/l, worst at bases with end-expiratory wheeze. No intercostal muscle use. No abdominal or CVA tenderness to palpation, no rebound, no guarding. Abdomen soft, non-distended, and with normoactive bowel sounds. Skin without jaundice or rash. 05/17/19 17:27 ED Treatment Course - LABORATORY CBC & Chemistry Diagram: 05/17/19 14:15 05/17/19 14:15 - ADDITIONAL ORDERS Additional order review: Laboratory Results 05/17/19 05/17/19 05/17/19 14:15 14:15 14:15 PT with INR 16.70 H INR 1.41 H Sodium 141 Potassium 3.1 L Chloride 104 Carbon Dioxide 29 Anion Gap 9 BUN 17.1 Creatinine 1.1 Est GFR (CKD-EPI)AfAm 64.09 Est GFR (CKD-EPI)NonAf 55.30 Random Glucose 102 Calcium 8.9 Total Bilirubin 0.6 AST 7 L ALT 13 Alkaline Phosphatase 84 Creatine Kinase 31 Troponin I < 0.02 B-Natriuretic Peptide 29.8 Total Protein 5.8 L Albumin 3.2 L 05/17/19 14:15 RBC 4.11 MCV 77.2 L MCHC 29.6 L RDW 19.1 H MPV 7.5 Neutrophils % 77.3 Lymphocytes % 13.2 Monocytes % 7.5 Eosinophils % 1.0 Basophils % 1.0 D - Medications Given in the ED: ED Medications Discontinued Medications Generic Name Dose Route Start Last Admin Trade Name Francheska PRN Reason Stop Dose Admin Albuterol/Ipratropium 1 amp 05/17/19 13:27 05/17/19 13:50 Duoneb - NEB 05/17/19 13:28 1 amp ONCE ONE Administration Medical Decision Making - Medical Decision Making Pt was seen at bedside, also will be seen by attending Dr. Buck. Pt presenting with worsening SOB, difficulty performing her ADLs due to SOB, and has tried steroid taper at home with no success. Will evaluate for COPD exacerbation vs pneumonia vs ACS. Pt not hypoxic, is anti-coagulated, and HR not tachycardic while resting, less likely PE. Provided 2 amp duoneb for improvement of SOB and wheezing. Will continue to reassess pt and monitor for symptomatic improvement. ECG: NSR, intervals WNL (HR 96, MN 128, QRS 84, QTc 427). No TWIs or significant ST segment changes. No prior ECG for comparison. 05/17/19 17:29 CBC: WBC 15 CMP: K 3.1 -- providing 40 meq KCl Trop <.02, BNP 29 UA nitrite positive Chest x-ray with atelectasis at L lung base. Combined with coarse breath sounds , WBC, urine infection -- will cover with ceftriaxone and azithromycin. Pt attempted steroid taper at home with no success -- providing IV solumedrol with abx. Pt admitted to med/surg (Dr. Ludwig). Pt failed outpatient steroids at home, elevated WBC (pneumonia and UTI). Will be admitted for IV abx therapy, COPD treatment, electrolyte correction, and observation. PT cannot perform ADLs due to worsening SOB. Pt receiving abx and duonebs, now resting comfortably. 05/17/19 17:31 Discharge - Discharge Information Problems reviewed: Yes Clinical Impression/Diagnosis: COPD (chronic obstructive pulmonary disease) with acute bronchitis Dyspnea Qualifiers: Dyspnea type: dyspnea on exertion Qualified Code(s): R06.09 - Other forms of dyspnea UTI (urinary tract infection) Qualifiers: Urinary tract infection type: site unspecified Hematuria presence: with hematuria Qualified Code(s): N39.0 - Urinary tract infection, site not specified ; R31.9 - Hematuria, unspecified Pneumonia Qualifiers: Pneumonia type: due to unspecified organism Laterality: left Lung location: lower lobe of lung Qualified Code(s): J18.1 - Lobar pneumonia, unspecified organism Condition: Stable - Admission Yes - Follow up/Referral - Patient Discharge Instructions - Post Discharge Activity
[2019-05-17] MEDS ORDERED: methylPREDNISolone NA SUCC 40 MG/1 ML VIAL IVPUSH ONE (16:07)
--- NOTE | 2019-05-17 16:09 | PDOC ---
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
[2019-05-17] MEDS ORDERED: CEFTRIAXONE 1,000 MG in DEXTROSE 5%-WATER - 50 ML IVPB ONE (16:10)
[2019-05-17] MEDS ORDERED: AZITHROMYCIN IVPB 500 MG in DEXTROSE 5%-WATER - 250 ML IVPB ONE (16:10)
[2019-05-17] MEDS ORDERED: methylPREDNISolone NA SUCC 40 MG/1 ML VIAL ONE (16:16)
[2019-05-17] MEDS ORDERED: CEFTRIAXONE 1 GM/50 ML BAG ONE (16:16)
[2019-05-17 16:24] LABS: EPI CELLS 2.4 /HPF (0-5/HPF); HYALINE CASTS 115 /lpf (0-8); PH,URINE 6.5 (5.0-8.0); URINE APPEARANCE CLOUDY; URINE BILIRUBIN NEGATIVE (NEGATIVE); URINE COLOR YELLOW; URINE GLUCOSE (UA) NEGATIVE (NEGATIVE); URINE KETONE 1+ (NEGATIVE); URINE LEUK ESTERASE 2+ (NEGATIVE); URINE NITRITE POSITIVE (NEGATIVE); URINE PROTEIN 1+ (NEGATIVE); URINE WBC 80 /hpf (0-5)
[2019-05-17] MEDS ORDERED: AZITHROMYCIN IVPB 500 MG/250 ML BAG IVPB ONE (16:35)
[2019-05-17] MEDS ORDERED: KCL 10 MEQ IVPB 10 MEQ/100 ML INFUS.BAG IVPB ONE (16:35)
[2019-05-17] MEDS ORDERED: POTASSIUM CHLORIDE TABS 10 MEQ TABLET.ER (FP) PO ONE (16:39)
[2019-05-17 16:54] LABS: URINE RBC 15-20 /hpf (0-4)
[2019-05-17] MEDS ORDERED: POTASSIUM CHLORIDE TABS 20 MEQ TABLET.ER (FP) PO ONE (17:09)
[2019-05-17] MEDS: KCL 10 MEQ IVPB 10 MEQ/100 ML INFUS.BAG IVPB SCH (17:16)
[2019-05-17] MEDS ORDERED: ACETAMINOPHEN 325 MG TABLET (FP) PO PRN (17:49)
[2019-05-17] MEDS ORDERED: ALBUTEROL SO4 2.5/IPRATROPIUM 0.5 INH SOL 3 ML VIAL.NEB. NEB PRN (17:49)
[2019-05-17] MEDS: methylPREDNISolone NA SUCC 40 MG/1 ML VIAL IVPUSH SCH (19:07)
[2019-05-17] MEDS: APIXABAN 5 MG TABLET PO SCH (21:47)
[2019-05-17] MEDS ORDERED: AMITRIPTYLINE HCL 25 MG TABLET (FP) PO SCH (22:00)
[2019-05-17] MEDS: ATORVASTATIN CA 10 MG TABLET (FP) PO SCH (23:03)
[2019-05-17] MEDS: RANITIDINE HCL 150 MG TABLET (FP) PO SCH (23:03)
[2019-05-17] MEDS ORDERED: metFORMIN HCL 500 MG TABLET (FP) PO ONE (23:18)
[2019-05-17 23:56] VITALS: BMI 29.2
[2019-05-18] MEDS: methylPREDNISolone NA SUCC 40 MG/1 ML VIAL IVPUSH SCH ×3 (01:37→17:24)
[2019-05-18] MEDS ORDERED: clonazePAM 0.5 MG TABLET PO ONE (01:47)
[2019-05-18 07:27] LABS: BASO % 0.5 % (0-2.0); HEMATOCRIT 27.9 % (32.4-45.2); HEMOGLOBIN 8.5 GM/dL (10.7-15.3); LYMPH % 8.8 % (8-40); MCH 23.4 pg (25.7-33.7); MCHC 30.6 g/dl (32.0-36.0); MEAN CELL VOLUME 76.4 fl (80-96); MEAN PLT VOLUME 7.6 fl (7.5-11.1); MONO % 0.3 % (3.8-10.2); NEUT % 90.4 % (42.8-82.8); PLATELET COUNT 441 K/MM3 (134-434); RBC 3.65 M/mm3 (3.60-5.2); RDW 18.6 % (11.6-15.6); WHITE BLOOD COUNT 14.7 K/mm3 (4.0-10.0)
[2019-05-18 07:50] LABS: ALBUMIN 3.1 g/dl (3.4-5.0); BILIRUBIN,TOTAL 0.6 mg/dL (0.2-1); BLOOD UREA NITROGEN 19.1 mg/dL (7-18); CALCIUM 8.3 mg/dL (8.5-10.1); CREATININE 0.6 mg/dL (0.55-1.3); POTASSIUM 3.8 mmol/L (3.5-5.1); TOT PROT 5.6 g/dl (6.4-8.2)
[2019-05-18] MEDS: metFORMIN HCL 500 MG TABLET (FP) PO SCH ×2 (08:28→16:57)
[2019-05-18] MEDS ORDERED: cefTRIAXone SODIUM 1 GM VIAL ONE (09:53)
[2019-05-18] MEDS ORDERED: DEXTROSE 5%-WATER - 50 ML IVPB ONE (09:54)
[2019-05-18] MEDS ORDERED: AZITHROMYCIN IVPB 500 MG in DEXTROSE 5%-WATER - 250 ML IVPB SCH (10:00)
[2019-05-18] MEDS: APIXABAN 5 MG TABLET PO SCH ×2 (10:11→22:08)
[2019-05-18] MEDS: RANITIDINE HCL 150 MG TABLET (FP) PO SCH (10:11)
[2019-05-18] MEDS: DIGOXIN 0.125 MG TABLET (FP) PO SCH (10:11)
[2019-05-18] MEDS: CEFTRIAXONE 1 GM in DEXTROSE 5%-WATER - 50 ML IVPB SCH (10:11)
--- NOTE | 2019-05-18 12:37 | HP ---
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 Pt states the SOB has worsened, with dry cough. She attempted a steroid taper on her own last week, which did not resolve her symptoms. It has not been associated with any chest pain, but she has had difficulty performing her daily tasks due to SOB with walking. She also noted "bumps on her vagina," x4 days ago, and denies any drainage from the site, or any waxing/shaving the area. Pt denies any fevers/chills, headache, vision changes, syncope, productive cough/sputum changes, chest pain, palpitations, nausea/vomiting, abdominal pain, urinary symptoms, diarrhea/constipation, or leg swelling from baseline. Allergies: NKDA PCP: Dr. Cristal Ludwig Social: Pt denies any cigarette, alcohol, or drug use. Pt former smoker. Pt denies any recent travel or sick contacts. Surgical: no relevant history. Family: no relevant history. Pt examined by me today on the floors-- She was initially on PO prednsione as an outpt but did not get any better and came to the hospital She received solumedrol and iv antibiotics Today she feels slightly better H.O DVT /PE /paroxysmal Afib-- she moved to [facility] and was diagnosed with this during COPD exacerbation admission there -- now she moved back to [place] Abscess on labia -decreased pain Also c/o insomnia History Source: Patient Limitations to Obtaining History: No Limitations - Past Medical History Cardiovascular: Yes: AFIB, HTN, Hyperlipdemia Pulmonary: Yes: COPD, Pulmonary Embolus Gastrointestinal: Yes: Other (HERNIA REPAIR WITH COMPLICATIONS AND POST OP SBO) ...LMP: 08/04/13 Heme/Onc: Yes: B12 Deficiency Psych: Yes: Anxiety Musculoskeletal: Yes: Osteoarthritis, Other (KNEE SURGERY) Rheumatology: Yes: Other (OSTEOARTHRITIS) Additional Past Medical History: DVT - Past Surgical History Past Surgical History: Yes: Hernia Repair - Smoking History Smoking history: Former smoker Have you smoked in the past 12 months: No Aproximately how many cigarettes per day: 0 If you are a former smoker, when did you quit?: 2013 - Alcohol/Substance Use Hx Alcohol Use: No History of Substance Use: reports: None - Social History ADL: Independent History of Recent Travel: No Home Medications - Allergies Allergies/Adverse Reactions: Allergies Allergy/AdvReac Type Severity Reaction Status Date / Time Penicillins Allergy Hives Verified 05/01/19 10:46 Sulfa (Sulfonamide Allergy Hives Verified 05/01/19 10:46 Antibiotics) [Sulfa(Sulfonamide Antibiotics)] - Home Medications Home Medications: Ambulatory Orders metFORMIN HCL [Glucophage -] 500 mg PO BID@0700,1630 #90 tablet 05/15/18 Albuterol 0.083% Nebulizer Grace [Ventolin 0.083%] 1 neb NEB Q4H PRN 05/17/19 Amitriptyline HCl 25 mg PO HS 05/17/19 Apixaban [Eliquis] 5 mg PO BID 05/17/19 Atorvastatin Calcium [Lipitor] 10 mg PO HS 05/17/19 Cholecalciferol (Vitamin D3) [Vitamin D3 -] 2,000 unit PO DAILY 05/17/19 Cyanocobalamin [Vitamin B12 -] 1,000 mcg PO DAILY 05/17/19 Cyclosporine [Restasis] 1 each OP BID 05/17/19 Digoxin [Lanoxin -] 0.125 mg PO DAILY 05/17/19 Diltiazem Cd [Cardizem Cd -] 300 mg PO DAILY 05/17/19 Fluticasone/Vilanterol [Breo Ellipta 200-25 Mcg INH] 1 each IH DAILY 05/17/19 Levalbuterol Tartrate [Xopenex Hfa] 1 puff IH BID PRN 05/17/19 [place]-3S/Dha/Epa/Fish Oil [Fish Oil 1,000 mg Softgel] 1 each PO DAILY 05/17/19 Polyvinyl Alcohol [Artificial Tears] 1 drop OD QID 05/17/19 Prednisolone Acetate/Pf [Prednisolone Acet 1% Eye Drop] 5 ml OP TID PRN Roflumilast [Daliresp -] 500 mcg PO DAILY 05/17/19 Tiotropium [place] [Spiriva] 18 mcg IH DAILY 05/17/19 clonazePAM [Klonopin -] 0.5 mg PO PRN PRN 05/17/19 Review of Systems - Review of Systems Constitutional: denies: Chills, Fever Cardiovascular: reports: Shortness of Breath. denies: Chest Pain, Palpitations Respiratory: reports: Cough, SOB Physical Examination Vital Signs: Vital Signs Temperature 98.1 F 05/18/19 06:00 Pulse Rate 98 H 05/18/19 10:11 Respiratory Rate 18 05/18/19 06:00 Blood Pressure 116/56 L 05/18/19 06:00 O2 Sat by Pulse Oximetry (%) 94 L 05/18/19 10:00 Constitutional: Yes: No Distress, Calm Cardiovascular: Yes: Regular Rate and Rhythm Respiratory: Yes: Diminished Gastrointestinal: Yes: Normal Bowel Sounds, Soft. No: Tenderness Edema: No Labs: CBC, BMP 05/18/19 06:40 05/18/19 06:40 Imaging - Results Chest X-ray: Image Reviewed EKG: Image Reviewed (sinus) Problem List - Problems (1) Paroxysmal A-fib Code(s): I48.0 - PAROXYSMAL ATRIAL FIBRILLATION (2) COPD (chronic obstructive pulmonary disease) with acute bronchitis Code(s): J44.0 - CHRONIC OBSTRUCTIVE PULMON DISEASE W ACUTE LOWER RESP INFCT (3) Dyspnea Code(s): R06.00 - DYSPNEA, UNSPECIFIED Qualifiers: Dyspnea type: dyspnea on exertion Qualified Code(s): R06.09 - Other forms of dyspnea (4) Abscess Code(s): L02.91 - CUTANEOUS ABSCESS, UNSPECIFIED (5) COPD exacerbation Code(s): J44.1 - CHRONIC OBSTRUCTIVE PULMONARY DISEASE W (ACUTE) EXACERBATION (6) HTN (hypertension) Code(s): I10 - ESSENTIAL (PRIMARY) HYPERTENSION Qualifiers: Hypertension type: essential hypertension Qualified Code(s): I10 - Essential (primary) hypertension Assessment/Plan PLAN On Solumedrol iv iv antibiotics nebs as needed Amitryptiline -- increase to 50mg Pulmonary eval continue Eliquis OOB Incentive spirometry
[2019-05-18] MEDS ORDERED: PT OWN MED DRAWER 7, Y5N ONE (12:57)
[2019-05-18] MEDS: AZITHROMYCIN 250 MG TABLET PO SCH (13:01)
--- NOTE | 2019-05-18 14:39 | CON.PULM ---
Consult Consult Specialty:: PULMONARY Referred by:: Dr Ludwig Reason for Consultation:: COPD - History of Present Illness Chief Complaint: shortness of breath History of Present Illness: 58yo female with h/o atrial fibrillation, COPD, h/o PE/DVT on anticoagulation, anemia who was admitted with worsening shortness of breath x 1 week. No chest pain or palpitations. No fevers, chills or sweats. +nonproductive cough and wheezing. Was recently at a family reunion with many people. Started taking prednisone empirically with some improvement but she ran out and the nebulizers were not providing significant relief. She is a former smoker, quit in 2013. - History Source History Provided By: Patient, Medical Record Limitations to Obtaining History: No Limitations - Past Medical History Cardio/Vascular: Yes: AFIB, HTN, Hyperlipdemia Pulmonary: Yes: COPD, Pulmonary Embolus Gastrointestinal: Yes: Other (HERNIA REPAIR WITH COMPLICATIONS AND POST OP SBO) ...LMP: 08/04/13 Psych: Yes: Anxiety Musculoskeletal: Yes: Osteoarthritis, Other (KNEE SURGERY) Rheumatology: Yes: Other (OSTEOARTHRITIS) - Past Surgical History Past Surgical History: Yes: Hernia Repair - Alcohol/Substance Use Hx Alcohol Use: No History of Substance Use: reports: None - Smoking History Smoking history: Former smoker Have you smoked in the past 12 months: No Aproximately how many cigarettes per day: 0 If you are a former smoker, when did you quit?: 2013 - Social History ADL: Independent History of Recent Travel: No Home Medications - Allergies Allergies/Adverse Reactions: Allergies Allergy/AdvReac Type Severity Reaction Status Date / Time Penicillins Allergy Hives Verified 05/01/19 10:46 Sulfa (Sulfonamide Allergy Hives Verified 05/01/19 10:46 Antibiotics) [Sulfa(Sulfonamide Antibiotics)] - Home Medications Home Medications: Ambulatory Orders metFORMIN HCL [Glucophage -] 500 mg PO BID@0700,1630 #90 tablet 05/15/18 Albuterol 0.083% Nebulizer Grace [Ventolin 0.083%] 1 neb NEB Q4H PRN 05/17/19 Amitriptyline HCl 25 mg PO HS 05/17/19 Apixaban [Eliquis] 5 mg PO BID 05/17/19 Atorvastatin Calcium [Lipitor] 10 mg PO HS 05/17/19 Cholecalciferol (Vitamin D3) [Vitamin D3 -] 2,000 unit PO DAILY 05/17/19 Cyanocobalamin [Vitamin B12 -] 1,000 mcg PO DAILY 05/17/19 Cyclosporine [Restasis] 1 each OP BID 05/17/19 Digoxin [Lanoxin -] 0.125 mg PO DAILY 05/17/19 Diltiazem Cd [Cardizem Cd -] 300 mg PO DAILY 05/17/19 Fluticasone/Vilanterol [Breo Ellipta 200-25 Mcg INH] 1 each IH DAILY 05/17/19 Levalbuterol Tartrate [Xopenex Hfa] 1 puff IH BID PRN 05/17/19 [place]-3S/Dha/Epa/Fish Oil [Fish Oil 1,000 mg Softgel] 1 each PO DAILY 05/17/19 Polyvinyl Alcohol [Artificial Tears] 1 drop OD QID 05/17/19 Prednisolone Acetate/Pf [Prednisolone Acet 1% Eye Drop] 5 ml OP TID PRN Roflumilast [Daliresp -] 500 mcg PO DAILY 05/17/19 Tiotropium [place] [Spiriva] 18 mcg IH DAILY 05/17/19 clonazePAM [Klonopin -] 0.5 mg PO PRN PRN 05/17/19 Review of Systems - Review of Systems Constitutional: reports: Weakness. denies: Chills, Fever Eyes: denies: Recent Change in Vision HENT: denies: Nasal Congestion, Throat Pain Neck: denies: Stiffness, Tenderness Cardiovascular: reports: Shortness of Breath. denies: Chest Pain, Palpitations Respiratory: reports: Cough, SOB on Exertion, Wheezing. denies: Hemoptysis Gastrointestinal: denies: Abdominal Pain, Nausea, Vomiting Genitourinary: denies: Dysuria, Hematuria Neurological: denies: Dizziness, Headache Endocrine: denies: Unexplained Weight Loss Physical Exam Vital Sings: Vital Signs Temperature 98.1 F 05/18/19 06:00 Pulse Rate 98 H 05/18/19 10:11 Respiratory Rate 18 05/18/19 06:00 Blood Pressure 116/56 L 05/18/19 06:00 O2 Sat by Pulse Oximetry (%) 94 L 05/18/19 10:00 Constitutional: Yes: No Distress, Calm Eyes: Yes: Conjunctiva Clear, EOM Intact HENT: Yes: Atraumatic, Normocephalic Neck: Yes: Supple, Trachea Midline Cardiovascular: Yes: Regular Rate and Rhythm Respiratory: Yes: Poor Air Entry, Rales (left base) ...Clubbing: No Gastrointestinal: Yes: Normal Bowel Sounds, Soft. No: Tenderness Edema: No Neurological: Yes: Alert, Oriented Labs: CBC, BMP 05/18/19 06:40 05/18/19 06:40 Imaging - Results Chest X-ray: Report Reviewed, Image Reviewed (left base atelectasis) Problem List - Problems (1) COPD exacerbation Code(s): J44.1 - CHRONIC OBSTRUCTIVE PULMONARY DISEASE W (ACUTE) EXACERBATION (2) UTI (urinary tract infection) Code(s): N39.0 - URINARY TRACT INFECTION, SITE NOT SPECIFIED Qualifiers: Urinary tract infection type: site unspecified Hematuria presence: with hematuria Qualified Code(s): N39.0 - Urinary tract infection, site not specified; R31.9 - Hematuria, unspecified (3) Paroxysmal A-fib Code(s): I48.0 - PAROXYSMAL ATRIAL FIBRILLATION Assessment/Plan Acute COPD Exacerbation UTI Paroxysmal Atrial Fibrillation h/o PE/DVT Atelectasis Anemia - IV medrol - inhaled bronchodilators standing and PRN - azithromycin - O2 to keep SpO2 >90% - rate control - continue anticoagulation - outpt f/u of CXR Thank you for this consult Kd Lugo MD
[2019-05-18] MEDS ORDERED: clonazePAM 0.5 MG TABLET PO SCH (22:00)
[2019-05-18] MEDS: ATORVASTATIN CA 10 MG TABLET (FP) PO SCH (22:08)
[2019-05-18] MEDS: FAMOTIDINE 20 MG/50 ML IVPB 20 MG/50 ML MG IVPB SCH (22:08)
[2019-05-18] MEDS: AMITRIPTYLINE HCL 25 MG TABLET (FP) PO SCH (22:08)
[2019-05-19] MEDS: methylPREDNISolone NA SUCC 40 MG/1 ML VIAL IVPUSH SCH ×4 (01:17→22:21)
[2019-05-19] MEDS ORDERED: PT OWN MED DRAWER 7, Y5N ONE ×2 (06:38→21:42)
[2019-05-19] MEDS ORDERED: DEXTROSE 5%-WATER - 50 ML IVPB ONE (09:04)
[2019-05-19] MEDS ORDERED: cefTRIAXone SODIUM 1 GM VIAL ONE (09:04)
[2019-05-19] MEDS: ROFLUMILAST 500 MCG TABLET PO SCH (09:32)
[2019-05-19] MEDS: APIXABAN 5 MG TABLET PO SCH ×2 (09:32→22:22)
[2019-05-19] MEDS: AZITHROMYCIN 250 MG TABLET PO SCH (09:32)
[2019-05-19] MEDS: DIGOXIN 0.125 MG TABLET (FP) PO SCH (09:32)
[2019-05-19] MEDS: FAMOTIDINE 20 MG/50 ML IVPB 20 MG/50 ML MG IVPB SCH ×2 (10:03→22:22)
[2019-05-19] MEDS: CEFTRIAXONE 1 GM in DEXTROSE 5%-WATER - 50 ML IVPB SCH (10:03)
[2019-05-19] MEDS: metFORMIN HCL 500 MG TABLET (FP) PO SCH ×2 (10:09→17:44)
--- NOTE | 2019-05-19 10:15 | PN ---
Progress Note (short form) - Note Progress Note: Better decreased SOB Vital Signs - 24 hr 05/18/19 05/18/19 05/19/19 16:30 20:38 06:36 Temperature 98.5 F 98.6 F 98.1 F Pulse Rate 94 H 88 80 Respiratory 18 16 18 Rate Blood Pressure 112/68 122/54 L 124/60 O2 Sat by Pulse 95 Oximetry (%) 05/19/19 09:32 Temperature Pulse Rate 75 Respiratory Rate Blood Pressure O2 Sat by Pulse Oximetry (%) Current Medications Generic Name Dose Route Start Last Admin Trade Name Freq PRN Reason Stop Dose Admin Acetaminophen 650 mg 05/17/19 17:49 Tylenol - PO Q6H PRN FEVER Albuterol/Ipratropium 1 amp 05/17/19 17:49 Duoneb - NEB Q6H PRN SHORTNESS OF BREATH Amitriptyline HCl 50 mg 05/18/19 12:38 05/18/19 22:08 Elavil - PO 50 mg HS SANDEEP Administration Apixaban 5 mg 05/17/19 22:00 05/19/19 09:32 Eliquis - PO 5 mg BID SANDEEP Administration Atorvastatin Calcium 10 mg 05/17/19 22:00 05/18/19 22:08 Lipitor - PO 10 mg HS SANDEEP Administration Azithromycin 500 mg 05/18/19 12:45 05/19/19 09:32 Zithromax - PO 05/20/19 10:01 500 mg DAILY SANDEEP Administration Clonazepam 0.25 mg 05/18/19 12:38 Klonopin - PO BID PRN ANXIETY Digoxin 0.125 mg 05/18/19 10:00 05/19/19 09:32 Lanoxin - PO 0.125 mg DAILY SANDEEP Administration Diltiazem HCl 300 mg 05/18/19 11:30 05/19/19 09:33 Cardizem Cd - PO 300 mg DAILY SANDEEP Administration Ceftriaxone Sodium 1 gm/ 50 mls @ 100 mls/hr 05/18/19 10:00 05/19/19 10:03 Dextrose IVPB 100 mls/hr DAILY SANDEEP Administration Famotidine/Sodium Chloride 20 mg in 50 mls @ 100 mls/hr 05/18/19 22:00 10:03 Pepcid 20 Mg Premixed Ivpb - IVPB 100 mls/hr BID SANDEEP Administration Metformin HCl 500 mg 05/18/19 07:00 05/19/19 10:09 Glucophage - PO 500 mg BID@0700,1630 SANDEEP Administration Roflumilast 500 mcg 05/19/19 10:00 05/19/19 09:32 Daliresp - PO 500 mcg DAILY SANDEEP Administration Laboratory Results - last 24 hr 05/18/19 05/18/19 05/19/19 16:55 22:09 06:32 POC Glucometer 148 149 155 S1 S2 RRR lungs decreased breath sounds No ronchi Abd-soft, NT no edema PLAN taper solumedrol continue with ceftriaxone and zithromax nebs as needed Problem List - Problems (1) Paroxysmal A-fib Code(s): I48.0 - PAROXYSMAL ATRIAL FIBRILLATION (2) COPD (chronic obstructive pulmonary disease) with acute bronchitis Code(s): J44.0 - CHRONIC OBSTRUCTIVE PULMON DISEASE W ACUTE LOWER RESP INFCT (3) Dyspnea Code(s): R06.00 - DYSPNEA, UNSPECIFIED Qualifiers: Dyspnea type: dyspnea on exertion Qualified Code(s): R06.09 - Other forms of dyspnea (4) Abscess Code(s): L02.91 - CUTANEOUS ABSCESS, UNSPECIFIED (5) COPD exacerbation Code(s): J44.1 - CHRONIC OBSTRUCTIVE PULMONARY DISEASE W (ACUTE) EXACERBATION (6) HTN (hypertension) Code(s): I10 - ESSENTIAL (PRIMARY) HYPERTENSION Qualifiers: Hypertension type: essential hypertension Qualified Code(s): I10 - Essential (primary) hypertension
--- NOTE | 2019-05-19 13:32 | PN ---
Progress Note (short form) - Note Progress Note: PULMONARY Feeling better. Less short of breath. Vital Signs Period Temp Pulse Resp BP Sys/Jordan Pulse Ox Last 24 Hr 98.1 F-98.6 F 75-94 15-18 112-124/54-68 95-99 Gen: NAD at rest Heart: RRR Lung: decreased breath sounds at the bases, scattered rhonchi Abd: soft, nontender Ext: no edema CBC, BMP 05/18/19 06:40 05/18/19 06:40 Active Medications Acetaminophen (Tylenol -) 650 mg PO Q6H PRN PRN Reason: FEVER Albuterol/Ipratropium (Duoneb -) 1 amp NEB Q6H PRN PRN Reason: SHORTNESS OF BREATH Amitriptyline HCl (Elavil -) 50 mg PO [facility] Last Admin: 05/18/19 22:08 Dose: 50 mg Apixaban (Eliquis -) 5 mg PO BID [facility] Last Admin: 05/19/19 09:32 Dose: 5 mg Atorvastatin Calcium (Lipitor -) 10 mg PO [facility] Last Admin: 05/18/19 22:08 Dose: 10 mg Azithromycin (Zithromax -) 500 mg PO DAILY [facility] Stop: 05/20/19 10:01 Last Admin: 05/19/19 09:32 Dose: 500 mg Clonazepam (Klonopin -) 0.25 mg PO BID PRN PRN Reason: ANXIETY Digoxin (Lanoxin -) 0.125 mg PO DAILY [facility] Last Admin: 05/19/19 09:32 Dose: 0.125 mg Diltiazem HCl (Cardizem Cd -) 300 mg PO DAILY [facility] Last Admin: 05/19/19 09:33 Dose: 300 mg Ceftriaxone Sodium 1 gm/ (Dextrose) 50 mls @ 100 mls/hr IVPB DAILY [facility] Last Admin: 05/19/19 10:03 Dose: 100 mls/hr Famotidine/Sodium Chloride (Pepcid 20 Mg Premixed Ivpb -) 20 mg in 50 mls @ 100 mls/hr IVPB BID [facility] Last Admin: 05/19/19 10:03 Dose: 100 mls/hr Metformin HCl (Glucophage -) 500 mg PO BID@0700,1630 [facility] Last Admin: 05/19/19 10:09 Dose: 500 mg Methylprednisolone Sodium Succinate (Solu-Medrol -) 40 mg IVPUSH Q12H [facility] Roflumilast (Daliresp -) 500 mcg PO DAILY [facility] Last Admin: 05/19/19 09:32 Dose: 500 mcg A/P Acute COPD Exacerbation UTI Paroxysmal Atrial Fibrillation h/o PE/DVT Atelectasis Anemia - continue medrol, can likely change to PO prednisone in AM - inhaled bronchodilators standing and PRN - azithromycin - O2 to keep SpO2 >90% - rate control - continue anticoagulation - outpt f/u of CXR Problem List - Problems (1) COPD exacerbation Code(s): J44.1 - CHRONIC OBSTRUCTIVE PULMONARY DISEASE W (ACUTE) EXACERBATION (2) UTI (urinary tract infection) Code(s): N39.0 - URINARY TRACT INFECTION, SITE NOT SPECIFIED Qualifiers: Urinary tract infection type: site unspecified Hematuria presence: with hematuria Qualified Code(s): N39.0 - Urinary tract infection, site not specified; R31.9 - Hematuria, unspecified (3) Paroxysmal A-fib Code(s): I48.0 - PAROXYSMAL ATRIAL FIBRILLATION
[2019-05-19] MEDS: ALBUTEROL SO4 2.5/IPRATROPIUM 0.5 INH SOL 3 ML VIAL.NEB. NEB SCH ×2 (16:42→20:16)
[2019-05-19] MEDS: clonazePAM 0.5 MG TABLET PO PRN (22:20)
[2019-05-19] MEDS: AMITRIPTYLINE HCL 25 MG TABLET (FP) PO SCH (22:21)
[2019-05-19] MEDS: ATORVASTATIN CA 10 MG TABLET (FP) PO SCH (22:21)
[2019-05-20] MEDS: ALBUTEROL SO4 2.5/IPRATROPIUM 0.5 INH SOL 3 ML VIAL.NEB. NEB SCH ×4 (07:35→20:27)
[2019-05-20] MEDS ORDERED: cefTRIAXone SODIUM 1 GM VIAL ONE (09:23)
[2019-05-20] MEDS ORDERED: DEXTROSE 5%-WATER - 50 ML IVPB ONE (09:23)
[2019-05-20] MEDS: methylPREDNISolone NA SUCC 40 MG/1 ML VIAL IVPUSH SCH (09:27)
[2019-05-20] MEDS: FAMOTIDINE 20 MG/50 ML IVPB 20 MG/50 ML MG IVPB SCH ×2 (09:27→21:51)
[2019-05-20] MEDS: CEFTRIAXONE 1 GM in DEXTROSE 5%-WATER - 50 ML IVPB SCH (09:27)
[2019-05-20] MEDS: APIXABAN 5 MG TABLET PO SCH ×2 (10:05→21:50)
[2019-05-20] MEDS: metFORMIN HCL 500 MG TABLET (FP) PO SCH ×2 (10:06→17:52)
[2019-05-20] MEDS: DIGOXIN 0.125 MG TABLET (FP) PO SCH (10:06)
[2019-05-20] MEDS: AZITHROMYCIN 250 MG TABLET PO SCH (10:06)
[2019-05-20] MEDS: ROFLUMILAST 500 MCG TABLET PO SCH (10:07)
--- NOTE | 2019-05-20 11:20 | PN ---
Progress Note, Physician History of Present Illness: pulmonary alert,feeling better,less dyspneic - Current Medication List Current Medications: Active Medications Acetaminophen (Tylenol -) 650 mg PO Q6H PRN PRN Reason: FEVER Albuterol/Ipratropium (Duoneb -) 1 amp NEB RQID [facility] Last Admin: 05/20/19 07:35 Dose: Not Given Amitriptyline HCl (Elavil -) 50 mg PO HS [facility] Last Admin: 05/19/19 22:21 Dose: 50 mg Apixaban (Eliquis -) 5 mg PO BID [facility] Last Admin: 05/20/19 10:05 Dose: 5 mg Atorvastatin Calcium (Lipitor -) 10 mg PO HS [facility] Last Admin: 05/19/19 22:21 Dose: 10 mg Clonazepam (Klonopin -) 0.25 mg PO BID PRN PRN Reason: ANXIETY Last Admin: 05/19/19 22:20 Dose: 0.25 mg Digoxin (Lanoxin -) 0.125 mg PO DAILY [facility] Last Admin: 05/20/19 10:06 Dose: 0.125 mg Diltiazem HCl (Cardizem Cd -) 300 mg PO DAILY [facility] Last Admin: 05/20/19 10:07 Dose: 300 mg Ceftriaxone Sodium 1 gm/ (Dextrose) 50 mls @ 100 mls/hr IVPB DAILY [facility] Last Admin: 05/20/19 09:27 Dose: 100 mls/hr Famotidine/Sodium Chloride (Pepcid 20 Mg Premixed Ivpb -) 20 mg in 50 mls @ 100 mls/hr IVPB BID [facility] Last Admin: 05/20/19 09:27 Dose: 100 mls/hr Metformin HCl (Glucophage -) 500 mg PO BID@0700,1630 [facility] Last Admin: 05/20/19 10:06 Dose: 500 mg Methylprednisolone Sodium Succinate (Solu-Medrol -) 40 mg IVPUSH Q12H [facility] Last Admin: 05/20/19 09:27 Dose: 40 mg Roflumilast (Daliresp -) 500 mcg PO DAILY [facility] Last Admin: 05/20/19 10:07 Dose: 500 mcg - Objective Vital Signs: Vital Signs Temperature 96.6 F L 05/20/19 06:03 Pulse Rate 80 05/20/19 10:06 Respiratory Rate 16 05/20/19 06:03 Blood Pressure 111/56 L 05/20/19 06:03 O2 Sat by Pulse Oximetry (%) 98 05/19/19 21:00 Constitutional: Yes: Well Nourished, Calm Eyes: Yes: WNL HENT: Yes: WNL Neck: Yes: WNL Cardiovascular: Yes: Regular Rate and Rhythm, S1, S2 Respiratory: Yes: Wheezes (few scattered wheezes) Gastrointestinal: Yes: Normal Bowel Sounds, Soft Extremities: Yes: WNL Edema: No Labs: CBC, BMP Assessment/Plan A/P Acute COPD Exacerbation improving UTI Paroxysmal Atrial Fibrillation h/o PE/DVT Atelectasis Anemia - medrol - inhaled bronchodilators standing and PRN - azithromycin - O2 to keep SpO2 >90% - rate control - anticoagulation - outpt f/u of CXR Problem List - Problems (1) COPD exacerbation Code(s): J44.1 - CHRONIC OBSTRUCTIVE PULMONARY DISEASE W (ACUTE) EXACERBATION (2) UTI (urinary tract infection) Code(s): N39.0 - URINARY TRACT INFECTION, SITE NOT SPECIFIED Qualifiers: Urinary tract infection type: site unspecified Hematuria presence: with hematuria Qualified Code(s): N39.0 - Urinary tract infection, site not specified; R31.9 - Hematuria, unspecified (3) Paroxysmal A-fib Code(s): I48.0 - PAROXYSMAL ATRIAL FIBRILLATION
--- NOTE | 2019-05-20 12:53 | PN ---
Progress Note (short form) - Note Progress Note: pt seen/ examined chart reviewed feels better no distress mood calm Vital Signs Temp 96.6 F L 05/20/19 06:03 Pulse 80 05/20/19 10:06 Resp 16 05/20/19 06:03 BP 111/56 L 05/20/19 06:03 Pulse Ox 98 05/19/19 21:00 Intake & Output 05/19/19 05/20/19 05/20/19 23:59 11:59 23:59 Intake Total 950 Balance 950 Intake: IV 20 RFA #24 05/19 20 IVPB 150 Oral 780 Other: Voiding Method Toilet Toilet # Unmeasured Voids Void 2 Bowel Movement No Active Medications Acetaminophen (Tylenol -) 650 mg PO Q6H PRN PRN Reason: FEVER Albuterol/Ipratropium (Duoneb -) 1 amp NEB RQID [facility] Last Admin: 05/20/19 11:35 Dose: Not Given Amitriptyline HCl (Elavil -) 50 mg PO HS [facility] Last Admin: 05/19/19 22:21 Dose: 50 mg Apixaban (Eliquis -) 5 mg PO BID [facility] Last Admin: 05/20/19 10:05 Dose: 5 mg Atorvastatin Calcium (Lipitor -) 10 mg PO HS [facility] Last Admin: 05/19/19 22:21 Dose: 10 mg Clonazepam (Klonopin -) 0.25 mg PO BID PRN PRN Reason: ANXIETY Last Admin: 05/19/19 22:20 Dose: 0.25 mg Digoxin (Lanoxin -) 0.125 mg PO DAILY [facility] Last Admin: 05/20/19 10:06 Dose: 0.125 mg Diltiazem HCl (Cardizem Cd -) 300 mg PO DAILY [facility] Last Admin: 05/20/19 10:07 Dose: 300 mg Ceftriaxone Sodium 1 gm/ (Dextrose) 50 mls @ 100 mls/hr IVPB DAILY [facility] Last Admin: 05/20/19 09:27 Dose: 100 mls/hr Famotidine/Sodium Chloride (Pepcid 20 Mg Premixed Ivpb -) 20 mg in 50 mls @ 100 mls/hr IVPB BID [facility] Last Admin: 05/20/19 09:27 Dose: 100 mls/hr Metformin HCl (Glucophage -) 500 mg PO BID@0700,1630 [facility] Last Admin: 05/20/19 10:06 Dose: 500 mg Methylprednisolone Sodium Succinate (Solu-Medrol -) 40 mg IVPUSH Q12H [facility] Last Admin: 05/20/19 09:27 Dose: 40 mg Roflumilast (Daliresp -) 500 mcg PO DAILY [facility] Last Admin: 05/20/19 10:07 Dose: 500 mcg CBC, BMP 05/18/19 06:40 05/18/19 06:40 Microbiology 05/17/19 15:55 Urine Culture - Final Urine - Urine Clean Catch Enterobacter Aerogenes Physical Exam S1 S2 RRR lungs decreased breath sounds--scattered wheezes Abd-soft, NT no edema alert/ awake PLAN Better tapering solumedrol continue with ceftriaxone and zithromax nebs as needed Anticipate d/c tomorrow if better will follow Problem List - Problems (1) Paroxysmal A-fib Code(s): I48.0 - PAROXYSMAL ATRIAL FIBRILLATION (2) COPD (chronic obstructive pulmonary disease) with acute bronchitis Code(s): J44.0 - CHRONIC OBSTRUCTIVE PULMON DISEASE W ACUTE LOWER RESP INFCT (3) Dyspnea Code(s): R06.00 - DYSPNEA, UNSPECIFIED Qualifiers: Dyspnea type: dyspnea on exertion Qualified Code(s): R06.09 - Other forms of dyspnea (4) Abscess Code(s): L02.91 - CUTANEOUS ABSCESS, UNSPECIFIED (5) COPD exacerbation Code(s): J44.1 - CHRONIC OBSTRUCTIVE PULMONARY DISEASE W (ACUTE) EXACERBATION (6) HTN (hypertension) Code(s): I10 - ESSENTIAL (PRIMARY) HYPERTENSION Qualifiers: Hypertension type: essential hypertension Qualified Code(s): I10 - Essential (primary) hypertension
[2019-05-20] MEDS ORDERED: methylPREDNISolone NA SUCC 40 MG/1 ML VIAL IVPUSH SCH (12:54)
[2019-05-20] MEDS: ATORVASTATIN CA 10 MG TABLET (FP) PO SCH (21:50)
[2019-05-20] MEDS: AMITRIPTYLINE HCL 25 MG TABLET (FP) PO SCH (21:50)
[2019-05-20] MEDS: clonazePAM 0.5 MG TABLET PO PRN (21:51)
[2019-05-21] MEDS: metFORMIN HCL 500 MG TABLET (FP) PO SCH (06:49)
[2019-05-21] MEDS: ALBUTEROL SO4 2.5/IPRATROPIUM 0.5 INH SOL 3 ML VIAL.NEB. NEB SCH ×2 (08:20→12:00)
[2019-05-21] MEDS ORDERED: cefTRIAXone SODIUM 1 GM VIAL ONE (08:48)
[2019-05-21] MEDS ORDERED: PT OWN MED DRAWER 7, Y5N ONE (08:48)
[2019-05-21] MEDS ORDERED: DEXTROSE 5%-WATER - 50 ML IVPB ONE (08:48)
[2019-05-21] MEDS: ROFLUMILAST 500 MCG TABLET PO SCH (09:01)
[2019-05-21] MEDS: APIXABAN 5 MG TABLET PO SCH (09:01)
[2019-05-21] MEDS: DIGOXIN 0.125 MG TABLET (FP) PO SCH (09:01)
[2019-05-21 09:02] VITALS: PULSE 74
[2019-05-21] MEDS: FAMOTIDINE 20 MG/50 ML IVPB 20 MG/50 ML MG IVPB SCH (09:02)
[2019-05-21] MEDS: CEFTRIAXONE 1 GM in DEXTROSE 5%-WATER - 50 ML IVPB SCH (09:36)
[2019-05-21 10:54] VITALS: BP 142/71; TEMP 98.2
--- NOTE | 2019-05-21 11:00 | DS ---
Physical Examination Vital Signs: Vital Signs Temperature 98.2 F 05/21/19 10:00 Pulse Rate 74 05/21/19 10:00 Respiratory Rate 18 05/21/19 10:00 Blood Pressure 142/71 05/21/19 10:00 O2 Sat by Pulse Oximetry (%) 99 05/21/19 09:00 Constitutional: Yes: No Distress, Calm Cardiovascular: Yes: Regular Rate and Rhythm Respiratory: Yes: Diminished Gastrointestinal: Yes: Normal Bowel Sounds, Soft. No: Tenderness Edema: No Labs: CBC, BMP 05/18/19 06:40 05/18/19 06:40 Discharge Summary Problems reviewed: Yes Reason For Visit: UTI OBSTRUCTIOVE CHRONIC BRONCHITIS WITH EXACERBAT Current Active Problems COPD (chronic obstructive pulmonary disease) with acute bronchitis (Acute) COPD exacerbation (Acute) Dyspnea (Acute) Paroxysmal A-fib (Acute) Pneumonia (Acute) UTI (urinary tract infection) (Acute) Hospital Course: Pt was admitted with COPD exacerbation-- failed outpatient steroid course CXR negative Was started on Solumedrol and antibiotics Seen by Pulmonary felt better after iv solumedrol and antibiotics clinically stable for dc home follow up with me in office in 2 weeks Pulmonary- 2 weeks Condition: Stable - Instructions Disposition: HOME - Home Medications Comprehensive Discharge Medication List: Ambulatory Orders metFORMIN HCL [Glucophage -] 500 mg PO BID@0700,1630 #90 tablet 05/15/18 Albuterol 0.083% Nebulizer Grace [Ventolin 0.083%] 1 neb NEB Q4H PRN 05/17/19 Amitriptyline HCl 25 mg PO HS 05/17/19 Apixaban [Eliquis] 5 mg PO BID 05/17/19 Atorvastatin Calcium [Lipitor] 10 mg PO HS 05/17/19 Cholecalciferol (Vitamin D3) [Vitamin D3 -] 2,000 unit PO DAILY 05/17/19 Cyanocobalamin [Vitamin B12 -] 1,000 mcg PO DAILY 05/17/19 Cyclosporine [Restasis] 1 each OP BID 05/17/19 Digoxin [Lanoxin -] 0.125 mg PO DAILY 05/17/19 Diltiazem Cd [Cardizem Cd -] 300 mg PO DAILY 05/17/19 Fluticasone/Vilanterol [Breo Ellipta 200-25 Mcg INH] 1 each IH DAILY 05/17/19 Levalbuterol Tartrate [Xopenex Hfa] 1 puff IH BID PRN 05/17/19 [place]-3S/Dha/Epa/Fish Oil [Fish Oil 1,000 mg Softgel] 1 each PO DAILY 05/17/19 Polyvinyl Alcohol [Artificial Tears] 1 drop OD QID 05/17/19 Prednisolone Acetate/Pf [Prednisolone Acet 1% Eye Drop] 5 ml OP TID PRN Roflumilast [Daliresp -] 500 mcg PO DAILY 05/17/19 Tiotropium [place] [Spiriva] 18 mcg IH DAILY 05/17/19 clonazePAM [Klonopin -] 0.5 mg PO PRN PRN 05/17/19
== END 2019-05-21 13:22 | disposition home or self-care (01) | DRG 191 ==
LOC: JER 13:20 → JERBED 16:10 → J4S 18:51
PROVIDERS: ADMIT Internal Medicine; ATTEND Internal Medicine
DX: J44.1 Chronic obstructive pulmonary disease with (acute) exacerbation (principal); J98.11 Atelectasis; N39.0 Urinary tract infection, site not specified; J44.9 Chronic obstructive pulmonary disease, unspecified; L02.91 Cutaneous abscess, unspecified; I10 Essential (primary) hypertension; E78.5 Hyperlipidemia, unspecified; D51.9 Vitamin B12 deficiency anemia, unspecified; F41.9 Anxiety disorder, unspecified; I48.0 Paroxysmal atrial fibrillation; B96.89 Other specified bacterial agents as the cause of diseases classified elsewhere; Z86.711 Personal history of pulmonary embolism; Z86.718 Personal history of other venous thrombosis and embolism
CPT/HCPCS: 36415; 71046-TC-FY; 80053; 81003; 82550; 82962; 83880; 84484; 85025; 85610; 87086; 87186; 93005; 93010; 94010; 94640; 99283-25

== ENCOUNTER 2019-06-12 15:44 | Inpatient (IN) | payer OTHER, BC ==
[2019-06-12] MEDS ORDERED: methylPREDNISolone NA SUCC 125 MG/2 ML VIAL IVPB ONE (15:48)
[2019-06-12] MEDS ORDERED: ALBUTEROL SO4 0.083% IH SOL 2.5 MG/3 ML VIAL.NEB. NEB ONE ×2 (15:49→16:58)
--- NOTE | 2019-06-12 15:53 | PDOC ---
Rapid Medical Evaluation Chief Complaint: Shortness of Breath Time Seen by Provider: 06/12/19 15:47 Medical Evaluation: Allergies Allergy/AdvReac Type Severity Reaction Status Date / Time Penicillins Allergy Hives Verified 06/12/19 15:48 Sulfa (Sulfonamide Allergy Hives Verified 06/12/19 15:48 Antibiotics) [Sulfa(Sulfonamide Antibiotics)] Vital Signs Temp Pulse Resp BP Pulse Ox 98.1 F 102 H 19 111/75 97 06/12/19 15:45 06/12/19 15:45 06/12/19 15:45 06/12/19 15:45 06/12/19 15:45 06/12/19 15:52 Pt c/o: increased sob despite nebs, inhalers and steroids, hx copd and pe, on eliquis Pt on brief exam: decreased bs to edson lobes on expiration Pt ordered for: labs, ekg, meds, and cxr Pt to proceed to the ED Discharge Disposition - Diagnosis Shortness of breath, COPD exacerbation - Referrals - Patient Instructions - Post Discharge Activity
[2019-06-12] MEDS ORDERED: methylPREDNISolone NA SUCC 125 MG/2 ML VIAL ONE (16:58)
[2019-06-12] MEDS ORDERED: ALBUTEROL SO4 2.5/IPRATROPIUM 0.5 INH SOL 3 ML VIAL.NEB. NEB ONE (17:00)
[2019-06-12 17:11] LABS: BASO % 0.5 % (0-2.0); HEMATOCRIT 32.2 % (32.4-45.2); HEMOGLOBIN 9.4 GM/dL (10.7-15.3); LYMPH % 5.4 % (8-40); MCH 22.3 pg (25.7-33.7); MCHC 29.1 g/dl (32.0-36.0); MEAN CELL VOLUME 76.6 fl (80-96); MEAN PLT VOLUME 7.6 fl (7.5-11.1); MONO % 0.3 % (3.8-10.2); NEUT % 93.8 % (42.8-82.8); PLATELET COUNT 523 K/MM3 (134-434); RBC 4.21 M/mm3 (3.60-5.2); RDW 19.5 % (11.6-15.6); WHITE BLOOD COUNT 18.6 K/mm3 (4.0-10.0)
[2019-06-12] MEDS ORDERED: IPRATROPIUM BR 0.02% 0.5 MG/2.5 ML VIAL.NEB. NEB ONE ×2 (17:11→17:26)
[2019-06-12 17:24] LABS: INR 1.38 (0.83-1.09); PROTHROMBIN TIME (PATIENT) 16.3 SEC (9.7-13.0)
--- NOTE | 2019-06-12 17:26 | PDOC ---
History of Present Illness - General Chief Complaint: Shortness of Breath Stated Complaint: TROUBLE BREATHING/COPD Time Seen by Provider: 06/12/19 15:47 History Source: Patient Exam Limitations: No Limitations - History of Present Illness Initial Comments: 06/12/19 17:23 Kathi Mclain is a 59F with PMH COPD s/p extensive smoking history quit 2012, PE on Eliquis, newly diagnosed AFIB presenting with worsening SOB on prednisone taper. Patient recently discharged [facility] for COPD exacerbation. F/u with PMD Dr. Cristal Ludwig who started her on prednisone taper, started at 60mg QD and decreased down to 40mg. Yesterday and today has been having worsening dyspnea and less able to move air, upped her prednisone dose back to 60mg but this did not help. Took 2x Xopenex nebs today with no improvement. No history of ICU admission/intubation/BiPap use, not on home oxygen. Denies recent illness, fever/chills, N/V/C/D, fever, sick contacts, got flu shot with Dr. Ludwig 2 weeks ago. denies chest pain, abd pain, urinary sx. Able to ambulate without significant SOB, no difficulty speaking. Diagnosed with PE via CTA at OSH before she moved back to [place] 2 months ago, had RUE blood clot prior and had PE despite Eliquis. Initially on coumadin but patient did not like it, switched to 5mg bid Eliquis about 2months ago. New onset AFIB, sees Dr. Mulligan, has Ziopatch placed, denies palpitations at this time. Past History - Past Medical History Allergies/Adverse Reactions: Allergies Allergy/AdvReac Type Severity Reaction Status Date / Time Penicillins Allergy Hives Verified 06/12/19 15:48 Sulfa (Sulfonamide Allergy Hives Verified 06/12/19 15:48 Antibiotics) [Sulfa(Sulfonamide Antibiotics)] Home Medications: Ambulatory Orders metFORMIN HCL [Glucophage -] 500 mg PO BID@0700,1630 #90 tablet 05/15/18 Apixaban [Eliquis] 5 mg PO BID 05/17/19 Atorvastatin Calcium [Lipitor] 10 mg PO HS 05/17/19 Cholecalciferol (Vitamin D3) [Vitamin D -] 2,000 unit PO DAILY 05/17/19 Cyanocobalamin [Vitamin B12 -] 1,000 mcg PO DAILY 05/17/19 Cyclosporine [Restasis] 1 each OP BID 05/17/19 Diltiazem Cd [Cardizem Cd -] 300 mg PO DAILY 05/17/19 Fluticasone/Vilanterol [Breo Ellipta 200-25 Mcg INH] 1 each IH DAILY 05/17/19 Levalbuterol Tartrate [Xopenex Hfa] 1 puff IH BID PRN 05/17/19 [place]-3S/Dha/Epa/Fish Oil [Fish Oil 1,000 mg Softgel] 1 each PO DAILY 05/17/19 Polyvinyl Alcohol [Artificial Tears] 1 drop OD QID 05/17/19 Prednisolone Acetate/Pf [Prednisolone Acet 1% Eye Drop] 5 ml OP TID PRN Roflumilast [Daliresp -] 500 mcg PO DAILY 05/17/19 Tiotropium [place] [Spiriva] 18 mcg IH DAILY 05/17/19 clonazePAM [Klonopin -] 0.5 mg PO PRN PRN 05/17/19 Amitriptyline HCl [Elavil -] 50 mg PO HS tablet 05/21/19 Cefuroxime Axetil [Ceftin -] 500 mg PO Q12H #8 tablet 05/21/19 predniSONE [Deltasone -] See Taper PO ASDIR #60 tab 05/21/19 Anemia: No Asthma: Yes Cancer: No Cardiac Disorders: Yes (Tachycardia) CVA: No COPD: Yes CHF: No DVT: No Dementia: No Diabetes: Yes (BORDERLINE) GI Disorders: Yes (GERD) Disorders: No HTN: Yes Hypercholesterolemia: Yes Liver Disease: No Seizures: No Thyroid Disease: Yes (NODULES) Other medical history: PE, DVT On Eliquis - Surgical History Abdominal Surgery: Yes (POLYP REMOVED FROM UTERUS 09/06/13) Appendectomy: No Cardiac Surgery: No Cholecystectomy: No GI Surgery: Yes (umbilical hernia/wound vac) Lung Surgery: No Neurologic Surgery: No Orthopedic Surgery: Yes (BUNION REMOVAL RT FOOT 2013) - Immunization History Immunization Up to Date: Yes - Psycho Social/Smoking Cessation Hx Smoking Status: Yes Smoking History: Never smoked Have you smoked in the past 12 months: No Number of Cigarettes Smoked Daily: 0 If you are a former smoker, when did you quit?: 2012 Information on smoking cessation initiated: No 'Breaking Loose' booklet given: 10/28/13 Hx Alcohol Use: No Drug/Substance Use Hx: No Substance Use Type: None Hx Substance Use Treatment: No Review of Systems - Review of Systems Able to Perform ROS?: Yes Constitutional: No: Chills, Fever, Weakness HEENTM: No: Symptoms Reported Respiratory: Yes: Shortness of Breath, SOB at Rest. No: SOB with Exertion Cardiac (ROS): Yes: Irregular Heart Rate. No: Chest Pain, Palpitations ABD/GI: No: Constipated, Diarrhea, Nausea, Vomiting : No: Symptoms Reported Musculoskeletal: No: Symptoms Reported Integumentary: No: Symptoms Reported Neurological: No: Symptoms reported Endocrine: No: Symptoms Reported Hematologic/Lymphatic: No: Symptoms Reported All Other Systems: Reviewed and Negative *Physical Exam - Vital Signs Last Vital Signs Temp Pulse Resp BP Pulse Ox 98.1 F 102 H 19 111/75 97 06/12/19 15:45 06/12/19 15:45 06/12/19 15:45 06/12/19 15:45 06/12/19 15:45 - Physical Exam General Appearance: Yes: Nourished, Appropriately Dressed. No: Apparent Distress HEENT: positive: EOMI, EMMY, Normal Voice, Symmetrical, Pharynx Normal. negative: Scleral Icterus (R), Scleral Icterus (L), Muffled/Hoarse voice, Pharyngeal Erythema, Tonsillar Exudate, Tonsillar Erythema Neck: positive: Trachea midline, Supple. negative: Tender, Rigid, Stridor, Lymphadenopathy (R), Lymphadenopathy (L), Rigidity Respiratory/Chest: positive: Normal Breath Sounds, Wheezing (quiet expiratory wheezing to all lung currie), Other (satting 94% on room air). negative: Chest Tender, Respiratory Distress, Accessory Muscle Use, Labored Respiration, Crackles Cardiovascular: positive: Regular Rhythm, Regular Rate. negative: Murmur Gastrointestinal/Abdominal: positive: Normal Bowel Sounds, Flat, Soft. negative : Tender, Guarding, Rebound Musculoskeletal: positive: Normal Inspection. negative: CVA Tenderness Extremity: positive: Normal Capillary Refill, Normal Inspection, Normal Range of Motion. negative: Tender, Pelvis Stable Integumentary: positive: Normal Color, Dry, Warm Neurologic: positive: Alert, Normal Mood/Affect. negative: Normal Response ED Treatment Course - LABORATORY CBC & Chemistry Diagram: 06/12/19 16:50 06/12/19 16:50 - ADDITIONAL ORDERS Additional order review: 06/12/19 16:50 RBC 4.21 MCV 76.6 L MCHC 29.1 L RDW 19.5 H MPV 7.6 Neutrophils % 93.8 H Lymphocytes % 5.4 L D Monocytes % 0.3 L Eosinophils % 0.0 Basophils % 0.5 - Medications Given in the ED: ED Medications Discontinued Medications Generic Name Dose Route Start Last Admin Trade Name Francheska PRN Reason Stop Dose Admin Albuterol Sulfate 1 amp 06/12/19 15:49 06/12/19 17:01 Ventolin 0.083% Nebulizer Soln - NEB 06/12/19 15:50 1 amp ONCE ONE Administration Methylprednisolone Sodium Succinate 125 mg 06/12/19 15:48 06/12/19 17:01 Solu-Medrol - IVPB 06/12/19 15:49 125 mg ONCE ONE Administration Medical Decision Making - Medical Decision Making 06/12/19 17:23 Kathi Mclain is a 59F with PMH COPD s/p extensive smoking history quit 2012, PE on Eliquis, newly diagnosed AFIB presenting with worsening SOB on prednisone taper. Patient presentation consistent with COPD exacerbation, has dyspnea with expiratory wheezing to all currie bilaterally, known history COPD on steroids and nebs. However, has known clot disease and diagnosed with PE despite Eliquis use, needs further evaluation with CTA given outpatient NOAC non-response. Evaluating via: CMP CBC ECG CXR PT/INR/PTT giving 1x Duonebs and 125 solumedrol for COPD exacerbation CTA ordered pending Cr. 06/12/19 18:04 ECG done in triage shows NSR with sinus arrhythmia, HR 87, QTc 392. Patient did not want albuterol half of Duonebs 2/2 tachycardia, giving one amp ipratropium 06/12/19 18:07 Labs notable for: INR 1.38 WBC 18.3, possibly 2/2 steroid use but cannot rule out infectious etiology CXR prelim exam grossly normal Ordering CTA chest Cr 0.9 and eGFR 81 Pre-test probability of PE high, patient tachycardic with known PE history Need to evaluate if worsening dyspnea is due to worsening COPD vs. PE vs. PNA. No strong evidence of PNA other than WBC 18, which can be 2/2 to steroid use but could also be evidence of infectious process. Patient understands plan. 06/12/19 19:[address] Olson, plan for CTA and dispo planning after resulted. Discharge - Discharge Information Problems reviewed: Yes Clinical Impression/Diagnosis: Shortness of breath, COPD exacerbation - Follow up/Referral Referrals: Cristal Ludwig MD [Primary Care Provider] - - Patient Discharge Instructions - Post Discharge Activity
[2019-06-12 17:56] LABS: ALBUMIN 3.3 g/dl (3.4-5.0); BILIRUBIN,TOTAL 0.5 mg/dL (0.2-1); BLOOD UREA NITROGEN 13.1 mg/dL (7-18); CREATININE 0.9 mg/dL (0.55-1.3); POTASSIUM 4.5 mmol/L (3.5-5.1); TOT PROT 6.5 g/dl (6.4-8.2)
--- NOTE | 2019-06-12 18:07 | PDOC ---
Documentation entered by Christoph Martinez SCRIBE, acting as scribe for Joyce James DO. Joyce James, DO: This documentation has been prepared by the Juan golden Daniel, SCRIBE, under my direction and personally reviewed by me in its entirety. I confirm that the documentation accurately reflects all work, treatment, procedures, and medical decision making performed by me. Attending Attestation - Resident Resident Name: Jalil Fritz - ED Attending Attestation I have performed the following: I have examined & evaluated the patient, The case was reviewed & discussed with the resident, I agree w/resident's findings & plan, Exceptions are as noted - HPI HPI: 06/12/19 17:24 The patient is a 59 year old female with a past medical history of COPD, afib, and PE (on eliquis) here today for evaluation of worsening shortness of breath. The patient reports that she has been on a 2 week taper dose of prednisone for COPD exacerbation. She notes that for the past 2 days she has had worsening shortness of breath and has taken 60 of prednisone and 2 nebulizer treatments with no improvement. Patient denies headache, lightheadedness. Denies fever, chills. Denies chest pain. Denies nausea, vomiting, diarrhea, abdominal pain. Allergies: penicillins, sulfa PCP: Cristal Ludwig - Physicial Exam PE: 06/12/19 17:47 Constitutional: Awake, alert, oriented. No acute distress. Head: Normocephalic. Atraumatic Eyes: +mild proptosis of both eyes. PERRL. EOMI. Conjunctivae are not pale. ENT: Mucous membranes are moist and intact. Posterior pharynx without exudates or erythema. Uvula midline. Neck: Supple. Full ROM. No lymphadenopathy. Cardiovascular: Regular rate. Regular rhythm. S1, S2 regular. Distal pulses are 2+ and symmetric. Pulmonary/Chest: +bilateral wheezing and diminished breath sounds in the right base. Speaking in full sentences. No evidence of respiratory distress. No rales or rhonchi. Abdominal: Soft and non-distended. There is no tenderness. No rebound, guarding or rigidity. No organomegaly. No palpable masses. Good bowel sounds. Back: No CVA tenderness. Musculoskeletal: No edema. No cyanosis. No clubbing. Full range of motion in all extremities. Nocalf tenderness. Radial/pedal pulses are intact and 2+ bilaterally Skin: Skin is warm and dry. No petechiae. No purpura. Neurological: Alert and oriented to person, place, and time. Cranial nerves II -XII are grossly intact. Normal speech. Strength is grossly symmetric. No sensory deficits. Psychiatric: Good eye contact. Normal interaction, affect and behavior. - Medical Decision Making 06/12/19 18:02 I, Dr. Joyce James, DO, attest that this document has been prepared under my direction and personally reviewed by me in its entirety. I further attest, that it accurately reflects all work, treatment, procedures and medical decision -making performed by me. a/p: 59yo female with hx of copd and PE - on eliquis with increasing sob despite long taper of prednisone by her PMD -pt with wheezing and increasing sob x 2 days since going to 40mg -re-increased herself to 60mg of prednisone without improvement -appt with Sandra next week -no fevers -+dry cough -no cp -difficulty catching her breath -pt also with dx of PE in the past at [facility] - was on eliquis when she developed the PE, switched to coumadin, she didn't like the coumadin and the lab tests and switched herself back to eliquis. Concern for NOAC nonresponder -given increasing sob will obtain cta chest for PE -will monitor and reassess -will most likely need admission for copd/sob 06/12/19 18:06 wbc 18 - poss steroids vs pna cxr clear pending ct 06/12/19 20:31 pt without acute pe emphysema wheezing, sob failed outpt management will need admission for copd exacerbation 06/12/19 20:[address] Cristal Ludwig - will admit to adjusthoil covering tonight and place consult to Dr. Hensley 06/12/19 21:41 resident discussed the case with JUAN mariscal who accepts pt under dr. mariscal Heart Score/ECG Review - ECG Intrepretation Comment:: 06/12/19 18:06 sinus at 87, nl axis, nl interval, no acute st/t wave findings
[2019-06-12] MEDS ORDERED: LEVALBUTEROL HCL 0.63 MG/3 ML VIAL.NEB. IH ONE (18:12)
[2019-06-12 18:23] LABS: ANISOCYTOSIS 2+
--- NOTE | 2019-06-12 19:08 | PDOC ---
*Physical Exam - Vital Signs Last Vital Signs Temp Pulse Resp BP Pulse Ox 98.1 F 102 H 19 111/75 97 06/12/19 15:45 06/12/19 15:45 06/12/19 15:45 06/12/19 15:45 06/12/19 15:45 ED Treatment Course - LABORATORY CBC & Chemistry Diagram: 06/13/19 06:00 06/13/19 06:00 - ADDITIONAL ORDERS Additional order review: Laboratory Results 06/12/19 06/12/19 06/12/19 16:50 16:50 16:50 PT with INR 16.30 H INR 1.38 H PTT (Actin FS) 27.4 Sodium 140 Potassium 4.5 Chloride 106 Carbon Dioxide 23 Anion Gap 11 BUN 13.1 Creatinine 0.9 Est GFR (CKD-EPI)AfAm 81.11 Est GFR (CKD-EPI)NonAf 69.99 Random Glucose 133 H Calcium 9.0 Total Bilirubin 0.5 AST 13 L ALT 14 Alkaline Phosphatase 103 Creatine Kinase Troponin I Total Protein 6.5 Albumin 3.3 L 06/12/19 16:50 PT with INR INR PTT (Actin FS) Sodium Potassium Chloride Carbon Dioxide Anion Gap BUN Creatinine Est GFR (CKD-EPI)AfAm Est GFR (CKD-EPI)NonAf Random Glucose Calcium Total Bilirubin AST ALT Alkaline Phosphatase Creatine Kinase 57 Troponin I < 0.02 Total Protein Albumin 06/12/19 16:50 RBC 4.21 MCV 76.6 L MCHC 29.1 L RDW 19.5 H MPV 7.6 Neutrophils % 93.8 H Lymphocytes % 5.4 L D Monocytes % 0.3 L Eosinophils % 0.0 Basophils % 0.5 - Medications Given in the ED: ED Medications Discontinued Medications Generic Name Dose Route Start Last Admin Trade Name Freq PRN Reason Stop Dose Admin Albuterol Sulfate 1 amp 06/12/19 15:49 06/12/19 17:01 Ventolin 0.083% Nebulizer Soln - NEB 06/12/19 15:50 1 amp ONCE ONE Administration Albuterol/Ipratropium 1 amp 06/12/19 17:00 06/12/19 17:56 Duoneb - NEB 06/12/19 17:01 Not Given ONCE ONE Ipratropium [place] 1 amp 06/12/19 17:26 06/12/19 17:56 Atrovent 0.02% Nebulizer - NEB 06/12/19 17:27 1 amp ONCE ONE Administration Methylprednisolone Sodium Succinate 125 mg 06/12/19 15:48 06/12/19 17:01 Solu-Medrol - IVPB 06/12/19 15:49 125 mg ONCE ONE Administration Medical Decision Making - Medical Decision Making 06/12/19 19:[address] Fritz 59 y/o F hx copd, p.e on eloquis, new onset Afib recently discharged for copd exacerbation discharged end of april. Still on prednisone taper presented to ED with worsening shortness of breath copd exacerbation vs p.e Creatinine 0.9 chest cta pending admit: copd vs p.e 06/12/19 20:[address] evidence of pulmonary embolisms peripheral pulmonary vasculature evaluation ltd no gross peripheral emboli visualized. correlation with bilateral lower extremity venous sonography may be performed. Pt will be admitted for copd exacerbation and failing outpatient treatment. - Given azithromycin 500mg IV and solumedrol 40mg IV. 06/12/19 20:38 microblog sent for admission 06/19/19 09:55 Discharge - Discharge Information Problems reviewed: Yes Clinical Impression/Diagnosis: Shortness of breath, COPD exacerbation Condition: Improved Disposition: HOME - Follow up/Referral - Patient Discharge Instructions - Post Discharge Activity
[2019-06-12] MEDS ORDERED: methylPREDNISolone NA SUCC 40 MG/1 ML VIAL IVPUSH ONE (20:33)
[2019-06-12] MEDS ORDERED: AZITHROMYCIN IVPB 500 MG in DEXTROSE 5%-WATER - 250 ML IVPB ONE (20:33)
[2019-06-12] MEDS ORDERED: AZITHROMYCIN IVPB 500 MG/250 ML BAG IVPB ONE (20:47)
--- NOTE | 2019-06-13 00:04 | HP ---
Admitting History and Physical - Primary Care Physician PCP: Dr. Dixon - Admission Chief Complaint: SOB History of Present Illness: 59 year old female with PMH of COPD, A-fib, h/o RUE DVT (on eliquis) arrived to ED for evaluation of worsening shortness of breath. The patient reports that she has been on a 2 week taper dose of prednisone for COPD exacerbation, however noted with worsening shortness of breath. Patient failed outpatient treatment. Patient also stated she had new onset AFIB, sees Dr. Mulligan, has Ziopatch placed, denies palpitations at this time. Patient denies headache, lightheadedness. Denies fever, chills. Denies chest pain. Denies nausea, vomiting, diarrhea, abdominal pain. History Source: Patient Limitations to Obtaining History: No Limitations - Past Medical History Cardiovascular: Yes: AFIB, HTN, Hyperlipdemia Pulmonary: Yes: COPD Gastrointestinal: Yes: GERD, Other (HERNIA REPAIR WITH COMPLICATIONS AND POST OP SBO) ...LMP: 08/04/13 Heme/Onc: Yes: B12 Deficiency Psych: Yes: Anxiety Musculoskeletal: Yes: Osteoarthritis Rheumatology: Yes: Other (OSTEOARTHRITIS) Endocrine: Yes: Diabetes Mellitus - Past Surgical History Past Surgical History: Yes: Hernia Repair Additional Past Surgical History: BUNION REMOVAL RT FOOT 2013, umbilical hernia/wound vac, POLYP REMOVED FROM UTERUS 09/06/13) - Smoking History Smoking history: Never smoked Have you smoked in the past 12 months: No Aproximately how many cigarettes per day: 0 If you are a former smoker, when did you quit?: 2013 - Alcohol/Substance Use Hx Alcohol Use: No History of Substance Use: reports: None - Social History ADL: Independent History of Recent Travel: No Home Medications - Allergies Allergies/Adverse Reactions: Allergies Allergy/AdvReac Type Severity Reaction Status Date / Time Penicillins Allergy Hives Verified 06/12/19 15:48 Sulfa (Sulfonamide Allergy Hives Verified 06/12/19 15:48 Antibiotics) [Sulfa(Sulfonamide Antibiotics)] - Home Medications Home Medications: Ambulatory Orders metFORMIN HCL [Glucophage -] 500 mg PO BID@0700,1630 #90 tablet 05/15/18 Apixaban [Eliquis] 5 mg PO BID 05/17/19 Atorvastatin Calcium [Lipitor] 10 mg PO HS 05/17/19 Cholecalciferol (Vitamin D3) [Vitamin D -] 2,000 unit PO DAILY 05/17/19 Cyanocobalamin [Vitamin B12 -] 1,000 mcg PO DAILY 05/17/19 Cyclosporine [Restasis] 1 each OP BID 05/17/19 Diltiazem Cd [Cardizem Cd -] 300 mg PO DAILY 05/17/19 Fluticasone/Vilanterol [Breo Ellipta 200-25 Mcg INH] 1 each IH DAILY 05/17/19 Levalbuterol Tartrate [Xopenex Hfa] 1 puff IH BID PRN 05/17/19 [place]-3S/Dha/Epa/Fish Oil [Fish Oil 1,000 mg Softgel] 1 each PO DAILY 05/17/19 Polyvinyl Alcohol [Artificial Tears] 1 drop OD QID 05/17/19 Prednisolone Acetate/Pf [Prednisolone Acet 1% Eye Drop] 5 ml OP TID PRN Roflumilast [Daliresp -] 500 mcg PO DAILY 05/17/19 Tiotropium [place] [Spiriva] 18 mcg IH DAILY 05/17/19 clonazePAM [Klonopin -] 0.5 mg PO PRN PRN 05/17/19 Amitriptyline HCl [Elavil -] 50 mg PO HS tablet 05/21/19 Cefuroxime Axetil [Ceftin -] 500 mg PO Q12H #8 tablet 05/21/19 predniSONE [Deltasone -] See Taper PO ASDIR #60 tab 05/21/19 Family Medical History Family History: Denies Review of Systems - Review of Systems Constitutional: reports: No Symptoms Eyes: reports: No Symptoms HENT: reports: No Symptoms Neck: reports: No Symptoms Cardiovascular: reports: No Symptoms Respiratory: reports: SOB, SOB on Exertion, Wheezing Gastrointestinal: reports: No Symptoms Genitourinary: reports: No Symptoms Musculoskeletal: reports: No Symptoms Integumentary: reports: No Symptoms Neurological: reports: No Symptoms Endocrine: reports: No Symptoms Psychiatric: reports: No Symptoms Physical Examination Vital Signs: Vital Signs Temperature 98.1 F 06/12/19 15:45 Pulse Rate 95 H 06/12/19 20:52 Respiratory Rate 20 06/12/19 20:52 Blood Pressure 139/74 06/12/19 20:52 O2 Sat by Pulse Oximetry (%) 97 06/12/19 15:45 Constitutional: Yes: No Distress, Calm Eyes: Yes: Conjunctiva Clear, EOM Intact HENT: Yes: Atraumatic, Normocephalic Neck: Yes: Supple, Trachea Midline Cardiovascular: Yes: Regular Rate and Rhythm Respiratory: Yes: Regular, Wheezes Gastrointestinal: Yes: Normal Bowel Sounds, Soft Musculoskeletal: Yes: WNL Extremities: Yes: WNL Edema: No Peripheral Pulses WNL: Yes Neurological: Yes: Alert, Oriented Labs: CBC, BMP 06/12/19 16:50 06/12/19 16:50 Imaging - Results Chest X-ray: Report Reviewed (CXR: no acute pathology) Cat Scan: Report Reviewed (CTA: No definite ct evidence of pulmonary embolisms peripheral pulmonary vasculature evaluation ltd no gross peripheral emboli visualized.) EKG: Report Reviewed (ECG: NSR with sinus arrhythmia, HR 87, QTc 392.) Other: Report Reviewed (WBC 18.3 ?possibly 2/2 steroid rule out infectious etiology) Problem List - Problems (1) Acute exacerbation of chronic obstructive pulmonary disease (COPD) Code(s): J44.1 - CHRONIC OBSTRUCTIVE PULMONARY DISEASE W (ACUTE) EXACERBATION (2) Anxiety Code(s): F41.9 - ANXIETY DISORDER, UNSPECIFIED (3) HLD (hyperlipidemia) Code(s): E78.5 - HYPERLIPIDEMIA, UNSPECIFIED (4) HTN (hypertension) Code(s): I10 - ESSENTIAL (PRIMARY) HYPERTENSION Qualifiers: Hypertension type: essential hypertension Qualified Code(s): I10 - Essential (primary) hypertension (5) Paroxysmal A-fib Code(s): I48.0 - PAROXYSMAL ATRIAL FIBRILLATION Assessment/Plan 59 year old female with PMH of COPD, A-fib, h/o RUE DVT (on eliquis), Anxiety arrived to ED for evaluation of worsening shortness of breath. The patient reports that she has been on a 2 week taper dose of prednisone for COPD exacerbation, however noted with worsening shortness of breath. Patient failed outpatient treatment. Patient also stated she had new onset AFIB, sees Dr. Mulligan, has Ziopatch placed, denies palpitations at this time. # Acute COPD exacerbation - CTA: no evidence of PE, minimal basilar bronchiectasis - WBC 18.3 ? due steroid use vs ? infectious etiology - CXR : no acute infiltrate -In ED given: Duonebs , 125mg solumedrol, Azithromyicn and levofloxacin for COPD exacerbation - continue with solumedrol 40mg Q8h - continue with nebs q 4 hours - continue with levaquin 750 mg daily - continue with o2 3L/min PRN - repeat cbc w/diff, bmp - follow up ID in AM # A-fib, HTN/HLD, # ? H/o of DVT RLE - ECG : NSR with sinus arrhythmia, HR 87, QTc 392 - trop: negative - Ziopatch in place, denies chest pain, palpitations - Apixaban 5 mg PO BID - Atorvastatin Calcium 10 mg PO HS - Diltiazem Cd 300 mg PO DAILY - Roflumilast 500 mcg PO DAILY - follow up cardiology in AM # Anxiety -clonazePAM 0.5 mg PO PRN -Amitriptyline HCl 50 mg PO HS # DM - monitor FSBS TID AC - continue with novolog sliding scale Diet: NCS, LINN DVT PPX: on Eliquis Visit type - Emergency Visit Emergency Visit: Yes ED Registration Date: 06/12/19 Care time: The patient presented to the Emergency Department on the above date and was hospitalized for further evaluation of their emergent condition. - New Patient This patient is new to me today: Yes Date on this admission: 06/13/19 - Critical Care Critical Care patient: No
[2019-06-13] MEDS ORDERED: ACETAMINOPHEN 325 MG TABLET (FP) PO PRN (00:28)
[2019-06-13] MEDS ORDERED: methylPREDNISolone NA SUCC 40 MG/1 ML VIAL ONE (02:34)
[2019-06-13] MEDS: methylPREDNISolone NA SUCC 40 MG/1 ML VIAL IVPUSH SCH ×3 (03:21→17:34)
[2019-06-13 06:17] LABS: BASO % 0.1 % (0-2.0); EOS % 0.5 % (0-4.5); HEMATOCRIT 29.4 % (32.4-45.2); HEMOGLOBIN 8.9 GM/dL (10.7-15.3); MCH 22.7 pg (25.7-33.7); MCHC 30.1 g/dl (32.0-36.0); MEAN CELL VOLUME 75.3 fl (80-96); MEAN PLT VOLUME 7.2 fl (7.5-11.1); MONO % 2.6 % (3.8-10.2); NEUT % 90.8 % (42.8-82.8); PLATELET COUNT 447 K/MM3 (134-434); RBC 3.91 M/mm3 (3.60-5.2); RDW 19.7 % (11.6-15.6); WHITE BLOOD COUNT 15.1 K/mm3 (4.0-10.0)
[2019-06-13 06:42] LABS: BLOOD UREA NITROGEN 16.2 mg/dL (7-18); CALCIUM 8.7 mg/dL (8.5-10.1); CREATININE 0.7 mg/dL (0.55-1.3)
[2019-06-13] MEDS: INSULIN (NOVOLOG) ASPART 100 UNITS/ML 10ML VIAL SQ SCH ×3 (07:47→16:52)
[2019-06-13] MEDS ORDERED: ALBUTEROL SO4 2.5/IPRATROPIUM 0.5 INH SOL 3 ML VIAL.NEB. NEB ONE (08:53)
[2019-06-13] MEDS: ALBUTEROL SO4 0.083% IH SOL 2.5 MG/3 ML VIAL.NEB. NEB SCH ×4 (08:55→20:31)
[2019-06-13] MEDS: IPRATROPIUM BR 0.02% 0.5 MG/2.5 ML VIAL.NEB. NEB SCH ×4 (08:55→20:31)
[2019-06-13] MEDS ORDERED: clonazePAM 0.5 MG TABLET ONE (08:58)
[2019-06-13] MEDS: APIXABAN 5 MG TABLET PO SCH ×2 (10:17→22:36)
[2019-06-13] MEDS: ROFLUMILAST 500 MCG TABLET PO SCH (10:17)
[2019-06-13] MEDS: clonazePAM 0.5 MG TABLET PO SCH ×2 (10:17→22:36)
--- NOTE | 2019-06-13 12:18 | PN ---
Progress Note (short form) - Note Progress Note: Events noted was seen by me recently for worsening SOB,no fever Was started on prednisone 60mg -- slow taper Received iv antibiotics and solumedrol feels better slightly she has an event monitor placed by Cardiology outpt Vital Signs - 24 hr 06/12/19 06/12/19 06/13/19 15:45 20:52 06:20 Temperature 98.1 F Pulse Rate 102 H Pulse Rate [ 95 H 88 Apical] Respiratory 19 20 18 Rate Blood Pressure 111/75 Blood Pressure 139/74 129/65 [Right Arm] O2 Sat by Pulse 97 98 Oximetry (%) 06/13/19 06/13/19 06:21 10:00 Temperature 98.0 F Pulse Rate Pulse Rate [ 94 H Apical] Respiratory 18 Rate Blood Pressure Blood Pressure 144/93 [Right Arm] O2 Sat by Pulse 97 95 Oximetry (%) Current Medications Generic Name Dose Route Start Last Admin Trade Name Freq PRN Reason Stop Dose Admin Acetaminophen 650 mg 06/13/19 00:28 Tylenol - PO Q6H PRN PAIN LEVEL 1-5 Albuterol Sulfate 1 amp 06/13/19 08:00 06/13/19 09:26 Ventolin 0.083% Nebulizer Soln - NEB 1 amp RQID SANDEEP Administration Amitriptyline HCl 50 mg 06/13/19 22:00 Elavil - PO HS SANDEEP Apixaban 5 mg 06/13/19 10:00 06/13/19 10:17 Eliquis - PO 5 mg BID SANDEEP Administration Atorvastatin Calcium 10 mg 06/13/19 22:00 Lipitor - PO HS SANDEEP Clonazepam 0.5 mg 06/13/19 10:00 06/13/19 10:17 Klonopin - PO 0.5 mg BID SANDEEP Administration Diltiazem HCl 300 mg 06/13/19 10:00 06/13/19 10:17 Cardizem Cd - PO 300 mg DAILY SANDEEP Administration Levofloxacin 750 mg in 150 mls @ 150 mls/hr 06/13/19 10:00 06/13/19 10:17 Levaquin 750 Mg Premixed Ivpb - IVPB 06/19/19 23:59 150 mls/hr DAILY SANDEEP Administration Insulin Aspart 1 units 06/13/19 07:00 06/13/19 07:47 Novolog Vial SQ Not Given TIDAC SANDEEP Protocol Ipratropium [place] 1 amp 06/13/19 08:00 06/13/19 09:26 Atrovent 0.02% Nebulizer - NEB 1 amp RQID SANDEEP Administration Methylprednisolone Sodium Succinate 40 mg 06/13/19 02:00 06/13/19 10:17 Solu-Medrol - IVPUSH 40 mg Q8H-IV SANDEEP Administration Roflumilast 500 mcg 06/13/19 10:00 06/13/19 10:17 Daliresp - PO 500 mcg DAILY SANDEEP Administration Laboratory Results - last 24 hr 06/12/19 06/12/19 06/12/19 16:50 16:50 16:50 WBC 18.6 H RBC 4.21 Hgb 9.4 L Hct 32.2 L D MCV 76.6 L MCH 22.3 L MCHC 29.1 L RDW 19.5 H Plt Count 523 H MPV 7.6 Absolute Neuts (auto) 17.4 H Neutrophils % 93.8 H Neutrophils % (Manual) 89.9 H Band Neutrophils % 0.0 Lymphocytes % 5.4 L D Lymphocytes % (Manual) 5.9 L D Monocytes % 0.3 L Monocytes % (Manual) 2 L Eosinophils % 0.0 Eosinophils % (Manual) 0.0 Basophils % 0.5 Basophils % (Manual) 0.0 Myelocytes % (Man) 2 D Promyelocytes % (Man) 0 Blast Cells % (Manual) 0 Nucleated RBC % 0 Metamyelocytes 0 Anisocytosis 2+ PT with INR INR PTT (Actin FS) Sodium 140 Potassium 4.5 Chloride 106 Carbon Dioxide 23 Anion Gap 11 BUN 13.1 Creatinine 0.9 Est GFR (CKD-EPI)AfAm 81.11 Est GFR (CKD-EPI)NonAf 69.99 POC Glucometer Random Glucose 133 H Calcium 9.0 Total Bilirubin 0.5 AST 13 L ALT 14 Alkaline Phosphatase 103 Creatine Kinase 57 Troponin I < 0.02 Total Protein 6.5 Albumin 3.3 L 06/12/19 06/12/19 06/13/19 16:50 16:50 01:08 WBC RBC Hgb Hct MCV MCH MCHC RDW Plt Count MPV Absolute Neuts (auto) Neutrophils % Neutrophils % (Manual) Band Neutrophils % Lymphocytes % Lymphocytes % (Manual) Monocytes % Monocytes % (Manual) Eosinophils % Eosinophils % (Manual) Basophils % Basophils % (Manual) Myelocytes % (Man) Promyelocytes % (Man) Blast Cells % (Manual) Nucleated RBC % Metamyelocytes Anisocytosis PT with INR 16.30 H INR 1.38 H PTT (Actin FS) 27.4 Sodium Potassium Chloride Carbon Dioxide Anion Gap BUN Creatinine Est GFR (CKD-EPI)AfAm Est GFR (CKD-EPI)NonAf POC Glucometer 229 Random Glucose Calcium Total Bilirubin AST ALT Alkaline Phosphatase Creatine Kinase Troponin I Total Protein Albumin 06/13/19 06/13/19 06/13/19 06:00 06:00 11:48 WBC 15.1 H RBC 3.91 Hgb 8.9 L Hct 29.4 L MCV 75.3 L MCH 22.7 L MCHC 30.1 L RDW 19.7 H Plt Count 447 H MPV 7.2 L Absolute Neuts (auto) 13.7 H Neutrophils % 90.8 H Neutrophils % (Manual) Band Neutrophils % Lymphocytes % 6.0 L Lymphocytes % (Manual) Monocytes % 2.6 L D Monocytes % (Manual) Eosinophils % 0.5 D Eosinophils % (Manual) Basophils % 0.1 Basophils % (Manual) Myelocytes % (Man) Promyelocytes % (Man) Blast Cells % (Manual) Nucleated RBC % 0 Metamyelocytes Anisocytosis PT with INR INR PTT (Actin FS) Sodium 141 Potassium 4.0 Chloride 107 Carbon Dioxide 27 Anion Gap 7 L BUN 16.2 Creatinine 0.7 Est GFR (CKD-EPI)AfAm 109.91 Est GFR (CKD-EPI)NonAf 94.84 POC Glucometer 150 Random Glucose 128 H Calcium 8.7 Total Bilirubin AST ALT Alkaline Phosphatase Creatine Kinase Troponin I Total Protein Albumin S1 S2 RRR Lungs decreased breath sounds B/L , expiratory ronchi B/L Abd- soft , NT no edema PLAN --Continue with solumedrol -- nebs -- iv antibiotics -- check MRSA screen -- CTA chest negative for PE -- WBC decreased Problem List - Problems (1) COPD exacerbation Code(s): J44.1 - CHRONIC OBSTRUCTIVE PULMONARY DISEASE W (ACUTE) EXACERBATION (2) HLD (hyperlipidemia) Code(s): E78.5 - HYPERLIPIDEMIA, UNSPECIFIED (3) HTN (hypertension) Code(s): I10 - ESSENTIAL (PRIMARY) HYPERTENSION Qualifiers: Hypertension type: essential hypertension Qualified Code(s): I10 - Essential (primary) hypertension
--- NOTE | 2019-06-13 13:35 | EKG ---
Test Reason : Blood Pressure : / mmHG Vent. Rate : 087 BPM Atrial Rate : 087 BPM P-R Int : 134 ms QRS Dur : 084 ms QT Int : 326 ms P-R-T Axes : 054 015 049 degrees QTc Int : 392 ms NORMAL SINUS RHYTHM WITH SINUS ARRHYTHMIA POSSIBLE LEFT ATRIAL ENLARGEMENT LEFT VENTRICULAR HYPERTROPHY ABNORMAL ECG WHEN COMPARED WITH ECG OF 17-MAY-2019 13:25, NO SIGNIFICANT CHANGE WAS FOUND Confirmed by ENEDINA MORENO, JES ([id number]) on 06/13/2019 1:35:26 PM Referred By: Confirmed By:JES MCCONNELL MD
[2019-06-13 16:14] VITALS: BMI 29.0
--- NOTE | 2019-06-13 16:33 | PN ---
Progress Note (short form) - Note Progress Note: ID CONSULT DICTATED ACUTE EXACERBATION COPD LEUKOCYTOSIS- LIKELY STEROID-INDUCED PCN/ SULFA ALLERGIES HX MRSA OBSERVE OFF ANTIBIOTICS OBTAIN CULTURES FOR PERSISTANT LEUKOCYTOSIS OR DEVELOPMENT OF FEVER
--- NOTE | 2019-06-13 19:36 | CON.CARD ---
Consult Consult Specialty:: Cardiology Referred by:: Cristal Ludwig MD Reason for Consultation:: Cardiac evaluation - History of Present Illness Chief Complaint: Shortness of breath History of Present Illness: Patient is a 59 year old female well known to our service (sees Dr. Daquan Hernandes) with underlying history of PAF [id number] score of 3 on DOAC/Eliquis , diastolic LV dysfunction with class 0 NYHA classification heart failure, CAD, HTN, NIDDM, hypercholesterolemia, advanced COPD with recurrent exacerbation, PTE and DVT who presents with worsening shortness of breath. She presented to the office on 05/24/19 for a second opinion. She had reported occasional palpitations. She was placed on Ziopatch which is a 2 week heart monitor. She denies chest pain at this time. She denies paroxysmal nocturnal dyspnea or orthopnea. She denies fever or chills. She denies nausea, vomiting, diarrhea or abdominal pain. She denies headache or lightheadedness. - History Source History Provided By: Patient, Medical Record Limitations to Obtaining History: No Limitations - Past Medical History Cardio/Vascular: Yes: AFIB, CAD, CHF, Deep Vein Thrombosis, HTN, Hyperlipdemia Pulmonary: Yes: COPD, Pulmonary Embolus Gastrointestinal: Yes: GERD, Other (HERNIA REPAIR WITH COMPLICATIONS AND POST OP SBO) ...LMP: 06/30/13 Psych: Yes: Anxiety Musculoskeletal: Yes: Osteoarthritis Rheumatology: Yes: Other (OSTEOARTHRITIS) Endocrine: Yes: Diabetes Mellitus - Past Surgical History Past Surgical History: Yes: Hernia Repair - Alcohol/Substance Use Hx Alcohol Use: No History of Substance Use: reports: None - Smoking History Smoking history: Former smoker Have you smoked in the past 12 months: No Aproximately how many cigarettes per day: 0 If you are a former smoker, when did you quit?: 2013 - Social History ADL: Independent History of Recent Travel: No Home Medications - Allergies Allergies/Adverse Reactions: Allergies Allergy/AdvReac Type Severity Reaction Status Date / Time Penicillins Allergy Hives Verified 06/12/19 15:48 Sulfa (Sulfonamide Allergy Hives Verified 06/12/19 15:48 Antibiotics) [Sulfa(Sulfonamide Antibiotics)] - Home Medications Home Medications: Ambulatory Orders metFORMIN HCL [Glucophage -] 500 mg PO BID@0700,1630 #90 tablet 05/15/18 Apixaban [Eliquis] 5 mg PO BID 05/17/19 Atorvastatin Calcium [Lipitor] 10 mg PO HS 05/17/19 Cholecalciferol (Vitamin D3) [Vitamin D -] 2,000 unit PO DAILY 05/17/19 Cyanocobalamin [Vitamin B12 -] 1,000 mcg PO DAILY 05/17/19 Cyclosporine [Restasis] 1 each OP BID 05/17/19 Diltiazem Cd [Cardizem Cd -] 300 mg PO DAILY 05/17/19 Fluticasone/Vilanterol [Breo Ellipta 200-25 Mcg INH] 1 each IH DAILY 05/17/19 Levalbuterol Tartrate [Xopenex Hfa] 1 puff IH BID PRN 05/17/19 [place]-3S/Dha/Epa/Fish Oil [Fish Oil 1,000 mg Softgel] 1 each PO DAILY 05/17/19 Polyvinyl Alcohol [Artificial Tears] 1 drop OD QID 05/17/19 Prednisolone Acetate/Pf [Prednisolone Acet 1% Eye Drop] 5 ml OP TID PRN Roflumilast [Daliresp -] 500 mcg PO DAILY 05/17/19 Tiotropium [place] [Spiriva] 18 mcg IH DAILY 05/17/19 clonazePAM [Klonopin -] 0.5 mg PO PRN PRN 05/17/19 Amitriptyline HCl [Elavil -] 50 mg PO HS tablet 05/21/19 Cefuroxime Axetil [Ceftin -] 500 mg PO Q12H #8 tablet 05/21/19 predniSONE [Deltasone -] See Taper PO ASDIR #60 tab 05/21/19 Family Medical History Other Family History: Lung cancer Review of Systems - Review of Systems Constitutional: denies: Chills, Fever Cardiovascular: reports: Shortness of Breath. denies: Chest Pain, Palpitations Respiratory: reports: Cough, SOB, SOB on Exertion. denies: Hemoptysis, Orthopnea, PND Gastrointestinal: denies: Abdominal Pain, Constipation, Diarrhea, Melena, Nausea , Rectal Bleeding, Vomiting Genitourinary: denies: Dysuria, Hematuria Musculoskeletal: denies: Back Pain, Joint Pain Neurological: denies: Dizziness, Headache, Seizure, Syncope Vital Signs: Vital Signs Temperature 97.8 F 06/13/19 15:46 Pulse Rate 104 H 06/13/19 15:46 Respiratory Rate 20 06/13/19 15:46 Blood Pressure 125/81 06/13/19 15:46 O2 Sat by Pulse Oximetry (%) 94 L 06/13/19 15:46 Eyes: Yes: PERRL HENT: Yes: Atraumatic Neck: Yes: Supple Respiratory: Yes: Diminished, Wheezes Gastrointestinal: Yes: Normal Bowel Sounds, Soft. No: Tenderness Cardiovascular: Yes: Regular Rate and Rhythm JVD: No PMI: Non-Displaced Heart Sounds: Yes: S1, S2. No: Gallop Murmur: Yes: Systolic Murmur, Grade 1 Edema: No - Other Data Labs, Other Data: CBC, BMP 06/13/19 06:00 06/13/19 06:00 INR, PTT INR 1.38 (0.83-1.09) H 06/12/19 16:50 Laboratory Results - last 24 hr 06/13/19 06/13/19 06/13/19 01:08 06:00 06:00 WBC 15.1 H RBC 3.91 Hgb 8.9 L Hct 29.4 L MCV 75.3 L MCH 22.7 L MCHC 30.1 L RDW 19.7 H Plt Count 447 H MPV 7.2 L Absolute Neuts (auto) 13.7 H Neutrophils % 90.8 H Lymphocytes % 6.0 L Monocytes % 2.6 L D Eosinophils % 0.5 D Basophils % 0.1 Nucleated RBC % 0 Sodium 141 Potassium 4.0 Chloride 107 Carbon Dioxide 27 Anion Gap 7 L BUN 16.2 Creatinine 0.7 Est GFR (CKD-EPI)AfAm 109.91 Est GFR (CKD-EPI)NonAf 94.84 POC Glucometer 229 Random Glucose 128 H Calcium 8.7 Normal sinus rhythm LVH Echo: Pending (From office) Imaging - Results Chest X-ray: Report Reviewed (Unremarkable) Cat Scan: Report Reviewed (Chest CT emphysema) EKG: Report Reviewed Problem List - Problems (1) Diastolic dysfunction with acute on chronic heart failure Code(s): I50.33 - ACUTE ON CHRONIC DIASTOLIC (CONGESTIVE) HEART FAILURE (2) Hypercholesterolemia Code(s): E78.00 - PURE HYPERCHOLESTEROLEMIA, UNSPECIFIED (3) Diabetes mellitus Code(s): E11.9 - TYPE 2 DIABETES MELLITUS WITHOUT COMPLICATIONS (4) COPD exacerbation Code(s): J44.1 - CHRONIC OBSTRUCTIVE PULMONARY DISEASE W (ACUTE) EXACERBATION (5) Shortness of breath Code(s): R06.02 - SHORTNESS OF BREATH (6) Acute exacerbation of chronic obstructive pulmonary disease (COPD) Code(s): J44.1 - CHRONIC OBSTRUCTIVE PULMONARY DISEASE W (ACUTE) EXACERBATION (7) Anemia Code(s): D64.9 - ANEMIA, UNSPECIFIED Qualifiers: Anemia type: unspecified type Qualified Code(s): D64.9 - Anemia, unspecified (8) HTN (hypertension) Code(s): I10 - ESSENTIAL (PRIMARY) HYPERTENSION Qualifiers: Hypertension type: essential hypertension Qualified Code(s): I10 - Essential (primary) hypertension (9) Paroxysmal A-fib Code(s): I48.0 - PAROXYSMAL ATRIAL FIBRILLATION (10) Sleep apnea Code(s): G47.30 - SLEEP APNEA, UNSPECIFIED Assessment/Plan 1. Clinical presentation c/w COPD exacerbation 2. Diastolic LV dysfunction with clinical 0 NYHA classification heart failure 3. PAF currently in sinus rhythm [id number] score of 3 on DOAC/Eliquis 4. HTN 5. Hypercholesterolemia 6. DM 7. History of PTE and DVT PLAN: 1. Echocardiography and nuclear MPI were done in the office. Will follow result 2. Ziopatch to come off tomorrow and will follow up result once available 3. Continue Eliquis 5 mg BID 4. Continue Cardizem CD 300 MG QD. Patient did not tolerate beta renata including Bystolic in the past 5. IV steroids, bronchodilator/nebulizer and O2 6. Continue Atorvastatin Further plans are to follow Maykel Pan MD
--- NOTE | 2019-06-13 19:51 | CONS ---
DATE OF CONSULTATION: DATE OF DICTATION: 06/13/2019 INFECTIOUS DISEASE CONSULTATION HISTORY OF PRESENT ILLNESS: The patient is a 59-year-old female who was evaluated for leukocytosis. The patient has a history of COPD. She was admitted to the hospital on June 12, 2019, with worsening shortness of breath. Patient reports a 2-day history of worsening shortness of breath which did not improve after a course of prednisone and her inhalers shows an occasional dry cough. She was admitted to the hospital, where chest x-ray and CAT scan were negative for acute infiltrate. Patient was noted to have an elevated white blood cell count of 18,000. She denies any fever or chills, no complaints of cough at the present time, no purulent sputum production. Patient has a history of COPD. She reports that over the past year she has had frequent exacerbations which she attributes to [place] new residence on . She denies any ill contacts, no recent travel. She received influenza vaccine prior to admission. She received pneumococcal vaccine approximately 2 years ago. PAST MEDICAL HISTORY: Positive for COPD, pulmonary embolism, hypertension, hyperlipidemia, atrial fibrillation, right upper extremity DVT, gastroesophageal reflux, history of MRSA soft tissue infections and remote history of MRSA bacteremia. PAST SURGICAL HISTORY: Status post bowel obstruction. ALLERGIES: PENICILLIN and SULFA. MEDICATION: Include Tylenol, albuterol, Elavil, Eliquis, Lipitor, Zithromax, diltiazem, methylprednisolone. SOCIAL HISTORY: As per HPI. She is a former smoker, stopped in 2012. SYSTEMS REVIEW: Neurologic: No loss of consciousness, seizure activity, focal weakness. Cardiac: Negative for chest pain or palpitations. Respiratory: As per HPI. Gastrointestinal: Negative vomiting or diarrhea. Genitourinary: Negative for urinary tract infection. LABORATORY DATA: White count on admission 18,000, presently 15.1, hematocrit 29.4, platelets 447, creatinine 0.7. PHYSICAL EXAMINATION: General: On exam, she is awake and alert, she is not acutely toxic appearing. Vital signs: Temperature 97.8, blood pressure 125/81, pulse 104 regular, respirations 20 per minute. HEENT: Sclerae anicteric. Cardiovascular: Heart sounds S1, S2. Lungs: Distant, clear bilaterally. Abdomen: Soft, nontender. Extremities: Negative for edema. IMPRESSION: 1. Acute exacerbation chronic obstructive pulmonary disease. 2. Leukocytosis, likely steroid induced. 3. PENICILLIN and SULFA allergies. 4. History of methicillin-resistant Staphylococcus aureus. Would observe off antibiotic therapy. Suspect leukocytosis is steroid induced. No evidence of pneumonia on CAT scan. Obtain cultures for persistent leukocytosis or developmental fever. Thank you for the kind referral. NAVARRO VILLARREAL M.D. [id number]
[2019-06-13] MEDS: ATORVASTATIN CA 10 MG TABLET (FP) PO SCH (22:35)
[2019-06-14] MEDS: methylPREDNISolone NA SUCC 40 MG/1 ML VIAL IVPUSH SCH ×3 (01:32→17:11)
[2019-06-14] MEDS: INSULIN (NOVOLOG) ASPART 100 UNITS/ML 10ML VIAL SQ SCH ×3 (06:01→17:11)
[2019-06-14] MEDS: IPRATROPIUM BR 0.02% 0.5 MG/2.5 ML VIAL.NEB. NEB SCH ×5 (08:40→20:10)
[2019-06-14] MEDS: ALBUTEROL SO4 0.083% IH SOL 2.5 MG/3 ML VIAL.NEB. NEB SCH ×5 (08:40→20:10)
[2019-06-14] MEDS: APIXABAN 5 MG TABLET PO SCH ×2 (10:15→22:15)
[2019-06-14] MEDS: ROFLUMILAST 500 MCG TABLET PO SCH (10:15)
[2019-06-14] MEDS: clonazePAM 0.5 MG TABLET PO SCH ×2 (10:15→22:15)
--- NOTE | 2019-06-14 11:46 | PN ---
Progress Note (short form) - Note Progress Note: pt seen/ examined chart reviewed awake/ comfortable wants pepcid bid and regular food Vital Signs Temp 98.2 F 06/13/19 22:00 Pulse 104 H 06/13/19 22:00 Resp 20 06/13/19 22:00 BP 128/62 06/13/19 22:00 Pulse Ox 94 L 06/13/19 21:00 Intake & Output 06/13/19 06/13/19 06/14/19 11:59 23:59 11:59 Intake Total 500 201 Output Total 600 Balance -100 201 Weight 164 lb Intake: IVPB 1 Oral 500 200 Output: Urine 600 Void 600 Other: Voiding Method Toilet Toilet Bowel Movement No No Height 5 ft 3 in Body Mass Index (BMI) 29.0 Weight Measurement Method Built in [facility] Active Medications Acetaminophen (Tylenol -) 650 mg PO Q6H PRN PRN Reason: PAIN LEVEL 1-5 Albuterol Sulfate (Ventolin 0.083% Nebulizer Soln -) 1 amp NEB RQID [facility] Last Admin: 06/14/19 08:45 Dose: Not Given Amitriptyline HCl (Elavil -) 50 mg PO HS [facility] Last Admin: 06/14/19 00:00 Dose: 50 mg Apixaban (Eliquis -) 5 mg PO BID [facility] Last Admin: 06/14/19 10:15 Dose: 5 mg Atorvastatin Calcium (Lipitor -) 10 mg PO HS [facility] Last Admin: 06/13/19 22:35 Dose: 10 mg Clonazepam (Klonopin -) 0.5 mg PO BID [facility] Last Admin: 06/14/19 10:15 Dose: 0.5 mg Diltiazem HCl (Cardizem Cd -) 300 mg PO DAILY [facility] Last Admin: 06/14/19 10:15 Dose: 300 mg Insulin Aspart (Novolog Vial) 1 units SQ TIDAC [facility]; Protocol Last Admin: 06/14/19 06:01 Dose: Not Given Ipratropium [place] (Atrovent 0.02% Nebulizer -) 1 amp NEB RQID [facility] Last Admin: 06/14/19 08:45 Dose: Not Given Methylprednisolone Sodium Succinate (Solu-Medrol -) 40 mg IVPUSH Q8H-IV [facility] Last Admin: 06/14/19 10:16 Dose: 40 mg Roflumilast (Daliresp -) 500 mcg PO DAILY [facility] Last Admin: 06/14/19 10:15 Dose: 500 mcg CBC, BMP 06/13/19 06:00 06/13/19 06:00 Physical Exam Awake/ comfortable S1 S2 RRR Lungs decreased breath sounds B/L ,scattered rhonchi Abd- soft , NT no edema PLAN Multiple admissions --Solumedrol- Taper - Pulmonary Eval -- nebs -- iv antibiotics -- check MRSA screen -- CTA chest negative for PE --will follow - Problem List - Problems (1) COPD exacerbation Code(s): J44.1 - CHRONIC OBSTRUCTIVE PULMONARY DISEASE W (ACUTE) EXACERBATION (2) HLD (hyperlipidemia) Code(s): E78.5 - HYPERLIPIDEMIA, UNSPECIFIED (3) HTN (hypertension) Code(s): I10 - ESSENTIAL (PRIMARY) HYPERTENSION Qualifiers: Hypertension type: essential hypertension Qualified Code(s): I10 - Essential (primary) hypertension
--- NOTE | 2019-06-14 12:12 | CON.PULM ---
Consult - History of Present Illness History of Present Illness: Kathi Mclain is a 59F with PMH COPD s/p extensive smoking history quit 2012, PE on Eliquis, newly diagnosed AFIB presenting with worsening SOB on prednisone taper.Patient recently discharged [facility] for COPD exacerbation. F/u with PMD Dr. Cristal Ludwig who started her on prednisone taper, started at 60mg QD and decreased down to 40mg. Yesterday and today has been having worsening dyspnea and less able to move air, upped her prednisone dose back to 60mg but this did not help. Took 2x Xopenex nebs today with no improvement. No history of ICU admission/intubation/BiPap use, not on home oxygen. Denies recent illness, fever /chills, N/V/C/D, fever, sick contacts, got flu shot with Dr. Ludwig 2 weeks ago. denies chest pain, abd pain, urinary sx. Able to ambulate without significant SOB, no difficulty speaking. Diagnosed with PE via CTA at OSH before she moved back to [place] 2 months ago, had RUE blood clot prior and had PE despite Eliquis. Changed to coumadin but patient did not like it, switched back to 5mg bid Eliquis about 2months ago. New onset AFIB, sees Dr. Mulligan, has Ziopatch placed, denies palpitations at this time. - History Source History Provided By: Patient, Medical Record Limitations to Obtaining History: No Limitations - Past Medical History Cardio/Vascular: Yes: AFIB, CAD, CHF, Deep Vein Thrombosis, HTN, Hyperlipdemia Pulmonary: Yes: COPD, Pulmonary Embolus Gastrointestinal: Yes: GERD, Other (HERNIA REPAIR WITH COMPLICATIONS AND POST OP SBO) ...LMP: 06/30/13 Psych: Yes: Anxiety Musculoskeletal: Yes: Osteoarthritis Rheumatology: Yes: Other (OSTEOARTHRITIS) Endocrine: Yes: Diabetes Mellitus - Past Surgical History Past Surgical History: Yes: Hernia Repair - Alcohol/Substance Use Hx Alcohol Use: No History of Substance Use: reports: None - Smoking History Smoking history: Former smoker Have you smoked in the past 12 months: No Aproximately how many cigarettes per day: 0 If you are a former smoker, when did you quit?: 2013 - Social History ADL: Independent History of Recent Travel: No Home Medications - Allergies Allergies/Adverse Reactions: Allergies Allergy/AdvReac Type Severity Reaction Status Date / Time Penicillins Allergy Hives Verified 06/12/19 15:48 Sulfa (Sulfonamide Allergy Hives Verified 06/12/19 15:48 Antibiotics) [Sulfa(Sulfonamide Antibiotics)] - Home Medications Home Medications: Ambulatory Orders metFORMIN HCL [Glucophage -] 500 mg PO BID@0700,1630 #90 tablet 05/15/18 Apixaban [Eliquis] 5 mg PO BID 05/17/19 Atorvastatin Calcium [Lipitor] 10 mg PO HS 05/17/19 Cholecalciferol (Vitamin D3) [Vitamin D -] 2,000 unit PO DAILY 05/17/19 Cyanocobalamin [Vitamin B12 -] 1,000 mcg PO DAILY 05/17/19 Cyclosporine [Restasis] 1 each OP BID 05/17/19 Diltiazem Cd [Cardizem Cd -] 300 mg PO DAILY 05/17/19 Fluticasone/Vilanterol [Breo Ellipta 200-25 Mcg INH] 1 each IH DAILY 05/17/19 Levalbuterol Tartrate [Xopenex Hfa] 1 puff IH BID PRN 05/17/19 [place]-3S/Dha/Epa/Fish Oil [Fish Oil 1,000 mg Softgel] 1 each PO DAILY 05/17/19 Polyvinyl Alcohol [Artificial Tears] 1 drop OD QID 05/17/19 Prednisolone Acetate/Pf [Prednisolone Acet 1% Eye Drop] 5 ml OP TID PRN Roflumilast [Daliresp -] 500 mcg PO DAILY 05/17/19 Tiotropium [place] [Spiriva] 18 mcg IH DAILY 05/17/19 clonazePAM [Klonopin -] 0.5 mg PO PRN PRN 05/17/19 Amitriptyline HCl [Elavil -] 50 mg PO HS tablet 05/21/19 Cefuroxime Axetil [Ceftin -] 500 mg PO Q12H #8 tablet 05/21/19 predniSONE [Deltasone -] See Taper PO ASDIR #60 tab 05/21/19 Review of Systems - Review of Systems Constitutional: reports: Lethargy. denies: Fever Eyes: denies: Blurred Vision HENT: denies: Difficult Swallowing Neck: denies: Decreased ROM Cardiovascular: denies: Chest Pain Respiratory: reports: Cough, Exercise Intolerance, SOB on Exertion. denies: Hemoptysis, Wheezing Gastrointestinal: denies: Abdominal Pain Genitourinary: denies: Burning Breasts: reports: No Symptoms Reported Physical Exam Vital Sings: Vital Signs Temperature 98.2 F 06/13/19 22:00 Pulse Rate 104 H 06/13/19 22:00 Respiratory Rate 20 06/13/19 22:00 Blood Pressure 128/62 06/13/19 22:00 O2 Sat by Pulse Oximetry (%) 94 L 06/13/19 21:00 Constitutional: Yes: Calm Eyes: Yes: EOM Intact, Ptosis HENT: Yes: Normocephalic Neck: Yes: Trachea Midline Cardiovascular: Yes: Regular Rate and Rhythm, S1, S2 Respiratory: Yes: Poor Air Entry Gastrointestinal: Yes: Normal Bowel Sounds Renal/: No: Bladder Distention Extremities: Yes: WNL Edema: No Integumentary: Yes: WNL Neurological: Yes: Alert Psychiatric: Yes: Alert Labs: CBC, BMP 06/13/19 06:00 06/13/19 06:00 rest reviewed Imaging - Results Chest X-ray: Report Reviewed, Image Reviewed Cat Scan: Report Reviewed, Image Reviewed Problem List - Problems (1) Emphysema of lung Code(s): J43.9 - EMPHYSEMA, UNSPECIFIED (2) COPD exacerbation Code(s): J44.1 - CHRONIC OBSTRUCTIVE PULMONARY DISEASE W (ACUTE) EXACERBATION (3) Fatigue Code(s): R53.83 - OTHER FATIGUE Qualifiers: Fatigue type: unspecified Qualified Code(s): R53.83 - Other fatigue (4) Paroxysmal A-fib Code(s): I48.0 - PAROXYSMAL ATRIAL FIBRILLATION Assessment/Plan MULTIPLE ADMISSIONS OVER PAST 12 MONTHS FOR A/E COPD CENTRILOBULAR EMPHYSEMA MODERATELY ADVANCED PAF/LVDD/CAD/HTN/HLD/VTE RECENT WOULD TAPER STEROIDS CONTINUE DUONEB/O2/DALIRESP/ABS CONSIDER OUTPATIENT ADDITION OF ZITHROMAX QOD NEEDS PFT'S AND CLOSE OUTPATIENT FOLLOW UP NEED TO DEFINE ETIOLOGY OF PTOSIS WILL FOLLOW Ubaldo MALONEY MD
--- NOTE | 2019-06-14 12:36 | PN ---
Progress Note, Physician Chief Complaint: Less SOB History of Present Illness: Patient was seen and examined. Awake and alert. Chart was reviewed Denies chest pain or palpitations - Current Medication List Current Medications: Active Medications Acetaminophen (Tylenol -) 650 mg PO Q6H PRN PRN Reason: PAIN LEVEL 1-5 Albuterol Sulfate (Ventolin 0.083% Nebulizer Soln -) 1 amp NEB RQID [facility] Last Admin: 06/14/19 08:45 Dose: Not Given Amitriptyline HCl (Elavil -) 50 mg PO HS [facility] Last Admin: 06/14/19 00:00 Dose: 50 mg Apixaban (Eliquis -) 5 mg PO BID [facility] Last Admin: 06/14/19 10:15 Dose: 5 mg Atorvastatin Calcium (Lipitor -) 10 mg PO HS [facility] Last Admin: 06/13/19 22:35 Dose: 10 mg Clonazepam (Klonopin -) 0.5 mg PO BID [facility] Last Admin: 06/14/19 10:15 Dose: 0.5 mg Diltiazem HCl (Cardizem Cd -) 300 mg PO DAILY [facility] Last Admin: 06/14/19 10:15 Dose: 300 mg Famotidine (Pepcid -) 20 mg PO BID [facility] Insulin Aspart (Novolog Vial) 1 units SQ TIDAC [facility]; Protocol Last Admin: 06/14/19 11:58 Dose: 2 unit Ipratropium [place] (Atrovent 0.02% Nebulizer -) 1 amp NEB RQID [facility] Last Admin: 06/14/19 08:45 Dose: Not Given Methylprednisolone Sodium Succinate (Solu-Medrol -) 40 mg IVPUSH Q8H-IV [facility] Last Admin: 06/14/19 10:16 Dose: 40 mg Roflumilast (Daliresp -) 500 mcg PO DAILY [facility] Last Admin: 06/14/19 10:15 Dose: 500 mcg - Objective Vital Signs: Vital Signs Temperature 98.2 F 06/13/19 22:00 Pulse Rate 104 H 06/13/19 22:00 Respiratory Rate 20 06/13/19 22:00 Blood Pressure 128/62 06/13/19 22:00 O2 Sat by Pulse Oximetry (%) 94 L 06/13/19 21:00 Neck: Yes: Supple Cardiovascular: Yes: Regular Rate and Rhythm, S1, S2 Respiratory: Yes: Cough, Diminished, SOB Gastrointestinal: Yes: Normal Bowel Sounds, Soft. No: Tenderness Edema: No Labs: CBC, BMP 06/13/19 06:00 06/13/19 06:00 INR, PTT INR 1.38 (0.83-1.09) H 06/12/19 16:50 Problem List - Problems (1) Diastolic dysfunction with acute on chronic heart failure Code(s): I50.33 - ACUTE ON CHRONIC DIASTOLIC (CONGESTIVE) HEART FAILURE (2) Hypercholesterolemia Code(s): E78.00 - PURE HYPERCHOLESTEROLEMIA, UNSPECIFIED (3) Diabetes mellitus Code(s): E11.9 - TYPE 2 DIABETES MELLITUS WITHOUT COMPLICATIONS (4) COPD exacerbation Code(s): J44.1 - CHRONIC OBSTRUCTIVE PULMONARY DISEASE W (ACUTE) EXACERBATION (5) Shortness of breath Code(s): R06.02 - SHORTNESS OF BREATH (6) Acute exacerbation of chronic obstructive pulmonary disease (COPD) Code(s): J44.1 - CHRONIC OBSTRUCTIVE PULMONARY DISEASE W (ACUTE) EXACERBATION (7) Anemia Code(s): D64.9 - ANEMIA, UNSPECIFIED Qualifiers: Anemia type: unspecified type Qualified Code(s): D64.9 - Anemia, unspecified (8) HTN (hypertension) Code(s): I10 - ESSENTIAL (PRIMARY) HYPERTENSION Qualifiers: Hypertension type: essential hypertension Qualified Code(s): I10 - Essential (primary) hypertension (9) Paroxysmal A-fib Code(s): I48.0 - PAROXYSMAL ATRIAL FIBRILLATION (10) Sleep apnea Code(s): G47.30 - SLEEP APNEA, UNSPECIFIED Assessment/Plan 1. Clinical presentation c/w COPD exacerbation 2. Diastolic LV dysfunction with clinical 0 NYHA classification heart failure 3. PAF currently in sinus rhythm [id number] score of 3 on DOAC/Eliquis 4. HTN 5. Hypercholesterolemia 6. DM 7. History of PTE and DVT PLAN: 1. Echocardiography and nuclear MPI were done in the office. Will follow result 2. Ziopatch to come off today and will follow up result once available 3. Continue Eliquis 5 mg BID 4. Continue Cardizem CD 300 MG QD. Patient did not tolerate beta renata including Bystolic in the past 5. IV steroids, bronchodilator/nebulizer and O2 as per Pulmonary recommendation 6. Continue Atorvastatin Further plans are to follow Maykel Pan MD
[2019-06-14] MEDS: FAMOTIDINE 20 MG TABLET PO SCH ×2 (13:23→22:15)
[2019-06-14] MEDS: ATORVASTATIN CA 10 MG TABLET (FP) PO SCH (22:15)
[2019-06-14] MEDS: AMITRIPTYLINE HCL 25 MG TABLET (FP) PO SCH ×2 (22:15)
[2019-06-15] MEDS: methylPREDNISolone NA SUCC 40 MG/1 ML VIAL IVPUSH SCH ×3 (03:27→17:16)
[2019-06-15] MEDS: INSULIN (NOVOLOG) ASPART 100 UNITS/ML 10ML VIAL SQ SCH ×3 (06:37→17:14)
[2019-06-15] MEDS: IPRATROPIUM BR 0.02% 0.5 MG/2.5 ML VIAL.NEB. NEB SCH ×4 (07:25→21:15)
[2019-06-15] MEDS: ALBUTEROL SO4 0.083% IH SOL 2.5 MG/3 ML VIAL.NEB. NEB SCH ×4 (07:26→21:15)
[2019-06-15] MEDS: FAMOTIDINE 20 MG TABLET PO SCH ×2 (09:51→21:50)
[2019-06-15] MEDS: APIXABAN 5 MG TABLET PO SCH ×2 (09:52→21:50)
[2019-06-15] MEDS: clonazePAM 0.5 MG TABLET PO SCH ×2 (09:52→21:50)
[2019-06-15] MEDS: ROFLUMILAST 500 MCG TABLET PO SCH (09:53)
--- NOTE | 2019-06-15 10:59 | PN ---
Progress Note (short form) - Note Progress Note: Events noted was seen by me recently for worsening SOB,no fever Was started on prednisone 60mg -- slow taper Received iv antibiotics and solumedrol feels better slightly she has an event monitor placed by Cardiology outpt Vital Signs - 24 hr 06/14/19 06/15/19 06/15/19 21:00 05:02 09:00 Temperature 98.3 F Pulse Rate 82 Respiratory 20 17 Rate Blood Pressure 136/72 O2 Sat by Pulse 95 95 Oximetry (%) 06/15/19 10:00 Temperature 97.8 F Pulse Rate 110 H Respiratory 17 Rate Blood Pressure 118/49 L O2 Sat by Pulse Oximetry (%) Current Medications Generic Name Dose Route Start Last Admin Trade Name Freq PRN Reason Stop Dose Admin Acetaminophen 650 mg 06/13/19 00:28 Tylenol - PO Q6H PRN PAIN LEVEL 1-5 Al Hydroxide/Mg Hydroxide 30 ml 06/15/19 12:50 Mylanta Oral Suspension - PO Q6H PRN DYSPEPSIA Albuterol Sulfate 1 amp 06/13/19 08:00 06/15/19 15:05 Ventolin 0.083% Nebulizer Soln - NEB 1 amp RQID [facility] Administration Amitriptyline HCl 50 mg 06/13/19 22:00 06/14/19 22:15 Elavil - PO 50 mg HS [facility] Administration Apixaban 5 mg 06/13/19 10:00 06/15/19 09:52 Eliquis - PO 5 mg BID [facility] Administration Atorvastatin Calcium 10 mg 06/13/19 22:00 06/14/19 22:15 Lipitor - PO 10 mg HS [facility] Administration Clonazepam 0.5 mg 06/13/19 10:00 06/15/19 09:52 Klonopin - PO 0.5 mg BID [facility] Administration Diltiazem HCl 300 mg 06/13/19 10:00 06/15/19 09:54 Cardizem Cd - PO 300 mg DAILY [facility] Administration Famotidine 20 mg 06/14/19 12:45 06/15/19 09:51 Pepcid - PO 20 mg BID [facility] Administration Insulin Aspart 1 units 06/13/19 07:00 06/15/19 17:14 Novolog Vial SQ 2 unit TIDAC [facility] Administration Protocol Ipratropium [place] 1 amp 06/13/19 08:00 06/15/19 15:05 Atrovent 0.02% Nebulizer - NEB 1 amp RQID [facility] Administration Methylprednisolone Sodium Succinate 40 mg 06/13/19 02:00 06/15/19 17:16 Solu-Medrol - IVPUSH 40 mg Q8H-IV [facility] Administration Roflumilast 500 mcg 06/13/19 10:00 06/15/19 09:53 Daliresp - PO 500 mcg DAILY [facility] Administration Laboratory Results - last 24 hr 06/15/19 06/15/19 06/15/19 06:37 11:22 17:09 POC Glucometer 122 280 199 S1 S2 RRR Lungs decreased breath sounds B/L , expiratory ronchi B/L Abd- soft , NT no edema PLAN --Continue with solumedrol -- nebs -- iv antibiotics -- check MRSA screen -- CTA chest negative for PE -- WBC decreased Problem List - Problems (1) COPD exacerbation Code(s): J44.1 - CHRONIC OBSTRUCTIVE PULMONARY DISEASE W (ACUTE) EXACERBATION (2) HLD (hyperlipidemia) Code(s): E78.5 - HYPERLIPIDEMIA, UNSPECIFIED (3) HTN (hypertension) Code(s): I10 - ESSENTIAL (PRIMARY) HYPERTENSION Qualifiers: Hypertension type: essential hypertension Qualified Code(s): I10 - Essential (primary) hypertension
--- NOTE | 2019-06-15 11:11 | PN ---
Progress Note (short form) - Note Progress Note: PULMONARY States breathing slightly better. Minimal cough and wheezing. Vital Signs Period Temp Pulse Resp BP Sys/[place] Pulse Ox Last 24 Hr 98.3 F-98.6 F 82-94 20-20 122-136/64-72 95 Gen: tachypneic with minimal exertion Heart: RRR Lung: distant breath sounds Abd: soft, nontender Ext: no edema CBC, BMP 06/13/19 06:00 06/13/19 06:00 Active Medications Acetaminophen (Tylenol -) 650 mg PO Q6H PRN PRN Reason: PAIN LEVEL 1-5 Albuterol Sulfate (Ventolin 0.083% Nebulizer Soln -) 1 amp NEB RQID [facility] Last Admin: 06/15/19 07:26 Dose: 1 amp Amitriptyline HCl (Elavil -) 50 mg PO HS [facility] Last Admin: 06/14/19 22:15 Dose: 50 mg Apixaban (Eliquis -) 5 mg PO BID [facility] Last Admin: 06/15/19 09:52 Dose: 5 mg Atorvastatin Calcium (Lipitor -) 10 mg PO HS [facility] Last Admin: 06/14/19 22:15 Dose: 10 mg Clonazepam (Klonopin -) 0.5 mg PO BID [facility] Last Admin: 06/15/19 09:52 Dose: 0.5 mg Diltiazem HCl (Cardizem Cd -) 300 mg PO DAILY [facility] Last Admin: 06/15/19 09:54 Dose: 300 mg Famotidine (Pepcid -) 20 mg PO BID [facility] Last Admin: 06/15/19 09:51 Dose: 20 mg Insulin Aspart (Novolog Vial) 1 units SQ TIDAC [facility]; Protocol Last Admin: 06/15/19 06:37 Dose: Not Given Ipratropium [place] (Atrovent 0.02% Nebulizer -) 1 amp NEB RQID [facility] Last Admin: 06/15/19 07:25 Dose: 1 amp Methylprednisolone Sodium Succinate (Solu-Medrol -) 40 mg IVPUSH Q8H-IV [facility] Last Admin: 06/15/19 09:54 Dose: 40 mg Roflumilast (Daliresp -) 500 mcg PO DAILY [facility] Last Admin: 06/15/19 09:53 Dose: 500 mcg A/P Acute COPD Exacerbation LV Diastolic Dysfunction Paroxysmal Atrial Fibrillation HTN DM Hypercholesterolemia h/o DVT/PE - continue medrol at current dose - inhaled bronchodilators standing and PRN - O2 to keep SpO2 >90% - rate control - continue anticoagulation
[2019-06-15] MEDS ORDERED: MAG HYDROX/AL HYDROX/SIMETH 30 ML UNIT-DOSE CUP PO PRN (12:50)
--- NOTE | 2019-06-15 15:49 | PN ---
Progress Note, Physician - Current Medication List Current Medications: Active Medications Acetaminophen (Tylenol -) 650 mg PO Q6H PRN PRN Reason: PAIN LEVEL 1-5 Al Hydroxide/Mg Hydroxide (Mylanta Oral Suspension -) 30 ml PO Q6H PRN PRN Reason: DYSPEPSIA Albuterol Sulfate (Ventolin 0.083% Nebulizer Soln -) 1 amp NEB RQID [facility] Last Admin: 06/15/19 15:05 Dose: 1 amp Amitriptyline HCl (Elavil -) 50 mg PO HS [facility] Last Admin: 06/14/19 22:15 Dose: 50 mg Apixaban (Eliquis -) 5 mg PO BID [facility] Last Admin: 06/15/19 09:52 Dose: 5 mg Atorvastatin Calcium (Lipitor -) 10 mg PO HS [facility] Last Admin: 06/14/19 22:15 Dose: 10 mg Clonazepam (Klonopin -) 0.5 mg PO BID [facility] Last Admin: 06/15/19 09:52 Dose: 0.5 mg Diltiazem HCl (Cardizem Cd -) 300 mg PO DAILY [facility] Last Admin: 06/15/19 09:54 Dose: 300 mg Famotidine (Pepcid -) 20 mg PO BID [facility] Last Admin: 06/15/19 09:51 Dose: 20 mg Insulin Aspart (Novolog Vial) 1 units SQ TIDAC [facility]; Protocol Last Admin: 06/15/19 15:05 Dose: 6 unit Ipratropium [place] (Atrovent 0.02% Nebulizer -) 1 amp NEB RQID [facility] Last Admin: 06/15/19 15:05 Dose: 1 amp Methylprednisolone Sodium Succinate (Solu-Medrol -) 40 mg IVPUSH Q8H-IV [facility] Last Admin: 06/15/19 09:54 Dose: 40 mg Roflumilast (Daliresp -) 500 mcg PO DAILY [facility] Last Admin: 06/15/19 09:53 Dose: 500 mcg - Objective Vital Signs: Vital Signs Temperature 98.3 F 06/15/19 05:02 Pulse Rate 82 06/15/19 05:02 Respiratory Rate 20 06/15/19 05:02 Blood Pressure 136/72 06/15/19 05:02 O2 Sat by Pulse Oximetry (%) 95 06/14/19 21:00 Eyes: Yes: WNL, Conjunctiva Clear, EOM Intact HENT: Yes: WNL, Atraumatic, Normocephalic Neck: Yes: WNL, Supple, Trachea Midline Cardiovascular: Yes: WNL, Regular Rate and Rhythm Respiratory: Yes: Diminished, Hyperresonant, Wheezes Gastrointestinal: Yes: WNL, Normal Bowel Sounds Genitourinary: Yes: WNL Musculoskeletal: Yes: WNL Extremities: Yes: WNL Edema: No Integumentary: Yes: WNL Neurological: Yes: WNL, Alert, Oriented ...Motor Strength: WNL Psychiatric: Yes: WNL Labs: CBC, BMP 06/13/19 06:00 06/13/19 06:00 INR, PTT INR 1.38 (0.83-1.09) H 06/12/19 16:50 Assessment/Plan 1. Clinical presentation c/w COPD exacerbation 2. Diastolic LV dysfunction with clinical 0 NYHA classification heart failure 3. PAF currently in sinus rhythm [id number] score of 3 on DOAC/Eliquis 4. HTN 5. Hypercholesterolemia 6. DM 7. History of PTE and DVT PLAN: 1. Echocardiography and nuclear MPI were done in the office. Will follow result 2. Ziopatch to come off today and will follow up result once available 3. Continue Eliquis 5 mg BID 4. Continue Cardizem CD 300 MG QD. Patient did not tolerate beta renata including Bystolic in the past 5. IV steroids, bronchodilator/nebulizer and O2 as per Pulmonary recommendation 6. Continue Atorvastatin coverage for dr. Pan
[2019-06-15] MEDS: AMITRIPTYLINE HCL 25 MG TABLET (FP) PO SCH (21:50)
[2019-06-15] MEDS: ATORVASTATIN CA 10 MG TABLET (FP) PO SCH (21:50)
[2019-06-16] MEDS: methylPREDNISolone NA SUCC 40 MG/1 ML VIAL IVPUSH SCH ×3 (03:02→17:59)
[2019-06-16] MEDS: INSULIN (NOVOLOG) ASPART 100 UNITS/ML 10ML VIAL SQ SCH ×3 (06:29→16:58)
[2019-06-16] MEDS: IPRATROPIUM BR 0.02% 0.5 MG/2.5 ML VIAL.NEB. NEB SCH ×4 (07:15→19:50)
[2019-06-16] MEDS: ALBUTEROL SO4 0.083% IH SOL 2.5 MG/3 ML VIAL.NEB. NEB SCH ×4 (07:15→19:50)
[2019-06-16] MEDS ORDERED: PT OWN MED DRAWER 7, Y5N ONE (09:21)
[2019-06-16] MEDS: FAMOTIDINE 20 MG TABLET PO SCH ×2 (09:24→22:07)
[2019-06-16] MEDS: APIXABAN 5 MG TABLET PO SCH ×2 (09:24→22:07)
[2019-06-16] MEDS: ROFLUMILAST 500 MCG TABLET PO SCH (09:25)
[2019-06-16] MEDS: clonazePAM 0.5 MG TABLET PO SCH ×2 (09:25→22:07)
--- NOTE | 2019-06-16 10:36 | PN ---
Progress Note (short form) - Note Progress Note: Events noted feels better she has an event monitor placed by Cardiology outpt Vital Signs - 24 hr 06/15/19 06/15/19 06/16/19 20:51 21:42 04:37 Temperature 98.5 F 98.5 F Pulse Rate 86 81 Respiratory 20 20 Rate Blood Pressure 120/80 150/86 O2 Sat by Pulse Oximetry (%) 06/16/19 06/16/19 09:00 09:46 Temperature 97.5 F L Pulse Rate 108 H Respiratory 20 Rate Blood Pressure 142/77 O2 Sat by Pulse 96 Oximetry (%) Current Medications Generic Name Dose Route Start Last Admin Trade Name Freq PRN Reason Stop Dose Admin Acetaminophen 650 mg 06/13/19 00:28 Tylenol - PO Q6H PRN PAIN LEVEL 1-5 Al Hydroxide/Mg Hydroxide 30 ml 06/15/19 12:50 06/16/19 12:24 Mylanta Oral Suspension - PO 30 ml Q6H PRN Administration DYSPEPSIA Albuterol Sulfate 1 amp 06/13/19 08:00 06/16/19 15:45 Ventolin 0.083% Nebulizer Soln - NEB Not Given RQID [facility] Amitriptyline HCl 50 mg 06/13/19 22:00 06/15/19 21:50 Elavil - PO 50 mg HS [facility] Administration Apixaban 5 mg 06/13/19 10:00 06/16/19 09:24 Eliquis - PO 5 mg BID [facility] Administration Atorvastatin Calcium 10 mg 06/13/19 22:00 06/15/19 21:50 Lipitor - PO 10 mg HS [facility] Administration Clonazepam 0.5 mg 06/13/19 10:00 06/16/19 09:25 Klonopin - PO 0.5 mg BID [facility] Administration Diltiazem HCl 300 mg 06/13/19 10:00 06/16/19 09:25 Cardizem Cd - PO 300 mg DAILY [facility] Administration Famotidine 20 mg 06/14/19 12:45 06/16/19 09:24 Pepcid - PO 20 mg BID [facility] Administration Insulin Aspart 1 units 06/13/19 07:00 06/16/19 11:56 Novolog Vial SQ 2 unit TIDAC [facility] Administration Protocol Ipratropium [place] 1 amp 06/13/19 08:00 06/16/19 15:45 Atrovent 0.02% Nebulizer - NEB Not Given RQID [facility] Methylprednisolone Sodium Succinate 40 mg 06/13/19 02:00 06/16/19 09:24 Solu-Medrol - IVPUSH 40 mg Q8H-IV [facility] Administration Roflumilast 500 mcg 06/13/19 10:00 06/16/19 09:25 Daliresp - PO 500 mcg DAILY [facility] Administration Laboratory Results - last 24 hr 06/15/19 06/16/19 06/16/19 17:09 06:29 11:29 POC Glucometer 199 126 180 S1 S2 RRR Lungs decreased breath sounds B/L , expiratory ronchi B/L Abd- soft , NT no edema PLAN --Continue with solumedrol -- nebs -- iv antibiotics -- check MRSA screen -- CTA chest negative for PE -- WBC decreased Problem List - Problems (1) COPD exacerbation Code(s): J44.1 - CHRONIC OBSTRUCTIVE PULMONARY DISEASE W (ACUTE) EXACERBATION (2) HLD (hyperlipidemia) Code(s): E78.5 - HYPERLIPIDEMIA, UNSPECIFIED (3) HTN (hypertension) Code(s): I10 - ESSENTIAL (PRIMARY) HYPERTENSION Qualifiers: Hypertension type: essential hypertension Qualified Code(s): I10 - Essential (primary) hypertension
--- NOTE | 2019-06-16 10:51 | PN ---
Progress Note, Physician - Current Medication List Current Medications: Active Medications Acetaminophen (Tylenol -) 650 mg PO Q6H PRN PRN Reason: PAIN LEVEL 1-5 Al Hydroxide/Mg Hydroxide (Mylanta Oral Suspension -) 30 ml PO Q6H PRN PRN Reason: DYSPEPSIA Albuterol Sulfate (Ventolin 0.083% Nebulizer Soln -) 1 amp NEB RQID [facility] Last Admin: 06/16/19 07:15 Dose: 1 amp Amitriptyline HCl (Elavil -) 50 mg PO HS [facility] Last Admin: 06/15/19 21:50 Dose: 50 mg Apixaban (Eliquis -) 5 mg PO BID [facility] Last Admin: 06/16/19 09:24 Dose: 5 mg Atorvastatin Calcium (Lipitor -) 10 mg PO HS [facility] Last Admin: 06/15/19 21:50 Dose: 10 mg Clonazepam (Klonopin -) 0.5 mg PO BID [facility] Last Admin: 06/16/19 09:25 Dose: 0.5 mg Diltiazem HCl (Cardizem Cd -) 300 mg PO DAILY [facility] Last Admin: 06/16/19 09:25 Dose: 300 mg Famotidine (Pepcid -) 20 mg PO BID [facility] Last Admin: 06/16/19 09:24 Dose: 20 mg Insulin Aspart (Novolog Vial) 1 units SQ TIDAC [facility]; Protocol Last Admin: 06/16/19 06:29 Dose: Not Given Ipratropium [place] (Atrovent 0.02% Nebulizer -) 1 amp NEB RQID [facility] Last Admin: 06/16/19 07:15 Dose: 1 amp Methylprednisolone Sodium Succinate (Solu-Medrol -) 40 mg IVPUSH Q8H-IV [facility] Last Admin: 06/16/19 09:24 Dose: 40 mg Roflumilast (Daliresp -) 500 mcg PO DAILY [facility] Last Admin: 06/16/19 09:25 Dose: 500 mcg - Objective Vital Signs: Vital Signs Temperature 97.5 F L 06/16/19 09:46 Pulse Rate 108 H 06/16/19 09:46 Respiratory Rate 20 06/16/19 09:46 Blood Pressure 142/77 06/16/19 09:46 O2 Sat by Pulse Oximetry (%) 95 06/15/19 09:00 Eyes: Yes: WNL, Conjunctiva Clear, EOM Intact HENT: Yes: WNL, Atraumatic, Normocephalic Neck: Yes: WNL, Supple, Trachea Midline Cardiovascular: Yes: WNL, Regular Rate and Rhythm Respiratory: Yes: Wheezes Gastrointestinal: Yes: WNL, Normal Bowel Sounds Genitourinary: Yes: WNL Musculoskeletal: Yes: WNL Extremities: Yes: WNL Edema: No Integumentary: Yes: WNL Neurological: Yes: WNL, Alert, Oriented ...Motor Strength: WNL Psychiatric: Yes: WNL Labs: CBC, BMP 06/13/19 06:00 06/13/19 06:00 INR, PTT INR 1.38 (0.83-1.09) H 06/12/19 16:50 Assessment/Plan 1. Clinical presentation c/w COPD exacerbation 2. Diastolic LV dysfunction with clinical 0 NYHA classification heart failure 3. PAF currently in sinus rhythm [id number] score of 3 on DOAC/Eliquis 4. HTN 5. Hypercholesterolemia 6. DM 7. History of PTE and DVT PLAN: 1. Echocardiography and nuclear MPI were done in the office. Will follow result 2. Ziopatch to come off today and will follow up result once available 3. Continue Eliquis 5 mg BID 4. Continue Cardizem CD 300 MG QD. Patient did not tolerate beta renata including Bystolic in the past 5. IV steroids, bronchodilator/nebulizer and O2 as per Pulmonary recommendation 6. Continue Atorvastatin coverage for dr. Pan
--- NOTE | 2019-06-16 11:41 | PN ---
Progress Note (short form) - Note Progress Note: PULMONARY States breathing slightly better. Minimal cough and wheezing. Vital Signs Period Temp Pulse Resp BP Sys/Jordan Pulse Ox Last 24 Hr 97.5 F-98.5 F 81-108 20-20 120-150/77-86 96 Gen: tachypneic with minimal exertion Heart: RRR Lung: distant breath sounds Abd: soft, nontender Ext: no edema CBC, BMP 06/13/19 06:00 06/13/19 06:00 Active Medications Acetaminophen (Tylenol -) 650 mg PO Q6H PRN PRN Reason: PAIN LEVEL 1-5 Al Hydroxide/Mg Hydroxide (Mylanta Oral Suspension -) 30 ml PO Q6H PRN PRN Reason: DYSPEPSIA Albuterol Sulfate (Ventolin 0.083% Nebulizer Soln -) 1 amp NEB RQID [facility] Last Admin: 06/16/19 11:39 Dose: 1 amp Amitriptyline HCl (Elavil -) 50 mg PO HS [facility] Last Admin: 06/15/19 21:50 Dose: 50 mg Apixaban (Eliquis -) 5 mg PO BID [facility] Last Admin: 06/16/19 09:24 Dose: 5 mg Atorvastatin Calcium (Lipitor -) 10 mg PO HS [facility] Last Admin: 06/15/19 21:50 Dose: 10 mg Clonazepam (Klonopin -) 0.5 mg PO BID [facility] Last Admin: 06/16/19 09:25 Dose: 0.5 mg Diltiazem HCl (Cardizem Cd -) 300 mg PO DAILY [facility] Last Admin: 06/16/19 09:25 Dose: 300 mg Famotidine (Pepcid -) 20 mg PO BID [facility] Last Admin: 06/16/19 09:24 Dose: 20 mg Insulin Aspart (Novolog Vial) 1 units SQ TIDAC [facility]; Protocol Last Admin: 06/16/19 06:29 Dose: Not Given Ipratropium [place] (Atrovent 0.02% Nebulizer -) 1 amp NEB RQID [facility] Last Admin: 06/16/19 11:38 Dose: 1 amp Methylprednisolone Sodium Succinate (Solu-Medrol -) 40 mg IVPUSH Q8H-IV [facility] Last Admin: 06/16/19 09:24 Dose: 40 mg Roflumilast (Daliresp -) 500 mcg PO DAILY [facility] Last Admin: 06/16/19 09:25 Dose: 500 mcg A/P Acute COPD Exacerbation LV Diastolic Dysfunction Paroxysmal Atrial Fibrillation HTN DM Hypercholesterolemia h/o DVT/PE - continue medrol at current dose - can likely change steroids to PO prednisone in AM if continues to improve - inhaled bronchodilators standing and PRN - O2 to keep SpO2 >90% - rate control - continue anticoagulation
[2019-06-16] MEDS ORDERED: INSULIN (NOVOLOG) ASPART 100 UNITS/ML 10ML VIAL ONE (11:59)
[2019-06-16] MEDS: AMITRIPTYLINE HCL 25 MG TABLET (FP) PO SCH (22:06)
[2019-06-16] MEDS: ATORVASTATIN CA 10 MG TABLET (FP) PO SCH (22:07)
[2019-06-17] MEDS: methylPREDNISolone NA SUCC 40 MG/1 ML VIAL IVPUSH SCH ×3 (02:54→17:29)
[2019-06-17] MEDS: INSULIN (NOVOLOG) ASPART 100 UNITS/ML 10ML VIAL SQ SCH ×3 (06:40→17:30)
[2019-06-17] MEDS: ALBUTEROL SO4 0.083% IH SOL 2.5 MG/3 ML VIAL.NEB. NEB SCH ×3 (08:00→20:30)
[2019-06-17] MEDS: IPRATROPIUM BR 0.02% 0.5 MG/2.5 ML VIAL.NEB. NEB SCH ×3 (08:00→20:30)
[2019-06-17] MEDS ORDERED: PT OWN MED DRAWER 7, Y5N ONE (10:29)
[2019-06-17] MEDS: ROFLUMILAST 500 MCG TABLET PO SCH (10:34)
[2019-06-17] MEDS: FAMOTIDINE 20 MG TABLET PO SCH ×2 (10:34→21:52)
[2019-06-17] MEDS: APIXABAN 5 MG TABLET PO SCH ×2 (10:34→21:51)
--- NOTE | 2019-06-17 10:34 | PN ---
Progress Note (short form) - Note Progress Note: Breathing os overall better but still with GONCALVES & dizziness just walking from the bathroom to her bed. Improving cough and wheezing. Intake & Output 06/14/19 06/15/19 06/16/19 06/17/19 23:59 23:59 23:59 23:59 Intake Total 1001 1440 730 Balance 1001 1440 730 Last Vital Signs Temp Pulse Resp BP Pulse Ox 98.7 F 80 20 130/70 96 06/17/19 00:04 06/17/19 00:04 06/17/19 00:04 06/17/19 00:04 06/16/19 09:00 Active Medications Acetaminophen (Tylenol -) 650 mg PO Q6H PRN PRN Reason: PAIN LEVEL 1-5 Al Hydroxide/Mg Hydroxide (Mylanta Oral Suspension -) 30 ml PO Q6H PRN PRN Reason: DYSPEPSIA Last Admin: 06/16/19 12:24 Dose: 30 ml Albuterol Sulfate (Ventolin 0.083% Nebulizer Soln -) 1 amp NEB RQID [facility] Last Admin: 06/17/19 08:00 Dose: Not Given Amitriptyline HCl (Elavil -) 50 mg PO [facility] Last Admin: 06/16/19 22:06 Dose: 50 mg Apixaban (Eliquis -) 5 mg PO BID [facility] Last Admin: 06/16/19 22:07 Dose: 5 mg Atorvastatin Calcium (Lipitor -) 10 mg PO [facility] Last Admin: 06/16/19 22:07 Dose: 10 mg Clonazepam (Klonopin -) 0.5 mg PO BID [facility] Last Admin: 06/16/19 22:07 Dose: 0.5 mg Diltiazem HCl (Cardizem Cd -) 300 mg PO DAILY [facility] Last Admin: 06/16/19 09:25 Dose: 300 mg Famotidine (Pepcid -) 20 mg PO BID [facility] Last Admin: 06/16/19 22:07 Dose: 20 mg Insulin Aspart (Novolog Vial) 1 units SQ TIDAC [facility]; Protocol Last Admin: 06/17/19 06:40 Dose: 2 unit Ipratropium [place] (Atrovent 0.02% Nebulizer -) 1 amp NEB RQID [facility] Last Admin: 06/17/19 08:00 Dose: Not Given Methylprednisolone Sodium Succinate (Solu-Medrol -) 40 mg IVPUSH Q8H-IV [facility] Last Admin: 06/17/19 02:54 Dose: 40 mg Roflumilast (Daliresp -) 500 mcg PO DAILY [facility] Last Admin: 06/16/19 09:25 Dose: 500 mcg Gen: Mildly tachypneic with minimal exertion Heart: RRR Lung: distant breath sounds Abd: soft, nontender Ext: no edema Laboratory Results - last 24 hr 06/16/19 06/16/19 06/17/19 11:29 16:55 06:38 POC Glucometer 180 275 152 A/P Acute COPD Exacerbation LV Diastolic Dysfunction Paroxysmal Atrial Fibrillation HTN DM Hypercholesterolemia h/o DVT/PE - continue medrol at current dose - can likely change steroids to PO prednisone in AM if continues to improve - inhaled bronchodilators standing and PRN - O2 to keep SpO2 >90% - rate control - continue anticoagulation - Check Pre and Post saturation - Would benefit from Pulm Rehab program - Anticipate DC in the next [address] Fang
[2019-06-17] MEDS: clonazePAM 0.5 MG TABLET PO SCH ×2 (10:35→21:52)
--- NOTE | 2019-06-17 12:41 | PN ---
Progress Note, Physician Chief Complaint: Persistent SOB, but better History of Present Illness: Patient was seen and examined. Awake and alert. Chart was reviewed Denies chest pain or palpitations - Current Medication List Current Medications: Active Medications Acetaminophen (Tylenol -) 650 mg PO Q6H PRN PRN Reason: PAIN LEVEL 1-5 Al Hydroxide/Mg Hydroxide (Mylanta Oral Suspension -) 30 ml PO Q6H PRN PRN Reason: DYSPEPSIA Last Admin: 06/16/19 12:24 Dose: 30 ml Albuterol Sulfate (Ventolin 0.083% Nebulizer Soln -) 1 amp NEB RQID [facility] Last Admin: 06/17/19 08:00 Dose: Not Given Amitriptyline HCl (Elavil -) 50 mg PO HS [facility] Last Admin: 06/16/19 22:06 Dose: 50 mg Apixaban (Eliquis -) 5 mg PO BID [facility] Last Admin: 06/17/19 10:34 Dose: 5 mg Atorvastatin Calcium (Lipitor -) 10 mg PO HS [facility] Last Admin: 06/16/19 22:07 Dose: 10 mg Clonazepam (Klonopin -) 0.5 mg PO BID [facility] Last Admin: 06/17/19 10:35 Dose: 0.5 mg Diltiazem HCl (Cardizem Cd -) 300 mg PO DAILY [facility] Last Admin: 06/17/19 10:35 Dose: 300 mg Famotidine (Pepcid -) 20 mg PO BID [facility] Last Admin: 06/17/19 10:34 Dose: 20 mg Insulin Aspart (Novolog Vial) 1 units SQ TIDAC [facility]; Protocol Last Admin: 06/17/19 06:40 Dose: 2 unit Ipratropium [place] (Atrovent 0.02% Nebulizer -) 1 amp NEB RQID [facility] Last Admin: 06/17/19 08:00 Dose: Not Given Methylprednisolone Sodium Succinate (Solu-Medrol -) 40 mg IVPUSH Q8H-IV [facility] Last Admin: 06/17/19 10:35 Dose: 40 mg Roflumilast (Daliresp -) 500 mcg PO DAILY [facility] Last Admin: 06/17/19 10:34 Dose: 500 mcg - Objective Vital Signs: Vital Signs Temperature 97.7 F 06/17/19 10:00 Pulse Rate 101 H 06/17/19 10:00 Respiratory Rate 19 06/17/19 10:00 Blood Pressure 113/75 06/17/19 10:00 O2 Sat by Pulse Oximetry (%) 96 06/17/19 09:00 Eyes: Yes: PERRL HENT: Yes: Atraumatic Neck: Yes: Supple Cardiovascular: Yes: Regular Rate and Rhythm, S1, S2 Respiratory: Yes: Diminished Gastrointestinal: Yes: Normal Bowel Sounds, Soft. No: Tenderness Edema: No Problem List - Problems (1) Diastolic dysfunction with acute on chronic heart failure Code(s): I50.33 - ACUTE ON CHRONIC DIASTOLIC (CONGESTIVE) HEART FAILURE (2) Hypercholesterolemia Code(s): E78.00 - PURE HYPERCHOLESTEROLEMIA, UNSPECIFIED (3) Diabetes mellitus Code(s): E11.9 - TYPE 2 DIABETES MELLITUS WITHOUT COMPLICATIONS (4) COPD exacerbation Code(s): J44.1 - CHRONIC OBSTRUCTIVE PULMONARY DISEASE W (ACUTE) EXACERBATION (5) Shortness of breath Code(s): R06.02 - SHORTNESS OF BREATH (6) Acute exacerbation of chronic obstructive pulmonary disease (COPD) Code(s): J44.1 - CHRONIC OBSTRUCTIVE PULMONARY DISEASE W (ACUTE) EXACERBATION (7) Anemia Code(s): D64.9 - ANEMIA, UNSPECIFIED Qualifiers: Anemia type: unspecified type Qualified Code(s): D64.9 - Anemia, unspecified (8) HTN (hypertension) Code(s): I10 - ESSENTIAL (PRIMARY) HYPERTENSION Qualifiers: Hypertension type: essential hypertension Qualified Code(s): I10 - Essential (primary) hypertension (9) Paroxysmal A-fib Code(s): I48.0 - PAROXYSMAL ATRIAL FIBRILLATION (10) Sleep apnea Code(s): G47.30 - SLEEP APNEA, UNSPECIFIED Assessment/Plan 1. Clinical presentation c/w COPD exacerbation 2. Diastolic LV dysfunction with clinical 0 NYHA classification heart failure 3. PAF currently in sinus rhythm [id number] score of 3 on DOAC/Eliquis 4. HTN 5. Hypercholesterolemia 6. DM 7. History of PTE and DVT PLAN: 1. Echocardiography and nuclear MPI were done in the office. Results to be discussed with Dr. Hernandes when patient has appointment Nov 2. Ziopatch to be mailed by patient for processing 3. Continue Eliquis 5 mg BID 4. Continue Cardizem CD 300 MG QD. Patient did not tolerate beta renata including Bystolic in the past 5. IV steroids, bronchodilator/nebulizer and O2 as per Pulmonary recommendation 6. Continue Atorvastatin Further plans are to follow Maykel Pan MD
--- NOTE | 2019-06-17 17:30 | PN ---
Progress Note (short form) - Note Progress Note: Pt seen/ examined chart reviewed awake/ feels better Vital Signs Temp 98.6 F 06/17/19 15:13 Pulse 94 H 06/17/19 15:13 Resp 19 06/17/19 15:13 BP 115/60 06/17/19 15:13 Pulse Ox 96 06/17/19 09:00 Intake & Output 06/16/19 06/17/19 06/17/19 23:59 11:59 23:59 Intake Total 520 620 Balance 520 620 Intake: Oral 520 Oral Supplement 620 Other: Voiding Method Toilet Toilet # Unmeasured Voids Void 3 Bowel Movement No Active Medications Acetaminophen (Tylenol -) 650 mg PO Q6H PRN PRN Reason: PAIN LEVEL 1-5 Al Hydroxide/Mg Hydroxide (Mylanta Oral Suspension -) 30 ml PO Q6H PRN PRN Reason: DYSPEPSIA Last Admin: 06/16/19 12:24 Dose: 30 ml Albuterol Sulfate (Ventolin 0.083% Nebulizer Soln -) 1 amp NEB RQID [facility] Last Admin: 06/17/19 08:00 Dose: Not Given Amitriptyline HCl (Elavil -) 50 mg PO [facility] Last Admin: 06/16/19 22:06 Dose: 50 mg Apixaban (Eliquis -) 5 mg PO BID [facility] Last Admin: 06/17/19 10:34 Dose: 5 mg Atorvastatin Calcium (Lipitor -) 10 mg PO [facility] Last Admin: 06/16/19 22:07 Dose: 10 mg Clonazepam (Klonopin -) 0.5 mg PO BID [facility] Last Admin: 06/17/19 10:35 Dose: 0.5 mg Diltiazem HCl (Cardizem Cd -) 300 mg PO DAILY [facility] Last Admin: 06/17/19 10:35 Dose: 300 mg Famotidine (Pepcid -) 20 mg PO BID [facility] Last Admin: 06/17/19 10:34 Dose: 20 mg Insulin Aspart (Novolog Vial) 1 units SQ TIDAC [facility]; Protocol Last Admin: 06/17/19 12:00 Dose: 2 unit Ipratropium [place] (Atrovent 0.02% Nebulizer -) 1 amp NEB RQID [facility] Last Admin: 06/17/19 08:00 Dose: Not Given Methylprednisolone Sodium Succinate (Solu-Medrol -) 40 mg IVPUSH Q8H-IV [facility] Last Admin: 06/17/19 10:35 Dose: 40 mg Roflumilast (Daliresp -) 500 mcg PO DAILY [facility] Last Admin: 06/17/19 10:34 Dose: 500 mcg CBC, BMP 06/13/19 06:00 06/13/19 06:00 Physical Exam S1 S2 RRR Lungs decreased breath sounds B/L , few scattered rhonchi Abd- soft , NT no edema PLAN --Continue with solumedrol-- -- nebs -- iv antibiotics -- check MRSA screen -- CTA chest negative for PE -- check pulse ox-- pre- post -d/w RN also Will follow Problem List - Problems (1) COPD exacerbation Code(s): J44.1 - CHRONIC OBSTRUCTIVE PULMONARY DISEASE W (ACUTE) EXACERBATION (2) HLD (hyperlipidemia) Code(s): E78.5 - HYPERLIPIDEMIA, UNSPECIFIED (3) HTN (hypertension) Code(s): I10 - ESSENTIAL (PRIMARY) HYPERTENSION Qualifiers: Hypertension type: essential hypertension Qualified Code(s): I10 - Essential (primary) hypertension
[2019-06-17] MEDS: AMITRIPTYLINE HCL 25 MG TABLET (FP) PO SCH (21:51)
[2019-06-17] MEDS: ATORVASTATIN CA 10 MG TABLET (FP) PO SCH (21:52)
[2019-06-18] MEDS: methylPREDNISolone NA SUCC 40 MG/1 ML VIAL IVPUSH SCH ×2 (02:11→09:20)
[2019-06-18] MEDS: INSULIN (NOVOLOG) ASPART 100 UNITS/ML 10ML VIAL SQ SCH ×2 (06:15→11:46)
[2019-06-18] MEDS ORDERED: PT OWN MED DRAWER 7, Y5N ONE (09:11)
[2019-06-18] MEDS: clonazePAM 0.5 MG TABLET PO SCH (09:20)
[2019-06-18] MEDS: FAMOTIDINE 20 MG TABLET PO SCH (09:20)
[2019-06-18] MEDS: ROFLUMILAST 500 MCG TABLET PO SCH (09:20)
[2019-06-18] MEDS: APIXABAN 5 MG TABLET PO SCH (09:20)
--- NOTE | 2019-06-18 10:36 | PN ---
Progress Note (short form) - Note Progress Note: Breathing is overall better. Requesting Pre and Post. Improving cough and wheezing. Intake & Output 06/15/19 06/16/19 06/17/19 06/18/19 23:59 23:59 23:59 23:59 Intake Total 1440 730 870 150 Balance 1440 730 870 150 Last Vital Signs Temp Pulse Resp BP Pulse Ox 98 F 95 H 19 118/60 98 06/18/19 06:24 06/18/19 06:24 06/18/19 06:24 06/18/19 06:24 06/17/19 21:00 Active Medications Acetaminophen (Tylenol -) 650 mg PO Q6H PRN PRN Reason: PAIN LEVEL 1-5 Al Hydroxide/Mg Hydroxide (Mylanta Oral Suspension -) 30 ml PO Q6H PRN PRN Reason: DYSPEPSIA Last Admin: 06/16/19 12:24 Dose: 30 ml Amitriptyline HCl (Elavil -) 50 mg PO HS [facility] Last Admin: 06/17/19 21:51 Dose: 50 mg Apixaban (Eliquis -) 5 mg PO BID [facility] Last Admin: 06/18/19 09:20 Dose: 5 mg Atorvastatin Calcium (Lipitor -) 10 mg PO HS [facility] Last Admin: 06/17/19 21:52 Dose: 10 mg Clonazepam (Klonopin -) 0.5 mg PO BID [facility] Last Admin: 06/18/19 09:20 Dose: 0.5 mg Diltiazem HCl (Cardizem Cd -) 300 mg PO DAILY [facility] Last Admin: 06/18/19 09:20 Dose: 300 mg Famotidine (Pepcid -) 20 mg PO BID [facility] Last Admin: 06/18/19 09:20 Dose: 20 mg Insulin Aspart (Novolog Vial) 1 units SQ TIDAC [facility]; Protocol Last Admin: 06/18/19 06:15 Dose: 4 unit Methylprednisolone Sodium Succinate (Solu-Medrol -) 40 mg IVPUSH Q8H-IV [facility] Last Admin: 06/18/19 09:20 Dose: 40 mg Roflumilast (Daliresp -) 500 mcg PO DAILY [facility] Last Admin: 06/18/19 09:20 Dose: 500 mcg Gen: NAD Heart: RRR Lung: distant breath sounds Abd: soft, nontender Ext: no edema Laboratory Results - last 24 hr 06/17/19 06/17/19 06/18/19 11:43 17:28 06:14 POC Glucometer 175 262 209 A/P Acute COPD Exacerbation LV Diastolic Dysfunction Paroxysmal Atrial Fibrillation HTN DM Hypercholesterolemia h/o DVT/PE - Prednisone taper - Check Pre and Post per patient request - continue anticoagulation - Would benefit from Pulm Rehab program - No smoking - No Pulmonary contraindication for DC - Zithromax 250mg PO TID - Follow with Dr Flores in the office in [address] Fang
--- NOTE | 2019-06-18 11:00 | DS ---
Physical Examination Vital Signs: Vital Signs Temperature 98 F 06/18/19 06:24 Pulse Rate 95 H 06/18/19 06:24 Respiratory Rate 19 06/18/19 06:24 Blood Pressure 118/60 06/18/19 06:24 O2 Sat by Pulse Oximetry (%) 98 06/17/19 21:00 Constitutional: Yes: No Distress, Calm Cardiovascular: Yes: Regular Rate and Rhythm Respiratory: Yes: Diminished Gastrointestinal: Yes: Normal Bowel Sounds, Soft. No: Tenderness Edema: No Labs: CBC, BMP 06/13/19 06:00 06/13/19 06:00 Discharge Summary Problems reviewed: Yes Reason For Visit: CHRONIC OBSTRUCTIVE PULMONARY DISEASE WITH ACUTE Current Active Problems COPD exacerbation (Acute) Diabetes mellitus (Acute) Diastolic dysfunction with acute on chronic heart failure (Acute) Emphysema of lung (Acute) Hypercholesterolemia (Acute) Shortness of breath (Acute) Hospital Course: Admitted for COPD exacerbation frequent COPD seen by Pulmonary and Cardiology started on iv solumedrol and antibiotics Pt better will be on Azithromycin every other day for prophylaxis needs cardiopulmonary rehab stable for dc to home Condition: Improved - Instructions Referrals: Cristal Ludwig MD [Primary Care Provider] - Disposition: HOME - Home Medications Comprehensive Discharge Medication List: Ambulatory Orders metFORMIN HCL [Glucophage -] 500 mg PO BID@0700,1630 #90 tablet 05/15/18 Apixaban [Eliquis] 5 mg PO BID 05/17/19 Atorvastatin Calcium [Lipitor] 10 mg PO HS 05/17/19 Cholecalciferol (Vitamin D3) [Vitamin D -] 2,000 unit PO DAILY 05/17/19 Cyanocobalamin [Vitamin B12 -] 1,000 mcg PO DAILY 05/17/19 Cyclosporine [Restasis] 1 each OP BID 05/17/19 Diltiazem Cd [Cardizem Cd -] 300 mg PO DAILY 05/17/19 Fluticasone/Vilanterol [Breo Ellipta 200-25 Mcg INH] 1 each IH DAILY 05/17/19 Levalbuterol Tartrate [Xopenex Hfa] 1 puff IH BID PRN 05/17/19 [place]-3S/Dha/Epa/Fish Oil [Fish Oil 1,000 mg Softgel] 1 each PO DAILY 05/17/19 Polyvinyl Alcohol [Artificial Tears] 1 drop OD QID 05/17/19 Prednisolone Acetate/Pf [Prednisolone Acet 1% Eye Drop] 5 ml OP TID PRN Roflumilast [Daliresp -] 500 mcg PO DAILY 05/17/19 Tiotropium [place] [Spiriva] 18 mcg IH DAILY 05/17/19 clonazePAM [Klonopin -] 0.5 mg PO PRN PRN 05/17/19 Amitriptyline HCl [Elavil -] 50 mg PO HS tablet 05/21/19 Cefuroxime Axetil [Ceftin -] 500 mg PO Q12H #8 tablet 05/21/19 predniSONE [Deltasone -] See Taper PO ASDIR #60 tab 05/21/19
[2019-06-18 12:00] VITALS: TEMP 97.9
[2019-06-18 14:56] VITALS: BP 150/72; PULSE 101
== END 2019-06-18 16:32 | disposition home or self-care (01) | DRG 191 ==
LOC: JER 15:44 → JERBED 18:09 → J6S 06-13 15:25
PROVIDERS: ADMIT Internal Medicine; ATTEND Internal Medicine
DX: J44.1 Chronic obstructive pulmonary disease with (acute) exacerbation (principal); I50.32 Chronic diastolic (congestive) heart failure; J44.9 Chronic obstructive pulmonary disease, unspecified; D64.9 Anemia, unspecified; I48.0 Paroxysmal atrial fibrillation; E11.9 Type 2 diabetes mellitus without complications; E78.5 Hyperlipidemia, unspecified; I11.0 Hypertensive heart disease with heart failure; D72.829 Elevated white blood cell count, unspecified
CPT/HCPCS: 36415; 71046-TC-FY; 71275-TC; 80048; 80053; 82550; 82962; 84484; 85025; 85610; 85730; 93005; 93010; 94640; 94761; 99285-25

== ENCOUNTER 2019-06-27 16:12 | Emergency (ER) | payer OTHER, BC ==
[2019-06-27 16:18] VITALS: BMI 29.7
[2019-06-27] MEDS ORDERED: ALBUTEROL SO4 2.5/IPRATROPIUM 0.5 INH SOL 3 ML VIAL.NEB. NEB ONE ×4 (17:19→20:35)
--- NOTE | 2019-06-27 17:30 | PDOC ---
History of Present Illness - General Chief Complaint: Cold Symptoms Stated Complaint: COPD Time Seen by Provider: 06/27/19 16:36 History Source: Patient - History of Present Illness Initial Comments: 06/27/19 17:28 59 yo F PMH of COPD, HTN, RUE DVT (on Eliquis), A fib, DM, LV diastolic dysfnction presents to the ED with sore throat and shortness of breath. pt states she has been having the sore throat since last week. pt states that her sore throat has worsened and she has been weaker since this morning. she becomes short of breath more easily, worse with walking. she also is experiencing chest tightness. pt states her last prednisone dose was either today or yesterday. she states she frequently feels like this when she stops her prednisone. pt denies fevers/ chills, cough, chest pain. she states she occasionally has palpitations. 06/27/19 17:57 Past History - Past Medical History Allergies/Adverse Reactions: Allergies Allergy/AdvReac Type Severity Reaction Status Date / Time Penicillins Allergy Hives Verified 06/27/19 16:18 Sulfa (Sulfonamide Allergy Hives Verified 06/27/19 16:18 Antibiotics) [Sulfa(Sulfonamide Antibiotics)] Home Medications: Ambulatory Orders metFORMIN HCL [Glucophage -] 500 mg PO BID@0700,1630 #90 tablet 05/15/18 Apixaban [Eliquis] 5 mg PO BID 05/17/19 Atorvastatin Calcium [Lipitor] 10 mg PO HS 05/17/19 Cholecalciferol (Vitamin D3) [Vitamin D -] 2,000 unit PO DAILY 05/17/19 Cyanocobalamin [Vitamin B12 -] 1,000 mcg PO DAILY 05/17/19 Cyclosporine [Restasis] 1 each OP BID 05/17/19 Diltiazem Cd [Cardizem Cd -] 300 mg PO DAILY 05/17/19 Fluticasone/Vilanterol [Breo Ellipta 200-25 Mcg INH] 1 each IH DAILY 05/17/19 Levalbuterol Tartrate [Xopenex Hfa] 1 puff IH BID PRN 05/17/19 [place]-3S/Dha/Epa/Fish Oil [Fish Oil 1,000 mg Softgel] 1 each PO DAILY 05/17/19 Polyvinyl Alcohol [Artificial Tears] 1 drop OD QID 05/17/19 Roflumilast [Daliresp -] 500 mcg PO DAILY 05/17/19 Tiotropium [place] [Spiriva] 18 mcg IH DAILY 05/17/19 clonazePAM [Klonopin -] 0.5 mg PO PRN PRN 05/17/19 Amitriptyline HCl [Elavil -] 50 mg PO HS tablet 05/21/19 predniSONE [Deltasone -] See Taper PO ASDIR #60 tab 05/21/19 Azithromycin 250 mg PO Q2D #60 tablet 06/18/19 Famotidine [Pepcid -] 20 mg PO BID tablet 06/18/19 Nystatin Oral Suspension - [Nystatin Oral Susp 703292 Units/5 ML -] 5 ml PO DAILY 14 Days #14 cup 06/27/19 Anemia: No Asthma: Yes Cancer: No Cardiac Disorders: Yes (Tachycardia) CVA: No COPD: Yes CHF: No DVT: No Dementia: No Diabetes: Yes (BORDERLINE) GI Disorders: Yes (GERD) Disorders: No HTN: Yes Hypercholesterolemia: Yes Liver Disease: No Seizures: No Thyroid Disease: Yes (NODULES) - Surgical History Abdominal Surgery: Yes (POLYP REMOVED FROM UTERUS 09/06/13) Appendectomy: No Cardiac Surgery: No Cholecystectomy: No GI Surgery: Yes (umbilical hernia/wound vac) Lung Surgery: No Neurologic Surgery: No Orthopedic Surgery: Yes (BUNION REMOVAL RT FOOT 2013) - Immunization History Immunization Up to Date: Yes - Psycho Social/Smoking Cessation Hx Smoking Status: Yes Smoking History: Never smoked Have you smoked in the past 12 months: No Number of Cigarettes Smoked Daily: 0 If you are a former smoker, when did you quit?: 2012 'Breaking Loose' booklet given: 10/28/13 Hx Alcohol Use: No Drug/Substance Use Hx: No Substance Use Type: None Hx Substance Use Treatment: No *Physical Exam - Vital Signs Last Vital Signs Temp Pulse Resp BP Pulse Ox 98.3 F 101 H 18 99/57 L 98 06/27/19 16:16 06/27/19 16:16 06/27/19 16:16 06/27/19 16:18 06/27/19 16:16 - Physical Exam General Appearance: Yes: Nourished, Appropriately Dressed. No: Apparent Distress HEENT: positive: Normal Voice, Pharynx Normal, Thrush, Other (exopthalmous) Neck: positive: Lymphadenopathy (L), Tender lateral (L side ) Respiratory/Chest: positive: Lungs Clear, Normal Breath Sounds. negative: Respiratory Distress, Accessory Muscle Use, Crackles, Wheezing Cardiovascular: positive: Regular Rhythm, S1, S2, Tachycardia Gastrointestinal/Abdominal: positive: Normal Bowel Sounds, Tender (suprapubic ) , Soft. negative: Guarding, Rebound Musculoskeletal: negative: CVA Tenderness Extremity: negative: Swelling, Calf Tenderness Integumentary: positive: Normal Color, Dry, Warm Neurologic: positive: Fully Oriented ED Treatment Course - LABORATORY CBC & Chemistry Diagram: 06/27/19 18:15 06/27/19 18:15 - RADIOLOGY Radiology Studies Ordered: Category Date Time Status CHEST X-RAY PORTABLE* [RAD] Stat Radiology 06/27/19 17:20 Ordered Medical Decision Making - Medical Decision Making 06/27/19 18:32 59 yo F presenting with sore throat, SOB, weakness -CBC, CMP -EKG: tachycardia -CXR -duonebs -Nystatin swish and swallow for oral candidiasis -TSH 06/27/19 19:04 -centor score 1 , no need for further strep testing 06/27/19 19:15 -bnp wnl, tsh wnl -vbg reviewed, not retaining CO2 06/27/19 19:16 06/27/19 19:17 -cxr reviewed, no acute pulm process 06/27/19 19:23 -given additional duonebs. will send home with nystatin swish/ swallow 06/27/19 21:18 Discharge - Discharge Information Problems reviewed: Yes Clinical Impression/Diagnosis: Candidiasis of mouth and esophagus, Emphysema of lung Condition: Stable Disposition: HOME - Admission No - Additional Discharge Information Prescriptions: Nystatin Oral Suspension - [Nystatin Oral Susp 331838 Units/5 ML -] 5 ml PO DAILY 14 Days #14 cup - Follow up/Referral Referrals: Cristal Ludwig MD [Primary Care Provider] - Jeff Floers MD [Staff Physician] - - Patient Discharge Instructions Patient Printed Discharge Instructions: DI for Chronic Obstructive Pulmonary Disease, DI for Thrush Additional Instructions: You came into the hospital with throat pain and shortness of breath. You have a fungal infection in your mouth. Please continue to use Nystatin swish and swallow for 2 weeks. Please continue to use your nebulizer as needed. Please continue to take your home medications as prescribed. Please follow up with your primary medical doctor to manage your improvement. Please follow up with your dicer operator, Dr. Flores, regarding your COPD. Please follow up with your dust mill operator to monitor your diabetes and your prior steroid use. If you have any new, worsening, or concerning symptoms please return to the ED. - Post Discharge Activity
[2019-06-27] MEDS ORDERED: SODIUM CHLORIDE 0.9% 1000 ML INFUS.BAG IV ONE (17:34)
[2019-06-27] MEDS ORDERED: LIDOCAINE VISCOUS 2% ORAL/TOP 20 ML UNIT-DOSE CUP MM ONE (18:03)
[2019-06-27] MEDS ORDERED: NYSTATIN 500,000 UNITS/5 ML SUSPENSION PO ONE (18:03)
--- NOTE | 2019-06-27 18:17 | PDOC ---
Attending Attestation - Resident Resident Name: Lidia Mccarty - ED Attending Attestation I have performed the following: I have examined & evaluated the patient, The case was reviewed & discussed with the resident, I agree w/resident's findings & plan, Exceptions are as noted - HPI HPI: 06/27/19 18:10 59yo female with hx of copd with recent copd exacerbation with sob today and sore throat. Pt states her last po dose of steroids was today - 10mg of prednisone today. Pt states she did not use her inhalers at home today. Pt denies cp. C/o sob. Also with sore throat. c/o epigastric abd pain. No n/v/d. No dysuria. Speaking in full sentences. Nontoxic in appearance. - Physicial Exam PE: 06/27/19 18:19 Gen: aaox3, nad heart: +s1s2 reg lungs: diminished bs b/l abd: mild epigastric ttp ext: no c/c/e - Medical Decision Making 06/27/19 18:20 59yo female with sob - suspect mild copd exacerbation -will give nebs -oral pharynx shows oral candidiasis - will give oral nystatin -will check labs -will obtain cxr -ekg -will monitor and reassess 06/27/19 19:07 cxr clear pt signed out to the oncoming ed team pending labs and re-eval Heart Score/ECG Review - ECG Intrepretation Comment:: 06/27/19 18:21 sinus tach at 109, nl axis, q waves inferiorly - which are age indeterminate, no acute st/t wave findings
[2019-06-27] MEDS ORDERED: LIDOCAINE VISCOUS 2% ORAL/TOP 20 ML UNIT-DOSE CUP ONE (18:31)
[2019-06-27 18:37] LABS: VENOUS PC02 40.3 mmHg (38-52); VENOUS PH 7.46 (7.31-7.41)
[2019-06-27 18:43] LABS: VENOUS PO2 < 49 mmHg (28-48)
[2019-06-27 18:57] LABS: INR 1.11 (0.83-1.09); PROTHROMBIN TIME (PATIENT) 13.1 SEC (9.7-13.0)
[2019-06-27 19:01] LABS: ACTIVATED PTT 26.7 SECONDS (25.2-36.5)
[2019-06-27 19:10] LABS: ALBUMIN 2.9 g/dl (3.4-5.0); ALK PHOS 97 U/L (45-117); ANION GAP 8 MMOL/L (8-16); BILIRUBIN,TOTAL 0.4 mg/dL (0.2-1); BLOOD UREA NITROGEN 12.6 mg/dL (7-18); CALCIUM 8.6 mg/dL (8.5-10.1); CHLORIDE 110 mmol/L (98-107); CO2 27 mmol/L (21-32); CREATININE 0.7 mg/dL (0.55-1.3); GLUCOSE,RANDOM 85 mg/dL (74-106); LIPASE 100 U/L (73-393); MAGNESIUM 1.8 mg/dL (1.8-2.4); N-TERMINAL BNP 65.2 pg/ml (5-125); POTASSIUM 3.5 mmol/L (3.5-5.1); SGOT/AST 7 U/L (15-37); SGPT/ALT 17 U/L (13-61); SODIUM 145 mmol/L (136-145); TOT PROT 5.3 g/dl (6.4-8.2)
[2019-06-27 19:21] LABS: BASO % 0.5 % (0-2.0); EOS % 1.8 % (0-4.5); HEMATOCRIT 31.2 % (32.4-45.2); LYMPH % 13.6 % (8-40); MCH 22.3 pg (25.7-33.7); MCHC 28.9 g/dl (32.0-36.0); MEAN CELL VOLUME 77.3 fl (80-96); MEAN PLT VOLUME 7.7 fl (7.5-11.1); MONO % 6.6 % (3.8-10.2); NEUT % 77.5 % (42.8-82.8); PLATELET COUNT 240 K/MM3 (134-434); RBC 4.04 M/mm3 (3.60-5.2); RDW 20.7 % (11.6-15.6); WHITE BLOOD COUNT 14.2 K/mm3 (4.0-10.0)
[2019-06-27 20:06] LABS: ANISOCYTOSIS 2+; MACROCYTOSIS 0; OVALOCYTE 1+; PLATELET ESTIMATE NORMAL
--- NOTE | 2019-06-27 21:11 | PDOC ---
*Physical Exam - Vital Signs Last Vital Signs Temp Pulse Resp BP Pulse Ox 98.3 F 101 H 18 99/57 L 100 06/27/19 16:16 06/27/19 16:16 06/27/19 16:16 06/27/19 16:18 06/27/19 18:32 - Physical Exam Comments: 06/27/19 21:09 Awake alert no acute distress lungs are diminished with end expiratory wheezing which is faint heard posteriorly at the bases heart is regular without murmurs rubs or gallops abdomen soft nontender extremities are warm well perfused no noted peripheral edema neurologically patient is awake alert and oriented x3 ED Treatment Course - LABORATORY CBC & Chemistry Diagram: 06/27/19 18:15 06/27/19 18:15 - ADDITIONAL ORDERS Additional order review: Laboratory Results 06/27/19 06/27/19 06/27/19 18:15 18:15 18:15 PT with INR INR PTT (Actin FS) VBG pH 7.46 H POC VBG pCO2 40.3 POC VBG pO2 < 49 H VBG HCO3 28.0 VBG O2 Sat (Meredith) 74.1 VBG Base Excess 4.2 H Sodium 145 Potassium 3.5 Chloride 110 H Carbon Dioxide 27 Anion Gap 8 BUN 12.6 Creatinine 0.7 Est GFR (CKD-EPI)AfAm 109.91 Est GFR (CKD-EPI)NonAf 94.84 Random Glucose 85 Calcium 8.6 Magnesium 1.8 Total Bilirubin 0.4 AST 7 L ALT 17 Alkaline Phosphatase 97 Creatine Kinase 26 Troponin I < 0.02 B-Natriuretic Peptide 65.2 Total Protein 5.3 L Albumin 2.9 L Lipase 100 TSH 0.47 06/27/19 18:15 PT with INR 13.10 H INR 1.11 H PTT (Actin FS) 26.7 VBG pH POC VBG pCO2 POC VBG pO2 VBG HCO3 VBG O2 Sat (Meredith) VBG Base Excess Sodium Potassium Chloride Carbon Dioxide Anion Gap BUN Creatinine Est GFR (CKD-EPI)AfAm Est GFR (CKD-EPI)NonAf Random Glucose Calcium Magnesium Total Bilirubin AST ALT Alkaline Phosphatase Creatine Kinase Troponin I B-Natriuretic Peptide Total Protein Albumin Lipase TSH 06/27/19 18:15 RBC 4.04 MCV 77.3 L MCHC 28.9 L RDW 20.7 H MPV 7.7 Neutrophils % 77.5 Lymphocytes % 13.6 D Monocytes % 6.6 D Eosinophils % 1.8 D Basophils % 0.5 D - Medications Given in the ED: ED Medications Discontinued Medications Generic Name Dose Route Start Last Admin Trade Name Francheska PRN Reason Stop Dose Admin Albuterol/Ipratropium 2 amp 06/27/19 17:19 06/27/19 18:29 Duoneb - NEB 06/27/19 17:20 2 amp ONCE ONE Administration Albuterol/Ipratropium 2 amp 06/27/19 20:29 06/27/19 20:42 Duoneb - NEB 06/27/19 20:30 2 amp ONCE ONE Administration Lidocaine HCl 20 ml 06/27/19 18:03 06/27/19 18:29 Xylocaine 2% Viscous Oral - MM 06/27/19 18:04 20 ml ONCE ONE Administration Nystatin 500,000 units 06/27/19 18:03 06/27/19 18:29 Nystatin Oral Suspension - PO 06/27/19 18:04 500,000 units ONCE ONE Administration Sodium Chloride 500 ml 06/27/19 17:34 06/27/19 18:29 Normal Saline - IV 06/27/19 17:35 500 ml ONCE ONE Administration Medical Decision Making - Medical Decision Making 06/27/19 21:10 59-year-old female history of COPD hypertension previous PE DVT on Eliquis here today complaining of sore throat. And shortness of breath. She was seen by the day team I assumed care of the patient at 7 PM previously diagnosed with thrush was given nystatin prior to my examination in addition she had faint wheezing on exam was given 2 DuoNeb's on my reassessment the patient is with some minimal wheezing will give a third treatment patient states she would like to go home due to her minimal wheezing heard on exam cushingoid appearance and presence of thrush steroids will not be reinitiated at this time she was told to follow-up with her extension edger Dr. Shi will likely DC home Discharge - Discharge Information Clinical Impression/Diagnosis: Candidiasis of mouth and esophagus, Emphysema of lung Condition: Stable - Follow up/Referral Referrals: Jeff Flores MD [Staff Physician] - Cristal Ludwig MD [Primary Care Provider] - - Patient Discharge Instructions Additional Instructions: You came into the hospital with throat pain and shortness of breath. You have a fungal infection in your mouth. Please continue to use Nystatin swish and swallow for 2 weeks. Please continue to use your nebulizer as needed. Please continue to take your home medications as prescribed. Please follow up with your primary medical doctor to manage your improvement. Please follow up with your extension edger, Dr. Flores, regarding your COPD. Please follow up with your trenching machine operator to monitor your diabetes and your prior steroid use. If you have any new, worsening, or concerning symptoms please return to the ED. - Post Discharge Activity
[2019-06-27 21:40] VITALS: BP 100/67; PULSE 85; TEMP 98.5
--- NOTE | 2019-06-28 13:59 | EKG ---
Test Reason : Blood Pressure : / mmHG Vent. Rate : 109 BPM Atrial Rate : 109 BPM P-R Int : 126 ms QRS Dur : 078 ms QT Int : 312 ms P-R-T Axes : 043 008 028 degrees QTc Int : 420 ms POOR DATA QUALITY, INTERPRETATION MAY BE ADVERSELY AFFECTED SINUS TACHYCARDIA WITH PREMATURE ATRIAL COMPLEXES POSSIBLE LEFT ATRIAL ENLARGEMENT LEFT VENTRICULAR HYPERTROPHY ABNORMAL ECG WHEN COMPARED WITH ECG OF 12-JUN-2019 15:45, PREMATURE ATRIAL COMPLEXES ARE NOW PRESENT Confirmed by NAVARRO HARPER MD ([id number]) on 06/28/2019 1:59:38 PM Referred By: Confirmed By:NAVARRO HARPER MD
== END 2019-06-27 21:41 | disposition home or self-care (01) ==
LOC: JER 16:12 → JERFT 16:12 → JER 21:41
PROC: 3E0F7GC Introduction of Other Therapeutic Substance into Respiratory Tract, Via Natural or Artificial Opening (ICD-10-PCS; principal; 2019-06-27)
PROC: 3E0F7GC Introduction of Other Therapeutic Substance into Respiratory Tract, Via Natural or Artificial Opening (ICD-10-PCS; 2019-06-27)
DX: J43.8 Other emphysema (principal); B37.0 Candidal stomatitis; I11.9 Hypertensive heart disease without heart failure; E11.9 Type 2 diabetes mellitus without complications; Z79.84 Long term (current) use of oral hypoglycemic drugs; I48.91 Unspecified atrial fibrillation; Z86.711 Personal history of pulmonary embolism; Z86.718 Personal history of other venous thrombosis and embolism; Z79.01 Long term (current) use of anticoagulants; Z88.0 Allergy status to penicillin; Z88.2 Allergy status to sulfonamides
CPT/HCPCS: 36415; 71045-TC-FY; 80053; 82550; 82803; 83690; 83735; 83880; 84443; 84484; 85025; 85610; 85730; 93005; 93010; 99285-25; J7030

== ENCOUNTER 2019-07-01 08:52 | Inpatient (IN) | payer OTHER, BC ==
--- NOTE | 2019-07-01 09:50 | PDOC ---
History of Present Illness - General Chief Complaint: Cold Symptoms Stated Complaint: R/O FLU Time Seen by Provider: 07/01/19 09:37 - History of Present Illness Initial Comments: 07/01/19 09:49 59 yo F PMH COPD, HTN, RUE DVT (on Eliquis), afib, NIDDM, GERD, LV diastolic dysfunction, anemia, notably seen here 06/27/2019 after steroid use with sore throat and found to have oral candidiasis, taking nystatin, p/w flu like symptoms. Began on Monday with generalized muscle aches and weakness, developed chills on Monday, continued malaise through today. Complains of some mild SOB that feels similar to her COPD. Denies CP, abd pain, N/V, constipation/diarrhea. Reports having a WALLS yesterday, took 500 mg X 6 without alleviation, however has resolved today. Further reports drinking a lot of water and frequent urination. Past History - Past Medical History Allergies/Adverse Reactions: Allergies Allergy/AdvReac Type Severity Reaction Status Date / Time Penicillins Allergy Hives Verified 06/27/19 16:18 Sulfa (Sulfonamide Allergy Hives Verified 06/27/19 16:18 Antibiotics) [Sulfa(Sulfonamide Antibiotics)] Home Medications: Ambulatory Orders metFORMIN HCL [Glucophage -] 500 mg PO BID@0700,1630 #90 tablet 05/15/18 Apixaban [Eliquis] 5 mg PO BID 05/17/19 Atorvastatin Calcium [Lipitor] 10 mg PO HS 05/17/19 Cholecalciferol (Vitamin D3) [Vitamin D -] 2,000 unit PO DAILY 05/17/19 Cyanocobalamin [Vitamin B12 -] 1,000 mcg PO DAILY 05/17/19 Cyclosporine [Restasis] 1 each OS BID 05/17/19 Diltiazem Cd [Cardizem Cd -] 300 mg PO DAILY 05/17/19 Levalbuterol Tartrate [Xopenex Hfa] 1 puff IH BID PRN 05/17/19 [place]-3S/Dha/Epa/Fish Oil [Fish Oil 1,000 mg Softgel] 1 each PO DAILY 05/17/19 Roflumilast [Daliresp] 500 mcg PO DAILY 05/17/19 Tiotropium [place] [Spiriva] 18 mcg IH DAILY 05/17/19 clonazePAM [Klonopin -] 0.5 mg PO PRN PRN 05/17/19 Amitriptyline HCl [Elavil -] 50 mg PO HS tablet 05/21/19 Azithromycin 250 mg PO Q2D #60 tablet 06/18/19 Budesonide/Formeterol Fumarate [SYMBICORT 160/4.5mcg -] 1 inh PO BID 07/01/19 Famotidine [Pepcid -] 40 mg PO BID 07/01/19 Anemia: No Asthma: Yes Cancer: No Cardiac Disorders: Yes (Tachycardia) CVA: No COPD: Yes CHF: No DVT: No Dementia: No Diabetes: Yes (BORDERLINE) GI Disorders: Yes (GERD) Disorders: No HTN: Yes Hypercholesterolemia: Yes Liver Disease: No Seizures: No Thyroid Disease: Yes (NODULES) - Surgical History Abdominal Surgery: Yes (POLYP REMOVED FROM UTERUS 09/06/13) Appendectomy: No Cardiac Surgery: No Cholecystectomy: No GI Surgery: Yes (umbilical hernia/wound vac) Lung Surgery: No Neurologic Surgery: No Orthopedic Surgery: Yes (BUNION REMOVAL RT FOOT 2013) - Immunization History Immunization Up to Date: Yes - Psycho Social/Smoking Cessation Hx Smoking Status: Yes Smoking History: Never smoked Have you smoked in the past 12 months: No Number of Cigarettes Smoked Daily: 0 If you are a former smoker, when did you quit?: 2012 'Breaking Loose' booklet given: 10/28/13 Hx Alcohol Use: No Drug/Substance Use Hx: No Substance Use Type: None Hx Substance Use Treatment: No Review of Systems - Review of Systems Comments:: 07/01/19 12:29 GENERAL/CONSTITUTIONAL: Chills, generalized malaise, generalized weakness HEAD, EYES, EARS, NOSE AND THROAT: No change in vision. No ear pain or discharge. No sore throat. CARDIOVASCULAR: No chest pain, mild shortness of breath. RESPIRATORY: No cough, mild wheezing, no hemoptysis. GASTROINTESTINAL: No nausea, vomiting, diarrhea or constipation. GENITOURINARY: No dysuria, frequency, or change in urination. MUSCULOSKELETAL: Generalized muscle aches and pains. SKIN: No rash NEUROLOGIC: Headache yesterday which has resolved, no vertigo, loss of consciousness, or change in strength/sensation. ENDOCRINE: Reports drinking a lot of water and frequent urination. HEMATOLOGIC/LYMPHATIC: No anemia, easy bleeding, or history of blood clots. ALLERGIC/IMMUNOLOGIC: No hives or skin allergy *Physical Exam - Vital Signs Last Vital Signs Temp Pulse Resp BP Pulse Ox 98.5 F 124 H 20 110/70 93 L 07/01/19 09:00 07/01/19 09:00 07/01/19 09:00 07/01/19 09:00 07/01/19 09:00 - Physical Exam Comments: 07/01/19 12:26 Gen: well-developed, well-nourished, NAD Neuro: AAOX4, CN II-XII intact, FTN intact, EOMI, PERRLA, 5/5 strength, SILT HEENT: atraumatic, normocephalic, dry mucous membranes, mild oral candidiasis Neck: trachea midline, supple CV: tachycardic, regular rhythm, no murmurs, rubs, or gallops Pulm: coarse lungs sounds, moderate expiratory wheezing Abd: obese, soft, non-distended, non-tender MSK: full ROM, intact pulses Extr: no edema, no deformities Skin: warm, dry, small 0.5cm bug bite on R gonzalez ED Treatment Course - LABORATORY CBC & Chemistry Diagram: 07/03/19 07:45 07/03/19 07:45 Medical Decision Making - Medical Decision Making 07/01/19 10:12 Concerning for flu v ACS v COPD exacerbation v CHF exacerbation. - CBC, CMP, EKG, trop - CXR - Mg, phos - BNP - lipase - reassess CXR with mildly increased atelectasis at R base, otherwise unremarkable. 07/01/19 12:20 EKG with sinus tachycardia at 128 bpm, LVH, LAD, no ischemic changes 07/01/19 12:46 WBC 15 however on steroids, Hgb 9.2 similar to previous 07/01/19 13:45 K 3.2, Mg 1.7, likely cause for weakness. Will give 40 PO K, replete Mg. Patient also complaining of headache, will give Ofirmev. 07/01/19 16:40 Patient with continued mild tachycardia despite fluid resuscitation, some ongoing SOB, hypoxic to 83%, history of PE on Eliquis in the past. Will get CTpe. 07/01/19 16:25 Patient continues to be hypoxic in low 80s, started 2L NC, up to 94%. Admit for hypoxia, SOB. Discharge - Discharge Information Problems reviewed: Yes Clinical Impression/Diagnosis: Hypokalemia, Hypomagnesemia, Hypoxia Condition: Stable - Follow up/Referral - Patient Discharge Instructions - Post Discharge Activity
[2019-07-01] MEDS ORDERED: MAG HYDROX/AL HYDROX/SIMETH 30 ML UNIT-DOSE CUP PO ONE (10:20)
[2019-07-01] MEDS ORDERED: ALBUTEROL SO4 2.5/IPRATROPIUM 0.5 INH SOL 3 ML VIAL.NEB. NEB ONE ×2 (10:20→10:39)
[2019-07-01] MEDS ORDERED: FAMOTIDINE 20 MG/50 ML IVPB 20 MG/50 ML MG IVPB ONE ×2 (10:20→10:39)
[2019-07-01] MEDS ORDERED: LACTATED RINGERS SOLUTION 1,000 ML/1,000 ML INFUS.BAG IV STA (10:54)
[2019-07-01 12:36] LABS: BASO % 1.6 % (0-2.0); EOS % 1.2 % (0-4.5); HEMATOCRIT 30.7 % (32.4-45.2); HEMOGLOBIN 9.2 GM/dL (10.7-15.3); LYMPH % 12.6 % (8-40); MCH 22.6 pg (25.7-33.7); MCHC 30.1 g/dl (32.0-36.0); MEAN CELL VOLUME 75.2 fl (80-96); MEAN PLT VOLUME 8.3 fl (7.5-11.1); MONO % 5.6 % (3.8-10.2); PLATELET COUNT 270 K/MM3 (134-434); RBC 4.08 M/mm3 (3.60-5.2); RDW 20.7 % (11.6-15.6)
[2019-07-01 13:03] LABS: MAGNESIUM 1.7 mg/dL (1.8-2.4); PHOSPHOROUS 3.1 mg/dL (2.5-4.9)
[2019-07-01 13:06] LABS: ALBUMIN 2.5 g/dl (3.4-5.0); ALK PHOS 94 U/L (45-117); ANION GAP 11 MMOL/L (8-16); BILIRUBIN,TOTAL 0.8 mg/dL (0.2-1); BLOOD UREA NITROGEN 13.5 mg/dL (7-18); CALCIUM 8.6 mg/dL (8.5-10.1); CHLORIDE 104 mmol/L (98-107); CO2 24 mmol/L (21-32); CREATININE 0.7 mg/dL (0.55-1.3); GLUCOSE,RANDOM 115 mg/dL (74-106); LIPASE 70 U/L (73-393); MAGNESIUM 1.6 mg/dL (1.8-2.4); N-TERMINAL BNP 53.1 pg/ml (5-125); PHOSPHOROUS 2.9 mg/dL (2.5-4.9); POTASSIUM 3.2 mmol/L (3.5-5.1); SGOT/AST 10 U/L (15-37); SGPT/ALT 12 U/L (13-61); SODIUM 139 mmol/L (136-145); TOT PROT 5.7 g/dl (6.4-8.2)
--- NOTE | 2019-07-01 13:18 | PDOC ---
Documentation entered by Christoph Martinez SCRIBE, acting as scribe for John Lui MD. John Lui MD: This documentation has been prepared by the Juan golden Daniel, SCRIBE, under my direction and personally reviewed by me in its entirety. I confirm that the documentation accurately reflects all work, treatment, procedures, and medical decision making performed by me. Attending Attestation - Resident Resident Name: John Black - ED Attending Attestation I have performed the following: I have examined & evaluated the patient, The case was reviewed & discussed with the resident, I agree w/resident's findings & plan - HPI HPI: 07/01/19 10:39 The patient is a 59 year old female with a past medical history of HTN, COPD, CHF, right upper extremity DVT, afib (eliquis), GERD, LV diastolic dysfunction, non insulin dependent diabetes here today for evaluation of general weakness and malaise. The patient was seen 4 days ago and was diagnosed with oral candidiasis and was prescribed nystatin. She notes that since then she has had general weakness, malaise, congestion, and subjective fevers. She also notes mild shortness of breath, increased thirst, urinary frequency, headache, and decreased appetite. Patient denies lightheadedness. Denies fever, chills. Denies chest pain. Denies nausea, vomiting, diarrhea, abdominal pain. Allergies: penicillins, sulfa PCP: Cristal Ludwig - Physicial Exam PE: 07/01/19 10:55 GENERAL: The patient is awake, alert, and fully oriented, in no acute distress. HEAD: Normal with no signs of trauma. EYES: Pupils equal, round and reactive to light, extraocular movements intact, sclera anicteric, conjunctiva clear with no pallor. ENT: Ears normal, nares patent, oropharynx clear without exudates. Moist mucous membranes. NECK: Normal range of motion, supple without lymphadenopathy, JVD, or masses. LUNGS: +tachypnea. +coarse breath sounds bilaterally. +crackles at the bases bilaterally. +upper lobes clear. No wheeze. HEART: +frequent premature beats. Regular rhythm, normal S1 and S2 without murmur or rub. ABDOMEN: Soft/nontender/nondistended. BS wnl. No guarding or rebound. No palpable masses. No hepatosplenomegaly. EXTREMITIES: Normal range of motion, no edema. No clubbing or cyanosis. No cords, erythema, or tenderness. NEUROLOGICAL: Cranial nerves II through XII grossly intact. Normal speech, normal gait. PSYCH: Normal mood, normal affect. SKIN: Warm, Dry, normal turgor, no rashes or lesions noted. - Medical Decision Making 07/01/19 10:50 59-year-old female with history of COPD recently discharged on 06/18 on steroid taper, seen again 4-5 days ago in the ED for complication of thrush, discharged home on nystatin, now presents for 2 days of generalized body aches with generalized weakness and chills, polydipsia and polyuria. Has not been checking her sugar levels, is not currently on steroids, is starting to feel some relief from the nystatin. Denies any chest pain, denies any new cough or shortness of breath. Exam as noted 59-year-old female with recent COPD exacerbation status post steroid course, here with generalized body aches and chills. Question superimposed infectious/ viral process, however DKA is also on the differential given her tachypnea/ polydipsia polyuria in the setting of recent steroid course. Labs, urinalysis EKG, chest x-ray IV fluids, nebulizers Reassess 07/01/19 16:22 labs as noted, wbc 15 in setting of recent steroids. cxr without acute infiltrate. received fluids, apap/toradol but remained persistently tachycardic to 107, tachypneic, and with o2 sat 83% on RA. will check cta chest for pna v. PE, needs admission for persistent hypoxic respiratory distress. Heart Score/ECG Review #1 ECG reviewed & interpreted by me at: 09:56 General ECG Interpretation: Sinus Rhythm (tachy at 128 with APCs noted), Normal Intervals (qtc 432, LVH), No acute ischemic changes
[2019-07-01] MEDS ORDERED: ACETAMINOPHEN 1000 MG/100 ML VIAL (NON FORMULARY) IVPB ONE ×2 (13:43→20:46)
[2019-07-01] MEDS ORDERED: MAGNESIUM SULF 50% (8.12 MEQ/2 ML-1 GM VIAL) IVPB ONE (13:44)
[2019-07-01] MEDS ORDERED: POTASSIUM CHLORIDE TABS 20 MEQ TABLET.ER (FP) PO ONE ×2 (13:44→14:21)
[2019-07-01] MEDS ORDERED: ACETAMINOPHEN INJECTION 100 ML IVPB ONE ×2 (14:22→21:16)
[2019-07-01] MEDS ORDERED: MAGNESIUM 1GM/D5W - 1 GM/100 ML IVPB IVPB ONE (14:22)
[2019-07-01] MEDS ORDERED: METOCLOPRAMIDE HCL 10 MG TABLET (FP) PO ONE ×2 (14:52→16:16)
[2019-07-01] MEDS ORDERED: KETOROLAC TROMETHAMINE 15 MG/ML VIAL IVPUSH ONE (14:54)
[2019-07-01 15:24] LABS: ANISOCYTOSIS 2+; PLATELET ESTIMATE NORMAL; TEAR DROP CELLS 1+
[2019-07-01] MEDS ORDERED: KETOROLAC TROMETHAMINE 15 MG/ML VIAL ONE (16:22)
--- NOTE | 2019-07-01 19:02 | PDOC ---
*Physical Exam - Vital Signs Last Vital Signs Temp Pulse Resp BP Pulse Ox 99.1 F 103 H 18 97/65 96 07/01/19 16:30 07/01/19 18:30 07/01/19 18:30 07/01/19 18:30 07/01/19 18:30 ED Treatment Course - LABORATORY CBC & Chemistry Diagram: 07/01/19 12:00 07/01/19 12:00 - ADDITIONAL ORDERS Additional order review: Laboratory Results 07/01/19 07/01/19 12:00 12:00 Sodium 139 Potassium 3.2 L Chloride 104 Carbon Dioxide 24 Anion Gap 11 BUN 13.5 Creatinine 0.7 Est GFR (CKD-EPI)AfAm 109.91 Est GFR (CKD-EPI)NonAf 94.84 Random Glucose 115 H Calcium 8.6 Phosphorus 3.1 2.9 Magnesium 1.7 L 1.6 L Total Bilirubin 0.8 AST 10 L ALT 12 L Alkaline Phosphatase 94 Troponin I < 0.02 B-Natriuretic Peptide 53.1 Total Protein 5.7 L Albumin 2.5 L Lipase 70 L 07/01/19 12:00 RBC 4.08 MCV 75.2 L MCHC 30.1 L RDW 20.7 H MPV 8.3 Neutrophils % 79.0 Lymphocytes % 12.6 Monocytes % 5.6 Eosinophils % 1.2 Basophils % 1.6 D - Medications Given in the ED: ED Medications Discontinued Medications Generic Name Dose Route Start Last Admin Trade Name Freq PRN Reason Stop Dose Admin Acetaminophen 1,000 mg 07/01/19 13:43 07/01/19 14:15 Ofirmev Injection - IVPB 07/01/19 13:44 1,000 mg ONCE ONE Administration Al Hydroxide/Mg Hydroxide 30 ml 07/01/19 10:20 07/01/19 10:30 Mylanta Oral Suspension - PO 07/01/19 10:21 30 ml ONCE ONE Administration Albuterol/Ipratropium 3 amp 07/01/19 10:20 07/01/19 10:30 Duoneb - NEB 07/01/19 10:21 3 amp ONCE ONE Administration Famotidine/Sodium Chloride 20 mg in 50 mls @ 100 mls/hr 07/01/19 10:20 12:17 Pepcid 20 Mg Premixed Ivpb - IVPB 07/01/19 10:49 100 mls/hr ONCE ONE Administration Lactated Ringer's 1,000 ml in 1,000 mls @ 500 mls/hr 07/01/19 10:54 07/01/19 12:18 Lactated Ringers Solution IV 07/01/19 12:53 500 mls/hr ONCE STA Administration Ketorolac Tromethamine 15 mg 07/01/19 14:54 07/01/19 16:45 Toradol Injection - IVPUSH 07/01/19 14:55 15 mg ONCE ONE Administration Magnesium Sulfate 1 gm 07/01/19 13:44 07/01/19 14:54 Magnesium Sulfate IVPB 07/01/19 13:45 1 gm ONCE ONE Administration Metoclopramide HCl 10 mg 07/01/19 14:52 07/01/19 16:40 Reglan - PO 07/01/19 14:53 10 mg ONCE ONE Administration Potassium Chloride 40 meq 07/01/19 13:44 07/01/19 14:15 K-Dur - PO 07/01/19 13:45 40 meq ONCE ONE Administration Medical Decision Making - Medical Decision Making 07/01/19 19:01 signed out from day team flu like sx about to dc then hypoxic 83 and tachy PE risk factors so CTPE f/u CT admit for hypoxia 07/01/19 20:16 CT PE IMPRESSION: No CT evidence of pulmonary embolism or other acute intrathoracic pathology. There is been no obvious interval change comparison to a prior CT study of . Advanced centrilobular emphysema. Possible thyromegaly. Correlate with thyroid function studies, consider nonemergent sonography. Admit for hypoxia 07/01/19 20:47 Endorsed patient to hospitalists: requesting BCx, UA, UC, lactate, repeat VS Discharge - Discharge Information Problems reviewed: Yes Clinical Impression/Diagnosis: Hypokalemia, Hypomagnesemia, Hypoxia Condition: Stable - Admission Yes - Follow up/Referral Referrals: Cristal Ludwig MD [Primary Care Provider] - - Patient Discharge Instructions Patient Printed Discharge Instructions: DI for Hypokalemia, DI for Hypomagnesemia Additional Instructions: Please use Tylenol or Motrin every 4-6 hours as needed for your headache. Please stay hydrated and take your medications as scheduled. Please follow up with your PCP within a week. Please return to the ED if you have new or worsening symptoms. - Post Discharge Activity
--- NOTE | 2019-07-01 21:01 | HP ---
Admitting History and Physical - Primary Care Physician PCP: Cristal Ludwig - Admission Chief Complaint: Flu like Symptoms, SOB History of Present Illness: This is a 59 y/o woman with a PMHx of COPD, HTN, Afib (Eliquis), RUE DVT (on Eliquis), LV Diastolic Dysfunction, NIDDM, Anemia, GERD, Thyroid Nodule. Last admission 05/2019- COPD Exacerbation. Who presents to the ED with Flu-like Symptoms, increased SOB x 2 days. Patient was seen in the ED 06/27 for sore throat- Oral Candidiasis- Rx Nystatin. Patient reports chills and generalized malaise as well. ED course was noted for: (1) Chest Xray image- increased markings (2) CTA- no evidence of PE or acute intrathoracic pathology, no obvious interval change. Advanced centriolobular emphysema. Possible Thyromegaly (3) Spo2 83-93% RA (4) Mg 1.7 (5) K 3.2 (6) WBC 15.0 History Source: Patient Limitations to Obtaining History: No Limitations - Past Medical History Cardiovascular: Yes: AFIB, CAD, CHF, Deep Vein Thrombosis, HTN, Hyperlipdemia Pulmonary: Yes: COPD, Pulmonary Embolus (on Eliquis) Gastrointestinal: Yes: GERD, Other (HERNIA REPAIR WITH COMPLICATIONS AND POST OP SBO) ...LMP: 06/30/13 Heme/Onc: Yes: B12 Deficiency Psych: Yes: Anxiety Musculoskeletal: Yes: Osteoarthritis Rheumatology: Yes: Other (OSTEOARTHRITIS) Endocrine: Yes: Diabetes Mellitus - Past Surgical History Past Surgical History: Yes: Hernia Repair - Smoking History Smoking history: Never smoked Have you smoked in the past 12 months: No Aproximately how many cigarettes per day: 0 If you are a former smoker, when did you quit?: 2013 - Alcohol/Substance Use Hx Alcohol Use: No History of Substance Use: reports: None - Social History Usual Living Arrangement: Yes: Alone ADL: Independent History of Recent Travel: No Home Medications - Allergies Allergies/Adverse Reactions: Allergies Allergy/AdvReac Type Severity Reaction Status Date / Time Penicillins Allergy Hives Verified 06/27/19 16:18 Sulfa (Sulfonamide Allergy Hives Verified 06/27/19 16:18 Antibiotics) [Sulfa(Sulfonamide Antibiotics)] - Home Medications Home Medications: Ambulatory Orders metFORMIN HCL [Glucophage -] 500 mg PO BID@0700,1630 #90 tablet 05/15/18 Apixaban [Eliquis] 5 mg PO BID 05/17/19 Atorvastatin Calcium [Lipitor] 10 mg PO HS 05/17/19 Cholecalciferol (Vitamin D3) [Vitamin D -] 2,000 unit PO DAILY 05/17/19 Cyanocobalamin [Vitamin B12 -] 1,000 mcg PO DAILY 05/17/19 Cyclosporine [Restasis] 1 each OS BID 05/17/19 Diltiazem Cd [Cardizem Cd -] 300 mg PO DAILY 05/17/19 Levalbuterol Tartrate [Xopenex Hfa] 1 puff IH BID PRN 05/17/19 [place]-3S/Dha/Epa/Fish Oil [Fish Oil 1,000 mg Softgel] 1 each PO DAILY 05/17/19 Roflumilast [Daliresp -] 500 mcg PO DAILY 05/17/19 Tiotropium [place] [Spiriva] 18 mcg IH DAILY 05/17/19 clonazePAM [Klonopin -] 0.5 mg PO PRN PRN 05/17/19 Amitriptyline HCl [Elavil -] 50 mg PO HS tablet 05/21/19 Azithromycin 250 mg PO Q2D #60 tablet 06/18/19 Budesonide/Formeterol Fumarate [SYMBICORT 160/4.5mcg -] 1 inh PO BID 07/01/19 Famotidine [Pepcid -] 40 mg PO BID 07/01/19 Family Medical History Family Hx Cancer: Father (Lung Ca- ) Family Hx Diabetes: Mother Review of Systems - Review of Systems Constitutional: reports: Chills, Weakness Eyes: reports: No Symptoms HENT: reports: No Symptoms Neck: reports: No Symptoms Cardiovascular: reports: Shortness of Breath Respiratory: reports: SOB Gastrointestinal: reports: No Symptoms Genitourinary: reports: No Symptoms Breasts: reports: No Symptoms Reported Musculoskeletal: reports: No Symptoms Integumentary: reports: No Symptoms Neurological: reports: Weakness Endocrine: reports: No Symptoms Hematology/Lymphatic: reports: No Symptoms Psychiatric: reports: No Symptoms Physical Examination Vital Signs: Vital Signs Temperature 99.1 F 07/01/19 16:30 Pulse Rate 103 H 07/01/19 18:30 Respiratory Rate 18 07/01/19 18:30 Blood Pressure 97/65 07/01/19 18:30 O2 Sat by Pulse Oximetry (%) 96 07/01/19 18:30 Constitutional: Yes: Well Nourished, No Distress, Calm Eyes: Yes: Conjunctiva Clear, EOM Intact, PERRL, Tearing HENT: Yes: WNL, Atraumatic, Normocephalic Neck: Yes: Supple, Trachea Midline, Thyromegaly Cardiovascular: Yes: Regular Rate and Rhythm, S1, S2 Gastrointestinal: Yes: WNL, Normal Bowel Sounds, Soft Renal/: Yes: WNL Breast(s): Yes: WNL Musculoskeletal: Yes: WNL Extremities: Yes: Erythema (Lateral Aspect RLE 2x2cm) Edema: No Peripheral Pulses WNL: Yes Integumentary: Yes: Erythema (RLE lateral aspect), Other (papule 0.5cm to lateral aspect of RLE) Neurological: Yes: WNL, Alert, Oriented, Cran Nerves II-XII Intact ...Motor Strength: WNL Psychiatric: Yes: WNL, Alert, Oriented Labs: CBC, BMP 07/01/19 12:00 07/01/19 12:00 Laboratory Results - last 24 hr 07/01/19 07/01/19 07/01/19 10:30 12:00 12:00 WBC 15.0 H RBC 4.08 Hgb 9.2 L Hct 30.7 L MCV 75.2 L MCH 22.6 L MCHC 30.1 L RDW 20.7 H Plt Count 270 MPV 8.3 Absolute Neuts (auto) 11.8 H Neutrophils % 79.0 Lymphocytes % 12.6 Monocytes % 5.6 Eosinophils % 1.2 Basophils % 1.6 D Nucleated RBC % 0 Platelet Estimate Normal Polychromasia 2+ Poikilocytosis 2+ Anisocytosis 2+ Microcytosis 2+ Tear Drop Cells 1+ Schistocytes 2+ Sodium 139 Potassium 3.2 L Chloride 104 Carbon Dioxide 24 Anion Gap 11 BUN 13.5 Creatinine 0.7 Est GFR (CKD-EPI)AfAm 109.91 Est GFR (CKD-EPI)NonAf 94.84 Random Glucose 115 H Calcium 8.6 Phosphorus 2.9 Magnesium 1.6 L Total Bilirubin 0.8 AST 10 L ALT 12 L Alkaline Phosphatase 94 Troponin I < 0.02 B-Natriuretic Peptide 53.1 Total Protein 5.7 L Albumin 2.5 L Lipase 70 L Influenza A (Rapid) Negative Influenza B (Rapid) Negative 07/01/19 12:00 WBC RBC Hgb Hct MCV MCH MCHC RDW Plt Count MPV Absolute Neuts (auto) Neutrophils % Lymphocytes % Monocytes % Eosinophils % Basophils % Nucleated RBC % Platelet Estimate Polychromasia Poikilocytosis Anisocytosis Microcytosis Tear Drop Cells Schistocytes Sodium Potassium Chloride Carbon Dioxide Anion Gap BUN Creatinine Est GFR (CKD-EPI)AfAm Est GFR (CKD-EPI)NonAf Random Glucose Calcium Phosphorus 3.1 Magnesium 1.7 L Total Bilirubin AST ALT Alkaline Phosphatase Troponin I B-Natriuretic Peptide Total Protein Albumin Lipase Influenza A (Rapid) Influenza B (Rapid) Intake & Output 06/28/19 06/29/19 06/30/19 07/01/19 23:59 23:59 23:59 23:59 Weight 76.204 kg Current Medications Generic Name Dose Route Start Last Admin Trade Name Freq PRN Reason Stop Dose Admin Amitriptyline HCl 50 mg 07/01/19 23:46 07/02/19 00:20 Elavil - PO 50 mg HS SANDEEP Administration Apixaban 5 mg 07/01/19 23:45 07/02/19 00:20 Eliquis - PO 5 mg BID SANDEEP Administration Atorvastatin Calcium 10 mg 07/01/19 23:45 07/02/19 00:20 Lipitor - PO 10 mg HS SANDEEP Administration Budesonide/Formoterol Fumarate 1 puff 07/01/19 23:45 07/02/19 01:15 Symbicort 160/4.5mcg - IH 1 puff BID SANDEEP Administration Cholecalciferol 2,000 unit 07/02/19 10:00 Vitamin D3 - PO DAILY SANDEEP Cyanocobalamin 1,000 mcg 07/02/19 10:00 Vitamin B12 - PO DAILY SANDEEP Famotidine 40 mg 07/02/19 10:00 Pepcid - PO BID SANDEEP Non-Formulary Medication 1 each 07/01/19 23:45 Cyclosporine [Restasis] OS BID SANDEEP Non-Formulary Medication 1 each 07/02/19 10:00 [place]-3s/Dha/Epa/Fish Oil [Fish Oil 1,000 Mg Softgel] PO DAILY SANDEEP Nystatin 500,000 units 07/02/19 00:00 07/02/19 06:12 Nystatin Oral Suspension - PO 500,000 units Q6HPO SANDEEP Administration Roflumilast 500 mcg 07/02/19 10:00 Daliresp - PO DAILY SANDEEP Tiotropium [place] 2 puff 07/02/19 10:00 Spiriva Respimat IH DAILY SANDEEP Imaging - Results Chest X-ray: Report Reviewed, Image Reviewed Cat Scan: Report Reviewed, Image Reviewed EKG: Image Reviewed Problem List - Problems (1) Acute and chronic respiratory failure with hypoxia Assessment/Plan: Admit to M/S Likely secondary to advanced Emphysema Appreciate Pulmonology consult O2 Continue Symbicort Duoneb prn Peakflow Monitor vitals Problems reviewed: Yes Code(s): J96.21 - ACUTE AND CHRONIC RESPIRATORY FAILURE WITH HYPOXIA (2) COPD (chronic obstructive pulmonary disease) Assessment/Plan: Chest Xray report- increased markings to bases O2 Duonebs Continue home meds Appreciate Pulmonology consult Code(s): J44.9 - CHRONIC OBSTRUCTIVE PULMONARY DISEASE, UNSPECIFIED (3) Emphysema of lung Assessment/Plan: Chest Xray- reviewed Appreciate Pulm Consult O2 prn Code(s): J43.9 - EMPHYSEMA, UNSPECIFIED (4) Hypokalemia Assessment/Plan: Repleted in ED Check K in am EKG reviewed Code(s): E87.6 - HYPOKALEMIA (5) Hypomagnesemia Assessment/Plan: Repleted in ED Check Mg in am EKG- reviewed Code(s): E83.42 - HYPOMAGNESEMIA (6) Cellulitis of right leg Assessment/Plan: Appreciate ID consult Will empirically treat with Vancomycin Blood Cultures-pending +Leukocytosis Monitor CBC Monitor vitals Code(s): L03.115 - CELLULITIS OF RIGHT LOWER LIMB (7) Diastolic dysfunction with acute on chronic heart failure Assessment/Plan: Chest xray report- increased markings at bases compatible with atelectasis EKG reviewed O2 Code(s): I50.33 - ACUTE ON CHRONIC DIASTOLIC (CONGESTIVE) HEART FAILURE (8) Diabetes mellitus Assessment/Plan: stable BGMs Hold Metformin secondary to lactic acidosis Code(s): E11.9 - TYPE 2 DIABETES MELLITUS WITHOUT COMPLICATIONS (9) Paroxysmal A-fib Assessment/Plan: stable [id number] Continue Eliquis Hold Cardizem for now secondary to Hypotension, resume when BP is normotensive EKG- reviewed Code(s): I48.0 - PAROXYSMAL ATRIAL FIBRILLATION (10) HTN (hypertension) Assessment/Plan: Hold BP Cardizem for now, secondary to Hypotension Monitor renal function Code(s): I10 - ESSENTIAL (PRIMARY) HYPERTENSION Qualifiers: Hypertension type: essential hypertension Qualified Code(s): I10 - Essential (primary) hypertension (11) HLD (hyperlipidemia) Assessment/Plan: Stable Continue Lipitor Monitor LFTs Code(s): E78.5 - HYPERLIPIDEMIA, UNSPECIFIED Assessment/Plan This is a 59 y/o woman with a PMHx of COPD, HTN, Afib (Eliquis), RUE DVT (on Eliquis), LV Diastolic Dysfunction, NIDDM, Anemia, GERD, Thyroid Nodule. Last admission 05/2019- COPD Exacerbation. Admitted for Acute on Chronic Respiratory Failure with Hypoxia, Hypokalemia, Hypomagnesia for further evaluation of their emergent condition. Plan: See Problem List FEN Repleted Mg and K in ED, monitor closely replete as indicated Low Na, Diabetic Diet DVT ppx OOB SCDs Continue Eliquis Dispo: Requires Inpatient Care Visit type - Emergency Visit Emergency Visit: Yes ED Registration Date: 07/01/19 Care time: The patient presented to the Emergency Department on the above date and was hospitalized for further evaluation of their emergent condition. - New Patient This patient is new to me today: Yes Date on this admission: 07/01/19 - Critical Care Critical Care patient: No
[2019-07-01] MEDS ORDERED: PATIENT'S OWN MEDICATION (NON-FORMULARY) (Cyclosporine [Restasis] 1 EACH) OS SCH (23:45)
[2019-07-02] MEDS ORDERED: APIXABAN 5 MG TABLET ONE (00:07)
[2019-07-02] MEDS ORDERED: ATORVASTATIN CA 10 MG TABLET (FP) ONE (00:08)
[2019-07-02] MEDS ORDERED: AMITRIPTYLINE HCL 25 MG TABLET (FP) ONE (00:08)
[2019-07-02] MEDS: AMITRIPTYLINE HCL 25 MG TABLET (FP) PO SCH ×2 (00:20→23:08)
[2019-07-02] MEDS: ATORVASTATIN CA 10 MG TABLET (FP) PO SCH ×2 (00:20→23:09)
[2019-07-02] MEDS: APIXABAN 5 MG TABLET PO SCH ×3 (00:20→23:09)
[2019-07-02] MEDS: NYSTATIN 500,000 UNITS/5 ML SUSPENSION PO SCH ×5 (01:15→23:09)
[2019-07-02] MEDS: BUDESONIDE/FORMETEROL FUMARATE 160/4.5 mcg INHALER IH SCH ×3 (01:15→23:08)
[2019-07-02 01:18] LABS: URINE APPEARANCE CLOUDY; URINE COLOR YELLOW
[2019-07-02 01:19] LABS: URINE BILIRUBIN NEGATIVE (NEGATIVE); URINE GLUCOSE (UA) NEGATIVE (NEGATIVE); URINE KETONE NEGATIVE (NEGATIVE)
[2019-07-02 01:20] LABS: URINE LEUK ESTERASE NEGATIVE (NEGATIVE); URINE NITRITE NEGATIVE (NEGATIVE); URINE PROTEIN 30 (NEGATIVE)
[2019-07-02 01:23] LABS: URINE RBC 115.9 /hpf (0-4); URINE WBC 5.9 /hpf (0-5)
[2019-07-02 01:24] LABS: EPI CELLS 10.2 /HPF (0-5/HPF); HYALINE CASTS NONE SEEN /lpf (0-8); URINE BACTERIA 6.5 /hpf (NEGATIVE); URINE CRYSTALS NONE SEEN /hpf; YEAST NONE SEEN (NEGATIVE)
[2019-07-02] MEDS ORDERED: IBUPROFEN 400 MG TABLET (FP) PO ONE (02:17)
[2019-07-02 05:32] VITALS: BMI 27.1
[2019-07-02 08:14] LABS: BASO % 0.6 % (0-2.0); EOS % 2.5 % (0-4.5); HEMATOCRIT 26.7 % (32.4-45.2); HEMOGLOBIN 8.1 GM/dL (10.7-15.3); LYMPH % 10.5 % (8-40); MCHC 30.2 g/dl (32.0-36.0); MEAN CELL VOLUME 76.1 fl (80-96); MONO % 8.8 % (3.8-10.2); NEUT % 77.6 % (42.8-82.8); PLATELET COUNT 238 K/MM3 (134-434); RBC 3.52 M/mm3 (3.60-5.2); RDW 21.1 % (11.6-15.6); WHITE BLOOD COUNT 9.3 K/mm3 (4.0-10.0)
[2019-07-02] MEDS ORDERED: VANCOMYCIN 1 GM in D5W (PRE-DOCKED) 1,000 MG/250 ML IVPB ONE (08:15)
[2019-07-02 08:43] LABS: CALCIUM 8.3 mg/dL (8.5-10.1); CREATININE 0.6 mg/dL (0.55-1.3); MAGNESIUM 2.1 mg/dL (1.8-2.4); POTASSIUM 3.4 mmol/L (3.5-5.1)
--- NOTE | 2019-07-02 09:31 | CON.PULM ---
Consult Consult Specialty:: PULM/CCM Referred by:: ZENA Reason for Consultation:: SOB - History of Present Illness Chief Complaint: Flu like symptoms History of Present Illness: 59 F, well known to our service. COPD due to previous smoking history, chronic breonchitis, HTN, Afib (Eliquis), RUE DVT, LV Diastolic Dysfunction, NIDDM, Anemia, GERD, and Thyroid Nodule. Multiple recent admissions for AE of COPD, last was 05/2019. Admitted via the ER due to generalized malaise, body aches, and increasing SOB over the past 2 days. Noted to be hypoxic to 83% on RA. Recent visit to the ER and was diagnosed with oral candidiasis. No travel history or sick contacts. No Hemoptysis or night sweats. CTA: No PE / moderate to severe emphysema / bronchiectasis / minimal atelectasis - History Source History Provided By: Patient Limitations to Obtaining History: No Limitations - Past Medical History Cardio/Vascular: Yes: AFIB, CAD, CHF, Deep Vein Thrombosis, HTN, Hyperlipdemia Pulmonary: Yes: Bronchitis, COPD, Pneumonia, Pulmonary Embolus (on Eliquis). No : Asthma, O2 Dependent, Previously Intubated, Pulmonary Fibrosis, Sleep Apnea Gastrointestinal: Yes: GERD, Other (HERNIA REPAIR WITH COMPLICATIONS AND POST OP SBO) ...LMP: 06/30/13 Psych: Yes: Anxiety Musculoskeletal: Yes: Osteoarthritis Rheumatology: Yes: Other (OSTEOARTHRITIS) Endocrine: Yes: Diabetes Mellitus - Past Surgical History Past Surgical History: Yes: Hernia Repair - Alcohol/Substance Use Hx Alcohol Use: No History of Substance Use: reports: None - Smoking History Smoking history: Never smoked Have you smoked in the past 12 months: No Aproximately how many cigarettes per day: 0 If you are a former smoker, when did you quit?: 2013 - Social History ADL: Independent History of Recent Travel: No Home Medications - Allergies Allergies/Adverse Reactions: Allergies Allergy/AdvReac Type Severity Reaction Status Date / Time Penicillins Allergy Hives Verified 06/27/19 16:18 Sulfa (Sulfonamide Allergy Hives Verified 06/27/19 16:18 Antibiotics) [Sulfa(Sulfonamide Antibiotics)] - Home Medications Home Medications: Ambulatory Orders metFORMIN HCL [Glucophage -] 500 mg PO BID@0700,1630 #90 tablet 05/15/18 Apixaban [Eliquis] 5 mg PO BID 05/17/19 Atorvastatin Calcium [Lipitor] 10 mg PO HS 05/17/19 Cholecalciferol (Vitamin D3) [Vitamin D -] 2,000 unit PO DAILY 05/17/19 Cyanocobalamin [Vitamin B12 -] 1,000 mcg PO DAILY 05/17/19 Cyclosporine [Restasis] 1 each OS BID 05/17/19 Diltiazem Cd [Cardizem Cd -] 300 mg PO DAILY 05/17/19 Levalbuterol Tartrate [Xopenex Hfa] 1 puff IH BID PRN 05/17/19 [place]-3S/Dha/Epa/Fish Oil [Fish Oil 1,000 mg Softgel] 1 each PO DAILY 05/17/19 Roflumilast [Daliresp] 500 mcg PO DAILY 05/17/19 Tiotropium [place] [Spiriva] 18 mcg IH DAILY 05/17/19 clonazePAM [Klonopin -] 0.5 mg PO PRN PRN 05/17/19 Amitriptyline HCl [Elavil -] 50 mg PO HS tablet 05/21/19 Azithromycin 250 mg PO Q2D #60 tablet 06/18/19 Budesonide/Formeterol Fumarate [SYMBICORT 160/4.5mcg -] 1 inh PO BID 07/01/19 Famotidine [Pepcid -] 40 mg PO BID 07/01/19 Review of Systems - Review of Systems Constitutional: reports: Lethargy, Malaise, Weakness. denies: Chills, Fever, Night Sweats Eyes: reports: No Symptoms HENT: reports: No Symptoms Neck: reports: No Symptoms Cardiovascular: reports: Shortness of Breath. denies: Chest Pain, Edema, Palpitations Respiratory: reports: Cough, SOB, SOB on Exertion, Wheezing. denies: Hemoptysis , Orthopnea, PND, Snoring Gastrointestinal: reports: No Symptoms Genitourinary: reports: No Symptoms Breasts: reports: No Symptoms Reported Musculoskeletal: reports: No Symptoms Integumentary: reports: No Symptoms Neurological: reports: No Symptoms Endocrine: reports: No Symptoms Hematology/Lymphatic: reports: No Symptoms Psychiatric: reports: No Symptoms Physical Exam Vital Sings: Vital Signs Temperature 97.4 F L 07/02/19 05:28 Pulse Rate 116 H 07/02/19 05:28 Respiratory Rate 22 H 07/02/19 06:00 Blood Pressure 104/61 07/02/19 05:28 O2 Sat by Pulse Oximetry (%) 96 07/02/19 06:00 Constitutional: Yes: No Distress, Calm Eyes: Yes: Conjunctiva Clear, EOM Intact HENT: Yes: Atraumatic, Normocephalic Neck: Yes: Supple, Trachea Midline Cardiovascular: Yes: Pulse Irregular Respiratory: Yes: Cough, Diminished, On Nasal O2, Rhonchi, SOB, SOB on Exertion , Tachypnea, Wheezes. No: Accessory Muscle Use, Rales, Stridor ...Inspection: Yes: WNL ...Clubbing: No Gastrointestinal: Yes: Normal Bowel Sounds, Soft Renal/: Yes: WNL Musculoskeletal: Yes: WNL Extremities: Yes: WNL Edema: No Peripheral Pulses WNL: Yes Integumentary: Yes: Other ((?) RLE pustule ) Neurological: Yes: WNL, Alert, Oriented ...Motor Strength: WNL Psychiatric: Yes: WNL, Alert, Oriented Labs: CBC, BMP 07/02/19 07:25 07/02/19 07:25 Imaging - Results Chest X-ray: Report Reviewed, Image Reviewed Cat Scan: Report Reviewed, Image Reviewed Problem List - Problems (1) Acute and chronic respiratory failure with hypoxia Code(s): J96.21 - ACUTE AND CHRONIC RESPIRATORY FAILURE WITH HYPOXIA (2) Hypoxia Code(s): R09.02 - HYPOXEMIA (3) Acute exacerbation of chronic obstructive pulmonary disease (COPD) Code(s): J44.1 - CHRONIC OBSTRUCTIVE PULMONARY DISEASE W (ACUTE) EXACERBATION (4) COPD (chronic obstructive pulmonary disease) Code(s): J44.9 - CHRONIC OBSTRUCTIVE PULMONARY DISEASE, UNSPECIFIED (5) Candidiasis of mouth and esophagus Code(s): B37.81 - CANDIDAL ESOPHAGITIS; B37.0 - CANDIDAL STOMATITIS (6) Diabetes mellitus Code(s): E11.9 - TYPE 2 DIABETES MELLITUS WITHOUT COMPLICATIONS (7) Diastolic dysfunction with acute on chronic heart failure Code(s): I50.33 - ACUTE ON CHRONIC DIASTOLIC (CONGESTIVE) HEART FAILURE (8) Dyspnea Code(s): R06.00 - DYSPNEA, UNSPECIFIED Qualifiers: Dyspnea type: dyspnea on exertion Qualified Code(s): R06.09 - Other forms of dyspnea (9) Emphysema of lung Code(s): J43.9 - EMPHYSEMA, UNSPECIFIED (10) HLD (hyperlipidemia) Code(s): E78.5 - HYPERLIPIDEMIA, UNSPECIFIED (11) HTN (hypertension) Code(s): I10 - ESSENTIAL (PRIMARY) HYPERTENSION Qualifiers: Hypertension type: essential hypertension Qualified Code(s): I10 - Essential (primary) hypertension (12) Hypercholesterolemia Code(s): E78.00 - PURE HYPERCHOLESTEROLEMIA, UNSPECIFIED (13) PUD (peptic ulcer disease) Code(s): K27.9 - PEPTIC ULC, SITE UNSP, UNSP AC OR CHR, W/O HEMOR OR PERF (14) Paroxysmal A-fib Code(s): I48.0 - PAROXYSMAL ATRIAL FIBRILLATION (15) Shortness of breath Code(s): R06.02 - SHORTNESS OF BREATH (16) Thyromegaly Code(s): E04.9 - NONTOXIC GOITER, UNSPECIFIED (17) Wheezing Code(s): R06.2 - WHEEZING Assessment/Plan Medrol BD TX Symbicort Zithromax every other day Daliresp OD O2 as needed Eliquis No smoking Will follow Thank you. Dr Fang
[2019-07-02] MEDS ORDERED: ALBUTEROL SO4 0.083% IH SOL 2.5 MG/3 ML VIAL.NEB. NEB PRN (09:38)
[2019-07-02] MEDS ORDERED: [UNRECOGNIZED DRUG - OTHER] PO SCH (10:00)
[2019-07-02] MEDS ORDERED: OMEGA PO SCH (10:00)
[2019-07-02] MEDS ORDERED: EPA PO SCH (10:00)
[2019-07-02] MEDS ORDERED: FISH OIL PO SCH (10:00)
[2019-07-02] MEDS ORDERED: DHA PO SCH (10:00)
[2019-07-02] MEDS ORDERED: PT OWN MED DRAWER 7, Y5N ONE ×2 (10:11→12:16)
[2019-07-02] MEDS: CHOLECALCIFEROL (VIT D3) 1,000 UNIT (25 MCG) TABLET PO SCH (10:20)
[2019-07-02] MEDS: AZITHROMYCIN 250 MG TABLET PO SCH (10:20)
[2019-07-02] MEDS: methylPREDNISolone NA SUCC 40 MG/1 ML VIAL IVPUSH SCH ×2 (10:21→17:03)
[2019-07-02] MEDS: CYANOCOBALAMIN 1,000 MCG TABLET (FP) PO SCH (10:21)
[2019-07-02] MEDS: FAMOTIDINE 40 MG TABLET PO SCH ×2 (10:30→23:08)
--- NOTE | 2019-07-02 10:44 | PN ---
Progress Note (short form) - Note Progress Note: No distress No increased wheezing or SOB Has right leg pain and blister Vital Signs - 24 hr 07/01/19 07/01/19 07/02/19 18:30 22:34 03:39 Temperature 99.1 F 99.4 F Pulse Rate Pulse Rate [ 103 H 103 H 121 H Apical] Respiratory 18 20 20 Rate Blood Pressure Blood Pressure 97/65 109/63 129/97 [Right Arm] O2 Sat by Pulse 96 95 95 Oximetry (%) 07/02/19 07/02/19 07/02/19 05:28 05:40 05:48 Temperature 97.4 F L Pulse Rate 116 H Pulse Rate [ Apical] Respiratory 22 H 22 H Rate Blood Pressure 104/61 Blood Pressure [Right Arm] O2 Sat by Pulse 96 96 Oximetry (%) 07/02/19 07/02/19 07/02/19 06:00 09:00 15:00 Temperature 98.2 F 98.4 F Pulse Rate 100 H 108 H Pulse Rate [ Apical] Respiratory 22 H 22 H 22 H Rate Blood Pressure 131/46 L 126/69 Blood Pressure [Right Arm] O2 Sat by Pulse 96 96 96 Oximetry (%) Current Medications Generic Name Dose Route Start Last Admin Trade Name Freq PRN Reason Stop Dose Admin Albuterol Sulfate 1 amp 07/02/19 14:00 07/02/19 14:40 Ventolin 0.083% Nebulizer Soln - NEB Not Given RTID SANDEEP Albuterol Sulfate 1 amp 07/02/19 09:38 Ventolin 0.083% Nebulizer Soln - NEB Q4H PRN SHORT OF BREATH/WHEEZING Amitriptyline HCl 50 mg 07/01/19 23:46 07/02/19 00:20 Elavil - PO 50 mg HS SANDEEP Administration Apixaban 5 mg 07/01/19 23:45 07/02/19 10:20 Eliquis - PO 5 mg BID SANDEEP Administration Atorvastatin Calcium 10 mg 07/01/19 23:45 07/02/19 00:20 Lipitor - PO 10 mg HS SANDEEP Administration Azithromycin 500 mg 07/02/19 10:00 07/02/19 10:20 Zithromax - PO 07/06/19 10:01 500 mg Q2D SANDEEP Administration Budesonide/Formoterol Fumarate 1 puff 07/01/19 23:45 07/02/19 10:28 Symbicort 160/4.5mcg - IH 1 puff BID SANDEEP Administration Cholecalciferol 2,000 unit 07/02/19 10:00 07/02/19 10:20 Vitamin D3 - PO 2,000 unit DAILY SANDEEP Administration Clonazepam 0.5 mg 07/02/19 10:41 Klonopin - PO Q6H PRN ANXIETY Cyanocobalamin 1,000 mcg 07/02/19 10:00 07/02/19 10:21 Vitamin B12 - PO 1,000 mcg DAILY SANDEEP Administration Diltiazem HCl 300 mg 07/02/19 11:00 07/02/19 12:18 Cardizem Cd - PO 300 mg DAILY SANDEEP Administration Famotidine 40 mg 07/02/19 10:00 07/02/19 10:30 Pepcid - PO 40 mg BID SANDEEP Administration Insulin Aspart 1 vial 07/02/19 11:00 07/02/19 12:30 Novolog Vial Sliding Scale - SQ 2 unit TIDAC SANDEEP Administration Protocol Methylprednisolone Sodium Succinate 40 mg 07/02/19 10:00 07/02/19 10:21 Solu-Medrol - IVPUSH 40 mg Q8H-IV SANDEEP Administration Non-Formulary Medication 1 each 07/01/19 23:45 Cyclosporine [Restasis] OS BID SANDEEP Non-Formulary Medication 1 each 07/02/19 10:00 [place]-3s/Dha/Epa/Fish Oil [Fish Oil 1,000 Mg Softgel] PO DAILY SANDEEP Nystatin 500,000 units 07/02/19 00:00 07/02/19 12:18 Nystatin Oral Suspension - PO 500,000 units Q6HPO SANDEEP Administration Roflumilast 500 mcg 07/02/19 10:00 07/02/19 12:19 Daliresp PO 500 mcg DAILY SANDEEP Administration Tiotropium [place] 2 puff 07/02/19 10:00 07/02/19 12:17 Spiriva Respimat IH 2 puff DAILY SANDEEP Administration Laboratory Results - last 24 hr 07/02/19 07/02/19 07/02/19 00:20 00:20 07:25 WBC 9.3 RBC 3.52 L Hgb 8.1 L Hct 26.7 L MCV 76.1 L MCH 23.0 L MCHC 30.2 L RDW 21.1 H Plt Count 238 MPV 8.0 Absolute Neuts (auto) 7.2 Neutrophils % 77.6 Lymphocytes % 10.5 Monocytes % 8.8 Eosinophils % 2.5 D Basophils % 0.6 Nucleated RBC % 0 Sodium Potassium Chloride Carbon Dioxide Anion Gap BUN Creatinine Est GFR (CKD-EPI)AfAm Est GFR (CKD-EPI)NonAf POC Glucometer Random Glucose Lactic Acid 2.2 H* Calcium Magnesium Urine Color Yellow Urine Appearance Cloudy Urine pH 5.0 D Ur Specific [place] 1.083 H Urine Protein 30 Urine Glucose (UA) Negative Urine Ketones Negative Urine Blood 3+ H Urine Nitrite Negative Urine Bilirubin Negative Urine Urobilinogen 1.0 Ur Leukocyte Esterase Negative Urine WBC (Auto) 5.9 Urine RBC (Auto) 115.9 Urine Casts (Auto) None seen U Epithel Cells (Auto) 10.2 Urine Crystals (Auto) None seen Urine Bacteria (Auto) 6.5 Urine Yeast (Auto) None seen 07/02/19 07/02/19 07/02/19 07:25 08:55 12:29 WBC RBC Hgb Hct MCV MCH MCHC RDW Plt Count MPV Absolute Neuts (auto) Neutrophils % Lymphocytes % Monocytes % Eosinophils % Basophils % Nucleated RBC % Sodium 141 Potassium 3.4 L Chloride 107 Carbon Dioxide 30 Anion Gap 4 L BUN 16.0 Creatinine 0.6 Est GFR (CKD-EPI)AfAm 115.63 Est GFR (CKD-EPI)NonAf 99.77 POC Glucometer 163 Random Glucose 111 H Lactic Acid 1.0 Calcium 8.3 L Magnesium 2.1 Urine Color Urine Appearance Urine pH Ur Specific [place] Urine Protein Urine Glucose (UA) Urine Ketones Urine Blood Urine Nitrite Urine Bilirubin Urine Urobilinogen Ur Leukocyte Esterase Urine WBC (Auto) Urine RBC (Auto) Urine Casts (Auto) U Epithel Cells (Auto) Urine Crystals (Auto) Urine Bacteria (Auto) Urine Yeast (Auto) patchy white on tongue S1 S2 RRR Lungs decreased breath sounds Abd-soft, NT right leg-- blister noted on anterior gonzalez with surrounding erythema, warm and tender PLAN IV Vanco ID eval Pulmonary eval noted replace potassium Check labs in AM cultures pending short duration steroids Zithromax every other day for COPD nystatin for thrush Problem List - Problems (1) Hypokalemia Code(s): E87.6 - HYPOKALEMIA (2) Asthma with COPD Code(s): J44.9 - CHRONIC OBSTRUCTIVE PULMONARY DISEASE, UNSPECIFIED; J45.909 - UNSPECIFIED ASTHMA, UNCOMPLICATED (3) Cellulitis of right leg Code(s): L03.115 - CELLULITIS OF RIGHT LOWER LIMB (4) HLD (hyperlipidemia) Code(s): E78.5 - HYPERLIPIDEMIA, UNSPECIFIED (5) HTN (hypertension) Code(s): I10 - ESSENTIAL (PRIMARY) HYPERTENSION Qualifiers: Hypertension type: essential hypertension Qualified Code(s): I10 - Essential (primary) hypertension (6) MRSA (methicillin resistant Staphylococcus aureus) infection Code(s): A49.02 - METHICILLIN RESIS STAPH INFECTION, UNSP SITE (7) Paroxysmal A-fib Code(s): I48.0 - PAROXYSMAL ATRIAL FIBRILLATION
[2019-07-02] MEDS ORDERED: POTASSIUM CHLORIDE TABS 20 MEQ TABLET.ER (FP) PO ONE (11:00)
--- NOTE | 2019-07-02 11:28 | EKG ---
Test Reason : Blood Pressure : / mmHG Vent. Rate : 128 BPM Atrial Rate : 128 BPM P-R Int : 128 ms QRS Dur : 084 ms QT Int : 296 ms P-R-T Axes : 061 021 032 degrees QTc Int : 432 ms SINUS TACHYCARDIA WITH PREMATURE ATRIAL COMPLEXES WITH ABERRANT CONDUCTION POSSIBLE LEFT ATRIAL ENLARGEMENT LEFT VENTRICULAR HYPERTROPHY ABNORMAL ECG WHEN COMPARED WITH ECG OF 27-JUN-2019 17:34, NO SIGNIFICANT CHANGE WAS FOUND Confirmed by MD Hannah, Ash ([id number]) on 07/02/2019 11:28:20 AM Referred By: Confirmed By:Ash Young MD
[2019-07-02] MEDS: TIOTROPIUM BROMIDE 2.5 MCG (SPIRIVA) RESPIMAT INHALER IH SCH (12:17)
[2019-07-02] MEDS: ROFLUMILAST 500 MCG TABLET PO SCH (12:19)
[2019-07-02] MEDS: INSULIN SLIDING SCALE (NOVOLOG) 1 VIAL SQ SCH ×2 (12:30→17:10)
[2019-07-02] MEDS ORDERED: INSULIN (NOVOLOG) ASPART 100 UNITS/ML 10ML VIAL ONE ×3 (12:32→18:31)
[2019-07-02] MEDS: ALBUTEROL SO4 0.083% IH SOL 2.5 MG/3 ML VIAL.NEB. NEB SCH ×2 (14:40→20:20)
--- NOTE | 2019-07-02 21:57 | PN ---
Progress Note (short form) - Note Progress Note: ID CONSULT DICTATED ? RECURRENT SOFT TISSUE INFECTION R THIGH HX MRSA EMPIRIC VANCOMYCIN LOCAL WOUND CARE
[2019-07-02] MEDS: clonazePAM 0.5 MG TABLET PO PRN (23:15)
[2019-07-03] MEDS: methylPREDNISolone NA SUCC 40 MG/1 ML VIAL IVPUSH SCH ×4 (01:27→23:02)
[2019-07-03] MEDS: INSULIN SLIDING SCALE (NOVOLOG) 1 VIAL SQ SCH ×3 (06:22→17:53)
[2019-07-03] MEDS: NYSTATIN 500,000 UNITS/5 ML SUSPENSION PO SCH ×3 (06:22→18:05)
[2019-07-03] MEDS: ALBUTEROL SO4 0.083% IH SOL 2.5 MG/3 ML VIAL.NEB. NEB SCH ×2 (07:30→14:12)
[2019-07-03 08:32] LABS: HEMOGLOBIN 8.2 GM/dL (10.7-15.3); MCHC 30.4 g/dl (32.0-36.0); MEAN CELL VOLUME 75.7 fl (80-96); MEAN PLT VOLUME 8.2 fl (7.5-11.1); PLATELET COUNT 307 K/MM3 (134-434); RBC 3.57 M/mm3 (3.60-5.2); RDW 20.5 % (11.6-15.6); WHITE BLOOD COUNT 8.6 K/mm3 (4.0-10.0)
[2019-07-03 09:07] LABS: ALBUMIN 2.3 g/dl (3.4-5.0); BILIRUBIN,TOTAL 0.3 mg/dL (0.2-1); BLOOD UREA NITROGEN 17.5 mg/dL (7-18); CALCIUM 8.6 mg/dL (8.5-10.1); CREATININE 0.5 mg/dL (0.55-1.3); MAGNESIUM 2.2 mg/dL (1.8-2.4); POTASSIUM 4.7 mmol/L (3.5-5.1); TOT PROT 5.5 g/dl (6.4-8.2)
[2019-07-03] MEDS ORDERED: PT OWN MED DRAWER 7, Y5N ONE (09:43)
[2019-07-03] MEDS: APIXABAN 5 MG TABLET PO SCH ×2 (10:11→22:27)
[2019-07-03] MEDS: CYANOCOBALAMIN 1,000 MCG TABLET (FP) PO SCH (10:11)
[2019-07-03] MEDS: CHOLECALCIFEROL (VIT D3) 1,000 UNIT (25 MCG) TABLET PO SCH (10:11)
[2019-07-03] MEDS: FAMOTIDINE 40 MG TABLET PO SCH ×2 (10:11→22:27)
[2019-07-03] MEDS: TIOTROPIUM BROMIDE 2.5 MCG (SPIRIVA) RESPIMAT INHALER IH SCH (10:12)
[2019-07-03] MEDS: BUDESONIDE/FORMETEROL FUMARATE 160/4.5 mcg INHALER IH SCH ×2 (10:13→22:47)
[2019-07-03] MEDS: VANCOMYCIN 1 GRAM (PRE-DOCKED) 1,000 MG/250 ML BAG IVPB SCH ×2 (10:13→21:39)
[2019-07-03] MEDS: ROFLUMILAST 500 MCG TABLET PO SCH (10:25)
[2019-07-03] MEDS ORDERED: ARTIFICIAL TEARS (POLYVINYL ALCOHOL) OPTH DROPS OU PRN (11:22)
[2019-07-03] MEDS ORDERED: SODIUM CHLORIDE NASAL SPRAY 44 ML BOTTLE NS PRN (11:22)
--- NOTE | 2019-07-03 11:32 | PN ---
Progress Note (short form) - Note Progress Note: No distress No increased wheezing or SOB Has right leg pain and blister blister getting bigger blood in nose after using dry O2 NC unable to get humidified O2 Vital Signs - 24 hr 07/02/19 07/02/19 07/02/19 15:00 16:30 18:00 Temperature 98.4 F 98.3 F Pulse Rate 108 H 99 H Respiratory 22 H 22 H 22 H Rate Blood Pressure 126/69 116/61 O2 Sat by Pulse 96 96 Oximetry (%) 07/02/19 07/03/19 22:00 06:59 Temperature 98.0 F 98.2 F Pulse Rate 114 H 98 H Respiratory 22 H 20 Rate Blood Pressure 146/74 147/78 O2 Sat by Pulse Oximetry (%) Current Medications Generic Name Dose Route Start Last Admin Trade Name Freq PRN Reason Stop Dose Admin Albuterol Sulfate 1 amp 07/02/19 14:00 07/02/19 20:20 Ventolin 0.083% Nebulizer Soln - NEB Not Given RTID SANDEEP Albuterol Sulfate 1 amp 07/02/19 09:38 Ventolin 0.083% Nebulizer Soln - NEB Q4H PRN SHORT OF BREATH/WHEEZING Amitriptyline HCl 50 mg 07/01/19 23:46 07/02/19 23:08 Elavil - PO 50 mg HS SANDEEP Administration Apixaban 5 mg 07/01/19 23:45 07/03/19 10:11 Eliquis - PO 5 mg BID SANDEEP Administration Artificial Tears 1 drop 07/03/19 11:22 Artificial Tears OU QID PRN DRY EYES Atorvastatin Calcium 10 mg 07/01/19 23:45 07/02/19 23:09 Lipitor - PO 10 mg HS SANDEEP Administration Azithromycin 500 mg 07/02/19 10:00 07/02/19 10:20 Zithromax - PO 07/06/19 10:01 500 mg Q2D SANDEEP Administration Budesonide/Formoterol Fumarate 1 puff 07/01/19 23:45 07/03/19 10:13 Symbicort 160/4.5mcg - IH 1 puff BID SANDEEP Administration Cholecalciferol 2,000 unit 07/02/19 10:00 07/03/19 10:11 Vitamin D3 - PO 2,000 unit DAILY SANDEEP Administration Clonazepam 0.5 mg 07/02/19 10:41 11/12/19 23:15 Klonopin - PO 0.5 mg Q6H PRN Administration ANXIETY Cyanocobalamin 1,000 mcg 07/02/19 10:00 07/03/19 10:11 Vitamin B12 - PO 1,000 mcg DAILY SANDEEP Administration Diltiazem HCl 300 mg 07/02/19 11:00 07/03/19 10:12 Cardizem Cd - PO 300 mg DAILY SANDEEP Administration Famotidine 40 mg 07/02/19 10:00 07/03/19 10:11 Pepcid - PO 40 mg BID SANDEEP Administration Glipizide 5 mg 07/04/19 07:00 Glucotrol Xl - PO DAILY@0700 [facility] Vancomycin HCl 1,000 mg in 250 mls @ 166.667 mls/hr 07/03/19 10:00 07/03/19 10:13 Vancomycin (Pre-Docked) IVPB 166.667 mls/hr BID SANDEEP Administration Protocol Insulin Aspart 1 vial 07/02/19 11:00 07/03/19 06:22 Novolog Vial Sliding Scale - SQ 2 unit TIDAC SANDEEP Administration Protocol Methylprednisolone Sodium Succinate 40 mg 07/03/19 11:30 Solu-Medrol - IVPUSH Q12H SANDEEP Non-Formulary Medication 1 each 07/01/19 23:45 Cyclosporine [Restasis] OS BID SANDEEP Non-Formulary Medication 1 each 07/02/19 10:00 [place]-3s/Dha/Epa/Fish Oil [Fish Oil 1,000 Mg Softgel] PO DAILY SANDEEP Nystatin 500,000 units 07/02/19 00:00 07/03/19 06:22 Nystatin Oral Suspension - PO 500,000 units Q6HPO SANDEEP Administration Roflumilast 500 mcg 07/02/19 10:00 07/03/19 10:25 Daliresp PO 500 mcg DAILY SANDEEP Administration Sodium Chloride 2 spray 07/03/19 11:22 [place] Nasal [place] - NS Q6H PRN NASAL CONGESTION Tiotropium [place] 2 puff 07/02/19 10:00 07/03/19 10:12 Spiriva Respimat IH 2 puff DAILY SANDEEP Administration Laboratory Results - last 24 hr 07/02/19 07/02/19 07/03/19 12:29 17:08 06:20 WBC RBC Hgb Hct MCV MCH MCHC RDW Plt Count MPV Sodium Potassium Chloride Carbon Dioxide Anion Gap BUN Creatinine Est GFR (CKD-EPI)AfAm Est GFR (CKD-EPI)NonAf POC Glucometer 163 128 166 Random Glucose Calcium Magnesium Total Bilirubin AST ALT Alkaline Phosphatase Total Protein Albumin 07/03/19 07/03/19 07:45 07:45 WBC 8.6 RBC 3.57 L Hgb 8.2 L Hct 27.0 L MCV 75.7 L MCH 23.0 L MCHC 30.4 L RDW 20.5 H Plt Count 307 D MPV 8.2 Sodium 142 Potassium 4.7 Chloride 112 H Carbon Dioxide 27 Anion Gap 4 L BUN 17.5 Creatinine 0.5 L Est GFR (CKD-EPI)AfAm 122.78 Est GFR (CKD-EPI)NonAf 105.94 POC Glucometer Random Glucose 175 H Calcium 8.6 Magnesium 2.2 Total Bilirubin 0.3 AST 8 L ALT 16 Alkaline Phosphatase 91 Total Protein 5.5 L Albumin 2.3 L Microbiology 07/02/19 00:20 Urine - Urine Clean Catch Urine Culture - Final NO GROWTH OBTAINED 07/01/19 00:20 Blood - Peripheral Venous Blood Culture - Preliminary NO GROWTH OBTAINED AFTER 24 HOURS, INCUBATION TO CONTINUE FOR 4 DAYS. 07/01/19 00:20 Blood - Peripheral Venous Blood Culture - Preliminary NO GROWTH OBTAINED AFTER 24 HOURS, INCUBATION TO CONTINUE FOR 4 DAYS. S1 S2 RRR Lungs decreased breath sounds Abd-soft, NT right leg-- blister noted on anterior gonzalez with surrounding erythema, warm and tender-- decreased erythema + PLAN IV Vanco ID eval Pulmonary eval noted taper Solumedrol Check labs in AM cultures negative short duration steroids Zithromax every other day for COPD nystatin for thrush Problem List - Problems (1) Hypokalemia Code(s): E87.6 - HYPOKALEMIA (2) Asthma with COPD Code(s): J44.9 - CHRONIC OBSTRUCTIVE PULMONARY DISEASE, UNSPECIFIED; J45.909 - UNSPECIFIED ASTHMA, UNCOMPLICATED (3) Cellulitis of right leg Code(s): L03.115 - CELLULITIS OF RIGHT LOWER LIMB (4) HLD (hyperlipidemia) Code(s): E78.5 - HYPERLIPIDEMIA, UNSPECIFIED (5) HTN (hypertension) Code(s): I10 - ESSENTIAL (PRIMARY) HYPERTENSION Qualifiers: Hypertension type: essential hypertension Qualified Code(s): I10 - Essential (primary) hypertension (6) MRSA (methicillin resistant Staphylococcus aureus) infection Code(s): A49.02 - METHICILLIN RESIS STAPH INFECTION, UNSP SITE (7) Paroxysmal A-fib Code(s): I48.0 - PAROXYSMAL ATRIAL FIBRILLATION
[2019-07-03] MEDS ORDERED: INSULIN (NOVOLOG) ASPART 100 UNITS/ML 10ML VIAL ONE (12:06)
--- NOTE | 2019-07-03 15:21 | PN ---
Progress Note (short form) - Note Progress Note: PULMONARY Denies shortness of breath, cough or wheezing. Vital Signs Period Temp Pulse Resp BP Sys/[place] Pulse Ox Last 24 Hr 98.0 F-98.3 F 98-114 20-22 116-147/61-78 96 Gen: NAD at rest Heart: RRR Lung: scattered wheezes Abd: soft, nontender Ext: no edema CBC, BMP 07/03/19 07:45 07/03/19 07:45 Active Medications Albuterol Sulfate (Ventolin 0.083% Nebulizer Soln -) 1 amp NEB RTID [facility] Last Admin: 07/03/19 14:12 Dose: Not Given Albuterol Sulfate (Ventolin 0.083% Nebulizer Soln -) 1 amp NEB Q4H PRN PRN Reason: SHORT OF BREATH/WHEEZING Amitriptyline HCl (Elavil -) 50 mg PO HS [facility] Last Admin: 07/02/19 23:08 Dose: 50 mg Apixaban (Eliquis -) 5 mg PO BID [facility] Last Admin: 07/03/19 10:11 Dose: 5 mg Artificial Tears (Artificial Tears) 1 drop OU QID PRN PRN Reason: DRY EYES Atorvastatin Calcium (Lipitor -) 10 mg PO HS [facility] Last Admin: 07/02/19 23:09 Dose: 10 mg Azithromycin (Zithromax -) 500 mg PO Q2D [facility] Stop: 07/06/19 10:01 Last Admin: 07/02/19 10:20 Dose: 500 mg Budesonide/Formoterol Fumarate (Symbicort 160/4.5mcg -) 1 puff IH BID [facility] Last Admin: 07/03/19 10:13 Dose: 1 puff Cholecalciferol (Vitamin D3 -) 2,000 unit PO DAILY [facility] Last Admin: 07/03/19 10:11 Dose: 2,000 unit Clonazepam (Klonopin -) 0.5 mg PO Q6H PRN PRN Reason: ANXIETY Last Admin: 07/02/19 23:15 Dose: 0.5 mg Cyanocobalamin (Vitamin B12 -) 1,000 mcg PO DAILY [facility] Last Admin: 07/03/19 10:11 Dose: 1,000 mcg Diltiazem HCl (Cardizem Cd -) 300 mg PO DAILY [facility] Last Admin: 07/03/19 10:12 Dose: 300 mg Famotidine (Pepcid -) 40 mg PO BID [facility] Last Admin: 07/03/19 10:11 Dose: 40 mg Glipizide (Glucotrol Xl -) 5 mg PO DAILY@0700 [facility] Vancomycin HCl (Vancomycin (Pre-Docked)) 1,000 mg in 250 mls @ 166.667 mls/hr IVPB BID [facility]; Protocol Last Admin: 07/03/19 10:13 Dose: 166.667 mls/hr Insulin Aspart (Novolog Vial Sliding Scale -) 1 vial SQ TIDAC [facility]; Protocol Last Admin: 07/03/19 12:11 Dose: 2 unit Methylprednisolone Sodium Succinate (Solu-Medrol -) 40 mg IVPUSH Q12H [facility] Last Admin: 07/03/19 11:58 Dose: Not Given Non-Formulary Medication (Cyclosporine [Restasis]) 1 each OS BID [facility] Non-Formulary Medication ([place]-3s/Dha/Epa/Fish Oil [Fish Oil 1,000 Mg Softgel] ) 1 each PO DAILY [facility] Nystatin (Nystatin Oral Suspension -) 500,000 units PO Q6HPO [facility] Last Admin: 07/03/19 12:11 Dose: 500,000 units Roflumilast (Daliresp) 500 mcg PO DAILY [facility] Last Admin: 07/03/19 10:25 Dose: 500 mcg Sodium Chloride ([place] Nasal [place] -) 2 spray NS Q6H PRN PRN Reason: NASAL CONGESTION Tiotropium [place] (Spiriva Respimat) 2 puff IH DAILY [facility] Last Admin: 07/03/19 10:12 Dose: 2 puff A/P Cellulitis vs Skin Abscess Acute COPD Exacerbation Atrial Fibrillation LV Diastolic Dysfunction h/o DVT DM Anemia - continue antibiotics per ID - may need I&D - taper off steroids - inhaled bronchodilators - glucose control while on systemic steroids - DVT prophylaxis
[2019-07-03] MEDS ORDERED: LEVALBUTEROL HCL 0.31 MG/3 ML VIAL.NEB IH PRN (15:24)
[2019-07-03] MEDS ORDERED: MAG HYDROX/AL HYDROX/SIMETH 30 ML UNIT-DOSE CUP PO PRN (16:24)
[2019-07-03] MEDS: LEVALBUTEROL HCL 0.63 MG/3 ML VIAL.NEB. IH SCH (22:17)
[2019-07-03] MEDS: clonazePAM 0.5 MG TABLET PO PRN (22:27)
[2019-07-03] MEDS: ATORVASTATIN CA 10 MG TABLET (FP) PO SCH (22:27)
[2019-07-03] MEDS: AMITRIPTYLINE HCL 25 MG TABLET (FP) PO SCH (22:27)
[2019-07-04] MEDS: NYSTATIN 500,000 UNITS/5 ML SUSPENSION PO SCH ×4 (00:04→17:00)
[2019-07-04] MEDS: glipiZIDE-XL 5 MG TAB.ER.24 PO SCH (06:16)
[2019-07-04] MEDS: INSULIN SLIDING SCALE (NOVOLOG) 1 VIAL SQ SCH ×3 (06:18→16:30)
[2019-07-04 08:54] LABS: BASO % 0.1 % (0-2.0); HEMATOCRIT 27.9 % (32.4-45.2); HEMOGLOBIN 8.4 GM/dL (10.7-15.3); LYMPH % 6.4 % (8-40); MCH 22.5 pg (25.7-33.7); MEAN CELL VOLUME 74.9 fl (80-96); MEAN PLT VOLUME 7.8 fl (7.5-11.1); MONO % 1.8 % (3.8-10.2); NEUT % 91.7 % (42.8-82.8); PLATELET COUNT 418 K/MM3 (134-434); RBC 3.73 M/mm3 (3.60-5.2); RDW 20.5 % (11.6-15.6); WHITE BLOOD COUNT 11.8 K/mm3 (4.0-10.0)
[2019-07-04 09:24] LABS: ALBUMIN 2.5 g/dl (3.4-5.0); BILIRUBIN,TOTAL 0.4 mg/dL (0.2-1); CALCIUM 8.7 mg/dL (8.5-10.1); CREATININE 0.6 mg/dL (0.55-1.3); MAGNESIUM 2.2 mg/dL (1.8-2.4); POTASSIUM 4.2 mmol/L (3.5-5.1); TOT PROT 5.7 g/dl (6.4-8.2)
[2019-07-04] MEDS: LEVALBUTEROL HCL 0.63 MG/3 ML VIAL.NEB. IH SCH ×3 (09:24→20:40)
[2019-07-04] MEDS: CHOLECALCIFEROL (VIT D3) 1,000 UNIT (25 MCG) TABLET PO SCH (10:47)
[2019-07-04] MEDS: AZITHROMYCIN 250 MG TABLET PO SCH ×2 (10:47→12:49)
[2019-07-04] MEDS: APIXABAN 5 MG TABLET PO SCH ×2 (10:48→21:25)
[2019-07-04] MEDS: VANCOMYCIN 1 GRAM (PRE-DOCKED) 1,000 MG/250 ML BAG IVPB SCH ×2 (10:48→21:27)
[2019-07-04] MEDS: methylPREDNISolone NA SUCC 40 MG/1 ML VIAL IVPUSH SCH (10:49)
[2019-07-04] MEDS: TIOTROPIUM BROMIDE 2.5 MCG (SPIRIVA) RESPIMAT INHALER IH SCH (10:52)
[2019-07-04] MEDS: BUDESONIDE/FORMETEROL FUMARATE 160/4.5 mcg INHALER IH SCH ×2 (10:52→22:08)
[2019-07-04] MEDS: FAMOTIDINE 40 MG TABLET PO SCH ×2 (10:55→21:27)
[2019-07-04] MEDS: CYANOCOBALAMIN 1,000 MCG TABLET (FP) PO SCH (10:55)
[2019-07-04] MEDS: ROFLUMILAST 500 MCG TABLET PO SCH (10:55)
[2019-07-04] MEDS ORDERED: PT OWN MED DRAWER 7, Y5N ONE ×3 (11:02→20:49)
[2019-07-04 11:06] LABS: ANISOCYTOSIS 1+; MACROCYTOSIS 0; PLATELET ESTIMATE NORMAL
--- NOTE | 2019-07-04 12:27 | PN ---
Progress Note (short form) - Note Progress Note: No distress No increased wheezing or SOB decreased pain in leg blister burst this morning Vital Signs - 24 hr 07/03/19 07/03/19 07/03/19 14:00 17:00 20:00 Temperature 98.5 F 98.1 F 98.5 F Pulse Rate 98 H 107 H 105 H Respiratory 20 20 20 Rate Blood Pressure 127/74 121/80 135/83 O2 Sat by Pulse Oximetry (%) 07/03/19 07/04/19 07/04/19 21:00 00:00 05:20 Temperature 98 F 98.0 F Pulse Rate 98 H 93 H Respiratory 20 20 Rate Blood Pressure 129/79 114/63 O2 Sat by Pulse 96 Oximetry (%) 07/04/19 07/04/19 09:00 10:00 Temperature 97.2 F L Pulse Rate 97 H Respiratory 20 Rate Blood Pressure 138/85 O2 Sat by Pulse 96 Oximetry (%) Current Medications Generic Name Dose Route Start Last Admin Trade Name Freq PRN Reason Stop Dose Admin Al Hydroxide/Mg Hydroxide 30 ml 07/03/19 16:24 [place] Oral Suspension - PO Q8H PRN INDIGESTION Amitriptyline HCl 50 mg 07/01/19 23:46 07/03/19 22:27 Elavil - PO 50 mg HS SANDEEP Administration Apixaban 5 mg 07/01/19 23:45 07/04/19 10:48 Eliquis - PO 5 mg BID SANDEEP Administration Artificial Tears 1 drop 07/03/19 11:22 Artificial Tears OU QID PRN DRY EYES Atorvastatin Calcium 10 mg 07/01/19 23:45 07/03/19 22:27 Lipitor - PO 10 mg HS SANDEEP Administration Azithromycin 500 mg 07/02/19 10:00 07/04/19 10:47 Zithromax - PO 07/06/19 10:01 250 mg Q2D SANDEEP Administration Azithromycin 250 mg 07/04/19 12:30 Zithromax - PO Q2D SANDEEP Budesonide/Formoterol Fumarate 1 puff 07/01/19 23:45 07/04/19 10:52 Symbicort 160/4.5mcg - IH 1 puff BID SANDEEP Administration Cholecalciferol 2,000 unit 07/02/19 10:00 07/04/19 10:47 Vitamin D3 - PO 2,000 unit DAILY SANDEEP Administration Clonazepam 0.5 mg 07/02/19 10:41 07/03/19 22:27 Klonopin - PO 0.5 mg Q6H PRN Administration ANXIETY Cyanocobalamin 1,000 mcg 07/02/19 10:00 07/04/19 10:55 Vitamin B12 - PO 1,000 mcg DAILY SANDEEP Administration Diltiazem HCl 300 mg 07/02/19 11:00 07/04/19 10:50 Cardizem Cd - PO 300 mg DAILY SANDEEP Administration Famotidine 40 mg 07/02/19 10:00 07/04/19 10:55 Pepcid - PO 40 mg BID SANDEEP Administration Glipizide 5 mg 07/04/19 07:00 07/04/19 06:16 Glucotrol Xl - PO 5 mg DAILY@0700 SANDEEP Administration Vancomycin HCl 1,000 mg in 250 mls @ 166.667 mls/hr 07/03/19 10:00 07/04/19 10:48 Vancomycin (Pre-Docked) IVPB 166.667 mls/hr BID SANDEEP Administration Protocol Insulin Aspart 1 vial 07/02/19 11:00 07/04/19 11:39 Novolog Vial Sliding Scale - SQ 2 units TIDAC SANDEEP Administration Protocol Levalbuterol HCl 0.63 mg 07/03/19 20:00 07/04/19 09:24 Xopenex IH Not Given RTID SANDEEP Levalbuterol HCl 0.31 mg 07/03/19 15:24 07/04/19 08:30 Xopenex IH 0.31 mg Q8H PRN Administration ASTHMA Methylprednisolone Sodium Succinate 40 mg 07/05/19 10:00 Solu-Medrol - IVPUSH DAILY [facility] Non-Formulary Medication 1 each 07/01/19 23:45 Cyclosporine [Restasis] OS BID SANDEEP Nystatin 500,000 units 07/02/19 00:00 07/04/19 11:44 Nystatin Oral Suspension - PO 500,000 units Q6HPO SANDEEP Administration Roflumilast 500 mcg 07/02/19 10:00 07/04/19 10:55 Daliresp PO 500 mcg DAILY SANDEEP Administration Sodium Chloride 2 spray 07/03/19 11:22 07/03/19 16:23 [place] Nasal [place] - NS 2 spray Q6H PRN Administration NASAL CONGESTION Tiotropium [place] 2 puff 07/02/19 10:00 07/04/19 10:52 Spiriva Respimat IH 2 puff DAILY SANDEEP Administration Laboratory Results - last 24 hr 07/03/19 07/03/19 07/04/19 17:52 20:41 06:03 WBC RBC Hgb Hct MCV MCH MCHC RDW Plt Count MPV Absolute Neuts (auto) Neutrophils % Neutrophils % (Manual) Band Neutrophils % Lymphocytes % Lymphocytes % (Manual) Monocytes % Monocytes % (Manual) Eosinophils % Eosinophils % (Manual) Basophils % Basophils % (Manual) Myelocytes % (Man) Promyelocytes % (Man) Blast Cells % (Manual) Nucleated RBC % Metamyelocytes Hypochromia Platelet Estimate Polychromasia Poikilocytosis Anisocytosis Microcytosis Macrocytosis Mark Cells Fragmented RBCs Sodium Potassium Chloride Carbon Dioxide Anion Gap BUN Creatinine Est GFR (CKD-EPI)AfAm Est GFR (CKD-EPI)NonAf POC Glucometer 163 146 181 Random Glucose Calcium Magnesium Total Bilirubin AST ALT Alkaline Phosphatase Total Protein Albumin 07/04/19 07/04/19 07/04/19 08:35 08:35 11:11 WBC 11.8 H RBC 3.73 Hgb 8.4 L Hct 27.9 L MCV 74.9 L MCH 22.5 L MCHC 30.0 L RDW 20.5 H Plt Count 418 D MPV 7.8 Absolute Neuts (auto) 10.8 H Neutrophils % 91.7 H Neutrophils % (Manual) 90.1 H Band Neutrophils % 0.0 Lymphocytes % 6.4 L D Lymphocytes % (Manual) 7.9 L D Monocytes % 1.8 L Monocytes % (Manual) 2 L Eosinophils % 0.0 D Eosinophils % (Manual) 0.0 Basophils % 0.1 Basophils % (Manual) 0.0 Myelocytes % (Man) 0 D Promyelocytes % (Man) 0 Blast Cells % (Manual) 0 Nucleated RBC % 0 Metamyelocytes 0 Hypochromia 0 Platelet Estimate Normal Polychromasia 1+ Poikilocytosis 1+ Anisocytosis 1+ Microcytosis 1+ Macrocytosis 0 [place] Cells 1+ Fragmented RBCs 1+ Sodium 141 Potassium 4.2 Chloride 108 H Carbon Dioxide 26 Anion Gap 7 L BUN 20.0 H Creatinine 0.6 Est GFR (CKD-EPI)AfAm 115.63 Est GFR (CKD-EPI)NonAf 99.77 POC Glucometer 183 Random Glucose 154 H Calcium 8.7 Magnesium 2.2 Total Bilirubin 0.4 AST 20 ALT 40 Alkaline Phosphatase 91 Total Protein 5.7 L Albumin 2.5 L Microbiology 07/02/19 00:20 Urine - Urine Clean Catch Urine Culture - Final NO GROWTH OBTAINED 07/01/19 00:20 Blood - Peripheral Venous Blood Culture - Preliminary NO GROWTH OBTAINED AFTER 24 HOURS, INCUBATION TO CONTINUE FOR 4 DAYS. 07/01/19 00:20 Blood - Peripheral Venous Blood Culture - Preliminary NO GROWTH OBTAINED AFTER 24 HOURS, INCUBATION TO CONTINUE FOR 4 DAYS. S1 S2 RRR Lungs decreased breath sounds Abd-soft, NT right leg-- wound+ indurated, pus+ , tender PLAN IV Vanco OOB wound care eval taper Solumedrol Zithromax every other day check pre and post ambulatory O2 sat Problem List - Problems (1) Hypokalemia Code(s): E87.6 - HYPOKALEMIA (2) Asthma with COPD Code(s): J44.9 - CHRONIC OBSTRUCTIVE PULMONARY DISEASE, UNSPECIFIED; J45.909 - UNSPECIFIED ASTHMA, UNCOMPLICATED (3) Cellulitis of right leg Code(s): L03.115 - CELLULITIS OF RIGHT LOWER LIMB (4) HLD (hyperlipidemia) Code(s): E78.5 - HYPERLIPIDEMIA, UNSPECIFIED (5) HTN (hypertension) Code(s): I10 - ESSENTIAL (PRIMARY) HYPERTENSION Qualifiers: Hypertension type: essential hypertension Qualified Code(s): I10 - Essential (primary) hypertension (6) MRSA (methicillin resistant Staphylococcus aureus) infection Code(s): A49.02 - METHICILLIN RESIS STAPH INFECTION, UNSP SITE (7) Paroxysmal A-fib Code(s): I48.0 - PAROXYSMAL ATRIAL FIBRILLATION
--- NOTE | 2019-07-04 14:42 | PN ---
Progress Note (short form) - Note Progress Note: PULMONARY Denies shortness of breath, cough or wheezing. Pustular blister ruptured this AM. Vital Signs Period Temp Pulse Resp BP Sys/Jordan Pulse Ox Last 24 Hr 97.2 F-98.5 F 93-109 20-20 114-146/63-85 96-96 Gen: NAD at rest Heart: RRR Lung: decreased breath sounds at the bases Abd: soft, nontender Ext: no edema CBC, BMP 07/04/19 08:35 07/04/19 08:35 Active Medications Al Hydroxide/Mg Hydroxide (Mylanta Oral Suspension -) 30 ml PO Q8H PRN PRN Reason: INDIGESTION Amitriptyline HCl (Elavil -) 50 mg PO HS [facility] Last Admin: 07/03/19 22:27 Dose: 50 mg Apixaban (Eliquis -) 5 mg PO BID [facility] Last Admin: 07/04/19 10:48 Dose: 5 mg Artificial Tears (Artificial Tears) 1 drop OU QID PRN PRN Reason: DRY EYES Atorvastatin Calcium (Lipitor -) 10 mg PO [facility] Last Admin: 07/03/19 22:27 Dose: 10 mg Azithromycin (Zithromax -) 500 mg PO Q2D [facility] Stop: 07/06/19 10:01 Last Admin: 07/04/19 10:47 Dose: 250 mg Azithromycin (Zithromax -) 250 mg PO Q2D [facility] Last Admin: 07/04/19 12:49 Dose: Not Given Budesonide/Formoterol Fumarate (Symbicort 160/4.5mcg -) 1 puff IH BID [facility] Last Admin: 07/04/19 10:52 Dose: 1 puff Cholecalciferol (Vitamin D3 -) 2,000 unit PO DAILY [facility] Last Admin: 07/04/19 10:47 Dose: 2,000 unit Clonazepam (Klonopin -) 0.5 mg PO Q6H PRN PRN Reason: ANXIETY Last Admin: 07/03/19 22:27 Dose: 0.5 mg Cyanocobalamin (Vitamin B12 -) 1,000 mcg PO DAILY [facility] Last Admin: 07/04/19 10:55 Dose: 1,000 mcg Diltiazem HCl (Cardizem Cd -) 300 mg PO DAILY [facility] Last Admin: 07/04/19 10:50 Dose: 300 mg Famotidine (Pepcid -) 40 mg PO BID [facility] Last Admin: 07/04/19 10:55 Dose: 40 mg Glipizide (Glucotrol Xl -) 5 mg PO DAILY@0700 [facility] Last Admin: 07/04/19 06:16 Dose: 5 mg Vancomycin HCl (Vancomycin (Pre-Docked)) 1,000 mg in 250 mls @ 166.667 mls/hr IVPB BID [facility]; Protocol Last Admin: 07/04/19 10:48 Dose: 166.667 mls/hr Insulin Aspart (Novolog Vial Sliding Scale -) 1 vial SQ TIDAC [facility]; Protocol Last Admin: 07/04/19 11:39 Dose: 2 units Levalbuterol HCl (Xopenex) 0.63 mg IH RTID [facility] Last Admin: 07/04/19 09:24 Dose: Not Given Levalbuterol HCl (Xopenex) 0.31 mg IH Q8H PRN PRN Reason: ASTHMA Last Admin: 07/04/19 08:30 Dose: 0.31 mg Methylprednisolone Sodium Succinate (Solu-Medrol -) 40 mg IVPUSH DAILY [facility] Non-Formulary Medication (Cyclosporine [Restasis]) 1 each OS BID [facility] Nystatin (Nystatin Oral Suspension -) 500,000 units PO Q6HPO [facility] Last Admin: 07/04/19 11:44 Dose: 500,000 units Roflumilast (Daliresp) 500 mcg PO DAILY [facility] Last Admin: 07/04/19 10:55 Dose: 500 mcg Sodium Chloride ([place] Nasal [place] -) 2 spray NS Q6H PRN PRN Reason: NASAL CONGESTION Last Admin: 07/03/19 16:23 Dose: 2 spray Tiotropium [place] (Spiriva Respimat) 2 puff IH DAILY [facility] Last Admin: 07/04/19 10:52 Dose: 2 puff A/P Cellulitis vs Skin Abscess Acute COPD Exacerbation Atrial Fibrillation LV Diastolic Dysfunction h/o DVT DM Anemia - antibiotics per ID - taper off steroids - inhaled bronchodilators - glucose control while on systemic steroids - DVT prophylaxis - outpt PFTs
--- NOTE | 2019-07-04 14:57 | CONSULT ---
- Consultation REQUESTING PROVIDER: CONSULT REQUEST: We have been asked to surgically evaluate this patient for right leg wound. PCP:Cristal Ludwig HISTORY OF PRESENT ILLNESS: 59 yo F PMH of MRSA, COPD, HTN, RUE DVT (on Eliquis) , afib, NIDDM, GERD, LV diastolic dysfunction, anemia, presented to the ED with Flu like symptoms. Patient states the symptoms began on Monday with generalized muscle aches and weakness, developed chills on Monday, continued malaise through yesterday. Complains of some mild SOB that feels similar to her COPD. Denies CP, abd pain, N/V, constipation/diarrhea. Patient states she has had little "pimples" on her body before but she never required any intervention or I&D. Past History - Past Medical History Allergies/Adverse Reactions: Allergies Allergy/AdvReac Type Severity Reaction Status Date / Time Penicillins Allergy Hives Verified 06/27/19 16:18 Sulfa (Sulfonamide Allergy Hives Verified 06/27/19 16:18 Antibiotics) [Sulfa(Sulfonamide Antibiotics)] Home Medications: Ambulatory Orders metFORMIN HCL [Glucophage -] 500 mg PO BID@0700,1630 #90 tablet 05/15/18 Apixaban [Eliquis] 5 mg PO BID 05/17/19 Atorvastatin Calcium [Lipitor] 10 mg PO HS 05/17/19 Cholecalciferol (Vitamin D3) [Vitamin D -] 2,000 unit PO DAILY 05/17/19 Cyanocobalamin [Vitamin B12 -] 1,000 mcg PO DAILY 05/17/19 Cyclosporine [Restasis] 1 each OS BID 05/17/19 Diltiazem Cd [Cardizem Cd -] 300 mg PO DAILY 05/17/19 Levalbuterol Tartrate [Xopenex Hfa] 1 puff IH BID PRN 05/17/19 [place]-3S/Dha/Epa/Fish Oil [Fish Oil 1,000 mg Softgel] 1 each PO DAILY 05/17/19 Roflumilast [Daliresp] 500 mcg PO DAILY 05/17/19 Tiotropium [place] [Spiriva] 18 mcg IH DAILY 05/17/19 clonazePAM [Klonopin -] 0.5 mg PO PRN PRN 05/17/19 Amitriptyline HCl [Elavil -] 50 mg PO HS tablet 05/21/19 Azithromycin 250 mg PO Q2D #60 tablet 06/18/19 Budesonide/Formeterol Fumarate [SYMBICORT 160/4.5mcg -] 1 inh PO BID 07/01/19 Famotidine [Pepcid -] 40 mg PO BID 07/01/19 Anemia: No Asthma: Yes Cancer: No Cardiac Disorders: Yes (Tachycardia) CVA: No COPD: Yes CHF: No DVT: No Dementia: No Diabetes: Yes (BORDERLINE) GI Disorders: Yes (GERD) Disorders: No HTN: Yes Hypercholesterolemia: Yes Liver Disease: No Seizures: No Thyroid Disease: Yes (NODULES) - Surgical History Abdominal Surgery: Yes (POLYP REMOVED FROM UTERUS 09/06/13) Appendectomy: No Cardiac Surgery: No Cholecystectomy: No GI Surgery: Yes (umbilical hernia/wound vac) Lung Surgery: No Neurologic Surgery: No Orthopedic Surgery: Yes (BUNION REMOVAL RT FOOT 2013) - Immunization History Immunization Up to Date: Yes - Psycho Social/Smoking Cessation Hx Smoking Status: Yes Smoking History: Never smoked Have you smoked in the past 12 months: No Number of Cigarettes Smoked Daily: 0 If you are a former smoker, when did you quit?: 2012 'Breaking Loose' booklet given: 10/28/13 Hx Alcohol Use: No Drug/Substance Use Hx: No Substance Use Type: None Hx Substance Use Treatment: No - Review of Systems GENERAL/CONSTITUTIONAL: + Chills, generalized malaise, generalized weakness HEAD, EYES, EARS, NOSE AND THROAT: No change in vision. No ear pain or discharge. No sore throat. CARDIOVASCULAR: No chest pain, mild shortness of breath. RESPIRATORY: No cough, mild wheezing, no hemoptysis. GASTROINTESTINAL: No nausea, vomiting, diarrhea or constipation. GENITOURINARY: No dysuria, frequency, or change in urination. MUSCULOSKELETAL: Generalized muscle aches and pains. SKIN: No rash NEUROLOGIC: Headache yesterday which has resolved, no vertigo, loss of consciousness, or change in strength/sensation. ENDOCRINE:+frequent urination. HEMATOLOGIC/LYMPHATIC: No anemia, easy bleeding, or history of blood clots. ALLERGIC/IMMUNOLOGIC: No hives, rashes, lesions or skin allergy *Physical Exam - Vital Signs Last Vital Signs Temp Pulse Resp BP Pulse Ox 98.5 F 124 H 20 110/70 93 L 07/01/19 09:00 07/01/19 09:00 07/01/19 09:00 07/01/19 09:00 07/01/19 09:00 - Physical Exam Gen: well-developed, well-nourished, NAD HEENT: atraumatic, normocephalic, dry mucous membranes, mild oral candidiasis Neck: trachea midline, Pulm: Unlabored resp on RA MSK: moving all extremities without limitation Extr: no edema, no deformities, no rashes or lesions. Right leg anterior gonzalez over distal 3rd with small @ 0.5cm x0.5cm pustule draining with focal erythema- no tracking, small amount of puss expressed with pressure applied at margins. No evidence of collection or active d/c Problem List - Problems (1) Skin pustule Assessment/Plan: Patient with pmhx of MRSA with small pustule of right LE-now open and drained. No evidence of collection or abscess and no indication for surgical intervention. -apply Bacitracin ointment to right LE wound daily and cover with clean dry dressing -ABX per ID -re-consult surgery PRN Code(s): L08.9 - LOCAL INFECTION OF THE SKIN AND SUBCUTANEOUS TISSUE, UNSP
--- NOTE | 2019-07-04 15:36 | PN ---
Progress Note, Physician History of Present Illness: AWAKE, ALERT SUPINE IN BED AFEBRILE NO C/O LEG PAIN PUSTULE ON R CALF RUPTURED - Current Medication List Current Medications: Active Medications Al Hydroxide/Mg Hydroxide (Mylanta Oral Suspension -) 30 ml PO Q8H PRN PRN Reason: INDIGESTION Amitriptyline HCl (Elavil -) 50 mg PO HS [facility] Last Admin: 07/03/19 22:27 Dose: 50 mg Apixaban (Eliquis -) 5 mg PO BID [facility] Last Admin: 07/04/19 10:48 Dose: 5 mg Artificial Tears (Artificial Tears) 1 drop OU QID PRN PRN Reason: DRY EYES Atorvastatin Calcium (Lipitor -) 10 mg PO HS [facility] Last Admin: 07/03/19 22:27 Dose: 10 mg Azithromycin (Zithromax -) 500 mg PO Q2D [facility] Stop: 07/06/19 10:01 Last Admin: 07/04/19 10:47 Dose: 250 mg Azithromycin (Zithromax -) 250 mg PO Q2D [facility] Last Admin: 07/04/19 12:49 Dose: Not Given Bacitracin (Bacitracin -) 1 applic TP DAILY [facility] Budesonide/Formoterol Fumarate (Symbicort 160/4.5mcg -) 1 puff IH BID [facility] Last Admin: 07/04/19 10:52 Dose: 1 puff Cholecalciferol (Vitamin D3 -) 2,000 unit PO DAILY [facility] Last Admin: 07/04/19 10:47 Dose: 2,000 unit Clonazepam (Klonopin -) 0.5 mg PO Q6H PRN PRN Reason: ANXIETY Last Admin: 07/03/19 22:27 Dose: 0.5 mg Cyanocobalamin (Vitamin B12 -) 1,000 mcg PO DAILY [facility] Last Admin: 07/04/19 10:55 Dose: 1,000 mcg Diltiazem HCl (Cardizem Cd -) 300 mg PO DAILY [facility] Last Admin: 07/04/19 10:50 Dose: 300 mg Famotidine (Pepcid -) 40 mg PO BID [facility] Last Admin: 07/04/19 10:55 Dose: 40 mg Glipizide (Glucotrol Xl -) 5 mg PO DAILY@0700 [facility] Last Admin: 07/04/19 06:16 Dose: 5 mg Vancomycin HCl (Vancomycin (Pre-Docked)) 1,000 mg in 250 mls @ 166.667 mls/hr IVPB BID [facility]; Protocol Last Admin: 07/04/19 10:48 Dose: 166.667 mls/hr Insulin Aspart (Novolog Vial Sliding Scale -) 1 vial SQ TIDAC [facility]; Protocol Last Admin: 07/04/19 11:39 Dose: 2 units Levalbuterol HCl (Xopenex) 0.63 mg IH RTID [facility] Last Admin: 07/04/19 14:43 Dose: Not Given Levalbuterol HCl (Xopenex) 0.31 mg IH Q8H PRN PRN Reason: ASTHMA Last Admin: 07/04/19 08:30 Dose: 0.31 mg Methylprednisolone Sodium Succinate (Solu-Medrol -) 40 mg IVPUSH DAILY [facility] Non-Formulary Medication (Cyclosporine [Restasis]) 1 each OS BID [facility] Nystatin (Nystatin Oral Suspension -) 500,000 units PO Q6HPO [facility] Last Admin: 07/04/19 11:44 Dose: 500,000 units Roflumilast (Daliresp) 500 mcg PO DAILY [facility] Last Admin: 07/04/19 10:55 Dose: 500 mcg Sodium Chloride ([place] Nasal [place] -) 2 spray NS Q6H PRN PRN Reason: NASAL CONGESTION Last Admin: 07/03/19 16:23 Dose: 2 spray Tiotropium [place] (Spiriva Respimat) 2 puff IH DAILY [facility] Last Admin: 07/04/19 10:52 Dose: 2 puff - Objective Vital Signs: Vital Signs Temperature 97.6 F 07/04/19 13:43 Pulse Rate 109 H 07/04/19 13:43 Respiratory Rate 20 07/04/19 13:43 Blood Pressure 146/68 07/04/19 13:43 O2 Sat by Pulse Oximetry (%) 96 07/04/19 09:00 Constitutional: Yes: No Distress Eyes: Yes: Conjunctiva Clear Cardiovascular: Yes: Regular Rate and Rhythm, S1, S2 Respiratory: Yes: Rhonchi Gastrointestinal: Yes: Normal Bowel Sounds, Soft. No: Tenderness Extremities: Yes: Other (FAINT AREA OF ERYTHEMA R LATERAL CALF) Edema: No Labs: CBC, BMP 07/04/19 08:35 07/04/19 08:35 Assessment/Plan S/P PUSTULE R CALF CELLULITIS R CALF IMPROVED HX MRSA D/C VANCOMYCIN AFTER TOMORROWS DOSE
[2019-07-04] MEDS: BACITRACIN 15 GM TUBE TOPICAL OINTMENT TP SCH (16:58)
[2019-07-04] MEDS: ATORVASTATIN CA 10 MG TABLET (FP) PO SCH (21:25)
[2019-07-04] MEDS: AMITRIPTYLINE HCL 25 MG TABLET (FP) PO SCH (21:26)
[2019-07-04] MEDS: clonazePAM 0.5 MG TABLET PO PRN (21:36)
[2019-07-05] MEDS: NYSTATIN 500,000 UNITS/5 ML SUSPENSION PO SCH ×5 (06:06→23:58)
[2019-07-05] MEDS: INSULIN SLIDING SCALE (NOVOLOG) 1 VIAL SQ SCH ×3 (06:07→17:24)
[2019-07-05] MEDS: glipiZIDE-XL 5 MG TAB.ER.24 PO SCH (06:07)
[2019-07-05] MEDS: LEVALBUTEROL HCL 0.63 MG/3 ML VIAL.NEB. IH SCH ×3 (08:50→21:00)
[2019-07-05] MEDS ORDERED: PT OWN MED DRAWER 7, Y5N ONE (10:24)
[2019-07-05] MEDS: methylPREDNISolone NA SUCC 40 MG/1 ML VIAL IVPUSH SCH (10:30)
[2019-07-05] MEDS: APIXABAN 5 MG TABLET PO SCH ×2 (10:32→21:51)
[2019-07-05] MEDS: CHOLECALCIFEROL (VIT D3) 1,000 UNIT (25 MCG) TABLET PO SCH (10:32)
[2019-07-05] MEDS: clonazePAM 0.5 MG TABLET PO PRN ×2 (10:32→21:51)
[2019-07-05] MEDS: ROFLUMILAST 500 MCG TABLET PO SCH (10:33)
[2019-07-05] MEDS: CYANOCOBALAMIN 1,000 MCG TABLET (FP) PO SCH (10:33)
[2019-07-05] MEDS: BUDESONIDE/FORMETEROL FUMARATE 160/4.5 mcg INHALER IH SCH ×2 (10:33→22:17)
[2019-07-05] MEDS: FAMOTIDINE 40 MG TABLET PO SCH ×2 (10:33→22:17)
[2019-07-05] MEDS: TIOTROPIUM BROMIDE 2.5 MCG (SPIRIVA) RESPIMAT INHALER IH SCH (10:34)
[2019-07-05] MEDS: BACITRACIN 15 GM TUBE TOPICAL OINTMENT TP SCH (10:35)
[2019-07-05] MEDS: VANCOMYCIN 1 GRAM (PRE-DOCKED) 1,000 MG/250 ML BAG IVPB SCH ×2 (10:48→21:49)
--- NOTE | 2019-07-05 11:41 | PN ---
Progress Note (short form) - Note Progress Note: Pt seen/ examined chart reviewed awake/ comfortable but desaturates quickly-- per Rn dropped to 88 after removing oxygen. Vital Signs Temp 98.1 F 07/05/19 10:57 Pulse 91 H 07/05/19 10:57 Resp 19 07/05/19 10:57 BP 110/62 07/05/19 10:57 Pulse Ox 97 07/04/19 21:00 Intake & Output 07/04/19 07/04/19 07/05/19 11:59 23:59 11:59 Intake Total 750 280 250 Balance 750 280 250 Intake: IVPB 250 250 Oral 500 30 250 Other: Voiding Method Toilet Toilet # Unmeasured Voids Void 2 2 Bowel Movement No Active Medications Al Hydroxide/Mg Hydroxide (Mylanta Oral Suspension -) 30 ml PO Q8H PRN PRN Reason: INDIGESTION Amitriptyline HCl (Elavil -) 50 mg PO HS [facility] Last Admin: 07/04/19 21:26 Dose: 50 mg Apixaban (Eliquis -) 5 mg PO BID [facility] Last Admin: 07/05/19 10:32 Dose: 5 mg Artificial Tears (Artificial Tears) 1 drop OU QID PRN PRN Reason: DRY EYES Atorvastatin Calcium (Lipitor -) 10 mg PO HS [facility] Last Admin: 07/04/19 21:25 Dose: 10 mg Azithromycin (Zithromax -) 500 mg PO Q2D [facility] Stop: 07/06/19 10:01 Last Admin: 07/04/19 10:47 Dose: 250 mg Azithromycin (Zithromax -) 250 mg PO Q2D [facility] Last Admin: 07/04/19 12:49 Dose: Not Given Bacitracin (Bacitracin -) 1 applic TP DAILY [facility] Last Admin: 07/05/19 10:35 Dose: 1 applic Budesonide/Formoterol Fumarate (Symbicort 160/4.5mcg -) 1 puff IH BID [facility] Last Admin: 07/05/19 10:33 Dose: 1 puff Cholecalciferol (Vitamin D3 -) 2,000 unit PO DAILY [facility] Last Admin: 07/05/19 10:32 Dose: 2,000 unit Clonazepam (Klonopin -) 0.5 mg PO Q6H PRN PRN Reason: ANXIETY Last Admin: 07/05/19 10:32 Dose: 0.5 mg Cyanocobalamin (Vitamin B12 -) 1,000 mcg PO DAILY [facility] Last Admin: 07/05/19 10:33 Dose: 1,000 mcg Diltiazem HCl (Cardizem Cd -) 300 mg PO DAILY [facility] Last Admin: 07/05/19 10:33 Dose: 300 mg Famotidine (Pepcid -) 40 mg PO BID [facility] Last Admin: 07/05/19 10:33 Dose: 40 mg Glipizide (Glucotrol Xl -) 5 mg PO DAILY@0700 [facility] Last Admin: 07/05/19 06:07 Dose: 5 mg Vancomycin HCl (Vancomycin (Pre-Docked)) 1,000 mg in 250 mls @ 166.667 mls/hr IVPB BID [facility]; Protocol Last Admin: 07/05/19 10:48 Dose: 166.667 mls/hr Insulin Aspart (Novolog Vial Sliding Scale -) 1 vial SQ TIDAC [facility]; Protocol Last Admin: 07/05/19 06:07 Dose: Not Given Levalbuterol HCl (Xopenex) 0.63 mg IH RTID [facility] Last Admin: 07/05/19 08:50 Dose: 0.63 mg Levalbuterol HCl (Xopenex) 0.31 mg IH Q8H PRN PRN Reason: ASTHMA Last Admin: 07/04/19 08:30 Dose: 0.31 mg Methylprednisolone Sodium Succinate (Solu-Medrol -) 40 mg IVPUSH DAILY [facility] Last Admin: 07/05/19 10:30 Dose: 40 mg Non-Formulary Medication (Cyclosporine [Restasis]) 1 each OS BID [facility] Nystatin (Nystatin Oral Suspension -) 500,000 units PO Q6HPO [facility] Last Admin: 07/05/19 06:06 Dose: 500,000 units Roflumilast (Daliresp) 500 mcg PO DAILY [facility] Last Admin: 07/05/19 10:33 Dose: 500 mcg Sodium Chloride ([place] Nasal [place] -) 2 spray NS Q6H PRN PRN Reason: NASAL CONGESTION Last Admin: 07/03/19 16:23 Dose: 2 spray Tiotropium [place] (Spiriva Respimat) 2 puff IH DAILY [facility] Last Admin: 07/05/19 10:34 Dose: 2 puff CBC, BMP 07/04/19 08:35 07/04/19 08:35 Microbiology 07/01/19 00:20 Blood Culture - Preliminary Blood - Peripheral Venous NO GROWTH OBTAINED AFTER 72 HOURS, INCUBATION TO CONTINUE FOR 2 DAYS. 07/01/19 00:20 Blood Culture - Preliminary Blood - Peripheral Venous NO GROWTH OBTAINED AFTER 72 HOURS, INCUBATION TO CONTINUE FOR 2 DAYS. S1 S2 RRR Lungs decreased breath sounds Abd-soft, NT right leg-- wound+ dressing + PLAN IV Vanco -- last dose today OOB wound care eval taper Solumedrol Zithromax every other day check pre and post ambulatory O2 sat d/c planning will follow Problem List - Problems (1) Hypokalemia Code(s): E87.6 - HYPOKALEMIA (2) Asthma with COPD Code(s): J44.9 - CHRONIC OBSTRUCTIVE PULMONARY DISEASE, UNSPECIFIED; J45.909 - UNSPECIFIED ASTHMA, UNCOMPLICATED (3) Cellulitis of right leg Code(s): L03.115 - CELLULITIS OF RIGHT LOWER LIMB (4) HLD (hyperlipidemia) Code(s): E78.5 - HYPERLIPIDEMIA, UNSPECIFIED (5) HTN (hypertension) Code(s): I10 - ESSENTIAL (PRIMARY) HYPERTENSION Qualifiers: Hypertension type: essential hypertension Qualified Code(s): I10 - Essential (primary) hypertension (6) MRSA (methicillin resistant Staphylococcus aureus) infection Code(s): A49.02 - METHICILLIN RESIS STAPH INFECTION, UNSP SITE (7) Paroxysmal A-fib Code(s): I48.0 - PAROXYSMAL ATRIAL FIBRILLATION
--- NOTE | 2019-07-05 14:12 | PN ---
Progress Note, Physician History of Present Illness: pulmonary alert comfortable,-resp distress - Current Medication List Current Medications: Active Medications Al Hydroxide/Mg Hydroxide (Mylanta Oral Suspension -) 30 ml PO Q8H PRN PRN Reason: INDIGESTION Amitriptyline HCl (Elavil -) 50 mg PO HS [facility] Last Admin: 07/04/19 21:26 Dose: 50 mg Apixaban (Eliquis -) 5 mg PO BID [facility] Last Admin: 07/05/19 10:32 Dose: 5 mg Artificial Tears (Artificial Tears) 1 drop OU QID PRN PRN Reason: DRY EYES Atorvastatin Calcium (Lipitor -) 10 mg PO HS [facility] Last Admin: 07/04/19 21:25 Dose: 10 mg Azithromycin (Zithromax -) 500 mg PO Q2D [facility] Stop: 07/06/19 10:01 Last Admin: 07/04/19 10:47 Dose: 250 mg Azithromycin (Zithromax -) 250 mg PO Q2D [facility] Last Admin: 07/04/19 12:49 Dose: Not Given Bacitracin (Bacitracin -) 1 applic TP DAILY [facility] Last Admin: 07/05/19 10:35 Dose: 1 applic Budesonide/Formoterol Fumarate (Symbicort 160/4.5mcg -) 1 puff IH BID [facility] Last Admin: 07/05/19 10:33 Dose: 1 puff Cholecalciferol (Vitamin D3 -) 2,000 unit PO DAILY [facility] Last Admin: 07/05/19 10:32 Dose: 2,000 unit Clonazepam (Klonopin -) 0.5 mg PO Q6H PRN PRN Reason: ANXIETY Last Admin: 07/05/19 10:32 Dose: 0.5 mg Cyanocobalamin (Vitamin B12 -) 1,000 mcg PO DAILY [facility] Last Admin: 07/05/19 10:33 Dose: 1,000 mcg Diltiazem HCl (Cardizem Cd -) 300 mg PO DAILY [facility] Last Admin: 07/05/19 10:33 Dose: 300 mg Famotidine (Pepcid -) 40 mg PO BID [facility] Last Admin: 07/05/19 10:33 Dose: 40 mg Glipizide (Glucotrol Xl -) 5 mg PO DAILY@0700 [facility] Last Admin: 07/05/19 06:07 Dose: 5 mg Vancomycin HCl (Vancomycin (Pre-Docked)) 1,000 mg in 250 mls @ 166.667 mls/hr IVPB BID [facility]; Protocol Last Admin: 07/05/19 10:48 Dose: 166.667 mls/hr Insulin Aspart (Novolog Vial Sliding Scale -) 1 vial SQ TIDAC [facility]; Protocol Last Admin: 07/05/19 12:08 Dose: Not Given Levalbuterol HCl (Xopenex) 0.63 mg IH RTID [facility] Last Admin: 07/05/19 08:50 Dose: 0.63 mg Levalbuterol HCl (Xopenex) 0.31 mg IH Q8H PRN PRN Reason: ASTHMA Last Admin: 07/04/19 08:30 Dose: 0.31 mg Methylprednisolone Sodium Succinate (Solu-Medrol -) 40 mg IVPUSH DAILY [facility] Last Admin: 07/05/19 10:30 Dose: 40 mg Non-Formulary Medication (Cyclosporine [Restasis]) 1 each OS BID [facility] Nystatin (Nystatin Oral Suspension -) 500,000 units PO Q6HPO [facility] Last Admin: 07/05/19 12:15 Dose: 500,000 units Roflumilast (Daliresp) 500 mcg PO DAILY [facility] Last Admin: 07/05/19 10:33 Dose: 500 mcg Sodium Chloride ([place] Nasal [place] -) 2 spray NS Q6H PRN PRN Reason: NASAL CONGESTION Last Admin: 07/03/19 16:23 Dose: 2 spray Tiotropium [place] (Spiriva Respimat) 2 puff IH DAILY [facility] Last Admin: 07/05/19 10:34 Dose: 2 puff - Objective Vital Signs: Vital Signs Temperature 98.1 F 07/05/19 10:57 Pulse Rate 91 H 07/05/19 10:57 Respiratory Rate 07/05/19 10:57 Blood Pressure 110/62 07/05/19 10:57 O2 Sat by Pulse Oximetry (%) 97 07/04/19 21:00 Constitutional: Yes: Well Nourished, Calm Eyes: Yes: WNL HENT: Yes: WNL Neck: Yes: WNL Cardiovascular: Yes: Regular Rate and Rhythm, S1, S2 Respiratory: Yes: Diminished Gastrointestinal: Yes: Normal Bowel Sounds, Soft Extremities: Yes: WNL Edema: No Labs: CBC, BMP 07/04/19 08:35 07/04/19 08:35 Problem List - Problems (1) Skin pustule Code(s): L08.9 - LOCAL INFECTION OF THE SKIN AND SUBCUTANEOUS TISSUE, UNSP (2) Abscess Code(s): L02.91 - CUTANEOUS ABSCESS, UNSPECIFIED (3) Acute exacerbation of chronic obstructive pulmonary disease (COPD) Code(s): J44.1 - CHRONIC OBSTRUCTIVE PULMONARY DISEASE W (ACUTE) EXACERBATION (4) Anemia Code(s): D64.9 - ANEMIA, UNSPECIFIED Qualifiers: Anemia type: unspecified type Qualified Code(s): D64.9 - Anemia, unspecified (5) Anxiety Code(s): F41.9 - ANXIETY DISORDER, UNSPECIFIED (6) Hypoxia Code(s): R09.02 - HYPOXEMIA (7) Diabetes mellitus Code(s): E11.9 - TYPE 2 DIABETES MELLITUS WITHOUT COMPLICATIONS Assessment/Plan A/P Cellulitis vs Skin Abscess Acute COPD Exacerbation Atrial Fibrillation LV Diastolic Dysfunction h/o DVT DM Anemia - antibiotics per ID - taper off steroids - inhaled bronchodilators - glucose control while on systemic steroids - DVT prophylaxis - outpt PFTs DR COLBERT
[2019-07-05] MEDS: ATORVASTATIN CA 10 MG TABLET (FP) PO SCH (21:51)
[2019-07-05] MEDS: AMITRIPTYLINE HCL 25 MG TABLET (FP) PO SCH (22:17)
[2019-07-06] MEDS: INSULIN SLIDING SCALE (NOVOLOG) 1 VIAL SQ SCH ×3 (06:27→17:22)
[2019-07-06] MEDS: glipiZIDE-XL 5 MG TAB.ER.24 PO SCH (06:27)
[2019-07-06] MEDS: NYSTATIN 500,000 UNITS/5 ML SUSPENSION PO SCH ×3 (06:27→17:22)
[2019-07-06] MEDS: LEVALBUTEROL HCL 0.63 MG/3 ML VIAL.NEB. IH SCH ×3 (08:14→19:40)
[2019-07-06] MEDS ORDERED: PT OWN MED DRAWER 7, Y5N ONE ×2 (09:19→10:28)
[2019-07-06] MEDS: FAMOTIDINE 40 MG TABLET PO SCH ×2 (09:26→21:26)
[2019-07-06] MEDS: CYANOCOBALAMIN 1,000 MCG TABLET (FP) PO SCH (09:26)
[2019-07-06] MEDS: ROFLUMILAST 500 MCG TABLET PO SCH (09:26)
[2019-07-06] MEDS: methylPREDNISolone NA SUCC 40 MG/1 ML VIAL IVPUSH SCH (09:26)
[2019-07-06] MEDS: CHOLECALCIFEROL (VIT D3) 1,000 UNIT (25 MCG) TABLET PO SCH (09:27)
[2019-07-06] MEDS: APIXABAN 5 MG TABLET PO SCH ×2 (09:27→21:26)
[2019-07-06] MEDS: AZITHROMYCIN 250 MG TABLET PO SCH ×2 (09:28)
[2019-07-06] MEDS: TIOTROPIUM BROMIDE 2.5 MCG (SPIRIVA) RESPIMAT INHALER IH SCH (09:37)
[2019-07-06] MEDS: BUDESONIDE/FORMETEROL FUMARATE 160/4.5 mcg INHALER IH SCH ×2 (09:37→21:26)
[2019-07-06] MEDS: BACITRACIN 15 GM TUBE TOPICAL OINTMENT TP SCH (09:41)
[2019-07-06] MEDS: VANCOMYCIN 1 GRAM (PRE-DOCKED) 1,000 MG/250 ML BAG IVPB SCH ×2 (10:40→21:26)
--- NOTE | 2019-07-06 12:50 | PN ---
Progress Note, Physician History of Present Illness: pulmonary alert,+ mild sob,+ mild hypoxemia at rest - Current Medication List Current Medications: Active Medications Al Hydroxide/Mg Hydroxide (Mylanta Oral Suspension -) 30 ml PO Q8H PRN PRN Reason: INDIGESTION Amitriptyline HCl (Elavil -) 50 mg PO HS [facility] Last Admin: 07/05/19 22:17 Dose: 50 mg Apixaban (Eliquis -) 5 mg PO BID [facility] Last Admin: 07/06/19 09:27 Dose: 5 mg Artificial Tears (Artificial Tears) 1 drop OU QID PRN PRN Reason: DRY EYES Atorvastatin Calcium (Lipitor -) 10 mg PO HS [facility] Last Admin: 07/05/19 21:51 Dose: 10 mg Azithromycin (Zithromax -) 250 mg PO Q2D [facility] Last Admin: 07/06/19 09:28 Dose: 250 mg Bacitracin (Bacitracin -) 1 applic TP DAILY [facility] Last Admin: 07/06/19 09:41 Dose: 1 applic Budesonide/Formoterol Fumarate (Symbicort 160/4.5mcg -) 1 puff IH BID [facility] Last Admin: 07/06/19 09:37 Dose: 1 puff Cholecalciferol (Vitamin D3 -) 2,000 unit PO DAILY [facility] Last Admin: 07/06/19 09:27 Dose: 2,000 unit Clonazepam (Klonopin -) 0.5 mg PO Q6H PRN PRN Reason: ANXIETY Last Admin: 07/05/19 21:51 Dose: 0.5 mg Cyanocobalamin (Vitamin B12 -) 1,000 mcg PO DAILY [facility] Last Admin: 07/06/19 09:26 Dose: 1,000 mcg Diltiazem HCl (Cardizem Cd -) 300 mg PO DAILY [facility] Last Admin: 07/06/19 09:26 Dose: 300 mg Famotidine (Pepcid -) 40 mg PO BID [facility] Last Admin: 07/06/19 09:26 Dose: 40 mg Glipizide (Glucotrol Xl -) 5 mg PO DAILY@0700 [facility] Last Admin: 07/06/19 06:27 Dose: 5 mg Vancomycin HCl (Vancomycin (Pre-Docked)) 1,000 mg in 250 mls @ 166.667 mls/hr IVPB BID [facility]; Protocol Last Admin: 07/06/19 10:40 Dose: 166.667 mls/hr Insulin Aspart (Novolog Vial Sliding Scale -) 1 vial SQ TIDAC [facility]; Protocol Last Admin: 07/06/19 12:15 Dose: Not Given Levalbuterol HCl (Xopenex) 0.63 mg IH RTID [facility] Last Admin: 07/06/19 08:14 Dose: Not Given Levalbuterol HCl (Xopenex) 0.31 mg IH Q8H PRN PRN Reason: ASTHMA Last Admin: 07/04/19 08:30 Dose: 0.31 mg Methylprednisolone Sodium Succinate (Solu-Medrol -) 40 mg IVPUSH DAILY [facility] Last Admin: 07/06/19 09:26 Dose: 40 mg Non-Formulary Medication (Cyclosporine [Restasis]) 1 each OS BID [facility] Nystatin (Nystatin Oral Suspension -) 500,000 units PO Q6HPO [facility] Last Admin: 07/06/19 12:26 Dose: 500,000 units Roflumilast (Daliresp) 500 mcg PO DAILY [facility] Last Admin: 07/06/19 09:26 Dose: 500 mcg Sodium Chloride ([place] Nasal [place] -) 2 spray NS Q6H PRN PRN Reason: NASAL CONGESTION Last Admin: 07/03/19 16:23 Dose: 2 spray Tiotropium [place] (Spiriva Respimat) 2 puff IH DAILY [facility] Last Admin: 07/06/19 09:37 Dose: 2 puff - Objective Vital Signs: Vital Signs Temperature 98.5 F 07/06/19 10:00 Pulse Rate 98 H 07/06/19 10:00 Respiratory Rate 18 07/06/19 10:00 Blood Pressure 117/70 07/06/19 10:00 O2 Sat by Pulse Oximetry (%) 97 07/06/19 09:00 Constitutional: Yes: Well Nourished, Calm Eyes: Yes: WNL HENT: Yes: WNL Neck: Yes: WNL Cardiovascular: Yes: Pulse Irregular, S1, S2 Respiratory: Yes: Rhonchi (few rhonchi) Gastrointestinal: Yes: Normal Bowel Sounds, Soft Extremities: Yes: WNL Edema: No Labs: CBC, BMP 07/04/19 08:35 07/04/19 08:35 Problem List - Problems (1) Skin pustule Code(s): L08.9 - LOCAL INFECTION OF THE SKIN AND SUBCUTANEOUS TISSUE, UNSP (2) Abscess Code(s): L02.91 - CUTANEOUS ABSCESS, UNSPECIFIED (3) Acute exacerbation of chronic obstructive pulmonary disease (COPD) Code(s): J44.1 - CHRONIC OBSTRUCTIVE PULMONARY DISEASE W (ACUTE) EXACERBATION (4) Anemia Code(s): D64.9 - ANEMIA, UNSPECIFIED Qualifiers: Anemia type: unspecified type Qualified Code(s): D64.9 - Anemia, unspecified (5) Anxiety Code(s): F41.9 - ANXIETY DISORDER, UNSPECIFIED (6) Hypoxia Code(s): R09.02 - HYPOXEMIA (7) Diabetes mellitus Code(s): E11.9 - TYPE 2 DIABETES MELLITUS WITHOUT COMPLICATIONS Assessment/Plan A/P Cellulitis vs Skin Abscess Acute COPD Exacerbation Atrial Fibrillation LV Diastolic Dysfunction h/o DVT DM Anemia - antibiotics per ID - continue medrol - inhaled bronchodilators - glucose control while on systemic steroids - DVT prophylaxis - outpt PFTs - ambulatory o2 sat on ra - incentive spirometer DR COLBERT
--- NOTE | 2019-07-06 14:47 | PN ---
Progress Note (short form) - Note Progress Note: PT SEEN/ EXAMINED. Condition same Pulmonary f/u noted Vital Signs Temp 98.5 F 07/06/19 10:00 Pulse 98 H 07/06/19 10:00 Resp 18 07/06/19 10:00 BP 117/70 07/06/19 10:00 Pulse Ox 97 07/06/19 09:00 Intake & Output 07/05/19 07/06/19 07/06/19 23:59 11:59 23:59 Intake Total 550 600 Balance 550 600 Intake: IVPB 250 250 Oral 300 350 Other: Voiding Method Toilet Toilet # Unmeasured Voids Void 2 Bowel Movement No Active Medications Al Hydroxide/Mg Hydroxide (Mylanta Oral Suspension -) 30 ml PO Q8H PRN PRN Reason: INDIGESTION Amitriptyline HCl (Elavil -) 50 mg PO HS [facility] Last Admin: 07/05/19 22:17 Dose: 50 mg Apixaban (Eliquis -) 5 mg PO BID [facility] Last Admin: 07/06/19 09:27 Dose: 5 mg Artificial Tears (Artificial Tears) 1 drop OU QID PRN PRN Reason: DRY EYES Atorvastatin Calcium (Lipitor -) 10 mg PO HS [facility] Last Admin: 07/05/19 21:51 Dose: 10 mg Azithromycin (Zithromax -) 250 mg PO Q2D [facility] Last Admin: 07/06/19 09:28 Dose: 250 mg Bacitracin (Bacitracin -) 1 applic TP DAILY [facility] Last Admin: 07/06/19 09:41 Dose: 1 applic Budesonide/Formoterol Fumarate (Symbicort 160/4.5mcg -) 1 puff IH BID [facility] Last Admin: 07/06/19 09:37 Dose: 1 puff Cholecalciferol (Vitamin D3 -) 2,000 unit PO DAILY [facility] Last Admin: 07/06/19 09:27 Dose: 2,000 unit Clonazepam (Klonopin -) 0.5 mg PO Q6H PRN PRN Reason: ANXIETY Last Admin: 07/05/19 21:51 Dose: 0.5 mg Cyanocobalamin (Vitamin B12 -) 1,000 mcg PO DAILY [facility] Last Admin: 07/06/19 09:26 Dose: 1,000 mcg Diltiazem HCl (Cardizem Cd -) 300 mg PO DAILY [facility] Last Admin: 07/06/19 09:26 Dose: 300 mg Famotidine (Pepcid -) 40 mg PO BID [facility] Last Admin: 07/06/19 09:26 Dose: 40 mg Glipizide (Glucotrol Xl -) 5 mg PO DAILY@0700 [facility] Last Admin: 07/06/19 06:27 Dose: 5 mg Vancomycin HCl (Vancomycin (Pre-Docked)) 1,000 mg in 250 mls @ 166.667 mls/hr IVPB BID [facility]; Protocol Last Admin: 07/06/19 10:40 Dose: 166.667 mls/hr Insulin Aspart (Novolog Vial Sliding Scale -) 1 vial SQ TIDAC [facility]; Protocol Last Admin: 07/06/19 12:15 Dose: Not Given Levalbuterol HCl (Xopenex) 0.63 mg IH RTID [facility] Last Admin: 07/06/19 14:10 Dose: 0.63 mg Levalbuterol HCl (Xopenex) 0.31 mg IH Q8H PRN PRN Reason: ASTHMA Last Admin: 07/04/19 08:30 Dose: 0.31 mg Methylprednisolone Sodium Succinate (Solu-Medrol -) 40 mg IVPUSH DAILY [facility] Last Admin: 07/06/19 09:26 Dose: 40 mg Non-Formulary Medication (Cyclosporine [Restasis]) 1 each OS BID [facility] Nystatin (Nystatin Oral Suspension -) 500,000 units PO Q6HPO [facility] Last Admin: 07/06/19 12:26 Dose: 500,000 units Roflumilast (Daliresp) 500 mcg PO DAILY [facility] Last Admin: 07/06/19 09:26 Dose: 500 mcg Sodium Chloride ([place] Nasal [place] -) 2 spray NS Q6H PRN PRN Reason: NASAL CONGESTION Last Admin: 07/03/19 16:23 Dose: 2 spray Tiotropium [place] (Spiriva Respimat) 2 puff IH DAILY [facility] Last Admin: 07/06/19 09:37 Dose: 2 puff CBC, BMP 07/04/19 08:35 07/04/19 08:35 Microbiology 07/01/19 00:20 Blood Culture - Preliminary Blood - Peripheral Venous NO GROWTH OBTAINED AFTER 96 HOURS, INCUBATION TO CONTINUE FOR 1 DAYS. 07/01/19 00:20 Blood Culture - Preliminary Blood - Peripheral Venous NO GROWTH OBTAINED AFTER 96 HOURS, INCUBATION TO CONTINUE FOR 1 DAYS. Physical Exam S1 S2 RRR Lungs decreased breath sounds Abd-soft, NT right leg-- wound+ dressing + PLAN IV Vanco -- finished OOB wound care eval taper Solumedrol Zithromax every other day check pre and post ambulatory O2 sat d/c planning will follow Problem List - Problems (1) Hypokalemia Code(s): E87.6 - HYPOKALEMIA (2) Asthma with COPD Code(s): J44.9 - CHRONIC OBSTRUCTIVE PULMONARY DISEASE, UNSPECIFIED; J45.909 - UNSPECIFIED ASTHMA, UNCOMPLICATED (3) Cellulitis of right leg Code(s): L03.115 - CELLULITIS OF RIGHT LOWER LIMB (4) HLD (hyperlipidemia) Code(s): E78.5 - HYPERLIPIDEMIA, UNSPECIFIED (5) HTN (hypertension) Code(s): I10 - ESSENTIAL (PRIMARY) HYPERTENSION Qualifiers: Hypertension type: essential hypertension Qualified Code(s): I10 - Essential (primary) hypertension (6) MRSA (methicillin resistant Staphylococcus aureus) infection Code(s): A49.02 - METHICILLIN RESIS STAPH INFECTION, UNSP SITE (7) Paroxysmal A-fib Code(s): I48.0 - PAROXYSMAL ATRIAL FIBRILLATION
[2019-07-06] MEDS ORDERED: INSULIN (NOVOLOG) ASPART 100 UNITS/ML 10ML VIAL ONE (17:26)
[2019-07-06 21:16] VITALS: TEMP 97.6
[2019-07-06] MEDS: AMITRIPTYLINE HCL 25 MG TABLET (FP) PO SCH (21:25)
[2019-07-06] MEDS: clonazePAM 0.5 MG TABLET PO PRN (21:26)
[2019-07-06] MEDS: ATORVASTATIN CA 10 MG TABLET (FP) PO SCH (21:26)
[2019-07-07] MEDS: NYSTATIN 500,000 UNITS/5 ML SUSPENSION PO SCH ×3 (00:12→12:40)
[2019-07-07] MEDS: INSULIN SLIDING SCALE (NOVOLOG) 1 VIAL SQ SCH ×2 (06:06→12:40)
[2019-07-07] MEDS: glipiZIDE-XL 5 MG TAB.ER.24 PO SCH (06:06)
[2019-07-07] MEDS: LEVALBUTEROL HCL 0.63 MG/3 ML VIAL.NEB. IH SCH (07:15)
[2019-07-07] MEDS ORDERED: PT OWN MED DRAWER 7, Y5N ONE ×2 (10:45→11:10)
[2019-07-07] MEDS: CHOLECALCIFEROL (VIT D3) 1,000 UNIT (25 MCG) TABLET PO SCH (10:54)
[2019-07-07] MEDS: APIXABAN 5 MG TABLET PO SCH (10:54)
[2019-07-07] MEDS: ROFLUMILAST 500 MCG TABLET PO SCH (10:55)
[2019-07-07] MEDS: FAMOTIDINE 40 MG TABLET PO SCH (10:55)
[2019-07-07] MEDS: BACITRACIN 15 GM TUBE TOPICAL OINTMENT TP SCH (10:55)
[2019-07-07] MEDS: methylPREDNISolone NA SUCC 40 MG/1 ML VIAL IVPUSH SCH (10:56)
[2019-07-07] MEDS: CYANOCOBALAMIN 1,000 MCG TABLET (FP) PO SCH (10:56)
[2019-07-07] MEDS: TIOTROPIUM BROMIDE 2.5 MCG (SPIRIVA) RESPIMAT INHALER IH SCH (10:58)
[2019-07-07] MEDS: BUDESONIDE/FORMETEROL FUMARATE 160/4.5 mcg INHALER IH SCH (10:58)
[2019-07-07 11:12] VITALS: BP 107/72; PULSE 111
[2019-07-07] MEDS ORDERED: predniSONE 20 MG TABLET (UD) PO SCH (11:45)
--- NOTE | 2019-07-07 12:21 | PN ---
Progress Note, Physician History of Present Illness: pulmonary alert,feeling better,clinically improved,02 sat 90% on ra - Current Medication List Current Medications: Active Medications Al Hydroxide/Mg Hydroxide (Mylanta Oral Suspension -) 30 ml PO Q8H PRN PRN Reason: INDIGESTION Amitriptyline HCl (Elavil -) 50 mg PO HS [facility] Last Admin: 07/06/19 21:25 Dose: 50 mg Apixaban (Eliquis -) 5 mg PO BID [facility] Last Admin: 07/07/19 10:54 Dose: 5 mg Artificial Tears (Artificial Tears) 1 drop OU QID PRN PRN Reason: DRY EYES Atorvastatin Calcium (Lipitor -) 10 mg PO HS [facility] Last Admin: 07/06/19 21:26 Dose: 10 mg Azithromycin (Zithromax -) 250 mg PO Q2D [facility] Last Admin: 07/06/19 09:28 Dose: 250 mg Bacitracin (Bacitracin -) 1 applic TP DAILY [facility] Last Admin: 07/07/19 10:55 Dose: 1 applic Budesonide/Formoterol Fumarate (Symbicort 160/4.5mcg -) 1 puff IH BID [facility] Last Admin: 07/07/19 10:58 Dose: 1 puff Cholecalciferol (Vitamin D3 -) 2,000 unit PO DAILY [facility] Last Admin: 07/07/19 10:54 Dose: 2,000 unit Clonazepam (Klonopin -) 0.5 mg PO Q6H PRN PRN Reason: ANXIETY Last Admin: 07/06/19 21:26 Dose: 0.5 mg Cyanocobalamin (Vitamin B12 -) 1,000 mcg PO DAILY [facility] Last Admin: 07/07/19 10:56 Dose: 1,000 mcg Diltiazem HCl (Cardizem Cd -) 300 mg PO DAILY [facility] Last Admin: 07/07/19 10:54 Dose: 300 mg Famotidine (Pepcid -) 40 mg PO BID [facility] Last Admin: 07/07/19 10:55 Dose: 40 mg Glipizide (Glucotrol Xl -) 5 mg PO DAILY@0700 [facility] Last Admin: 07/07/19 06:06 Dose: 5 mg Insulin Aspart (Novolog Vial Sliding Scale -) 1 vial SQ TIDAC [facility]; Protocol Last Admin: 07/07/19 06:06 Dose: Not Given Levalbuterol HCl (Xopenex) 0.63 mg IH RTID [facility] Last Admin: 07/07/19 07:15 Dose: 0.63 mg Levalbuterol HCl (Xopenex) 0.31 mg IH Q8H PRN PRN Reason: ASTHMA Last Admin: 07/04/19 08:30 Dose: 0.31 mg Non-Formulary Medication (Cyclosporine [Restasis]) 1 each OS BID [facility] Nystatin (Nystatin Oral Suspension -) 500,000 units PO Q6HPO [facility] Last Admin: 07/07/19 06:06 Dose: 500,000 units Prednisone (Deltasone -) 40 mg PO DAILY [facility] Roflumilast (Daliresp) 500 mcg PO DAILY [facility] Last Admin: 07/07/19 10:55 Dose: 500 mcg Sodium Chloride ([place] Nasal [place] -) 2 spray NS Q6H PRN PRN Reason: NASAL CONGESTION Last Admin: 07/03/19 16:23 Dose: 2 spray Tiotropium [place] (Spiriva Respimat) 2 puff IH DAILY [facility] Last Admin: 07/07/19 10:58 Dose: 2 puff - Objective Vital Signs: Vital Signs Temperature 97.6 F 07/07/19 10:00 Pulse Rate 111 H 07/07/19 10:00 Respiratory Rate 20 07/07/19 10:00 Blood Pressure 107/72 07/07/19 10:00 O2 Sat by Pulse Oximetry (%) 95 07/07/19 09:00 Constitutional: Yes: Well Nourished, Calm Eyes: Yes: WNL HENT: Yes: WNL Neck: Yes: WNL Cardiovascular: Yes: Regular Rate and Rhythm, S1, S2 Respiratory: Yes: Rales (few crackles left base) Gastrointestinal: Yes: Normal Bowel Sounds, Soft Extremities: Yes: WNL Peripheral Pulses WNL: No Labs: CBC, BMP 07/04/19 08:35 07/04/19 08:35 Problem List - Problems (1) Skin pustule Code(s): L08.9 - LOCAL INFECTION OF THE SKIN AND SUBCUTANEOUS TISSUE, UNSP (2) Abscess Code(s): L02.91 - CUTANEOUS ABSCESS, UNSPECIFIED (3) Acute exacerbation of chronic obstructive pulmonary disease (COPD) Code(s): J44.1 - CHRONIC OBSTRUCTIVE PULMONARY DISEASE W (ACUTE) EXACERBATION (4) Anemia Code(s): D64.9 - ANEMIA, UNSPECIFIED Qualifiers: Anemia type: unspecified type Qualified Code(s): D64.9 - Anemia, unspecified (5) Anxiety Code(s): F41.9 - ANXIETY DISORDER, UNSPECIFIED (6) Hypoxia Code(s): R09.02 - HYPOXEMIA (7) Diabetes mellitus Code(s): E11.9 - TYPE 2 DIABETES MELLITUS WITHOUT COMPLICATIONS Assessment/Plan A/P Cellulitis vs Skin Abscess Acute COPD Exacerbation Atrial Fibrillation LV Diastolic Dysfunction h/o DVT DM Anemia - antibiotics per ID - prednisone - inhaled bronchodilators - glucose control while on systemic steroids - DVT prophylaxis - outpt PFTs - ambulatory o2 sat on ra - incentive spirometer DR COLBERT
--- NOTE | 2019-07-07 12:36 | DS ---
Physical Examination Vital Signs: Vital Signs Temperature 97.6 F 07/07/19 10:00 Pulse Rate 111 H 07/07/19 10:00 Respiratory Rate 20 07/07/19 10:00 Blood Pressure 107/72 07/07/19 10:00 O2 Sat by Pulse Oximetry (%) 95 07/07/19 09:00 Findings/Remarks: feels better sat better no complains Constitutional: Yes: No Distress, Calm Eyes: Yes: Conjunctiva Clear Neck: Yes: Supple Respiratory: Yes: CTA Bilaterally, Other (fine crackles at bases) Gastrointestinal: Yes: Soft Edema: No Neurological: Yes: Alert Psychiatric: Yes: Alert Labs: CBC, BMP 07/04/19 08:35 07/04/19 08:35 Discharge Summary Problems reviewed: Yes Reason For Visit: SHORTNESS OF BREATH,TACHYPNEA,HYPOXIA Current Active Problems Acute and chronic respiratory failure with hypoxia (Acute) Hypokalemia (Acute) Hypomagnesemia (Acute) Hypoxia (Acute) Skin pustule (Acute) Hospital Course: admitted for copd exac also cellulitis of leg 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 Pacheco also meds reconcilled metfomin changed to glucotrol -- Dont want metformin Monitor d/c home f.u in office next week advised Condition: Stable - Instructions Referrals: Cristal Ludwig MD [Primary Care Provider] - Disposition: HOME - Home Medications Comprehensive Discharge Medication List: Ambulatory Orders Apixaban [Eliquis] 5 mg PO BID 05/17/19 Atorvastatin Calcium [Lipitor] 10 mg PO HS 05/17/19 Cholecalciferol (Vitamin D3) [Vitamin D -] 2,000 unit PO DAILY 05/17/19 Cyanocobalamin [Vitamin B12 -] 1,000 mcg PO DAILY 05/17/19 Cyclosporine [Restasis] 1 each OS BID 05/17/19 Diltiazem Cd [Cardizem Cd -] 300 mg PO DAILY 05/17/19 Levalbuterol Tartrate [Xopenex Hfa] 1 puff IH BID PRN 05/17/19 [place]-3S/Dha/Epa/Fish Oil [Fish Oil 1,000 mg Softgel] 1 each PO DAILY 05/17/19 Roflumilast [Daliresp] 500 mcg PO DAILY 05/17/19 Tiotropium [place] [Spiriva] 18 mcg IH DAILY 05/17/19 clonazePAM [Klonopin -] 0.5 mg PO PRN PRN 05/17/19 Amitriptyline HCl [Elavil -] 50 mg PO HS tablet 05/21/19 Azithromycin 250 mg PO Q2D #60 tablet 06/18/19 Budesonide/Formeterol Fumarate [SYMBICORT 160/4.5mcg -] 1 inh PO BID 07/01/19 Famotidine [Pepcid -] 40 mg PO BID 07/01/19 Glipizide Xl [Glucotrol Xl -] 5 mg PO DAILY@0700 30 Days #30 tab.er.24 07/07/19 Levalbuterol HCl [Xopenex] 0.63 mg IH RTID vial.neb. 07/07/19 Mag Hydrox/Al Hydrox/Simeth [Mylanta Oral Suspension -] 30 ml PO Q8H PRN cup Nystatin Oral Suspension - [Nystatin Oral Susp 832943 Units/5 ML -] 500,000 units PO Q6HPO PRN 10 Days #1 cup 07/07/19 predniSONE [Deltasone -] 40 mg PO DAILY #30 tablet 07/07/19
--- NOTE | 2019-07-12 09:03 | CONS ---
DATE OF CONSULTATION: DATE OF DICTATION: 07/03/2019 INFECTIOUS DISEASE CONSULTATION HISTORY OF PRESENT ILLNESS: The patient is a 59-year-old female with a history of COPD and recurrent MRSA soft tissue infections, now evaluated for cellulitis of the right lower extremity. She was admitted to the hospital on July 01, 2019, with complaints of generalized weakness and malaise. She was diagnosed with possible viral syndrome and acute exacerbation of COPD. Her course was complicated by an elevated white blood cell count. She now has noted a pustule on the right thigh area, approximately 1 cm in diameter, surrounded by erythema. She has had multiple histories of MRSA soft tissue infections. She denies any associated fever or chills. She denies any traumatic injury. PAST MEDICAL HISTORY: Positive for COPD, congestive heart failure, [id number] diabetes mellitus, gastroesophageal reflux, hypertension, history of recurrent MRSA soft tissue infections. She also has a history of pulmonary embolism, hyperlipidemia, atrial fibrillation, right upper extremity DVT, remote history of MRSA bacteremia. ALLERGIES: PENICILLIN AND SULFA. MEDICATIONS: At the present time include Elavil, Eliquis, Lipitor, Zithromax, Klonopin, Cardizem, Glucotrol, Xopenex. SOCIAL HISTORY: She resides at home in the community. No active tobacco or alcohol use. REVIEW OF SYSTEMS: Neurologic: No loss of consciousness, seizure activity, focal weakness. Cardiac: Negative for chest pain or palpitations. Respiratory: As per HPI. Gastrointestinal: Negative for vomiting or diarrhea. Genitourinary: Negative for urinary tract infection. LABORATORY DATA: White count Jasson CHATTERJEE/[id number]
== END 2019-07-07 13:36 | disposition home or self-care (01) | DRG 189 ==
LOC: JER 08:52 → JERBED 16:20 → J8W 07-02 04:56 → J6S 07-03 23:28
PROVIDERS: ADMIT Internal Medicine; ATTEND Internal Medicine
DX: J96.21 Acute and chronic respiratory failure with hypoxia (principal); J98.11 Atelectasis; L03.115 Cellulitis of right lower limb; J43.9 Emphysema, unspecified; K21.9 Gastro-esophageal reflux disease without esophagitis; E11.9 Type 2 diabetes mellitus without complications; I11.0 Hypertensive heart disease with heart failure; I50.9 Heart failure, unspecified; Z88.0 Allergy status to penicillin; D64.9 Anemia, unspecified; E87.6 Hypokalemia; E83.42 Hypomagnesemia; E04.1 Nontoxic single thyroid nodule; I48.0 Paroxysmal atrial fibrillation; Z79.01 Long term (current) use of anticoagulants; Z79.84 Long term (current) use of oral hypoglycemic drugs; E78.00 Pure hypercholesterolemia, unspecified; Z86.718 Personal history of other venous thrombosis and embolism; F41.9 Anxiety disorder, unspecified
CPT/HCPCS: 36415; 71045-TC-FY; 71260-TC; 80048; 80053; 81003; 82550; 82803; 82962; 83605; 83690; 83735; 83880; 84100; 84443; 84484; 85025; 85027; 85610; 85730; 87040; 87086; 87804; 93005; 93010; 94010; 94640; 94761; 99284-25; 99285-25; J0131; J7030

== ENCOUNTER 2019-07-11 13:15 | Inpatient (IN) | payer OTHER, BC ==
--- NOTE | 2019-07-11 13:24 | PDOC ---
Rapid Medical Evaluation Chief Complaint: Wound Time Seen by Provider: 07/11/19 13:20 Medical Evaluation: Allergies Allergy/AdvReac Type Severity Reaction Status Date / Time Penicillins Allergy Hives Verified 07/11/19 13:21 Sulfa (Sulfonamide Allergy Hives Verified 07/11/19 13:21 Antibiotics) [Sulfa(Sulfonamide Antibiotics)] Vital Signs Temp Pulse Resp BP Pulse Ox 97.9 F 100 H 18 120/70 97 07/11/19 13:18 07/11/19 13:18 07/11/19 13:18 07/11/19 13:18 07/11/19 13:18 07/11/19 13:23 I have performed a brief in-person evaluation of this patient. The patient presents with a chief complaint of: leg infection Pertinent physical exam findings:stable and in NAD, non-focal I have ordered the following:labs The patient will proceed to the ED for further evaluation.
[2019-07-11 14:11] LABS: BASO % 0.2 % (0-2.0); HEMATOCRIT 29.7 % (32.4-45.2); HEMOGLOBIN 8.8 GM/dL (10.7-15.3); LYMPH % 4.9 % (8-40); MCH 22.5 pg (25.7-33.7); MCHC 29.6 g/dl (32.0-36.0); MEAN CELL VOLUME 75.9 fl (80-96); MONO % 2.7 % (3.8-10.2); NEUT % 92.2 % (42.8-82.8); PLATELET COUNT 538 K/MM3 (134-434); RBC 3.92 M/mm3 (3.60-5.2); RDW 20.9 % (11.6-15.6); WHITE BLOOD COUNT 17.6 K/mm3 (4.0-10.0)
[2019-07-11 14:39] LABS: BLOOD UREA NITROGEN 21.8 mg/dL (7-18); CALCIUM 8.5 mg/dL (8.5-10.1); CREATININE 0.7 mg/dL (0.55-1.3); POTASSIUM 3.8 mmol/L (3.5-5.1)
[2019-07-11] MEDS ORDERED: VANCOMYCIN 1 GM in D5W (PRE-DOCKED) 1,000 MG/250 ML IVPB ONE (14:53)
[2019-07-11 15:02] LABS: ANISOCYTOSIS 2+; MACROCYTOSIS 1+; PLATELET ESTIMATE INCREASED; TARGET CELLS 1+; TEAR DROP CELLS 1+
--- NOTE | 2019-07-11 15:04 | PDOC ---
History of Present Illness - General Chief Complaint: Wound Stated Complaint: MRSA RT LEG Time Seen by Provider: 07/11/19 13:20 - History of Present Illness Initial Comments: 07/11/19 14:56 The patient is a 59 year old female with history of HTN, HLD, DM, Afib, MRSA cellulitis who presents for evaluation of right lower extremity pain. The patient reports that she was recently admitted for COPD exacerbation and during that admission she was being treated with vancomycin for a right lower extremity cellulitis. She notes that her symptoms improved however after discharge, she began developing worsening redness and warmth with associated pain over the past 3 days prompting her presentation to the ED for further evaluation. She otherwise denies fevers, chills, SOB, chest pain, nausea, vomiting, abdominal pain, or changes with urination or bowel movements. Past History - Past Medical History Allergies/Adverse Reactions: Allergies Allergy/AdvReac Type Severity Reaction Status Date / Time Penicillins Allergy Hives Verified 07/11/19 13:21 Sulfa (Sulfonamide Allergy Hives Verified 07/11/19 13:21 Antibiotics) [Sulfa(Sulfonamide Antibiotics)] Home Medications: Ambulatory Orders Apixaban [Eliquis] 5 mg PO BID 05/17/19 Atorvastatin Calcium [Lipitor] 10 mg PO HS 05/17/19 Cholecalciferol (Vitamin D3) [Vitamin D -] 2,000 unit PO DAILY 05/17/19 Cyanocobalamin [Vitamin B12 -] 1,000 mcg PO DAILY 05/17/19 Cyclosporine [Restasis] 1 each OS BID 05/17/19 Diltiazem Cd [Cardizem Cd -] 300 mg PO DAILY 05/17/19 Levalbuterol Tartrate [Xopenex Hfa] 1 puff IH BID PRN 05/17/19 [place]-3S/Dha/Epa/Fish Oil [Fish Oil 1,000 mg Softgel] 1 each PO DAILY 05/17/19 Roflumilast [Daliresp] 500 mcg PO DAILY 05/17/19 Tiotropium [place] [Spiriva] 18 mcg IH DAILY 05/17/19 clonazePAM [Klonopin -] 0.5 mg PO PRN PRN 05/17/19 Amitriptyline HCl [Elavil -] 50 mg PO HS tablet 05/21/19 Azithromycin 250 mg PO Q2D #60 tablet 06/18/19 Budesonide/Formeterol Fumarate [SYMBICORT 160/4.5mcg -] 1 inh PO BID 07/01/19 Famotidine [Pepcid -] 40 mg PO BID 07/01/19 Glipizide Xl [Glucotrol Xl -] 5 mg PO DAILY@0700 30 Days #30 tab.er.24 07/07/19 Levalbuterol HCl [Xopenex] 0.63 mg IH RTID vial.neb. 07/07/19 Mag Hydrox/Al Hydrox/Simeth [Mylanta Oral Suspension -] 30 ml PO Q8H PRN cup Nystatin Oral Suspension - [Nystatin Oral Susp 348035 Units/5 ML -] 500,000 units PO Q6HPO PRN 10 Days #1 cup 07/07/19 predniSONE [Deltasone -] 40 mg PO DAILY #30 tablet 07/07/19 Anemia: No Asthma: Yes Cancer: No Cardiac Disorders: Yes (Tachycardia) CVA: No COPD: Yes CHF: No DVT: No Dementia: No Diabetes: Yes (BORDERLINE) GI Disorders: Yes (GERD) Disorders: No HTN: Yes Hypercholesterolemia: Yes Liver Disease: No Seizures: No Thyroid Disease: Yes (NODULES) - Surgical History Abdominal Surgery: Yes (POLYP REMOVED FROM UTERUS 09/06/13) Appendectomy: No Cardiac Surgery: No Cholecystectomy: No GI Surgery: Yes (umbilical hernia/wound vac) Lung Surgery: No Neurologic Surgery: No Orthopedic Surgery: Yes (BUNION REMOVAL RT FOOT 2013) - Immunization History Immunization Up to Date: Yes - Psycho Social/Smoking Cessation Hx Smoking Status: Yes Smoking History: Never smoked Have you smoked in the past 12 months: No Number of Cigarettes Smoked Daily: 0 If you are a former smoker, when did you quit?: 2012 'Breaking Loose' booklet given: 10/28/13 Hx Alcohol Use: No Drug/Substance Use Hx: No Substance Use Type: None Hx Substance Use Treatment: No Review of Systems - Review of Systems Comments:: 07/11/19 14:58 Constitutional: No fevers, chills, fatigue, malaise HEENT: No Rhinorrhea, nasal congestion, visual changes Cardiovascular: No chest pain, syncope, palpitations, lightheadedness Respiratory: No Cough, SOB, Hemoptysis, Gastrointestinal: No Abdominal pain, Nausea, Vomiting, Constipation, Diarrhea, Melena Genitourinary: No Dysuria, Frequency, Urgency, Hesitancy, Hematuria, Flank pain Musculoskeletal: No Myalgia, arthralgia Skin: Right lower extremity redness and wound. No itching, bruising, pallor Neurologic: No Headache, Dizziness, Numbness, Weakness, or Tingling Psychiatric: No Hallucinations. No SI or HI *Physical Exam - Vital Signs Last Vital Signs Temp Pulse Resp BP Pulse Ox 97.9 F 100 H 18 120/70 97 07/11/19 13:18 07/11/19 13:18 07/11/19 13:18 07/11/19 13:18 07/11/19 13:18 - Physical Exam Comments: 07/11/19 14:59 General Appearance: Nourished. No Apparent Distress HEENT: No Pharyngeal Erythema, Tonsillar Exudate, Tonsillar Erythema Neck: No Cervical Lymphadenopathy Respiratory/Chest: Lungs Clear, Normal Breath Sounds. No Crackles, Rales, Rhonchi, Wheezing Cardiovascular: Regular Rhythm, Regular Rate. No Murmur, Gallops, Rubs Gastrointestinal/Abdominal: Normal Bowel Sounds, Soft. No Guarding, Rebound, Tenderness Musculoskeletal: No CVA Tenderness Extremity: Wound to the right lower extremity with surrounding erythema and minimal warmth with tenderness to palpation on exam. Normal Capillary Refill Integumentary: Normal Color, Dry, Warm Neurologic: Fully Oriented, Alert, Normal Mood/Affect, Normal Response, ED Treatment Course - LABORATORY CBC & Chemistry Diagram: 07/11/19 13:55 07/11/19 13:55 - ADDITIONAL ORDERS Additional order review: Laboratory Results 07/11/19 13:55 Sodium 145 Potassium 3.8 Chloride 111 H Carbon Dioxide 27 Anion Gap 6 L BUN 21.8 H Creatinine 0.7 Est GFR (CKD-EPI)AfAm 109.91 Est GFR (CKD-EPI)NonAf 94.84 Random Glucose 130 H Calcium 8.5 07/11/19 13:55 RBC 3.92 MCV 75.9 L MCHC 29.6 L RDW 20.9 H MPV 7.0 L D Neutrophils % 92.2 H Lymphocytes % 4.9 L D Monocytes % 2.7 L Eosinophils % 0.0 Basophils % 0.2 Medical Decision Making - Medical Decision Making 07/11/19 15:00 The patient is a 59 year old female with history of HTN, HLD, DM, Afib, MRSA cellulitis who presents for evaluation of right lower extremity pain. Given the patient's history and physical exam, we will obtain a cbc, bmp, wound culture to evaluate further. CBC demonstrated a wbc elevation to 17. BMP is unremarkable. The patient is on chronic steroids at home which may be the cause of her WBC elevation. However, given her recurrent symptoms of right lower extremity redness, warmth and pain, we will treat with vancomycin and the patient will be obs admitted for further monitoring. We will continue to monitor and reassess while here in the ED. Discharge - Discharge Information Problems reviewed: Yes Clinical Impression/Diagnosis: MRSA (methicillin resistant Staphylococcus aureus) infection, Cellulitis of right leg Condition: Stable - Admission Yes - Follow up/Referral Referrals: Cristal Ludwig MD [Primary Care Provider] - - Patient Discharge Instructions - Post Discharge Activity
[2019-07-11] MEDS ORDERED: VANCOMYCIN 1 GRAM (PRE-DOCKED) 1,000 MG/250 ML BAG IVPB ONE (15:16)
--- NOTE | 2019-07-11 15:35 | PDOC ---
Documentation entered by Danielle Hinds SCRIBE, acting as scribe for Jason Buck MD. Jason Buck MD: This documentation has been prepared by the Lizet golden Nirvannie, SCRIBE, under my direction and personally reviewed by me in its entirety. I confirm that the documentation accurately reflects all work, treatment, procedures, and medical decision making performed by me. Attending Attestation - Resident Resident Name: Christoph Sanchez - ED Attending Attestation I have performed the following: I have examined & evaluated the patient, The case was reviewed & discussed with the resident, I agree w/resident's findings & plan - HPI HPI: 07/11/19 15:19 The patient is a 59 year old female, with a significant past medical history of HTN, HLD, DM, Afib, MRSA cellulitis, and recent admission to [facility] for COPD exacerbation and RLE cellulitis (07/01-07/07), who presents to the emergency department with, 3 days of worsening RLE pain, erythema, and warmth. As per patient, her symptoms improved after her discharge but has since gotten progressively worsening, prompting her arrival to the ED. She denies recent fevers, chills, headache or dizziness. She denies recent nausea, vomiting, diarrhea or constipation. She denies recent dysuria, frequency, urgency or hematuria. She denies recent chest pain or shortness of breath. Allergies: PCN, Sulfa Primary Care Physician: Dr. Cristal Ludwig - Physicial Exam PE: 07/11/19 15:34 Vitals: Triage Vital signs reviewed General Appearance: No acute distress, well nourished well developed, Cardiac: Regular rate and rhythym, no murmurs, no rubs, no gallops, Lungs: Clear to auscultation bilateral, good air movement bilaterally, Abdomen: Soft, non distended, normal bowel sounds, non tender to palpation Extremities: Full range of motion to all extremities, no cyanosis, clubbing, or edema Skin: Warm and dry, no rashes or lesions spreading cellulitis to left lower extremity Psych: Normal mood, normal affect - Medical Decision Making 07/11/19 15:34 Recent admission COPD failed antibiotics now with progressively spreading cellulitis We will observe overnight for IV antibiotics and further management
[2019-07-11] MEDS ORDERED: ACETAMINOPHEN 1000 MG/100 ML VIAL (NON FORMULARY) IVPB ONE (16:39)
[2019-07-11] MEDS ORDERED: ACETAMINOPHEN INJECTION 100 ML IVPB ONE (16:50)
[2019-07-11] MEDS ORDERED: oxyCODONE HCL 5 MG TABLET PO ONE (18:13)
[2019-07-11] MEDS ORDERED: oxyCODONE HCL 5 MG TABLET ONE (18:30)
[2019-07-11] MEDS: AMITRIPTYLINE HCL 25 MG TABLET (FP) PO SCH (23:00)
[2019-07-11] MEDS: ATORVASTATIN CA 10 MG TABLET (FP) PO SCH (23:01)
[2019-07-11] MEDS: APIXABAN 5 MG TABLET PO SCH (23:01)
[2019-07-11] MEDS: BUDESONIDE/FORMETEROL FUMARATE 160/4.5 mcg INHALER IH SCH (23:01)
[2019-07-11] MEDS ORDERED: ATORVASTATIN CA 10 MG TABLET (FP) ONE (23:28)
[2019-07-12] MEDS ORDERED: glipiZIDE-XL 5 MG TAB.ER.24 PO SCH (07:00)
[2019-07-12] MEDS: INSULIN SLIDING SCALE (NOVOLOG) 1 VIAL SQ SCH ×2 (07:03→17:43)
[2019-07-12 07:46] LABS: BASO % 0.6 % (0-2.0); EOS % 0.6 % (0-4.5); HEMATOCRIT 29.1 % (32.4-45.2); HEMOGLOBIN 8.7 GM/dL (10.7-15.3); LYMPH % 22.8 % (8-40); MCH 22.5 pg (25.7-33.7); MCHC 29.9 g/dl (32.0-36.0); MEAN CELL VOLUME 75.3 fl (80-96); MEAN PLT VOLUME 7.9 fl (7.5-11.1); MONO % 5.9 % (3.8-10.2); NEUT % 70.1 % (42.8-82.8); PLATELET COUNT 502 K/MM3 (134-434); RBC 3.87 M/mm3 (3.60-5.2); RDW 20.9 % (11.6-15.6); WHITE BLOOD COUNT 13.3 K/mm3 (4.0-10.0)
[2019-07-12 08:02] LABS: ALBUMIN 2.5 g/dl (3.4-5.0); BILIRUBIN,TOTAL 0.3 mg/dL (0.2-1); BLOOD UREA NITROGEN 18.5 mg/dL (7-18); CALCIUM 8.5 mg/dL (8.5-10.1); CREATININE 0.6 mg/dL (0.55-1.3); POTASSIUM 3.7 mmol/L (3.5-5.1); TOT PROT 5.1 g/dl (6.4-8.2)
[2019-07-12] MEDS: AZITHROMYCIN 250 MG TABLET PO SCH (10:00)
[2019-07-12] MEDS: BUDESONIDE/FORMETEROL FUMARATE 160/4.5 mcg INHALER IH SCH ×2 (10:00→22:40)
[2019-07-12] MEDS: APIXABAN 5 MG TABLET PO SCH ×2 (10:00→22:40)
[2019-07-12] MEDS: ROFLUMILAST 500 MCG TABLET PO SCH (10:00)
--- NOTE | 2019-07-12 15:48 | HP ---
Admitting History and Physical - Primary Care Physician PCP: Cristal Ludwig - Admission History of Present Illness: Pt seen/ examined in er chart reviewed well known to me recent admission for copd exac The patient is a 59 year old female with history of HTN, HLD, DM, Afib, MRSA cellulitis who presents for evaluation of right lower extremity pain. The patient reports that she was recently admitted for COPD exacerbation and during that admission she was being treated with vancomycin for a right lower extremity cellulitis. She notes that her symptoms improved however after discharge, she began developing worsening redness and warmth with associated pain over the past 3 days prompting her presentation to the ED for further evaluation. She otherwise denies fevers, chills, SOB, chest pain, nausea, vomiting, abdominal pain, or changes with urination or bowel movements. Given abx- vanco pt comfortable mood stable History Source: Patient Limitations to Obtaining History: No Limitations - Past Medical History Cardiovascular: Yes: AFIB, CAD, CHF, Deep Vein Thrombosis, HTN, Hyperlipdemia Pulmonary: Yes: Bronchitis, COPD, Pneumonia, Pulmonary Embolus (on Eliquis). No : Asthma, O2 Dependent, Previously Intubated, Pulmonary Fibrosis, Sleep Apnea Gastrointestinal: Yes: GERD, Other (HERNIA REPAIR WITH COMPLICATIONS AND POST OP SBO) ...LMP: 06/30/13 Heme/Onc: Yes: B12 Deficiency Psych: Yes: Anxiety Musculoskeletal: Yes: Osteoarthritis Rheumatology: Yes: Other (OSTEOARTHRITIS) Endocrine: Yes: Diabetes Mellitus - Past Surgical History Past Surgical History: Yes: Hernia Repair - Smoking History Smoking history: Never smoked Have you smoked in the past 12 months: No Aproximately how many cigarettes per day: 0 If you are a former smoker, when did you quit?: 2013 - Alcohol/Substance Use Hx Alcohol Use: No History of Substance Use: reports: None - Social History ADL: Independent History of Recent Travel: No Home Medications - Allergies Allergies/Adverse Reactions: Allergies Allergy/AdvReac Type Severity Reaction Status Date / Time Penicillins Allergy Hives Verified 07/11/19 13:21 Sulfa (Sulfonamide Allergy Hives Verified 07/11/19 13:21 Antibiotics) [Sulfa(Sulfonamide Antibiotics)] - Home Medications Home Medications: Ambulatory Orders Apixaban [Eliquis] 5 mg PO BID 05/17/19 Atorvastatin Calcium [Lipitor] 10 mg PO HS 05/17/19 Cholecalciferol (Vitamin D3) [Vitamin D -] 2,000 unit PO DAILY 05/17/19 Cyanocobalamin [Vitamin B12 -] 1,000 mcg PO DAILY 05/17/19 Cyclosporine [Restasis] 1 each OS BID 05/17/19 Diltiazem Cd [Cardizem Cd -] 300 mg PO DAILY 05/17/19 Levalbuterol Tartrate [Xopenex Hfa] 1 puff IH BID PRN 05/17/19 [place]uxley-3S/Dha/Epa/Fish Oil [Fish Oil 1,000 mg Softgel] 1 each PO DAILY 05/17/19 Roflumilast [Daliresp] 500 mcg PO DAILY 05/17/19 Tiotropium [place] [Spiriva] 18 mcg IH DAILY 05/17/19 clonazePAM [Klonopin -] 0.5 mg PO PRN PRN 05/17/19 Amitriptyline HCl [Elavil -] 50 mg PO HS tablet 05/21/19 Azithromycin 250 mg PO Q2D #60 tablet 06/18/19 Budesonide/Formeterol Fumarate [SYMBICORT 160/4.5mcg -] 1 inh PO BID 07/01/19 Famotidine [Pepcid -] 40 mg PO BID 07/01/19 Glipizide Xl [Glucotrol Xl -] 5 mg PO DAILY@0700 30 Days #30 tab.er.24 07/07/19 Levalbuterol HCl [Xopenex] 0.63 mg IH RTID vial.neb. 07/07/19 Mag Hydrox/Al Hydrox/Simeth [Mylanta Oral Suspension -] 30 ml PO Q8H PRN cup Nystatin Oral Suspension - [Nystatin Oral Susp 123995 Units/5 ML -] 500,000 units PO Q6HPO PRN 10 Days #1 cup 07/07/19 predniSONE [Deltasone -] 40 mg PO DAILY #30 tablet 07/07/19 Review of Systems - Review of Systems Constitutional: reports: No Symptoms Eyes: reports: No Symptoms Neck: reports: No Symptoms Cardiovascular: reports: No Symptoms Respiratory: reports: No Symptoms Gastrointestinal: reports: No Symptoms Genitourinary: reports: No Symptoms Integumentary: reports: Erythema Neurological: reports: No Symptoms Endocrine: reports: No Symptoms Psychiatric: reports: Anxiety Physical Examination Vital Signs: Vital Signs Temperature 98.2 F 07/12/19 10:00 Pulse Rate 87 07/12/19 10:00 Respiratory Rate 15 07/12/19 10:00 Blood Pressure 131/73 07/12/19 10:00 O2 Sat by Pulse Oximetry (%) 96 07/12/19 10:00 Constitutional: Yes: No Distress, Calm Eyes: Yes: Conjunctiva Clear Neck: Yes: Supple Cardiovascular: Yes: Regular Rate and Rhythm Respiratory: Yes: CTA Bilaterally Gastrointestinal: Yes: Soft Extremities: Yes: Erythema (right lower extremity) Edema: Yes Edema: RLE: Trace Labs: CBC, BMP 07/12/19 05:30 07/12/19 05:30 Problem List - Problems (1) Cellulitis of right leg Code(s): L03.115 - CELLULITIS OF RIGHT LOWER LIMB (2) Anxiety Code(s): F41.9 - ANXIETY DISORDER, UNSPECIFIED (3) COPD (chronic obstructive pulmonary disease) Code(s): J44.9 - CHRONIC OBSTRUCTIVE PULMONARY DISEASE, UNSPECIFIED (4) Diabetes Code(s): E11.9 - TYPE 2 DIABETES MELLITUS WITHOUT COMPLICATIONS (5) Paroxysmal A-fib Code(s): I48.0 - PAROXYSMAL ATRIAL FIBRILLATION Assessment/Plan Abx I/d to follow Doubt Dvt Hold Glipizide Monitor bgm local care will follow
[2019-07-12] MEDS: TIOTROPIUM BROMIDE 2.5 MCG (SPIRIVA) RESPIMAT INHALER IH SCH (17:43)
--- NOTE | 2019-07-12 18:05 | PN ---
Progress Note (short form) - Note Progress Note: ID CONSULT DICTATED CELLULITIS R LE R/O DVT HX MRSA EMPIRIC VANCOMYCIN DOPPLER R LE
[2019-07-12] MEDS ORDERED: VANCOMYCIN 1 GRAM (PRE-DOCKED) 1,000 MG/250 ML BAG IVPB ONE (19:36)
[2019-07-12] MEDS: VANCOMYCIN 1 GRAM (PRE-DOCKED) 1,000 MG/250 ML BAG IVPB SCH (20:25)
[2019-07-12 22:35] VITALS: BMI 29.4
[2019-07-12] MEDS: AMITRIPTYLINE HCL 25 MG TABLET (FP) PO SCH (22:40)
[2019-07-12] MEDS: ATORVASTATIN CA 10 MG TABLET (FP) PO SCH (22:40)
[2019-07-12] MEDS: ACETAMINOPHEN 325 MG TABLET (FP) PO PRN (22:48)
[2019-07-12] MEDS: clonazePAM 0.5 MG TABLET PO PRN (22:48)
[2019-07-13] MEDS: VANCOMYCIN 1 GRAM (PRE-DOCKED) 1,000 MG/250 ML BAG IVPB SCH ×2 (06:19→18:36)
[2019-07-13] MEDS: INSULIN SLIDING SCALE (NOVOLOG) 1 VIAL SQ SCH ×2 (06:57→17:40)
[2019-07-13] MEDS: MAG HYDROX/AL HYDROX/SIMETH 30 ML UNIT-DOSE CUP PO PRN (07:00)
[2019-07-13] MEDS: APIXABAN 5 MG TABLET PO SCH ×2 (09:24→22:20)
[2019-07-13] MEDS: BUDESONIDE/FORMETEROL FUMARATE 160/4.5 mcg INHALER IH SCH ×2 (09:24→22:25)
[2019-07-13] MEDS: ROFLUMILAST 500 MCG TABLET PO SCH (09:24)
[2019-07-13] MEDS: ACETAMINOPHEN 325 MG TABLET (FP) PO PRN (12:53)
[2019-07-13] MEDS: TIOTROPIUM BROMIDE 2.5 MCG (SPIRIVA) RESPIMAT INHALER IH SCH (12:56)
[2019-07-13] MEDS: FAMOTIDINE 20 MG TABLET PO SCH ×3 (13:27→22:20)
[2019-07-13] MEDS: traMADol HCL 50 MG TABLET PO PRN ×2 (13:27→20:42)
--- NOTE | 2019-07-13 16:21 | PN ---
Progress Note (short form) - Note Progress Note: has swelling in left axilla pain ful right leg swelling and wound better Vital Signs - 24 hr 07/12/19 07/12/19 07/12/19 21:22 22:20 23:13 Temperature 98 F Pulse Rate 100 H Pulse Rate [ 90 Left Radial] Respiratory 20 17 Rate Blood Pressure 111/67 Blood Pressure 118/65 [Left Arm] O2 Sat by Pulse 95 96 96 Oximetry (%) 07/13/19 07/13/19 07/13/19 05:00 09:00 14:55 Temperature 98 F 98.1 F 99.0 F Pulse Rate 90 114 H 89 Pulse Rate [ Left Radial] Respiratory 18 18 18 Rate Blood Pressure 113/70 109/70 119/67 Blood Pressure [Left Arm] O2 Sat by Pulse Oximetry (%) Current Medications Generic Name Dose Route Start Last Admin Trade Name Freq PRN Reason Stop Dose Admin Acetaminophen 650 mg 07/11/19 17:38 07/13/19 12:53 Tylenol - PO 650 mg Q6H PRN Administration FEVER Al Hydroxide/Mg Hydroxide 30 ml 07/11/19 17:34 07/13/19 07:00 Mylanta Oral Suspension - PO 30 ml Q8H PRN Administration INDIGESTION Amitriptyline HCl 50 mg 07/11/19 22:00 07/12/19 22:40 Elavil - PO 50 mg HS SANDEEP Administration Apixaban 5 mg 07/11/19 22:00 07/13/19 09:24 Eliquis - PO 5 mg BID SANDEEP Administration Atorvastatin Calcium 10 mg 07/11/19 22:00 07/12/19 22:40 Lipitor - PO 10 mg HS SANDEEP Administration Azithromycin 250 mg 07/12/19 10:00 07/12/19 10:00 Zithromax - PO 250 mg Q2D SANDEEP Administration Budesonide/Formoterol Fumarate 1 puff 07/11/19 22:00 07/13/19 09:24 Symbicort 160/4.5mcg - IH 1 puff BID SANDEEP Administration Clonazepam 0.5 mg 07/11/19 22:00 07/12/19 22:48 Klonopin - PO 0.5 mg BID PRN Administration ANXIETY Diltiazem HCl 300 mg 07/12/19 10:00 07/13/19 09:24 Cardizem Cd - PO 300 mg DAILY SANDEEP Administration Famotidine 20 mg 07/13/19 13:15 07/13/19 13:27 Pepcid - PO 20 mg BID SANDEEP Administration Vancomycin HCl 1,000 mg in 250 mls @ 166.667 mls/hr 07/12/19 18:15 07/13/19 06:19 Vancomycin (Pre-Docked) IVPB 166.667 mls/hr Q12H SANDEEP Administration Protocol Insulin Aspart 1 vial 07/12/19 07:00 07/13/19 06:57 Novolog Vial Sliding Scale - SQ Not Given BIDAC [facility] Protocol Roflumilast 500 mcg 07/12/19 10:00 07/13/19 09:24 Daliresp PO 500 mcg DAILY SANDEEP Administration Tiotropium [place] 2 puff 07/12/19 10:00 07/13/19 12:56 Spiriva Respimat IH 2 puff DAILY SANDEEP Administration Tramadol HCl 50 mg 07/13/19 13:10 07/13/19 13:27 Ultram - PO 50 mg Q6H PRN Administration PAIN LEVEL 6-10 Laboratory Results - last 24 hr 07/12/19 07/12/19 07/13/19 17:39 22:58 06:55 POC Glucometer 93 109 109 S1 S2 RRR Lungs decreased Abd- soft, NT left axilla-- swelling + tender + right leg-- cellulitis decreased plan IV vanco warm compresses continue with meds Problem List - Problems (1) Cellulitis of right leg Code(s): L03.115 - CELLULITIS OF RIGHT LOWER LIMB (2) Diabetes Code(s): E11.9 - TYPE 2 DIABETES MELLITUS WITHOUT COMPLICATIONS (3) MRSA (methicillin resistant Staphylococcus aureus) infection Code(s): A49.02 - METHICILLIN RESIS STAPH INFECTION, UNSP SITE (4) Abscess of axilla, left Code(s): L02.412 - CUTANEOUS ABSCESS OF LEFT AXILLA
[2019-07-13] MEDS: ATORVASTATIN CA 10 MG TABLET (FP) PO SCH (22:20)
[2019-07-13] MEDS: AMITRIPTYLINE HCL 25 MG TABLET (FP) PO SCH (22:20)
[2019-07-14] MEDS: clonazePAM 0.5 MG TABLET PO PRN (00:15)
[2019-07-14] MEDS: ACETAMINOPHEN 325 MG TABLET (FP) PO PRN ×2 (00:29→13:09)
[2019-07-14] MEDS: MAG HYDROX/AL HYDROX/SIMETH 30 ML UNIT-DOSE CUP PO PRN ×2 (00:32→11:30)
[2019-07-14] MEDS: VANCOMYCIN 1 GRAM (PRE-DOCKED) 1,000 MG/250 ML BAG IVPB SCH ×2 (05:16→18:43)
[2019-07-14] MEDS: INSULIN SLIDING SCALE (NOVOLOG) 1 VIAL SQ SCH ×2 (08:18→17:03)
[2019-07-14] MEDS ORDERED: PT OWN MED DRAWER 7, Y5N ONE ×2 (09:08→10:35)
[2019-07-14] MEDS: ROFLUMILAST 500 MCG TABLET PO SCH (10:53)
[2019-07-14] MEDS: AZITHROMYCIN 250 MG TABLET PO SCH (10:53)
[2019-07-14] MEDS: APIXABAN 5 MG TABLET PO SCH ×2 (10:53→22:26)
[2019-07-14] MEDS: FAMOTIDINE 20 MG TABLET PO SCH ×2 (10:53→22:26)
[2019-07-14] MEDS: BUDESONIDE/FORMETEROL FUMARATE 160/4.5 mcg INHALER IH SCH ×2 (10:54→22:28)
[2019-07-14] MEDS: TIOTROPIUM BROMIDE 2.5 MCG (SPIRIVA) RESPIMAT INHALER IH SCH (10:55)
[2019-07-14] MEDS: traMADol HCL 50 MG TABLET PO PRN ×2 (11:30→22:23)
--- NOTE | 2019-07-14 16:33 | PN ---
Progress Note, Physician History of Present Illness: REPORTS LESS R LE PAIN/ SWELLING + TENDER SWELLING L AXILLA NO C/O F/C DOPPLER NEGATIVE DVT - Current Medication List Current Medications: Active Medications Acetaminophen (Tylenol -) 650 mg PO Q6H PRN PRN Reason: FEVER Last Admin: 07/14/19 13:09 Dose: 650 mg Al Hydroxide/Mg Hydroxide (Mylanta Oral Suspension -) 30 ml PO Q8H PRN PRN Reason: INDIGESTION Last Admin: 07/14/19 11:30 Dose: 30 ml Amitriptyline HCl (Elavil -) 50 mg PO HS [facility] Last Admin: 07/13/19 22:20 Dose: 50 mg Apixaban (Eliquis -) 5 mg PO BID [facility] Last Admin: 07/14/19 10:53 Dose: 5 mg Atorvastatin Calcium (Lipitor -) 10 mg PO HS [facility] Last Admin: 07/13/19 22:20 Dose: 10 mg Azithromycin (Zithromax -) 250 mg PO Q2D [facility] Last Admin: 07/14/19 10:53 Dose: 250 mg Budesonide/Formoterol Fumarate (Symbicort 160/4.5mcg -) 1 puff IH BID [facility] Last Admin: 07/14/19 10:54 Dose: 1 puff Clonazepam (Klonopin -) 0.5 mg PO BID PRN PRN Reason: ANXIETY Last Admin: 07/14/19 00:15 Dose: 0.5 mg Diltiazem HCl (Cardizem Cd -) 300 mg PO DAILY [facility] Last Admin: 07/14/19 10:53 Dose: 300 mg Famotidine (Pepcid -) 20 mg PO BID [facility] Last Admin: 07/14/19 10:53 Dose: 20 mg Glipizide (Glucotrol Xl -) 2.5 mg PO DAILY@0700 [facility] Vancomycin HCl (Vancomycin (Pre-Docked)) 1,000 mg in 250 mls @ 166.667 mls/hr IVPB Q12H [facility]; Protocol Last Admin: 07/14/19 05:16 Dose: 166.667 mls/hr Insulin Aspart (Novolog Vial Sliding Scale -) 1 vial SQ BIDAC [facility]; Protocol Last Admin: 07/14/19 08:18 Dose: Not Given Roflumilast (Daliresp) 500 mcg PO DAILY [facility] Last Admin: 07/14/19 10:53 Dose: 500 mcg Tiotropium [place] (Spiriva Respimat) 2 puff IH DAILY [facility] Last Admin: 07/14/19 10:55 Dose: 2 puff Tramadol HCl (Ultram -) 50 mg PO Q6H PRN PRN Reason: PAIN LEVEL 6-10 Last Admin: 07/14/19 11:30 Dose: 50 mg - Objective Vital Signs: Vital Signs Temperature 98 F 07/14/19 11:00 Pulse Rate 99 H 07/14/19 11:00 Respiratory Rate 18 07/14/19 11:00 Blood Pressure 113/58 L 07/14/19 11:00 O2 Sat by Pulse Oximetry (%) 94 L 07/14/19 09:00 Constitutional: Yes: No Distress Cardiovascular: Yes: Regular Rate and Rhythm, S1, S2 Respiratory: Yes: CTA Bilaterally Gastrointestinal: Yes: Normal Bowel Sounds, Soft Extremities: Yes: Other (+ 2-3CM AREA INDURATION R LE NO FLUCTUANCE/ DRAINAGE + 1CM TENDER NODULE L AXILLA) Labs: CBC, BMP 07/12/19 05:30 07/12/19 05:30 Assessment/Plan RECURRENT SOFT TISSUE ABSCESSES MRSA CONTINUE VANCOMYCIN/WARM COMPRESSES
--- NOTE | 2019-07-14 18:47 | PN ---
Progress Note (short form) - Note Progress Note: decreased size swelling in left axilla, but very painful right leg swelling and wound better Vital Signs - 24 hr 07/13/19 07/13/19 07/13/19 19:17 21:00 23:00 Temperature 98.4 F 98.6 F Pulse Rate 78 102 H Respiratory 18 18 20 Rate Blood Pressure 115/67 119/69 O2 Sat by Pulse 96 Oximetry (%) 07/14/19 07/14/19 07/14/19 03:00 07:00 09:00 Temperature 98.8 F 98 F Pulse Rate 98 H 90 Respiratory 18 18 Rate Blood Pressure 121/70 120/67 O2 Sat by Pulse 94 L Oximetry (%) 07/14/19 11:00 Temperature 98 F Pulse Rate 99 H Respiratory 18 Rate Blood Pressure 113/58 L O2 Sat by Pulse Oximetry (%) Current Medications Generic Name Dose Route Start Last Admin Trade Name Freq PRN Reason Stop Dose Admin Acetaminophen 650 mg 07/11/19 17:38 07/14/19 13:09 Tylenol - PO 650 mg Q6H PRN Administration FEVER Al Hydroxide/Mg Hydroxide 30 ml 07/11/19 17:34 07/14/19 11:30 Mylanta Oral Suspension - PO 30 ml Q8H PRN Administration INDIGESTION Amitriptyline HCl 50 mg 07/11/19 22:00 07/13/19 22:20 Elavil - PO 50 mg HS SANDEEP Administration Apixaban 5 mg 07/11/19 22:00 07/14/19 10:53 Eliquis - PO 5 mg BID [facility] Administration Atorvastatin Calcium 10 mg 07/11/19 22:00 07/13/19 22:20 Lipitor - PO 10 mg HS [facility] Administration Azithromycin 250 mg 07/12/19 10:00 07/14/19 10:53 Zithromax - PO 250 mg Q2D [facility] Administration Budesonide/Formoterol Fumarate 1 puff 07/11/19 22:00 07/14/19 10:54 Symbicort 160/4.5mcg - IH 1 puff BID [facility] Administration Clonazepam 0.5 mg 07/11/19 22:00 07/14/19 00:15 Klonopin - PO 0.5 mg BID PRN Administration ANXIETY Diltiazem HCl 300 mg 07/12/19 10:00 07/14/19 10:53 Cardizem Cd - PO 300 mg DAILY [facility] Administration Famotidine 20 mg 07/13/19 13:15 07/14/19 10:53 Pepcid - PO 20 mg BID [facility] Administration Glipizide 2.5 mg 07/15/19 07:00 Glucotrol Xl - PO DAILY@0700 [facility] Vancomycin HCl 1,000 mg in 250 mls @ 166.667 mls/hr 07/12/19 18:15 07/14/19 18:43 Vancomycin (Pre-Docked) IVPB 166.667 mls/hr Q12H [facility] Administration Protocol Insulin Aspart 1 vial 07/12/19 07:00 07/14/19 17:03 Novolog Vial Sliding Scale - SQ Not Given BIDAC [facility] Protocol Roflumilast 500 mcg 07/12/19 10:00 07/14/19 10:53 Daliresp PO 500 mcg DAILY [facility] Administration Tiotropium [place] 2 puff 07/12/19 10:00 07/14/19 10:55 Spiriva Respimat IH 2 puff DAILY [facility] Administration Tramadol HCl 50 mg 07/13/19 13:10 07/14/19 11:30 Ultram - PO 50 mg Q6H PRN Administration PAIN LEVEL 6-10 Laboratory Results - last 24 hr 07/14/19 07/14/19 06:24 16:48 POC Glucometer 123 123 S1 S2 RRR Lungs decreased Abd- soft, NT left axilla-- swelling + tender +-- decreased size right leg-- cellulitis decreased plan IV vanco warm compresses continue with meds restart Dm meds add hibiclens Problem List - Problems (1) Cellulitis of right leg Code(s): L03.115 - CELLULITIS OF RIGHT LOWER LIMB (2) Diabetes Code(s): E11.9 - TYPE 2 DIABETES MELLITUS WITHOUT COMPLICATIONS (3) MRSA (methicillin resistant Staphylococcus aureus) infection Code(s): A49.02 - METHICILLIN RESIS STAPH INFECTION, UNSP SITE (4) Abscess of axilla, left Code(s): L02.412 - CUTANEOUS ABSCESS OF LEFT AXILLA
[2019-07-14] MEDS ORDERED: CHLORHEXIDINE GLUCONATE 4% CLEANSER FOR DECOLONIZATION TP SCH (22:00)
[2019-07-14] MEDS: AMITRIPTYLINE HCL 25 MG TABLET (FP) PO SCH (22:26)
[2019-07-14] MEDS: ATORVASTATIN CA 10 MG TABLET (FP) PO SCH (22:26)
[2019-07-15] MEDS: glipiZIDE-XL 2.5 MG TAB.ER.24 PO SCH (06:16)
[2019-07-15] MEDS: INSULIN SLIDING SCALE (NOVOLOG) 1 VIAL SQ SCH ×2 (06:17→17:35)
[2019-07-15] MEDS: ACETAMINOPHEN 325 MG TABLET (FP) PO PRN (06:25)
[2019-07-15] MEDS: VANCOMYCIN 1 GRAM (PRE-DOCKED) 1,000 MG/250 ML BAG IVPB SCH ×2 (06:26→18:11)
[2019-07-15] MEDS ORDERED: INSULIN (NOVOLOG) ASPART 100 UNITS/ML 10ML VIAL ONE (06:52)
[2019-07-15] MEDS ORDERED: PT OWN MED DRAWER 7, Y5N ONE ×3 (06:52→18:17)
[2019-07-15 08:24] LABS: BASO % 0.6 % (0-2.0); EOS % 1.2 % (0-4.5); HEMATOCRIT 26.6 % (32.4-45.2); HEMOGLOBIN 8.2 GM/dL (10.7-15.3); MCHC 30.9 g/dl (32.0-36.0); MEAN CELL VOLUME 74.4 fl (80-96); MONO % 8.1 % (3.8-10.2); NEUT % 71.1 % (42.8-82.8); PLATELET COUNT 399 K/MM3 (134-434); RBC 3.57 M/mm3 (3.60-5.2); RDW 20.6 % (11.6-15.6); WHITE BLOOD COUNT 10.9 K/mm3 (4.0-10.0)
[2019-07-15 08:58] LABS: ALBUMIN 2.3 g/dl (3.4-5.0); BILIRUBIN,TOTAL 0.5 mg/dL (0.2-1); CALCIUM 8.4 mg/dL (8.5-10.1); CREATININE 0.6 mg/dL (0.55-1.3); POTASSIUM 3.4 mmol/L (3.5-5.1); TOT PROT 4.7 g/dl (6.4-8.2)
[2019-07-15] MEDS: APIXABAN 5 MG TABLET PO SCH ×2 (10:10→21:46)
[2019-07-15] MEDS: FAMOTIDINE 20 MG TABLET PO SCH ×2 (10:10→21:45)
[2019-07-15] MEDS: ROFLUMILAST 500 MCG TABLET PO SCH (10:10)
[2019-07-15] MEDS: TIOTROPIUM BROMIDE 2.5 MCG (SPIRIVA) RESPIMAT INHALER IH SCH (10:11)
[2019-07-15] MEDS: BUDESONIDE/FORMETEROL FUMARATE 160/4.5 mcg INHALER IH SCH ×2 (10:11→21:47)
[2019-07-15 11:14] LABS: ANISOCYTOSIS 2+; MACROCYTOSIS 0; PLATELET ESTIMATE NORMAL; TEAR DROP CELLS 1+
[2019-07-15] MEDS ORDERED: POTASSIUM CHLORIDE ORAL LIQUID 20 MEQ/15 ML PO ONE (12:53)
--- NOTE | 2019-07-15 12:56 | PN ---
Progress Note (short form) - Note Progress Note: Pt seen/ examined chart reviewed awake/ comfortable mood calm and pleasant Vital Signs Temp 98.5 F 07/15/19 10:00 Pulse 87 07/15/19 10:00 Resp 19 07/15/19 10:00 BP 105/64 07/15/19 10:00 Pulse Ox 93 L 07/14/19 21:00 Intake & Output 07/14/19 07/15/19 07/15/19 23:59 11:59 23:59 Intake Total 800 0 Balance 800 0 Intake: IV 0 saline 0 IVPB 250 Oral 550 Other: Voiding Method Toilet Toilet # Unmeasured Voids Void 2 1 Bowel Movement No Active Medications Acetaminophen (Tylenol -) 650 mg PO Q6H PRN PRN Reason: FEVER Last Admin: 07/15/19 06:25 Dose: 650 mg Al Hydroxide/Mg Hydroxide (Mylanta Oral Suspension -) 30 ml PO Q8H PRN PRN Reason: INDIGESTION Last Admin: 07/14/19 11:30 Dose: 30 ml Amitriptyline HCl (Elavil -) 50 mg PO HS [facility] Last Admin: 07/14/19 22:26 Dose: 50 mg Apixaban (Eliquis -) 5 mg PO BID [facility] Last Admin: 07/15/19 10:10 Dose: 5 mg Atorvastatin Calcium (Lipitor -) 10 mg PO HS [facility] Last Admin: 07/14/19 22:26 Dose: 10 mg Azithromycin (Zithromax -) 250 mg PO Q2D [facility] Last Admin: 07/14/19 10:53 Dose: 250 mg Budesonide/Formoterol Fumarate (Symbicort 160/4.5mcg -) 1 puff IH BID [facility] Last Admin: 07/15/19 10:11 Dose: 1 puff Clonazepam (Klonopin -) 0.5 mg PO BID PRN PRN Reason: ANXIETY Last Admin: 07/14/19 00:15 Dose: 0.5 mg Diltiazem HCl (Cardizem Cd -) 300 mg PO DAILY [facility] Last Admin: 07/15/19 10:48 Dose: 300 mg Famotidine (Pepcid -) 20 mg PO BID [facility] Last Admin: 07/15/19 10:10 Dose: 20 mg Glipizide (Glucotrol Xl -) 2.5 mg PO DAILY@0700 [facility] Last Admin: 07/15/19 06:16 Dose: 2.5 mg Vancomycin HCl (Vancomycin (Pre-Docked)) 1,000 mg in 250 mls @ 166.667 mls/hr IVPB Q12H [facility]; Protocol Last Admin: 07/15/19 06:26 Dose: 166.667 mls/hr Insulin Aspart (Novolog Vial Sliding Scale -) 1 vial SQ BIDAC [facility]; Protocol Last Admin: 07/15/19 06:17 Dose: Not Given Potassium Chloride (Potassium Chloride Oral Liquid) 20 meq PO ONCE ONE Stop: 07/15/19 12:54 Roflumilast (Daliresp) 500 mcg PO DAILY [facility] Last Admin: 07/15/19 10:10 Dose: 500 mcg Tiotropium [place] (Spiriva Respimat) 2 puff IH DAILY [facility] Last Admin: 07/15/19 10:11 Dose: 2 puff Tramadol HCl (Ultram -) 50 mg PO Q6H PRN PRN Reason: PAIN LEVEL 6-10 Last Admin: 07/14/19 22:23 Dose: 50 mg CBC, BMP 07/15/19 07:51 07/15/19 07:51 Microbiology 07/12/19 20:45 Blood Culture - Preliminary Blood - Peripheral Venous NO GROWTH OBTAINED AFTER 48 HOURS, INCUBATION TO CONTINUE FOR 3 DAYS. 07/12/19 20:45 Blood Culture - Preliminary Blood - Peripheral Venous NO GROWTH OBTAINED AFTER 48 HOURS, INCUBATION TO CONTINUE FOR 3 DAYS. 07/11/19 19:00 Gram Stain - Final Cellulitis Wound Culture - Final Mr S Aureus Yeast Like Organism S1 S2 RRR Lungs decreased Abd- soft, NT left axilla-- swelling + tender +-- decreased size right leg-- cellulitis decreased plan IV vanco warm compresses continue with meds Breathing stable Problem List - Problems (1) Cellulitis of right leg Code(s): L03.115 - CELLULITIS OF RIGHT LOWER LIMB (2) Diabetes Code(s): E11.9 - TYPE 2 DIABETES MELLITUS WITHOUT COMPLICATIONS (3) MRSA (methicillin resistant Staphylococcus aureus) infection Code(s): A49.02 - METHICILLIN RESIS STAPH INFECTION, UNSP SITE (4) Abscess of axilla, left Code(s): L02.412 - CUTANEOUS ABSCESS OF LEFT AXILLA Problem List - Problems (1) Cellulitis of right leg Code(s): L03.115 - CELLULITIS OF RIGHT LOWER LIMB (2) Anxiety Code(s): F41.9 - ANXIETY DISORDER, UNSPECIFIED (3) COPD (chronic obstructive pulmonary disease) Code(s): J44.9 - CHRONIC OBSTRUCTIVE PULMONARY DISEASE, UNSPECIFIED (4) Diabetes Code(s): E11.9 - TYPE 2 DIABETES MELLITUS WITHOUT COMPLICATIONS (5) Paroxysmal A-fib Code(s): I48.0 - PAROXYSMAL ATRIAL FIBRILLATION
--- NOTE | 2019-07-15 15:15 | PN ---
Progress Note (short form) - Note Progress Note: reports a small abscess under her left axilla and still with pain RLE Vital Signs Period Temp Pulse Resp BP Sys/Jordan Pulse Ox Last 24 Hr 98.2 F-98.6 F 83-110 - 105-129/64-76 93-94 cor-rrr lungs bilateral scattered wheeze abd soft,nt ext left axilla with tender small mass - 1 cm diam RLE with indurated area pretibial CBC, BMP 07/15/19 07:51 07/15/19 07:51 Microbiology 07/12/19 20:45 Blood - Peripheral Venous Blood Culture - Preliminary NO GROWTH OBTAINED AFTER 48 HOURS, INCUBATION TO CONTINUE FOR 3 DAYS. 07/12/19 20:45 Blood - Peripheral Venous Blood Culture - Preliminary NO GROWTH OBTAINED AFTER 48 HOURS, INCUBATION TO CONTINUE FOR 3 DAYS. 07/11/19 19:00 Cellulitis Gram Stain - Final 07/11/19 19:00 Cellulitis Wound Culture - Final Mr S Aureus Yeast Like Organism 07/12/19 05:43 Nares - Left Nares MRSA Screen - Final NO MRSA ISOLATED Current Medications Acetaminophen (Tylenol -) 650 mg PO Q6H PRN PRN Reason: FEVER Last Admin: 07/15/19 06:25 Dose: 650 mg Al Hydroxide/Mg Hydroxide (Mylanta Oral Suspension -) 30 ml PO Q8H PRN PRN Reason: INDIGESTION Last Admin: 07/14/19 11:30 Dose: 30 ml Amitriptyline HCl (Elavil -) 50 mg PO HS SANDEEP Last Admin: 07/14/19 22:26 Dose: 50 mg Apixaban (Eliquis -) 5 mg PO BID SANDEEP Last Admin: 07/15/19 10:10 Dose: 5 mg Atorvastatin Calcium (Lipitor -) 10 mg PO HS SANDEEP Last Admin: 07/14/19 22:26 Dose: 10 mg Azithromycin (Zithromax -) 250 mg PO Q2D SANDEEP Last Admin: 07/14/19 10:53 Dose: 250 mg Budesonide/Formoterol Fumarate (Symbicort 160/4.5mcg -) 1 puff IH BID SANDEEP Last Admin: 07/15/19 10:11 Dose: 1 puff Clonazepam (Klonopin -) 0.5 mg PO BID PRN PRN Reason: ANXIETY Last Admin: 07/14/19 00:15 Dose: 0.5 mg Diltiazem HCl (Cardizem Cd -) 300 mg PO DAILY [facility] Last Admin: 07/15/19 10:48 Dose: 300 mg Famotidine (Pepcid -) 20 mg PO BID [facility] Last Admin: 07/15/19 10:10 Dose: 20 mg Glipizide (Glucotrol Xl -) 2.5 mg PO DAILY@0700 [facility] Last Admin: 07/15/19 06:16 Dose: 2.5 mg Vancomycin HCl (Vancomycin (Pre-Docked)) 1,000 mg in 250 mls @ 166.667 mls/hr IVPB Q12H [facility]; Protocol Last Admin: 07/15/19 06:26 Dose: 166.667 mls/hr Insulin Aspart (Novolog Vial Sliding Scale -) 1 vial SQ BIDAC [facility]; Protocol Last Admin: 07/15/19 06:17 Dose: Not Given Roflumilast (Daliresp) 500 mcg PO DAILY [facility] Last Admin: 07/15/19 10:10 Dose: 500 mcg Tiotropium [place] (Spiriva Respimat) 2 puff IH DAILY [facility] Last Admin: 07/15/19 10:11 Dose: 2 puff Tramadol HCl (Ultram -) 50 mg PO Q6H PRN PRN Reason: PAIN LEVEL 6-10 Last Admin: 07/14/19 22:23 Dose: 50 mg a/p MRSA skin abscesses vanco trough drawn this am during infusion! will repeat continue vancomycin multiple allergies copd
[2019-07-15] MEDS: traMADol HCL 50 MG TABLET PO PRN (18:02)
[2019-07-15] MEDS: ATORVASTATIN CA 10 MG TABLET (FP) PO SCH (21:45)
[2019-07-15] MEDS: AMITRIPTYLINE HCL 25 MG TABLET (FP) PO SCH (21:45)
[2019-07-15] MEDS: clonazePAM 0.5 MG TABLET PO PRN (21:45)
[2019-07-16] MEDS: glipiZIDE-XL 2.5 MG TAB.ER.24 PO SCH (06:17)
[2019-07-16] MEDS: VANCOMYCIN 1 GRAM (PRE-DOCKED) 1,000 MG/250 ML BAG IVPB SCH ×2 (06:17→19:06)
[2019-07-16] MEDS: INSULIN SLIDING SCALE (NOVOLOG) 1 VIAL SQ SCH ×2 (06:29→17:21)
[2019-07-16] MEDS ORDERED: INSULIN (NOVOLOG) ASPART 100 UNITS/ML 10ML VIAL ONE (06:47)
[2019-07-16] MEDS ORDERED: INSULIN (LEVEMIR) 100 UNITS/ML UNITS SQ ONE (06:47)
[2019-07-16] MEDS: APIXABAN 5 MG TABLET PO SCH ×2 (09:29→23:23)
[2019-07-16] MEDS: AZITHROMYCIN 250 MG TABLET PO SCH (09:29)
[2019-07-16] MEDS: FAMOTIDINE 20 MG TABLET PO SCH ×2 (09:29→23:23)
[2019-07-16] MEDS: ROFLUMILAST 500 MCG TABLET PO SCH (09:30)
[2019-07-16] MEDS: TIOTROPIUM BROMIDE 2.5 MCG (SPIRIVA) RESPIMAT INHALER IH SCH (09:30)
[2019-07-16] MEDS: BUDESONIDE/FORMETEROL FUMARATE 160/4.5 mcg INHALER IH SCH ×2 (09:30→23:25)
[2019-07-16] MEDS: traMADol HCL 50 MG TABLET PO PRN (12:53)
--- NOTE | 2019-07-16 12:59 | PN ---
Progress Note (short form) - Note Progress Note: decreased size swelling in left axilla, but very painful right leg swelling and wound better no sob Vital Signs - 24 hr 07/15/19 07/15/19 07/15/19 14:42 18:00 21:00 Temperature 98.2 F 97.9 F Pulse Rate 110 H 100 H Respiratory 18 18 18 Rate Blood Pressure 123/68 130/63 O2 Sat by Pulse 94 L Oximetry (%) 07/15/19 07/16/19 07/16/19 22:00 07:05 09:00 Temperature 97.9 F 98.4 F Pulse Rate 63 88 Respiratory 18 18 18 Rate Blood Pressure 124/63 116/65 O2 Sat by Pulse 94 L Oximetry (%) 07/16/19 10:00 Temperature 98.4 F Pulse Rate 94 H Respiratory 18 Rate Blood Pressure 132/60 O2 Sat by Pulse Oximetry (%) Current Medications Generic Name Dose Route Start Last Admin Trade Name Freq PRN Reason Stop Dose Admin Acetaminophen 650 mg 07/11/19 17:38 07/15/19 06:25 Tylenol - PO 650 mg Q6H PRN Administration FEVER Al Hydroxide/Mg Hydroxide 30 ml 07/11/19 17:34 07/14/19 11:30 Mylanta Oral Suspension - PO 30 ml Q8H PRN Administration INDIGESTION Amitriptyline HCl 50 mg 07/11/19 22:00 07/15/19 21:45 Elavil - PO 50 mg HS SANDEEP Administration Apixaban 5 mg 07/11/19 22:00 07/16/19 09:29 Eliquis - PO 5 mg BID SANDEEP Administration Atorvastatin Calcium 10 mg 07/11/19 22:00 07/15/19 21:45 Lipitor - PO 10 mg HS SANDEEP Administration Azithromycin 250 mg 07/12/19 10:00 07/16/19 09:29 Zithromax - PO 250 mg Q2D SANDEEP Administration Budesonide/Formoterol Fumarate 1 puff 07/11/19 22:00 07/16/19 09:30 Symbicort 160/4.5mcg - IH 1 puff BID SANDEEP Administration Clonazepam 0.5 mg 07/11/19 22:00 07/15/19 21:45 Klonopin - PO 0.5 mg BID PRN Administration ANXIETY Diltiazem HCl 300 mg 07/12/19 10:00 07/16/19 09:29 Cardizem Cd - PO 300 mg DAILY SANDEEP Administration Famotidine 20 mg 07/13/19 13:15 07/16/19 09:29 Pepcid - PO 20 mg BID SANDEEP Administration Glipizide 2.5 mg 07/15/19 07:00 07/16/19 06:17 Glucotrol Xl - PO 2.5 mg DAILY@0700 SANDEEP Administration Vancomycin HCl 1,000 mg in 250 mls @ 166.667 mls/hr 07/12/19 18:15 07/16/19 06:17 Vancomycin (Pre-Docked) IVPB 166.667 mls/hr Q12H SANDEEP Administration Protocol Insulin Aspart 1 vial 07/12/19 07:00 07/16/19 06:29 Novolog Vial Sliding Scale - SQ Not Given BIDAC [facility] Protocol Roflumilast 500 mcg 07/12/19 10:00 07/16/19 09:30 Daliresp PO 500 mcg DAILY SANDEEP Administration Tiotropium [place] 2 puff 07/12/19 10:00 07/16/19 09:30 Spiriva Respimat IH 2 puff DAILY SANDEEP Administration Tramadol HCl 50 mg 07/13/19 13:10 07/16/19 12:53 Ultram - PO 50 mg Q6H PRN Administration PAIN LEVEL 6-10 Laboratory Results - last 24 hr 07/15/19 07/15/19 07/16/19 16:38 17:00 06:28 POC Glucometer 154 145 Vancomycin Pre-Dose 14.7 L S1 S2 RRR Lungs decreased Abd- soft, NT left axilla-- swelling + tender +-- decreased size right leg-- cellulitis decreased plan IV vanco BID warm compresses Will consult with surgeon continue with meds restart Dm meds add hibiclens Problem List - Problems (1) Cellulitis of right leg Code(s): L03.115 - CELLULITIS OF RIGHT LOWER LIMB (2) Diabetes Code(s): E11.9 - TYPE 2 DIABETES MELLITUS WITHOUT COMPLICATIONS (3) MRSA (methicillin resistant Staphylococcus aureus) infection Code(s): A49.02 - METHICILLIN RESIS STAPH INFECTION, UNSP SITE (4) Abscess of axilla, left Code(s): L02.412 - CUTANEOUS ABSCESS OF LEFT AXILLA
[2019-07-16] MEDS ORDERED: traMADol HCL 50 MG TABLET PO PRN (16:14)
[2019-07-16] MEDS: AMITRIPTYLINE HCL 25 MG TABLET (FP) PO SCH (23:22)
[2019-07-16] MEDS: ATORVASTATIN CA 10 MG TABLET (FP) PO SCH (23:23)
[2019-07-16] MEDS: clonazePAM 0.5 MG TABLET PO PRN (23:35)
[2019-07-17] MEDS: VANCOMYCIN 1 GRAM (PRE-DOCKED) 1,000 MG/250 ML BAG IVPB SCH ×2 (06:06→17:46)
[2019-07-17] MEDS: glipiZIDE-XL 2.5 MG TAB.ER.24 PO SCH (06:20)
[2019-07-17] MEDS: INSULIN SLIDING SCALE (NOVOLOG) 1 VIAL SQ SCH ×2 (06:48→16:54)
[2019-07-17] MEDS: FAMOTIDINE 20 MG TABLET PO SCH ×2 (10:06→21:35)
[2019-07-17] MEDS: ROFLUMILAST 500 MCG TABLET PO SCH (10:06)
[2019-07-17] MEDS: APIXABAN 5 MG TABLET PO SCH ×2 (10:06→21:35)
[2019-07-17] MEDS: BUDESONIDE/FORMETEROL FUMARATE 160/4.5 mcg INHALER IH SCH ×2 (10:07→21:46)
[2019-07-17] MEDS: TIOTROPIUM BROMIDE 2.5 MCG (SPIRIVA) RESPIMAT INHALER IH SCH (10:07)
[2019-07-17 11:54] LABS: HEMATOCRIT 32.5 % (32.4-45.2); HEMOGLOBIN 9.7 GM/dL (10.7-15.3); MCH 22.5 pg (25.7-33.7); MCHC 29.7 g/dl (32.0-36.0); MEAN CELL VOLUME 75.6 fl (80-96); MEAN PLT VOLUME 7.3 fl (7.5-11.1); PLATELET COUNT 481 K/MM3 (134-434); RDW 21.4 % (11.6-15.6); WHITE BLOOD COUNT 11.2 K/mm3 (4.0-10.0)
[2019-07-17 12:19] LABS: BILIRUBIN,TOTAL 0.4 mg/dL (0.2-1); BLOOD UREA NITROGEN 6.5 mg/dL (7-18); CALCIUM 9.2 mg/dL (8.5-10.1); CREATININE 0.7 mg/dL (0.55-1.3); POTASSIUM 3.5 mmol/L (3.5-5.1); TOT PROT 5.9 g/dl (6.4-8.2)
--- NOTE | 2019-07-17 13:06 | PN ---
Progress Note (short form) - Note Progress Note: decreased size swelling in left axilla, but very painful right leg swelling and wound better no sob Vital Signs - 24 hr 07/16/19 07/16/19 07/16/19 15:06 18:46 21:00 Temperature 98.9 F 99.3 F Pulse Rate 95 H 95 H Respiratory 18 18 18 Rate Blood Pressure 110/56 L 127/69 O2 Sat by Pulse 94 L Oximetry (%) 07/16/19 07/17/19 07/17/19 22:00 06:00 09:00 Temperature 98.9 F 98.5 F Pulse Rate 88 91 H Respiratory 20 20 20 Rate Blood Pressure 120/62 120/64 O2 Sat by Pulse 99 Oximetry (%) 07/17/19 10:00 Temperature 98.4 F Pulse Rate 101 H Respiratory 20 Rate Blood Pressure 128/75 O2 Sat by Pulse Oximetry (%) Current Medications Generic Name Dose Route Start Last Admin Trade Name Freq PRN Reason Stop Dose Admin Acetaminophen 650 mg 07/11/19 17:38 07/15/19 06:25 Tylenol - PO 650 mg Q6H PRN Administration FEVER Al Hydroxide/Mg Hydroxide 30 ml 07/11/19 17:34 07/14/19 11:30 Mylanta Oral Suspension - PO 30 ml Q8H PRN Administration INDIGESTION Amitriptyline HCl 50 mg 07/11/19 22:00 07/16/19 23:22 Elavil - PO 50 mg HS SANDEEP Administration Apixaban 5 mg 07/11/19 22:00 07/17/19 10:06 Eliquis - PO 5 mg BID SANDEEP Administration Atorvastatin Calcium 10 mg 07/11/19 22:00 07/16/19 23:23 Lipitor - PO 10 mg HS SANDEEP Administration Azithromycin 250 mg 07/12/19 10:00 07/16/19 09:29 Zithromax - PO 250 mg Q2D SANDEEP Administration Budesonide/Formoterol Fumarate 1 puff 07/11/19 22:00 07/17/19 10:07 Symbicort 160/4.5mcg - IH 1 puff BID SANDEEP Administration Clonazepam 0.5 mg 07/16/19 16:18 07/16/19 23:35 Klonopin - PO 0.5 mg BID PRN Administration ANXIETY Diltiazem HCl 300 mg 07/12/19 10:00 07/17/19 10:06 Cardizem Cd - PO 300 mg DAILY SANDEEP Administration Famotidine 20 mg 07/13/19 13:15 07/17/19 10:06 Pepcid - PO 20 mg BID SANDEEP Administration Glipizide 2.5 mg 07/15/19 07:00 07/17/19 06:20 Glucotrol Xl - PO 2.5 mg DAILY@0700 SANDEEP Administration Vancomycin HCl 1,000 mg in 250 mls @ 166.667 mls/hr 07/12/19 18:15 07/17/19 06:06 Vancomycin (Pre-Docked) IVPB 166.667 mls/hr Q12H SANDEEP Administration Protocol Insulin Aspart 1 vial 07/12/19 07:00 07/17/19 06:48 Novolog Vial Sliding Scale - SQ Not Given BIDAC [facility] Protocol Roflumilast 500 mcg 07/12/19 10:00 07/17/19 10:06 Daliresp PO 500 mcg DAILY SANDEEP Administration Tiotropium [place] 2 puff 07/12/19 10:00 07/17/19 10:07 Spiriva Respimat IH 2 puff DAILY SANDEEP Administration Tramadol HCl 50 mg 07/16/19 16:14 Ultram - PO Q6H PRN PAIN LEVEL 6-10 Laboratory Results - last 24 hr 07/16/19 07/17/19 07/17/19 17:13 06:11 10:04 WBC RBC Hgb Hct MCV MCH MCHC RDW Plt Count MPV Sodium 141 Potassium 3.5 Chloride 106 Carbon Dioxide 29 Anion Gap 7 L BUN 6.5 L Creatinine 0.7 Est GFR (CKD-EPI)AfAm 109.91 Est GFR (CKD-EPI)NonAf 94.84 POC Glucometer 138 119 Random Glucose 93 Calcium 9.2 Total Bilirubin 0.4 AST 6 L ALT 16 Alkaline Phosphatase 108 Total Protein 5.9 L Albumin 3.0 L 07/17/19 11:15 WBC 11.2 H RBC 4.30 Hgb 9.7 L Hct 32.5 D MCV 75.6 L MCH 22.5 L MCHC 29.7 L RDW 21.4 H Plt Count 481 H D MPV 7.3 L Sodium Potassium Chloride Carbon Dioxide Anion Gap BUN Creatinine Est GFR (CKD-EPI)AfAm Est GFR (CKD-EPI)NonAf POC Glucometer Random Glucose Calcium Total Bilirubin AST ALT Alkaline Phosphatase Total Protein Albumin S1 S2 RRR Lungs decreased Abd- soft, NT left axilla-- swelling + tender +-- decreased size right leg-- cellulitis decreased, induration noted plan IV vanco BID per ID warm compresses surgical eval pending continue with meds monitor blood sugars add hibiclens Problem List - Problems (1) Cellulitis of right leg Code(s): L03.115 - CELLULITIS OF RIGHT LOWER LIMB (2) Diabetes Code(s): E11.9 - TYPE 2 DIABETES MELLITUS WITHOUT COMPLICATIONS (3) MRSA (methicillin resistant Staphylococcus aureus) infection Code(s): A49.02 - METHICILLIN RESIS STAPH INFECTION, UNSP SITE (4) Abscess of axilla, left Code(s): L02.412 - CUTANEOUS ABSCESS OF LEFT AXILLA
--- NOTE | 2019-07-17 15:18 | CONSULT ---
Consult Consult Specialty:: General Surgery Referred by:: Gen Amaya Reason for Consultation:: left axillary pain, swelling, ?abscess - History of Present Illness Chief Complaint: tender nodules under L axilla and on right leg History of Present Illness: 59yo F with HTN, HLD, DM, COPD, h/o DVT and PE on Eliquis, also h/o afib after clot, h/o recurrent MRSA skin abscesses, was recently hospitalized for respiratory issues, had cellulitis of leg with a painful, swollen nodule developed during that admission, and reports that it did not get better after discharge home, but got worse, so she came back. She recently finished a course of steroids as well, and had leukocytosis on readmission, which has improved. She is on Vancomycin IV, and she also has a tender nodule under left axilla, which has been improving, along with the leg lesion, on the antibiotics. Surgery was asked to assess. She is seen and examined in her bed, resting comfortably. She reports that both sites are less painful, except when touched, and that they were larger previously. No active drainage. No fever or chills. She is allergic to penicillin and sulfa, and the MRSA is only sensitive to a limited number of antibiotics (resistant to tetracycline), so there are very limited if any oral options for treatment. ID is following as well. She is currently taking her Eliquis. - History Source History Provided By: Patient, Medical Record Limitations to Obtaining History: No Limitations - Past Medical History Cardio/Vascular: Yes: AFIB, CAD, CHF, Deep Vein Thrombosis, HTN, Hyperlipdemia Pulmonary: Yes: Bronchitis, COPD, Pneumonia, Pulmonary Embolus (on Eliquis) Gastrointestinal: Yes: GERD, Other (HERNIA REPAIR WITH COMPLICATIONS AND POST OP SBO) ...LMP: 06/30/13 ...: No Psych: Yes: Anxiety Musculoskeletal: Yes: Osteoarthritis Endocrine: Yes: Diabetes Mellitus, Other - Past Surgical History Past Surgical History: Yes: Hernia Repair Additional Surgical History: SBO -> hernia repair revision - Alcohol/Substance Use Hx Alcohol Use: No History of Substance Use: reports: None - Smoking History Smoking history: Never smoked Have you smoked in the past 12 months: No If you are a former smoker, when did you quit?: 2013 - Social History ADL: Independent History of Recent Travel: No Home Medications - Allergies Allergies/Adverse Reactions: Allergies Allergy/AdvReac Type Severity Reaction Status Date / Time Penicillins Allergy Hives Verified 07/11/19 13:21 Sulfa (Sulfonamide Allergy Hives Verified 07/11/19 13:21 Antibiotics) [Sulfa(Sulfonamide Antibiotics)] - Home Medications Home Medications: Ambulatory Orders Apixaban [Eliquis] 5 mg PO BID 05/17/19 Atorvastatin Calcium [Lipitor] 10 mg PO HS 05/17/19 Cholecalciferol (Vitamin D3) [Vitamin D -] 2,000 unit PO DAILY 05/17/19 Cyanocobalamin [Vitamin B12 -] 1,000 mcg PO DAILY 05/17/19 Cyclosporine [Restasis] 1 each OS BID 05/17/19 Diltiazem Cd [Cardizem Cd -] 300 mg PO DAILY 05/17/19 Levalbuterol Tartrate [Xopenex Hfa] 1 puff IH BID PRN 05/17/19 [place]-3S/Dha/Epa/Fish Oil [Fish Oil 1,000 mg Softgel] 1 each PO DAILY 05/17/19 Roflumilast [Daliresp] 500 mcg PO DAILY 05/17/19 Tiotropium [place] [Spiriva] 18 mcg IH DAILY 05/17/19 clonazePAM [Klonopin -] 0.5 mg PO PRN PRN 05/17/19 Amitriptyline HCl [Elavil -] 50 mg PO HS tablet 05/21/19 Azithromycin 250 mg PO Q2D #60 tablet 06/18/19 Budesonide/Formeterol Fumarate [SYMBICORT 160/4.5mcg -] 1 inh PO BID 07/01/19 Famotidine [Pepcid -] 40 mg PO BID 07/01/19 Levalbuterol HCl [Xopenex] 0.63 mg IH RTID vial.neb. 07/07/19 Mag Hydrox/Al Hydrox/Simeth [Mylanta Oral Suspension -] 30 ml PO Q8H PRN cup Glipizide Xl 2.5 mg PO DAILY 07/17/19 Glipizide Xl [Glucotrol Xl -] 2.5 mg PO DAILY@0700 #14 tab.er.24 07/19/19 Vancomycin/0.9 % Sod Chloride [Vanco 1 Gram/250 ml-0.9% NaCl] 1 gm IV Q12H #14 plast..bag 07/19/19 Family Medical History Family History: Unremarkable (noncontributory) Review of Systems - Review of Systems Constitutional: denies: Chills, Fever Eyes: reports: Other (uses reading glasses). denies: Recent Change in Vision HENT: denies: Difficult Swallowing, Throat Pain Neck: denies: Swollen Glands, Tenderness Cardiovascular: denies: Chest Pain, Palpitations Respiratory: reports: SOB. denies: Cough Gastrointestinal: denies: Abdominal Pain, Constipation, Diarrhea, Nausea, Vomiting Genitourinary: denies: Burning, Dysuria Musculoskeletal: reports: Extremity Pain (some at right leg where healing lesion is). denies: Joint Pain Integumentary: reports: Lump (nodules as in hpi). denies: Change in Color, Rash Neurological: denies: Dizziness, Headache Psychiatric: reports: Anxiety Physical Exam Vital Signs: Vital Signs Temperature 98.6 F 07/17/19 14:54 Pulse Rate 108 H 07/17/19 14:54 Respiratory Rate 20 07/17/19 14:54 Blood Pressure 130/76 07/17/19 14:54 O2 Sat by Pulse Oximetry (%) 99 07/17/19 09:00 Constitutional: Yes: Well Nourished, No Distress, Calm Eyes: Yes: Conjunctiva Clear, EOM Intact HENT: Yes: Atraumatic, Normocephalic Neck: Yes: Supple, Trachea Midline Cardiovascular: Yes: Regular Rate and Rhythm (not currently irregular) Respiratory: Yes: Regular, CTA Bilaterally. No: Wheezes Gastrointestinal: Yes: Soft, Abdomen, Obese. No: Tenderness ...Rectal Exam: Yes: Deferred Renal/: No: CVA Tenderness - Left, CVA Tenderness - Right Musculoskeletal: No: Joint Stiffness, Joint Swelling Extremities: Yes: Other (right leg with small superficial flaking scab, easily flaked off, underlying site with slight residual nodular tender spot, but very small, no drainage or erythema - by pt report, much improved from prior). No: Cool, Cyanosis Edema: No Peripheral Pulses WNL: Yes Integumentary: Yes: Other (small tender nodule under left axilla, no significant erythema, no fluctuance, palpable in superficial/subcutaneous tissues only, only about 1cm or less diameter, no drainage, no surrounding induration - by pt report, is improved from prior). No: Jaundice, Rash Neurological: Yes: Alert, Oriented Psychiatric: Yes: Alert, Oriented Labs: CBC, BMP 07/17/19 11:15 07/17/19 10:04 CMP Sodium 141 mmol/L (136-145) 07/17/19 10:04 Potassium 3.5 mmol/L (3.5-5.1) 07/17/19 10:04 Chloride 106 mmol/L (98-107) 07/17/19 10:04 Carbon Dioxide 29 mmol/L (21-32) 07/17/19 10:04 Anion Gap 7 MMOL/L (8-16) L 07/17/19 10:04 BUN 6.5 mg/dL (7-18) L 07/17/19 10:04 Creatinine 0.7 mg/dL (0.55-1.3) 07/17/19 10:04 Est GFR (CKD-EPI)AfAm 109.91 07/17/19 10:04 Est GFR (CKD-EPI)NonAf 94.84 07/17/19 10:04 POC Glucometer 174 UNITS (80-120) 07/19/19 12:14 Random Glucose 93 mg/dL (74-106) 07/17/19 10:04 Calcium 9.2 mg/dL (8.5-10.1) 07/17/19 10:04 Total Bilirubin 0.4 mg/dL (0.2-1) 07/17/19 10:04 AST 6 U/L (15-37) L 07/17/19 10:04 ALT 16 U/L (13-61) 07/17/19 10:04 Alkaline Phosphatase 108 U/L (45-117) 07/17/19 10:04 Total Protein 5.9 g/dl (6.4-8.2) L 07/17/19 10:04 Albumin 3.0 g/dl (3.4-5.0) L 07/17/19 10:04 Microbiology 07/12/19 20:45 Blood - Peripheral Venous Blood Culture - Final NO GROWTH AFTER 5 DAYS INCUBATION 07/12/19 20:45 Blood - Peripheral Venous Blood Culture - Final NO GROWTH AFTER 5 DAYS INCUBATION 07/11/19 19:00 Cellulitis Gram Stain - Final 07/11/19 19:00 Cellulitis Wound Culture - Final Mr Landaverde Aureus Yeast Like Organism 07/12/19 05:43 Nares - Left Nares MRSA Screen - Final NO MRSA ISOLATED Imaging - Results Ultrasound: Report Reviewed (duplex negative for DVT) Problem List - Problems (1) Abscess of axilla, left Assessment/Plan: improving well on antibiotic treatment open drainage not indicated at this time would continue warm compresses to area periodically defer to ID for choice and duration of antibiotics, IV or PO consider MRSA decolonization, if possible will sign off - please re-call if area worsens or new lesions develop Thank you for the opportunity to participate in the care of this patient. will discuss with Dr. Amaya Code(s): L02.412 - CUTANEOUS ABSCESS OF LEFT AXILLA (2) Cellulitis of right leg Assessment/Plan: site essentially healed where nodule was no current cellulitis still slightly tender continue antibiotics per ID see above nothing to drain surgically Code(s): L03.115 - CELLULITIS OF RIGHT LOWER LIMB (3) MRSA (methicillin resistant Staphylococcus aureus) infection Code(s): A49.02 - METHICILLIN RESIS STAPH INFECTION, UNSP SITE (4) Diabetes mellitus with skin complication, without long-term current use of insulin Assessment/Plan: maintain tight glucose control A1C 6.4 in early April Code(s): E11.628 - TYPE 2 DIABETES MELLITUS WITH OTHER SKIN COMPLICATIONS Qualifiers: Diabetes mellitus type: type 2 Diabetes mellitus complication detail: with other skin complication Qualified Code(s): E11.628 - Type 2 diabetes mellitus with other skin complications (5) COPD (chronic obstructive pulmonary disease) Code(s): J44.9 - CHRONIC OBSTRUCTIVE PULMONARY DISEASE, UNSPECIFIED Qualifiers: COPD type: chronic bronchitis Chronic bronchitis type: unspecified Qualified Code(s): J42 - Unspecified chronic bronchitis (6) HTN (hypertension) Code(s): I10 - ESSENTIAL (PRIMARY) HYPERTENSION Qualifiers: Hypertension type: essential hypertension Qualified Code(s): I10 - Essential (primary) hypertension (7) Paroxysmal A-fib Assessment/Plan: if drainage needed in future, better to hold eliquis for a couple days if possible continue home meds now Code(s): I48.0 - PAROXYSMAL ATRIAL FIBRILLATION (8) H/O deep venous thrombosis Code(s): Z86.718 - PERSONAL HISTORY OF OTHER VENOUS THROMBOSIS AND EMBOLISM
--- NOTE | 2019-07-17 16:13 | PROC ---
Procedure Note Procedure: Called by patients RN for IV placement after multiple unsuccessful attempts made at peripheral line placement by multiple RNs. Patient in need of IV for antibiotics. Patient prepped using typical sterile fashion. 20 gauge peripheral IV placed into Left EJ. Line flushes easily with venous blood return and was irrigated with 15 mls NS. Line secured in place. Pt. tolerated procedure well. RN aware.
--- NOTE | 2019-07-17 16:23 | PN ---
Progress Note (short form) - Note Progress Note: clinicallly improving Vital Signs Period Temp Pulse Resp BP Sys/Jordan Pulse Ox Last 24 Hr 98.4 F-99.3 F 88-108 18-20 120-130/62-76 94-99 cor-rrr lungs clear abd soft,nt ext less induration right pretibial area, right axilla improved CBC, BMP 07/17/19 11:15 07/17/19 10:04 Microbiology 07/12/19 20:45 Blood - Peripheral Venous Blood Culture - Preliminary NO GROWTH OBTAINED AFTER 96 HOURS, INCUBATION TO CONTINUE FOR 1 DAYS. 07/12/19 20:45 Blood - Peripheral Venous Blood Culture - Preliminary NO GROWTH OBTAINED AFTER 96 HOURS, INCUBATION TO CONTINUE FOR 1 DAYS. 07/11/19 19:00 Cellulitis Gram Stain - Final 07/11/19 19:00 Cellulitis Wound Culture - Final S Aureus Yeast Like Organism 07/12/19 05:43 Nares - Left Nares MRSA Screen - Final NO MRSA ISOLATED a/p MRSA skin abscesses continue vancomycin no good po options, sulfa allergic, on antidepressants (no zyvox) if not resolved by Monday may need picc line for iv vancomycin at home multiple allergies copd would plan for MRSA decolonization with intranasal mupirocin and hibiclens bath at home
[2019-07-17 18:01] LABS: INR 1.31 (0.83-1.09); PROTHROMBIN TIME (PATIENT) 15.5 SEC (9.7-13.0)
[2019-07-17 18:03] LABS: ACTIVATED PTT 34.4 SECONDS (25.2-36.5)
[2019-07-17] MEDS ORDERED: INSULIN (NOVOLOG) ASPART 100 UNITS/ML 10ML VIAL ONE (19:07)
[2019-07-17] MEDS: clonazePAM 0.5 MG TABLET PO PRN (21:35)
[2019-07-17] MEDS: AMITRIPTYLINE HCL 25 MG TABLET (FP) PO SCH (21:35)
[2019-07-17] MEDS: ATORVASTATIN CA 10 MG TABLET (FP) PO SCH (21:35)
[2019-07-18] MEDS: VANCOMYCIN 1 GRAM (PRE-DOCKED) 1,000 MG/250 ML BAG IVPB SCH ×2 (05:49→18:57)
[2019-07-18] MEDS: glipiZIDE-XL 2.5 MG TAB.ER.24 PO SCH (06:45)
[2019-07-18] MEDS: INSULIN SLIDING SCALE (NOVOLOG) 1 VIAL SQ SCH ×2 (06:50→17:44)
[2019-07-18] MEDS ORDERED: PT OWN MED DRAWER 7, Y5N ONE (10:24)
[2019-07-18] MEDS: APIXABAN 5 MG TABLET PO SCH ×2 (10:34→22:16)
[2019-07-18] MEDS: clonazePAM 0.5 MG TABLET PO PRN ×2 (10:35→22:15)
[2019-07-18] MEDS: AZITHROMYCIN 250 MG TABLET PO SCH (10:35)
[2019-07-18] MEDS: FAMOTIDINE 20 MG TABLET PO SCH ×2 (10:35→22:16)
[2019-07-18] MEDS: TIOTROPIUM BROMIDE 2.5 MCG (SPIRIVA) RESPIMAT INHALER IH SCH (10:36)
[2019-07-18] MEDS: BUDESONIDE/FORMETEROL FUMARATE 160/4.5 mcg INHALER IH SCH ×2 (10:36→22:18)
[2019-07-18] MEDS: ROFLUMILAST 500 MCG TABLET PO SCH (10:36)
--- NOTE | 2019-07-18 11:35 | PN ---
Progress Note (short form) - Note Progress Note: decreased size swelling in left axilla, not very panful today right leg swelling and wound better no sob Vital Signs - 24 hr 07/17/19 07/17/19 07/18/19 21:00 21:21 10:00 Temperature 98.5 F Pulse Rate 108 H 88 Respiratory 17 17 20 Rate Blood Pressure 142/82 138/68 O2 Sat by Pulse 98 Oximetry (%) 07/18/19 07/18/19 14:32 18:16 Temperature 98.2 F 98.8 F Pulse Rate 91 H 98 H Respiratory 20 18 Rate Blood Pressure 131/66 106/67 O2 Sat by Pulse Oximetry (%) Current Medications Generic Name Dose Route Start Last Admin Trade Name Freq PRN Reason Stop Dose Admin Acetaminophen 650 mg 07/11/19 17:38 07/15/19 06:25 Tylenol - PO 650 mg Q6H PRN Administration FEVER Al Hydroxide/Mg Hydroxide 30 ml 07/11/19 17:34 07/14/19 11:30 Mylanta Oral Suspension - PO 30 ml Q8H PRN Administration INDIGESTION Amitriptyline HCl 50 mg 07/11/19 22:00 07/17/19 21:35 Elavil - PO 50 mg HS SANDEEP Administration Apixaban 5 mg 07/11/19 22:00 07/18/19 10:34 Eliquis - PO 5 mg BID SANDEEP Administration Atorvastatin Calcium 10 mg 07/11/19 22:00 07/17/19 21:35 Lipitor - PO 10 mg HS SANDEEP Administration Azithromycin 250 mg 07/12/19 10:00 07/18/19 10:35 Zithromax - PO 250 mg Q2D SANDEEP Administration Budesonide/Formoterol Fumarate 1 puff 07/11/19 22:00 07/18/19 10:36 Symbicort 160/4.5mcg - IH 1 puff BID SANDEEP Administration Clonazepam 0.5 mg 07/16/19 16:18 07/18/19 10:35 Klonopin - PO 0.5 mg BID PRN Administration ANXIETY Diltiazem HCl 300 mg 07/12/19 10:00 07/18/19 10:36 Cardizem Cd - PO 300 mg DAILY SANDEEP Administration Famotidine 20 mg 07/13/19 13:15 07/18/19 10:35 Pepcid - PO 20 mg BID SANDEEP Administration Glipizide 2.5 mg 07/15/19 07:00 07/18/19 06:45 Glucotrol Xl - PO 2.5 mg DAILY@0700 SANDEEP Administration Vancomycin HCl 1,000 mg in 250 mls @ 166.667 mls/hr 07/12/19 18:15 07/18/19 05:49 Vancomycin (Pre-Docked) IVPB 166.667 mls/hr Q12H SANDEEP Administration Protocol Insulin Aspart 1 vial 07/12/19 07:00 07/18/19 17:44 Novolog Vial Sliding Scale - SQ 2 units BIDAC SANDEEP Administration Protocol Mupirocin 1 applic 07/18/19 11:45 Bactroban Ointment (For Decolonization) - NS 07/23/19 11:44 BID SANDEEP Roflumilast 500 mcg 07/12/19 10:00 07/18/19 10:36 Daliresp PO 500 mcg DAILY SANDEEP Administration Tiotropium [place] 2 puff 07/12/19 10:00 07/18/19 10:36 Spiriva Respimat IH 2 puff DAILY SANDEEP Administration Tramadol HCl 50 mg 07/16/19 16:14 07/18/19 10:35 Ultram - PO 50 mg Q6H PRN Administration PAIN LEVEL 6-10 Laboratory Results - last 24 hr 07/17/19 07/18/19 07/18/19 21:44 06:47 17:39 POC Glucometer 124 130 190 S1 S2 RRR Lungs decreased Abd- soft, NT left axilla-- swelling + tender +-- decreased size right leg-- cellulitis decreased, induration noted plan IV vanco BID per ID warm compresses surgical eval noted clinically better continue with meds monitor blood sugars add hibiclens Problem List - Problems (1) Cellulitis of right leg Code(s): L03.115 - CELLULITIS OF RIGHT LOWER LIMB (2) Diabetes Code(s): E11.9 - TYPE 2 DIABETES MELLITUS WITHOUT COMPLICATIONS (3) MRSA (methicillin resistant Staphylococcus aureus) infection Code(s): A49.02 - METHICILLIN RESIS STAPH INFECTION, UNSP SITE (4) Abscess of axilla, left Code(s): L02.412 - CUTANEOUS ABSCESS OF LEFT AXILLA
[2019-07-18] MEDS ORDERED: MUPIROCIN 2% TOPICAL OINTMENT FOR DECOLONIZATION NS SCH (11:45)
[2019-07-18] MEDS: AMITRIPTYLINE HCL 25 MG TABLET (FP) PO SCH (22:15)
[2019-07-18] MEDS: ATORVASTATIN CA 10 MG TABLET (FP) PO SCH (22:16)
[2019-07-19] MEDS: VANCOMYCIN 1 GRAM (PRE-DOCKED) 1,000 MG/250 ML BAG IVPB SCH (07:10)
[2019-07-19] MEDS: glipiZIDE-XL 2.5 MG TAB.ER.24 PO SCH (07:10)
[2019-07-19] MEDS: INSULIN SLIDING SCALE (NOVOLOG) 1 VIAL SQ SCH (07:42)
[2019-07-19] MEDS: APIXABAN 5 MG TABLET PO SCH (10:49)
[2019-07-19] MEDS: FAMOTIDINE 20 MG TABLET PO SCH (10:49)
[2019-07-19] MEDS: ACETAMINOPHEN 325 MG TABLET (FP) PO PRN (10:49)
[2019-07-19] MEDS ORDERED: PT OWN MED DRAWER 7, Y5N ONE (11:10)
[2019-07-19] MEDS: ROFLUMILAST 500 MCG TABLET PO SCH (11:18)
[2019-07-19] MEDS: TIOTROPIUM BROMIDE 2.5 MCG (SPIRIVA) RESPIMAT INHALER IH SCH (11:18)
[2019-07-19] MEDS: BUDESONIDE/FORMETEROL FUMARATE 160/4.5 mcg INHALER IH SCH (11:18)
--- NOTE | 2019-07-19 11:27 | PN ---
Progress Note (short form) - Note Progress Note: no complaints Vital Signs Period Temp Pulse Resp BP Sys/Jordan Pulse Ox Last 24 Hr 97.9 F-98.8 F 76-98 17-20 106-156/65-78 99-99 cor-rrr lungs clear abd soft,nt left axillary nodule batch or continuous still operator but smaller indurated area left pretibia unchanged- tender, no drainage CBC, BMP 07/17/19 11:15 07/17/19 10:04 Microbiology 07/12/19 20:45 Blood - Peripheral Venous Blood Culture - Final NO GROWTH AFTER 5 DAYS INCUBATION 07/12/19 20:45 Blood - Peripheral Venous Blood Culture - Final NO GROWTH AFTER 5 DAYS INCUBATION 07/11/19 19:00 Cellulitis Gram Stain - Final 07/11/19 19:00 Cellulitis Wound Culture - Final Mr S Aureus Yeast Like Organism 07/12/19 05:43 Nares - Left Nares MRSA Screen - Final NO MRSA ISOLATED a/p MRSA skin abscesses continue vancomycin no good po options, sulfa allergic, on antidepressants (no zyvox) plan for iv vancomycin 1 g bid for 7 days at home via picc line patient agreeable multiple allergies copd would plan for MRSA decolonization with intranasal mupirocin and chlorhiexidene bath at home after she completes the iv antibiotics with nasal mupirocin 2% bid for 10 days, chlorhexidine daily shower for 2 weeks d/w PMD
--- NOTE | 2019-07-19 12:16 | DS ---
Physical Examination Vital Signs: Vital Signs Temperature 98.2 F 07/19/19 10:00 Pulse Rate 76 07/19/19 10:00 Respiratory Rate 18 07/19/19 10:00 Blood Pressure 156/78 07/19/19 10:00 O2 Sat by Pulse Oximetry (%) 99 07/19/19 09:00 Constitutional: Yes: No Distress, Calm Cardiovascular: Yes: Regular Rate and Rhythm Respiratory: Yes: CTA Bilaterally Gastrointestinal: Yes: Normal Bowel Sounds, Soft. No: Tenderness Musculoskeletal: Yes: Other (left axilla swelling and tenderness+ -- decraesed in size) Edema: No Labs: CBC, BMP 07/17/19 11:15 07/17/19 10:04 Discharge Summary Problems reviewed: Yes Reason For Visit: CELLULITIS OF RIGHT LOWER EXTREMITY Current Active Problems Cellulitis of right leg (Acute) Diabetes (Acute) MRSA (methicillin resistant Staphylococcus aureus) infection (Acute) Hospital Course: Admitted for right leg recurrent cellulitis Seen by ID started on Iv vanco during course of hospital stay-- she developed left axilla abscess-- started warm compresses and continued antibiotics treatment Seen by Surgeon-- abscess is small to do I and D Blood cultures negative wound culture positive MRSA needs 7 days more of Vanco q12h Plan of Treatment: VANCO IV q12h x 7 days more via picc line-- she will follow up with me in the office in 1 week prior to removing picc line to see if we can discontinue the medication or continue for few days more. would plan for MRSA decolonization with intranasal mupirocin and chlorhiexidene bath at home after she completes the iv antibiotics with nasal mupirocin 2% bid for 10 days, chlorhexidine daily shower for 2 weeks Condition: Stable - Instructions Referrals: Cristal Ludwig MD [Primary Care Provider] - Disposition: HOME - Home Medications Comprehensive Discharge Medication List: Ambulatory Orders Apixaban [Eliquis] 5 mg PO BID 05/17/19 Atorvastatin Calcium [Lipitor] 10 mg PO HS 05/17/19 Cholecalciferol (Vitamin D3) [Vitamin D -] 2,000 unit PO DAILY 05/17/19 Cyanocobalamin [Vitamin B12 -] 1,000 mcg PO DAILY 05/17/19 Cyclosporine [Restasis] 1 each OS BID 05/17/19 Diltiazem Cd [Cardizem Cd -] 300 mg PO DAILY 05/17/19 Levalbuterol Tartrate [Xopenex Hfa] 1 puff IH BID PRN 05/17/19 [place]-3S/Dha/Epa/Fish Oil [Fish Oil 1,000 mg Softgel] 1 each PO DAILY 05/17/19 Roflumilast [Daliresp] 500 mcg PO DAILY 05/17/19 Tiotropium [place] [Spiriva] 18 mcg IH DAILY 05/17/19 clonazePAM [Klonopin -] 0.5 mg PO PRN PRN 05/17/19 Amitriptyline HCl [Elavil -] 50 mg PO HS tablet 05/21/19 Azithromycin 250 mg PO Q2D #60 tablet 06/18/19 Budesonide/Formeterol Fumarate [SYMBICORT 160/4.5mcg -] 1 inh PO BID 07/01/19 Famotidine [Pepcid -] 40 mg PO BID 07/01/19 Levalbuterol HCl [Xopenex] 0.63 mg IH RTID vial.neb. 07/07/19 Mag Hydrox/Al Hydrox/Simeth [Mylanta Oral Suspension -] 30 ml PO Q8H PRN cup Glipizide Xl 2.5 mg PO DAILY 07/17/19 Glipizide Xl [Glucotrol Xl -] 2.5 mg PO DAILY@0700 #14 tab.er.24 07/19/19 Vancomycin/0.9 % Sod Chloride [Vanco 1 Gram/250 ml-0.9% NaCl] 1 gm IV Q12H #14 plast..bag 07/19/19
[2019-07-19 13:56] VITALS: BP 136/82; PULSE 110; TEMP 97.5
== END 2019-07-19 17:38 | disposition home or self-care (01) | DRG 603 ==
LOC: JER 13:15 → JERBED 15:16 → OBSVTOIN 07-12 12:44 → J7W 07-12 21:51
PROVIDERS: ADMIT Internal Medicine; ATTEND Internal Medicine
PROC: 05HQ33Z Insertion of Infusion Device into Left External Jugular Vein, Percutaneous Approach (ICD-10-PCS; principal; 2019-07-17)
PROC: B514ZZA Fluoroscopy of Left Jugular Veins, Guidance (ICD-10-PCS; 2019-07-17)
PROC: 02HV33Z Insertion of Infusion Device into Superior Vena Cava, Percutaneous Approach (ICD-10-PCS; 2019-07-19)
PROC: B518ZZA Fluoroscopy of Superior Vena Cava, Guidance (ICD-10-PCS; 2019-07-19)
DX: L03.115 Cellulitis of right lower limb (principal); L02.412 Cutaneous abscess of left axilla; E11.9 Type 2 diabetes mellitus without complications; J44.9 Chronic obstructive pulmonary disease, unspecified; I48.0 Paroxysmal atrial fibrillation; A49.02 Methicillin resistant Staphylococcus aureus infection, unspecified site; E78.5 Hyperlipidemia, unspecified; F41.9 Anxiety disorder, unspecified; I25.10 Atherosclerotic heart disease of native coronary artery without angina pectoris; K21.9 Gastro-esophageal reflux disease without esophagitis; E53.8 Deficiency of other specified B group vitamins; I11.0 Hypertensive heart disease with heart failure; I50.9 Heart failure, unspecified; Z86.711 Personal history of pulmonary embolism; Z86.718 Personal history of other venous thrombosis and embolism
CPT/HCPCS: 36415; 36569; 77001-TC-FY; 80048; 80053; 82962; 85025; 85027; 85610; 85730; 87040; 87070; 87081; 87186; 87205; 93970-TC; 99285-25; C1751; G0378; G0480; J0131

== ENCOUNTER 2019-07-24 01:15 | Inpatient (IN) | payer OTHER, BC ==
--- NOTE | 2019-07-24 01:32 | PDOC ---
History of Present Illness - General Stated Complaint: HEADACHE Time Seen by Provider: 07/24/19 01:31 - History of Present Illness Initial Comments: 07/24/19 01:49 The patient is a 59 year old female with a history of HTN, HLD, DM, Afib on eliquis who presents for evaluation of headache. The patient was recently discharged from the hospital 6 days ago after being treated for a MRSA cellulitis. She has been on home vancomycin through a picc line since discharge. She states that 3 days ago, she developed a gradual onset right sided throbbing headache that has been persistent despite tylenol and tramadol at home prompting her presentation to the ED for further evaluation. She reports 1 episode of non-bilious, non-bloody emesis today but otherwise denies fevers, chills, neck pain, SOB, chest pain, nausea, abdominal pain, numbness, tingling, weakness, or changes with urination or bowel movements. Past History - Past Medical History Allergies/Adverse Reactions: Allergies Allergy/AdvReac Type Severity Reaction Status Date / Time Penicillins Allergy Hives Verified 07/11/19 13:21 Sulfa (Sulfonamide Allergy Hives Verified 07/11/19 13:21 Antibiotics) [Sulfa(Sulfonamide Antibiotics)] Home Medications: Ambulatory Orders Apixaban [Eliquis] 5 mg PO BID 05/17/19 Atorvastatin Calcium [Lipitor] 10 mg PO HS 05/17/19 Cholecalciferol (Vitamin D3) [Vitamin D -] 2,000 unit PO DAILY 05/17/19 Cyanocobalamin [Vitamin B12 -] 1,000 mcg PO DAILY 05/17/19 Cyclosporine [Restasis] 1 each OS BID 05/17/19 Diltiazem Cd [Cardizem Cd -] 300 mg PO DAILY 05/17/19 Levalbuterol Tartrate [Xopenex Hfa] 1 puff IH BID PRN 05/17/19 [place]-3S/Dha/Epa/Fish Oil [Fish Oil 1,000 mg Softgel] 1 each PO DAILY 05/17/19 Roflumilast [Daliresp] 500 mcg PO DAILY 05/17/19 Tiotropium [place] [Spiriva] 18 mcg IH DAILY 05/17/19 clonazePAM [Klonopin -] 0.5 mg PO PRN PRN 05/17/19 Amitriptyline HCl [Elavil -] 50 mg PO HS tablet 05/21/19 Azithromycin 250 mg PO Q2D #60 tablet 06/18/19 Budesonide/Formeterol Fumarate [SYMBICORT 160/4.5mcg -] 1 inh PO BID 07/01/19 Famotidine [Pepcid -] 40 mg PO BID 07/01/19 Levalbuterol HCl [Xopenex] 0.63 mg IH RTID vial.neb. 07/07/19 Mag Hydrox/Al Hydrox/Simeth [Mylanta Oral Suspension -] 30 ml PO Q8H PRN cup Glipizide Xl 2.5 mg PO DAILY 07/17/19 Glipizide Xl [Glucotrol Xl -] 2.5 mg PO DAILY@0700 #14 tab.er.24 07/19/19 Vancomycin/0.9 % Sod Chloride [Vanco 1 Gram/250 ml-0.9% NaCl] 1 gm IV Q12H #14 plast..bag 07/19/19 Anemia: No Asthma: Yes Cancer: No Cardiac Disorders: Yes (Tachycardia, a-fib) CVA: No COPD: Yes CHF: No DVT: No Dementia: No Diabetes: Yes GI Disorders: Yes (GERD) Disorders: No HTN: Yes Hypercholesterolemia: Yes Liver Disease: No Seizures: No Thyroid Disease: Yes (NODULES) - Surgical History Abdominal Surgery: Yes (POLYP REMOVED FROM UTERUS 09/06/13) Appendectomy: No Cardiac Surgery: No Cholecystectomy: No GI Surgery: Yes (umbilical hernia/wound vac) Lung Surgery: No Neurologic Surgery: No Orthopedic Surgery: Yes (BUNION REMOVAL RT FOOT 2013) - Immunization History Immunization Up to Date: Yes - Psycho Social/Smoking Cessation Hx Smoking Status: Yes Smoking History: Never smoked Have you smoked in the past 12 months: No Number of Cigarettes Smoked Daily: 0 If you are a former smoker, when did you quit?: 2012 'Breaking Loose' booklet given: 10/28/13 Hx Alcohol Use: No Drug/Substance Use Hx: No Substance Use Type: None Hx Substance Use Treatment: No Review of Systems - Review of Systems Comments:: 07/24/19 01:52 Constitutional: No fevers, chills, fatigue, malaise HEENT: No Rhinorrhea, nasal congestion, visual changes Cardiovascular: No chest pain, syncope, palpitations, lightheadedness Respiratory: No Cough, SOB, Hemoptysis, Gastrointestinal: No Abdominal pain, Nausea, Vomiting, Constipation, Diarrhea, Melena Genitourinary: No Dysuria, Frequency, Urgency, Hesitancy, Hematuria, Flank pain Musculoskeletal: No Myalgia, arthralgia Skin: No rashes, itching, bruising, pallor Neurologic: Headache. No Dizziness, Numbness, Weakness, or Tingling Psychiatric: No Hallucinations. No SI or HI *Physical Exam - Physical Exam 07/24/19 01:55 General Appearance: Nourished. No Apparent Distress HEENT: EOMI, EMMY. No Pharyngeal Erythema, Tonsillar Exudate, Tonsillar Erythema Neck: No Cervical Lymphadenopathy Respiratory/Chest: Lungs Clear, Normal Breath Sounds. No Crackles, Rales, Rhonchi, Wheezing Cardiovascular: Regular Rhythm, Regular Rate. No Murmur, Gallops, Rubs Gastrointestinal/Abdominal: Normal Bowel Sounds, Soft. No Guarding, Rebound, Tenderness Musculoskeletal: No CVA Tenderness Extremity: Normal Capillary Refill Integumentary: Normal Color, Dry, Warm Neurologic: technology applications engineer II-XII NML intact, Fully Oriented, Alert, Normal Mood/Affect, Normal Response, Motor Strength 5/5. ED Treatment Course - LABORATORY CBC & Chemistry Diagram: 07/24/19 04:17 07/24/19 04:17 Medical Decision Making - Medical Decision Making 07/24/19 01:57 The patient is a 59 year old female with a history of HTN, HLD, DM, Afib on eliquis who presents for evaluation of headache. Given the patient's history and physical exam, we will obtain a cbc, cmp, coags, head CT to evaluate further. We will treat with iv fluids, tylenol, benadryl, reglan and continue to monitor and reassess while here in the ED. 07/24/19 05:23 CMP coags are unremarkable. Head CT demonstrated no acute pathology as preliminarily read by our ignition expert radiologist. The patient continues to report severe headache despite medications here in the ED. She will require admission for further management and monitoring given her intractable headache. Discharge - Discharge Information Problems reviewed: Yes Clinical Impression/Diagnosis: Headache Qualifiers: Headache type: unspecified Headache chronicity pattern: acute headache Intractability: intractable Qualified Code(s): R51 - Headache Condition: Stable - Admission Yes - Follow up/Referral Referrals: Cristal Ludwig MD [Primary Care Provider] - - Patient Discharge Instructions - Post Discharge Activity
[2019-07-24] MEDS ORDERED: METOCLOPRAMIDE HCL INJECTION 10 MG/2 ML VIAL IVPUSH ONE (01:37)
[2019-07-24] MEDS ORDERED: ACETAMINOPHEN 1000 MG/100 ML VIAL (NON FORMULARY) IVPB ONE (01:37)
[2019-07-24] MEDS ORDERED: SODIUM CHLORIDE 1,000 ML IV STA (01:39)
[2019-07-24] MEDS ORDERED: METOCLOPRAMIDE HCL INJECTION 10 MG/2 ML VIAL ONE (02:19)
[2019-07-24] MEDS ORDERED: ACETAMINOPHEN INJECTION 100 ML IVPB ONE (02:20)
--- NOTE | 2019-07-24 03:59 | PDOC ---
Attending Attestation - Resident Resident Name: Christoph Sanchez - ED Attending Attestation I have performed the following: I have examined & evaluated the patient, The case was reviewed & discussed with the resident, I agree w/resident's findings & plan - HPI HPI: 07/24/19 03:58 see resident hpi - Physicial Exam PE: 07/24/19 03:58 agree with resident exam - Medical Decision Making 07/24/19 03:58 59-year-old female with complaints of severe headache Plan for CT scan of the brain, labs Unfortunately patient is on Eliquis and cannot safely undergo lumbar puncture She is persistently complaining of pain despite Reglan Benadryl fluid and Tylenol She will be admitted to medical service for intractable headache and further management
[2019-07-24 04:47] LABS: INR 1.59 (0.83-1.09); PROTHROMBIN TIME (PATIENT) 18.8 SEC (9.7-13.0)
[2019-07-24 04:48] LABS: ALBUMIN 2.6 g/dl (3.4-5.0); BILIRUBIN,TOTAL 0.4 mg/dL (0.2-1); BLOOD UREA NITROGEN 9.2 mg/dL (7-18); CALCIUM 8.4 mg/dL (8.5-10.1); CREATININE 0.6 mg/dL (0.55-1.3)
--- NOTE | 2019-07-24 05:30 | HP ---
CHIEF COMPLAINT: severe headache for the past 3 days PCP: Dr. Cristal Amaya HISTORY OF PRESENT ILLNESS 59 year old obese female with a history of hypertension, hyperlipidemia, diabetes mellitus, atrial fibrrilation on eliquis and uviitis who presents for evaluation of severe headache which started 3 days ago. She was discharged from the hospital 6 days ago after being treated for a MRSA cellulitis. She has been on home IV Vancomycin through a PICC line since discharge and as reported was supposed to finish treatment this Monday. She states that 3 days ago, she developed a gradual onset of a right sided throbbing headache that has been persistent despite taking tylenol and tramadol at home prompting her presentation to the ED for further evaluation. She reports 1 episode of non- bloody emesis today but otherwise denies fevers, chills, neck pain, SOB, chest pain, nausea, abdominal pain, numbness, tingling, weakness, or changes with urination or bowel movements.She reported she has a history of uviitis to her right eye and relates her headache to this. ER course was notable for: (1) CT scan of head unremarkable , (2) Received Tylenol, benadryl, reglan and IV fluids with no relief. (3) Systolic blood pressure in the 130's (4) Hypokalemia- repleted (5) LP to exclude menigitis unable to do as patient is on eliquis Recent Travel: denies PAST MEDICAL HISTORY: hyperlipidemia diabetes mellitus atrial fibrillation uviitis PAST SURGICAL HISTORY: denies Social History: Smoking:no Alcohol:no Drugs: no Allergies Penicillins Allergy (Verified 07/11/19 13:21) Hives Sulfa (Sulfonamide Antibiotics) [Sulfa(Sulfonamide Antibiotics)] Allergy ( Verified 07/11/19 13:21) Hives HOME MEDICATIONS: Home Medications Medication Instructions Recorded Apixaban [Eliquis] 5 mg PO BID 05/17/19 Atorvastatin Calcium [Lipitor] 10 mg PO HS 05/17/19 Cholecalciferol (Vitamin D3) 2,000 unit PO DAILY 05/17/19 [Vitamin D -] Cyanocobalamin [Vitamin B12 -] 1,000 mcg PO DAILY 05/17/19 Cyclosporine [Restasis] 1 each OS BID 05/17/19 Diltiazem Cd [Cardizem Cd -] 300 mg PO DAILY 05/17/19 Levalbuterol Tartrate [Xopenex Hfa] 1 puff IH BID PRN 05/17/19 [place]-3S/Dha/Epa/Fish Oil [Fish 1 each PO DAILY 05/17/19 Oil 1,000 mg Softgel] Roflumilast [Daliresp] 500 mcg PO DAILY 05/17/19 Tiotropium [place] [Spiriva] 18 mcg IH DAILY 05/17/19 clonazePAM [Klonopin -] 0.5 mg PO PRN PRN 05/17/19 Amitriptyline HCl [Elavil -] 50 mg PO HS tablet 05/21/19 Azithromycin 250 mg PO Q2D #60 tablet 06/18/19 Budesonide/Formeterol Fumarate 1 inh PO BID 07/01/19 [SYMBICORT 160/4.5mcg -] Famotidine [Pepcid -] 40 mg PO BID 07/01/19 Levalbuterol HCl [Xopenex] 0.63 mg IH RTID vial.neb. 07/07/19 Mag Hydrox/Al Hydrox/Simeth 30 ml PO Q8H PRN cup 07/07/19 [Mylanta Oral Suspension -] Glipizide Xl 2.5 mg PO DAILY 07/17/19 Glipizide Xl [Glucotrol Xl -] 2.5 mg PO DAILY@0700 #14 tab.er.24 07/19/19 Vancomycin/0.9 % Sod Chloride 1 gm IV Q12H #14 plast..bag 07/19/19 [Vanco 1 Gram/250 ml-0.9% NaCl] REVIEW OF SYSTEMS CONSTITUTIONAL: Absent: fever, chills, diaphoresis, generalized weakness, malaise, loss of appetite, weight change HEENT: Absent: rhinorrhea, nasal congestion, throat pain, throat swelling, difficulty swallowing, mouth swelling, ear pain, right eye pain, visual changes CARDIOVASCULAR: Absent: chest pain, syncope, palpitations, irregular heart rate, lightheadedness , peripheral edema RESPIRATORY: Absent: cough, shortness of breath, dyspnea with exertion, orthopnea, wheezing, stridor, hemoptysis GASTROINTESTINAL: Absent: abdominal pain, abdominal distension, nausea, vomiting, diarrhea, constipation, melena, hematochezia GENITOURINARY: Absent: dysuria, frequency, urgency, hesitancy, hematuria, flank pain, genital pain MUSCULOSKELETAL: Absent: myalgia, arthralgia, joint swelling, back pain, neck pain SKIN: Absent: rash, itching, pallor HEMATOLOGIC/IMMUNOLOGIC: Absent: easy bleeding, easy bruising, lymphadenopathy, frequent infections ENDOCRINE: Absent: unexplained weight gain, unexplained weight loss, heat intolerance, cold intolerance NEUROLOGIC: Absent: headache, focal weakness or paresthesias, dizziness, unsteady gait, seizure, mental status changes, bladder or bowel incontinence PSYCHIATRIC: Absent: anxiety, depression, suicidal or homicidal ideation, hallucinations. PHYSICAL EXAMINATION Vital Signs - 24 hr 07/24/19 02:00 Temperature 97.8 F Pulse Rate 103 H Respiratory 18 Rate Blood Pressure 131/69 O2 Sat by Pulse 87 L Oximetry (%) GENERAL: awake alert and fully oriented patient appears to be in pain HEAD: normal EYES: pupils equal, round and reactive to light, extraocular movements intact EARS, NOSE, THROAT: ears normal, nares patent, oropharynx clear without exudates NECK: normal LUNGS: breath sounds equal clear to auscultation bilaterally no wheezes no crackles no accessory muscle use HEART:rate tachycardic and rhythm normal S1 and S2 present ABDOMEN: soft nontender not distended normoactive bowel sounds MUSCULOSKELETAL: normal range of motion UPPER EXTREMITIES: 2+ pulses warm well-perfused LOWER EXTREMITIES: 2+ pulses warm well-perfused no edema NEUROLOGICAL: cranial nerves II-XII intact normal speech no facial droop or grimace moving upper and lower extremities PSYCHIATRIC:cooperative good eye contact appropriate mood and affect SKIN: warm dry normal turgor no rashes or lesions Laboratory Results - last 24 hr 07/24/19 07/24/19 07/24/19 04:17 04:17 04:17 WBC Cancelled Corrected WBC (auto) Cancelled RBC Cancelled Hgb Cancelled Hct Cancelled MCV Cancelled MCH Cancelled MCHC Cancelled RDW Cancelled Plt Count Cancelled MPV Cancelled Absolute Neuts (auto) Cancelled Absolute Lymphs (auto) Cancelled Absolute Monos (auto) Cancelled Absolute Eos (auto) Cancelled Absolute Basos (auto) Cancelled Add Manual Diff Cancelled Neutrophils % Cancelled Lymphocytes % Cancelled Monocytes % Cancelled Eosinophils % Cancelled Basophils % Cancelled Nucleated RBC % Cancelled Platelet Estimate Cancelled Platelet Comment Cancelled Normal RBC Morphology Cancelled PT with INR INR PTT (Actin FS) 32.0 Sodium 143 Potassium 3.0 L Chloride 108 H Carbon Dioxide 26 Anion Gap 9 BUN 9.2 Creatinine 0.6 Est GFR (CKD-EPI)AfAm 115.63 Est GFR (CKD-EPI)NonAf 99.77 Random Glucose 155 H Calcium 8.4 L Total Bilirubin 0.4 AST 11 L ALT 12 L Alkaline Phosphatase 99 Total Protein 5.0 L Albumin 2.6 L 07/24/19 04:17 WBC Corrected WBC (auto) RBC Hgb Hct MCV MCH MCHC RDW Plt Count MPV Absolute Neuts (auto) Absolute Lymphs (auto) Absolute Monos (auto) Absolute Eos (auto) Absolute Basos (auto) Add Manual Diff Neutrophils % Lymphocytes % Monocytes % Eosinophils % Basophils % Nucleated RBC % Platelet Estimate Platelet Comment Normal RBC Morphology PT with INR 18.80 H INR 1.59 H PTT (Actin FS) Sodium Potassium Chloride Carbon Dioxide Anion Gap BUN Creatinine Est GFR (CKD-EPI)AfAm Est GFR (CKD-EPI)NonAf Random Glucose Calcium Total Bilirubin AST ALT Alkaline Phosphatase Total Protein Albumin ASSESSMENT/PLAN: 59 year old obese female with a history of hypertension, hyperlipidemia, diabetes mellitus, atrial fibrrilation on eliquis and uviitis who presents for evaluation of severe headache which started 3 days ago described as a right sided throbbing headache that has been persistent despite taking tylenol and tramadol at home prompting her presentation to the ED for further evaluation. #1 Persistent Headache(Severe) Workup w/ CT scan of head negative, BP well controlled, CBC pending -Continue w/ pain management -Percocet 5/325 one tablet ordered for severe headache -Continue with Tylenol 650 mg q4hr prn (monitor LFT's closely) -Neurology consulted- Dr. Merchant #2 MRSA Cellulitus On IV Vancomycin(reported was supposed to finish treatment this Monday) -Infectious Disease- Dr. Bundy consulted #3 Hypertension Controlled -Continue with cardizem #4 Hypokalemia Repleted -Maintain K+ >4.0 #5 Atrial Fibrillation Rate 100's -Continue with oral cardizem for rate control -Continue with eliquis for anticoagulation TSH normal #6 Hyperlipidemia -Continue w/statin therapy #7 Diabetes Mellitus Controlled -BGM -insulin as per sliding scale FEN --IVF NS at 75cc/hr --monitor electrolytes --low sodium ADA diet DVT Prophylaxsis -on Eliquis Visit type - Emergency Visit Emergency Visit: Yes ED Registration Date: 07/24/19 Care time: The patient presented to the Emergency Department on the above date and was hospitalized for further evaluation of their emergent condition. - New Patient This patient is new to me today: Yes Date on this admission: 07/24/19 - Critical Care Critical Care patient: No
[2019-07-24] MEDS ORDERED: ACETAMINOPHEN 325 MG TABLET (FP) PO PRN ×2 (05:52→11:40)
[2019-07-24] MEDS ORDERED: clonazePAM 0.5 MG TABLET PO PRN (05:54)
[2019-07-24] MEDS ORDERED: POTASSIUM CHLORIDE ORAL LIQUID 20 MEQ/15 ML PO ONE (06:07)
[2019-07-24] MEDS ORDERED: POTASSIUM CHLORIDE TABS 20 MEQ TABLET.ER (FP) PO ONE (08:01)
[2019-07-24] MEDS: SODIUM CHLORIDE 1,000 ML IV SCH ×2 (08:20→13:08)
[2019-07-24 08:44] LABS: BASO % 0.3 % (0-2.0); EOS % 2.3 % (0-4.5); HEMATOCRIT 28.2 % (32.4-45.2); HEMOGLOBIN 8.7 GM/dL (10.7-15.3); LYMPH % 17.3 % (8-40); MCH 22.9 pg (25.7-33.7); MCHC 30.8 g/dl (32.0-36.0); MEAN CELL VOLUME 74.5 fl (80-96); MEAN PLT VOLUME 7.2 fl (7.5-11.1); MONO % 7.4 % (3.8-10.2); NEUT % 72.7 % (42.8-82.8); PLATELET COUNT 264 K/MM3 (134-434); RBC 3.79 M/mm3 (3.60-5.2); RDW 21.6 % (11.6-15.6); WHITE BLOOD COUNT 7.4 K/mm3 (4.0-10.0)
[2019-07-24] MEDS ORDERED: PATIENT'S OWN MEDICATION (NON-FORMULARY) (Cyclosporine [Restasis] 1 EACH) OS SCH (10:00)
[2019-07-24] MEDS ORDERED: VANCOMYCIN 1 GM in NS (PRE-DOCKED) 1,000 MG/250 ML IVPB SCH (10:00)
[2019-07-24] MEDS ORDERED: VANCOMYCIN 1,000 MG in SODIUM CHLORIDE 250 ML IVPB SCH (10:00)
[2019-07-24] MEDS: APIXABAN 5 MG TABLET PO SCH ×2 (11:00→23:20)
[2019-07-24] MEDS: CHOLECALCIFEROL (VIT D3) 1,000 UNIT (25 MCG) TABLET PO SCH (11:00)
[2019-07-24] MEDS: CYANOCOBALAMIN 1,000 MCG TABLET (FP) PO SCH (11:00)
--- NOTE | 2019-07-24 11:30 | CON.ID ---
Consult Consult Specialty:: infectious disease Referred by:: dr osborne Reason for Consultation:: mrsa treatment - History of Present Illness Chief Complaint: headache right side of head for 3 days History of Present Illness: worsening right sided headache for three days no fevers radiates from her eye to her forehead severe no neck stiffness alert on vancomycin at home for resolving mrsa abscesses right tibia and left axilla - History Source History Provided By: Patient, Medical Record Limitations to Obtaining History: No Limitations - Past Medical History Cardio/Vascular: Yes: AFIB, CAD, CHF, Deep Vein Thrombosis, HTN, Hyperlipdemia Pulmonary: Yes: Bronchitis, COPD, Pneumonia, Pulmonary Embolus (on Eliquis) Gastrointestinal: Yes: GERD, Other (HERNIA REPAIR WITH COMPLICATIONS AND POST OP SBO) ...LMP: 06/30/13 Infectious Disease: Yes: MRSA Psych: Yes: Anxiety Musculoskeletal: Yes: Osteoarthritis Rheumatology: Yes: Other (OSTEOARTHRITIS) Endocrine: Yes: Diabetes Mellitus, Other - Past Surgical History Past Surgical History: Yes: Hernia Repair - Alcohol/Substance Use Hx Alcohol Use: No History of Substance Use: reports: None - Smoking History Smoking history: Never smoked Have you smoked in the past 12 months: No Aproximately how many cigarettes per day: 0 If you are a former smoker, when did you quit?: 2013 - Social History Usual Living Arrangement: Alone ADL: Independent Place of : [facility] History of Recent Travel: No Home Medications - Allergies Allergies/Adverse Reactions: Allergies Allergy/AdvReac Type Severity Reaction Status Date / Time Penicillins Allergy Hives Verified 07/11/19 13:21 Sulfa (Sulfonamide Allergy Hives Verified 07/11/19 13:21 Antibiotics) [Sulfa(Sulfonamide Antibiotics)] - Home Medications Home Medications: Ambulatory Orders Apixaban [Eliquis] 5 mg PO BID 05/17/19 Atorvastatin Calcium [Lipitor] 10 mg PO HS 05/17/19 Cholecalciferol (Vitamin D3) [Vitamin D -] 2,000 unit PO DAILY 05/17/19 Cyanocobalamin [Vitamin B12 -] 1,000 mcg PO DAILY 05/17/19 Cyclosporine [Restasis] 1 each OS BID 05/17/19 Diltiazem Cd [Cardizem Cd -] 300 mg PO DAILY 05/17/19 Levalbuterol Tartrate [Xopenex Hfa] 1 puff IH BID PRN 05/17/19 [place]-3S/Dha/Epa/Fish Oil [Fish Oil 1,000 mg Softgel] 1 each PO DAILY 05/17/19 Roflumilast [Daliresp] 500 mcg PO DAILY 05/17/19 Tiotropium [place] [Spiriva] 18 mcg IH DAILY 05/17/19 clonazePAM [Klonopin -] 0.5 mg PO PRN PRN 05/17/19 Amitriptyline HCl [Elavil -] 50 mg PO HS tablet 05/21/19 Azithromycin 250 mg PO Q2D #60 tablet 06/18/19 Budesonide/Formeterol Fumarate [SYMBICORT 160/4.5mcg -] 1 inh PO BID 07/01/19 Famotidine [Pepcid -] 40 mg PO BID 07/01/19 Levalbuterol HCl [Xopenex] 0.63 mg IH RTID vial.neb. 07/07/19 Mag Hydrox/Al Hydrox/Simeth [Mylanta Oral Suspension -] 30 ml PO Q8H PRN cup Glipizide Xl 2.5 mg PO DAILY 07/17/19 Glipizide Xl [Glucotrol Xl -] 2.5 mg PO DAILY@0700 #14 tab.er.24 07/19/19 Vancomycin/0.9 % Sod Chloride [Vanco 1 Gram/250 ml-0.9% NaCl] 1 gm IV Q12H #14 plast..bag 07/19/19 Family Medical History Family History: Unremarkable Review of Systems - Review of Systems Constitutional: denies: Diaphoresis, Fever, Lethargy, Loss of Appetite, Night Sweats Eyes: reports: No Symptoms, Eye Pain. denies: Blurred Vision, Photophobia, Recent Change in Vision HENT: reports: No Symptoms Neck: reports: No Symptoms Cardiovascular: reports: No Symptoms Respiratory: reports: No Symptoms Gastrointestinal: reports: No Symptoms Genitourinary: reports: No Symptoms Breasts: reports: No Symptoms Reported Musculoskeletal: reports: No Symptoms Neurological: reports: No Symptoms Endocrine: reports: No Symptoms Hematology/Lymphatic: reports: No Symptoms Physical Exam Vital Signs: Vital Signs Temperature 98.3 F 07/24/19 11:00 Pulse Rate 96 H 07/24/19 11:00 Respiratory Rate 18 07/24/19 11:00 Blood Pressure 109/83 12/04/19 11:00 O2 Sat by Pulse Oximetry (%) 98 07/24/19 11:00 Constitutional: Yes: Well Nourished, No Distress, Calm Eyes: Yes: Other (mild right eye conjunctivitis). No: Diplopia HENT: Yes: Atraumatic, Normocephalic, Other (rash on forehead radiating to her scalp) Neck: Yes: Supple, Trachea Midline Cardiovascular: Yes: Regular Rate and Rhythm Respiratory: Yes: Regular, CTA Bilaterally Gastrointestinal: Yes: Normal Bowel Sounds, Soft ...Rectal Exam: Yes: Deferred Renal/: No: Bladder Distention, CVA Tenderness - Left, CVA Tenderness - Right Extremities: Yes: WNL, Other (picc line site no erythema) Edema: No Integumentary: Yes: Other (right tibial induration resolved, left axillary induration resolved) Neurological: Yes: Alert, Oriented Labs: CBC, BMP 07/24/19 08:20 07/24/19 04:17 Imaging - Results Cat Scan: Report Reviewed Problem List - Problems (1) Headache Code(s): R51 - HEADACHE Qualifiers: Headache type: unspecified Headache chronicity pattern: acute headache Intractability: intractable Qualified Code(s): R51 - Headache (2) Zoster Code(s): B02.9 - ZOSTER WITHOUT COMPLICATIONS (3) MRSA (methicillin resistant Staphylococcus aureus) carrier Code(s): Z22.322 - CARRIER OR SUSPECTED CARRIER OF METHICILLIN RESIS STAPH (4) Diabetes mellitus Code(s): E11.9 - TYPE 2 DIABETES MELLITUS WITHOUT COMPLICATIONS Assessment/Plan zoster V1 dermatome severe right sided headache- eye radiating to scalp, no vision changes has rash on her forehead c/w zoster start acyclovir and IVF optho to see pain meds neuro eval pending mrsa abscesses resolved- left axilla and right leg, will d/c vancomycin DM-management per PMD
[2019-07-24] MEDS ORDERED: oxyCODONE HCL 5 MG TABLET PO PRN (11:40)
[2019-07-24 11:48] LABS: ANISOCYTOSIS 2+; MACROCYTOSIS 0; PLATELET ESTIMATE NORMAL; TARGET CELLS 2+; TEAR DROP CELLS 1+
--- NOTE | 2019-07-24 12:59 | PN ---
Progress Note (short form) - Note Progress Note: Vital Signs - 24 hr 07/24/19 07/24/19 07/24/19 02:00 07:40 11:00 Temperature 97.8 F 98.1 F 98.3 F Pulse Rate 103 H Pulse Rate [ 95 H 96 H Left Radial] Respiratory 18 18 18 Rate Blood Pressure 131/69 Blood Pressure 106/84 109/83 [Right Arm] O2 Sat by Pulse 87 L 97 98 Oximetry (%) 07/24/19 11:42 Temperature 97.8 F Pulse Rate Pulse Rate [ 74 Left Radial] Respiratory 18 Rate Blood Pressure Blood Pressure 127/75 [Right Arm] O2 Sat by Pulse 98 Oximetry (%) Current Medications Generic Name Dose Route Start Last Admin Trade Name Freq PRN Reason Stop Dose Admin Acetaminophen 650 mg 07/24/19 05:52 Tylenol - PO Q6H PRN HEADACHE Acetaminophen 325 mg 07/24/19 11:40 Tylenol - PO Q6H PRN PAIN LEVEL 6-10 Amitriptyline HCl 50 mg 07/24/19 22:00 Elavil - PO HS SANDEEP Apixaban 5 mg 07/24/19 10:00 07/24/19 11:00 Eliquis - PO 5 mg BID SANDEEP Administration Atorvastatin Calcium 10 mg 07/24/19 22:00 Lipitor - PO HS SANDEEP Budesonide/Formoterol Fumarate 1 puff 07/24/19 10:00 Symbicort 160/4.5mcg - IH BID SANDEEP Cholecalciferol 2,000 unit 07/24/19 10:00 07/24/19 11:00 Vitamin D3 - PO 2,000 unit DAILY SANDEEP Administration Clonazepam 0.5 mg 07/24/19 05:54 Klonopin - PO PRN PRN ANXIETY Cyanocobalamin 1,000 mcg 07/24/19 10:00 07/24/19 11:00 Vitamin B12 - PO 1,000 mcg DAILY SANDEEP Administration Diltiazem HCl 300 mg 07/24/19 10:00 07/24/19 11:00 Cardizem Cd - PO 300 mg DAILY SANDE[facility] Administration Famotidine 40 mg 07/24/19 10:00 Pepcid - PO BID SANDEEP Sodium Chloride 1,000 mls @ 75 mls/hr 07/24/19 06:45 07/24/19 08:20 Normal Saline - IV 75 mls/hr ASDIR SANDEEP Administration Sodium Chloride 1,000 mls @ 100 mls/hr 07/24/19 11:30 Normal Saline - IV ASDIR [facility]DEEP Acyclovir 750 mg/ Dextrose 115 mls @ 100 mls/hr 07/24/19 11:30 IVPB Q8H-IV [facility]EP Levalbuterol HCl 0.63 mg 07/24/19 08:00 Xopenex IH RTID SANDEEP Non-Formulary Medication 1 each 07/24/19 10:00 Cyclosporine [Restasis] OS BID [facility] Oxycodone HCl 5 mg 07/24/19 11:40 Roxicodone - PO Q6H PRN PAIN LEVEL 6-10 Tiotropium [place] 2 puff 07/24/19 10:00 Spiriva Respimat IH DAILY [facility] Laboratory Results - last 24 hr 07/24/19 07/24/19 07/24/19 04:17 04:17 04:17 WBC Cancelled Corrected WBC (auto) Cancelled RBC Cancelled Hgb Cancelled Hct Cancelled MCV Cancelled MCH Cancelled MCHC Cancelled RDW Cancelled Plt Count Cancelled MPV Cancelled Absolute Neuts (auto) Cancelled Absolute Lymphs (auto) Cancelled Absolute Monos (auto) Cancelled Absolute Eos (auto) Cancelled Absolute Basos (auto) Cancelled Add Manual Diff Cancelled Neutrophils % Cancelled Lymphocytes % Cancelled Monocytes % Cancelled Eosinophils % Cancelled Basophils % Cancelled Nucleated RBC % Cancelled Hypochromia Platelet Estimate Cancelled Platelet Comment Cancelled Normal RBC Morphology Cancelled Polychromasia Poikilocytosis Anisocytosis Microcytosis Macrocytosis Target Cells Tear Drop Cells Acanthocytes (Spur) ESR PT with INR INR PTT (Actin FS) 32.0 Sodium 143 Potassium 3.0 L Chloride 108 H Carbon Dioxide 26 Anion Gap 9 BUN 9.2 Creatinine 0.6 Est GFR (CKD-EPI)AfAm 115.63 Est GFR (CKD-EPI)NonAf 99.77 POC Glucometer Random Glucose 155 H Calcium 8.4 L Total Bilirubin 0.4 AST 11 L ALT 12 L Alkaline Phosphatase 99 Total Protein 5.0 L Albumin 2.6 L TSH 0.36 07/24/19 07/24/19 07/24/19 04:17 08:20 08:20 WBC 7.4 Corrected WBC (auto) RBC 3.79 Hgb 8.7 L Hct 28.2 L MCV 74.5 L MCH 22.9 L MCHC 30.8 L RDW 21.6 H Plt Count 264 D MPV 7.2 L Absolute Neuts (auto) 5.3 Absolute Lymphs (auto) Absolute Monos (auto) Absolute Eos (auto) Absolute Basos (auto) Add Manual Diff Neutrophils % 72.7 Lymphocytes % 17.3 Monocytes % 7.4 Eosinophils % 2.3 D Basophils % 0.3 Nucleated RBC % 0 Hypochromia 1+ Platelet Estimate Normal Platelet Comment Normal RBC Morphology Polychromasia 2+ Poikilocytosis 2+ Anisocytosis 2+ Microcytosis 2+ Macrocytosis 0 Target Cells 2+ Tear Drop Cells 1+ Acanthocytes (Spur) 1+ ESR 92 H PT with INR 18.80 H INR 1.59 H PTT (Actin FS) Sodium Potassium Chloride Carbon Dioxide Anion Gap BUN Creatinine Est GFR (CKD-EPI)AfAm Est GFR (CKD-EPI)NonAf POC Glucometer Random Glucose Calcium Total Bilirubin AST ALT Alkaline Phosphatase Total Protein Albumin TSH 07/24/19 11:22 WBC Corrected WBC (auto) RBC Hgb Hct MCV MCH MCHC RDW Plt Count MPV Absolute Neuts (auto) Absolute Lymphs (auto) Absolute Monos (auto) Absolute Eos (auto) Absolute Basos (auto) Add Manual Diff Neutrophils % Lymphocytes % Monocytes % Eosinophils % Basophils % Nucleated RBC % Hypochromia Platelet Estimate Platelet Comment Normal RBC Morphology Polychromasia Poikilocytosis Anisocytosis Microcytosis Macrocytosis Target Cells Tear Drop Cells Acanthocytes (Spur) ESR PT with INR INR PTT (Actin FS) Sodium Potassium Chloride Carbon Dioxide Anion Gap BUN Creatinine Est GFR (CKD-EPI)AfAm Est GFR (CKD-EPI)NonAf POC Glucometer 96 Random Glucose Calcium Total Bilirubin AST ALT Alkaline Phosphatase Total Protein Albumin TSH
[2019-07-24] MEDS: TIOTROPIUM BROMIDE 2.5 MCG (SPIRIVA) RESPIMAT INHALER IH SCH (13:07)
[2019-07-24] MEDS: ACYCLOVIR INJECTION 750 MG in DEXTROSE 5%-WATER - 100 ML IVPB SCH ×2 (13:08→18:25)
[2019-07-24] MEDS: BUDESONIDE/FORMETEROL FUMARATE 160/4.5 mcg INHALER IH SCH ×2 (13:08→23:20)
[2019-07-24] MEDS ORDERED: GABAPENTIN 100 MG CAPSULE (FP) ONE ×2 (13:37→23:08)
[2019-07-24] MEDS ORDERED: oxyCODONE HCL 5 MG TABLET ONE ×3 (13:37→23:22)
[2019-07-24] MEDS: oxyCODONE HCL 5 MG TABLET PO PRN ×3 (13:45→23:26)
[2019-07-24] MEDS: GABAPENTIN 300 MG CAPSULE (FP) PO SCH ×2 (13:46→23:20)
[2019-07-24] MEDS ORDERED: APIXABAN 5 MG TABLET ONE (23:08)
[2019-07-24] MEDS ORDERED: AMITRIPTYLINE HCL 25 MG TABLET (FP) ONE (23:08)
[2019-07-24] MEDS ORDERED: ATORVASTATIN CA 10 MG TABLET (FP) ONE (23:08)
[2019-07-24] MEDS: AMITRIPTYLINE HCL 25 MG TABLET (FP) PO SCH (23:20)
[2019-07-24] MEDS: ATORVASTATIN CA 10 MG TABLET (FP) PO SCH (23:20)
[2019-07-25] MEDS: ACETAMINOPHEN 325 MG TABLET (FP) PO PRN ×2 (02:04→22:24)
[2019-07-25] MEDS: ACYCLOVIR INJECTION 750 MG in DEXTROSE 5%-WATER - 100 ML IVPB SCH ×3 (02:54→17:56)
[2019-07-25] MEDS: oxyCODONE HCL 5 MG TABLET PO PRN ×4 (06:32→21:41)
[2019-07-25] MEDS ORDERED: PT OWN MED DRAWER 7, Y5N ONE ×4 (06:40→17:55)
[2019-07-25 08:08] LABS: HEMATOCRIT 27.3 % (32.4-45.2); HEMOGLOBIN 8.3 GM/dL (10.7-15.3); MCHC 30.3 g/dl (32.0-36.0); MEAN CELL VOLUME 75.9 fl (80-96); MEAN PLT VOLUME 7.5 fl (7.5-11.1); PLATELET COUNT 231 K/MM3 (134-434); RDW 21.9 % (11.6-15.6); WHITE BLOOD COUNT 6.2 K/mm3 (4.0-10.0)
[2019-07-25 08:19] LABS: BLOOD UREA NITROGEN 5.9 mg/dL (7-18); CALCIUM 8.5 mg/dL (8.5-10.1); CREATININE 0.5 mg/dL (0.55-1.3); POTASSIUM 3.1 mmol/L (3.5-5.1)
[2019-07-25] MEDS: CHOLECALCIFEROL (VIT D3) 1,000 UNIT (25 MCG) TABLET PO SCH (11:12)
[2019-07-25] MEDS: GABAPENTIN 300 MG CAPSULE (FP) PO SCH ×3 (11:13→21:40)
[2019-07-25] MEDS: APIXABAN 5 MG TABLET PO SCH ×2 (11:13→21:41)
[2019-07-25] MEDS: CYANOCOBALAMIN 1,000 MCG TABLET (FP) PO SCH (11:14)
[2019-07-25] MEDS: TIOTROPIUM BROMIDE 2.5 MCG (SPIRIVA) RESPIMAT INHALER IH SCH (11:20)
[2019-07-25] MEDS: BUDESONIDE/FORMETEROL FUMARATE 160/4.5 mcg INHALER IH SCH ×2 (11:21→21:43)
[2019-07-25] MEDS ORDERED: SODIUM CHLORIDE 1,000 ML IV SCH (11:36)
--- NOTE | 2019-07-25 11:39 | PN ---
Progress Note (short form) - Note Progress Note: pain better with meds but gets occasional sharp pains in forehead Vital Signs - 24 hr 07/24/19 07/24/19 07/24/19 11:42 18:25 23:21 Temperature 97.8 F 98.7 F 98.7 F Pulse Rate Pulse Rate [ 74 97 H 117 H Left Radial] Respiratory 18 18 20 Rate Blood Pressure Blood Pressure 127/75 128/71 150/83 [Right Arm] O2 Sat by Pulse 98 96 95 Oximetry (%) 07/25/19 07/25/19 07/25/19 04:41 04:52 06:00 Temperature 98.9 F 99.3 F Pulse Rate 108 H 110 H Pulse Rate [ Left Radial] Respiratory 20 20 Rate Blood Pressure 156/81 142/65 Blood Pressure [Right Arm] O2 Sat by Pulse 96 Oximetry (%) Current Medications Generic Name Dose Route Start Last Admin Trade Name Freq PRN Reason Stop Dose Admin Acetaminophen 650 mg 07/24/19 13:21 07/25/19 02:04 Tylenol - PO 650 mg Q4H PRN Administration PAIN LEVEL 4 - 6 Amitriptyline HCl 50 mg 07/24/19 22:00 07/24/19 23:20 Elavil - PO 50 mg HS SANDEEP Administration Apixaban 5 mg 07/24/19 10:00 07/25/19 11:13 Eliquis - PO 5 mg BID SANDEEP Administration Atorvastatin Calcium 10 mg 07/24/19 22:00 07/24/19 23:20 Lipitor - PO 10 mg HS SANDEEP Administration Budesonide/Formoterol Fumarate 1 puff 07/24/19 10:00 07/25/19 11:21 Symbicort 160/4.5mcg - IH 1 puff BID SANDEEP Administration Cholecalciferol 2,000 unit 07/24/19 10:00 07/25/19 11:12 Vitamin D3 - PO 2,000 unit DAILY SANDEEP Administration Clonazepam 0.5 mg 07/25/19 11:36 Klonopin - PO Q8H PRN ANXIETY Cyanocobalamin 1,000 mcg 07/24/19 10:00 07/25/19 11:14 Vitamin B12 - PO 1,000 mcg DAILY SANDEEP Administration Diltiazem HCl 300 mg 07/24/19 10:00 07/25/19 11:20 Cardizem Cd - PO 300 mg DAILY SANDEEP Administration Famotidine 40 mg 07/24/19 10:00 Pepcid - PO BID SANDEEP Gabapentin 300 mg 07/25/19 14:00 Neurontin - PO TID SANDEEP Acyclovir 750 mg/ Dextrose 115 mls @ 100 mls/hr 07/24/19 11:30 07/25/19 11:15 IVPB 100 mls/hr Q8H-IV SANDEEP Administration Sodium Chloride 1,000 mls @ 80 mls/hr 07/25/19 11:36 Normal Saline - IV ASDIR SANDEEP Levalbuterol HCl 0.63 mg 07/24/19 08:00 Xopenex IH RTID SANDEEP Non-Formulary Medication 1 each 07/24/19 10:00 Cyclosporine [Restasis] OS BID SANDEEP Oxycodone HCl 10 mg 07/24/19 13:22 07/25/19 11:09 Roxicodone - PO 10 mg Q4H PRN Administration PAIN LEVEL 6-10 Tiotropium [place] 2 puff 07/24/19 10:00 07/25/19 11:20 Spiriva Respimat IH 2 puff DAILY SANDEEP Administration Laboratory Results - last 24 hr 07/24/19 07/25/19 07/25/19 08:20 07:15 07:15 WBC 6.2 RBC 3.60 Hgb 8.3 L Hct 27.3 L MCV 75.9 L MCH 23.0 L MCHC 30.3 L RDW 21.9 H Plt Count 231 MPV 7.5 Hypochromia 1+ Platelet Estimate Normal Polychromasia 2+ Poikilocytosis 2+ Anisocytosis 2+ Microcytosis 2+ Macrocytosis 0 Target Cells 2+ Tear Drop Cells 1+ Acanthocytes (Spur) 1+ Sodium 140 Potassium 3.1 L Chloride 106 Carbon Dioxide 26 Anion Gap 7 L BUN 5.9 L Creatinine 0.5 L Est GFR (CKD-EPI)AfAm 122.78 Est GFR (CKD-EPI)NonAf 105.94 Random Glucose 110 H Calcium 8.5 S1 S2 RRR Lungs no ronchi Left axilla-- no swelling ext -- no edema PLAn replace potassium continue with Acyclovir IV fluids-- add KCL increaser gabapentin ophthal eval Problem List - Problems (1) MRSA (methicillin resistant Staphylococcus aureus) carrier Code(s): Z22.322 - CARRIER OR SUSPECTED CARRIER OF METHICILLIN RESIS STAPH (2) Zoster Code(s): B02.9 - ZOSTER WITHOUT COMPLICATIONS (3) Asthma with COPD Code(s): J44.9 - CHRONIC OBSTRUCTIVE PULMONARY DISEASE, UNSPECIFIED; J45.909 - UNSPECIFIED ASTHMA, UNCOMPLICATED
[2019-07-25] MEDS ORDERED: POTASSIUM CHLORIDE TABS 20 MEQ TABLET.ER (FP) PO ONE (11:40)
--- NOTE | 2019-07-25 14:13 | PN ---
Progress Note (short form) - Note Progress Note: notes rash unchanged still with right sided headache +tearing right eye Vital Signs Period Temp Pulse Resp BP Sys/Jordan Pulse Ox Last 24 Hr 98.7 F-99.3 F 97-117 18-20 128-156/65-83 95-96 cor-rrr lngs clear abd soft,nt ext no edema rash right forehead unchanged CBC, BMP 07/25/19 07:15 07/25/19 07:15 a/p zoster- V1- optho to see will continue acyclovir and ivf daily bmp while on iv acyclovir history of mrsa abscess- resolved DM asthma/copd d/w dr osborne Problem List - Problems (1) Headache Code(s): R51 - HEADACHE Qualifiers: Headache type: unspecified Headache chronicity pattern: acute headache Intractability: intractable Qualified Code(s): R51 - Headache (2) Zoster Code(s): B02.9 - ZOSTER WITHOUT COMPLICATIONS (3) MRSA (methicillin resistant Staphylococcus aureus) carrier Code(s): Z22.322 - CARRIER OR SUSPECTED CARRIER OF METHICILLIN RESIS STAPH (4) Diabetes mellitus Code(s): E11.9 - TYPE 2 DIABETES MELLITUS WITHOUT COMPLICATIONS
[2019-07-25] MEDS ORDERED: clonazePAM 0.5 MG TABLET PO PRN (14:27)
[2019-07-25] MEDS: SODIUM CHLORIDE 1,000 ML IV SCH ×2 (14:57)
[2019-07-25] MEDS: SODIUM CHLORIDE 0.9%/KCL 20 MEQ/1,000 ML INFUS.BAG IV SCH (15:29)
[2019-07-25] MEDS: LEVALBUTEROL HCL 0.63 MG/3 ML VIAL.NEB. IH SCH ×2 (16:28→21:42)
[2019-07-25] MEDS ORDERED: ONDANSETRON 4 MG TABLET PO ONE (21:22)
[2019-07-25] MEDS: ATORVASTATIN CA 10 MG TABLET (FP) PO SCH (21:40)
[2019-07-25] MEDS: AMITRIPTYLINE HCL 25 MG TABLET (FP) PO SCH (21:40)
[2019-07-25] MEDS: FAMOTIDINE 20 MG TABLET PO SCH (21:41)
[2019-07-26] MEDS ORDERED: PT OWN MED DRAWER 7, Y5N ONE ×3 (01:11→18:46)
[2019-07-26] MEDS: ACYCLOVIR INJECTION 750 MG in DEXTROSE 5%-WATER - 100 ML IVPB SCH ×3 (01:36→18:49)
[2019-07-26] MEDS: GABAPENTIN 300 MG CAPSULE (FP) PO SCH ×3 (06:07→22:25)
[2019-07-26] MEDS: oxyCODONE HCL 5 MG TABLET PO PRN ×3 (06:12→22:58)
[2019-07-26] MEDS: LEVALBUTEROL HCL 0.63 MG/3 ML VIAL.NEB. IH SCH ×5 (08:47→22:41)
--- NOTE | 2019-07-26 10:29 | PN ---
Progress Note, Physician History of Present Illness: Pt seen/ examined chart reviewed awake/ comfortable - Current Medication List Current Medications: Active Medications Acetaminophen (Tylenol -) 650 mg PO Q4H PRN PRN Reason: PAIN LEVEL 4 - 6 Last Admin: 07/25/19 22:24 Dose: 650 mg Amitriptyline HCl (Elavil -) 50 mg PO HS [facility] Last Admin: 07/25/19 21:40 Dose: 50 mg Apixaban (Eliquis -) 5 mg PO BID [facility] Last Admin: 07/25/19 21:41 Dose: 5 mg Atorvastatin Calcium (Lipitor -) 10 mg PO HS [facility] Last Admin: 07/25/19 21:40 Dose: 10 mg Budesonide/Formoterol Fumarate (Symbicort 160/4.5mcg -) 1 puff IH BID [facility] Last Admin: 07/25/19 21:43 Dose: 1 puff Cholecalciferol (Vitamin D3 -) 2,000 unit PO DAILY [facility] Last Admin: 07/25/19 11:12 Dose: 2,000 unit Clonazepam (Klonopin -) 0.5 mg PO Q8H PRN PRN Reason: ANXIETY Cyanocobalamin (Vitamin B12 -) 1,000 mcg PO DAILY [facility] Last Admin: 07/25/19 11:14 Dose: 1,000 mcg Diltiazem HCl (Cardizem Cd -) 300 mg PO DAILY [facility] Last Admin: 07/25/19 11:20 Dose: 300 mg Famotidine (Pepcid -) 40 mg PO BID [facility] Last Admin: 07/25/19 21:41 Dose: 40 mg Gabapentin (Neurontin -) 300 mg PO TID [facility] Last Admin: 07/26/19 06:07 Dose: 300 mg Acyclovir 750 mg/ Dextrose 115 mls @ 100 mls/hr IVPB Q8H-IV [facility] Last Admin: 07/26/19 01:36 Dose: 100 mls/hr Potassium Chloride/Sodium Chloride (Ns+20 Meq Kcl -) 20 meq in 1,000 mls @ 80 mls/hr IV ASDIR [facility] Last Admin: 07/25/19 15:29 Dose: 80 mls/hr Levalbuterol HCl (Xopenex) 0.63 mg IH RTID [facility] Last Admin: 07/26/19 08:47 Dose: Not Given Non-Formulary Medication (Cyclosporine [Restasis]) 1 each OS BID [facility] Oxycodone HCl (Roxicodone -) 10 mg PO Q4H PRN PRN Reason: PAIN LEVEL 6-10 Last Admin: 07/26/19 06:12 Dose: 10 mg Tiotropium [place] (Spiriva Respimat) 2 puff IH DAILY [facility] Last Admin: 07/25/19 11:20 Dose: 2 puff - Objective Vital Signs: Vital Signs Temperature 100.1 F H 07/26/19 04:00 Pulse Rate 110 H 07/26/19 04:00 Respiratory Rate 20 07/26/19 04:00 Blood Pressure 138/72 07/26/19 04:00 O2 Sat by Pulse Oximetry (%) 96 07/25/19 04:52 Constitutional: Yes: No Distress, Calm Eyes: Yes: Conjunctiva Clear HENT: Yes: Other (lesions-- face - right side - shingles -- around eye-- eye looks ok) Neck: Yes: Supple Cardiovascular: Yes: Regular Rate and Rhythm Respiratory: Yes: CTA Bilaterally Gastrointestinal: Yes: Soft Edema: No Neurological: Yes: Alert Psychiatric: Yes: Alert Labs: CBC, BMP 07/25/19 07:15 07/25/19 07:15 INR, PTT INR 1.59 (0.83-1.09) H 07/24/19 04:17 Problem List - Problems (1) Headache Code(s): R51 - HEADACHE Qualifiers: Headache type: unspecified Headache chronicity pattern: acute headache Intractability: intractable Qualified Code(s): R51 - Headache (2) MRSA (methicillin resistant Staphylococcus aureus) carrier Code(s): Z22.322 - CARRIER OR SUSPECTED CARRIER OF METHICILLIN RESIS STAPH (3) Zoster Code(s): B02.9 - ZOSTER WITHOUT COMPLICATIONS (4) COPD (chronic obstructive pulmonary disease) Code(s): J44.9 - CHRONIC OBSTRUCTIVE PULMONARY DISEASE, UNSPECIFIED Qualifiers: COPD type: chronic bronchitis Chronic bronchitis type: unspecified Qualified Code(s): J42 - Unspecified chronic bronchitis Assessment/Plan continue with Acyclovir IV fluids-- add KCL increaser gabapentin ophthal eval will consult Neuro also f/u labs. will follow
[2019-07-26] MEDS: FAMOTIDINE 20 MG TABLET PO SCH ×2 (10:50→22:25)
[2019-07-26] MEDS: CHOLECALCIFEROL (VIT D3) 1,000 UNIT (25 MCG) TABLET PO SCH (10:51)
[2019-07-26] MEDS: ACETAMINOPHEN 325 MG TABLET (FP) PO PRN ×2 (10:51→22:24)
[2019-07-26] MEDS: APIXABAN 5 MG TABLET PO SCH ×2 (10:51→22:25)
[2019-07-26] MEDS: CYANOCOBALAMIN 1,000 MCG TABLET (FP) PO SCH (10:52)
[2019-07-26] MEDS: TIOTROPIUM BROMIDE 2.5 MCG (SPIRIVA) RESPIMAT INHALER IH SCH (10:53)
[2019-07-26] MEDS: BUDESONIDE/FORMETEROL FUMARATE 160/4.5 mcg INHALER IH SCH ×2 (10:53→22:25)
--- NOTE | 2019-07-26 14:40 | PN ---
Progress Note (short form) - Note Progress Note: notes some blurry vision, eyelid is swollen rash on forehead is unchanged alert Vital Signs Period Temp Pulse Resp BP Sys/[place] Pulse Ox Last 24 Hr 98.6 F-100.1 F 110-116 18-22 122-143/72-80 cor-rrr lungs clear abd soft,nt ext no edema face with rash on forehead, minimal swelling of the eyelid EOMsI CBC, BMP 07/25/19 07:15 07/25/19 07:15 Current Medications Acetaminophen (Tylenol -) 650 mg PO Q4H PRN PRN Reason: PAIN LEVEL 4 - 6 Last Admin: 07/26/19 10:51 Dose: 650 mg Amitriptyline HCl (Elavil -) 50 mg PO HS [facility] Last Admin: 07/25/19 21:40 Dose: 50 mg Apixaban (Eliquis -) 5 mg PO BID [facility] Last Admin: 07/26/19 10:51 Dose: 5 mg Atorvastatin Calcium (Lipitor -) 10 mg PO HS [facility] Last Admin: 07/25/19 21:40 Dose: 10 mg Budesonide/Formoterol Fumarate (Symbicort 160/4.5mcg -) 1 puff IH BID [facility] Last Admin: 07/26/19 10:53 Dose: 1 puff Cholecalciferol (Vitamin D3 -) 2,000 unit PO DAILY [facility] Last Admin: 07/26/19 10:51 Dose: 2,000 unit Clonazepam (Klonopin -) 0.5 mg PO Q8H PRN PRN Reason: ANXIETY Cyanocobalamin (Vitamin B12 -) 1,000 mcg PO DAILY [facility] Last Admin: 07/26/19 10:52 Dose: 1,000 mcg Diltiazem HCl (Cardizem Cd -) 300 mg PO DAILY [facility] Last Admin: 07/25/19 11:20 Dose: 300 mg Famotidine (Pepcid -) 40 mg PO BID [facility] Last Admin: 07/26/19 10:50 Dose: 40 mg Gabapentin (Neurontin -) 300 mg PO TID [facility] Last Admin: 07/26/19 06:07 Dose: 300 mg Acyclovir 750 mg/ Dextrose 115 mls @ 100 mls/hr IVPB Q8H-IV [facility] Last Admin: 07/26/19 10:46 Dose: 100 mls/hr Potassium Chloride/Sodium Chloride (Ns+20 Meq Kcl -) 20 meq in 1,000 mls @ 80 mls/hr IV ASDIR [facility] Last Admin: 07/25/19 15:29 Dose: 80 mls/hr Levalbuterol HCl (Xopenex) 0.63 mg IH RTID [facility] Last Admin: 07/26/19 14:24 Dose: 0.63 mg Non-Formulary Medication (Cyclosporine [Restasis]) 1 each OS BID [facility] Oxycodone HCl (Roxicodone -) 10 mg PO Q4H PRN PRN Reason: PAIN LEVEL 6-10 Last Admin: 07/26/19 10:49 Dose: 10 mg Tiotropium [place] (Spiriva Respimat) 2 puff IH DAILY [facility] Last Admin: 07/26/19 10:53 Dose: 2 puff a/p zoster- V1- optho to see-d/w PMD will continue acyclovir and ivf daily bmp while on iv acyclovir history of mrsa abscess- resolved DM asthma/copd d/w dr osborne Problem List - Problems (1) Headache Code(s): R51 - HEADACHE Qualifiers: Headache type: unspecified Headache chronicity pattern: acute headache Intractability: intractable Qualified Code(s): R51 - Headache (2) Zoster Code(s): B02.9 - ZOSTER WITHOUT COMPLICATIONS (3) MRSA (methicillin resistant Staphylococcus aureus) carrier Code(s): Z22.322 - CARRIER OR SUSPECTED CARRIER OF METHICILLIN RESIS STAPH (4) Diabetes mellitus Code(s): E11.9 - TYPE 2 DIABETES MELLITUS WITHOUT COMPLICATIONS
[2019-07-26] MEDS: SODIUM CHLORIDE 0.9%/KCL 20 MEQ/1,000 ML INFUS.BAG IV SCH (16:23)
--- NOTE | 2019-07-26 17:06 | CON.NEURO ---
Consult - Past Medical History Cardio/Vascular: Yes: AFIB, CAD, CHF, Deep Vein Thrombosis, HTN, Hyperlipdemia Pulmonary: Yes: Bronchitis, COPD, Pneumonia, Pulmonary Embolus (on Eliquis) Gastrointestinal: Yes: GERD, Other (HERNIA REPAIR WITH COMPLICATIONS AND POST OP SBO) ...LMP: 06/30/13 Infectious Disease: Yes: MRSA Psych: Yes: Anxiety Musculoskeletal: Yes: Osteoarthritis Rheumatology: Yes: Other (OSTEOARTHRITIS) Endocrine: Yes: Diabetes Mellitus, Other - Past Surgical History Past Surgical History: Yes: Hernia Repair - Alcohol/Substance Use Hx Alcohol Use: No History of Substance Use: reports: None - Smoking History Smoking history: Former smoker Have you smoked in the past 12 months: No Aproximately how many cigarettes per day: 0 If you are a former smoker, when did you quit?: 2013 - Social History Usual Living Arrangement: Alone ADL: Independent History of Recent Travel: No Home Medications - Allergies Allergies/Adverse Reactions: Allergies Allergy/AdvReac Type Severity Reaction Status Date / Time Penicillins Allergy Hives Verified 07/11/19 13:21 Sulfa (Sulfonamide Allergy Hives Verified 07/11/19 13:21 Antibiotics) [Sulfa(Sulfonamide Antibiotics)] - Home Medications Home Medications: Ambulatory Orders Apixaban [Eliquis] 5 mg PO BID 05/17/19 Atorvastatin Calcium [Lipitor] 10 mg PO HS 05/17/19 Cholecalciferol (Vitamin D3) [Vitamin D -] 2,000 unit PO DAILY 05/17/19 Cyanocobalamin [Vitamin B12 -] 1,000 mcg PO DAILY 05/17/19 Cyclosporine [Restasis] 1 each OS BID 05/17/19 Diltiazem Cd [Cardizem Cd -] 300 mg PO DAILY 05/17/19 Levalbuterol Tartrate [Xopenex Hfa] 1 puff IH BID PRN 05/17/19 [place]-3S/Dha/Epa/Fish Oil [Fish Oil 1,000 mg Softgel] 1 each PO DAILY 05/17/19 Roflumilast [Daliresp] 500 mcg PO DAILY 05/17/19 Tiotropium [place] [Spiriva] 18 mcg IH DAILY 05/17/19 clonazePAM [Klonopin -] 0.5 mg PO PRN PRN 05/17/19 Amitriptyline HCl [Elavil -] 50 mg PO HS tablet 05/21/19 Azithromycin 250 mg PO Q2D #60 tablet 06/18/19 Budesonide/Formeterol Fumarate [SYMBICORT 160/4.5mcg -] 1 inh PO BID 07/01/19 Famotidine [Pepcid -] 40 mg PO BID 07/01/19 Levalbuterol HCl [Xopenex] 0.63 mg IH RTID vial.neb. 07/07/19 Mag Hydrox/Al Hydrox/Simeth [Mylanta Oral Suspension -] 30 ml PO Q8H PRN cup Glipizide Xl 2.5 mg PO DAILY 07/17/19 Glipizide Xl [Glucotrol Xl -] 2.5 mg PO DAILY@0700 #14 tab.er.24 07/19/19 Vancomycin/0.9 % Sod Chloride [Vanco 1 Gram/250 ml-0.9% NaCl] 1 gm IV Q12H #14 plast..bag 07/19/19 Physical Exam-Neuro Vital Signs: Vital Signs Temperature 98.8 F 07/26/19 15:00 Pulse Rate 99 H 07/26/19 15:00 Respiratory Rate 20 07/26/19 15:00 Blood Pressure 114/55 L 07/26/19 15:00 O2 Sat by Pulse Oximetry (%) 96 07/25/19 04:52 Labs: CBC, BMP 07/25/19 07:15 07/25/19 07:15 INR, PTT INR 1.59 (0.83-1.09) H 07/24/19 04:17 Assessment/Plan cc Right V1 Herpetic neuralgia HPI 59 year old female history of HTN, HLD, DM, Atrial fibrillatio non eliqus and uvitis. Patient present for esvere headhace for three days ago before coming to hospital. Patient is being treated for MRSA for cellulitis and she was getting iv vanco by picc line. patient has not had any fever, high wbc or neck stiffness . Patient denies seeing double vision . At time she was confused transiently. At this time she was seen at bedside with nurse and she denies any headhace or any other focal neurological symptoms. Recent Travel: denies PAST MEDICAL HISTORY: hyperlipidemia diabetes mellitus atrial fibrillation uviitis PAST SURGICAL HISTORY: denies Social History: Smoking:no Alcohol:no Drugs: no Allergies Penicillins Allergy (Verified 07/11/19 13:21) Hives Sulfa (Sulfonamide Antibiotics) [Sulfa(Sulfonamide Antibiotics)] Allergy ( Verified 07/11/19 13:21) Hives HOME MEDICATIONS: Home Medications Medication Instructions Recorded Apixaban [Eliquis] 5 mg PO BID 05/17/19 Atorvastatin Calcium [Lipitor] 10 mg PO HS 05/17/19 Cholecalciferol (Vitamin D3) 2,000 unit PO DAILY 05/17/19 [Vitamin D -] Cyanocobalamin [Vitamin B12 -] 1,000 mcg PO DAILY 05/17/19 Cyclosporine [Restasis] 1 each OS BID 05/17/19 Diltiazem Cd [Cardizem Cd -] 300 mg PO DAILY 05/17/19 Levalbuterol Tartrate [Xopenex Hfa] 1 puff IH BID PRN 05/17/19 [place]-3S/Dha/Epa/Fish Oil [Fish 1 each PO DAILY 05/17/19 Oil 1,000 mg Softgel] Roflumilast [Daliresp] 500 mcg PO DAILY 05/17/19 Tiotropium [place] [Spiriva] 18 mcg IH DAILY 05/17/19 clonazePAM [Klonopin -] 0.5 mg PO PRN PRN 05/17/19 Amitriptyline HCl [Elavil -] 50 mg PO HS tablet 05/21/19 Azithromycin 250 mg PO Q2D #60 tablet 06/18/19 Budesonide/Formeterol Fumarate 1 inh PO BID 07/01/19 [SYMBICORT 160/4.5mcg -] Famotidine [Pepcid -] 40 mg PO BID 07/01/19 Levalbuterol HCl [Xopenex] 0.63 mg IH RTID vial.neb. 07/07/19 Mag Hydrox/Al Hydrox/Simeth 30 ml PO Q8H PRN cup 07/07/19 [Mylanta Oral Suspension -] Glipizide Xl 2.5 mg PO DAILY 07/17/19 Glipizide Xl [Glucotrol Xl -] 2.5 mg PO DAILY@0700 #14 tab.er.24 07/19/19 Vancomycin/0.9 % Sod Chloride 1 gm IV Q12H #14 plast..bag 11/29/19 [Vanco 1 Gram/250 ml-0.9% NaCl] ROS,FH,SH reviewed in chart NEUROLOGICAL EXAMINATION Alert oriented x 3, neck is supple, afebrile vss pupils reactive there is right eyelid edema and there is rash in right v1 distribution no face asymmetry, sensation on face is normal moving all extremity sensation is normal at times she has difficulty moving her eye but lateral she was able to moving her eye in all direction and there is no diplopia ct head is unremarkable Assessment/PLAN 1. Right v1 herpetic neuralgia, she is on iv acylovir and neurontin and elavil for neuropathic pain. Pain is under control Plan: clinically there is no evidence of encephalitis or meningitis , no need for mri or spinal tap - continue Acyclovir and supprotive care Thnaking you so much Alfonso Damon MD
[2019-07-26] MEDS: ATORVASTATIN CA 10 MG TABLET (FP) PO SCH (22:24)
[2019-07-26] MEDS: AMITRIPTYLINE HCL 25 MG TABLET (FP) PO SCH (22:24)
[2019-07-26] MEDS ORDERED: ACETAMINOPHEN 325 MG TABLET (FP) PO ONE (22:40)
[2019-07-27] MEDS ORDERED: PT OWN MED DRAWER 7, Y5N ONE ×3 (01:02→17:22)
[2019-07-27] MEDS: ACYCLOVIR INJECTION 750 MG in DEXTROSE 5%-WATER - 100 ML IVPB SCH ×3 (01:10→17:37)
[2019-07-27] MEDS: oxyCODONE HCL 5 MG TABLET PO PRN ×2 (06:05→10:08)
[2019-07-27] MEDS: GABAPENTIN 300 MG CAPSULE (FP) PO SCH ×3 (06:05→23:18)
[2019-07-27] MEDS: LEVALBUTEROL HCL 0.63 MG/3 ML VIAL.NEB. IH SCH ×3 (07:25→20:39)
[2019-07-27] MEDS: ONDANSETRON 4 MG/2 ML VIAL IVPB PRN (08:54)
[2019-07-27 09:40] LABS: BASO % 0.3 % (0-2.0); EOS % 0.8 % (0-4.5); HEMATOCRIT 27.7 % (32.4-45.2); HEMOGLOBIN 8.3 GM/dL (10.7-15.3); MCH 22.8 pg (25.7-33.7); MCHC 29.9 g/dl (32.0-36.0); MEAN CELL VOLUME 76.2 fl (80-96); MEAN PLT VOLUME 8.2 fl (7.5-11.1); MONO % 11.6 % (3.8-10.2); NEUT % 79.3 % (42.8-82.8); PLATELET COUNT 222 K/MM3 (134-434); RBC 3.64 M/mm3 (3.60-5.2); RDW 21.6 % (11.6-15.6); WHITE BLOOD COUNT 8.1 K/mm3 (4.0-10.0)
[2019-07-27] MEDS: CHOLECALCIFEROL (VIT D3) 1,000 UNIT (25 MCG) TABLET PO SCH (10:07)
[2019-07-27] MEDS: FAMOTIDINE 20 MG TABLET PO SCH ×2 (10:07→23:18)
[2019-07-27] MEDS: APIXABAN 5 MG TABLET PO SCH ×2 (10:07→23:17)
[2019-07-27] MEDS: CYANOCOBALAMIN 1,000 MCG TABLET (FP) PO SCH (10:07)
[2019-07-27] MEDS: ACETAMINOPHEN 325 MG TABLET (FP) PO PRN ×2 (10:09→23:28)
[2019-07-27] MEDS: BUDESONIDE/FORMETEROL FUMARATE 160/4.5 mcg INHALER IH SCH ×2 (10:14→23:18)
[2019-07-27] MEDS: TIOTROPIUM BROMIDE 2.5 MCG (SPIRIVA) RESPIMAT INHALER IH SCH (10:14)
[2019-07-27 10:19] LABS: ALBUMIN 2.7 g/dl (3.4-5.0); BILIRUBIN,TOTAL 0.5 mg/dL (0.2-1); BLOOD UREA NITROGEN 7.8 mg/dL (7-18); CALCIUM 8.2 mg/dL (8.5-10.1); CREATININE 0.7 mg/dL (0.55-1.3); POTASSIUM 3.5 mmol/L (3.5-5.1); TOT PROT 5.2 g/dl (6.4-8.2)
--- NOTE | 2019-07-27 12:25 | PN ---
Progress Note (short form) - Note Progress Note: pt seen/ examined all f/u noted spiked temp 102 last night comfortable now also reports last night was trying to catch things which were not there-- not anymore. aox3 right eye lid swollen conjunctiva clear. denies visual issues Neurology consult noted denies headache/ dizziness Vital Signs Temp 98.2 F 07/27/19 04:20 Pulse 90 07/27/19 04:20 Resp 20 07/27/19 04:20 BP 104/58 L 07/27/19 04:20 Pulse Ox 94 L 07/26/19 21:00 Intake & Output 07/26/19 07/27/19 07/27/19 23:59 11:59 23:59 Intake Total 1060 Balance 1060 Intake: IV 960 NS+20 MEQ KCL - 20 meq In 960 1,000 ml @ 80 mls/hr IV ASDIR [facility] Rx#:[id number] IVPB 100 Other: Voiding Method Toilet # Unmeasured Voids Void 2 Bowel Movement No Active Medications Acetaminophen (Tylenol -) 650 mg PO Q4H PRN PRN Reason: PAIN LEVEL 4 - 6 Last Admin: 07/27/19 10:09 Dose: 650 mg Amitriptyline HCl (Elavil -) 50 mg PO HS [facility] Last Admin: 07/26/19 22:24 Dose: 50 mg Apixaban (Eliquis -) 5 mg PO BID [facility] Last Admin: 07/27/19 10:07 Dose: 5 mg Atorvastatin Calcium (Lipitor -) 10 mg PO HS [facility] Last Admin: 07/26/19 22:24 Dose: 10 mg Budesonide/Formoterol Fumarate (Symbicort 160/4.5mcg -) 1 puff IH BID [facility] Last Admin: 07/27/19 10:14 Dose: 1 puff Cholecalciferol (Vitamin D3 -) 2,000 unit PO DAILY [facility] Last Admin: 07/27/19 10:07 Dose: 2,000 unit Clonazepam (Klonopin -) 0.5 mg PO Q8H PRN PRN Reason: ANXIETY Cyanocobalamin (Vitamin B12 -) 1,000 mcg PO DAILY [facility] Last Admin: 07/27/19 10:07 Dose: 1,000 mcg Diltiazem HCl (Cardizem Cd -) 300 mg PO DAILY [facility] Last Admin: 07/27/19 10:07 Dose: 300 mg Famotidine (Pepcid -) 40 mg PO BID [facility] Last Admin: 07/27/19 10:07 Dose: 40 mg Gabapentin (Neurontin -) 300 mg PO TID [facility] Last Admin: 07/27/19 06:05 Dose: 300 mg Acyclovir 750 mg/ Dextrose 115 mls @ 100 mls/hr IVPB Q8H-IV [facility] Last Admin: 07/27/19 10:09 Dose: 100 mls/hr Potassium Chloride/Sodium Chloride (Ns+20 Meq Kcl -) 20 meq in 1,000 mls @ 80 mls/hr IV ASDIR [facility] Last Admin: 07/26/19 16:23 Dose: 80 mls/hr Levalbuterol HCl (Xopenex) 0.63 mg IH RTID [facility] Last Admin: 07/27/19 07:25 Dose: 0.63 mg Ondansetron HCl (Zofran Injection) 4 mg IVPB Q8H PRN PRN Reason: NAUSEA AND/OR VOMITING Last Admin: 07/27/19 08:54 Dose: 4 mg Oxycodone HCl (Roxicodone -) 10 mg PO Q4H PRN PRN Reason: PAIN LEVEL 6-10 Last Admin: 07/27/19 10:08 Dose: 10 mg Tiotropium [place] (Spiriva Respimat) 2 puff IH DAILY [facility] Last Admin: 07/27/19 10:14 Dose: 2 puff CBC, BMP 07/27/19 07:40 07/27/19 07:40 Physical Exam Constitutional: Yes: No Distress, Calm Eyes: Yes: Conjunctiva Clear HENT: Yes: Other (lesions-- face - right side - shingles -- around eye-- eye looks ok) Neck: Yes: Supple Cardiovascular: Yes: Regular Rate and Rhythm Respiratory: Yes: CTA Bilaterally Gastrointestinal: Yes: Soft Edema: No Neurological: Yes: Alert Psychiatric: Yes: Alert Labs: Problem List - Problems (1) Headache Code(s): R51 - HEADACHE Qualifiers: Headache type: unspecified Headache chronicity pattern: acute headache Intractability: intractable Qualified Code(s): R51 - Headache (2) MRSA (methicillin resistant Staphylococcus aureus) carrier Code(s): Z22.322 - CARRIER OR SUSPECTED CARRIER OF METHICILLIN RESIS STAPH (3) Zoster Code(s): B02.9 - ZOSTER WITHOUT COMPLICATIONS (4) COPD (chronic obstructive pulmonary disease) Code(s): J44.9 - CHRONIC OBSTRUCTIVE PULMONARY DISEASE, UNSPECIFIED Qualifiers: COPD type: chronic bronchitis Chronic bronchitis type: unspecified Qualified Code(s): J42 - Unspecified chronic bronchitis Assessment/Plan continue with Acyclovir IV fluids-- add KCL increased gabapentin will consult Neuro also f/u labs. will follow continue current treatment will order blood cultures. ophthalmology consult will follow. 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
[2019-07-27] MEDS: SODIUM CHLORIDE 0.9%/KCL 20 MEQ/1,000 ML INFUS.BAG IV SCH (14:33)
--- NOTE | 2019-07-27 20:10 | PN ---
Progress Note, Physician History of Present Illness: C/O PAIN , SWELLING R EYE TEMP SPIKE NOTED - Current Medication List Current Medications: Active Medications Acetaminophen (Tylenol -) 650 mg PO Q4H PRN PRN Reason: PAIN LEVEL 4 - 6 Last Admin: 07/27/19 10:09 Dose: 650 mg Amitriptyline HCl (Elavil -) 50 mg PO HS [facility] Last Admin: 07/26/19 22:24 Dose: 50 mg Apixaban (Eliquis -) 5 mg PO BID [facility] Last Admin: 07/27/19 10:07 Dose: 5 mg Atorvastatin Calcium (Lipitor -) 10 mg PO HS [facility] Last Admin: 07/26/19 22:24 Dose: 10 mg Budesonide/Formoterol Fumarate (Symbicort 160/4.5mcg -) 1 puff IH BID [facility] Last Admin: 07/27/19 10:14 Dose: 1 puff Cholecalciferol (Vitamin D3 -) 2,000 unit PO DAILY [facility] Last Admin: 07/27/19 10:07 Dose: 2,000 unit Clonazepam (Klonopin -) 0.5 mg PO Q8H PRN PRN Reason: ANXIETY Cyanocobalamin (Vitamin B12 -) 1,000 mcg PO DAILY [facility] Last Admin: 07/27/19 10:07 Dose: 1,000 mcg Diltiazem HCl (Cardizem Cd -) 300 mg PO DAILY [facility] Last Admin: 07/27/19 10:07 Dose: 300 mg Famotidine (Pepcid -) 40 mg PO BID [facility] Last Admin: 07/27/19 10:07 Dose: 40 mg Gabapentin (Neurontin -) 300 mg PO TID [facility] Last Admin: 07/27/19 14:32 Dose: Not Given Acyclovir 750 mg/ Dextrose 115 mls @ 100 mls/hr IVPB Q8H-IV [facility] Last Admin: 07/27/19 17:37 Dose: 100 mls/hr Potassium Chloride/Sodium Chloride (Ns+20 Meq Kcl -) 20 meq in 1,000 mls @ 80 mls/hr IV ASDIR [facility] Last Admin: 07/27/19 14:33 Dose: 80 mls/hr Levalbuterol HCl (Xopenex) 0.63 mg IH RTID [facility] Last Admin: 07/27/19 14:25 Dose: 0.63 mg Ondansetron HCl (Zofran Injection) 4 mg IVPB Q8H PRN PRN Reason: NAUSEA AND/OR VOMITING Last Admin: 07/27/19 08:54 Dose: 4 mg Tiotropium [place] (Spiriva Respimat) 2 puff IH DAILY [facility] Last Admin: 07/27/19 10:14 Dose: 2 puff - Objective Vital Signs: Vital Signs Temperature 98.5 F 07/27/19 12:00 Pulse Rate 85 07/27/19 12:00 Respiratory Rate 20 07/27/19 12:00 Blood Pressure 110/60 07/27/19 12:00 O2 Sat by Pulse Oximetry (%) 96 07/27/19 09:00 Constitutional: Yes: No Distress Eyes: Yes: Other (+ R PERIORBITAL EDEMA) Cardiovascular: Yes: Regular Rate and Rhythm, S1, S2 Respiratory: Yes: CTA Bilaterally Gastrointestinal: Yes: Normal Bowel Sounds, Soft Edema: No Labs: CBC, BMP 07/27/19 07:40 07/27/19 07:40 INR, PTT INR 1.59 (0.83-1.09) H 07/24/19 04:17 Assessment/Plan HERPES ZOSTER R V1 DISTRIBUTION HX RECURRENT MRSA ST INFECTIONS DIABETES MELLITUS CONTINUE IV ACYCLOVIR
[2019-07-27] MEDS: AMITRIPTYLINE HCL 25 MG TABLET (FP) PO SCH (23:17)
[2019-07-27] MEDS: ATORVASTATIN CA 10 MG TABLET (FP) PO SCH (23:18)
[2019-07-28] MEDS: ACYCLOVIR INJECTION 750 MG in DEXTROSE 5%-WATER - 100 ML IVPB SCH ×3 (01:39→17:58)
[2019-07-28] MEDS ORDERED: PT OWN MED DRAWER 7, Y5N ONE ×3 (01:41→17:43)
[2019-07-28] MEDS: GABAPENTIN 300 MG CAPSULE (FP) PO SCH ×2 (06:45→15:48)
[2019-07-28] MEDS: oxyCODONE HCL 5 MG TABLET PO PRN ×2 (06:45→20:20)
[2019-07-28] MEDS: LEVALBUTEROL HCL 0.63 MG/3 ML VIAL.NEB. IH SCH ×3 (08:05→20:33)
[2019-07-28] MEDS: CYANOCOBALAMIN 1,000 MCG TABLET (FP) PO SCH (10:32)
[2019-07-28] MEDS: APIXABAN 5 MG TABLET PO SCH ×2 (10:32→21:59)
[2019-07-28] MEDS: DOCUSATE SODIUM 100 MG CAPSULE (FP) PO SCH ×2 (10:32→21:59)
[2019-07-28] MEDS: CHOLECALCIFEROL (VIT D3) 1,000 UNIT (25 MCG) TABLET PO SCH (10:32)
[2019-07-28] MEDS: TIOTROPIUM BROMIDE 2.5 MCG (SPIRIVA) RESPIMAT INHALER IH SCH (10:33)
[2019-07-28] MEDS: BUDESONIDE/FORMETEROL FUMARATE 160/4.5 mcg INHALER IH SCH ×2 (10:33→21:59)
[2019-07-28] MEDS: FAMOTIDINE 20 MG TABLET PO SCH ×2 (10:38→21:59)
--- NOTE | 2019-07-28 12:01 | PN ---
Progress Note (short form) - Note Progress Note: pt seen/ examined awake denies cp/sob/abd pain denies eye pain right eye lid swollen Vital Signs Temp 98.0 F 07/28/19 10:00 Pulse 96 H 07/28/19 10:00 Resp 18 07/28/19 10:00 BP 122/62 07/28/19 10:00 Pulse Ox 96 07/27/19 09:00 Intake & Output 07/27/19 07/28/19 07/28/19 23:59 11:59 23:59 Intake Total 2400 600 Balance 2400 600 Intake: IV 1800 300 NS+20 MEQ KCL - 20 meq In 1800 300 1,000 ml @ 80 mls/hr IV ASDIR [facility] Rx#:[id number] IVPB 300 100 Oral 300 200 Other: Voiding Method Toilet Toilet # Unmeasured Voids Void 1 Bowel Movement No No Active Medications Acetaminophen (Tylenol -) 650 mg PO Q4H PRN PRN Reason: PAIN LEVEL 4 - 6 Last Admin: 07/27/19 23:28 Dose: 650 mg Amitriptyline HCl (Elavil -) 50 mg PO [facility] Last Admin: 07/27/19 23:17 Dose: 50 mg Apixaban (Eliquis -) 5 mg PO BID [facility] Last Admin: 07/28/19 10:32 Dose: 5 mg Atorvastatin Calcium (Lipitor -) 10 mg PO [facility] Last Admin: 07/27/19 23:18 Dose: 10 mg Budesonide/Formoterol Fumarate (Symbicort 160/4.5mcg -) 1 puff IH BID [facility] Last Admin: 07/28/19 10:33 Dose: 1 puff Cholecalciferol (Vitamin D3 -) 2,000 unit PO DAILY [facility] Last Admin: 07/28/19 10:32 Dose: 2,000 unit Clonazepam (Klonopin -) 0.5 mg PO Q8H PRN PRN Reason: ANXIETY Cyanocobalamin (Vitamin B12 -) 1,000 mcg PO DAILY [facility] Last Admin: 07/28/19 10:32 Dose: 1,000 mcg Diltiazem HCl (Cardizem Cd -) 300 mg PO DAILY [facility] Last Admin: 07/28/19 10:32 Dose: 300 mg Docusate Sodium (Colace -) 100 mg PO BID [facility] Last Admin: 07/28/19 10:32 Dose: 100 mg Famotidine (Pepcid -) 40 mg PO BID [facility] Last Admin: 07/28/19 10:38 Dose: 40 mg Gabapentin (Neurontin -) 300 mg PO TID [facility] Last Admin: 07/28/19 06:45 Dose: 300 mg Acyclovir 750 mg/ Dextrose 115 mls @ 100 mls/hr IVPB Q8H-IV [facility] Last Admin: 07/28/19 10:30 Dose: 100 mls/hr Potassium Chloride/Sodium Chloride (Ns+20 Meq Kcl -) 20 meq in 1,000 mls @ 80 mls/hr IV ASDIR [facility] Last Admin: 07/27/19 14:33 Dose: 80 mls/hr Levalbuterol HCl (Xopenex) 0.63 mg IH RTID [facility] Last Admin: 07/28/19 08:05 Dose: 0.63 mg Ondansetron HCl (Zofran Injection) 4 mg IVPB Q8H PRN PRN Reason: NAUSEA AND/OR VOMITING Last Admin: 07/27/19 08:54 Dose: 4 mg Oxycodone HCl (Roxicodone -) 10 mg PO Q4H PRN PRN Reason: PAIN LEVEL 7 - 10 Last Admin: 07/28/19 06:45 Dose: 10 mg Tiotropium [place] (Spiriva Respimat) 2 puff IH DAILY [facility] Last Admin: 07/28/19 10:33 Dose: 2 puff CBC, BMP 07/27/19 07:40 07/27/19 07:40 Physical Exam Constitutional: Yes: No Distress, Calm Eyes: Yes: Conjunctiva Clear HENT: Yes: Other (lesions-- face - right side - shingles -- around eye-- eye looks ok)-- Eye lid swelling + Neck: Yes: Supple.no jvd Cardiovascular: Yes: Regular Rate and Rhythm Respiratory: Yes: CTA Bilaterally Gastrointestinal: Yes: Soft Edema: No Neurological: Yes: Alert Psychiatric: Yes: Alert Assessment/Plan continue with Acyclovir IV fluids-- continue current treatment. monitor lytes will follow. 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
[2019-07-28] MEDS: SODIUM CHLORIDE 0.9%/KCL 20 MEQ/1,000 ML INFUS.BAG IV SCH (15:48)
--- NOTE | 2019-07-28 15:52 | PN ---
Progress Note (short form) - Note Progress Note: 59 year old female history of HTN, HLD, DM, Atrial fibrillatio non eliqus and uvitis. Patient present for esvere headhace for three days ago before coming to hospital. Patient is being treated for MRSA for cellulitis and she was getting iv vanco by picc line. patient has not had any fever, high wbc or neck stiffness . Patient denies seeing double vision . At time she was confused transiently. At this time she was seen at bedside with nurse and she denies any headhace or any other focal neurological symptoms. Martir has been alert and orietned x 3, and had episode of hallucination . She still have headache , but better. NEUROLOGICAL EXAMINATION Alert oriented x 3, neck is supple, afebrile vss pupils reactive there is right eyelid edema and there is rash in right v1 distribution, there is mild swelling right eyelid no face asymmetry, sensation on face is normal moving all extremity sensation is normal at times she has difficulty moving her eye but lateral she was able to moving her eye in all direction and there is no diplopia ct head is unremarkable Assessment/PLAN 1. Right v1 herpetic neuralgia, she is on iv acylovir and neurontin and elavil for neuropathic pain. Pain is under control 2. Hallucination ? unlikely t be encephalitis and given neurontin is new, I suggest to get mri with contrast ( she can be given ativan 1mg before mri) and stop gabapnetin Plan: clinically there is no evidence of encephalitis or meningitis , - continue Acyclovir and supprotive care mri of brain with contrast and eeg stop neurontin Thnaking you so much Alfonso Damon MD
[2019-07-28] MEDS: ACETAMINOPHEN 325 MG TABLET (FP) PO PRN (20:20)
[2019-07-28] MEDS: ATORVASTATIN CA 10 MG TABLET (FP) PO SCH (21:59)
[2019-07-28] MEDS: AMITRIPTYLINE HCL 25 MG TABLET (FP) PO SCH (21:59)
[2019-07-29] MEDS ORDERED: PT OWN MED DRAWER 7, Y5N ONE ×2 (02:02→17:40)
[2019-07-29] MEDS: ACYCLOVIR INJECTION 750 MG in DEXTROSE 5%-WATER - 100 ML IVPB SCH ×3 (02:34→19:09)
[2019-07-29] MEDS: LEVALBUTEROL HCL 0.63 MG/3 ML VIAL.NEB. IH SCH ×3 (08:06→20:49)
[2019-07-29 08:30] LABS: BASO % 0.3 % (0-2.0); EOS % 1.8 % (0-4.5); HEMATOCRIT 25.9 % (32.4-45.2); HEMOGLOBIN 7.8 GM/dL (10.7-15.3); LYMPH % 38.2 % (8-40); MCH 23.1 pg (25.7-33.7); MCHC 30.3 g/dl (32.0-36.0); MEAN PLT VOLUME 7.6 fl (7.5-11.1); MONO % 20.7 % (3.8-10.2); PLATELET COUNT 176 K/MM3 (134-434); RDW 21.7 % (11.6-15.6)
[2019-07-29 08:33] LABS: ALBUMIN 2.4 g/dl (3.4-5.0); BILIRUBIN,TOTAL 0.4 mg/dL (0.2-1); BLOOD UREA NITROGEN 4.7 mg/dL (7-18); CALCIUM 8.6 mg/dL (8.5-10.1); CREATININE 0.8 mg/dL (0.55-1.3); TOT PROT 4.8 g/dl (6.4-8.2)
[2019-07-29 10:58] LABS: ANISOCYTOSIS 1+; MACROCYTOSIS 0; PLATELET ESTIMATE NORMAL
[2019-07-29] MEDS: CHOLECALCIFEROL (VIT D3) 1,000 UNIT (25 MCG) TABLET PO SCH (12:07)
[2019-07-29] MEDS: CYANOCOBALAMIN 1,000 MCG TABLET (FP) PO SCH (12:07)
[2019-07-29] MEDS: DOCUSATE SODIUM 100 MG CAPSULE (FP) PO SCH ×2 (12:07→22:10)
[2019-07-29] MEDS: APIXABAN 5 MG TABLET PO SCH ×2 (12:07→22:10)
[2019-07-29] MEDS: FAMOTIDINE 20 MG TABLET PO SCH ×2 (12:08→22:11)
[2019-07-29] MEDS: oxyCODONE HCL 5 MG TABLET PO PRN ×3 (12:12→22:21)
[2019-07-29] MEDS: ACETAMINOPHEN 325 MG TABLET (FP) PO PRN ×3 (12:14→22:20)
[2019-07-29] MEDS: BUDESONIDE/FORMETEROL FUMARATE 160/4.5 mcg INHALER IH SCH ×2 (12:17→22:13)
[2019-07-29] MEDS: TIOTROPIUM BROMIDE 2.5 MCG (SPIRIVA) RESPIMAT INHALER IH SCH (12:18)
--- NOTE | 2019-07-29 12:56 | PN ---
Progress Note (short form) - Note Progress Note: Pt seen/ examined awake/ comfortable mood stable Neurology f/u noted Just Had EEG done MRI - Pending Vital Signs Temp 98.8 F 07/29/19 10:00 Pulse 104 H 07/29/19 10:00 Resp 20 07/29/19 10:00 BP 126/73 07/29/19 10:00 Pulse Ox 96 07/29/19 09:00 Intake & Output 07/28/19 07/29/19 07/29/19 23:59 11:59 23:59 Intake Total 1500 400 Balance 1500 400 Intake: IV 1000 0 NS+20 MEQ KCL - 20 meq In 1000 0 1,000 ml @ 80 mls/hr IV [facility]IR [facility] Rx#:[id number] IVPB 200 100 Oral 300 300 Other: Voiding Method Toilet Toilet Toilet # Unmeasured Voids Void 1 Bowel Movement No Active Medications Acetaminophen (Tylenol -) 650 mg PO Q4H PRN PRN Reason: PAIN LEVEL 4 - 6 Last Admin: 07/29/19 12:14 Dose: 650 mg Amitriptyline HCl (Elavil -) 50 mg PO HS [facility] Last Admin: 07/28/19 21:59 Dose: 50 mg Apixaban (Eliquis -) 5 mg PO BID [facility] Last Admin: 07/29/19 12:07 Dose: 5 mg Atorvastatin Calcium (Lipitor -) 10 mg PO HS [facility] Last Admin: 07/28/19 21:59 Dose: 10 mg Budesonide/Formoterol Fumarate (Symbicort 160/4.5mcg -) 1 puff IH BID [facility] Last Admin: 07/29/19 12:17 Dose: 1 puff Cholecalciferol (Vitamin D3 -) 2,000 unit PO DAILY [facility] Last Admin: 07/29/19 12:07 Dose: 2,000 unit Clonazepam (Klonopin -) 0.5 mg PO Q8H PRN PRN Reason: ANXIETY Cyanocobalamin (Vitamin B12 -) 1,000 mcg PO DAILY [facility] Last Admin: 07/29/19 12:07 Dose: 1,000 mcg Diltiazem HCl (Cardizem Cd -) 300 mg PO DAILY [facility] Last Admin: 07/29/19 12:09 Dose: 300 mg Docusate Sodium (Colace -) 100 mg PO BID [facility] Last Admin: 07/29/19 12:07 Dose: 100 mg Famotidine (Pepcid -) 40 mg PO BID [facility] Last Admin: 07/29/19 12:08 Dose: 40 mg Acyclovir 750 mg/ Dextrose 115 mls @ 100 mls/hr IVPB Q8H-IV [facility] Last Admin: 07/29/19 12:06 Dose: 100 mls/hr Potassium Chloride/Sodium Chloride (Ns+20 Meq Kcl -) 20 meq in 1,000 mls @ 80 mls/hr IV ASDIR [facility] Last Admin: 07/28/19 15:48 Dose: 80 mls/hr Levalbuterol HCl (Xopenex) 0.63 mg IH RTID [facility] Last Admin: 07/29/19 08:06 Dose: Not Given Lorazepam (Ativan -) 1 mg PO ONCE ONE Stop: 07/28/19 15:56 Ondansetron HCl (Zofran Injection) 4 mg IVPB Q8H PRN PRN Reason: NAUSEA AND/OR VOMITING Last Admin: 07/27/19 08:54 Dose: 4 mg Oxycodone HCl (Roxicodone -) 10 mg PO Q4H PRN PRN Reason: PAIN LEVEL 7 - 10 Last Admin: 07/29/19 12:12 Dose: 10 mg Tiotropium [place] (Spiriva Respimat) 2 puff IH DAILY [facility] Last Admin: 07/29/19 12:18 Dose: 2 puff CBC, BMP 07/29/19 06:50 07/29/19 06:50 Microbiology 07/27/19 13:48 Blood Culture - Preliminary Blood - Peripheral Venous NO GROWTH OBTAINED AFTER 24 HOURS, INCUBATION TO CONTINUE FOR 4 DAYS. 07/27/19 14:00 Blood Culture - Preliminary Blood - Peripheral Venous NO GROWTH OBTAINED AFTER 24 HOURS, INCUBATION TO CONTINUE FOR 4 DAYS. Physical Exam Constitutional: Yes: No Distress, Calm Eyes: Yes: Conjunctiva Clear HENT: Yes: Other (lesions-- face - right side - shingles -- around eye-- eye looks ok)-- Eye lid swelling +-- Decreased rash Neck: Yes: Supple.no jvd Cardiovascular: Yes: Regular Rate and Rhythm Respiratory: Yes: CTA Bilaterally Gastrointestinal: Yes: Soft Edema: No Neurological: Yes: Alert Psychiatric: Yes: Alert Assessment/Plan continue with Acyclovir IV fluids-- continue current treatment. monitor lytes will follow. D/w Opthalmology--Dr. Gaona-- will need detailed exam -- split lamp- as out pt-- but will come to see pt in house Will follow Problem List - Problems (1) Headache Code(s): R51 - HEADACHE Qualifiers: Headache type: unspecified Headache chronicity pattern: acute headache Intractability: intractable Qualified Code(s): R51 - Headache (2) MRSA (methicillin resistant Staphylococcus aureus) carrier Code(s): Z22.322 - CARRIER OR SUSPECTED CARRIER OF METHICILLIN RESIS STAPH (3) Zoster Code(s): B02.9 - ZOSTER WITHOUT COMPLICATIONS (4) COPD (chronic obstructive pulmonary disease) Code(s): J44.9 - CHRONIC OBSTRUCTIVE PULMONARY DISEASE, UNSPECIFIED Qualifiers: COPD type: chronic bronchitis Chronic bronchitis type: unspecified Qualified Code(s): J42 - Unspecified chronic bronchitis Problem List - Problems (1) Headache Code(s): R51 - HEADACHE Qualifiers: Headache type: unspecified Headache chronicity pattern: acute headache Intractability: intractable Qualified Code(s): R51 - Headache (2) MRSA (methicillin resistant Staphylococcus aureus) carrier Code(s): Z22.322 - CARRIER OR SUSPECTED CARRIER OF METHICILLIN RESIS STAPH (3) Zoster Code(s): B02.9 - ZOSTER WITHOUT COMPLICATIONS (4) COPD (chronic obstructive pulmonary disease) Code(s): J44.9 - CHRONIC OBSTRUCTIVE PULMONARY DISEASE, UNSPECIFIED Qualifiers: COPD type: chronic bronchitis Chronic bronchitis type: unspecified Qualified Code(s): J42 - Unspecified chronic bronchitis
--- NOTE | 2019-07-29 14:04 | PN ---
Progress Note (short form) - Note Progress Note: notes some blurry vision, eyelid is swollen rash on forehead is unchanged alert no hallucinations Vital Signs Period Temp Pulse Resp BP Sys/Jordan Pulse Ox Last 24 Hr 98.3 F-99.2 F 102-113 18-20 126-160/72-82 96 swelling of left eyelid with conjuctivitis, rash on forehead resolving cor-rrr lungs clear abd soft,nt ext no edema CBC, BMP 07/29/19 06:50 07/29/19 06:50 Microbiology 07/27/19 13:48 Blood - Peripheral Venous Blood Culture - Preliminary NO GROWTH OBTAINED AFTER 48 HOURS, INCUBATION TO CONTINUE FOR 3 DAYS. 07/27/19 14:00 Blood - Peripheral Venous Blood Culture - Preliminary NO GROWTH OBTAINED AFTER 48 HOURS, INCUBATION TO CONTINUE FOR 3 DAYS. Current Medications Acetaminophen (Tylenol -) 650 mg PO Q4H PRN PRN Reason: PAIN LEVEL 4 - 6 Last Admin: 07/29/19 12:14 Dose: 650 mg Amitriptyline HCl (Elavil -) 50 mg PO HS [facility] Last Admin: 07/28/19 21:59 Dose: 50 mg Apixaban (Eliquis -) 5 mg PO BID [facility] Last Admin: 07/29/19 12:07 Dose: 5 mg Atorvastatin Calcium (Lipitor -) 10 mg PO HS [facility] Last Admin: 07/28/19 21:59 Dose: 10 mg Budesonide/Formoterol Fumarate (Symbicort 160/4.5mcg -) 1 puff IH BID [facility] Last Admin: 07/29/19 12:17 Dose: 1 puff Cholecalciferol (Vitamin D3 -) 2,000 unit PO DAILY [facility] Last Admin: 07/29/19 12:07 Dose: 2,000 unit Clonazepam (Klonopin -) 0.5 mg PO Q8H PRN PRN Reason: ANXIETY Cyanocobalamin (Vitamin B12 -) 1,000 mcg PO DAILY [facility] Last Admin: 07/29/19 12:07 Dose: 1,000 mcg Diltiazem HCl (Cardizem Cd -) 300 mg PO DAILY [facility] Last Admin: 07/29/19 12:09 Dose: 300 mg Docusate Sodium (Colace -) 100 mg PO BID [facility] Last Admin: 07/29/19 12:07 Dose: 100 mg Famotidine (Pepcid -) 40 mg PO BID [facility] Last Admin: 07/29/19 12:08 Dose: 40 mg Acyclovir 750 mg/ Dextrose 115 mls @ 100 mls/hr IVPB Q8H-IV SANDEEP Last Admin: 07/29/19 12:06 Dose: 100 mls/hr Potassium Chloride/Sodium Chloride (Ns+20 Meq Kcl -) 20 meq in 1,000 mls @ 80 mls/hr IV ASDIR [facility] Last Admin: 07/28/19 15:48 Dose: 80 mls/hr Levalbuterol HCl (Xopenex) 0.63 mg IH RTID [facility] Last Admin: 07/29/19 08:06 Dose: Not Given Lorazepam (Ativan -) 1 mg PO ONCE ONE Stop: 07/28/19 15:56 Ondansetron HCl (Zofran Injection) 4 mg IVPB Q8H PRN PRN Reason: NAUSEA AND/OR VOMITING Last Admin: 07/27/19 08:54 Dose: 4 mg Oxycodone HCl (Roxicodone -) 10 mg PO Q4H PRN PRN Reason: PAIN LEVEL 7 - 10 Last Admin: 07/29/19 12:12 Dose: 10 mg Tiotropium [place] (Spiriva Respimat) 2 puff IH DAILY [facility] Last Admin: 07/29/19 12:18 Dose: 2 puff a/p zoster- V1- optho to see-d/w dr mariscal will continue acyclovir and ivf daily bmp while on iv acyclovir neuro has ordered MRI- history of mrsa abscess- resolved DM asthma/copd Problem List - Problems (1) Headache Code(s): R51 - HEADACHE Qualifiers: Headache type: unspecified Headache chronicity pattern: acute headache Intractability: intractable Qualified Code(s): R51 - Headache (2) Zoster Code(s): B02.9 - ZOSTER WITHOUT COMPLICATIONS (3) MRSA (methicillin resistant Staphylococcus aureus) carrier Code(s): Z22.322 - CARRIER OR SUSPECTED CARRIER OF METHICILLIN RESIS STAPH (4) Diabetes mellitus Code(s): E11.9 - TYPE 2 DIABETES MELLITUS WITHOUT COMPLICATIONS
[2019-07-29] MEDS: SODIUM CHLORIDE 0.9%/KCL 20 MEQ/1,000 ML INFUS.BAG IV SCH (18:09)
[2019-07-29] MEDS: AMITRIPTYLINE HCL 25 MG TABLET (FP) PO SCH (22:10)
[2019-07-29] MEDS: ATORVASTATIN CA 10 MG TABLET (FP) PO SCH (22:10)
[2019-07-30] MEDS ORDERED: PT OWN MED DRAWER 7, Y5N ONE ×3 (01:41→18:34)
[2019-07-30] MEDS: ACYCLOVIR INJECTION 750 MG in DEXTROSE 5%-WATER - 100 ML IVPB SCH ×3 (01:57→18:53)
[2019-07-30] MEDS: LEVALBUTEROL HCL 0.63 MG/3 ML VIAL.NEB. IH SCH ×2 (07:35→15:20)
[2019-07-30 08:18] LABS: HEMATOCRIT 25.9 % (32.4-45.2); HEMOGLOBIN 7.8 GM/dL (10.7-15.3); MCHC 30.2 g/dl (32.0-36.0); MEAN CELL VOLUME 76.1 fl (80-96); MEAN PLT VOLUME 7.7 fl (7.5-11.1); PLATELET COUNT 179 K/MM3 (134-434); RBC 3.41 M/mm3 (3.60-5.2); RDW 22.3 % (11.6-15.6); WHITE BLOOD COUNT 7.5 K/mm3 (4.0-10.0)
[2019-07-30 08:53] LABS: BLOOD UREA NITROGEN 4.1 mg/dL (7-18); CALCIUM 8.4 mg/dL (8.5-10.1); CREATININE 0.8 mg/dL (0.55-1.3); POTASSIUM 3.5 mmol/L (3.5-5.1)
[2019-07-30] MEDS ORDERED: LORazepam 1 MG TABLET PO ONE (10:30)
--- NOTE | 2019-07-30 10:38 | PN ---
Progress Note (short form) - Note Progress Note: 9 year old female history of HTN, HLD, DM, Atrial fibrillatio non eliqus and uvitis. Patient present for esvere headhace for three days ago before coming to hospital. Patient is being treated for MRSA for cellulitis and she was getting iv vanco by picc line. patient has not had any fever, high wbc or neck stiffness . Patient denies seeing double vision . At time she was confused transiently. At this time she was seen at bedside with nurse and she denies any headhace or any other focal neurological symptoms. Patient has no hallucination NEUROLOGICAL EXAMINATION Alert oriented x 3, neck is supple, afebrile vss pupils reactive there is right eyelid edema and there is rash in right v1 distribution, there is mild swelling right eyelid no face asymmetry, sensation on face is normal moving all extremity sensation is normal at times she has difficulty moving her eye but lateral she was able to moving her eye in all direction and there is no diplopia ct head is unremarkable Assessment/PLAN 1. Right v1 herpetic neuralgia, she is on iv acylovir and neurontin and elavil for neuropathic pain. Pain is under control 2. no hallucination since stopping neruontin Plan: clinically there is no evidence of encephalitis or meningitis , - continue Acyclovir and supprotive care since could not get iv line, would do mri of brain without contrast Thnaking you so much Alfonso Damon MD
[2019-07-30] MEDS: CHOLECALCIFEROL (VIT D3) 1,000 UNIT (25 MCG) TABLET PO SCH (10:53)
[2019-07-30] MEDS: APIXABAN 5 MG TABLET PO SCH ×2 (10:53→21:36)
[2019-07-30] MEDS: DOCUSATE SODIUM 100 MG CAPSULE (FP) PO SCH ×2 (10:53→21:36)
[2019-07-30] MEDS: CYANOCOBALAMIN 1,000 MCG TABLET (FP) PO SCH (10:53)
[2019-07-30] MEDS: FAMOTIDINE 20 MG TABLET PO SCH ×2 (10:54→21:36)
[2019-07-30] MEDS: TIOTROPIUM BROMIDE 2.5 MCG (SPIRIVA) RESPIMAT INHALER IH SCH (10:55)
[2019-07-30] MEDS: BUDESONIDE/FORMETEROL FUMARATE 160/4.5 mcg INHALER IH SCH ×2 (10:55→21:36)
[2019-07-30] MEDS: SODIUM CHLORIDE 0.9%/KCL 20 MEQ/1,000 ML INFUS.BAG IV SCH (10:56)
[2019-07-30] MEDS: oxyCODONE HCL 5 MG TABLET PO PRN ×2 (11:19→21:37)
[2019-07-30] MEDS: ACETAMINOPHEN 325 MG TABLET (FP) PO PRN (11:19)
--- NOTE | 2019-07-30 12:51 | PN ---
Progress Note (short form) - Note Progress Note: pain better with meds but gets shooting sharp pains in forehead vision in right eye slightly better as the swelling has reduced Vital Signs - 24 hr 07/29/19 07/29/19 07/29/19 14:00 20:58 23:19 Temperature 98 F 98.3 F Pulse Rate 124 H 108 H Respiratory 20 20 20 Rate Blood Pressure 102/44 L 116/56 L O2 Sat by Pulse 97 Oximetry (%) 07/30/19 07/30/19 07:00 10:07 Temperature 98.2 F 98.6 F Pulse Rate 89 108 H Respiratory 20 18 Rate Blood Pressure 137/65 149/71 O2 Sat by Pulse Oximetry (%) Current Medications Generic Name Dose Route Start Last Admin Trade Name Freq PRN Reason Stop Dose Admin Acetaminophen 650 mg 07/24/19 13:21 07/30/19 11:19 Tylenol - PO 650 mg Q4H PRN Administration PAIN LEVEL 4 - 6 Amitriptyline HCl 50 mg 07/24/19 22:00 07/29/19 22:10 Elavil - PO 50 mg HS SANDEEP Administration Apixaban 5 mg 07/24/19 10:00 07/30/19 10:53 Eliquis - PO 5 mg BID SANDEEP Administration Atorvastatin Calcium 10 mg 07/24/19 22:00 07/29/19 22:10 Lipitor - PO 10 mg HS SANDEEP Administration Budesonide/Formoterol Fumarate 1 puff 07/24/19 10:00 07/30/19 10:55 Symbicort 160/4.5mcg - IH 1 puff BID SANDEEP Administration Cholecalciferol 2,000 unit 07/24/19 10:00 07/30/19 10:53 Vitamin D3 - PO 2,000 unit DAILY SANDEEP Administration Clonazepam 0.5 mg 07/25/19 14:27 Klonopin - PO Q8H PRN ANXIETY Cyanocobalamin 1,000 mcg 07/24/19 10:00 07/30/19 10:53 Vitamin B12 - PO 1,000 mcg DAILY SANDEEP Administration Diltiazem HCl 300 mg 07/24/19 10:00 07/30/19 10:54 Cardizem Cd - PO 300 mg DAILY SANDEEP Administration Docusate Sodium 100 mg 07/28/19 10:00 07/30/19 10:53 Colace - PO 100 mg BID SANDEEP Administration Famotidine 40 mg 07/25/19 22:00 07/30/19 10:54 Pepcid - PO 40 mg BID SANDEEP Administration Acyclovir 750 mg/ Dextrose 115 mls @ 100 mls/hr 07/24/19 11:30 07/30/19 10:53 IVPB 100 mls/hr Q8H-IV SANDEEP Administration Potassium Chloride/Sodium Chloride 20 meq in 1,000 mls @ 80 mls/hr 07/25/19 11 :40 07/30/19 10:56 Ns+20 Meq Kcl - IV 80 mls/hr ASDIR SANDEEP Administration Levalbuterol HCl 0.63 mg 07/25/19 14:30 07/30/19 07:35 Xopenex IH 0.63 mg RTID SANDEEP Administration Ondansetron HCl 4 mg 07/26/19 14:50 07/27/19 08:54 Zofran Injection IVPB 4 mg Q8H PRN Administration NAUSEA AND/OR VOMITING Oxycodone HCl 10 mg 07/28/19 00:38 07/30/19 11:19 Roxicodone - PO 10 mg Q4H PRN Administration PAIN LEVEL 7 - 10 Tiotropium [place] 2 puff 07/24/19 10:00 07/30/19 10:55 Spiriva Respimat IH 2 puff DAILY SANDEEP Administration Laboratory Results - last 24 hr 07/29/19 07/30/19 07/30/19 17:43 05:36 06:55 WBC 7.5 RBC 3.41 L Hgb 7.8 L Hct 25.9 L MCV 76.1 L MCH 23.0 L MCHC 30.2 L RDW 22.3 H Plt Count 179 MPV 7.7 Sodium Potassium Chloride Carbon Dioxide Anion Gap BUN Creatinine Est GFR (CKD-EPI)AfAm Est GFR (CKD-EPI)NonAf POC Glucometer 111 97 Random Glucose Calcium 07/30/19 07/30/19 06:55 11:35 WBC RBC Hgb Hct MCV MCH MCHC RDW Plt Count MPV Sodium 144 Potassium 3.5 Chloride 106 Carbon Dioxide 33 H Anion Gap 6 L BUN 4.1 L Creatinine 0.8 Est GFR (CKD-EPI)AfAm 93.53 Est GFR (CKD-EPI)NonAf 80.70 POC Glucometer 95 Random Glucose 91 Calcium 8.4 L Right forehead-- crusted lesions edematous eyelid conjuctiva is erythematous S1 S2 RRR Lungs no ronchi Left axilla-- no swelling ext -- no edema PLAN continue with Acyclovir IV fluids-- add KCL off gabapentin as she had hallucinations MRI bvrain pending Neurology eval noted continue with pain meds ophthal eval --> consult is pending Problem List - Problems (1) MRSA (methicillin resistant Staphylococcus aureus) carrier Code(s): Z22.322 - CARRIER OR SUSPECTED CARRIER OF METHICILLIN RESIS STAPH (2) Zoster Code(s): B02.9 - ZOSTER WITHOUT COMPLICATIONS (3) Asthma with COPD Code(s): J44.9 - CHRONIC OBSTRUCTIVE PULMONARY DISEASE, UNSPECIFIED; J45.909 - UNSPECIFIED ASTHMA, UNCOMPLICATED
--- NOTE | 2019-07-30 19:59 | CONS ---
DATE OF CONSULTATION: DATE OF DICTATION: 07/30/2019 OPHTHALMOLOGY CONSULTATION I was asked to see the patient, who has been admitted to the hospital with herpes zoster outbreak on the right side of her face near her right eye. Her vision today measures approximately 20/20 in both eyes using the near card with her reading glasses. Her eye pressure measures 21 in the right eye and 18 in the left eye. Her conjunctiva was slightly inflamed, but there is no evidence of keratitis or conjunctivitis in either eye. Her pupils were equally round and responsive to light stimulation. Her ocular motility was full. She did have zoster dermatitis on the skin around the right eye, but it did not appear to have any significant inflammation in her eye, the patient said she was comfortable and did not need any additional attention at this time. She was advised to see her primary stone driller helper, Dr. Clive Hinkle when she is discharged from the hospital. PASTORA MURILLO M.D. [id number]
[2019-07-30] MEDS: AMITRIPTYLINE HCL 25 MG TABLET (FP) PO SCH (21:36)
[2019-07-30] MEDS: ATORVASTATIN CA 10 MG TABLET (FP) PO SCH (21:36)
[2019-07-31] MEDS ORDERED: PT OWN MED DRAWER 7, Y5N ONE (01:31)
[2019-07-31] MEDS: ACYCLOVIR INJECTION 750 MG in DEXTROSE 5%-WATER - 100 ML IVPB SCH ×2 (01:48→10:33)
--- NOTE | 2019-07-31 08:39 | PN ---
Progress Note (short form) - Note Progress Note: 59 year old female history of HTN, HLD, DM, Atrial fibrillatio non eliqus and uvitis. Patient present for esvere headhace for three days ago before coming to hospital. Patient is being treated for MRSA for cellulitis and she was getting iv vanco by picc line. patient has not had any fever, high wbc or neck stiffness . Patient denies seeing double vision . At time she was confused transiently. At this time she was seen at bedside with nurse and she denies any headhace or any other focal neurological symptoms. Patient could not do mri of brain , and she has been feeling better and no fever and headhace is better NEUROLOGICAL EXAMINATION Alert oriented x 3, neck is supple, afebrile vss pupils reactive there is right eyelid edema and there is rash in right v1 distribution, there is mild swelling right eyelid no face asymmetry, sensation on face is normal moving all extremity sensation is normal at times she has difficulty moving her eye but lateral she was able to moving her eye in all direction and there is no diplopia ct head is unremarkable on july 24 Assessment/PLAN 1. Right v1 herpetic neuralgia, she is on iv acylovir and neurontin and elavil for neuropathic pain. Pain is under control Plan: clinically there is no evidence of encephalitis or meningitis , She can be discharged from neuro point of view - continue Acyclovir and supprotive care since could not get iv line, would do mri of brain without contrast Thnaking you so much Alfonso Damon MD
[2019-07-31] MEDS: CHOLECALCIFEROL (VIT D3) 1,000 UNIT (25 MCG) TABLET PO SCH (10:31)
[2019-07-31] MEDS: APIXABAN 5 MG TABLET PO SCH ×2 (10:32→22:02)
[2019-07-31] MEDS: CYANOCOBALAMIN 1,000 MCG TABLET (FP) PO SCH (10:32)
[2019-07-31] MEDS: DOCUSATE SODIUM 100 MG CAPSULE (FP) PO SCH ×2 (10:32→22:02)
[2019-07-31] MEDS: FAMOTIDINE 20 MG TABLET PO SCH ×2 (10:32→22:03)
[2019-07-31] MEDS: BUDESONIDE/FORMETEROL FUMARATE 160/4.5 mcg INHALER IH SCH ×2 (10:33→22:04)
[2019-07-31] MEDS: TIOTROPIUM BROMIDE 2.5 MCG (SPIRIVA) RESPIMAT INHALER IH SCH (10:33)
[2019-07-31] MEDS: SODIUM CHLORIDE 0.9%/KCL 20 MEQ/1,000 ML INFUS.BAG IV SCH (11:40)
[2019-07-31] MEDS ORDERED: LORazepam 2 MG/ML SDV VIAL IVPUSH ONE ×2 (11:56→12:45)
--- NOTE | 2019-07-31 12:02 | PN ---
Progress Note (short form) - Note Progress Note: pain better with meds but gets shooting sharp pains in forehead vision in right eye slightly better as the swelling has reduced Right forehead-- crusted lesions edematous eyelid conjuctiva is erythematous S1 S2 RRR Lungs no ronchi Left axilla-- no swelling ext -- no edema PLAN continue with Acyclovir IV fluids-- add KCL off gabapentin as she had hallucinations MRI bvrain pending Neurology eval noted continue with pain meds ophthal eval --> consult is pending Problem List - Problems (1) MRSA (methicillin resistant Staphylococcus aureus) carrier Code(s): Z22.322 - CARRIER OR SUSPECTED CARRIER OF METHICILLIN RESIS STAPH (2) Zoster Code(s): B02.9 - ZOSTER WITHOUT COMPLICATIONS (3) Asthma with COPD Code(s): J44.9 - CHRONIC OBSTRUCTIVE PULMONARY DISEASE, UNSPECIFIED; J45.909 - UNSPECIFIED ASTHMA, UNCOMPLICATED
[2019-07-31] MEDS: ACETAMINOPHEN 325 MG TABLET (FP) PO PRN (12:33)
[2019-07-31] MEDS: TRIAMCINOLONE ACET 0.025% CREAM 15 GM TUBE TP SCH ×2 (13:31→22:01)
--- NOTE | 2019-07-31 14:40 | PN ---
Progress Note (short form) - Note Progress Note: seen by optho, no hsv in her eye Vital Signs Period Temp Pulse Resp BP Sys/Jordan Pulse Ox Last 24 Hr 98.2 F-98.6 F 96-100 18-20 122-132/70-76 99 cor-rrr lungs clear abd soft,nt ext no edema itcy rash right forehead and scalp- c/w drying zoster CBC, BMP 07/30/19 06:55 07/30/19 06:55 Microbiology 07/27/19 14:00 Blood - Peripheral Venous Blood Culture - Preliminary NO GROWTH OBTAINED AFTER 96 HOURS, INCUBATION TO CONTINUE FOR 1 DAYS. 07/27/19 13:48 Blood - Peripheral Venous Blood Culture - Preliminary NO GROWTH OBTAINED AFTER 96 HOURS, INCUBATION TO CONTINUE FOR 1 DAYS. a/p zoster- V1- s/p 7 days iv acyclovir will d/c acyclovir neuro has ordered MRI- patient reports she has been getting confused at night for years! history of mrsa abscess- resolved DM asthma/copd d/w dr osborne would do mrsa decontaminaiton after discharge home and zoster has completely healed Problem List - Problems (1) Headache Code(s): R51 - HEADACHE Qualifiers: Headache type: unspecified Headache chronicity pattern: acute headache Intractability: intractable Qualified Code(s): R51 - Headache (2) Zoster Code(s): B02.9 - ZOSTER WITHOUT COMPLICATIONS (3) MRSA (methicillin resistant Staphylococcus aureus) carrier Code(s): Z22.322 - CARRIER OR SUSPECTED CARRIER OF METHICILLIN RESIS STAPH (4) Diabetes mellitus Code(s): E11.9 - TYPE 2 DIABETES MELLITUS WITHOUT COMPLICATIONS
[2019-07-31 16:10] VITALS: BMI 29.4
[2019-07-31] MEDS: oxyCODONE HCL 5 MG TABLET PO PRN (18:50)
[2019-07-31] MEDS: AMITRIPTYLINE HCL 25 MG TABLET (FP) PO SCH (22:02)
[2019-07-31] MEDS: ATORVASTATIN CA 10 MG TABLET (FP) PO SCH (22:02)
[2019-08-01] MEDS: oxyCODONE HCL 5 MG TABLET PO PRN ×2 (00:26→10:12)
[2019-08-01] MEDS ORDERED: NYSTATIN POWDER 100,000 UNITS/GM - 15 GM TOPICAL POWDER TP ONE (05:11)
--- NOTE | 2019-08-01 05:16 | HOSP ---
Subjective - Review of Symptoms Events since last encounter: hospitalist encounter Was notified by the RN, that the patient reports pruritus under her abdominal fold. Was asked to assess. Arrived to bedside patient is AAOx3, reports pruritus and irritation to her abdominal fold since early am. PE performed see EMR Plan: Nystatin Powder Other Systems: integumentary: pruritus Physical Examination Vital Signs: Vital Signs Temperature 98.1 F 07/31/19 17:25 Pulse Rate 101 H 07/31/19 23:00 Respiratory Rate 20 07/31/19 23:00 Blood Pressure 137/79 07/31/19 23:00 O2 Sat by Pulse Oximetry (%) 99 07/31/19 21:00 Constitutional: Yes: Well Nourished, No Distress, Calm Eyes: Yes: WNL, Conjunctiva Clear, EOM Intact, PERRL HENT: Yes: Atraumatic, Normocephalic, Other (itcy rash right forehead and scalp - c/w drying zoster) Neck: Yes: WNL, Supple, Trachea Midline Cardiovascular: Yes: Regular Rate and Rhythm, S1, S2 Respiratory: Yes: WNL, Regular, CTA Bilaterally Gastrointestinal: Yes: Normal Bowel Sounds, Soft, Abdomen, Obese Peripheral Pulses WNL: Yes Integumentary: Yes: Erythema, Rash Neurological: Yes: WNL, Alert, Oriented, Cran Nerves II-XII Intact ...Motor Strength: WNL Psychiatric: Yes: WNL, Alert, Oriented Labs: CBC, BMP 07/30/19 06:55 07/30/19 06:55 Hospitalist Encounter Assessment: 59 year old obese female with a history of hypertension, hyperlipidemia, diabetes mellitus, atrial fibrrilation on eliquis and uviitis Being treated for HSV
[2019-08-01] MEDS: APIXABAN 5 MG TABLET PO SCH (10:12)
[2019-08-01] MEDS: CYANOCOBALAMIN 1,000 MCG TABLET (FP) PO SCH (10:12)
[2019-08-01] MEDS: CHOLECALCIFEROL (VIT D3) 1,000 UNIT (25 MCG) TABLET PO SCH (10:13)
[2019-08-01] MEDS: TIOTROPIUM BROMIDE 2.5 MCG (SPIRIVA) RESPIMAT INHALER IH SCH (10:14)
[2019-08-01] MEDS: DOCUSATE SODIUM 100 MG CAPSULE (FP) PO SCH (10:14)
[2019-08-01] MEDS: FAMOTIDINE 20 MG TABLET PO SCH (10:14)
[2019-08-01] MEDS: BUDESONIDE/FORMETEROL FUMARATE 160/4.5 mcg INHALER IH SCH (10:14)
[2019-08-01] MEDS: TRIAMCINOLONE ACET 0.025% CREAM 15 GM TUBE TP SCH (10:33)
[2019-08-01] MEDS: ONDANSETRON 4 MG/2 ML VIAL IVPB PRN ×2 (10:55→11:00)
--- NOTE | 2019-08-01 11:22 | PN ---
Problem List - Problems (1) MRSA (methicillin resistant Staphylococcus aureus) carrier Code(s): Z22.322 - CARRIER OR SUSPECTED CARRIER OF METHICILLIN RESIS STAPH (2) Zoster Code(s): B02.9 - ZOSTER WITHOUT COMPLICATIONS (3) Asthma with COPD Code(s): J44.9 - CHRONIC OBSTRUCTIVE PULMONARY DISEASE, UNSPECIFIED; J45.909 - UNSPECIFIED ASTHMA, UNCOMPLICATED
[2019-08-01 11:31] VITALS: BP 120/80; PULSE 92; TEMP 97.8
--- NOTE | 2019-08-01 11:48 | DS ---
Physical Examination Vital Signs: Vital Signs Temperature 97.8 F 08/01/19 10:00 Pulse Rate 92 H 08/01/19 10:00 Respiratory Rate 20 08/01/19 10:00 Blood Pressure 120/80 08/01/19 10:00 O2 Sat by Pulse Oximetry (%) 99 07/31/19 21:00 Constitutional: Yes: No Distress, Calm Cardiovascular: Yes: Regular Rate and Rhythm Respiratory: Yes: Diminished. No: Rhonchi, SOB Gastrointestinal: Yes: Normal Bowel Sounds, Soft, Other (infra- abdominal folds- - fungal rash). No: Tenderness Labs: CBC, BMP 07/30/19 06:55 07/30/19 06:55 Discharge Summary Problems reviewed: Yes Reason For Visit: HEADACHE Current Active Problems Headache (Acute) MRSA (methicillin resistant Staphylococcus aureus) carrier (Acute) Zoster (Acute) Hospital Course: Admitted for severe headaches-- found ot have herpes zoster in right forehead around V1 region Seen by ID-- on Acyclovir IV Seen by Neurology -- MRI recomended for hallucinations -- which was caused by Neurontin-- Neurontin dc and hallucinations subsided She completed iv acyclovir Pt gives a h/o confused state even as an outpt-- will do open MRI brain as outpt as pt is claustrophobic EEG-- normal Seen by Ophthal-- no eye involvement stable for dc home Mycolog for the abd folds Condition: Stable - Instructions Diet, Activity, Other Instructions: Decolonization-- use mupirocin ointment in nostrils 2 daily x 10 days and Hibiclens for 2 weeks Referrals: Cristal Ludwig MD [Primary Care Provider] - - Home Medications Comprehensive Discharge Medication List: Ambulatory Orders Apixaban [Eliquis] 5 mg PO BID 05/17/19 Atorvastatin Calcium [Lipitor] 10 mg PO HS 05/17/19 Cholecalciferol (Vitamin D3) [Vitamin D -] 2,000 unit PO DAILY 05/17/19 Cyanocobalamin [Vitamin B12 -] 1,000 mcg PO DAILY 05/17/19 Cyclosporine [Restasis] 1 each OS BID 05/17/19 Diltiazem Cd [Cardizem Cd -] 300 mg PO DAILY 05/17/19 Levalbuterol Tartrate [Xopenex Hfa] 1 puff IH BID PRN 05/17/19 [place]-3S/Dha/Epa/Fish Oil [Fish Oil 1,000 mg Softgel] 1 each PO DAILY 05/17/19 Roflumilast [Daliresp] 500 mcg PO DAILY 05/17/19 Tiotropium [place] [Spiriva] 18 mcg IH DAILY 05/17/19 clonazePAM [Klonopin -] 0.5 mg PO PRN PRN 05/17/19 Amitriptyline HCl [Elavil -] 50 mg PO HS tablet 05/21/19 Azithromycin 250 mg PO Q2D #60 tablet 06/18/19 Budesonide/Formeterol Fumarate [SYMBICORT 160/4.5mcg -] 1 inh PO BID 07/01/19 Famotidine [Pepcid -] 40 mg PO BID 07/01/19 Levalbuterol HCl [Xopenex] 0.63 mg IH RTID vial.neb. 07/07/19 Mag Hydrox/Al Hydrox/Simeth [Mylanta Oral Suspension -] 30 ml PO Q8H PRN cup Glipizide Xl 2.5 mg PO DAILY 07/17/19 Glipizide Xl [Glucotrol Xl -] 2.5 mg PO DAILY@0700 #14 tab.er.24 07/19/19 Chlorhexidine Gluconate [Hibiclens For Decolonization -] 1 applic TP DAILY #1 bottle 08/01/19 Mupirocin Ointment [Bactroban Ointment (For Decolonization) -] 1 applic TP BID # 7 applic 08/01/19 Nystatin/Triamcinolone Top Cr [Mycolog II Cream -] 1 applic TP BID #7 applic 08/08 Oxycodone HCl 5 mg PO Q6H #40 tablet MDD 4 08/01/19 Triamcinolone 0.025% Cream [Aristocort 0.025% Cream -] 1 gm TP BID #1 tube 08/01
[2019-08-01] MEDS ORDERED: NYSTATIN/TRIAMCINOLONE TOPICAL CREAM 15 GM TUBE TP SCH (12:00)
[2019-08-01] MEDS: SODIUM CHLORIDE 0.9%/KCL 20 MEQ/1,000 ML INFUS.BAG IV SCH (12:00)
--- NOTE | 2019-08-01 12:13 | PN ---
Progress Note (short form) - Note Progress Note: 59 year old female history of HTN, HLD, DM, Atrial fibrillatio non eliqus and uvitis. Patient present for esvere headhace for three days ago before coming to hospital. Patient is being treated for MRSA for cellulitis and she was getting iv vanco by picc line. patient has not had any fever, high wbc or neck stiffness . Patient denies seeing double vision . At time she was confused transiently. At this time she was seen at bedside with nurse and she denies any headhace or any other focal neurological symptoms. Patient could not do mri of brain , and she has been feeling better and no fever and headhace is better. She told us that she do get transiently confused for a long time ? panic reactions. NEUROLOGICAL EXAMINATION Alert oriented x 3, neck is supple, afebrile vss pupils reactive there is right eyelid edema and there is rash in right v1 distribution, there is mild swelling right eyelid no face asymmetry, sensation on face is normal moving all extremity sensation is normal at times she has difficulty moving her eye but lateral she was able to moving her eye in all direction and there is no diplopia ct head is unremarkable on july 24, mri of brain cant be done Assessment/PLAN 1. Right v1 herpetic neuralgia, she is on iv acylovir and neurontin and elavil for neuropathic pain. Pain is under control Plan: clinically there is no evidence of encephalitis or meningitis , She can be discharged from neuro point of view - continue Acyclovir and supprotive care follow up outpatient Thnaking you so much Alfonso Damon MD
[2019-08-01] MEDS ORDERED: PT OWN MED DRAWER 7, Y5N ONE (13:44)
[2019-08-01] MEDS ORDERED: NYSTATIN POWDER 100,000 UNITS/GM - 15 GM TOPICAL POWDER TP SCH (22:00)
== END 2019-08-01 15:00 | disposition home or self-care (01) | DRG 596 ==
LOC: JER 01:15 → EEVIPCON 05:25 → JERBED 05:25 → J8W 07-25 01:21
PROVIDERS: ADMIT Internal Medicine; ATTEND Internal Medicine
DX: B02.9 Zoster without complications (principal); R44.3 Hallucinations, unspecified; B02.31 Zoster conjunctivitis; B02.39 Other herpes zoster eye disease; R51 Headache; E11.9 Type 2 diabetes mellitus without complications; E78.5 Hyperlipidemia, unspecified; I48.91 Unspecified atrial fibrillation; I50.9 Heart failure, unspecified; E87.6 Hypokalemia; A49.02 Methicillin resistant Staphylococcus aureus infection, unspecified site; J44.9 Chronic obstructive pulmonary disease, unspecified; T42.6X5A Adverse effect of other antiepileptic and sedative-hypnotic drugs, initial encounter; J45.909 Unspecified asthma, uncomplicated
CPT/HCPCS: 36415; 70450-TC; 80048; 80053; 82962; 84443; 85025; 85027; 85610; 85651; 85730; 87040; 95816; 99285-25; J0131; J7030

== ENCOUNTER 2019-08-09 08:32 | Emergency (ER) | payer OTHER, BC ==
[2019-08-09 08:41] VITALS: BP 129/78; PULSE 107; TEMP 97.7; BMI 29.2
[2019-08-09] MEDS ORDERED: DEXAMETHASONE SOD PHOSPHATE 10 MG/1 ML VIAL IM ONE (09:13)
[2019-08-09] MEDS ORDERED: valACYclovir HCL 1000 MG TABLET PO ONE (09:13)
[2019-08-09] MEDS ORDERED: DEXAMETHASONE SOD PHOSPHATE 10 MG/1 ML VIAL ONE (09:20)
--- NOTE | 2019-08-09 09:21 | PDOC ---
History of Present Illness - General Chief Complaint: Pain Stated Complaint: SHINGLES,PAIN Time Seen by Provider: 08/09/19 08:46 History Source: Patient Exam Limitations: Clinical Condition - History of Present Illness Initial Comments: 08/09/19 09:30 Patient with past medical history of multiple comorbidities and multiple visits to the ED with complaint of abscesses and headaches from shingles presented with complaint of persistent right side pain to right side of face shooting up the back of her head from shingles and abscess to right axilla. Patient was discharged from the hospital 2 weeks ago for same symptoms and treated on vancomycin patient come back today as she feels she might need vancomycin treatment for her axilla abscess abscess MRSA. Patient was advised to do mupirocin wash after discharge and follow-up with ID from last hospital visit. Denies fever, chills, dizziness, nausea, vomiting. Patient report pain shooting to right side of face. Patient has not taken anything for symptoms Is this a multiple visit Asthma Patient?: No Timing/Duration: getting worse Severity: moderate Past History - Past Medical History Allergies/Adverse Reactions: Allergies Allergy/AdvReac Type Severity Reaction Status Date / Time Penicillins Allergy Hives Verified 08/09/19 08:38 Sulfa (Sulfonamide Allergy Hives Verified 08/09/19 08:38 Antibiotics) [Sulfa(Sulfonamide Antibiotics)] Home Medications: Ambulatory Orders Apixaban [Eliquis] 5 mg PO BID 05/17/19 Atorvastatin Calcium [Lipitor] 10 mg PO HS 05/17/19 Cholecalciferol (Vitamin D3) [Vitamin D -] 2,000 unit PO DAILY 05/17/19 Cyanocobalamin [Vitamin B12 -] 1,000 mcg PO DAILY 05/17/19 Cyclosporine [Restasis] 1 each OS BID 05/17/19 Diltiazem Cd [Cardizem Cd -] 300 mg PO DAILY 05/17/19 Levalbuterol Tartrate [Xopenex Hfa] 1 puff IH BID PRN 05/17/19 [place]-3S/Dha/Epa/Fish Oil [Fish Oil 1,000 mg Softgel] 1 each PO DAILY 05/17/19 Roflumilast [Daliresp] 500 mcg PO DAILY 05/17/19 Tiotropium [place] [Spiriva] 18 mcg IH DAILY 05/17/19 clonazePAM [Klonopin -] 0.5 mg PO PRN PRN 05/17/19 Amitriptyline HCl [Elavil -] 50 mg PO HS tablet 05/21/19 Azithromycin 250 mg PO Q2D #60 tablet 06/18/19 Budesonide/Formeterol Fumarate [SYMBICORT 160/4.5mcg -] 1 inh PO BID 07/01/19 Famotidine [Pepcid -] 40 mg PO BID 07/01/19 Levalbuterol HCl [Xopenex] 0.63 mg IH RTID vial.neb. 07/07/19 Mag Hydrox/Al Hydrox/Simeth [Mylanta Oral Suspension -] 30 ml PO Q8H PRN cup Glipizide Xl 2.5 mg PO DAILY 07/17/19 Glipizide Xl [Glucotrol Xl -] 2.5 mg PO DAILY@0700 #14 tab.er.24 07/19/19 Chlorhexidine Gluconate [Hibiclens For Decolonization -] 1 applic TP DAILY #1 bottle 08/01/19 Mupirocin Ointment [Bactroban Ointment (For Decolonization) -] 1 applic TP BID # 7 applic 08/01/19 Nystatin/Triamcinolone Top Cr [Mycolog II Cream -] 1 applic TP BID #7 applic 08/08 Oxycodone HCl 5 mg PO Q6H #40 tablet MDD 4 08/01/19 Triamcinolone 0.025% Cream [Aristocort 0.025% Cream -] 1 gm TP BID #1 tube 08/01 Prednisone [Prednisone 50 MG TABLETS] 50 mg PO DAILY #7 tablet 08/09/19 Valacyclovir HCl [Valtrex -] 1,000 mg PO BID 7 Days #14 tablet 08/09/19 Anemia: Yes Asthma: Yes Cancer: No Cardiac Disorders: Yes (Tachycardia, a-fib) CVA: Yes ("RIGHT EYE ONLY") COPD: Yes CHF: No DVT: No Dementia: No Diabetes: Yes GI Disorders: Yes (GERD) Disorders: No HTN: Yes Hypercholesterolemia: Yes Liver Disease: No Seizures: No Thyroid Disease: Yes (NODULES) - Surgical History Abdominal Surgery: Yes (POLYP REMOVED FROM UTERUS 09/06/13) Appendectomy: No Cardiac Surgery: No Cholecystectomy: No GI Surgery: Yes (umbilical hernia/wound vac) Lung Surgery: No Neurologic Surgery: No Orthopedic Surgery: Yes (BUNION REMOVAL RT FOOT 2014) - Immunization History Immunization Up to Date: Yes - Psycho Social/Smoking Cessation Hx Smoking Status: Yes Smoking History: Unknown if ever smoked Have you smoked in the past 12 months: No Number of Cigarettes Smoked Daily: 0 If you are a former smoker, when did you quit?: 2012 'Breaking Loose' booklet given: 10/28/13 Hx Alcohol Use: No Drug/Substance Use Hx: No Substance Use Type: None Hx Substance Use Treatment: No Review of Systems - Review of Systems Able to Perform ROS?: Yes Is the patient limited [place] proficient: No Constitutional: No: Fever, Malaise HEENTM: No: Symptoms Reported, See HPI, Eye Pain, Blurred Vision, Tearing, Recent change in vision, Double Vision, Cataracts, Ear Pain, Ocular Prothesis, Ear Discharge, Nose Pain, Nose Congestion, Tinnitus, Nose Bleeding, Hearing Loss , Throat Pain, Throat Swelling, Mouth Pain, Dental Problems, Difficulty Swallowing, Mouth Swelling, Other Respiratory: No: Symptoms reported, See HPI, Cough, Orthopnea, Shortness of Breath, SOB with Exertion, SOB at Rest, Stridor, Wheezing, Productive cough, Hemoptysis, Other Cardiac (ROS): No: Symptoms Reported, See HPI, Chest Pain, Edema, Irregular Heart Rate, Lightheadedness, Palpitations, Syncope, Chest Tightness, Other ABD/GI: No: Symptoms Reported, Nausea, Vomiting Musculoskeletal: Yes: Symptoms Reported, See HPI, Muscle Pain (right side of face pain from shingles) Integumentary: Yes: Symptoms Reported, See HPI, Rash (shingles to right side of face) Neurological: Yes: Symptoms reported, Headache. No: Dizziness All Other Systems: Reviewed and Negative *Physical Exam - Vital Signs Last Vital Signs Temp Pulse Resp BP Pulse Ox 97.7 F 107 H 18 129/78 99 08/09/19 08:39 08/09/19 08:39 08/09/19 08:39 08/09/19 08:39 08/09/19 08:39 - Physical Exam 08/09/19 09:17 GENERAL: Well developed, well nourished. Awake and alert in mild acute distress. HEENT: Normocephalic, atraumatic. PERRLA, EOMI. No conjunctival pallor. Sclera are non- icteric. Moist mucous membranes. Oropharynx is clear. NECK: Supple. Full ROM. No JVD. Carotid pulses 2+ and symmetric, without bruits. No thyromegaly. No lymphadenopathy. CARDIOVASCULAR: Regular rate and rhythm. No murmurs, rubs, or gallops. Distal pulses are 2+ and symmetric. PULMONARY: No evidence of respiratory distress. MUSCULOSKELETAL Normal range of motion at all joints. No bony deformities or tenderness. SKIN: Warm and dry. Normal capillary refill. multiple dark vesicular lesions to right side of forehead and face w/o excoriations . 1cm hard induration with 1mm area of protruding fluctuant induration to abscess of right axilla. no skin erythema NEUROLOGICAL: Alert, awake, appropriate. Cranial nerves 2-12 intact. No deficits to light touch in face, upper extremities and lower extremities. No motor deficits in the in face, upper extremities and lower extremities. Normal speech. Toes are down-going bilaterally. Gait is normal without ataxia. PSYCHIATRIC: Cooperative. Good eye contact. Appropriate mood and affect. General Appearance: Yes: Nourished, Appropriately Dressed, Mild Distress Procedures - Incision and Drainage I&D Site: Right: Axilla (2cm abscess) Betadine cleansed: Yes Blade Size: 18 guage Plain Packing: No Dressing: Yes Medical Decision Making - Medical Decision Making 08/09/19 09:33 Patient with past medical history of multiple comorbidities and multiple visits to the ED with complaint of abscesses and headaches from shingles presented with complaint of persistent right side pain to right side of face shooting up the back of her head from shingles and abscess to right axilla. Patient was discharged from the hospital 2 weeks ago for same symptoms and treated on vancomycin patient come back today as she feels she might need vancomycin treatment for her axilla abscess abscess MRSA. Patient was advised to do mupirocin wash after discharge and follow-up with ID from last hospital visit. Denies fever, chills, dizziness, nausea, vomiting. Patient report pain shooting to right side of face. Patient has not taken anything for symptoms Exam significant for 1 cm area of abscess to right axillary with 1 mm area of protruding discoloration with soft induration to right axilla. No skin erythema or increased warmth. Multiple dark vesicular lesions to right side of face from shingles. Abscess of right axilla drained by cleaning the area with Betadine and draining with a 18-gauge needle by opening protruding soft induration. Small amount of purulent material obtained from abscess. Bacitracin applied to wound and wound covered with 2 x 2 gauze and Dermabond. Decadron 10 mg IM and Valtrex thousand milligrams p.o. ordered for shingles. Patient stable for discharge with advised to continue hot compresses and home with bruising to abscess with ID follow-up. Patient was discharged on Valtrex and prednisone twice daily for a week for shingles. Patient stable for discharge Discharge - Discharge Information Problems reviewed: Yes Clinical Impression/Diagnosis: Abscess of axilla, right Zoster Qualifiers: Herpes zoster complications: without complications Qualified Code(s): B02.9 - Zoster without complications Condition: Stable Disposition: HOME - Admission No - Additional Discharge Information Prescriptions: Prednisone [Prednisone 50 MG TABLETS] 50 mg PO DAILY #7 tablet Valacyclovir HCl [Valtrex -] 1,000 mg PO BID 7 Days #14 tablet - Follow up/Referral Referrals: Cristal Ludwig MD [Primary Care Provider] - - Patient Discharge Instructions Patient Printed Discharge Instructions: DI for Shingles, DI for Skin Abscess Additional Instructions: Continue with hot compress to abscess 2-3 times a day as needed for swelling. Apply mupirocin cream twice a day to wound. Take prescribed medication as prescribed for shingles. Follow-up with infectious disease. - Post Discharge Activity
[2019-08-09] MEDS ORDERED: valACYclovir HCL 500 MG TABLET (FP) ONE (09:23)
== END 2019-08-09 09:52 | disposition home or self-care (01) ==
LOC: JERFT 08:32
PROC: 0X940ZZ Drainage of Right Axilla, Open Approach (ICD-10-PCS; principal; 2019-08-09)
PROC: 3E0233Z Introduction of Anti-inflammatory into Muscle, Percutaneous Approach (ICD-10-PCS; 2019-08-09)
DX: L02.411 Cutaneous abscess of right axilla (principal); B02.9 Zoster without complications; Z88.0 Allergy status to penicillin; Z88.2 Allergy status to sulfonamides; I10 Essential (primary) hypertension; E11.9 Type 2 diabetes mellitus without complications; Z79.84 Long term (current) use of oral hypoglycemic drugs; D64.9 Anemia, unspecified; J45.998 Other asthma; J44.9 Chronic obstructive pulmonary disease, unspecified; K21.9 Gastro-esophageal reflux disease without esophagitis; I48.91 Unspecified atrial fibrillation; Z79.01 Long term (current) use of anticoagulants; Z86.73 Personal history of transient ischemic attack (TIA), and cerebral infarction without residual deficits
CPT/HCPCS: 87070; 87186; 87205; 99281-25; J1100

== ENCOUNTER 2019-09-13 16:49 | Inpatient (IN) | payer OTHER, BC ==
--- NOTE | 2019-09-13 17:06 | PDOC ---
Rapid Medical Evaluation Time Seen by Provider: 09/13/19 17:04 Medical Evaluation: Allergies Allergy/AdvReac Type Severity Reaction Status Date / Time Penicillins Allergy Hives Verified 08/09/19 08:38 Sulfa (Sulfonamide Allergy Hives Verified 08/09/19 08:38 Antibiotics) [Sulfa(Sulfonamide Antibiotics)] 09/13/19 17:04 Pt c/o:worsening cough, wheezing, sob, dc yesterday with copd exacerbation Pt on brief exam: noted tachypnea, + intercostal muscle usage, exp wheeze edson Pt ordered for: holden pt to proceed to the ED Discharge Disposition - Diagnosis Shortness of breath - Discharge Dispostion Condition at time of disposition: Guarded - Referrals - Patient Instructions - Post Discharge Activity
[2019-09-13] MEDS ORDERED: LEVALBUTEROL HCL 0.63 MG/3 ML VIAL.NEB. IH ONE (17:10)
[2019-09-13] MEDS ORDERED: ALBUTEROL SO4 2.5/IPRATROPIUM 0.5 INH SOL 3 ML VIAL.NEB. NEB ONE (17:40)
--- NOTE | 2019-09-13 17:40 | PDOC ---
History of Present Illness - General Chief Complaint: Asthma Stated Complaint: DIFFICULTY BREATHING Time Seen by Provider: 09/13/19 17:04 - History of Present Illness Initial Comments: Ms. Mclain is a 59 y/o female with PMH significant for COPD, asthma, HTN, HLD, DM , a-fib, on eliquis, CVA affecting right eye, presenting today with shortness of breath, wheezes, cough, that started today. She was seen in this hospital over the past several days for same symptoms. She took 40 mg of prednisone today and tried using her nebulizer and inhaler as well. No home O2. Reports that her symptoms started this morning and got worse today. Reports cough, wheezing, and shortness of breath. No chest pain. No fever/chills. No abdominal pain. No lower extremity swelling. Meds: prednisone, azithromycin, eliquis, nebulizer, inhaler Pulm: Dr. Flores Past History - Past Medical History Allergies/Adverse Reactions: Allergies Allergy/AdvReac Type Severity Reaction Status Date / Time Penicillins Allergy Hives Verified 09/13/19 17:04 Sulfa (Sulfonamide Allergy Hives Verified 09/13/19 17:04 Antibiotics) [Sulfa(Sulfonamide Antibiotics)] Home Medications: Ambulatory Orders Amitriptyline HCl [Elavil -] 75 mg PO HS 09/13/19 Apixaban [Eliquis] 5 mg PO BID 09/13/19 Atorvastatin Calcium [Lipitor] 10 mg PO HS 09/13/19 Cholecalciferol (Vitamin D3) [Vitamin D3 -] 2,000 unit PO DAILY 09/13/19 Clobetasol/Skin Cleanser No.28 [[place] 0.05% Kit] 1 each TP BID 09/13/19 Cyanocobalamin [Vitamin B12 -] 1,000 mcg PO DAILY 09/13/19 Cyclosporine [Restasis] 1 drop OU ASDIR 09/13/19 Diltiazem Cd [Cardizem Cd -] 300 mg PO DAILY 09/13/19 Gabapentin 300 mg PO ASDIR 09/13/19 Hydroxyzine HCl 2 tab PO BID PRN 09/13/19 Prednisolone 1% Ophthalmic [Pred Forte 1% -] 1 drop OU ASDIR 09/13/19 Prednisone 50 mg PO ASDIR 09/13/19 Tiotropium [place] [Spiriva] 1 inh IN DAILY 09/13/19 Anemia: Yes Asthma: Yes Cancer: No Cardiac Disorders: Yes (Tachycardia, a-fib) CVA: Yes ("RIGHT EYE ONLY") COPD: Yes CHF: No DVT: No Dementia: No Diabetes: Yes GI Disorders: Yes (GERD) Disorders: No HTN: Yes Hypercholesterolemia: Yes Liver Disease: No Seizures: No Thyroid Disease: Yes (NODULES) - Surgical History Abdominal Surgery: Yes (POLYP REMOVED FROM UTERUS 09/06/13) Appendectomy: No Cardiac Surgery: No Cholecystectomy: No GI Surgery: Yes (umbilical hernia/wound vac) Lung Surgery: No Neurologic Surgery: No Orthopedic Surgery: Yes (BUNION REMOVAL RT FOOT 2014) - Immunization History Immunization Up to Date: Yes - Psycho Social/Smoking Cessation Hx Smoking Status: Yes Smoking History: Never smoked Have you smoked in the past 12 months: No Number of Cigarettes Smoked Daily: 0 If you are a former smoker, when did you quit?: 2012 'Breaking Loose' booklet given: 10/28/13 Hx Alcohol Use: No Drug/Substance Use Hx: No Substance Use Type: None Hx Substance Use Treatment: No Respiratory Specific PMHX - Complaint Specific PMHX Hx Bronchitis: Yes Hx Pneumonia: No Hx Pulmonary Embolus: No Hx TB (Tuberculosis): No Review of Systems - Review of Systems Comments:: GENERAL/CONSTITUTIONAL: No fever or chills. No weakness._ HEAD, EYES, EARS, NOSE AND THROAT: No change in vision. No change in hearing. No sore throat._ CARDIOVASCULAR: No chest pain. Reports shortness of breath. RESPIRATORY: Reports cough. GASTROINTESTINAL: No nausea, vomiting, diarrhea or constipation._ GENITOURINARY: No dysuria, frequency, or change in urination._ MUSCULOSKELETAL: No joint or muscle swelling or pain. No neck or back pain._ SKIN: No rash_ NEUROLOGIC: No headache, vertigo, loss of consciousness, or change in strength/ sensation._ ENDOCRINE: No increased thirst. No abnormal weight change_ HEMATOLOGIC/LYMPHATIC: No anemia, easy bleeding, or history of blood clots._ ALLERGIC/IMMUNOLOGIC: No hives or skin allergy._ *Physical Exam - Vital Signs Last Vital Signs Temp Pulse Resp BP Pulse Ox 98.2 F 18 126/76 99 09/13/19 17:06 09/13/19 17:06 09/13/19 17:06 09/13/19 17:06 - Physical Exam GENERAL: Awake, alert, and oriented to person/place/time, in no acute distress_ HEAD: No signs of trauma, normoc ephalic, atraumatic _ EYES: PERRLA, EOMI, sclera anicteric, conjunctiva clear_ ENT: Hearing grossly normal, nares patent, oropharynx clear without exudates. No uvular deviation. Moist mucosa_ NECK: Normal ROM, supple, no lymphadenopathy, JVD, or masses_ LUNGS: No distress, speaks in full sentences, diffuse wheezes in upper and lower lung currie. HEART: Regular rate and rhythm, normal S1 and S2, no murmurs appreciated, peripheral pulses normal and equal bilaterally._ ABDOMEN: Soft, nontender, normoactive bowel sounds. No guarding, no rebound. No masses_ EXTREMITIES: Normal inspection, Normal range of motion, no edema. No clubbing or cyanosis_ NEUROLOGICAL: Cranial nerves II through XII grossly intact. Normal speech, normal gait, no focal sensorimotor deficits _ SKIN: Warm, Dry, normal turgor, no rashes or lesions noted_ ED Treatment Course - LABORATORY CBC & Chemistry Diagram: 09/13/19 18:35 09/13/19 18:35 - RADIOLOGY Radiology Studies Ordered: Category Date Time Status CHEST X-RAY PORTABLE* [RAD] Stat Radiology 09/13/19 17:34 Ordered Medical Decision Making - Medical Decision Making 09/13/19 17:45 59F hx of COPD, HTN, HLD, a-fib, presenting with cough, shortness of breath, wheezing. -cbc, cmp -ekg, trop, cxr -coags -duonebs -solumedrol 09/13/19 20:03 Pt reassessed. Feeling better after duonebs. EKG shows sinus tachycardia, 116 bpm, no ST elevation/depression, QTc 447. CXR shows no acute intra thoracic pathology. Labs reviewed. Laboratory Last Values WBC 18.9 K/mm3 (4.0-10.0) H 09/13/19 18:35 RBC 4.04 M/mm3 (3.60-5.2) 09/13/19 18:35 Hgb 9.0 GM/dL (10.7-15.3) L 09/13/19 18:35 Hct 30.5 % (32.4-45.2) L 09/13/19 18:35 MCV 75.7 fl (80-96) L 09/13/19 18:35 MCH 22.2 pg (25.7-33.7) L 09/13/19 18:35 MCHC 29.4 g/dl (32.0-36.0) L 09/13/19 18:35 RDW 19.4 % (11.6-15.6) H 09/13/19 18:35 Plt Count 427 K/MM3 (134-434) 09/13/19 18:35 MPV 7.1 fl (7.5-11.1) L 09/13/19 18:35 Absolute Neuts (auto) 17.1 K/mm3 (1.5-8.0) H 09/13/19 18:35 Neutrophils % 90.5 % (42.8-82.8) H 09/13/19 18:35 Lymphocytes % 5.8 % (8-40) L D 09/13/19 18:35 Monocytes % 2.9 % (3.8-10.2) L 09/13/19 18:35 Eosinophils % 0.4 % (0-4.5) D 09/13/19 18:35 Basophils % 0.4 % (0-2.0) 09/13/19 18:35 Nucleated RBC % 0 % (0-0) 09/13/19 18:35 PT with INR 12.90 SEC (9.7-13.0) 09/13/19 18:35 INR 1.09 (0.83-1.09) 09/13/19 18:35 PTT (Actin FS) 23.3 SECONDS (25.2-36.5) L 09/13/19 18:35 Sodium 144 mmol/L (136-145) 09/13/19 18:35 Potassium 3.6 mmol/L (3.5-5.1) 09/13/19 18:35 Chloride 111 mmol/L (98-107) H 09/13/19 18:35 Carbon Dioxide 21 mmol/L (21-32) 09/13/19 18:35 Anion Gap 12 MMOL/L (8-16) 09/13/19 18:35 BUN 23.6 mg/dL (7-18) H 09/13/19 18:35 Creatinine 1.1 mg/dL (0.55-1.3) 09/13/19 18:35 Est GFR (CKD-EPI)AfAm 63.64 09/13/19 18:35 Est GFR (CKD-EPI)NonAf 54.91 09/13/19 18:35 Random Glucose 242 mg/dL (74-106) H 09/13/19 18:35 Calcium 8.5 mg/dL (8.5-10.1) 09/13/19 18:35 Total Bilirubin 0.2 mg/dL (0.2-1) 09/13/19 18:35 AST 14 U/L (15-37) L 09/13/19 18:35 ALT 22 U/L (13-61) 09/13/19 18:35 Alkaline Phosphatase 122 U/L (45-117) H 09/13/19 18:35 Creatine Kinase 36 U/L (26-192) 09/13/19 18:35 Troponin I < 0.02 ng/ml (0.00-0.05) 09/13/19 18:35 Total Protein 5.5 g/dl (6.4-8.2) L 09/13/19 18:35 Albumin 2.8 g/dl (3.4-5.0) L 09/13/19 18:35 09/13/19 20:36 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 Sampson. Discharge - Discharge Information Problems reviewed: Yes Clinical Impression/Diagnosis: Shortness of breath Condition: Stable - Admission Yes - Follow up/Referral Referrals: Cristal Ludwig MD [Primary Care Provider] - - Patient Discharge Instructions - Post Discharge Activity
[2019-09-13] MEDS: ALBUTEROL SO4 2.5/IPRATROPIUM 0.5 INH SOL 3 ML VIAL.NEB. NEB SCH ×4 (17:46→18:36)
[2019-09-13] MEDS ORDERED: methylPREDNISolone NA SUCC 125 MG/2 ML VIAL IVPUSH ONE (17:57)
--- NOTE | 2019-09-13 18:35 | PDOC ---
Documentation entered by Anai Johnson SCRIBE, acting as scribe for Sushma Peterson MD. Sushma Peterson MD: This documentation has been prepared by the Elizabeth golden Brenda, SCRIBE, under my direction and personally reviewed by me in its entirety. I confirm that the documentation accurately reflects all work, treatment, procedures, and medical decision making performed by me. Attending Attestation - Resident Resident Name: Agustin Manzano - ED Attending Attestation I have performed the following: I have examined & evaluated the patient, The case was reviewed & discussed with the resident, I agree w/resident's findings & plan, Exceptions are as noted - HPI HPI: 09/13/19 17: The patient is a 59 year old female with a significant PMH of COPD, asthma, HLD , HTN, DM, Afib (on eliquis) and CVA who presents with progressively worsening shortness of breath accompanied by a cough and wheezing since this morning. Patient reports being seen in [facility] for the same symtpoms recently and was diagnosed. Patient reports trying 40 mg of prednisone and her nebulizer, to no relief. The patient denies chest pain, headache and dizziness. Denies fever, chills, nausea, vomiting, diarrhea and constipation. Denies dysuria, frequency, urgency and hematuria. Allergies: NKA Past surgical history: Social history: No reported hx of tobacco use, alcohol use or illicit drug use. PCP: Cristal Amaya Pulmoary: Sandra - Physicial Exam PE: 09/13/19 18:01 GENERAL: The patient is in no acute distress, speaking in 3 word sentences, currently receiving a neb. ENT: Ears normal, nares patent, oropharynx clear without exudates. Moist mucous membranes. NECK: Normal range of motion, supple, no nuchal rigidity LUNGS: Breath sounds equal, bilateral wheezing and rhonchi noted on inspiration and expiration HEART: Regular rate and rhythm, normal S1 and S2 without murmur, rub or gallop. ABDOMEN: Soft, nontender, normoactive bowel sounds. No guarding, no rebound. EXTREMITIES: Normal range of motion, no edema. NEUROLOGICAL: Cranial nerves II through XII grossly intact. Normal speech. No focal neurological deficits. SKIN: Warm, Dry, normal turgor, no rashes or lesions noted. 09/13/19 18:32 - Medical Decision Making 09/13/19 18:34 59-year-old female presenting to the emergency department with a complaint of shortness of breath. Patient was admitted to the hospital this week for COPD/asthma exacerbation. Patient was discharged yesterday, feeling much better She awoke this morning and noted shortness of breath which had not improved despite neb treatments at home Patient denies chest pain Pulmonary examination reveals inspiratory and expiratory rhonchi and wheezing We will plan to readmit this patient for severe asthma/COPD exacerbation 09/13/19 20:54 EKG: Sinus tachycardia, rate of 116 bpm, axis is normal, Intervals are normal, no ST elevation or depression, LVH, Q waves lead III 09/13/19 20:54 Laboratory Tests 09/13/19 09/13/19 18:35 18:35 WBC 18.9 H Hgb 9.0 L Hct 30.5 L Plt Count 427 BUN 23.6 H Creatinine 1.1 Creatine Kinase 36 Troponin I < 0.02 Re admit for persistent shortness of breath/wheezing solumedrol given Nebs given clinical impression: persistent COPD/Asthma exacerbation
[2019-09-13] MEDS ORDERED: methylPREDNISolone NA SUCC 125 MG/2 ML VIAL ONE (18:40)
[2019-09-13 18:46] LABS: BASO % 0.4 % (0-2.0); EOS % 0.4 % (0-4.5); HEMATOCRIT 30.5 % (32.4-45.2); LYMPH % 5.8 % (8-40); MCH 22.2 pg (25.7-33.7); MCHC 29.4 g/dl (32.0-36.0); MEAN CELL VOLUME 75.7 fl (80-96); MEAN PLT VOLUME 7.1 fl (7.5-11.1); MONO % 2.9 % (3.8-10.2); NEUT % 90.5 % (42.8-82.8); PLATELET COUNT 427 K/MM3 (134-434); RBC 4.04 M/mm3 (3.60-5.2); RDW 19.4 % (11.6-15.6); WHITE BLOOD COUNT 18.9 K/mm3 (4.0-10.0)
[2019-09-13 19:00] LABS: INR 1.09 (0.83-1.09); PROTHROMBIN TIME (PATIENT) 12.9 SEC (9.7-13.0)
[2019-09-13 19:02] LABS: ACTIVATED PTT 23.3 SECONDS (25.2-36.5)
[2019-09-13 19:22] LABS: ALBUMIN 2.8 g/dl (3.4-5.0); ALK PHOS 122 U/L (45-117); ANION GAP 12 MMOL/L (8-16); BILIRUBIN,TOTAL 0.2 mg/dL (0.2-1); BLOOD UREA NITROGEN 23.6 mg/dL (7-18); CALCIUM 8.5 mg/dL (8.5-10.1); CHLORIDE 111 mmol/L (98-107); CO2 21 mmol/L (21-32); CREATININE 1.1 mg/dL (0.55-1.3); GLUCOSE,RANDOM 242 mg/dL (74-106); POTASSIUM 3.6 mmol/L (3.5-5.1); SGOT/AST 14 U/L (15-37); SGPT/ALT 22 U/L (13-61); SODIUM 144 mmol/L (136-145); TOT PROT 5.5 g/dl (6.4-8.2)
--- NOTE | 2019-09-13 20:43 | HP ---
Admitting History and Physical - Primary Care Physician PCP: Cristal Ludwig - Admission Chief Complaint: SOB History of Present Illness: This is a 59 y/o woman with a PMHx of COPD (sees Dr. Flores, on multiple medications with recent medication changes, has standing home Rx for prednisone which she self-starts for exacerbation, also on regular Azithromycin, triggered by cold, never intubated or admitted to ICU), Hypertension, Hyperlipidemia, DM, Afib on Eliquis, and right V1 shingles, recent admission 09/09-09/12 for COPD Exacerbation. Who presents to the ED for worsening SOB, wheezing. Patient reports completing her hospital course of steroids, and started her prednisone at home, using her nebulizer machine with no improvement with her breathing. patient appears very anxious, she speaks in full sentences. Patient denies fever , chills, dizziness, WALLS, CP, palpitations, AP, N/V/D, constipation, dysuria. History Source: Patient Limitations to Obtaining History: No Limitations - Past Medical History Cardiovascular: Yes: AFIB, CAD, CHF, Deep Vein Thrombosis, HTN, Hyperlipdemia Pulmonary: Yes: Bronchitis, COPD, Pneumonia, Pulmonary Embolus (on Eliquis) Gastrointestinal: Yes: GERD, Other (HERNIA REPAIR WITH COMPLICATIONS AND POST OP SBO) ...LMP: 06/30/13 Heme/Onc: Yes: B12 Deficiency Infectious Disease: Yes: MRSA Psych: Yes: Anxiety Musculoskeletal: Yes: Osteoarthritis Rheumatology: Yes: Other (OSTEOARTHRITIS) Endocrine: Yes: Diabetes Mellitus - Past Surgical History Past Surgical History: Yes: Hernia Repair - Smoking History Smoking history: Never smoked Have you smoked in the past 12 months: No Aproximately how many cigarettes per day: 0 If you are a former smoker, when did you quit?: 2013 - Alcohol/Substance Use Hx Alcohol Use: No History of Substance Use: reports: None - Social History Usual Living Arrangement: Yes: Alone ADL: Independent History of Recent Travel: No Home Medications - Allergies Allergies/Adverse Reactions: Allergies Allergy/AdvReac Type Severity Reaction Status Date / Time Penicillins Allergy Hives Verified 09/13/19 17:04 Sulfa (Sulfonamide Allergy Hives Verified 09/13/19 17:04 Antibiotics) [Sulfa(Sulfonamide Antibiotics)] - Home Medications Home Medications: Ambulatory Orders Amitriptyline HCl [Elavil -] 75 mg PO HS 09/13/19 Apixaban [Eliquis] 5 mg PO BID 09/13/19 Atorvastatin Calcium [Lipitor] 10 mg PO HS 09/13/19 Cholecalciferol (Vitamin D3) [Vitamin D3 -] 2,000 unit PO DAILY 09/13/19 Clobetasol/Skin Cleanser No.28 [[place] 0.05% Kit] 1 each TP BID 09/13/19 Cyanocobalamin [Vitamin B12 -] 1,000 mcg PO DAILY 09/13/19 Cyclosporine [Restasis] 1 drop OU ASDIR 09/13/19 Diltiazem Cd [Cardizem Cd -] 300 mg PO DAILY 09/13/19 Gabapentin 300 mg PO ASDIR 09/13/19 Hydroxyzine HCl 2 tab PO BID PRN 09/13/19 Prednisolone 1% Ophthalmic [Pred Forte 1% -] 1 drop OU ASDIR 09/13/19 Prednisone 50 mg PO ASDIR 09/13/19 Tiotropium [place] [Spiriva] 1 inh IN DAILY 09/13/19 Family Medical History Family History: Unable to Obtain Review of Systems - Review of Systems Constitutional: reports: No Symptoms Eyes: reports: No Symptoms HENT: reports: No Symptoms Neck: reports: No Symptoms Cardiovascular: reports: Shortness of Breath Respiratory: reports: Cough, Orthopnea, PND, SOB, SOB on Exertion, Wheezing Gastrointestinal: reports: No Symptoms Genitourinary: reports: No Symptoms Breasts: reports: No Symptoms Reported Musculoskeletal: reports: No Symptoms Integumentary: reports: No Symptoms Neurological: reports: No Symptoms Endocrine: reports: No Symptoms Hematology/Lymphatic: reports: No Symptoms Psychiatric: reports: No Symptoms Pain Intensity: 0 Physical Examination Vital Signs: Vital Signs Temperature 98.2 F 09/13/19 17:06 Pulse Rate Respiratory Rate 18 09/13/19 17:06 Blood Pressure 126/76 09/13/19 17:06 O2 Sat by Pulse Oximetry (%) 99 09/13/19 17:06 Constitutional: Yes: Well Nourished, Anxious, Mild Distress, Obese Eyes: Yes: WNL, Conjunctiva Clear, EOM Intact, PERRL HENT: Yes: WNL, Atraumatic, Normocephalic Neck: Yes: WNL, Supple, Trachea Midline Cardiovascular: Yes: Regular Rate and Rhythm, S1, S2 Respiratory: Yes: Cough, On Nasal O2, Rhonchi, SOB on Exertion, Wheezes. No: Accessory Muscle Use Gastrointestinal: Yes: WNL, Normal Bowel Sounds, Soft, Abdomen, Obese ...Rectal Exam: Yes: Deferred Renal/: Yes: WNL Breast(s): Yes: WNL Musculoskeletal: Yes: WNL Extremities: Yes: WNL Edema: No Peripheral Pulses WNL: Yes Neurological: Yes: WNL, Alert, Oriented, Cran Nerves II-XII Intact ...Motor Strength: WNL Psychiatric: Yes: WNL, Alert, Oriented Labs: CBC, BMP 09/13/19 18:35 09/13/19 18:35 Laboratory Results - last 24 hr 09/13/19 09/13/19 09/13/19 18:35 18:35 18:35 WBC 18.9 H RBC 4.04 Hgb 9.0 L Hct 30.5 L MCV 75.7 L MCH 22.2 L MCHC 29.4 L RDW 19.4 H Plt Count 427 MPV 7.1 L Absolute Neuts (auto) 17.1 H Neutrophils % 90.5 H Lymphocytes % 5.8 L D Monocytes % 2.9 L Eosinophils % 0.4 D Basophils % 0.4 Nucleated RBC % 0 PT with INR 12.90 INR 1.09 PTT (Actin FS) 23.3 L Sodium 144 Potassium 3.6 Chloride 111 H Carbon Dioxide 21 Anion Gap 12 BUN 23.6 H Creatinine 1.1 Est GFR (CKD-EPI)AfAm 63.64 Est GFR (CKD-EPI)NonAf 54.91 Random Glucose 242 H Calcium 8.5 Total Bilirubin 0.2 AST 14 L ALT 22 Alkaline Phosphatase 122 H Creatine Kinase 36 Troponin I < 0.02 Total Protein 5.5 L Albumin 2.8 L Intake & Output 09/11/19 09/12/19 09/13/19 09/14/19 23:59 23:59 23:59 23:59 Intake Total 240 Balance 240 Weight 75.977 kg Current Medications Generic Name Dose Route Start Last Admin Trade Name Freq PRN Reason Stop Dose Admin Amitriptyline HCl 75 mg 09/13/19 22:00 09/13/19 22:14 Elavil - PO 75 mg HS [facility] Administration Apixaban 5 mg 09/13/19 22:00 09/13/19 22:14 Eliquis - PO 5 mg BID [facility] Administration Artificial Tears 1 drop 09/13/19 22:03 Artificial Tears OU BID PRN DRY EYES Atorvastatin Calcium 10 mg 09/13/19 22:00 09/13/19 22:14 Lipitor - PO 10 mg HS [facility] Administration Cholecalciferol 2,000 unit 09/14/19 10:00 Vitamin D3 - PO DAILY [facility] Cyanocobalamin 1,000 mcg 09/14/19 10:00 Vitamin B12 - PO DAILY [facility] Diltiazem HCl 300 mg 09/14/19 10:00 Cardizem Cd - PO DAILY [facility] Gabapentin 300 mg 09/13/19 22:00 09/14/19 05:24 Neurontin - PO 300 mg TID [facility] Administration Guaifenesin 10 ml 09/13/19 23:32 09/14/19 00:15 Robitussin - PO 10 ml Q6H PRN Administration COUGH Hydroxyzine Pamoate 100 mg 09/14/19 10:00 Vistaril - PO BID PRN itching Methylprednisolone Sodium Succinate 40 mg 09/14/19 02:00 09/14/19 01:51 Solu-Medrol - IVPUSH 40 mg Q8H-IV [facility] Administration Non-Formulary Medication 1 drop 09/13/19 20:45 Cyclosporine [Restasis] OU ASDIR [facility] Tiotropium [place] 2 puff 09/14/19 10:00 Spiriva Respimat IH DAILY [facility] Imaging - Results Chest X-ray: Image Reviewed EKG: Image Reviewed Problem List - Problems (1) COPD (chronic obstructive pulmonary disease) Code(s): J44.9 - CHRONIC OBSTRUCTIVE PULMONARY DISEASE, UNSPECIFIED Qualifiers: COPD type: chronic bronchitis Chronic bronchitis type: unspecified Qualified Code(s): J42 - Unspecified chronic bronchitis (2) Diastolic dysfunction with acute on chronic heart failure Code(s): I50.33 - ACUTE ON CHRONIC DIASTOLIC (CONGESTIVE) HEART FAILURE (3) Diabetes mellitus Code(s): E11.9 - TYPE 2 DIABETES MELLITUS WITHOUT COMPLICATIONS (4) Emphysema of lung Code(s): J43.9 - EMPHYSEMA, UNSPECIFIED (5) HLD (hyperlipidemia) Code(s): E78.5 - HYPERLIPIDEMIA, UNSPECIFIED (6) HTN (hypertension) Code(s): I10 - ESSENTIAL (PRIMARY) HYPERTENSION Qualifiers: Hypertension type: essential hypertension Qualified Code(s): I10 - Essential (primary) hypertension (7) Hypercholesterolemia Code(s): E78.00 - PURE HYPERCHOLESTEROLEMIA, UNSPECIFIED (8) Zoster Code(s): B02.9 - ZOSTER WITHOUT COMPLICATIONS Qualifiers: Herpes zoster complications: without complications Qualified Code(s): B02.9 - Zoster without complications Assessment/Plan This is a 59 y/o woman admitted for Acute on Chronic COPD Exacerbation for further evaluation of their emergent condition. Plan: Admit M/S Appreciate Pulm consult Continue Solumederol w/taper Duonebs Peak Flow per and post neb treatments Chest Xray reviewed EKG reviewed O2 Leukocytosis likely due to steroid use, patient is afebrile Continue to monitor CBC, BMP Continue home meds BGMs ISS FEN- PO fluids as tolerated, replete lytes prn, Low Na, Diabetic Diet DVT ppx- OOB, SCDs, continue Eliquis Dispo: Requires Inpatient Care Visit type - Emergency Visit Emergency Visit: Yes ED Registration Date: 09/13/19 Care time: The patient presented to the Emergency Department on the above date and was hospitalized for further evaluation of their emergent condition. - New Patient This patient is new to me today: Yes Date on this admission: 09/13/19 - Critical Care Critical Care patient: No
[2019-09-13] MEDS ORDERED: PATIENT'S OWN MEDICATION (NON-FORMULARY) (Cyclosporine [Restasis] 1 DROP) OU SCH (20:45)
[2019-09-13] MEDS ORDERED: HEPARIN NA (PORCINE) 5,000 UNITS/ML 1ML VIAL SQ SCH (22:00)
[2019-09-13] MEDS ORDERED: ARTIFICIAL TEARS (POLYVINYL ALCOHOL) OPTH DROPS OU PRN (22:03)
[2019-09-13] MEDS ORDERED: APIXABAN 5 MG TABLET ONE (22:09)
[2019-09-13] MEDS ORDERED: AMITRIPTYLINE HCL 25 MG TABLET ONE (22:10)
[2019-09-13] MEDS ORDERED: GABAPENTIN 100 MG CAPSULE ONE (22:10)
[2019-09-13] MEDS ORDERED: ATORVASTATIN CA 10 MG TABLET (FP) ONE (22:10)
[2019-09-13] MEDS: AMITRIPTYLINE HCL 75 MG TABLET PO SCH (22:14)
[2019-09-13] MEDS: GABAPENTIN 300 MG CAPSULE PO SCH (22:14)
[2019-09-13] MEDS: ATORVASTATIN CA 10 MG TABLET (FP) PO SCH (22:14)
[2019-09-13] MEDS: APIXABAN 5 MG TABLET PO SCH (22:14)
[2019-09-14] MEDS: guaiFENesin 200 MG/10 ML 10 ML UNIT-DOSE CUPS PO PRN ×4 (00:15→19:42)
[2019-09-14] MEDS: methylPREDNISolone NA SUCC 40 MG/1 ML VIAL IVPUSH SCH ×3 (01:51→21:14)
[2019-09-14] MEDS: GABAPENTIN 300 MG CAPSULE PO SCH ×3 (05:24→21:15)
[2019-09-14 07:58] LABS: HEMATOCRIT 27.6 % (32.4-45.2); HEMOGLOBIN 8.4 GM/dL (10.7-15.3); MCH 22.8 pg (25.7-33.7); MCHC 30.4 g/dl (32.0-36.0); MEAN CELL VOLUME 74.9 fl (80-96); RBC 3.69 M/mm3 (3.60-5.2); WHITE BLOOD COUNT 11.6 K/mm3 (4.0-10.0)
[2019-09-14 07:59] LABS: BASO % 0.5 % (0-2.0); MEAN PLT VOLUME 7.5 fl (7.5-11.1); MONO % 1.9 % (3.8-10.2); NEUT % 95.6 % (42.8-82.8); PLATELET COUNT 360 K/MM3 (134-434)
[2019-09-14] MEDS ORDERED: PT OWN MED DRAWER 7, Y5N ONE (08:59)
[2019-09-14] MEDS: CHOLECALCIFEROL (VIT D3) 1,000 UNIT (25 MCG) TABLET PO SCH (09:04)
[2019-09-14] MEDS: APIXABAN 5 MG TABLET PO SCH ×2 (09:04→21:15)
[2019-09-14 09:12] LABS: BLOOD UREA NITROGEN 23.7 mg/dL (7-18); CREATININE 0.8 mg/dL (0.55-1.3); POTASSIUM 4.3 mmol/L (3.5-5.1)
[2019-09-14] MEDS: TIOTROPIUM BROMIDE 2.5 MCG (SPIRIVA) RESPIMAT INHALER IH SCH (10:25)
[2019-09-14] MEDS: CYANOCOBALAMIN 1,000 MCG TABLET (FP) PO SCH (10:25)
--- NOTE | 2019-09-14 10:49 | EKG ---
Test Reason : Blood Pressure : / mmHG Vent. Rate : 116 BPM Atrial Rate : 116 BPM P-R Int : 128 ms QRS Dur : 084 ms QT Int : 322 ms P-R-T Axes : 055 013 040 degrees QTc Int : 447 ms SINUS TACHYCARDIA POSSIBLE LEFT ATRIAL ENLARGEMENT LEFT VENTRICULAR HYPERTROPHY ABNORMAL ECG WHEN COMPARED WITH ECG OF 09-SEP-2019 21:34, NO SIGNIFICANT CHANGE WAS FOUND Confirmed by NAVARRO HARPER MD ([id number]) on 09/14/2019 10:49:33 AM Referred By: Confirmed By:NAVARRO HARPER MD
--- NOTE | 2019-09-14 12:02 | PN ---
Progress Note, Physician History of Present Illness: pt seen/ examined. chart is reviewed. Readmitted for copd exac - Current Medication List Current Medications: Active Medications Amitriptyline HCl (Elavil -) 75 mg PO HS [facility] Last Admin: 09/13/19 22:14 Dose: 75 mg Apixaban (Eliquis -) 5 mg PO BID [facility] Last Admin: 09/14/19 09:04 Dose: 5 mg Artificial Tears (Artificial Tears) 1 drop OU BID PRN PRN Reason: DRY EYES Atorvastatin Calcium (Lipitor -) 10 mg PO HS [facility] Last Admin: 09/13/19 22:14 Dose: 10 mg Budesonide/Formoterol Fumarate (Symbicort 160/4.5mcg -) 2 puff IH BID [facility] Cholecalciferol (Vitamin D3 -) 2,000 unit PO DAILY [facility] Last Admin: 09/14/19 09:04 Dose: 2,000 unit Cyanocobalamin (Vitamin B12 -) 1,000 mcg PO DAILY [facility] Last Admin: 09/14/19 10:25 Dose: 1,000 mcg Diltiazem HCl (Cardizem Cd -) 300 mg PO DAILY [facility] Last Admin: 09/14/19 10:25 Dose: 300 mg Famotidine (Pepcid -) 20 mg PO DAILY [facility] Gabapentin (Neurontin -) 300 mg PO TID [facility] Last Admin: 09/14/19 05:24 Dose: 300 mg Glipizide (Glucotrol -) 2.5 mg PO DAILY@0700 [facility] Guaifenesin (Robitussin -) 10 ml PO Q6H PRN PRN Reason: COUGH Last Admin: 09/14/19 06:12 Dose: 10 ml Hydroxyzine Pamoate (Vistaril -) 100 mg PO BID PRN PRN Reason: itching Insulin Detemir (Levemir Vial) 5 units SQ HS [facility] Levalbuterol HCl (Xopenex) 0.63 mg IH Q8H PRN PRN Reason: ASTHMA Methylprednisolone Sodium Succinate (Solu-Medrol -) 40 mg IVPUSH Q8H-IV [facility] Last Admin: 09/14/19 09:04 Dose: 40 mg Non-Formulary Medication (Cyclosporine [Restasis]) 1 drop OU ASDIR [facility] Roflumilast (Daliresp) 500 mcg PO DAILY [facility] Tiotropium [place] (Spiriva Respimat) 2 puff IH DAILY [facility] Last Admin: 09/14/19 10:25 Dose: 2 puff - Objective Vital Signs: Vital Signs Temperature 97.8 F 09/14/19 09:54 Pulse Rate 100 H 09/14/19 09:54 Respiratory Rate 20 09/14/19 09:54 Blood Pressure 145/73 09/14/19 09:54 O2 Sat by Pulse Oximetry (%) 98 09/14/19 09:00 Constitutional: Yes: No Distress, Calm Eyes: Yes: Conjunctiva Clear Neck: Yes: Supple Respiratory: Yes: Wheezes. No: Stridor Gastrointestinal: Yes: Soft Edema: No Neurological: Yes: Alert Psychiatric: Yes: Alert Labs: CBC, BMP 09/14/19 06:40 09/14/19 06:40 INR, PTT INR 1.09 (0.83-1.09) 09/13/19 18:35 Problem List - Problems (1) Acute exacerbation of chronic obstructive pulmonary disease (COPD) Code(s): J44.1 - CHRONIC OBSTRUCTIVE PULMONARY DISEASE W (ACUTE) EXACERBATION (2) Anxiety Code(s): F41.9 - ANXIETY DISORDER, UNSPECIFIED (3) Diabetes Code(s): E11.9 - TYPE 2 DIABETES MELLITUS WITHOUT COMPLICATIONS (4) HTN (hypertension) Code(s): I10 - ESSENTIAL (PRIMARY) HYPERTENSION Qualifiers: Hypertension type: essential hypertension Qualified Code(s): I10 - Essential (primary) hypertension Assessment/Plan Discussed with pt/ RN Meds Updated Continue present care add basal insulin Monitor bgm/BP Pt wants regular diet only will follow
[2019-09-14] MEDS: FAMOTIDINE 20 MG TABLET PO SCH (12:21)
[2019-09-14] MEDS: ROFLUMILAST 500 MCG TABLET PO SCH (12:42)
[2019-09-14] MEDS: hydrOXYzine PAMOATE 50 MG CAPSULE (FP) PO PRN (12:42)
[2019-09-14] MEDS: BUDESONIDE/FORMETEROL FUMARATE 160/4.5 mcg INHALER IH SCH ×2 (12:42→21:15)
[2019-09-14] MEDS: LEVALBUTEROL HCL 0.63 MG/3 ML VIAL.NEB. IH PRN ×2 (14:03→22:18)
[2019-09-14] MEDS ORDERED: guaiFENesin 200 MG/10 ML 10 ML UNIT-DOSE CUPS PO PRN (15:00)
--- NOTE | 2019-09-14 16:54 | PN ---
Progress Note (short form) - Note Progress Note: PULMONARY PATIENT SEEN AND EXAMINED FULL CONSULT TO FOLLOW Ubaldo MALONEY MD
[2019-09-14] MEDS: NYSTATIN 500,000 UNITS/5 ML SUSPENSION PO SCH (18:06)
[2019-09-14] MEDS ORDERED: INSULIN (NOVOLOG) ASPART 100 UNITS/ML 10ML VIAL ONE (20:56)
[2019-09-14] MEDS: INSULIN (LEVEMIR) 100 UNITS/ML UNITS SQ SCH (21:14)
[2019-09-14] MEDS: AMITRIPTYLINE HCL 75 MG TABLET PO SCH (21:15)
[2019-09-14] MEDS: ATORVASTATIN CA 10 MG TABLET (FP) PO SCH (21:15)
[2019-09-15] MEDS: NYSTATIN 500,000 UNITS/5 ML SUSPENSION PO SCH ×4 (00:10→17:28)
[2019-09-15] MEDS: guaiFENesin 200 MG/10 ML 10 ML UNIT-DOSE CUPS PO PRN ×3 (00:11→18:17)
[2019-09-15] MEDS: hydrOXYzine PAMOATE 50 MG CAPSULE (FP) PO PRN ×2 (00:34→06:26)
[2019-09-15] MEDS: methylPREDNISolone NA SUCC 40 MG/1 ML VIAL IVPUSH SCH ×4 (02:34→21:33)
[2019-09-15] MEDS: GABAPENTIN 300 MG CAPSULE PO SCH ×3 (05:30→21:33)
[2019-09-15] MEDS: glipiZIDE 5 MG TABLET (FP) PO SCH (06:24)
[2019-09-15 07:23] LABS: BASO % 0.3 % (0-2.0); HEMATOCRIT 29.1 % (32.4-45.2); HEMOGLOBIN 8.8 GM/dL (10.7-15.3); LYMPH % 1.5 % (8-40); MCH 22.5 pg (25.7-33.7); MCHC 30.1 g/dl (32.0-36.0); MEAN CELL VOLUME 74.5 fl (80-96); MEAN PLT VOLUME 7.3 fl (7.5-11.1); MONO % 2.9 % (3.8-10.2); NEUT % 95.3 % (42.8-82.8); PLATELET COUNT 381 K/MM3 (134-434); RBC 3.91 M/mm3 (3.60-5.2); RDW 18.9 % (11.6-15.6); WHITE BLOOD COUNT 14.4 K/mm3 (4.0-10.0)
[2019-09-15 07:53] LABS: BLOOD UREA NITROGEN 19.3 mg/dL (7-18); CREATININE 0.7 mg/dL (0.55-1.3)
[2019-09-15 07:54] LABS: ALBUMIN 2.6 g/dl (3.4-5.0); BILIRUBIN,TOTAL 0.6 mg/dL (0.2-1); CALCIUM 8.6 mg/dL (8.5-10.1); POTASSIUM 4.3 mmol/L (3.5-5.1); TOT PROT 5.4 g/dl (6.4-8.2)
[2019-09-15] MEDS ORDERED: PT OWN MED DRAWER 7, Y5N ONE (09:03)
[2019-09-15] MEDS: FAMOTIDINE 20 MG TABLET PO SCH (09:05)
[2019-09-15] MEDS: CHOLECALCIFEROL (VIT D3) 1,000 UNIT (25 MCG) TABLET PO SCH (09:05)
[2019-09-15] MEDS: ROFLUMILAST 500 MCG TABLET PO SCH (09:05)
[2019-09-15] MEDS: CYANOCOBALAMIN 1,000 MCG TABLET (FP) PO SCH (09:05)
[2019-09-15] MEDS: APIXABAN 5 MG TABLET PO SCH ×2 (09:05→21:33)
[2019-09-15] MEDS: BUDESONIDE/FORMETEROL FUMARATE 160/4.5 mcg INHALER IH SCH ×2 (09:06→21:32)
[2019-09-15] MEDS: TIOTROPIUM BROMIDE 2.5 MCG (SPIRIVA) RESPIMAT INHALER IH SCH (09:06)
[2019-09-15 09:58] LABS: ANISOCYTOSIS 1+; MACROCYTOSIS 0; OVALOCYTE 1+; PLATELET ESTIMATE NORMAL; TEAR DROP CELLS 1+
[2019-09-15 12:15] VITALS: BMI 29.5
--- NOTE | 2019-09-15 12:15 | CON.PULM ---
Consult Consult Specialty:: PULMONARY Referred by:: ZENA Reason for Consultation:: COPD - History of Present Illness Chief Complaint: COUGH/WHEEZE/SOB History of Present Illness: RE-ADMITTED AFTER 24 HOURS POST DISCHARGE DUE TO INCREASED SOB/COUGH AND WHEEZE. 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 Cardio/Vascular: Yes: AFIB, CAD, CHF, Deep Vein Thrombosis, HTN, Hyperlipdemia Pulmonary: Yes: Bronchitis, COPD, Pneumonia, Pulmonary Embolus (on Eliquis) Gastrointestinal: Yes: GERD, Other (HERNIA REPAIR WITH COMPLICATIONS AND POST OP SBO) ...LMP: 06/30/13 Infectious Disease: Yes: MRSA Psych: Yes: Anxiety Musculoskeletal: Yes: Osteoarthritis Rheumatology: Yes: Other (OSTEOARTHRITIS) Endocrine: Yes: Diabetes Mellitus - Past Surgical History Past Surgical History: Yes: Hernia Repair - Alcohol/Substance Use Hx Alcohol Use: No History of Substance Use: reports: None - Smoking History Smoking history: Never smoked Have you smoked in the past 12 months: No Aproximately how many cigarettes per day: 0 If you are a former smoker, when did you quit?: 2013 - Social History Usual Living Arrangement: Alone ADL: Independent History of Recent Travel: No Home Medications - Allergies Allergies/Adverse Reactions: Allergies Allergy/AdvReac Type Severity Reaction Status Date / Time Penicillins Allergy Hives Verified 09/13/19 17:04 Sulfa (Sulfonamide Allergy Hives Verified 09/13/19 17:04 Antibiotics) [Sulfa(Sulfonamide Antibiotics)] - Home Medications Home Medications: Ambulatory Orders Amitriptyline HCl [Elavil -] 75 mg PO HS 09/13/19 Apixaban [Eliquis] 5 mg PO BID 09/13/19 Atorvastatin Calcium [Lipitor] 10 mg PO HS 09/13/19 Cholecalciferol (Vitamin D3) [Vitamin D3 -] 2,000 unit PO DAILY 09/13/19 Clobetasol/Skin Cleanser No.28 [[place] 0.05% Kit] 1 each TP BID 09/13/19 Cyanocobalamin [Vitamin B12 -] 1,000 mcg PO DAILY 09/13/19 Cyclosporine [Restasis] 1 drop OU ASDIR 09/13/19 Diltiazem Cd [Cardizem Cd -] 300 mg PO DAILY 09/13/19 Gabapentin 300 mg PO ASDIR 09/13/19 Hydroxyzine HCl 2 tab PO BID PRN 09/13/19 Prednisolone 1% Ophthalmic [Pred Forte 1% -] 1 drop OU ASDIR 09/13/19 Prednisone 50 mg PO ASDIR 09/13/19 Tiotropium [place] [Spiriva] 1 inh IN DAILY 09/13/19 Family Medical History Family History: Unremarkable Review of Systems - Review of Systems Cardiovascular: denies: Chest Pain Respiratory: reports: Cough, Exercise Intolerance, Orthopnea, SOB, SOB on Exertion, Wheezing. denies: Hemoptysis Gastrointestinal: denies: Abdominal Pain Genitourinary: denies: Burning Physical Exam Vital Sings: Vital Signs Temperature 98.3 F 09/15/19 10:00 Pulse Rate 96 H 09/15/19 10:00 Respiratory Rate 09/15/19 10:00 Blood Pressure 145/85 09/15/19 10:00 O2 Sat by Pulse Oximetry (%) 96 09/15/19 09:00 Constitutional: Yes: Calm Eyes: Yes: EOM Intact HENT: Yes: Normocephalic Neck: Yes: Trachea Midline Cardiovascular: Yes: Regular Rate and Rhythm Respiratory: Yes: Rhonchi, Wheezes Gastrointestinal: Yes: Abdomen, Obese Edema: No Labs: CBC, BMP 09/15/19 06:35 09/15/19 06:35 Imaging - Results Chest X-ray: Report Reviewed, Image Reviewed Problem List - Problems (1) Shortness of breath Code(s): R06.02 - SHORTNESS OF BREATH (2) Acute exacerbation of chronic obstructive pulmonary disease (COPD) Code(s): J44.1 - CHRONIC OBSTRUCTIVE PULMONARY DISEASE W (ACUTE) EXACERBATION (3) Asthma with COPD Code(s): J44.9 - CHRONIC OBSTRUCTIVE PULMONARY DISEASE, UNSPECIFIED; J45.909 - UNSPECIFIED ASTHMA, UNCOMPLICATED Assessment/Plan O2/BRONCHODILATORS/STEROIDS/DALIRESP/CHEST PT/DAILY PEAK FLOW OOB TO CHAIR/ANTICOAGULATION WILL FOLLOW Ubaldo HAMMONDS MD
--- NOTE | 2019-09-15 12:35 | PN ---
Progress Note (short form) - Note Progress Note: anxious c/c- itching -- right side of face no distress still wheezing Pulmonary consult noted/ appreciated Vital Signs Temp 98.3 F 09/15/19 10:00 Pulse 96 H 09/15/19 10:00 Resp 20 09/15/19 10:00 BP 145/85 09/15/19 10:00 Pulse Ox 96 09/15/19 09:00 Intake & Output 09/14/19 09/15/19 09/15/19 23:59 11:59 23:59 Intake Total 600 Balance 600 Weight 167 lb Intake: Oral 600 Other: Voiding Method Toilet Toilet # Unmeasured Voids Void 2 2 Bowel Movement No No Height 5 ft 3 in Body Mass Index (BMI) 29.5 Active Medications Amitriptyline HCl (Elavil -) 75 mg PO [facility] Last Admin: 09/14/19 21:15 Dose: 75 mg Apixaban (Eliquis -) 5 mg PO BID [facility] Last Admin: 09/15/19 09:05 Dose: 5 mg Artificial Tears (Artificial Tears) 1 drop OU BID PRN PRN Reason: DRY EYES Atorvastatin Calcium (Lipitor -) 10 mg PO [facility] Last Admin: 09/14/19 21:15 Dose: 10 mg Budesonide/Formoterol Fumarate (Symbicort 160/4.5mcg -) 2 puff IH BID [facility] Last Admin: 09/15/19 09:06 Dose: 2 puff Cholecalciferol (Vitamin D3 -) 2,000 unit PO DAILY [facility] Last Admin: 09/15/19 09:05 Dose: 2,000 unit Cyanocobalamin (Vitamin B12 -) 1,000 mcg PO DAILY [facility] Last Admin: 09/15/19 09:05 Dose: 1,000 mcg Diltiazem HCl (Cardizem Cd -) 300 mg PO DAILY [facility] Last Admin: 09/15/19 09:05 Dose: 300 mg Diphenhydramine HCl (Benadryl -) 25 mg PO BID [facility] Famotidine (Pepcid -) 20 mg PO DAILY [facility] Last Admin: 09/15/19 09:05 Dose: 20 mg Gabapentin (Neurontin -) 300 mg PO TID [facility] Last Admin: 09/15/19 05:30 Dose: 300 mg Glipizide (Glucotrol -) 2.5 mg PO DAILY@0700 [facility] Last Admin: 09/15/19 06:24 Dose: 2.5 mg Guaifenesin (Robitussin -) 10 ml PO Q4H PRN PRN Reason: COUGH Last Admin: 09/15/19 06:30 Dose: 10 ml Hydroxyzine Pamoate (Vistaril -) 100 mg PO BID PRN PRN Reason: itching Last Admin: 09/15/19 06:26 Dose: 100 mg Insulin Detemir (Levemir Vial) 5 units SQ HS [facility] Last Admin: 09/14/19 21:14 Dose: 5 units Levalbuterol HCl (Xopenex) 0.63 mg IH Q8H PRN PRN Reason: ASTHMA Levalbuterol HCl (Xopenex) 0.63 mg IH Q8H PRN PRN Reason: ASTHMA Last Admin: 09/14/19 22:18 Dose: 0.63 mg Methylprednisolone Sodium Succinate (Solu-Medrol -) 40 mg IVPUSH Q6H-IV [facility] Last Admin: 09/15/19 09:04 Dose: 40 mg Non-Formulary Medication (Cyclosporine [Restasis]) 1 drop OU ASDIR [facility] Nystatin (Nystatin Oral Suspension -) 500,000 units PO Q6HPO [facility] Last Admin: 09/15/19 11:56 Dose: 500,000 units Roflumilast (Daliresp) 500 mcg PO DAILY [facility] Last Admin: 09/15/19 09:05 Dose: 500 mcg Tiotropium [place] (Spiriva Respimat) 2 puff IH DAILY [facility] Last Admin: 09/15/19 09:06 Dose: 2 puff CBC, BMP 09/15/19 06:35 09/15/19 06:35 Physical Exam Constitutional: Yes: No Distress, anxious Eyes: Yes: Conjunctiva Clear Neck: Yes: Supple Respiratory: Yes: Wheezes. Gastrointestinal: Yes: Soft Edema: No Neurological: Yes: Alert Psychiatric: Yes: Alert Problem List - Problems (1) Acute exacerbation of chronic obstructive pulmonary disease (COPD) Code(s): J44.1 - CHRONIC OBSTRUCTIVE PULMONARY DISEASE W (ACUTE) EXACERBATION (2) Anxiety Code(s): F41.9 - ANXIETY DISORDER, UNSPECIFIED (3) Diabetes Code(s): E11.9 - TYPE 2 DIABETES MELLITUS WITHOUT COMPLICATIONS (4) HTN (hypertension) Code(s): I10 - ESSENTIAL (PRIMARY) HYPERTENSION Qualifiers: Hypertension type: essential hypertension Qualified Code(s): I10 - Essential (primary) hypertension Assessment/Plan Discussed with pt/ RN Continue present care Monitor bgm/BP benadryl prn for itching daily peak flow will follow Problem List - Problems (1) Acute exacerbation of chronic obstructive pulmonary disease (COPD) Code(s): J44.1 - CHRONIC OBSTRUCTIVE PULMONARY DISEASE W (ACUTE) EXACERBATION (2) Anxiety Code(s): F41.9 - ANXIETY DISORDER, UNSPECIFIED (3) Diabetes Code(s): E11.9 - TYPE 2 DIABETES MELLITUS WITHOUT COMPLICATIONS (4) HTN (hypertension) Code(s): I10 - ESSENTIAL (PRIMARY) HYPERTENSION Qualifiers: Hypertension type: essential hypertension Qualified Code(s): I10 - Essential (primary) hypertension
[2019-09-15] MEDS ORDERED: diphenhydrAMINE HCL 25 MG CAPSULE (FP) PO ONE (14:00)
[2019-09-15] MEDS: diphenhydrAMINE HCL 25 MG CAPSULE (FP) PO SCH ×2 (14:05→21:33)
[2019-09-15] MEDS: LEVALBUTEROL HCL 0.63 MG/3 ML VIAL.NEB. IH PRN (20:27)
[2019-09-15] MEDS: ATORVASTATIN CA 10 MG TABLET (FP) PO SCH (21:33)
[2019-09-15] MEDS: AMITRIPTYLINE HCL 75 MG TABLET PO SCH (21:33)
[2019-09-15] MEDS: INSULIN (LEVEMIR) 100 UNITS/ML UNITS SQ SCH (21:34)
[2019-09-16] MEDS: NYSTATIN 500,000 UNITS/5 ML SUSPENSION PO SCH ×4 (00:01→17:09)
[2019-09-16] MEDS: methylPREDNISolone NA SUCC 40 MG/1 ML VIAL IVPUSH SCH ×4 (02:42→21:42)
[2019-09-16] MEDS: guaiFENesin 200 MG/10 ML 10 ML UNIT-DOSE CUPS PO PRN ×4 (02:42→21:58)
[2019-09-16] MEDS ORDERED: ZOLPIDEM TARTRATE 5 MG TABLET PO ONE (03:06)
[2019-09-16] MEDS: GABAPENTIN 300 MG CAPSULE PO SCH (06:06)
[2019-09-16] MEDS: glipiZIDE 5 MG TABLET (FP) PO SCH (06:06)
[2019-09-16] MEDS ORDERED: PT OWN MED DRAWER 7, Y5N ONE ×2 (09:10→09:22)
[2019-09-16] MEDS: APIXABAN 5 MG TABLET PO SCH ×2 (09:14→21:43)
[2019-09-16] MEDS: FAMOTIDINE 20 MG TABLET PO SCH (09:14)
[2019-09-16] MEDS: CHOLECALCIFEROL (VIT D3) 1,000 UNIT (25 MCG) TABLET PO SCH (09:14)
[2019-09-16] MEDS: diphenhydrAMINE HCL 25 MG CAPSULE (FP) PO SCH (09:15)
[2019-09-16] MEDS: TIOTROPIUM BROMIDE 2.5 MCG (SPIRIVA) RESPIMAT INHALER IH SCH (09:15)
[2019-09-16] MEDS: BUDESONIDE/FORMETEROL FUMARATE 160/4.5 mcg INHALER IH SCH ×2 (09:15→21:54)
[2019-09-16] MEDS: CYANOCOBALAMIN 1,000 MCG TABLET (FP) PO SCH (09:23)
[2019-09-16] MEDS: ROFLUMILAST 500 MCG TABLET PO SCH (09:24)
--- NOTE | 2019-09-16 12:20 | PN ---
Progress Note (short form) - Note Progress Note: PULMONARY Still with shortness of breath, cough, chest tightness. Cough productive of thick yellow/green sputum. No fevers. Vital Signs Period Temp Pulse Resp BP Sys/Jordan Pulse Ox Last 24 Hr 97.3 F-98.8 F 94-113 18-21 144-156/75-84 96 Gen: tachypneic with speaking Heart: RRR Lung: bilateral rhonchi, wheezes Abd: soft, nontender Ext: no edema CBC, BMP 09/15/19 06:35 09/15/19 06:35 Active Medications Amitriptyline HCl (Elavil -) 75 mg PO HS [facility] Last Admin: 09/15/19 21:33 Dose: 75 mg Apixaban (Eliquis -) 5 mg PO BID [facility] Last Admin: 09/16/19 09:14 Dose: 5 mg Artificial Tears (Artificial Tears) 1 drop OU BID PRN PRN Reason: DRY EYES Atorvastatin Calcium (Lipitor -) 10 mg PO [facility] Last Admin: 09/15/19 21:33 Dose: 10 mg Budesonide/Formoterol Fumarate (Symbicort 160/4.5mcg -) 2 puff IH BID [facility] Last Admin: 09/16/19 09:15 Dose: 2 puff Cholecalciferol (Vitamin D3 -) 2,000 unit PO DAILY [facility] Last Admin: 09/16/19 09:14 Dose: 2,000 unit Cyanocobalamin (Vitamin B12 -) 1,000 mcg PO DAILY [facility] Last Admin: 09/16/19 09:23 Dose: 1,000 mcg Diltiazem HCl (Cardizem Cd -) 300 mg PO DAILY [facility] Last Admin: 09/16/19 09:23 Dose: 300 mg Diphenhydramine HCl (Benadryl -) 25 mg PO BID [facility] Last Admin: 09/16/19 09:15 Dose: 25 mg Famotidine (Pepcid -) 20 mg PO DAILY [facility] Last Admin: 09/16/19 09:14 Dose: 20 mg Gabapentin (Neurontin -) 300 mg PO TID [facility] Last Admin: 09/16/19 06:06 Dose: 300 mg Glipizide (Glucotrol -) 2.5 mg PO DAILY@0700 [facility] Last Admin: 09/16/19 06:06 Dose: 2.5 mg Guaifenesin (Robitussin -) 10 ml PO Q4H PRN PRN Reason: COUGH Last Admin: 09/16/19 09:14 Dose: 10 ml Hydroxyzine Pamoate (Vistaril -) 100 mg PO BID PRN PRN Reason: itching Last Admin: 09/15/19 06:26 Dose: 100 mg Insulin Detemir (Levemir Vial) 5 units SQ HS [facility] Last Admin: 09/15/19 21:34 Dose: 5 units Levalbuterol HCl (Xopenex) 0.63 mg IH Q8H PRN PRN Reason: ASTHMA Methylprednisolone Sodium Succinate (Solu-Medrol -) 40 mg IVPUSH Q6H-IV [facility] Last Admin: 09/16/19 09:14 Dose: 40 mg Non-Formulary Medication (Cyclosporine [Restasis]) 1 drop OU ASDIR [facility] Nystatin (Nystatin Oral Suspension -) 500,000 units PO Q6HPO [facility] Last Admin: 09/16/19 11:59 Dose: 500,000 units Roflumilast (Daliresp) 500 mcg PO DAILY [facility] Last Admin: 09/16/19 09:24 Dose: 500 mcg Tiotropium [place] (Spiriva Respimat) 2 puff IH DAILY [facility] Last Admin: 09/16/19 09:15 Dose: 2 puff A/P Acute COPD Exacerbation Acute Bronchitis Atrial Fibrillation h/o CVA HTN DM Hyperlipidemia - continue medrol at current dose - inhaled bronchodilators standing and PRN - will add azithromycin - O2 to keep SpO2 >90% - rate control - continue anticoagulation - glucose control while on systemic steroids
--- NOTE | 2019-09-16 12:22 | PN ---
Progress Note (short form) - Note Progress Note: pt seen / examined anxious itching + Insists to see Dermatology Also wants to increase Gabapentin . Vital Signs Temp 98.2 F 09/16/19 08:08 Pulse 104 H 09/16/19 08:08 Resp 18 09/16/19 08:08 BP 149/84 09/16/19 08:08 Pulse Ox 96 09/15/19 21:00 Intake & Output 09/15/19 09/16/19 09/16/19 23:59 11:59 23:59 Intake Total 300 Balance 300 Intake: Oral 300 Other: Voiding Method Toilet # Unmeasured Voids Void 1 1 Bowel Movement No No Active Medications Amitriptyline HCl (Elavil -) 75 mg PO HS [facility] Last Admin: 09/15/19 21:33 Dose: 75 mg Apixaban (Eliquis -) 5 mg PO BID [facility] Last Admin: 09/16/19 09:14 Dose: 5 mg Artificial Tears (Artificial Tears) 1 drop OU BID PRN PRN Reason: DRY EYES Atorvastatin Calcium (Lipitor -) 10 mg PO [facility] Last Admin: 09/15/19 21:33 Dose: 10 mg Budesonide/Formoterol Fumarate (Symbicort 160/4.5mcg -) 2 puff IH BID [facility] Last Admin: 09/16/19 09:15 Dose: 2 puff Cholecalciferol (Vitamin D3 -) 2,000 unit PO DAILY [facility] Last Admin: 09/16/19 09:14 Dose: 2,000 unit Cyanocobalamin (Vitamin B12 -) 1,000 mcg PO DAILY [facility] Last Admin: 09/16/19 09:23 Dose: 1,000 mcg Diltiazem HCl (Cardizem Cd -) 300 mg PO DAILY [facility] Last Admin: 09/16/19 09:23 Dose: 300 mg Diphenhydramine HCl (Benadryl -) 25 mg PO TID PRN PRN Reason: ALLERGIES Famotidine (Pepcid -) 20 mg PO DAILY [facility] Last Admin: 09/16/19 09:14 Dose: 20 mg Gabapentin (Neurontin -) 400 mg PO TID [facility] Glipizide (Glucotrol -) 2.5 mg PO DAILY@0700 [facility] Last Admin: 09/16/19 06:06 Dose: 2.5 mg Guaifenesin (Robitussin -) 10 ml PO Q4H PRN PRN Reason: COUGH Last Admin: 09/16/19 09:14 Dose: 10 ml Hydroxyzine Pamoate (Vistaril -) 100 mg PO BID PRN PRN Reason: itching Last Admin: 09/15/19 06:26 Dose: 100 mg Insulin Detemir (Levemir Vial) 5 units SQ HS [facility] Last Admin: 09/15/19 21:34 Dose: 5 units Levalbuterol HCl (Xopenex) 0.63 mg IH Q8H PRN PRN Reason: ASTHMA Methylprednisolone Sodium Succinate (Solu-Medrol -) 40 mg IVPUSH Q6H-IV [facility] Last Admin: 09/16/19 09:14 Dose: 40 mg Non-Formulary Medication (Cyclosporine [Restasis]) 1 drop OU ASDIR [facility] Nystatin (Nystatin Oral Suspension -) 500,000 units PO Q6HPO [facility] Last Admin: 09/16/19 11:59 Dose: 500,000 units Roflumilast (Daliresp) 500 mcg PO DAILY [facility] Last Admin: 09/16/19 09:24 Dose: 500 mcg Tiotropium [place] (Spiriva Respimat) 2 puff IH DAILY [facility] Last Admin: 09/16/19 09:15 Dose: 2 puff CBC, BMP 09/15/19 06:35 09/15/19 06:35 Physical Exam Constitutional: Yes: No Distress, anxious Eyes: Yes: Conjunctiva Clear Neck: Yes: Supple Respiratory: Yes: Wheezes. Gastrointestinal: Yes: Soft Edema: No Neurological: Yes: Alert Psychiatric: Yes: Alert Assessment/Plan Discussed with pt/ RN Continue present care Monitor bgm/BP benadryl prn for itching .-- Increase to tid prn Increase Neurontin Dermatology consult daily peak flow will follow. Problem List - Problems (1) Acute exacerbation of chronic obstructive pulmonary disease (COPD) Code(s): J44.1 - CHRONIC OBSTRUCTIVE PULMONARY DISEASE W (ACUTE) EXACERBATION (2) Anxiety Code(s): F41.9 - ANXIETY DISORDER, UNSPECIFIED (3) Diabetes Code(s): E11.9 - TYPE 2 DIABETES MELLITUS WITHOUT COMPLICATIONS (4) HTN (hypertension) Code(s): I10 - ESSENTIAL (PRIMARY) HYPERTENSION Qualifiers: Hypertension type: essential hypertension Qualified Code(s): I10 - Essential (primary) hypertension
[2019-09-16] MEDS: LEVALBUTEROL HCL 0.63 MG/3 ML VIAL.NEB. IH PRN ×2 (12:30→16:53)
[2019-09-16] MEDS ORDERED: LEVALBUTEROL HCL 0.63 MG/3 ML VIAL.NEB. IH ONE (12:32)
[2019-09-16] MEDS: AZITHROMYCIN 250 MG TABLET PO SCH (13:18)
[2019-09-16] MEDS: GABAPENTIN 400 MG CAPSULE PO SCH ×2 (13:18→21:43)
[2019-09-16] MEDS: diphenhydrAMINE HCL 25 MG CAPSULE (FP) PO PRN ×2 (14:24→21:57)
[2019-09-16] MEDS ORDERED: LEVALBUTEROL HCL 0.31 MG/3 ML VIAL.NEB IH PRN (15:08)
--- NOTE | 2019-09-16 18:02 | CONSULT ---
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 Cardio/Vascular: Yes: AFIB, CAD, CHF, Deep Vein Thrombosis, HTN, Hyperlipdemia Pulmonary: Yes: Bronchitis, COPD, Pneumonia, Pulmonary Embolus (on Eliquis) Gastrointestinal: Yes: GERD, Other (HERNIA REPAIR WITH COMPLICATIONS AND POST OP SBO) ...LMP: 06/30/13 Infectious Disease: Yes: MRSA Psych: Yes: Anxiety Musculoskeletal: Yes: Osteoarthritis Rheumatology: Yes: Other (OSTEOARTHRITIS) Endocrine: Yes: Diabetes Mellitus - Past Surgical History Past Surgical History: Yes: Hernia Repair - Alcohol/Substance Use Hx Alcohol Use: No History of Substance Use: reports: None - Smoking History Smoking history: Never smoked Have you smoked in the past 12 months: No Aproximately how many cigarettes per day: 0 If you are a former smoker, when did you quit?: 2012 - Social History Usual Living Arrangement: Alone ADL: Independent History of Recent Travel: No Home Medications - Allergies Allergies/Adverse Reactions: Allergies Allergy/AdvReac Type Severity Reaction Status Date / Time Penicillins Allergy Hives Verified 09/13/19 17:04 Sulfa (Sulfonamide Allergy Hives Verified 09/13/19 17:04 Antibiotics) [Sulfa(Sulfonamide Antibiotics)] - Home Medications Home Medications: Ambulatory Orders Amitriptyline HCl [Elavil -] 75 mg PO HS 09/13/19 Apixaban [Eliquis] 5 mg PO BID 09/13/19 Atorvastatin Calcium [Lipitor] 10 mg PO HS 09/13/19 Cholecalciferol (Vitamin D3) [Vitamin D3 -] 2,000 unit PO DAILY 09/13/19 Clobetasol/Skin Cleanser No.28 [[place] 0.05% Kit] 1 each TP BID 09/13/19 Cyanocobalamin [Vitamin B12 -] 1,000 mcg PO DAILY 09/13/19 Cyclosporine [Restasis] 1 drop OU [facility]IR 09/13/19 Diltiazem Cd [Cardizem Cd -] 300 mg PO DAILY 09/13/19 Gabapentin 300 mg PO [facility] 09/13/19 Hydroxyzine HCl 2 tab PO BID PRN 09/13/19 Prednisolone 1% Ophthalmic [Pred Forte 1% -] 1 drop OU [facility] 09/13/19 Prednisone 50 mg PO [facility] 09/13/19 Tiotropium [place] [Spiriva] 1 inh IN DAILY 09/13/19 Physical Exam Vital Signs: Vital Signs Temperature 98.9 F 09/16/19 14:53 Pulse Rate 115 H 09/16/19 14:53 Respiratory Rate 09/16/19 14:53 Blood Pressure 131/63 09/16/19 14:53 O2 Sat by Pulse Oximetry (%) 96 09/16/19 09:00 Labs: CBC, BMP 09/15/19 06:35 09/15/19 06:35 Assessment/Plan Patient complain of itch on scalp after having shingles in july.On exam she has postinflammatory hyperpigmentation on right side of forehead. On the right side of scalp she has areas of alopecia from scratching the area. Patient will follow up with Neurologist to manage the post herpetic neuralgia. She is currently on neurontin which has been just been increased. She will continue to apply clobetasol solution to scalp and discontinue steroid medicine to eyelids. 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 Patient will take antihistamines prn pruritis. Will follow.
[2019-09-16] MEDS: AMITRIPTYLINE HCL 75 MG TABLET PO SCH (21:42)
[2019-09-16] MEDS: ATORVASTATIN CA 10 MG TABLET (FP) PO SCH (21:43)
[2019-09-16] MEDS: INSULIN (LEVEMIR) 100 UNITS/ML UNITS SQ SCH (21:43)
[2019-09-16] MEDS: LEVALBUTEROL HCL 0.63 MG/3 ML VIAL.NEB. IH SCH (22:42)
[2019-09-17] MEDS: NYSTATIN 500,000 UNITS/5 ML SUSPENSION PO SCH ×4 (01:23→17:58)
[2019-09-17] MEDS: methylPREDNISolone NA SUCC 40 MG/1 ML VIAL IVPUSH SCH ×4 (03:08→22:04)
[2019-09-17] MEDS: GABAPENTIN 400 MG CAPSULE PO SCH ×3 (06:13→22:59)
[2019-09-17] MEDS: glipiZIDE 5 MG TABLET (FP) PO SCH (06:13)
[2019-09-17] MEDS: LEVALBUTEROL HCL 0.63 MG/3 ML VIAL.NEB. IH SCH ×3 (07:25→20:00)
[2019-09-17] MEDS: CHOLECALCIFEROL (VIT D3) 1,000 UNIT (25 MCG) TABLET PO SCH (09:40)
[2019-09-17] MEDS: AZITHROMYCIN 250 MG TABLET PO SCH (09:40)
[2019-09-17] MEDS: BUDESONIDE/FORMETEROL FUMARATE 160/4.5 mcg INHALER IH SCH ×2 (09:41→23:04)
[2019-09-17] MEDS: FAMOTIDINE 20 MG TABLET PO SCH (09:41)
[2019-09-17] MEDS: APIXABAN 5 MG TABLET PO SCH ×2 (09:41→22:59)
[2019-09-17] MEDS: TIOTROPIUM BROMIDE 2.5 MCG (SPIRIVA) RESPIMAT INHALER IH SCH (09:41)
[2019-09-17] MEDS: ROFLUMILAST 500 MCG TABLET PO SCH (11:05)
[2019-09-17] MEDS: CYANOCOBALAMIN 1,000 MCG TABLET (FP) PO SCH (11:05)
--- NOTE | 2019-09-17 11:43 | PN ---
Progress Note (short form) - Note Progress Note: SOB on ventimask coughing+ Vital Signs - 24 hr 09/16/19 09/16/19 09/16/19 14:53 18:17 21:00 Temperature 98.9 F Pulse Rate 115 H Respiratory 20 24 H Rate Blood Pressure 131/63 O2 Sat by Pulse 96 96 Oximetry (%) 09/16/19 09/17/19 09/17/19 22:28 04:44 08:20 Temperature 98.1 F 98.1 F 98 F Pulse Rate 100 H 102 H 111 H Respiratory 24 H 20 20 Rate Blood Pressure 155/96 157/85 161/83 O2 Sat by Pulse Oximetry (%) 09/17/19 08:22 Temperature Pulse Rate Respiratory 20 Rate Blood Pressure O2 Sat by Pulse 91 L Oximetry (%) Current Medications Generic Name Dose Route Start Last Admin Trade Name Freq PRN Reason Stop Dose Admin Amitriptyline HCl 75 mg 09/13/19 22:00 09/16/19 21:42 Elavil - PO 75 mg HS [facility] Administration Apixaban 5 mg 09/13/19 22:00 09/17/19 09:41 Eliquis - PO 5 mg BID [facility] Administration Artificial Tears 1 drop 09/13/19 22:03 Artificial Tears OU BID PRN DRY EYES Atorvastatin Calcium 10 mg 09/13/19 22:00 09/16/19 21:43 Lipitor - PO 10 mg HS [facility] Administration Azithromycin 500 mg 09/16/19 12:45 09/17/19 09:40 Zithromax - PO 09/20/19 10:01 500 mg DAILY [facility] Administration Budesonide/Formoterol Fumarate 2 puff 09/14/19 22:00 09/17/19 09:41 Symbicort 160/4.5mcg - IH 2 puff BID [facility] Administration Cholecalciferol 2,000 unit 09/14/19 10:00 09/17/19 09:40 Vitamin D3 - PO 2,000 unit DAILY [facility] Administration Cyanocobalamin 1,000 mcg 09/14/19 10:00 09/17/19 11:05 Vitamin B12 - PO 1,000 mcg DAILY [facility] Administration Diltiazem HCl 300 mg 09/14/19 10:00 09/17/19 11:05 Cardizem Cd - PO 300 mg DAILY [facility] Administration Diphenhydramine HCl 25 mg 09/16/19 12:20 09/16/19 21:57 Benadryl - PO 25 mg TID PRN Administration ALLERGIES Famotidine 20 mg 09/14/19 12:00 09/17/19 09:41 Pepcid - PO 20 mg DAILY [facility] Administration Gabapentin 400 mg 09/16/19 12:21 09/17/19 13:27 Neurontin - PO 400 mg TID [facility] Administration Glipizide 2.5 mg 09/15/19 07:00 09/17/19 06:13 Glucotrol - PO 2.5 mg DAILY@0700 [facility] Administration Guaifenesin 10 ml 09/14/19 16:36 09/16/19 21:58 Robitussin - PO 10 ml Q4H PRN Administration COUGH Hydroxyzine Pamoate 100 mg 09/14/19 10:00 09/15/19 06:26 Vistaril - PO 100 mg BID PRN Administration itching Insulin Detemir 5 units 09/14/19 22:00 09/16/19 21:43 Levemir Vial SQ 5 units HS [facility] Administration Ipratropium [place] 1 amp 09/17/19 12:00 Atrovent 0.02% Nebulizer - NEB RQ4H [facility] Levalbuterol HCl 0.63 mg 09/16/19 20:00 09/17/19 07:25 Xopenex IH 0.63 mg RTID [facility] Administration Levalbuterol HCl 0.31 mg 09/16/19 15:08 Xopenex IH Q8H PRN ASTHMA Methylprednisolone Sodium Succinate 60 mg 09/17/19 11:44 Solu-Medrol - IVPUSH Q6H-IV [facility] Non-Formulary Medication 1 drop 09/13/19 20:45 Cyclosporine [Restasis] OU ASDIR [facility] Nystatin 500,000 units 09/14/19 18:00 09/17/19 11:05 Nystatin Oral Suspension - PO 500,000 units Q6HPO [facility] Administration Roflumilast 500 mcg 09/14/19 12:00 09/17/19 11:05 Daliresp PO 500 mcg DAILY [facility] Administration Tiotropium [place] 2 puff 09/14/19 10:00 09/17/19 09:41 Spiriva Respimat IH 2 puff DAILY [facility] Administration Laboratory Results - last 24 hr 09/17/19 10:32 POC Glucometer 168 S1 s2 RRR Lungs ronchi and crackles++ Abd- soft, NT no edema PLAN nebs standing increase medrol dose ID eval IV antibiotics CXR noted---> pneumonia Check Mycoplasma and urine antigens Influenza screen Spoke with ID Problem List - Problems (1) Shortness of breath Code(s): R06.02 - SHORTNESS OF BREATH (2) Acute and chronic respiratory failure with hypoxia Code(s): J96.21 - ACUTE AND CHRONIC RESPIRATORY FAILURE WITH HYPOXIA (3) Acute exacerbation of chronic obstructive pulmonary disease (COPD) Code(s): J44.1 - CHRONIC OBSTRUCTIVE PULMONARY DISEASE W (ACUTE) EXACERBATION (4) Anxiety Code(s): F41.9 - ANXIETY DISORDER, UNSPECIFIED (5) Diabetes mellitus Code(s): E11.9 - TYPE 2 DIABETES MELLITUS WITHOUT COMPLICATIONS
[2019-09-17] MEDS ORDERED: ALBUTEROL SO4 2.5/IPRATROPIUM 0.5 INH SOL 3 ML VIAL.NEB. NEB PRN (11:44)
[2019-09-17] MEDS: IPRATROPIUM BR 0.02% 0.5 MG/2.5 ML VIAL.NEB. NEB SCH ×3 (12:00→20:00)
--- NOTE | 2019-09-17 12:30 | PN ---
Progress Note (short form) - Note Progress Note: PULMONARY Still with shortness of breath, cough, chest tightness. Cough productive of thick yellow/green sputum. No fevers. CXR showing infiltrates. Vital Signs Period Temp Pulse Resp BP Sys/Jordan Pulse Ox Last 24 Hr 98 F-98.9 F 100-115 20-24 131-161/63-96 91-96 Gen: tachypneic with speaking Heart: RRR Lung: bilateral rhonchi, wheezes Abd: soft, nontender Ext: no edema CBC, BMP 09/15/19 06:35 09/15/19 06:35 Active Medications Amitriptyline HCl (Elavil -) 75 mg PO [facility] Last Admin: 09/16/19 21:42 Dose: 75 mg Apixaban (Eliquis -) 5 mg PO BID [facility] Last Admin: 09/17/19 09:41 Dose: 5 mg Artificial Tears (Artificial Tears) 1 drop OU BID PRN PRN Reason: DRY EYES Atorvastatin Calcium (Lipitor -) 10 mg PO [facility] Last Admin: 09/16/19 21:43 Dose: 10 mg Azithromycin (Zithromax -) 500 mg PO DAILY [facility] Stop: 09/20/19 10:01 Last Admin: 09/17/19 09:40 Dose: 500 mg Budesonide/Formoterol Fumarate (Symbicort 160/4.5mcg -) 2 puff IH BID [facility] Last Admin: 09/17/19 09:41 Dose: 2 puff Cholecalciferol (Vitamin D3 -) 2,000 unit PO DAILY [facility] Last Admin: 09/17/19 09:40 Dose: 2,000 unit Cyanocobalamin (Vitamin B12 -) 1,000 mcg PO DAILY [facility] Last Admin: 09/17/19 11:05 Dose: 1,000 mcg Diltiazem HCl (Cardizem Cd -) 300 mg PO DAILY [facility] Last Admin: 09/17/19 11:05 Dose: 300 mg Diphenhydramine HCl (Benadryl -) 25 mg PO TID PRN PRN Reason: ALLERGIES Last Admin: 09/16/19 21:57 Dose: 25 mg Famotidine (Pepcid -) 20 mg PO DAILY [facility] Last Admin: 09/17/19 09:41 Dose: 20 mg Gabapentin (Neurontin -) 400 mg PO TID [facility] Last Admin: 09/17/19 06:13 Dose: 400 mg Glipizide (Glucotrol -) 2.5 mg PO DAILY@0700 [facility] Last Admin: 09/17/19 06:13 Dose: 2.5 mg Guaifenesin (Robitussin -) 10 ml PO Q4H PRN PRN Reason: COUGH Last Admin: 09/16/19 21:58 Dose: 10 ml Hydroxyzine Pamoate (Vistaril -) 100 mg PO BID PRN PRN Reason: itching Last Admin: 09/15/19 06:26 Dose: 100 mg Insulin Detemir (Levemir Vial) 5 units SQ HS [facility] Last Admin: 09/16/19 21:43 Dose: 5 units Ipratropium [place] (Atrovent 0.02% Nebulizer -) 1 amp NEB RQ4H [facility] Levalbuterol HCl (Xopenex) 0.63 mg IH RTID [facility] Last Admin: 09/17/19 07:25 Dose: 0.63 mg Levalbuterol HCl (Xopenex) 0.31 mg IH Q8H PRN PRN Reason: ASTHMA Methylprednisolone Sodium Succinate (Solu-Medrol -) 60 mg IVPUSH Q6H-IV [facility] Non-Formulary Medication (Cyclosporine [Restasis]) 1 drop OU ASDIR [facility] Nystatin (Nystatin Oral Suspension -) 500,000 units PO Q6HPO [facility] Last Admin: 09/17/19 11:05 Dose: 500,000 units Roflumilast (Daliresp) 500 mcg PO DAILY [facility] Last Admin: 09/17/19 11:05 Dose: 500 mcg Tiotropium [place] (Spiriva Respimat) 2 puff IH DAILY [facility] Last Admin: 09/17/19 09:41 Dose: 2 puff A/P Acute COPD Exacerbation Pneumonia Atrial Fibrillation h/o CVA HTN DM Hyperlipidemia - continue medrol at current dose - inhaled bronchodilators standing and PRN - IV antibiotics, would get ID input as she is pcn allergic - trial of BiPAP to assist in work of breathing - O2 to keep SpO2 >90% - rate control - continue anticoagulation - glucose control while on systemic steroids
--- NOTE | 2019-09-17 13:51 | PN ---
Progress Note (short form) - Note Progress Note: ID consult dictated imp/reccd 59 yo female with PMH of copd- frequent steroid use, MRSA colonization-frequent skin abscesses, antibiotic allergies admitted 09/10 to 09/12 for copd exacerbation, readmitted 09/13 with progressive sob takes zithromax every other day at home progressive SOB cxray today with bibasilar infiltrates left greater then right on exam has bibasilar crackles reports yellow green sputum, no hemoptysis has been on rocephin in April with any issues plan vancomycin/cefepime for HAP (multiple recent admissions) sputum and blood cultures influenza screen steroids/bipap per pulmonary mrsa nares screen overall status guarded Problem List - Problems (1) Pneumonia Code(s): J18.9 - PNEUMONIA, UNSPECIFIED ORGANISM Qualifiers: Pneumonia type: due to unspecified organism Laterality: left Lung location: lower lobe of lung Qualified Code(s): J18.9 - Pneumonia, unspecified organism (2) COPD exacerbation Code(s): J44.1 - CHRONIC OBSTRUCTIVE PULMONARY DISEASE W (ACUTE) EXACERBATION (3) MRSA (methicillin resistant Staphylococcus aureus) colonization Code(s): Z22.322 - CARRIER OR SUSPECTED CARRIER OF METHICILLIN RESIS STAPH (4) Allergy to multiple antibiotics Code(s): Z88.1 - ALLERGY STATUS TO OTHER ANTIBIOTIC AGENTS STATUS
[2019-09-17] MEDS: VANCOMYCIN 1 GRAM (PRE-DOCKED) 1,000 MG/250 ML BAG IVPB SCH (14:25)
--- NOTE | 2019-09-17 15:03 | CONS ---
INFECTIOUS DISEASE CONSULTATION DATE OF CONSULTATION: DATE OF DICTATION: 09/17/2019 REQUESTING PHYSICIAN: Cristal Ludwig MD HISTORY: This is a 59-year-old woman I know well from prior admissions. She has a history of atrial fibrillation, coronary artery disease, CHF. She has a history of COPD. Recently she reports in August she has had multiple flares and has been taking her prednisone at home. History of MRSA with recurrent MRSA abscesses. Last was in June. She has been using Hibiclens daily and has not had a recurrence for the last 2 months. She recently had zoster on the right side of her head in July, which was the last time I saw her. She was recently admitted from September 10 to September 12 at [facility] for a COPD exacerbation. She had started taking prednisone at home without any relief. She got IV steroids and was discharged home. She then returned on the with progressive shortness of breath. Was readmitted. This morning she was noted to be more short of breath. She had a chest x-ray done that now shows bibasilar infiltrates left greater than right. She has productive sputum, yellow-green. No hemoptysis. She denies any fevers. She is requiring BiPAP. She has no chills. She reports no skin ulcers. PAST MEDICAL HISTORY: Notable for atrial fibrillation, coronary artery disease, CHF, DVT, hypertension, hyperlipidemia, bronchitis, COPD, pneumonia, PE. She has a history of GERD, recurrent MRSA soft tissue infections, osteoarthritis, and diabetes. PAST SURGICAL HISTORY: She has had a hernia repair in the past with a small-bowel obstruction. SOCIAL HISTORY: She is a never smoker. She lives alone. ALLERGIES: She is allergic to PENICILLIN and SULFA. MEDICATIONS: She was treated with ceftriaxone and Zithromax since April without any issues. Her medications at home include amitriptyline, Eliquis, Lipitor, vitamin D, B12, Restasis eye drops, diltiazem, gabapentin, hydroxyzine p.r.n., prednisone eye drops, and Spiriva. REVIEW OF SYSTEMS: She denies any nausea or vomiting. PHYSICAL EXAMINATION: Vital Signs: Her temperature is 98. She has had no fever since admission. Pulse of 111, blood pressure is 161/83, respiratory rate is 24. She is saturating 91% on a 50% venturi mask. HEENT: She is normocephalic. Her eyes are anicteric. She has no thrush. Neck: Supple. Lungs: Crackles at both bases. She has scattered wheezes. Heart: Regular rate and rhythm. Abdomen: Soft, nontender. Extremities: Without edema. Skin: She has no skin abscesses at this time. White count is 14.4, hemoglobin 8.8, platelets are 381. Her BUN 19, creatinine 0.7. Her last culture in the computer is from July when she grew MRSA from an axillary abscess. Chest x-ray findings are as stated. Notable for bibasilar infiltrates left greater than right. In summary, this is a 59-year-old woman with COPD, frequent steroid use, MRSA colonization with worsening shortness of breath. Chest x-ray with bibasilar infiltrates. Multiple recent hospitalizations, multiple recent admissions. She has been on oral Zithromax as an outpatient every other day as well. In summary, she has bibasilar pneumonia. Doubt atypical given the fact she has been on Zithromax as an outpatient. Urinary antigen has been ordered. Would obtain sputum and blood cultures. Would treat her with vancomycin and cefepime for hospital-acquired pneumonia. Would obtain an influenza screen. Would screen her nares for MRSA. Steroids and BiPAP per Pulmonary. Overall status is guarded. I spoke with her primary doctor at length. ADELINE RODRIGUEZ M.D. JEAN [id number]
[2019-09-17] MEDS: CEFEPIME 2 GM in DEXTROSE 5%-WATER 100 ML IVPB SCH ×2 (15:54→17:28)
[2019-09-17] MEDS: OSELTAMIVIR PHOSPHATE 75 MG CAPSULE PO SCH ×2 (17:28→22:59)
[2019-09-17] MEDS: AMITRIPTYLINE HCL 75 MG TABLET PO SCH (22:58)
[2019-09-17] MEDS: ATORVASTATIN CA 10 MG TABLET (FP) PO SCH (22:59)
[2019-09-17] MEDS: INSULIN (LEVEMIR) 100 UNITS/ML UNITS SQ SCH (23:57)
[2019-09-18] MEDS: IPRATROPIUM BR 0.02% 0.5 MG/2.5 ML VIAL.NEB. NEB SCH ×5 (00:19→20:30)
[2019-09-18] MEDS: NYSTATIN 500,000 UNITS/5 ML SUSPENSION PO SCH ×4 (01:20→17:31)
[2019-09-18] MEDS: CEFEPIME 2 GM in DEXTROSE 5%-WATER 100 ML IVPB SCH ×3 (03:26→19:22)
[2019-09-18] MEDS: methylPREDNISolone NA SUCC 40 MG/1 ML VIAL IVPUSH SCH ×4 (03:26→21:35)
[2019-09-18] MEDS: VANCOMYCIN 1 GRAM (PRE-DOCKED) 1,000 MG/250 ML BAG IVPB SCH ×2 (04:16→15:08)
[2019-09-18] MEDS: GABAPENTIN 400 MG CAPSULE PO SCH (06:35)
[2019-09-18] MEDS: glipiZIDE 5 MG TABLET (FP) PO SCH (06:36)
[2019-09-18 07:22] LABS: BASO % 0.4 % (0-2.0); HEMATOCRIT 31.5 % (32.4-45.2); HEMOGLOBIN 9.5 GM/dL (10.7-15.3); LYMPH % 1.6 % (8-40); MCH 22.2 pg (25.7-33.7); MCHC 30.1 g/dl (32.0-36.0); MEAN CELL VOLUME 73.9 fl (80-96); MEAN PLT VOLUME 7.1 fl (7.5-11.1); MONO % 1.7 % (3.8-10.2); NEUT % 96.3 % (42.8-82.8); PLATELET COUNT 281 K/MM3 (134-434); RBC 4.27 M/mm3 (3.60-5.2); RDW 19.2 % (11.6-15.6); WHITE BLOOD COUNT 15.6 K/mm3 (4.0-10.0)
[2019-09-18] MEDS: LEVALBUTEROL HCL 0.63 MG/3 ML VIAL.NEB. IH SCH ×3 (07:45→20:30)
[2019-09-18 07:54] LABS: ALBUMIN 2.1 g/dl (3.4-5.0); BILIRUBIN,TOTAL 0.5 mg/dL (0.2-1); BLOOD UREA NITROGEN 25.2 mg/dL (7-18); CALCIUM 8.4 mg/dL (8.5-10.1); CREATININE 0.7 mg/dL (0.55-1.3); TOT PROT 5.4 g/dl (6.4-8.2)
[2019-09-18] MEDS: PROPOFOL 1,000,000 MCG/100 ML VIAL IVPB SCH ×3 (09:45→22:35)
[2019-09-18] MEDS ORDERED: ALBUTEROL SO4 2.5/IPRATROPIUM 0.5 INH SOL 3 ML VIAL.NEB. NEB PRN (09:46)
[2019-09-18] MEDS ORDERED: fentaNYL CITRATE 250 MCG/5 ML VIAL ONE ×3 (10:43→20:17)
[2019-09-18] MEDS: FENTANYL INJECTION 500 MCG in DEXTROSE 5%-WATER - 90 ML IVPB SCH ×3 (10:45→20:24)
--- NOTE | 2019-09-18 10:47 | PN ---
Progress Note (short form) - Note Progress Note: Pt examined in ICU sent for respiratory failure now intubated and sedated High PEEP Low O2 sat-- 75% Vital Signs - 24 hr 09/17/19 09/17/19 09/17/19 12:30 14:30 14:33 Temperature 98.2 F Pulse Rate 115 H Respiratory 20 Rate Blood Pressure 148/89 O2 Sat by Pulse 90 L 91 L Oximetry (%) 09/17/19 09/17/19 09/18/19 20:00 22:00 00:20 Temperature Pulse Rate Respiratory Rate Blood Pressure O2 Sat by Pulse 92 L 90 L 92 L Oximetry (%) 09/18/19 09/18/19 09/18/19 01:46 08:00 09:50 Temperature 98.1 F 98 F Pulse Rate 113 H Respiratory 20 24 H 30 H Rate Blood Pressure 152/85 128/73 O2 Sat by Pulse 82 L Oximetry (%) Current Medications Generic Name Dose Route Start Last Admin Trade Name Freq PRN Reason Stop Dose Admin Amitriptyline HCl 75 mg 09/13/19 22:00 09/17/19 22:58 Elavil - PO 75 mg HS SANDEEP Administration Apixaban 5 mg 09/13/19 22:00 09/17/19 22:59 Eliquis - PO 5 mg BID SANDEEP Administration Artificial Tears 1 drop 09/13/19 22:03 Artificial Tears OU BID PRN DRY EYES Atorvastatin Calcium 10 mg 09/13/19 22:00 09/17/19 22:59 Lipitor - PO 10 mg HS SANDEEP Administration Azithromycin 500 mg 09/16/19 12:45 09/17/19 09:40 Zithromax - PO 09/20/19 10:01 500 mg DAILY SANDEEP Administration Budesonide/Formoterol Fumarate 2 puff 09/14/19 22:00 09/17/19 23:04 Symbicort 160/4.5mcg - IH Not Given BID SANDEEP Cholecalciferol 2,000 unit 09/14/19 10:00 09/17/19 09:40 Vitamin D3 - PO 2,000 unit DAILY SANDEEP Administration Cyanocobalamin 1,000 mcg 09/14/19 10:00 09/17/19 11:05 Vitamin B12 - PO 1,000 mcg DAILY SANDEEP Administration Diltiazem HCl 300 mg 09/14/19 10:00 09/17/19 11:05 Cardizem Cd - PO 300 mg DAILY SANDEEP Administration Diphenhydramine HCl 25 mg 09/16/19 12:20 09/16/19 21:57 Benadryl - PO 25 mg TID PRN Administration ALLERGIES Famotidine 20 mg 09/14/19 12:00 09/17/19 09:41 Pepcid - PO 20 mg DAILY SANDEEP Administration Gabapentin 400 mg 09/16/19 12:21 09/18/19 06:35 Neurontin - PO 400 mg TID SANDEEP Administration Glipizide 2.5 mg 09/15/19 07:00 09/18/19 06:36 Glucotrol - PO 2.5 mg DAILY@0700 SANDEEP Administration Guaifenesin 10 ml 09/14/19 16:36 09/16/19 21:58 Robitussin - PO 10 ml Q4H PRN Administration COUGH Hydroxyzine Pamoate 100 mg 09/14/19 10:00 09/15/19 06:26 Vistaril - PO 100 mg BID PRN Administration itching Cefepime HCl 2 gm/ Dextrose 100 mls @ 100 mls/hr 09/17/19 14:00 09/18/19 03: 26 IVPB 100 mls/hr Q8H-IV SANDEEP Administration Protocol Vancomycin HCl 1,000 mg in 250 mls @ 166.667 mls/hr 09/17/19 14:00 09/18/19 04:16 Vancomycin (Pre-Docked) IVPB 166.667 mls/hr Q12H SANDEEP Administration Protocol Propofol 1,000,000 mcg in 100 mls @ 2.273 mls/hr 09/18/19 09:45 09/18/19 09: 45 Diprivan - IVPB 5 mcg/kg/min TITR SAN[facility]EP 2.273 mls/hr Administration Protocol 5 MCG/KG/MIN Fentanyl 500 mcg/ Dextrose 100 mls @ 10 mls/hr 09/18/19 10:45 09/18/19 10:45 IVPB 50 mcg/hr TITR SANDEEP 10 mls/hr Administration 50 MCG/HR Insulin Detemir 5 units 09/14/19 22:00 09/17/19 23:57 Levemir Vial SQ 5 units HS SANDEEP Administration Ipratropium [place] 1 amp 09/17/19 12:00 09/18/19 04:00 Atrovent 0.02% Nebulizer - NEB 1 amp RQ4H SANDEEP Administration Levalbuterol HCl 0.63 mg 09/16/19 20:00 09/17/19 20:00 Xopenex IH 0.63 mg RTID SANDEEP Administration Levalbuterol HCl 0.31 mg 09/16/19 15:08 Xopenex IH Q8H PRN ASTHMA Methylprednisolone Sodium Succinate 60 mg 09/17/19 11:44 09/18/19 08:59 Solu-Medrol - IVPUSH 60 mg Q6H-IV SANDEEP Administration Non-Formulary Medication 1 drop 09/13/19 20:45 Cyclosporine [Restasis] OU ASDIR SANDEEP Nystatin 500,000 units 09/14/19 18:00 09/18/19 06:35 Nystatin Oral Suspension - PO 500,000 units Q6HPO SANDEEP Administration Oseltamivir Phosphate 75 mg 09/17/19 16:00 09/17/19 22:59 Tamiflu - PO 09/22/19 15:59 75 mg BID SANDEEP Administration Roflumilast 500 mcg 09/14/19 12:00 09/17/19 11:05 Daliresp PO 500 mcg DAILY SANDEEP Administration Tiotropium [place] 2 puff 09/14/19 10:00 09/17/19 09:41 Spiriva Respimat IH 2 puff DAILY SANDEEP Administration Laboratory Results - last 24 hr 09/17/19 09/17/19 09/17/19 13:50 17:37 23:54 WBC RBC Hgb Hct MCV MCH MCHC RDW Plt Count MPV Absolute Neuts (auto) Neutrophils % Lymphocytes % Monocytes % Eosinophils % Basophils % Nucleated RBC % Anticoagulation Therapy O2 Delivery Device Oxygen Flow Rate Vent Mode Vent Rate Mechanical Rate Pressure Support Vent Sodium Potassium Chloride Carbon Dioxide Anion Gap BUN Creatinine Est GFR (CKD-EPI)AfAm Est GFR (CKD-EPI)NonAf POC Glucometer 257 210 Random Glucose Calcium Total Bilirubin AST ALT Alkaline Phosphatase Total Protein Albumin Influenza A (Rapid) Positive A Influenza B (Rapid) Negative 09/18/19 09/18/19 09/18/19 06:52 06:52 10:30 WBC 15.6 H RBC 4.27 Hgb 9.5 L Hct 31.5 L MCV 73.9 L MCH 22.2 L MCHC 30.1 L RDW 19.2 H Plt Count 281 D MPV 7.1 L Absolute Neuts (auto) 15.0 H Neutrophils % 96.3 H Lymphocytes % 1.6 L Monocytes % 1.7 L Eosinophils % 0.0 Basophils % 0.4 Nucleated RBC % 0 Anticoagulation Therapy No Result Required. O2 Delivery Device No Result Required. Oxygen Flow Rate No Result Required. Vent Mode No Result Required. Vent Rate No Result Required. Mechanical Rate No Result Required. Pressure Support Vent No Result Required. Sodium 138 Potassium 4.0 Chloride 103 Carbon Dioxide 27 Anion Gap 9 BUN 25.2 H Creatinine 0.7 Est GFR (CKD-EPI)AfAm 109.91 Est GFR (CKD-EPI)NonAf 94.84 POC Glucometer Random Glucose 304 H Calcium 8.4 L Total Bilirubin 0.5 AST 18 ALT 20 Alkaline Phosphatase 149 H Total Protein 5.4 L Albumin 2.1 L Influenza A (Rapid) Influenza B (Rapid) Microbiology 09/17/19 14:08 Blood Culture - Preliminary Blood - Peripheral Venous Pending Organism 09/17/19 14:14 Mycoplasma Antibody - Preliminary Serum sedated intubated S1 s2 RRR Lungs ronchi and crackles++ Abd- soft, NT no edema PLAN COPD exacerbation Influenza Pneumonia acute hypoxic respiratory failure Diabetes --Remains critically ill -- vent setting per ICU -- Nebs standing -- Iv antibiotics -- medrol -- Tamiflu spoke with pt's son, explained pt's condition- -- he will come and see her Problem List - Problems (1) Shortness of breath Code(s): R06.02 - SHORTNESS OF BREATH (2) Acute and chronic respiratory failure with hypoxia Code(s): J96.21 - ACUTE AND CHRONIC RESPIRATORY FAILURE WITH HYPOXIA (3) Acute exacerbation of chronic obstructive pulmonary disease (COPD) Code(s): J44.1 - CHRONIC OBSTRUCTIVE PULMONARY DISEASE W (ACUTE) EXACERBATION (4) Anxiety Code(s): F41.9 - ANXIETY DISORDER, UNSPECIFIED (5) Diabetes mellitus Code(s): E11.9 - TYPE 2 DIABETES MELLITUS WITHOUT COMPLICATIONS
[2019-09-18 10:55] LABS: ARTERIAL BLD GAS O2 SATURATION 72.7 % (95-98); ARTERIAL BLOOD GAS BASE EXCESS 4.2 meq/l (-2-2); ARTERIAL BLOOD GAS PCO2 45.6 mmHg (35-45); ARTERIAL BLOOD GAS pH 7.42 (7.35-7.45)
[2019-09-18 10:57] LABS: ALLENS TEST POSITIVE
[2019-09-18 11:00] LABS: ARTERIAL BLOOD GAS PO2 < 49 mmHg (80-100)
[2019-09-18 11:06] LABS: ANISOCYTOSIS 1+; MACROCYTOSIS 0; OVALOCYTE 1+; PLATELET ESTIMATE NORMAL; TEAR DROP CELLS 1+
--- NOTE | 2019-09-18 11:09 | PN ---
Progress Note (short form) - Note Progress Note: transferred to telemetry for closer monitoring this am transferred to ICU with hypoxia despite bipap intubated and sedated on fiO2 100% Vital Signs Period Temp Pulse Resp BP Sys/Jordan Pulse Ox Last 24 Hr 98 F-98.2 F 98-115 20-36 106-152/70-89 82-92 cor-rrr lungs decreased bs at bases abd soft,nt ext no edema CBC, BMP 09/18/19 06:52 09/18/19 06:52 Microbiology 09/17/19 14:08 Blood - Peripheral Venous Blood Culture - Preliminary Pending Organism 09/17/19 14:14 Serum Mycoplasma Antibody - Preliminary inflluenza A POSITIVE imp/reccd Respiratory failure/Intubated Influenza A bacteremia- ?strep-?Pneumococcal pneumonia vanco/cefepime tamiflu urinary antigens-straight cath sputum and blood cultures pending repeat blood cultures in am vancomycin trough before fourth dose history of MRSA copd pen/sulfa allergies overall prognosis guarded d/w ICU team over 35 minutes spent in the care of this ICU patient Problem List - Problems (1) Pneumonia Code(s): J18.9 - PNEUMONIA, UNSPECIFIED ORGANISM Qualifiers: Pneumonia type: due to unspecified organism Laterality: left Lung location: lower lobe of lung Qualified Code(s): J18.9 - Pneumonia, unspecified organism (2) COPD exacerbation Code(s): J44.1 - CHRONIC OBSTRUCTIVE PULMONARY DISEASE W (ACUTE) EXACERBATION (3) MRSA (methicillin resistant Staphylococcus aureus) colonization Code(s): Z22.322 - CARRIER OR SUSPECTED CARRIER OF METHICILLIN RESIS STAPH (4) Allergy to multiple antibiotics Code(s): Z88.1 - ALLERGY STATUS TO OTHER ANTIBIOTIC AGENTS STATUS
[2019-09-18] MEDS: FAMOTIDINE 20 MG TABLET PO SCH (11:16)
[2019-09-18] MEDS: APIXABAN 5 MG TABLET PO SCH ×2 (11:16→21:34)
[2019-09-18] MEDS: ROFLUMILAST 500 MCG TABLET PO SCH (11:16)
[2019-09-18] MEDS: TIOTROPIUM BROMIDE 2.5 MCG (SPIRIVA) RESPIMAT INHALER IH SCH (11:16)
[2019-09-18] MEDS: BUDESONIDE/FORMETEROL FUMARATE 160/4.5 mcg INHALER IH SCH ×2 (11:16→22:06)
[2019-09-18] MEDS: CHOLECALCIFEROL (VIT D3) 1,000 UNIT (25 MCG) TABLET PO SCH (11:17)
[2019-09-18] MEDS: AZITHROMYCIN 250 MG TABLET PO SCH (11:17)
[2019-09-18] MEDS: OSELTAMIVIR PHOSPHATE 75 MG CAPSULE PO SCH ×2 (11:17→21:38)
[2019-09-18] MEDS: CYANOCOBALAMIN 1,000 MCG TABLET (FP) PO SCH (11:17)
--- NOTE | 2019-09-18 12:06 | PN ---
Teaching Attending Note Name of Resident: Sara De Dios ATTENDING PHYSICIAN STATEMENT I saw and evaluated the patient. I reviewed the resident's note and discussed the case with the resident. I agree with the resident's findings and plan as documented. SUBJECTIVE: Patient transferred from the floor in acute respiratory distress. Hxpoxic and using accessory muscles. Endotracheally intubated with Glidescope, Blade 3, Grade 2 view, 7.5 ETT secured at 22 at the left lip. (+) Capnograph color change. Intake & Output 09/15/19 09/16/19 09/17/19 09/18/19 23:59 23:59 23:59 23:59 Intake Total 300 1460 1220 350 Balance 300 1460 1220 350 Weight 167 lb Last Vital Signs Temp Pulse Resp BP Pulse Ox 98.2 F 98 H 36 H 106/70 90 L 09/18/19 10:00 09/18/19 10:00 09/18/19 10:00 09/18/19 10:00 09/18/19 10:00 Active Medications Amitriptyline HCl (Elavil -) 75 mg PO [facility] Last Admin: 09/17/19 22:58 Dose: 75 mg Apixaban (Eliquis -) 5 mg PO BID [facility] Last Admin: 09/18/19 11:16 Dose: Not Given Artificial Tears (Artificial Tears) 1 drop OU BID PRN PRN Reason: DRY EYES Atorvastatin Calcium (Lipitor -) 10 mg PO [facility] Last Admin: 09/17/19 22:59 Dose: 10 mg Azithromycin (Zithromax -) 500 mg PO DAILY [facility] Stop: 09/20/19 10:01 Last Admin: 09/18/19 11:17 Dose: Not Given Budesonide/Formoterol Fumarate (Symbicort 160/4.5mcg -) 2 puff IH BID [facility] Last Admin: 09/18/19 11:16 Dose: Not Given Cholecalciferol (Vitamin D3 -) 2,000 unit PO DAILY [facility] Last Admin: 09/18/19 11:17 Dose: Not Given Cyanocobalamin (Vitamin B12 -) 1,000 mcg PO DAILY [facility] Last Admin: 09/18/19 11:17 Dose: Not Given Diltiazem HCl (Cardizem Cd -) 300 mg PO DAILY [facility] Last Admin: 09/18/19 11:15 Dose: Not Given Diphenhydramine HCl (Benadryl -) 25 mg PO TID PRN PRN Reason: ALLERGIES Last Admin: 09/16/19 21:57 Dose: 25 mg Famotidine (Pepcid -) 20 mg PO DAILY [facility] Last Admin: 09/18/19 11:16 Dose: Not Given Gabapentin (Neurontin -) 400 mg PO TID [facility] Last Admin: 09/18/19 06:35 Dose: 400 mg Glipizide (Glucotrol -) 2.5 mg PO DAILY@0700 [facility] Last Admin: 09/18/19 06:36 Dose: 2.5 mg Guaifenesin (Robitussin -) 10 ml PO Q4H PRN PRN Reason: COUGH Last Admin: 09/16/19 21:58 Dose: 10 ml Hydroxyzine Pamoate (Vistaril -) 100 mg PO BID PRN PRN Reason: itching Last Admin: 09/15/19 06:26 Dose: 100 mg Cefepime HCl 2 gm/ Dextrose 100 mls @ 100 mls/hr IVPB Q8H-IV SANDEEP; Protocol Last Admin: 09/18/19 03:26 Dose: 100 mls/hr Vancomycin HCl (Vancomycin (Pre-Docked)) 1,000 mg in 250 mls @ 166.667 mls/hr IVPB Q12H [facility]DEEP; Protocol Last Admin: 09/18/19 04:16 Dose: 166.667 mls/hr Propofol (Diprivan -) 1,000,000 mcg in 100 mls @ 2.273 mls/hr IVPB TITR [facility]; Protocol Last Titration: 09/18/19 11:00 Dose: 30 mcg/kg/min, 13.635 mls/hr Fentanyl 500 mcg/ Dextrose 100 mls @ 10 mls/hr IVPB TITR [facility] Last Admin: 09/18/19 10:45 Dose: 50 mcg/hr, 10 mls/hr Insulin Detemir (Levemir Vial) 5 units SQ HS [facility] Last Admin: 09/17/19 23:57 Dose: 5 units Ipratropium [place] (Atrovent 0.02% Nebulizer -) 1 amp NEB RQID SANDEEP Levalbuterol HCl (Xopenex) 0.63 mg IH RTID [facility] Last Admin: 09/18/19 07:45 Dose: 0.63 mg Levalbuterol HCl (Xopenex) 0.31 mg IH Q8H PRN PRN Reason: ASTHMA Methylprednisolone Sodium Succinate (Solu-Medrol -) 60 mg IVPUSH Q6H-IV [facility]EP Last Admin: 09/18/19 08:59 Dose: 60 mg Non-Formulary Medication (Cyclosporine [Restasis]) 1 drop OU ASDIR [facility]DEEP Nystatin (Nystatin Oral Suspension -) 500,000 units PO Q6HPO [facility] Last Admin: 09/18/19 06:35 Dose: 500,000 units Oseltamivir Phosphate (Tamiflu -) 75 mg PO BID [facility] Stop: 09/22/19 15:59 Last Admin: 09/18/19 11:17 Dose: Not Given Roflumilast (Daliresp) 500 mcg PO DAILY [facility] Last Admin: 09/18/19 11:16 Dose: Not Given Tiotropium [place] (Spiriva Respimat) 2 puff IH DAILY [facility] Last Admin: 09/18/19 11:16 Dose: Not Given Gen: Acute Respiratory Distress Heart: RRR Lung: bilateral rhonchi and diffuse expiratory wheezing Abd: soft, nontender Ext: no edema Laboratory Results - last 24 hr 09/17/19 09/17/19 09/17/19 13:50 17:37 23:54 WBC RBC Hgb Hct MCV MCH MCHC RDW Plt Count MPV Absolute Neuts (auto) Neutrophils % Neutrophils % (Manual) Band Neutrophils % Lymphocytes % Lymphocytes % (Manual) Monocytes % Monocytes % (Manual) Eosinophils % Eosinophils % (Manual) Basophils % Basophils % (Manual) Myelocytes % (Man) Promyelocytes % (Man) Blast Cells % (Manual) Nucleated RBC % Metamyelocytes Hypochromia Platelet Estimate Polychromasia Poikilocytosis Anisocytosis Microcytosis Macrocytosis Tear Drop Cells Ovalocytes [place] Cells Anticoagulation Therapy Puncture Site ABG pH ABG pCO2 at Pt Temp ABG pO2 at Pt Temp ABG HCO3 ABG O2 Sat (Measured) ABG O2 Content ABG Base Excess Foreign Test O2 Delivery Device Oxygen Flow Rate Vent Mode Vent Rate Mechanical Rate Pressure Support Vent Sodium Potassium Chloride Carbon Dioxide Anion Gap BUN Creatinine Est GFR (CKD-EPI)AfAm Est GFR (CKD-EPI)NonAf POC Glucometer 257 210 Random Glucose Calcium Total Bilirubin AST ALT Alkaline Phosphatase Total Protein Albumin Influenza A (Rapid) Positive A Influenza B (Rapid) Negative 09/18/19 09/18/19 09/18/19 06:52 06:52 10:30 WBC 15.6 H RBC 4.27 Hgb 9.5 L Hct 31.5 L MCV 73.9 L MCH 22.2 L MCHC 30.1 L RDW 19.2 H Plt Count 281 D MPV 7.1 L Absolute Neuts (auto) 15.0 H Neutrophils % 96.3 H Neutrophils % (Manual) 89.5 H Band Neutrophils % 6.3 Lymphocytes % 1.6 L Lymphocytes % (Manual) 2.1 L D Monocytes % 1.7 L Monocytes % (Manual) 1 L Eosinophils % 0.0 Eosinophils % (Manual) 0.0 Basophils % 0.4 Basophils % (Manual) 0.0 Myelocytes % (Man) 0 Promyelocytes % (Man) 0 Blast Cells % (Manual) 0 Nucleated RBC % 0 Metamyelocytes 0 Hypochromia 0 Platelet Estimate Normal Polychromasia 1+ Poikilocytosis 1+ Anisocytosis 1+ Microcytosis 1+ Macrocytosis 0 Tear Drop Cells 1+ Ovalocytes 1+ [place] Cells 1+ Anticoagulation Therapy No Result Required. Puncture Site Right radial ABG pH 7.42 ABG pCO2 at Pt Temp 45.6 H ABG pO2 at Pt Temp < 49 L* ABG HCO3 28.8 H ABG O2 Sat (Measured) 72.7 L ABG O2 Content No Result Required. ABG Base Excess 4.2 H Foreign Test Positive O2 Delivery Device No Result Required. Oxygen Flow Rate No Result Required. Vent Mode No Result Required. Vent Rate No Result Required. Mechanical Rate No Result Required. Pressure Support Vent No Result Required. Sodium 138 Potassium 4.0 Chloride 103 Carbon Dioxide 27 Anion Gap 9 BUN 25.2 H Creatinine 0.7 Est GFR (CKD-EPI)AfAm 109.91 Est GFR (CKD-EPI)NonAf 94.84 POC Glucometer Random Glucose 304 H Calcium 8.4 L Total Bilirubin 0.5 AST 18 ALT 20 Alkaline Phosphatase 149 H Total Protein 5.4 L Albumin 2.1 L Influenza A (Rapid) Influenza B (Rapid) A/P Acute Respiratory Failure Acute COPD Exacerbation Pneumonia Atrial Fibrillation h/o CVA HTN DM Hyperlipidemia Influenza A - AC Mode of vent - Check ABG - IV Medrol - inhaled bronchodilators standing and PRN - ABX per ID - Tamiflu BID - rate control - continue anticoagulation - glucose control while on systemic steroids - Requires ICU monitoring for mechanical ventilation Dr Fang Critical care time spent in reviewing chart, evaluating patient and formulating plan - 36 minutes.
[2019-09-18 12:53] LABS: ARTERIAL BLD GAS O2 SATURATION 95.8 % (95-98); ARTERIAL BLOOD GAS BASE EXCESS 4.7 meq/l (-2-2); ARTERIAL BLOOD GAS PCO2 54.4 mmHg (35-45); ARTERIAL BLOOD GAS PO2 95.6 mmHg (80-100); ARTERIAL BLOOD GAS pH 7.37 (7.35-7.45)
--- NOTE | 2019-09-18 13:06 | PROC ---
<Leatha Brunson - Last Filed: 09/18/19 13:05> Central Line Insertion Indication: Poor Venous Access Risks and Benefits Explained: Yes Consent on Chart: Yes Central Line: Triple Lumen Catheter Anesthesia: 1% Lidocaine Sterile Technique: Yes Ultrasound Guided Assistance: Yes Position: Right Internal Jugular Post Insertion: Yes: Bilateral Breath Sounds, Bilateral Chest Expansion, Chest X-Ray Ordered Sterile Dressing Applied: Yes <Kd Lugo MD - Last Filed: 09/18/19 17:53> Procedure Note Procedure: I supervised and was present during the entire procedure. Kd Lugo MD
[2019-09-18] MEDS ORDERED: PT OWN MED DRAWER 7, Y5N ONE ×5 (13:17→23:14)
[2019-09-18] MEDS ORDERED: MIDAZOLAM HCL 5 MG/1 ML Single Dose Vial IVPUSH ONE (13:41)
[2019-09-18] MEDS ORDERED: PROPOFOL 200 MG/20 ML VIAL IVPUSH ONE (13:41)
[2019-09-18] MEDS ORDERED: GABAPENTIN 250 MG/5 ML ORAL SOLUTION, 470 ML BOTTLE PO SCH (14:00)
[2019-09-18 14:31] LABS: ALLENS TEST POSITIVE
[2019-09-18] MEDS: GABAPENTIN 250 MG/5 ML ORAL SOLUTION, 470 ML BOTTLE GT SCH ×2 (14:34→21:37)
[2019-09-18] MEDS: FAMOTIDINE 40 MG/5 ML ORAL SUSPENSION NGT SCH (14:35)
--- NOTE | 2019-09-18 15:02 | CONSULT ---
Consultation: REQUESTING PROVIDER: CONSULT REQUEST: We have been asked to medically evaluate this patient for respiratory distress. HISTORY OF PRESENT ILLNESS: 59 y.o. F PMH COPD and asthma (never intubated in the past), HTN, HLD, DM, A- fib (on eliquis), CVA w/ R sided deficits, recent episode shingles 07/2019 w/ residual R eye visual deficits, postherpetic neuralgia now on gabapentin, multiple mrsa infections in past, recent admission 09/10-09/12/2019 for acute copd exacerbation who presented again on 09/13 for worsening dyspnea. Patient was admitted and started on duonebs, solumedrol (continued from home prednisone dose). Today patient had desats on med surg floor to 80s, difficulty w/ breathing. Brought to ICU & intubated for worsening acute respiratory failure. Central line placed L IJ for venous access. REVIEW OF SYSTEMS: CONSTITUTIONAL: Absent: fever, chills, diaphoresis, generalized weakness, malaise, loss of appetite, weight change HEENT: Absent: rhinorrhea, nasal congestion, throat pain, throat swelling, difficulty swallowing, mouth swelling, ear pain, eye pain, visual changes CARDIOVASCULAR: Absent: chest pain, syncope, palpitations, irregular heart rate, lightheadedness , peripheral edema RESPIRATORY: shortness of breath Absent: cough, dyspnea with exertion, orthopnea, wheezing, stridor, hemoptysis GASTROINTESTINAL: Absent: abdominal pain, abdominal distension, nausea, vomiting, diarrhea, constipation, melena, hematochezia GENITOURINARY: Absent: dysuria, frequency, urgency, hesitancy, hematuria, flank pain, genital pain MUSCULOSKELETAL: Absent: myalgia, arthralgia, joint swelling, back pain, neck pain SKIN: Absent: rash, itching, pallor HEMATOLOGIC/IMMUNOLOGIC: Absent: easy bleeding, easy bruising, lymphadenopathy, frequent infections ENDOCRINE: Absent: unexplained weight gain, unexplained weight loss, heat intolerance, cold intolerance NEUROLOGIC: Absent: headache, focal weakness or paresthesias, dizziness, unsteady gait, seizure, mental status changes, bladder or bowel incontinence PSYCHIATRIC: Absent: anxiety, depression, suicidal or homicidal ideation, hallucinations. PHYSICAL EXAMINATION Vital Signs - 24 hr 09/17/19 09/17/19 09/17/19 14:30 14:33 20:00 Temperature 98.2 F Pulse Rate 115 H Respiratory 20 Rate Blood Pressure 148/89 O2 Sat by Pulse 91 L 92 L Oximetry (%) 09/17/19 09/18/19 09/18/19 22:00 00:20 01:46 Temperature 98.1 F Pulse Rate 113 H Respiratory 20 Rate Blood Pressure 152/85 O2 Sat by Pulse 90 L 92 L Oximetry (%) 09/18/19 09/18/19 09/18/19 07:40 08:00 09:50 Temperature 98 F Pulse Rate Respiratory 24 H 30 H Rate Blood Pressure 128/73 O2 Sat by Pulse 82 L 82 L Oximetry (%) 09/18/19 09/18/19 09/18/19 10:00 12:00 14:00 Temperature 98.2 F 98.0 F 98.1 F Pulse Rate 98 H 91 H 90 Respiratory 36 H 36 H Rate Blood Pressure 106/70 109/69 111/73 O2 Sat by Pulse 90 L Oximetry (%) GENERAL: Now intubated & sedated HEENT: ET tube, OGT in place. LUNGS: Scattered crackles throughout HEART: Regular rate and rhythm, normal S1 and S2 without murmur, rub or gallop. ABDOMEN: Soft NTND +BS EXTREMITIES: 2+ pulses, warm, well-perfused SKIN: Scalp excoriations Laboratory Results - last 24 hr 09/17/19 09/17/19 09/17/19 13:50 17:37 23:54 WBC RBC Hgb Hct MCV MCH MCHC RDW Plt Count MPV Absolute Neuts (auto) Neutrophils % Neutrophils % (Manual) Band Neutrophils % Lymphocytes % Lymphocytes % (Manual) Monocytes % Monocytes % (Manual) Eosinophils % Eosinophils % (Manual) Basophils % Basophils % (Manual) Myelocytes % (Man) Promyelocytes % (Man) Blast Cells % (Manual) Nucleated RBC % Metamyelocytes Hypochromia Platelet Estimate Polychromasia Poikilocytosis Anisocytosis Microcytosis Macrocytosis Tear Drop Cells Ovalocytes Mark Cells Anticoagulation Therapy Puncture Site ABG pH ABG pCO2 at Pt Temp ABG pO2 at Pt Temp ABG HCO3 ABG O2 Sat (Measured) ABG O2 Content ABG Base Excess Foreign Test O2 Delivery Device Oxygen Flow Rate Vent Mode Vent Rate Mechanical Rate Pressure Support Vent Sodium Potassium Chloride Carbon Dioxide Anion Gap BUN Creatinine Est GFR (CKD-EPI)AfAm Est GFR (CKD-EPI)NonAf POC Glucometer 257 210 Random Glucose Calcium Total Bilirubin AST ALT Alkaline Phosphatase Total Protein Albumin Influenza A (Rapid) Positive A Influenza B (Rapid) Negative 09/18/19 09/18/19 09/18/19 06:52 06:52 10:30 WBC 15.6 H RBC 4.27 Hgb 9.5 L Hct 31.5 L MCV 73.9 L MCH 22.2 L MCHC 30.1 L RDW 19.2 H Plt Count 281 D MPV 7.1 L Absolute Neuts (auto) 15.0 H Neutrophils % 96.3 H Neutrophils % (Manual) 89.5 H Band Neutrophils % 6.3 Lymphocytes % 1.6 L Lymphocytes % (Manual) 2.1 L D Monocytes % 1.7 L Monocytes % (Manual) 1 L Eosinophils % 0.0 Eosinophils % (Manual) 0.0 Basophils % 0.4 Basophils % (Manual) 0.0 Myelocytes % (Man) 0 Promyelocytes % (Man) 0 Blast Cells % (Manual) 0 Nucleated RBC % 0 Metamyelocytes 0 Hypochromia 0 Platelet Estimate Normal Polychromasia 1+ Poikilocytosis 1+ Anisocytosis 1+ Microcytosis 1+ Macrocytosis 0 Tear Drop Cells 1+ Ovalocytes 1+ Mark Cells 1+ Anticoagulation Therapy No Result Required. Puncture Site Right radial ABG pH 7.42 ABG pCO2 at Pt Temp 45.6 H ABG pO2 at Pt Temp < 49 L* ABG HCO3 28.8 H ABG O2 Sat (Measured) 72.7 L ABG O2 Content No Result Required. ABG Base Excess 4.2 H Foreign Test Positive O2 Delivery Device No Result Required. Oxygen Flow Rate No Result Required. Vent Mode No Result Required. Vent Rate No Result Required. Mechanical Rate No Result Required. Pressure Support Vent No Result Required. Sodium 138 Potassium 4.0 Chloride 103 Carbon Dioxide 27 Anion Gap 9 BUN 25.2 H Creatinine 0.7 Est GFR (CKD-EPI)AfAm 109.91 Est GFR (CKD-EPI)NonAf 94.84 POC Glucometer Random Glucose 304 H Calcium 8.4 L Total Bilirubin 0.5 AST 18 ALT 20 Alkaline Phosphatase 149 H Total Protein 5.4 L Albumin 2.1 L Influenza A (Rapid) Influenza B (Rapid) 09/18/19 12:30 WBC RBC Hgb Hct MCV MCH MCHC RDW Plt Count MPV Absolute Neuts (auto) Neutrophils % Neutrophils % (Manual) Band Neutrophils % Lymphocytes % Lymphocytes % (Manual) Monocytes % Monocytes % (Manual) Eosinophils % Eosinophils % (Manual) Basophils % Basophils % (Manual) Myelocytes % (Man) Promyelocytes % (Man) Blast Cells % (Manual) Nucleated RBC % Metamyelocytes Hypochromia Platelet Estimate Polychromasia Poikilocytosis Anisocytosis Microcytosis Macrocytosis Tear Drop Cells Ovalocytes Mark Cells Anticoagulation Therapy No Result Required. Puncture Site ABG pH ABG pCO2 at Pt Temp ABG pO2 at Pt Temp ABG HCO3 ABG O2 Sat (Measured) ABG O2 Content ABG Base Excess Foreign Test O2 Delivery Device No Result Required. Oxygen Flow Rate No Result Required. Vent Mode No Result Required. Vent Rate No Result Required. Mechanical Rate No Result Required. Pressure Support Vent No Result Required. Sodium Potassium Chloride Carbon Dioxide Anion Gap BUN Creatinine Est GFR (CKD-EPI)AfAm Est GFR (CKD-EPI)NonAf POC Glucometer Random Glucose Calcium Total Bilirubin AST ALT Alkaline Phosphatase Total Protein Albumin Influenza A (Rapid) Influenza B (Rapid) Active Medications Generic Name Dose Route Start Last Admin Trade Name Freq PRN Reason Stop Dose Admin Amitriptyline HCl 75 mg 09/13/19 22:00 09/17/19 22:58 Elavil - PO 75 mg HS [facility] Administration Apixaban 5 mg 09/13/19 22:00 09/18/19 11:16 Eliquis - PO Not Given BID [facility] Artificial Tears 1 drop 09/13/19 22:03 Artificial Tears OU BID PRN DRY EYES Atorvastatin Calcium 10 mg 09/13/19 22:00 09/17/19 22:59 Lipitor - PO 10 mg HS [facility] Administration Budesonide/Formoterol Fumarate 2 puff 09/14/19 22:00 09/18/19 11:16 Symbicort 160/4.5mcg - IH Not Given BID [facility] Cholecalciferol 2,000 unit 09/14/19 10:00 09/18/19 11:17 Vitamin D3 - PO Not Given DAILY [facility] Cyanocobalamin 1,000 mcg 09/14/19 10:00 09/18/19 11:17 Vitamin B12 - PO Not Given DAILY [facility] Diltiazem HCl 300 mg 09/14/19 10:00 09/18/19 11:15 Cardizem Cd - PO Not Given DAILY [facility] Diphenhydramine HCl 25 mg 09/16/19 12:20 09/16/19 21:57 Benadryl - PO 25 mg TID PRN Administration ALLERGIES Famotidine 20 mg 09/18/19 14:00 Pepcid NGT DAILY [facility] Gabapentin 400 mg 09/18/19 14:00 Neurontin Oral Liquid - GT TID [facility] Glipizide 2.5 mg 09/15/19 07:00 09/18/19 06:36 Glucotrol - PO 2.5 mg DAILY@0700 [facility] Administration Guaifenesin 10 ml 09/14/19 16:36 09/16/19 21:58 Robitussin - PO 10 ml Q4H PRN Administration COUGH Hydroxyzine Pamoate 100 mg 09/14/19 10:00 09/15/19 06:26 Vistaril - PO 100 mg BID PRN Administration itching Cefepime HCl 2 gm/ Dextrose 100 mls @ 100 mls/hr 09/17/19 14:00 09/18/19 03: 26 IVPB 100 mls/hr Q8H-IV [facility] Administration Protocol Vancomycin HCl 1,000 mg in 250 mls @ 166.667 mls/hr 09/17/19 14:00 09/18/19 04:16 Vancomycin (Pre-Docked) IVPB 166.667 mls/hr Q12H [facility] Administration Protocol Propofol 1,000,000 mcg in 100 mls @ 2.273 mls/hr 09/18/19 09:45 09/18/19 11: 00 Diprivan - IVPB 30 mcg/kg/min TITR [facility] 13.635 mls/hr Titration Protocol 5 MCG/KG/MIN Fentanyl 500 mcg/ Dextrose 100 mls @ 10 mls/hr 09/18/19 10:45 09/18/19 10:45 IVPB 50 mcg/hr TITR [facility] 10 mls/hr Administration 50 MCG/HR Insulin Detemir 5 units 09/14/19 22:00 09/17/19 23:57 Levemir Vial SQ 5 units HS [facility] Administration Ipratropium Hernandez 1 amp 09/18/19 16:00 Atrovent 0.02% Nebulizer - NEB RQID [facility] Levalbuterol HCl 0.63 mg 09/16/19 20:00 09/18/19 07:45 Xopenex IH 0.63 mg RTID [facility] Administration Levalbuterol HCl 0.31 mg 09/16/19 15:08 Xopenex IH Q8H PRN ASTHMA Methylprednisolone Sodium Succinate 60 mg 09/17/19 11:44 09/18/19 08:59 Solu-Medrol - IVPUSH 60 mg Q6H-IV [facility] Administration Non-Formulary Medication 1 drop 09/13/19 20:45 Cyclosporine [Restasis] OU ASDIR [facility] Nystatin 500,000 units 09/14/19 18:00 09/18/19 12:04 Nystatin Oral Suspension - PO Not Given Q6HPO [facility] Oseltamivir Phosphate 75 mg 09/17/19 16:00 09/18/19 11:17 Tamiflu - PO 09/22/19 15:59 Not Given BID [facility] Roflumilast 500 mcg 09/14/19 12:00 09/18/19 11:16 Daliresp PO Not Given DAILY [facility] Tiotropium Hernandez 2 puff 09/14/19 10:00 09/18/19 11:16 Spiriva Respimat IH Not Given DAILY [facility] ASSESSMENT/PLAN: 59 y.o. F PMH COPD and asthma (never intubated in the past), HTN, HLD, DM, A- fib (on eliquis), CVA w/ R sided deficits, recent episode shingles 07/2019 w/ residual R eye visual deficits, postherpetic neuralgia now on gabapentin, multiple mrsa infections in past, recent admission 09/10-09/12/2019 for acute copd exacerbation who presented again on 09/13 for worsening dyspnea. Now intubated 22 worsening respiratory distress. #MOLDER SWEEP -Sedated on propofol & fentanyl -Adding versed drip -on gabapentin for postherpetic neuralgia #Pulm -Acute hypercapnic respiratory failure -Flu A +, on tamiflu -Now intubated -f/u sputum culture, legionella & s penumo ag -continue inhaled bronchodilators -maintain O2 sat >90% #ID -extensive mrsa history -vanc/ cefepime -ID following #PPX -on eliquis for a-fib -pepcid 20mg ogt #FENLTD -no standing fluids -trending lytes replete prn -NPO -central line placed today R IJ -coleman placed today Dispo: We will continue to follow the patient. Thank you for this consultative opportunity. Visit type - Emergency Visit Emergency Visit: No - New Patient This patient is new to me today: Yes Date on this admission: 09/18/19 - Critical Care Critical Care patient: Yes Total Critical Care Time (in minutes): 45 Critical Care Statement: The care of this patient involved high complexity decision making to prevent further life threatening deterioration of the patient 's condition and/or to evaluate & treat vital organ system(s) failure or risk of failure. ATTENDING PHYSICIAN STATEMENT I saw and evaluated the patient. I reviewed the resident's note and discussed the case with the resident. I agree with the resident's findings and plan as documented. SUBJECTIVE: OBJECTIVE: ASSESSMENT AND PLAN:
[2019-09-18] MEDS: MIDAZOLAM IN 0.9 % SOD.CHLORID 100 MG/100 ML PLAST..BAG IVPB SCH (15:38)
[2019-09-18] MEDS: VECURONIUM BROMIDE 50 MG in DEXTROSE 5%-WATER - 250 ML IVPB SCH (19:09)
[2019-09-18] MEDS ORDERED: ARTIFICIAL TEARS (POLYVINYL ALCOHOL) OPTH DROPS OU PRN (19:33)
[2019-09-18] MEDS ORDERED: LEVALBUTEROL HCL 0.31 MG/3 ML VIAL.NEB IH PRN (19:33)
[2019-09-18] MEDS ORDERED: guaiFENesin 200 MG/10 ML 10 ML UNIT-DOSE CUPS PO PRN (19:33)
[2019-09-18] MEDS ORDERED: PATIENT'S OWN MEDICATION (NON-FORMULARY) (Cyclosporine [Restasis] 1 DROP) OU SCH (19:33)
[2019-09-18] MEDS ORDERED: diphenhydrAMINE HCL 25 MG CAPSULE (FP) PO PRN (19:33)
[2019-09-18] MEDS ORDERED: hydrOXYzine PAMOATE 50 MG CAPSULE (FP) PO PRN (19:33)
[2019-09-18] MEDS: CHLORHEXIDINE GLUCONATE 4% CLEANSER FOR DECOLONIZATION TP SCH (21:33)
[2019-09-18] MEDS: MUPIROCIN 2% TOPICAL OINTMENT FOR DECOLONIZATION NS SCH ×2 (21:34→21:35)
[2019-09-18] MEDS: ATORVASTATIN CA 10 MG TABLET (FP) PO SCH (21:34)
[2019-09-18] MEDS ORDERED: AMITRIPTYLINE HCL 75 MG TABLET PO SCH (22:00)
[2019-09-18] MEDS: INSULIN (LEVEMIR) 100 UNITS/ML UNITS SQ SCH (22:08)
[2019-09-18] MEDS ORDERED: NOREPINEPHRINE BITARTRATE 4 MG/4 ML ML IV ONE (23:58)
[2019-09-19] MEDS: NOREPINEPHRINE BITARTRATE 4,000 MCG in DEXTROSE 5%-WATER - 496 ML IV SCH (00:15)
[2019-09-19] MEDS ORDERED: VANCOMYCIN HCL 1,500 MG in DEXTROSE 5%-WATER - 500 ML IVPB SCH (00:30)
[2019-09-19] MEDS ORDERED: fentaNYL CITRATE 250 MCG/5 ML VIAL ONE ×4 (00:39→20:27)
[2019-09-19] MEDS: FENTANYL INJECTION 500 MCG in DEXTROSE 5%-WATER - 90 ML IVPB SCH ×3 (00:43→11:29)
[2019-09-19] MEDS: NYSTATIN 500,000 UNITS/5 ML SUSPENSION PO SCH ×4 (00:47→18:00)
[2019-09-19] MEDS: MIDAZOLAM IN 0.9 % SOD.CHLORID 100 MG/100 ML PLAST..BAG IVPB SCH (00:57)
[2019-09-19] MEDS: CEFEPIME 2 GM in DEXTROSE 5%-WATER 100 ML IVPB SCH ×2 (01:06→10:43)
[2019-09-19] MEDS: methylPREDNISolone NA SUCC 40 MG/1 ML VIAL IVPUSH SCH ×4 (02:27→22:18)
[2019-09-19] MEDS ORDERED: VANCOMYCIN HCL 1,250 MG in DEXTROSE 5%-WATER - 250 ML IVPB SCH (03:00)
[2019-09-19] MEDS: GABAPENTIN 250 MG/5 ML ORAL SOLUTION, 470 ML BOTTLE GT SCH ×3 (05:12→22:47)
[2019-09-19] MEDS: PROPOFOL 1,000,000 MCG/100 ML VIAL IVPB SCH ×3 (06:25→19:48)
[2019-09-19 06:55] LABS: HEMATOCRIT 30.6 % (32.4-45.2); HEMOGLOBIN 8.8 GM/dL (10.7-15.3); LYMPH % 1.3 % (8-40); MCH 22.3 pg (25.7-33.7); MCHC 28.7 g/dl (32.0-36.0); MEAN CELL VOLUME 77.7 fl (80-96); MEAN PLT VOLUME 7.8 fl (7.5-11.1); MONO % 2.9 % (3.8-10.2); NEUT % 95.8 % (42.8-82.8); PLATELET COUNT 292 K/MM3 (134-434); RBC 3.93 M/mm3 (3.60-5.2); RDW 19.3 % (11.6-15.6); WHITE BLOOD COUNT 19.1 K/mm3 (4.0-10.0)
[2019-09-19] MEDS ORDERED: PT OWN MED DRAWER 7, Y5N ONE ×3 (08:17→21:45)
[2019-09-19 08:21] LABS: BASO % 0.3 % (0-2.0); EOS % 0.1 % (0-4.5); HEMATOCRIT 31.2 % (32.4-45.2); HEMOGLOBIN 8.8 GM/dL (10.7-15.3); LYMPH % 1.6 % (8-40); MCHC 28.1 g/dl (32.0-36.0); MEAN CELL VOLUME 78.4 fl (80-96); MEAN PLT VOLUME 7.4 fl (7.5-11.1); MONO % 2.5 % (3.8-10.2); NEUT % 95.5 % (42.8-82.8); PLATELET COUNT 290 K/MM3 (134-434); RBC 3.98 M/mm3 (3.60-5.2); RDW 18.7 % (11.6-15.6); WHITE BLOOD COUNT 20.5 K/mm3 (4.0-10.0)
[2019-09-19] MEDS ORDERED: dilTIAZem HCL 50 MG/10 ML - 10 ML VIAL IVPUSH PRN (08:22)
[2019-09-19 09:06] LABS: ALK PHOS 92 U/L (45-117); ANION GAP 13 MMOL/L (8-16); BILIRUBIN,TOTAL 0.4 mg/dL (0.2-1); BLOOD UREA NITROGEN 57.2 mg/dL (7-18); CALCIUM 7.3 mg/dL (8.5-10.1); CHLORIDE 92 mmol/L (98-107); CO2 24 mmol/L (21-32); CREATININE 2.4 mg/dL (0.55-1.3); GLUCOSE,RANDOM 347 mg/dL (74-106); MAGNESIUM 3.4 mg/dL (1.8-2.4); SGOT/AST 40 U/L (15-37); SGPT/ALT 32 U/L (13-61); SODIUM 129 mmol/L (136-145); TOT PROT 5.5 g/dl (6.4-8.2)
[2019-09-19 09:06] LABS: ALK PHOS 93 U/L (45-117); ANION GAP 10 MMOL/L (8-16); BILIRUBIN,TOTAL 0.4 mg/dL (0.2-1); BLOOD UREA NITROGEN 55.8 mg/dL (7-18); CALCIUM 7.5 mg/dL (8.5-10.1); CHLORIDE 93 mmol/L (98-107); CO2 26 mmol/L (21-32); CREATININE 2.3 mg/dL (0.55-1.3); SGOT/AST 34 U/L (15-37); SGPT/ALT 32 U/L (13-61); SODIUM 130 mmol/L (136-145); TOT PROT 5.5 g/dl (6.4-8.2)
[2019-09-19] MEDS ORDERED: INSULIN REGULAR HUMAN 100 UNITS/ML *VIAL IVPUSH ONE ×2 (09:06→14:15)
[2019-09-19] MEDS ORDERED: SODIUM POLYSTYRENE SULFONATE 15 GM/60 ML BOTTLE PO ONE (09:06)
[2019-09-19] MEDS ORDERED: CALCIUM GLUCONATE 10% - 1,000 MG/10 ML VIAL IVPUSH ONE ×2 (09:06→14:15)
[2019-09-19 09:07] LABS: PHOSPHOROUS > 9.0 mg/dL (2.5-4.9); POTASSIUM 6.3 mmol/L (3.5-5.1)
[2019-09-19] MEDS ORDERED: DEXTROSE 50%-WATER - 25 GM/50 ML VIAL IVPUSH ONE ×2 (09:07→14:15)
[2019-09-19 09:08] LABS: GLUCOSE,RANDOM 377 mg/dL (74-106)
[2019-09-19 09:08] LABS: PHOSPHOROUS > 9.0 mg/dL (2.5-4.9); POTASSIUM 6.3 mmol/L (3.5-5.1)
[2019-09-19] MEDS: glipiZIDE 5 MG TABLET (FP) PO SCH (09:22)
[2019-09-19] MEDS ORDERED: DEXTROSE 50%-WATER 25 GM/50 ML DISP.SYRIN ONE (09:26)
[2019-09-19] MEDS: dilTIAZem HCL 60 MG TABLET (FP) GT SCH ×4 (09:29→18:40)
[2019-09-19] MEDS: IPRATROPIUM BR 0.02% 0.5 MG/2.5 ML VIAL.NEB. NEB SCH ×4 (09:42→20:48)
[2019-09-19] MEDS: LEVALBUTEROL HCL 0.63 MG/3 ML VIAL.NEB. IH SCH ×3 (09:42→20:48)
[2019-09-19] MEDS ORDERED: TIOTROPIUM BROMIDE 2.5 MCG (SPIRIVA) RESPIMAT INHALER IH SCH (10:00)
[2019-09-19] MEDS: MUPIROCIN 2% TOPICAL OINTMENT FOR DECOLONIZATION NS SCH ×2 (10:11→22:18)
[2019-09-19] MEDS: BUDESONIDE/FORMETEROL FUMARATE 160/4.5 mcg INHALER IH SCH ×2 (10:12→22:30)
[2019-09-19] MEDS: OSELTAMIVIR PHOSPHATE 75 MG CAPSULE PO SCH ×2 (10:12→22:29)
[2019-09-19] MEDS: CHOLECALCIFEROL (VIT D3) 1,000 UNIT (25 MCG) TABLET PO SCH (10:12)
[2019-09-19] MEDS: APIXABAN 5 MG TABLET PO SCH ×2 (10:12→22:31)
[2019-09-19] MEDS: ROFLUMILAST 500 MCG TABLET PO SCH (10:43)
[2019-09-19] MEDS: CYANOCOBALAMIN 1,000 MCG TABLET (FP) PO SCH (10:43)
[2019-09-19] MEDS: FAMOTIDINE 40 MG/5 ML ORAL SUSPENSION NGT SCH (10:43)
[2019-09-19 10:48] LABS: ARTERIAL BLD GAS O2 SATURATION 98.2 % (95-98); ARTERIAL BLOOD GAS PO2 146 mmHg (80-100)
[2019-09-19 10:53] LABS: ALLENS TEST POSITIVE
[2019-09-19 10:56] LABS: ARTERIAL BLOOD GAS PCO2 73.5 mmHg (35-45); ARTERIAL BLOOD GAS pH 7.11 (7.35-7.45)
--- NOTE | 2019-09-19 11:19 | PN ---
Progress Note (short form) - Note Progress Note: Pt examined in ICU sent for respiratory failure now intubated and sedated High PEEP on pressors Vital Signs - 24 hr 09/18/19 09/18/19 09/18/19 12:00 14:00 16:00 Temperature 98.0 F 98.1 F 98.2 F Pulse Rate 91 H 90 95 H Respiratory 40 H 26 H Rate Blood Pressure 109/69 111/73 105/75 O2 Sat by Pulse Oximetry (%) 09/18/19 09/18/19 09/18/19 16:30 18:00 20:00 Temperature 98.1 F Pulse Rate 100 H 100 H Respiratory 40 H 36 H 36 H Rate Blood Pressure 74/53 L 78/52 L O2 Sat by Pulse Oximetry (%) 09/18/19 09/18/19 09/19/19 21:00 22:00 00:00 Temperature Pulse Rate 94 H 93 H 95 H Respiratory 35 H 35 H 33 H Rate Blood Pressure 80/51 L 77/47 L O2 Sat by Pulse 97 Oximetry (%) 09/19/19 09/19/19 09/19/19 00:15 01:00 01:59 Temperature Pulse Rate 85 86 Respiratory 36 H 36 H Rate Blood Pressure 77/44 L 91/51 L O2 Sat by Pulse 99 Oximetry (%) 09/19/19 09/19/19 09/19/19 02:00 04:00 05:00 Temperature 97.8 F Pulse Rate 83 77 Respiratory 36 H 36 H 36 H Rate Blood Pressure 87/52 L 106/58 L O2 Sat by Pulse Oximetry (%) 09/19/19 09/19/19 09/19/19 05:55 06:00 08:00 Temperature 97.4 F L Pulse Rate 70 78 79 Respiratory 36 H 36 H Rate Blood Pressure 91/53 L 91/53 L 102/59 L O2 Sat by Pulse 100 Oximetry (%) 09/19/19 09/19/19 09/19/19 08:35 09:20 10:00 Temperature 97.3 F L Pulse Rate 72 Respiratory 36 H 36 H 36 H Rate Blood Pressure 128/60 O2 Sat by Pulse 100 100 Oximetry (%) Current Medications Generic Name Dose Route Start Last Admin Trade Name Freq PRN Reason Stop Dose Admin Amitriptyline HCl 75 mg 09/18/19 22:00 09/18/19 23:08 Elavil - PO Not Given HS [facility] Apixaban 5 mg 09/18/19 22:00 09/19/19 10:12 Eliquis - PO 5 mg BID [facility] Administration Artificial Tears 1 drop 09/18/19 19:33 Artificial Tears OU BID PRN DRY EYES Atorvastatin Calcium 10 mg 09/18/19 22:00 09/18/19 21:34 Lipitor - PO 10 mg HS [facility] Administration Budesonide/Formoterol Fumarate 2 puff 09/18/19 22:00 09/19/19 10:12 Symbicort 160/4.5mcg - IH Not Given BID [facility] Chlorhexidine Gluconate 1 applic 09/18/19 22:00 09/18/19 21:33 Hibiclens For Decolonization - TP 1 applic HS [facility] Administration Cholecalciferol 2,000 unit 09/19/19 10:00 09/19/19 10:12 Vitamin D3 - PO 2,000 unit DAILY [facility] Administration Cyanocobalamin 1,000 mcg 09/19/19 10:00 09/19/19 10:43 Vitamin B12 - PO 1,000 mcg DAILY [facility] Administration Diltiazem HCl 60 mg 09/19/19 08:23 09/19/19 09:47 Cardizem - GT Not Given Q6HPO [facility] Diltiazem HCl 10 mg 09/19/19 08:22 Cardizem Injection - IVPUSH Q4H PRN TACHYCARDIA Diphenhydramine HCl 25 mg 09/18/19 19:33 Benadryl - PO TID PRN ALLERGIES Famotidine 20 mg 09/18/19 14:00 09/19/19 10:43 Pepcid NGT 20 mg DAILY [facility] Administration Gabapentin 400 mg 09/18/19 14:00 09/19/19 05:12 Neurontin Oral Liquid - GT 400 mg TID [facility] Administration Glipizide 2.5 mg 09/19/19 07:00 09/19/19 09:22 Glucotrol - PO 2.5 mg DAILY@0700 [facility] Administration Guaifenesin 10 ml 09/18/19 19:33 Robitussin - PO Q4H PRN COUGH Hydroxyzine Pamoate 100 mg 09/18/19 19:33 Vistaril - PO BID PRN itching Propofol 1,000,000 mcg in 100 mls @ 2.273 mls/hr 09/18/19 09:45 09/19/19 10: 14 Diprivan - IVPB 50 mcg/kg/min TITR [facility] 22.725 mls/hr Administration Protocol 5 MCG/KG/MIN Fentanyl 500 mcg/ Dextrose 100 mls @ 10 mls/hr 09/18/19 10:45 09/19/19 05:17 IVPB 150 mcg/hr TITR [facility] 30 mls/hr Administration 50 MCG/HR Midazolam HCl 100 mg in 100 mls @ 1 mls/hr 09/18/19 15:00 09/19/19 00:57 Midazolam 100mg/100ml-0.9%Nacl IVPB 09/19/19 14:59 10 mg/hr TITR [facility] 10 mls/hr Administration Protocol 1 MG/HR Vecuronium [place] 50 mg/ 250 mls @ 22.72 mls/hr 09/18/19 17:45 09/18/19 19: 09 Dextrose IVPB Not Given TITR [facility] 1 MCG/KG/MIN Cefepime HCl 2 gm/ Dextrose 100 mls @ 100 mls/hr 09/19/19 02:00 09/19/19 10: 43 IVPB 100 mls/hr Q8H-IV [facility] Administration Protocol Norepinephrine Bitartrate 4, 500 mls @ 37.5 mls/hr 09/18/19 23:00 09/19/19 05 :55 000 mcg/ Dextrose IV 5 mcg/min TITR [facility] 37.5 mls/hr Titration Protocol 5 MCG/MIN Insulin Detemir 5 units 09/18/19 22:00 09/18/19 22:08 Levemir Vial SQ 5 units HS [facility] Administration Ipratropium [place] 1 amp 09/18/19 16:00 09/19/19 09:42 Atrovent 0.02% Nebulizer - NEB 1 amp RQID [facility] Administration Levalbuterol HCl 0.31 mg 09/18/19 19:33 Xopenex IH Q8H PRN ASTHMA Levalbuterol HCl 0.63 mg 09/18/19 20:00 09/19/19 09:42 Xopenex IH 0.63 mg RTID [facility] Administration Methylprednisolone Sodium Succinate 60 mg 09/18/19 21:00 09/19/19 09:29 Solu-Medrol - IVPUSH 60 mg Q6H-IV [facility] Administration Mupirocin 1 applic 09/18/19 19:33 09/19/19 10:11 Bactroban Ointment (For Decolonization) - NS 09/23/19 19:32 1 applic BID [facility] Administration Non-Formulary Medication 1 drop 09/18/19 19:33 Cyclosporine [Restasis] OU ASDIR [facility] Nystatin 500,000 units 09/19/19 00:00 09/19/19 05:12 Nystatin Oral Suspension - PO 500,000 units Q6HPO [facility] Administration Oseltamivir Phosphate 75 mg 09/18/19 22:00 09/19/19 10:12 Tamiflu - PO 09/22/19 15:59 75 mg BID [facility] Administration Roflumilast 500 mcg 09/19/19 10:00 09/19/19 10:43 Daliresp PO 500 mcg DAILY [facility] Administration Tiotropium [place] 2 puff 09/19/19 10:00 Spiriva Respimat IH DAILY [facility] Laboratory Results - last 24 hr 09/18/19 09/18/19 09/18/19 06:52 12:30 15:10 WBC RBC Hgb Hct MCV MCH MCHC RDW Plt Count MPV Absolute Neuts (auto) Neutrophils % Neutrophils % (Manual) 89.5 H Band Neutrophils % 6.3 Lymphocytes % Lymphocytes % (Manual) 2.1 L D Monocytes % Monocytes % (Manual) 1 L Eosinophils % Eosinophils % (Manual) 0.0 Basophils % Basophils % (Manual) 0.0 Myelocytes % (Man) 0 Promyelocytes % (Man) 0 Blast Cells % (Manual) 0 Nucleated RBC % 0 Metamyelocytes 0 Hypochromia 0 Platelet Estimate Normal Polychromasia 1+ Poikilocytosis 1+ Anisocytosis 1+ Microcytosis 1+ Macrocytosis 0 Tear Drop Cells 1+ Ovalocytes 1+ Mark Cells 1+ Anticoagulation Therapy No Result Required. Puncture Site Left radial ABG pH 7.37 ABG pCO2 at Pt Temp 54.4 H ABG pO2 at Pt Temp 95.6 ABG HCO3 30.5 H ABG O2 Sat (Measured) 95.8 ABG O2 Content 13.9 ABG Base Excess 4.7 H Foreign Test Positive O2 Delivery Device No Result Required. Oxygen Flow Rate Yes Vent Mode No Result Required. Vent Rate No Result Required. Mechanical Rate No Result Required. Pressure Support Vent No Result Required. Sodium Potassium Chloride Carbon Dioxide Anion Gap BUN Creatinine Est GFR (CKD-EPI)AfAm Est GFR (CKD-EPI)NonAf POC Glucometer Random Glucose Calcium Phosphorus Magnesium Total Bilirubin AST ALT Alkaline Phosphatase Total Protein Albumin Vancomycin Pre-Dose 6.0 L 09/18/19 09/19/19 09/19/19 22:04 05:47 05:47 WBC 19.1 H RBC 3.93 Hgb 8.8 L Hct 30.6 L MCV 77.7 L MCH 22.3 L MCHC 28.7 L RDW 19.3 H Plt Count 292 MPV 7.8 Absolute Neuts (auto) 18.3 H Neutrophils % 95.8 H Neutrophils % (Manual) Band Neutrophils % Lymphocytes % 1.3 L Lymphocytes % (Manual) Monocytes % 2.9 L Monocytes % (Manual) Eosinophils % 0.0 Eosinophils % (Manual) Basophils % 0.0 Basophils % (Manual) Myelocytes % (Man) Promyelocytes % (Man) Blast Cells % (Manual) Nucleated RBC % 0 Metamyelocytes Hypochromia Platelet Estimate Polychromasia Poikilocytosis Anisocytosis Microcytosis Macrocytosis Tear Drop Cells Ovalocytes Mark Cells Anticoagulation Therapy Puncture Site ABG pH ABG pCO2 at Pt Temp ABG pO2 at Pt Temp ABG HCO3 ABG O2 Sat (Measured) ABG O2 Content ABG Base Excess Foreign Test O2 Delivery Device Oxygen Flow Rate Vent Mode Vent Rate Mechanical Rate Pressure Support Vent Sodium 130 L Potassium 6.3 H* Chloride 93 L Carbon Dioxide 26 Anion Gap 10 BUN 55.8 H Creatinine 2.3 H Est GFR (CKD-EPI)AfAm 26.09 Est GFR (CKD-EPI)NonAf 22.51 POC Glucometer 225 Random Glucose 377 H Calcium 7.5 L Phosphorus > 9.0 H* Magnesium 3.0 H Total Bilirubin 0.4 AST 34 ALT 32 Alkaline Phosphatase 93 Total Protein 5.5 L Albumin 2.0 L Vancomycin Pre-Dose 09/19/19 09/19/19 09/19/19 07:45 07:45 10:15 WBC 20.5 H RBC 3.98 Hgb 8.8 L Hct 31.2 L MCV 78.4 L MCH 22.0 L MCHC 28.1 L RDW 18.7 H Plt Count 290 MPV 7.4 L Absolute Neuts (auto) 19.6 H Neutrophils % 95.5 H Neutrophils % (Manual) Band Neutrophils % Lymphocytes % 1.6 L D Lymphocytes % (Manual) Monocytes % 2.5 L Monocytes % (Manual) Eosinophils % 0.1 D Eosinophils % (Manual) Basophils % 0.3 D Basophils % (Manual) Myelocytes % (Man) Promyelocytes % (Man) Blast Cells % (Manual) Nucleated RBC % 0 Metamyelocytes Hypochromia Platelet Estimate Polychromasia Poikilocytosis Anisocytosis Microcytosis Macrocytosis Tear Drop Cells Ovalocytes Mark Cells Anticoagulation Therapy No Result Required. Puncture Site Right radial ABG pH 7.11 L* ABG pCO2 at Pt Temp 73.5 H* ABG pO2 at Pt Temp 146 H ABG HCO3 22.4 ABG O2 Sat (Measured) 98.2 H ABG O2 Content 11.7 ABG Base Excess -7.0 L Foreign Test Positive O2 Delivery Device No Result Required. Oxygen Flow Rate Yes Vent Mode No Result Required. Vent Rate No Result Required. Mechanical Rate No Result Required. Pressure Support Vent No Result Required. Sodium 129 L Potassium 6.3 H* Chloride 92 L Carbon Dioxide 24 Anion Gap 13 BUN 57.2 H Creatinine 2.4 H Est GFR (CKD-EPI)AfAm 24.78 Est GFR (CKD-EPI)NonAf 21.38 POC Glucometer Random Glucose 347 H Calcium 7.3 L Phosphorus > 9.0 H* Magnesium 3.4 H Total Bilirubin 0.4 AST 40 H ALT 32 Alkaline Phosphatase 92 Total Protein 5.5 L Albumin 2.0 L Vancomycin Pre-Dose Microbiology 09/17/19 18:45 Gram Stain - Final Sputum - Expectorated Sputum Culture - Preliminary NORMAL RESPIRATORY MONA 09/17/19 14:08 Blood Culture - Preliminary Blood - Peripheral Venous Alpha Hemolytic Streptococcus 09/18/19 13:30 Legionella Antigen - Final Urine For Antigen Detection Streptococcus pneumoniae Antigen (M - Final 09/17/19 14:14 Blood Culture - Preliminary Blood - Peripheral Venous NO GROWTH OBTAINED AFTER 24 HOURS, INCUBATION TO CONTINUE FOR 4 DAYS. 09/17/19 14:14 Mycoplasma Antibody - Preliminary Serum Intake & Output 09/16/19 09/17/19 09/18/19 09/19/19 23:59 23:59 23:59 23:59 Intake Total 1460 1220 1253 899 Output Total 900 100 Balance 1460 1220 353 799 sedated intubated S1 s2 RRR Lungs ronchi and crackles++ Abd- soft, NT edema+ coleman+ PLAN COPD exacerbation renal failure bacteremic Influenza Pneumonia acute hypoxic respiratory failure Diabetes -- renal eval -- decreased urine out put -- high peep on vent settings, with high Rate --Remains critically ill -- vent setting per ICU -- Nebs standing -- Iv antibiotics -- medrol -- Tamiflu -- iv antibiotics Problem List - Problems (1) Shortness of breath Code(s): R06.02 - SHORTNESS OF BREATH (2) Acute and chronic respiratory failure with hypoxia Code(s): J96.21 - ACUTE AND CHRONIC RESPIRATORY FAILURE WITH HYPOXIA (3) Acute exacerbation of chronic obstructive pulmonary disease (COPD) Code(s): J44.1 - CHRONIC OBSTRUCTIVE PULMONARY DISEASE W (ACUTE) EXACERBATION (4) Anxiety Code(s): F41.9 - ANXIETY DISORDER, UNSPECIFIED (5) Diabetes mellitus Code(s): E11.9 - TYPE 2 DIABETES MELLITUS WITHOUT COMPLICATIONS
[2019-09-19 11:52] LABS: ANISOCYTOSIS 1+; MACROCYTOSIS 0; OVALOCYTE 1+; PLATELET ESTIMATE NORMAL
[2019-09-19 12:06] LABS: ANISOCYTOSIS 1+; MACROCYTOSIS 0; OVALOCYTE 1+; PLATELET ESTIMATE NORMAL; TEAR DROP CELLS 1+
--- NOTE | 2019-09-19 12:28 | PN ---
Teaching Attending Note Name of Resident: Leatha Brunson ATTENDING PHYSICIAN STATEMENT I saw and evaluated the patient. I reviewed the resident's note and discussed the case with the resident. I agree with the resident's findings and plan as documented. SUBJECTIVE: Patient seen and examined in the ICU. Remains intubated and sedated on lung protective ventilation. Pplat: 29 100% FiO2 and PEEP 20. NE @ 5 mcq for hemodynamic support. Intake & Output 09/16/19 09/17/19 09/18/19 09/19/19 23:59 23:59 23:59 23:59 Intake Total 1460 1220 1253 899 Output Total 900 100 Balance 1460 1220 353 799 Last Vital Signs Temp Pulse Resp BP Pulse Ox 97.3 F L 80 36 H 101/55 L 100 09/19/19 12:00 09/19/19 12:00 09/19/19 12:00 09/19/19 12:00 09/19/19 09:20 Active Medications Amitriptyline HCl (Elavil -) 75 mg PO [facility] Last Admin: 09/18/19 23:08 Dose: Not Given Apixaban (Eliquis -) 5 mg PO BID [facility] Last Admin: 09/19/19 10:12 Dose: 5 mg Artificial Tears (Artificial Tears) 1 drop OU BID PRN PRN Reason: DRY EYES Atorvastatin Calcium (Lipitor -) 10 mg PO [facility] Last Admin: 09/18/19 21:34 Dose: 10 mg Budesonide/Formoterol Fumarate (Symbicort 160/4.5mcg -) 2 puff IH BID [facility] Last Admin: 09/19/19 10:12 Dose: Not Given Chlorhexidine Gluconate (Hibiclens For Decolonization -) 1 applic TP [facility] Last Admin: 09/18/19 21:33 Dose: 1 applic Cholecalciferol (Vitamin D3 -) 2,000 unit PO DAILY [facility] Last Admin: 09/19/19 10:12 Dose: 2,000 unit Cyanocobalamin (Vitamin B12 -) 1,000 mcg PO DAILY [facility] Last Admin: 09/19/19 10:43 Dose: 1,000 mcg Diltiazem HCl (Cardizem -) 60 mg GT Q6HPO [facility] Last Admin: 09/19/19 09:47 Dose: Not Given Diltiazem HCl (Cardizem Injection -) 10 mg IVPUSH Q4H PRN PRN Reason: TACHYCARDIA Diphenhydramine HCl (Benadryl -) 25 mg PO TID PRN PRN Reason: ALLERGIES Famotidine (Pepcid) 20 mg NGT DAILY [facility] Last Admin: 09/19/19 10:43 Dose: 20 mg Gabapentin (Neurontin Oral Liquid -) 400 mg GT TID [facility] Last Admin: 09/19/19 05:12 Dose: 400 mg Glipizide (Glucotrol -) 2.5 mg PO DAILY@0700 [facility] Last Admin: 09/19/19 09:22 Dose: 2.5 mg Guaifenesin (Robitussin -) 10 ml PO Q4H PRN PRN Reason: COUGH Hydroxyzine Pamoate (Vistaril -) 100 mg PO BID PRN PRN Reason: itching Propofol (Diprivan -) 1,000,000 mcg in 100 mls @ 2.273 mls/hr IVPB TITR [facility]; Protocol Last Admin: 09/19/19 10:14 Dose: 50 mcg/kg/min, 22.725 mls/hr Fentanyl 500 mcg/ Dextrose 100 mls @ 10 mls/hr IVPB TITR [facility] Last Admin: 09/19/19 11:29 Dose: 150 mcg/hr, 30 mls/hr Midazolam HCl (Midazolam 100mg/100ml-0.9%Nacl) 100 mg in 100 mls @ 1 mls/hr IVPB TITR [facility]; Protocol Stop: 09/19/19 14:59 Last Admin: 09/19/19 00:57 Dose: 10 mg/hr, 10 mls/hr Vecuronium [place] 50 mg/ (Dextrose) 250 mls @ 22.72 mls/hr IVPB TITR [facility] Last Admin: 09/18/19 19:09 Dose: Not Given Cefepime HCl 2 gm/ Dextrose 100 mls @ 100 mls/hr IVPB Q8H-IV [facility]; Protocol Last Admin: 09/19/19 10:43 Dose: 100 mls/hr Norepinephrine Bitartrate 4, (000 mcg/ Dextrose) 500 mls @ 37.5 mls/hr IV TITR [facility]; Protocol Last Titration: 09/19/19 05:55 Dose: 5 mcg/min, 37.5 mls/hr Insulin Detemir (Levemir Vial) 5 units SQ HS [facility] Last Admin: 09/18/19 22:08 Dose: 5 units Ipratropium [place] (Atrovent 0.02% Nebulizer -) 1 amp NEB RQID [facility] Last Admin: 09/19/19 09:42 Dose: 1 amp Levalbuterol HCl (Xopenex) 0.31 mg IH Q8H PRN PRN Reason: ASTHMA Levalbuterol HCl (Xopenex) 0.63 mg IH RTID [facility] Last Admin: 09/19/19 09:42 Dose: 0.63 mg Methylprednisolone Sodium Succinate (Solu-Medrol -) 60 mg IVPUSH Q6H-IV [facility] Last Admin: 09/19/19 09:29 Dose: 60 mg Mupirocin (Bactroban Ointment (For Decolonization) -) 1 applic NS BID [facility] Stop: 09/23/19 19:32 Last Admin: 09/19/19 10:11 Dose: 1 applic Non-Formulary Medication (Cyclosporine [Restasis]) 1 drop OU ASDIR [facility] Nystatin (Nystatin Oral Suspension -) 500,000 units PO Q6HPO [facility] Last Admin: 09/19/19 05:12 Dose: 500,000 units Oseltamivir Phosphate (Tamiflu -) 75 mg PO BID [facility] Stop: 09/22/19 15:59 Last Admin: 09/19/19 10:12 Dose: 75 mg Roflumilast (Daliresp) 500 mcg PO DAILY [facility] Last Admin: 09/19/19 10:43 Dose: 500 mcg Tiotropium [place] (Spiriva Respimat) 2 puff IH DAILY [facility] Gen: Intubated and sedated Heart: RRR Lung: Vented, bilateral rhonchi and diffuse expiratory wheezing Abd: soft, nontender Ext: no edema Laboratory Results - last 24 hr 09/18/19 09/18/19 09/18/19 12:30 15:10 22:04 WBC RBC Hgb Hct MCV MCH MCHC RDW Plt Count MPV Absolute Neuts (auto) Neutrophils % Neutrophils % (Manual) Band Neutrophils % Lymphocytes % Lymphocytes % (Manual) Monocytes % Monocytes % (Manual) Eosinophils % Eosinophils % (Manual) Basophils % Basophils % (Manual) Myelocytes % (Man) Promyelocytes % (Man) Blast Cells % (Manual) Nucleated RBC % Metamyelocytes Hypochromia Platelet Estimate Platelet Comment Polychromasia Poikilocytosis Anisocytosis Microcytosis Macrocytosis Spherocytes Tear Drop Cells Ovalocytes [place] Cells Schistocytes Anticoagulation Therapy No Result Required. Puncture Site Left radial ABG pH 7.37 ABG pCO2 at Pt Temp 54.4 H ABG pO2 at Pt Temp 95.6 ABG HCO3 30.5 H ABG O2 Sat (Measured) 95.8 ABG O2 Content 13.9 ABG Base Excess 4.7 H Foreign Test Positive O2 Delivery Device No Result Required. Oxygen Flow Rate Yes Vent Mode No Result Required. Vent Rate No Result Required. Mechanical Rate No Result Required. Pressure Support Vent No Result Required. Sodium Potassium Chloride Carbon Dioxide Anion Gap BUN Creatinine Est GFR (CKD-EPI)AfAm Est GFR (CKD-EPI)NonAf POC Glucometer 225 Random Glucose Calcium Phosphorus Magnesium Total Bilirubin AST ALT Alkaline Phosphatase Total Protein Albumin Vancomycin Pre-Dose 6.0 L 09/19/19 09/19/19 09/19/19 05:47 05:47 07:45 WBC 19.1 H 20.5 H RBC 3.93 3.98 Hgb 8.8 L 8.8 L Hct 30.6 L 31.2 L MCV 77.7 L 78.4 L MCH 22.3 L 22.0 L MCHC 28.7 L 28.1 L RDW 19.3 H 18.7 H Plt Count 292 290 MPV 7.8 7.4 L Absolute Neuts (auto) 18.3 H 19.6 H Neutrophils % 95.8 H 95.5 H Neutrophils % (Manual) 90.7 H 90.8 H Band Neutrophils % 7.5 7.2 Lymphocytes % 1.3 L 1.6 L D Lymphocytes % (Manual) 0.9 L 0.0 L Monocytes % 2.9 L 2.5 L Monocytes % (Manual) 0 L D 0 L Eosinophils % 0.0 0.1 D Eosinophils % (Manual) 0.9 D 0.0 Basophils % 0.0 0.3 D Basophils % (Manual) 0.0 0.0 Myelocytes % (Man) 0 0 Promyelocytes % (Man) 0 0 Blast Cells % (Manual) 0 0 Nucleated RBC % 0 1 H Metamyelocytes 0 0 Hypochromia 0 0 Platelet Estimate Normal Normal Platelet Comment Present Polychromasia 1+ 1+ Poikilocytosis 2+ 2+ Anisocytosis 1+ 1+ Microcytosis 1+ 1+ Macrocytosis 0 0 Spherocytes 1+ 1+ Tear Drop Cells 1+ Ovalocytes 1+ 1+ [place] Cells 2+ Schistocytes 1+ Anticoagulation Therapy Puncture Site ABG pH ABG pCO2 at Pt Temp ABG pO2 at Pt Temp ABG HCO3 ABG O2 Sat (Measured) ABG O2 Content ABG Base Excess Foreign Test O2 Delivery Device Oxygen Flow Rate Vent Mode Vent Rate Mechanical Rate Pressure Support Vent Sodium 130 L Potassium 6.3 H* Chloride 93 L Carbon Dioxide 26 Anion Gap 10 BUN 55.8 H Creatinine 2.3 H Est GFR (CKD-EPI)AfAm 26.09 Est GFR (CKD-EPI)NonAf 22.51 POC Glucometer Random Glucose 377 H Calcium 7.5 L Phosphorus > 9.0 H* Magnesium 3.0 H Total Bilirubin 0.4 AST 34 ALT 32 Alkaline Phosphatase 93 Total Protein 5.5 L Albumin 2.0 L Vancomycin Pre-Dose 09/19/19 09/19/19 07:45 10:15 WBC RBC Hgb Hct MCV MCH MCHC RDW Plt Count MPV Absolute Neuts (auto) Neutrophils % Neutrophils % (Manual) Band Neutrophils % Lymphocytes % Lymphocytes % (Manual) Monocytes % Monocytes % (Manual) Eosinophils % Eosinophils % (Manual) Basophils % Basophils % (Manual) Myelocytes % (Man) Promyelocytes % (Man) Blast Cells % (Manual) Nucleated RBC % Metamyelocytes Hypochromia Platelet Estimate Platelet Comment Polychromasia Poikilocytosis Anisocytosis Microcytosis Macrocytosis Spherocytes Tear Drop Cells Ovalocytes [place] Cells Schistocytes Anticoagulation Therapy No Result Required. Puncture Site Right radial ABG pH 7.11 L* ABG pCO2 at Pt Temp 73.5 H* ABG pO2 at Pt Temp 146 H ABG HCO3 22.4 ABG O2 Sat (Measured) 98.2 H ABG O2 Content 11.7 ABG Base Excess -7.0 L Foreign Test Positive O2 Delivery Device No Result Required. Oxygen Flow Rate Yes Vent Mode No Result Required. Vent Rate No Result Required. Mechanical Rate No Result Required. Pressure Support Vent No Result Required. Sodium 129 L Potassium 6.3 H* Chloride 92 L Carbon Dioxide 24 Anion Gap 13 BUN 57.2 H Creatinine 2.4 H Est GFR (CKD-EPI)AfAm 24.78 Est GFR (CKD-EPI)NonAf 21.38 POC Glucometer Random Glucose 347 H Calcium 7.3 L Phosphorus > 9.0 H* Magnesium 3.4 H Total Bilirubin 0.4 AST 40 H ALT 32 Alkaline Phosphatase 92 Total Protein 5.5 L Albumin 2.0 L Vancomycin Pre-Dose A/P Acute Respiratory Failure R/O early ARDS Acute COPD Exacerbation Pneumonia Atrial Fibrillation h/o CVA HTN DM Hyperlipidemia Influenza A Septic Shock - Pressors to maintain MAP - Lung protective ventilation - Follow ABG - IV Medrol - inhaled bronchodilators standing and PRN - ABX per ID - Tamiflu BID - rate control - continue anticoagulation - glucose control while on systemic steroids - Requires ICU monitoring for mechanical ventilation Dr Fang Critical care time spent in reviewing chart, evaluating patient and formulating plan - 36 minutes.
[2019-09-19 13:46] LABS: BLOOD UREA NITROGEN 61.1 mg/dL (7-18); CALCIUM 7.4 mg/dL (8.5-10.1); CREATININE 2.8 mg/dL (0.55-1.3)
[2019-09-19 13:49] LABS: POTASSIUM 6.3 mmol/L (3.5-5.1)
--- NOTE | 2019-09-19 13:58 | PN ---
Progress Note (short form) - Note Progress Note: remains intubated and sedated now on levophed on fiO2 100%/20 of peep Vital Signs Period Temp Pulse Resp BP Sys/Jordan Pulse Ox Last 24 Hr 97.3 F-98.2 F 70-100 26-40 74-128/44-75 96-100 cor-rrr lungs decreased bs at bases abd soft,nt ext +edema CBC, BMP 09/19/19 07:45 09/19/19 12:30 Microbiology 09/17/19 18:45 Sputum - Expectorated Gram Stain - Final 09/17/19 18:45 Sputum - Expectorated Sputum Culture - Preliminary NORMAL RESPIRATORY MONA 09/17/19 14:08 Blood - Peripheral Venous Blood Culture - Preliminary Alpha Hemolytic Streptococcus 09/18/19 13:30 Urine For Antigen Detection Legionella Antigen - Final 09/18/19 13:30 Urine For Antigen Detection Streptococcus pneumoniae Antigen (M - Final 09/17/19 14:14 Blood - Peripheral Venous Blood Culture - Preliminary NO GROWTH OBTAINED AFTER 24 HOURS, INCUBATION TO CONTINUE FOR 4 DAYS. 09/17/19 14:14 Serum Mycoplasma Antibody - Preliminary inflluenza A POSITIVE Microbiology 09/17/19 18:45 Sputum - Expectorated Gram Stain - Final 09/17/19 18:45 Sputum - Expectorated Sputum Culture - Preliminary NORMAL RESPIRATORY MONA 09/17/19 14:08 Blood - Peripheral Venous Blood Culture - Preliminary Alpha Hemolytic Streptococcus 09/18/19 13:30 Urine For Antigen Detection Legionella Antigen - Final 09/18/19 13:30 Urine For Antigen Detection Streptococcus pneumoniae Antigen (M - Final 09/17/19 14:14 Blood - Peripheral Venous Blood Culture - Preliminary NO GROWTH OBTAINED AFTER 24 HOURS, INCUBATION TO CONTINUE FOR 4 DAYS. 09/17/19 14:14 Serum Mycoplasma Antibody - Preliminary imp/reccd- Respiratory failure/Intubated-hypoxemic respiratory failure hypotensive now on levophed Influenza A -continue tamiflu bacteremia- alpha strep, repeat blood cultures pending vanco/cefepime tamiflu urinary antigens-straight cath -negative acute renal failure with hyperkalemia will redose antibiotics for DANIEL-hold vancomycin, check level in am renal consult history of MRSA copd pen/sulfa allergies overall prognosis guarded d/w Housing Inspectors over 35 minutes spent in the care of this ICU patient Problem List - Problems (1) Pneumonia Code(s): J18.9 - PNEUMONIA, UNSPECIFIED ORGANISM Qualifiers: Pneumonia type: due to unspecified organism Laterality: left Lung location: lower lobe of lung Qualified Code(s): J18.9 - Pneumonia, unspecified organism (2) COPD exacerbation Code(s): J44.1 - CHRONIC OBSTRUCTIVE PULMONARY DISEASE W (ACUTE) EXACERBATION (3) MRSA (methicillin resistant Staphylococcus aureus) colonization Code(s): Z22.322 - CARRIER OR SUSPECTED CARRIER OF METHICILLIN RESIS STAPH (4) Allergy to multiple antibiotics Code(s): Z88.1 - ALLERGY STATUS TO OTHER ANTIBIOTIC AGENTS STATUS
[2019-09-19] MEDS ORDERED: VANCOMYCIN 1,250 MG in DEXTROSE 5%-WATER - 250 ML IVPB SCH (14:00)
[2019-09-19] MEDS ORDERED: SODIUM POLYSTYRENE SULFONATE 15 GM/60 ML BOTTLE GT ONE (14:15)
[2019-09-19] MEDS ORDERED: DEXTROSE 50%-WATER - 25 GM/50 ML VIAL ONE (14:20)
[2019-09-19 14:30] LABS: ARTERIAL BLD GAS O2 SATURATION 98.4 % (95-98); ARTERIAL BLOOD GAS BASE EXCESS -7.2 meq/l (-2-2); ARTERIAL BLOOD GAS PCO2 78.9 mmHg (35-45); ARTERIAL BLOOD GAS PO2 159 mmHg (80-100); ARTERIAL BLOOD GAS pH 7.09 (7.35-7.45)
[2019-09-19 14:34] LABS: ALLENS TEST POSITIVE
--- NOTE | 2019-09-19 14:49 | PN ---
Physical Exam: SUBJECTIVE: Patient seen and examined. Remains intubated, sedated. TV incr to 350 from 300. OBJECTIVE: Vital Signs Period Temp Pulse Resp BP Sys/Jordan Pulse Ox Last 24 Hr 97.3 F-98.2 F 70-100 26-40 74-128/44-75 96-100 GENERAL: intubated & sedated HEENT: ET tube, OGT in place. LUNGS: diminished breath sounds # bases. mild crackles upper lung currie. HEART: Regular rate and rhythm, normal S1 and S2 without murmur, rub or gallop. ABDOMEN: Soft NTND +BS EXTREMITIES: 2+ pulses, warm, well-perfused SKIN: dry skin on scalp Laboratory Results - last 24 hr Laboratory Last Values WBC 20.5 K/mm3 (4.0-10.0) H 09/19/19 07:45 RBC 3.98 M/mm3 (3.60-5.2) 09/19/19 07:45 Hgb 8.8 GM/dL (10.7-15.3) L 09/19/19 07:45 Hct 31.2 % (32.4-45.2) L 09/19/19 07:45 MCV 78.4 fl (80-96) L 09/19/19 07:45 MCH 22.0 pg (25.7-33.7) L 09/19/19 07:45 MCHC 28.1 g/dl (32.0-36.0) L 09/19/19 07:45 RDW 18.7 % (11.6-15.6) H 09/19/19 07:45 Plt Count 290 K/MM3 (134-434) 09/19/19 07:45 MPV 7.4 fl (7.5-11.1) L 09/19/19 07:45 Absolute Neuts (auto) 19.6 K/mm3 (1.5-8.0) H 09/19/19 07:45 Total Counted 100 09/14/19 06:40 Neutrophils % 95.5 % (42.8-82.8) H 09/19/19 07:45 Neutrophils % (Manual) 90.8 % (42.8-82.8) H 09/19/19 07:45 Band Neutrophils % 7.2 % 09/19/19 07:45 Lymphocytes % 1.6 % (8-40) L D 09/19/19 07:45 Lymphocytes % (Manual) 0.0 % (8-40) L 09/19/19 07:45 Monocytes % 2.5 % (3.8-10.2) L 09/19/19 07:45 Monocytes % (Manual) 0 % (3.8-10.2) L 09/19/19 07:45 Eosinophils % 0.1 % (0-4.5) D 09/19/19 07:45 Eosinophils % (Manual) 0.0 % (0-4.5) 09/19/19 07:45 Basophils % 0.3 % (0-2.0) D 09/19/19 07:45 Basophils % (Manual) 0.0 % (0-2.0) 09/19/19 07:45 Myelocytes % (Man) 0 % (0-2) 09/19/19 07:45 Promyelocytes % (Man) 0 % (0-2) 09/19/19 07:45 Blast Cells % (Manual) 0 % (0-0) 09/19/19 07:45 Nucleated RBC % 1 % (0-0) H 09/19/19 07:45 Metamyelocytes 0 % (0-2) 09/19/19 07:45 Hypochromia 0 09/19/19 07:45 Platelet Estimate Normal 09/19/19 07:45 Platelet Comment Present 09/19/19 07:45 Polychromasia 1+ 09/19/19 07:45 Poikilocytosis 2+ 09/19/19 07:45 Anisocytosis 1+ 09/19/19 07:45 Microcytosis 1+ 09/19/19 07:45 Macrocytosis 0 09/19/19 07:45 Spherocytes 1+ 09/19/19 07:45 Tear Drop Cells 1+ 09/19/19 07:45 Ovalocytes 1+ 09/19/19 07:45 [place] Cells 2+ 09/19/19 07:45 Acanthocytes (Spur) 1+ 09/15/19 06:35 Schistocytes 1+ 09/19/19 07:45 PT with INR 12.90 SEC (9.7-13.0) 09/13/19 18:35 INR 1.09 (0.83-1.09) 09/13/19 18:35 PTT (Actin FS) 23.3 SECONDS (25.2-36.5) L 09/13/19 18:35 Anticoagulation Therapy No Result Required. 09/19/19 13:55 Puncture Site Right radial 09/19/19 13:55 ABG pH 7.09 (7.35-7.45) L* 09/19/19 13:55 ABG pCO2 at Pt Temp 78.9 mmHg (35-45) H* 09/19/19 13:55 ABG pO2 at Pt Temp 159 mmHg (80-100) H 09/19/19 13:55 ABG HCO3 22.9 mmol/L (22-27) 09/19/19 13:55 ABG O2 Sat (Measured) 98.4 % (95-98) H 09/19/19 13:55 ABG O2 Content 12.2 % vol 09/19/19 13:55 ABG Base Excess -7.2 meq/l (-2-2) L 09/19/19 13:55 Foreign Test Positive 09/19/19 13:55 O2 Delivery Device No Result Required. 09/19/19 13:55 Oxygen Flow Rate 100 09/19/19 13:55 Vent Mode No Result Required. 09/19/19 13:55 Vent Rate 36 09/19/19 13:55 Mechanical Rate No Result Required. 09/19/19 13:55 Pressure Support Vent No Result Required. 09/19/19 13:55 Sodium 128 mmol/L (136-145) L 09/19/19 12:30 Potassium 6.3 mmol/L (3.5-5.1) H* 09/19/19 12:30 Chloride 93 mmol/L (98-107) L 09/19/19 12:30 Carbon Dioxide 23 mmol/L (21-32) 09/19/19 12:30 Anion Gap 12 MMOL/L (8-16) 09/19/19 12:30 BUN 61.1 mg/dL (7-18) H 09/19/19 12:30 Creatinine 2.8 mg/dL (0.55-1.3) H 09/19/19 12:30 Est GFR (CKD-EPI)AfAm 20.57 09/19/19 12:30 Est GFR (CKD-EPI)NonAf 17.75 01/30/20 12:30 POC Glucometer 225 UNITS (80-120) 09/18/19 22:04 Random Glucose 287 mg/dL (74-106) H 09/19/19 12:30 Hemoglobin A1c % 6.7 % (4.2-6.3) H 09/15/19 06:35 Calcium 7.4 mg/dL (8.5-10.1) L 09/19/19 12:30 Phosphorus > 9.0 mg/dL (2.5-4.9) H* 09/19/19 07:45 Magnesium 3.4 mg/dL (1.8-2.4) H 09/19/19 07:45 Total Bilirubin 0.4 mg/dL (0.2-1) 09/19/19 07:45 AST 40 U/L (15-37) H 09/19/19 07:45 ALT 32 U/L (13-61) 09/19/19 07:45 Alkaline Phosphatase 92 U/L (45-117) 09/19/19 07:45 Creatine Kinase 36 U/L (26-192) 09/13/19 18:35 Troponin I < 0.02 ng/ml (0.00-0.05) 09/13/19 18:35 Total Protein 5.5 g/dl (6.4-8.2) L 09/19/19 07:45 Albumin 2.0 g/dl (3.4-5.0) L 09/19/19 07:45 TSH 0.02 uIU/ml (0.358-3.74) L 09/15/19 06:35 Vancomycin Pre-Dose 6.0 ug/ml (18-26) L 09/18/19 15:10 Influenza A (Rapid) Positive (Negative) A 09/17/19 13:50 Influenza B (Rapid) Negative (Negative) 09/17/19 13:50 Active Medications Current Medications Amitriptyline HCl (Elavil -) 75 mg PO HS [facility] Last Admin: 09/18/19 23:08 Dose: Not Given Apixaban (Eliquis -) 5 mg PO BID [facility] Last Admin: 09/19/19 10:12 Dose: 5 mg Artificial Tears (Artificial Tears) 1 drop OU BID PRN PRN Reason: DRY EYES Atorvastatin Calcium (Lipitor -) 10 mg PO HS [facility] Last Admin: 09/18/19 21:34 Dose: 10 mg Budesonide/Formoterol Fumarate (Symbicort 160/4.5mcg -) 2 puff IH BID [facility] Last Admin: 09/19/19 10:12 Dose: Not Given Chlorhexidine Gluconate (Hibiclens For Decolonization -) 1 applic TP HS [facility] Last Admin: 09/18/19 21:33 Dose: 1 applic Cholecalciferol (Vitamin D3 -) 2,000 unit PO DAILY [facility] Last Admin: 09/19/19 10:12 Dose: 2,000 unit Cyanocobalamin (Vitamin B12 -) 1,000 mcg PO DAILY [facility] Last Admin: 09/19/19 10:43 Dose: 1,000 mcg Diltiazem HCl (Cardizem -) 60 mg GT Q6HPO [facility] Last Admin: 09/19/19 13:11 Dose: Not Given Diltiazem HCl (Cardizem Injection -) 10 mg IVPUSH Q4H PRN PRN Reason: TACHYCARDIA Diphenhydramine HCl (Benadryl -) 25 mg PO TID PRN PRN Reason: ALLERGIES Famotidine (Pepcid) 20 mg NGT DAILY [facility] Last Admin: 09/19/19 10:43 Dose: 20 mg Gabapentin (Neurontin Oral Liquid -) 400 mg GT TID [facility] Last Admin: 09/19/19 05:12 Dose: 400 mg Glipizide (Glucotrol -) 2.5 mg PO DAILY@0700 [facility] Last Admin: 09/19/19 09:22 Dose: 2.5 mg Guaifenesin (Robitussin -) 10 ml PO Q4H PRN PRN Reason: COUGH Hydroxyzine Pamoate (Vistaril -) 100 mg PO BID PRN PRN Reason: itching Propofol (Diprivan -) 1,000,000 mcg in 100 mls @ 2.273 mls/hr IVPB TITR [facility]; Protocol Last Admin: 09/19/19 10:14 Dose: 50 mcg/kg/min, 22.725 mls/hr Fentanyl 500 mcg/ Dextrose 100 mls @ 10 mls/hr IVPB TITR [facility] Last Admin: 09/19/19 11:29 Dose: 150 mcg/hr, 30 mls/hr Midazolam HCl (Midazolam 100mg/100ml-0.9%Nacl) 100 mg in 100 mls @ 1 mls/hr IVPB TITR [facility]; Protocol Stop: 09/19/19 14:59 Last Admin: 09/19/19 00:57 Dose: 10 mg/hr, 10 mls/hr Vecuronium [place] 50 mg/ (Dextrose) 250 mls @ 22.72 mls/hr IVPB TITR [facility] Last Admin: 09/18/19 19:09 Dose: Not Given Norepinephrine Bitartrate 4, (000 mcg/ Dextrose) 500 mls @ 37.5 mls/hr IV TITR [facility]; Protocol Last Titration: 09/19/19 05:55 Dose: 5 mcg/min, 37.5 mls/hr Cefepime HCl (Maxipime 2gm Ivpb (Premix)) 2 gm in 50 mls @ 100 mls/hr IVPB BID [facility]; Protocol Insulin Detemir (Levemir Vial) 5 units SQ HS [facility] Last Admin: 09/18/19 22:08 Dose: 5 units Ipratropium [place] (Atrovent 0.02% Nebulizer -) 1 amp NEB RQID [facility] Last Admin: 09/19/19 14:36 Dose: 1 amp Levalbuterol HCl (Xopenex) 0.31 mg IH Q8H PRN PRN Reason: ASTHMA Levalbuterol HCl (Xopenex) 0.63 mg IH RTID [facility] Last Admin: 09/19/19 14:36 Dose: 0.63 mg Methylprednisolone Sodium Succinate (Solu-Medrol -) 60 mg IVPUSH Q6H-IV [facility] Last Admin: 09/19/19 09:29 Dose: 60 mg Mupirocin (Bactroban Ointment (For Decolonization) -) 1 applic NS BID [facility] Stop: 09/23/19 19:32 Last Admin: 09/19/19 10:11 Dose: 1 applic Non-Formulary Medication (Cyclosporine [Restasis]) 1 drop OU ASDIR [facility]DEEP Nystatin (Nystatin Oral Suspension -) 500,000 units PO Q6HPO [facility] Last Admin: 09/19/19 13:11 Dose: Not Given Oseltamivir Phosphate (Tamiflu -) 75 mg PO BID [facility] Stop: 09/22/19 15:59 Last Admin: 09/19/19 10:12 Dose: 75 mg Roflumilast (Daliresp) 500 mcg PO DAILY [facility] Last Admin: 09/19/19 10:43 Dose: 500 mcg Tiotropium [place] (Spiriva Respimat) 2 puff IH DAILY [facility] ASSESSMENT/PLAN: 59 y.o. F PMH COPD and asthma (never intubated in the past), HTN, HLD, DM, A-fib (on eliquis), CVA w/ R sided deficits, recent episode shingles 07/2019 w/ residual R eye visual deficits, postherpetic neuralgia now on gabapentin, multiple mrsa infections in past, recent admission 09/10-09/12/2019 for acute copd exacerbation who presented again on 09/13 for worsening dyspnea. Now intubated 22 worsening respiratory distress. 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 Recent abg this evening showing improving pH 7.2, co2 75.1, po2 86.2 -[facility] recommends paralyze w/ 10mg vecuronium & disconnect vent for a few seconds, decreasing PEEP to 5, decr RR to 20 -f/u sputum culture, legionella & s penumo ag -continue inhaled bronchodilators -maintain O2 sat >90% #Renal -Hyperkalemia to >6 -oliguria -S/p 2 x doses ca gluconate 1gIV, kayexalate 30mg OGT, 10U insulin push, D50 25mg IV push-- K+ now 5.9 -L femoral trialysis catheter placed for emergent dialysis -DANIEL Cr 2.8 trend renal labs -Holding vancomycin -avoid nephrotoxic medications -f/u urine lytes -Dr. Amezcua following #ID -extensive mrsa history -s/p vanc/ cefepime-- cefepime d/c'd -now giving naga -f/u repeat cultures -ID following #PPX -on eliquis for a-fib -pepcid 20mg ogt #FENLTD -no standing fluids -s/p 2 x hyperkalemia cocktails-- continue to trend lytes -NPO -central line placed 09/18 R IJ -L femoral trialysis cath placed today for emergent dialysis access -coleman in place since 09/18 #Dispo Transfer initiated to [facility] ICU, consent obtained from son & paperwork signed in chart Called ECMO service at [facility] for possible transfer to ECMO service, patient denied due to her renal failure. Spoke w/ cardiothoracic surgeon attending ECMO Dr. Santos. Visit type - Emergency Visit Emergency Visit: No - New Patient This patient is new to me today: No - Critical Care Critical Care patient: Yes Total Critical Care Time (in minutes): 45 Critical Care Statement: The care of this patient involved high complexity decision making to prevent further life threatening deterioration of the patient's condition and/or to evaluate & treat vital organ system(s) failure or risk of failure. ATTENDING PHYSICIAN STATEMENT I saw and evaluated the patient. I reviewed the resident's note and discussed the case with the resident. I agree with the resident's findings and plan as documented. SUBJECTIVE: OBJECTIVE: ASSESSMENT AND PLAN:
--- NOTE | 2019-09-19 15:55 | CONSULT ---
Consult Consult Specialty:: Nephrology Reason for Consultation:: DANIEL and hyperkalemia - History of Present Illness Chief Complaint: shortness of breath History of Present Illness: Pt is a 59 year old female with pmhx of copd, htn, hld, dm, a-fib, and recent shingles who presents to the ER with worsening shortness of breath. She took prednisone at home. She developed worsening respiratory distress and was intubated during her hospital stay. She was admitted to the ICU. 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 Potassium was treated medically in the ICU with no improvement. I was called to evaluate her for HD. She is lethargic and intubated, unable to give history. I attempted to reach her son who did not answer. I spoke to her mother about treatment options and she agrees to HD. 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 Cardio/Vascular: Yes: AFIB, CAD, CHF, Deep Vein Thrombosis, HTN, Hyperlipdemia Pulmonary: Yes: Bronchitis, COPD, Pneumonia, Pulmonary Embolus (on Eliquis) Gastrointestinal: Yes: GERD, Other (HERNIA REPAIR WITH COMPLICATIONS AND POST OP SBO) ...LMP: 06/30/13 Infectious Disease: Yes: MRSA Psych: Yes: Anxiety Musculoskeletal: Yes: Osteoarthritis Rheumatology: Yes: Other (OSTEOARTHRITIS) Endocrine: Yes: Diabetes Mellitus - Past Surgical History Past Surgical History: Yes: Hernia Repair - Alcohol/Substance Use Hx Alcohol Use: No History of Substance Use: reports: None - Smoking History Smoking history: Never smoked Have you smoked in the past 12 months: No Aproximately how many cigarettes per day: 0 If you are a former smoker, when did you quit?: 2013 - Social History Usual Living Arrangement: Alone ADL: Independent History of Recent Travel: No Home Medications - Allergies Allergies/Adverse Reactions: Allergies Allergy/AdvReac Type Severity Reaction Status Date / Time Penicillins Allergy Hives Verified 09/13/19 17:04 Sulfa (Sulfonamide Allergy Hives Verified 09/13/19 17:04 Antibiotics) [Sulfa(Sulfonamide Antibiotics)] - Home Medications Home Medications: Ambulatory Orders Amitriptyline HCl [Elavil -] 75 mg PO HS 09/13/19 Apixaban [Eliquis] 5 mg PO BID 09/13/19 Atorvastatin Calcium [Lipitor] 10 mg PO HS 09/13/19 Cholecalciferol (Vitamin D3) [Vitamin D3 -] 2,000 unit PO DAILY 09/13/19 Clobetasol/Skin Cleanser No.28 [[place] 0.05% Kit] 1 each TP BID 09/13/19 Cyanocobalamin [Vitamin B12 -] 1,000 mcg PO DAILY 09/13/19 Cyclosporine [Restasis] 1 drop OU ASDIR 09/13/19 Diltiazem Cd [Cardizem Cd -] 300 mg PO DAILY 09/13/19 Gabapentin 300 mg PO ASDIR 09/13/19 Hydroxyzine HCl 2 tab PO BID PRN 09/13/19 Prednisolone 1% Ophthalmic [Pred Forte 1% -] 1 drop OU ASDIR 09/13/19 Prednisone 50 mg PO ASDIR 09/13/19 Tiotropium [place] [Spiriva] 1 inh IN DAILY 09/13/19 Family Medical History Family History: Unable to Obtain Review of Systems Unable to obtain ROS, reason: pt lethargic Physical Exam Vital Signs: Vital Signs Temperature 96.5 F L 09/19/19 14:00 Pulse Rate 76 09/19/19 14:00 Respiratory Rate 36 H 09/19/19 14:00 Blood Pressure 103/68 09/19/19 14:00 O2 Sat by Pulse Oximetry (%) 100 09/19/19 09:20 Constitutional: Yes: Calm Eyes: Yes: Conjunctiva Clear Cardiovascular: Yes: S1, S2 Respiratory: Yes: Intubated, Mechanically Ventilated Gastrointestinal: Yes: Soft Renal/: Yes: Estrada Present, Oliguria Musculoskeletal: Yes: Muscle Weakness Edema: No Neurological: Yes: Lethargy Labs: CBC, BMP 09/19/19 07:45 Laboratory Tests 09/13/19 09/14/19 09/15/19 18:35 06:40 06:35 Potassium 3.6 4.3 4.3 Creatinine 1.1 0.8 0.7 09/18/19 09/19/19 09/19/19 06:52 05:47 07:45 Potassium 4.0 6.3 H* 6.3 H* Creatinine 0.7 2.3 H 2.4 H 09/19/19 09/19/19 12:30 15:00 Potassium 6.3 H* Creatinine 2.8 H Pending Imaging - Results Chest X-ray: Report Reviewed Problem List - Problems (1) Hyperkalemia Code(s): E87.5 - HYPERKALEMIA (2) DANIEL (acute kidney injury) Code(s): N17.9 - ACUTE KIDNEY FAILURE, UNSPECIFIED (3) Zoster Code(s): B02.9 - ZOSTER WITHOUT COMPLICATIONS Qualifiers: Herpes zoster complications: without complications Qualified Code(s): B02.9 - Zoster without complications Assessment/Plan Current Medications Generic Name Dose Route Start Last Admin Trade Name Freq PRN Reason Stop Dose Admin Amitriptyline HCl 75 mg 09/18/19 22:00 09/18/19 23:08 Elavil - PO Not Given HS SANDEEP Apixaban 5 mg 09/18/19 22:00 09/19/19 10:12 Eliquis - PO 5 mg BID SANDEEP Administration Artificial Tears 1 drop 09/18/19 19:33 Artificial Tears OU BID PRN DRY EYES Atorvastatin Calcium 10 mg 09/18/19 22:00 09/18/19 21:34 Lipitor - PO 10 mg HS SANDEEP Administration Budesonide/Formoterol Fumarate 2 puff 09/18/19 22:00 09/19/19 10:12 Symbicort 160/4.5mcg - IH Not Given BID SANDEEP Chlorhexidine Gluconate 1 applic 09/18/19 22:00 09/18/19 21:33 Hibiclens For Decolonization - TP 1 applic HS [facility]EP Administration Cholecalciferol 2,000 unit 09/19/19 10:00 09/19/19 10:12 Vitamin D3 - PO 2,000 unit DAILY [facility]EP Administration Cyanocobalamin 1,000 mcg 09/19/19 10:00 09/19/19 10:43 Vitamin B12 - PO 1,000 mcg DAILY [facility]EP Administration Diltiazem HCl 60 mg 09/19/19 08:23 09/19/19 13:11 Cardizem - GT Not Given Q6HPO [facility]DEEP Diltiazem HCl 10 mg 09/19/19 08:22 Cardizem Injection - IVPUSH Q4H PRN TACHYCARDIA Diphenhydramine HCl 25 mg 09/18/19 19:33 Benadryl - PO TID PRN ALLERGIES Famotidine 20 mg 09/18/19 14:00 09/19/19 10:43 Pepcid NGT 20 mg DAILY SANDEEP Administration Gabapentin 400 mg 09/18/19 14:00 09/19/19 15:32 Neurontin Oral Liquid - GT Not Given TID [facility] Glipizide 2.5 mg 09/19/19 07:00 09/19/19 09:22 Glucotrol - PO 2.5 mg DAILY@0700 [facility] Administration Guaifenesin 10 ml 09/18/19 19:33 Robitussin - PO Q4H PRN COUGH Hydroxyzine Pamoate 100 mg 09/18/19 19:33 Vistaril - PO BID PRN itching Propofol 1,000,000 mcg in 100 mls @ 2.273 mls/hr 09/18/19 09:45 09/19/19 10: 14 Diprivan - IVPB 50 mcg/kg/min TITR SANDEEP 22.725 mls/hr Administration Protocol 5 MCG/KG/MIN Fentanyl 500 mcg/ Dextrose 100 mls @ 10 mls/hr 09/18/19 10:45 09/19/19 11:29 IVPB 150 mcg/hr TITR SANDEEP 30 mls/hr Administration 50 MCG/HR Vecuronium [place] 50 mg/ 250 mls @ 22.72 mls/hr 09/18/19 17:45 09/18/19 19: 09 Dextrose IVPB Not Given TITR SANDEEP 1 MCG/KG/MIN Norepinephrine Bitartrate 4, 500 mls @ 37.5 mls/hr 09/18/19 23:00 09/19/19 05 :55 000 mcg/ Dextrose IV 5 mcg/min TITR SANDEEP 37.5 mls/hr Titration Protocol 5 MCG/MIN Cefepime HCl 2 gm/ Dextrose 100 mls @ 100 mls/hr 09/19/19 22:00 IVPB BID [facility] Protocol Insulin Detemir 5 units 09/18/19 22:00 09/18/19 22:08 Levemir Vial SQ 5 units HS [facility] Administration Ipratropium [place] 1 amp 09/18/19 16:00 09/19/19 14:36 Atrovent 0.02% Nebulizer - NEB 1 amp RQID [facility] Administration Levalbuterol HCl 0.31 mg 09/18/19 19:33 Xopenex IH Q8H PRN ASTHMA Levalbuterol HCl 0.63 mg 09/18/19 20:00 09/19/19 14:36 Xopenex IH 0.63 mg RTID [facility]EP Administration Methylprednisolone Sodium Succinate 60 mg 09/18/19 21:00 09/19/19 09:29 Solu-Medrol - IVPUSH 60 mg Q6H-IV [facility] Administration Mupirocin 1 applic 09/18/19 19:33 09/19/19 10:11 Bactroban Ointment (For Decolonization) - NS 09/23/19 19:32 1 applic BID [facility] Administration Non-Formulary Medication 1 drop 09/18/19 19:33 Cyclosporine [Restasis] OU ASDIR [facility]DEEP Nystatin 500,000 units 09/19/19 00:00 09/19/19 13:11 Nystatin Oral Suspension - PO Not Given Q6HPO [facility] Oseltamivir Phosphate 75 mg 09/18/19 22:00 09/19/19 10:12 Tamiflu - PO 09/22/19 15:59 75 mg BID [facility] Administration Roflumilast 500 mcg 09/19/19 10:00 09/19/19 10:43 Daliresp PO 500 mcg DAILY [facility] Administration Tiotropium [place] 2 puff 09/19/19 10:00 Spiriva Respimat IH DAILY [facility]DEEP Impression 1. DANIEL 2. hyperkalemia 3. resp failure 4. copd 5. sepsis 6. PNA 7. HTN 8. DM 9. hypoxia Plan - potassium not responding to medical management - pt in oliguric renal failure - will arrange for HD today - called and discussed with pts mother for consent, son is not reacheable - discussed with ICU team - possible transfer to tertiary care center - pressors to map of 65 -
[2019-09-19 16:00] LABS: HYALINE CASTS 24 /lpf (0-8); URINE APPEARANCE CLOUDY; URINE BACTERIA 1.2 /hpf (NEGATIVE); URINE BILIRUBIN NEGATIVE (NEGATIVE); URINE COLOR YELLOW; URINE GLUCOSE (UA) 1+ (NEGATIVE); URINE KETONE NEGATIVE (NEGATIVE); URINE LEUK ESTERASE NEGATIVE (NEGATIVE); URINE NITRITE NEGATIVE (NEGATIVE); URINE PROTEIN 1+ (NEGATIVE); URINE UROBILINOGEN 0.2 mg/dL (0.2-1.0); URINE WBC 8 /hpf (0-5)
[2019-09-19 16:00] LABS: ALBUMIN 1.7 g/dl (3.4-5.0); BILIRUBIN,TOTAL 0.5 mg/dL (0.2-1); BLOOD UREA NITROGEN 62.8 mg/dL (7-18); CREATININE 2.8 mg/dL (0.55-1.3); POTASSIUM 5.9 mmol/L (3.5-5.1); TOT PROT 4.9 g/dl (6.4-8.2)
[2019-09-19] MEDS ORDERED: SODIUM CHLORIDE 250 ML IV PRN (16:09)
[2019-09-19] MEDS ORDERED: VECURONIUM BROMIDE 10 MG/10 ML VIAL IVPUSH ONE (16:13)
--- NOTE | 2019-09-19 16:30 | PROC ---
Central Line Insertion Indication: Other Risks and Benefits Explained: Yes Consent on Chart: Yes Central Line: Dialysis Cath, Tri Lumen Anesthesia: 1% Lidocaine Sterile Technique: Yes Ultrasound Guided Assistance: Yes Position: Left Femoral Post Insertion: Yes: Other (KUB ordered) Sterile Dressing Applied: Yes
[2019-09-19 16:45] LABS: URINE RBC 37.1 /hpf (0-4)
[2019-09-19] MEDS ORDERED: VECURONIUM BROMIDE 50 MG/50 ML VIAL IVPUSH ONE (16:54)
[2019-09-19] MEDS ORDERED: VECURONIUM BROMIDE 10 MG/10 ML VIAL ONE (17:16)
[2019-09-19] MEDS ORDERED: methylPREDNISolone NA SUCC 125 MG/2 ML VIAL ONE (17:42)
[2019-09-19] MEDS ORDERED: VECURONIUM BROMIDE 50 MG in DEXTROSE 5%-WATER - 250 ML IVPB SCH (18:00)
[2019-09-19 18:39] LABS: BASO % 1.3 % (0-2.0); HEMATOCRIT 27.8 % (32.4-45.2); HEMOGLOBIN 8.2 GM/dL (10.7-15.3); MCH 22.2 pg (25.7-33.7); MCHC 29.4 g/dl (32.0-36.0); MEAN CELL VOLUME 75.3 fl (80-96); MEAN PLT VOLUME 7.6 fl (7.5-11.1); MONO % 1.9 % (3.8-10.2); NEUT % 94.8 % (42.8-82.8); PLATELET COUNT 230 K/MM3 (134-434); RBC 3.69 M/mm3 (3.60-5.2); RDW 18.2 % (11.6-15.6); WHITE BLOOD COUNT 19.2 K/mm3 (4.0-10.0)
[2019-09-19] MEDS: VECURONIUM BROMIDE 50 MG in DEXTROSE 5%-WATER - 250 ML IVPB SCH (18:40)
[2019-09-19 18:58] LABS: ALLENS TEST POSITIVE; ARTERIAL BLD GAS O2 SATURATION 94.6 % (95-98); ARTERIAL BLOOD GAS BASE EXCESS -0.4 meq/l (-2-2); ARTERIAL BLOOD GAS PO2 86.2 mmHg (80-100)
[2019-09-19 19:03] LABS: ARTERIAL BLOOD GAS PCO2 75.1 mmHg (35-45)
[2019-09-19 19:06] LABS: BLOOD UREA NITROGEN 28.6 mg/dL (7-18); CALCIUM 7.2 mg/dL (8.5-10.1); CREATININE 1.5 mg/dL (0.55-1.3); POTASSIUM 3.8 mmol/L (3.5-5.1)
[2019-09-19 19:08] LABS: ALBUMIN 1.8 g/dl (3.4-5.0); BILIRUBIN,TOTAL 0.3 mg/dL (0.2-1); BLOOD UREA NITROGEN 27.1 mg/dL (7-18); CALCIUM 7.2 mg/dL (8.5-10.1); CREATININE 1.4 mg/dL (0.55-1.3); MAGNESIUM 2.2 mg/dL (1.8-2.4); PHOSPHOROUS 5.6 mg/dL (2.5-4.9); POTASSIUM 3.7 mmol/L (3.5-5.1); TOT PROT 5.1 g/dl (6.4-8.2)
[2019-09-19] MEDS ORDERED: MEROPENEM 500 MG VIAL (RESTRICTED TO ID) IVPB ONE (19:34)
[2019-09-19] MEDS ORDERED: DEXTROSE 5%-WATER 100 ML IVPB ONE (19:35)
[2019-09-19] MEDS: MEROPENEM 500 MG in DEXTROSE 5%-WATER 100 ML IVPB SCH (19:47)
[2019-09-19 19:54] LABS: ANISOCYTOSIS 2+; MACROCYTOSIS 0; OVALOCYTE 1+; PLATELET ESTIMATE NORMAL; TEAR DROP CELLS 1+
[2019-09-19] MEDS ORDERED: MIDAZOLAM IN 0.9 % SOD.CHLORID 1 MG/1 ML PLAST..BAG ONE (19:57)
[2019-09-19 21:25] LABS: CREATININE 1.1 mg/dL (0.55-1.3); POTASSIUM 3.5 mmol/L (3.5-5.1)
[2019-09-19] MEDS ORDERED: CEFEPIME 2 GM in DEXTROSE 5%-WATER 100 ML IVPB SCH (22:00)
[2019-09-19] MEDS: ATORVASTATIN CA 10 MG TABLET (FP) PO SCH (22:17)
[2019-09-19] MEDS: CHLORHEXIDINE GLUCONATE 4% CLEANSER FOR DECOLONIZATION TP SCH (22:18)
[2019-09-19] MEDS: MIDAZOLAM 100 MG in SODIUM CHLORIDE 100 ML IVPB SCH (22:32)
[2019-09-20] MEDS: INSULIN (LEVEMIR) 100 UNITS/ML UNITS SQ SCH (00:05)
[2019-09-20] MEDS: dilTIAZem HCL 60 MG TABLET (FP) GT SCH ×4 (00:06→18:03)
[2019-09-20] MEDS: NYSTATIN 500,000 UNITS/5 ML SUSPENSION PO SCH ×4 (00:07→18:06)
[2019-09-20] MEDS: PROPOFOL 1,000,000 MCG/100 ML VIAL IVPB SCH ×4 (00:14→14:33)
[2019-09-20] MEDS: FENTANYL INJECTION 500 MCG in DEXTROSE 5%-WATER - 90 ML IVPB SCH ×2 (00:15→07:13)
[2019-09-20] MEDS ORDERED: fentaNYL CITRATE 250 MCG/5 ML VIAL ONE ×2 (02:05→07:51)
[2019-09-20] MEDS: methylPREDNISolone NA SUCC 40 MG/1 ML VIAL IVPUSH SCH ×3 (02:19→15:30)
[2019-09-20] MEDS ORDERED: MIDAZOLAM IN 0.9 % SOD.CHLORID 1 MG/1 ML PLAST..BAG ONE ×2 (03:21→14:24)
[2019-09-20] MEDS: NOREPINEPHRINE BITARTRATE 4,000 MCG in DEXTROSE 5%-WATER - 496 ML IV SCH (07:06)
[2019-09-20] MEDS: GABAPENTIN 250 MG/5 ML ORAL SOLUTION, 470 ML BOTTLE GT SCH ×2 (07:07→14:32)
[2019-09-20] MEDS: glipiZIDE 5 MG TABLET (FP) PO SCH (07:08)
[2019-09-20] MEDS: MIDAZOLAM 100 MG in SODIUM CHLORIDE 100 ML IVPB SCH ×2 (07:11→14:35)
--- NOTE | 2019-09-20 07:25 | PN ---
Physical Exam: SUBJECTIVE: Patient seen and examined Patient with worsening respiratory status overnight, paralyzed with vecuronium alternating between 0.5 and 1 due to varying level of paralysis. Patient also on 150 of fentanyl, 10 of midazolam, and 50 of propofol. Repeat ABG in the afternoon improved from 7.09/78.9/159/22.9 to 7.2/75.1/86.2/28 after switching to tidal volume of 375. Patient initially on 20 of PEEP, RR of 36, FiO2 100%. Planned for transfer to the [facility] ICU pending bed. RR changed to 32 and PEEP changed to 18. OBJECTIVE: Vital Signs Period Temp Pulse Resp BP Sys/Jordan Pulse Ox Last 24 Hr 94 F-100.7 F 72-112 18-36 90-151/52-77 100-100 GENERAL: The patient is intubated on ventilator. HEAD: Normal with no signs of trauma. LUNGS: Diffuse coarse lung sounds HEART: Regular rate and rhythm ABDOMEN: Soft, nontender, nondistended EXTREMITIES: 2+ pulses, warm, well-perfused, no edema. NEUROLOGICAL: Unable to assess due to paralysis and intubation SKIN: Warm, dry Laboratory Results - last 24 hr 09/19/19 09/19/19 09/19/19 05:47 05:47 07:45 WBC 19.1 H 20.5 H RBC 3.93 3.98 Hgb 8.8 L 8.8 L Hct 30.6 L 31.2 L MCV 77.7 L 78.4 L MCH 22.3 L 22.0 L MCHC 28.7 L 28.1 L RDW 19.3 H 18.7 H Plt Count 292 290 MPV 7.8 7.4 L Absolute Neuts (auto) 18.3 H 19.6 H Neutrophils % 95.8 H 95.5 H Neutrophils % (Manual) 90.7 H 90.8 H Band Neutrophils % 7.5 7.2 Lymphocytes % 1.3 L 1.6 L D Lymphocytes % (Manual) 0.9 L 0.0 L Monocytes % 2.9 L 2.5 L Monocytes % (Manual) 0 L D 0 L Eosinophils % 0.0 0.1 D Eosinophils % (Manual) 0.9 D 0.0 Basophils % 0.0 0.3 D Basophils % (Manual) 0.0 0.0 Myelocytes % (Man) 0 0 Promyelocytes % (Man) 0 0 Blast Cells % (Manual) 0 0 Nucleated RBC % 0 1 H Metamyelocytes 0 0 Hypochromia 0 0 Platelet Estimate Normal Normal Platelet Comment Present Polychromasia 1+ 1+ Poikilocytosis 2+ 2+ Anisocytosis 1+ 1+ Microcytosis 1+ 1+ Macrocytosis 0 0 Spherocytes 1+ 1+ Tear Drop Cells 1+ Ovalocytes 1+ 1+ [place] Cells 2+ Schistocytes 1+ Anticoagulation Therapy Puncture Site ABG pH ABG pCO2 at Pt Temp ABG pO2 at Pt Temp ABG HCO3 ABG O2 Sat (Measured) ABG O2 Content ABG Base Excess Foreign Test O2 Delivery Device Oxygen Flow Rate Vent Mode Vent Rate Mechanical Rate PEEP Pressure Support Vent Sodium 130 L Potassium 6.3 H* Chloride 93 L Carbon Dioxide 26 Anion Gap 10 BUN 55.8 H Creatinine 2.3 H Est GFR (CKD-EPI)AfAm 26.09 Est GFR (CKD-EPI)NonAf 22.51 POC Glucometer Random Glucose 377 H Calcium 7.5 L Phosphorus > 9.0 H* Magnesium 3.0 H Total Bilirubin 0.4 AST 34 ALT 32 Alkaline Phosphatase 93 Total Protein 5.5 L Albumin 2.0 L Urine Color Urine Appearance Urine pH Ur Specific [place] Urine Protein Urine Glucose (UA) Urine Ketones Urine Blood Urine Nitrite Urine Bilirubin Urine Urobilinogen Ur Leukocyte Esterase Urine WBC (Auto) Urine RBC (Auto) Urine Casts (Auto) U Pathogenic Cast Auto U Epithel Cells (Auto) Urine Bacteria (Auto) Ur Random Creatinine Ur Random Sodium Ur Random Potassium Ur Random Chloride Random Vancomycin 09/19/19 09/19/19 09/19/19 07:45 10:15 12:30 WBC RBC Hgb Hct MCV MCH MCHC RDW Plt Count MPV Absolute Neuts (auto) Neutrophils % Neutrophils % (Manual) Band Neutrophils % Lymphocytes % Lymphocytes % (Manual) Monocytes % Monocytes % (Manual) Eosinophils % Eosinophils % (Manual) Basophils % Basophils % (Manual) Myelocytes % (Man) Promyelocytes % (Man) Blast Cells % (Manual) Nucleated RBC % Metamyelocytes Hypochromia Platelet Estimate Platelet Comment Polychromasia Poikilocytosis Anisocytosis Microcytosis Macrocytosis Spherocytes Tear Drop Cells Ovalocytes Mark Cells Schistocytes Anticoagulation Therapy No Result Required. Puncture Site Right radial ABG pH 7.11 L* ABG pCO2 at Pt Temp 73.5 H* ABG pO2 at Pt Temp 146 H ABG HCO3 22.4 ABG O2 Sat (Measured) 98.2 H ABG O2 Content 11.7 ABG Base Excess -7.0 L Foreign Test Positive O2 Delivery Device No Result Required. Oxygen Flow Rate Yes Vent Mode No Result Required. Vent Rate No Result Required. Mechanical Rate No Result Required. PEEP Pressure Support Vent No Result Required. Sodium 129 L 128 L Potassium 6.3 H* 6.3 H* Chloride 92 L 93 L Carbon Dioxide 24 23 Anion Gap 13 12 BUN 57.2 H 61.1 H Creatinine 2.4 H 2.8 H Est GFR (CKD-EPI)AfAm 24.78 20.57 Est GFR (CKD-EPI)NonAf 21.38 17.75 POC Glucometer Random Glucose 347 H 287 H Calcium 7.3 L 7.4 L Phosphorus > 9.0 H* Magnesium 3.4 H Total Bilirubin 0.4 AST 40 H ALT 32 Alkaline Phosphatase 92 Total Protein 5.5 L Albumin 2.0 L Urine Color Urine Appearance Urine pH Ur Specific [place] Urine Protein Urine Glucose (UA) Urine Ketones Urine Blood Urine Nitrite Urine Bilirubin Urine Urobilinogen Ur Leukocyte Esterase Urine WBC (Auto) Urine RBC (Auto) Urine Casts (Auto) U Pathogenic Cast Auto U Epithel Cells (Auto) Urine Bacteria (Auto) Ur Random Creatinine Ur Random Sodium Ur Random Potassium Ur Random Chloride Random Vancomycin 09/19/19 09/19/19 09/19/19 13:55 14:50 14:50 WBC RBC Hgb Hct MCV MCH MCHC RDW Plt Count MPV Absolute Neuts (auto) Neutrophils % Neutrophils % (Manual) Band Neutrophils % Lymphocytes % Lymphocytes % (Manual) Monocytes % Monocytes % (Manual) Eosinophils % Eosinophils % (Manual) Basophils % Basophils % (Manual) Myelocytes % (Man) Promyelocytes % (Man) Blast Cells % (Manual) Nucleated RBC % Metamyelocytes Hypochromia Platelet Estimate Platelet Comment Polychromasia Poikilocytosis Anisocytosis Microcytosis Macrocytosis Spherocytes Tear Drop Cells Ovalocytes Mark Cells Schistocytes Anticoagulation Therapy No Result Required. Puncture Site Right radial ABG pH 7.09 L* ABG pCO2 at Pt Temp 78.9 H* ABG pO2 at Pt Temp 159 H ABG HCO3 22.9 ABG O2 Sat (Measured) 98.4 H ABG O2 Content 12.2 ABG Base Excess -7.2 L Foreign Test Positive O2 Delivery Device No Result Required. Oxygen Flow Rate 100 Vent Mode No Result Required. Vent Rate 36 Mechanical Rate No Result Required. PEEP Pressure Support Vent No Result Required. Sodium Potassium Chloride Carbon Dioxide Anion Gap BUN Creatinine Est GFR (CKD-EPI)AfAm Est GFR (CKD-EPI)NonAf POC Glucometer Random Glucose Calcium Phosphorus Magnesium Total Bilirubin AST ALT Alkaline Phosphatase Total Protein Albumin Urine Color Urine Appearance Urine pH Ur Specific [place] Urine Protein Urine Glucose (UA) Urine Ketones Urine Blood Urine Nitrite Urine Bilirubin Urine Urobilinogen Ur Leukocyte Esterase Urine WBC (Auto) Urine RBC (Auto) Urine Casts (Auto) U Pathogenic Cast Auto U Epithel Cells (Auto) Urine Bacteria (Auto) Ur Random Creatinine 56.0 Ur Random Sodium 26 L Ur Random Potassium 34.9 Ur Random Chloride 13 L Random Vancomycin 09/19/19 09/19/19 09/19/19 14:50 15:00 16:20 WBC RBC Hgb Hct MCV MCH MCHC RDW Plt Count MPV Absolute Neuts (auto) Neutrophils % Neutrophils % (Manual) Band Neutrophils % Lymphocytes % Lymphocytes % (Manual) Monocytes % Monocytes % (Manual) Eosinophils % Eosinophils % (Manual) Basophils % Basophils % (Manual) Myelocytes % (Man) Promyelocytes % (Man) Blast Cells % (Manual) Nucleated RBC % Metamyelocytes Hypochromia Platelet Estimate Platelet Comment Polychromasia Poikilocytosis Anisocytosis Microcytosis Macrocytosis Spherocytes Tear Drop Cells Ovalocytes Mark Cells Schistocytes Anticoagulation Therapy Puncture Site ABG pH ABG pCO2 at Pt Temp ABG pO2 at Pt Temp ABG HCO3 ABG O2 Sat (Measured) ABG O2 Content ABG Base Excess Foreign Test O2 Delivery Device Oxygen Flow Rate Vent Mode Vent Rate Mechanical Rate PEEP Pressure Support Vent Sodium 127 L Potassium 5.9 H Chloride 92 L Carbon Dioxide 22 Anion Gap 14 BUN 62.8 H Creatinine 2.8 H Est GFR (CKD-EPI)AfAm 20.57 Est GFR (CKD-EPI)NonAf 17.75 POC Glucometer Random Glucose 338 H Calcium 8.0 L Phosphorus Magnesium Total Bilirubin 0.5 AST 38 H ALT 27 Alkaline Phosphatase 77 Total Protein 4.9 L Albumin 1.7 L Urine Color Yellow Urine Appearance Cloudy Urine pH 5.0 Ur Specific [place] 1.020 Urine Protein 1+ H Urine Glucose (UA) 1+ H Urine Ketones Negative Urine Blood 3+ H Urine Nitrite Negative Urine Bilirubin Negative Urine Urobilinogen 0.2 Ur Leukocyte Esterase Negative Urine WBC (Auto) 8 Urine RBC (Auto) 37.1 Urine Casts (Auto) 24 U Pathogenic Cast Auto U Epithel Cells (Auto) 9.0 Urine Bacteria (Auto) 1.2 Ur Random Creatinine Ur Random Sodium Ur Random Potassium Ur Random Chloride Random Vancomycin 30.8 H* 09/19/19 09/19/19 09/19/19 17:55 17:55 17:55 WBC 19.2 H RBC 3.69 Hgb 8.2 L Hct 27.8 L MCV 75.3 L MCH 22.2 L MCHC 29.4 L RDW 18.2 H Plt Count 230 D MPV 7.6 Absolute Neuts (auto) 18.2 H Neutrophils % 94.8 H Neutrophils % (Manual) 92.1 H Band Neutrophils % 2.9 Lymphocytes % 2.0 L D Lymphocytes % (Manual) 2.0 L D Monocytes % 1.9 L Monocytes % (Manual) 2 L D Eosinophils % 0.0 D Eosinophils % (Manual) 0.0 Basophils % 1.3 D Basophils % (Manual) 0.0 Myelocytes % (Man) 0 Promyelocytes % (Man) 0 Blast Cells % (Manual) 0 Nucleated RBC % 2 H Metamyelocytes 1 D Hypochromia 0 Platelet Estimate Normal Platelet Comment Polychromasia 0 Poikilocytosis 2+ Anisocytosis 2+ Microcytosis 2+ Macrocytosis 0 Spherocytes Tear Drop Cells 1+ Ovalocytes 1+ [place] Cells Schistocytes 1+ Anticoagulation Therapy Puncture Site ABG pH ABG pCO2 at Pt Temp ABG pO2 at Pt Temp ABG HCO3 ABG O2 Sat (Measured) ABG O2 Content ABG Base Excess Foreign Test O2 Delivery Device Oxygen Flow Rate Vent Mode Vent Rate Mechanical Rate PEEP Pressure Support Vent Sodium 137 135 L Potassium 3.7 3.8 Chloride 98 97 L Carbon Dioxide 32 30 Anion Gap 8 8 BUN 27.1 H 28.6 H Creatinine 1.4 H 1.5 H Est GFR (CKD-EPI)AfAm 47.55 43.74 Est GFR (CKD-EPI)NonAf 41.02 37.74 POC Glucometer Random Glucose 179 H 177 H Calcium 7.2 L 7.2 L Phosphorus 5.6 H Magnesium 2.2 Total Bilirubin 0.3 AST 39 H ALT 30 Alkaline Phosphatase 84 Total Protein 5.1 L Albumin 1.8 L Urine Color Urine Appearance Urine pH Ur Specific [place] Urine Protein Urine Glucose (UA) Urine Ketones Urine Blood Urine Nitrite Urine Bilirubin Urine Urobilinogen Ur Leukocyte Esterase Urine WBC (Auto) Urine RBC (Auto) Urine Casts (Auto) U Pathogenic Cast Auto U Epithel Cells (Auto) Urine Bacteria (Auto) Ur Random Creatinine Ur Random Sodium Ur Random Potassium Ur Random Chloride Random Vancomycin 09/19/19 09/19/19 09/19/19 18:40 20:22 23:17 WBC RBC Hgb Hct MCV MCH MCHC RDW Plt Count MPV Absolute Neuts (auto) Neutrophils % Neutrophils % (Manual) Band Neutrophils % Lymphocytes % Lymphocytes % (Manual) Monocytes % Monocytes % (Manual) Eosinophils % Eosinophils % (Manual) Basophils % Basophils % (Manual) Myelocytes % (Man) Promyelocytes % (Man) Blast Cells % (Manual) Nucleated RBC % Metamyelocytes Hypochromia Platelet Estimate Platelet Comment Polychromasia Poikilocytosis Anisocytosis Microcytosis Macrocytosis Spherocytes Tear Drop Cells Ovalocytes Mark Cells Schistocytes Anticoagulation Therapy No Result Required. Puncture Site Right radial ABG pH 7.20 L ABG pCO2 at Pt Temp 75.1 H* ABG pO2 at Pt Temp 86.2 ABG HCO3 28.0 H ABG O2 Sat (Measured) 94.6 L ABG O2 Content 10.9 ABG Base Excess -0.4 Foreign Test Positive O2 Delivery Device No Result Required. Oxygen Flow Rate 100 Vent Mode No Result Required. Vent Rate 36 Mechanical Rate No Result Required. PEEP 20.0 Pressure Support Vent 375 Sodium 137 Potassium 3.5 Chloride 99 Carbon Dioxide 32 Anion Gap 6 L BUN 19.0 H Creatinine 1.1 Est GFR (CKD-EPI)AfAm 63.64 Est GFR (CKD-EPI)NonAf 54.91 POC Glucometer 208 Random Glucose 180 H Calcium 7.0 L Phosphorus Magnesium Total Bilirubin AST ALT Alkaline Phosphatase Total Protein Albumin Urine Color Urine Appearance Urine pH Ur Specific [place] Urine Protein Urine Glucose (UA) Urine Ketones Urine Blood Urine Nitrite Urine Bilirubin Urine Urobilinogen Ur Leukocyte Esterase Urine WBC (Auto) Urine RBC (Auto) Urine Casts (Auto) U Pathogenic Cast Auto U Epithel Cells (Auto) Urine Bacteria (Auto) Ur Random Creatinine Ur Random Sodium Ur Random Potassium Ur Random Chloride Random Vancomycin 09/20/19 06:34 WBC RBC Hgb Hct MCV MCH MCHC RDW Plt Count MPV Absolute Neuts (auto) Neutrophils % Neutrophils % (Manual) Band Neutrophils % Lymphocytes % Lymphocytes % (Manual) Monocytes % Monocytes % (Manual) Eosinophils % Eosinophils % (Manual) Basophils % Basophils % (Manual) Myelocytes % (Man) Promyelocytes % (Man) Blast Cells % (Manual) Nucleated RBC % Metamyelocytes Hypochromia Platelet Estimate Platelet Comment Polychromasia Poikilocytosis Anisocytosis Microcytosis Macrocytosis Spherocytes Tear Drop Cells Ovalocytes [place] Cells Schistocytes Anticoagulation Therapy Puncture Site ABG pH ABG pCO2 at Pt Temp ABG pO2 at Pt Temp ABG HCO3 ABG O2 Sat (Measured) ABG O2 Content ABG Base Excess Foreign Test O2 Delivery Device Oxygen Flow Rate Vent Mode Vent Rate Mechanical Rate PEEP Pressure Support Vent Sodium Potassium Chloride Carbon Dioxide Anion Gap BUN Creatinine Est GFR (CKD-EPI)AfAm Est GFR (CKD-EPI)NonAf POC Glucometer 160 Random Glucose Calcium Phosphorus Magnesium Total Bilirubin AST ALT Alkaline Phosphatase Total Protein Albumin Urine Color Urine Appearance Urine pH Ur Specific [place] Urine Protein Urine Glucose (UA) Urine Ketones Urine Blood Urine Nitrite Urine Bilirubin Urine Urobilinogen Ur Leukocyte Esterase Urine WBC (Auto) Urine RBC (Auto) Urine Casts (Auto) U Pathogenic Cast Auto U Epithel Cells (Auto) Urine Bacteria (Auto) Ur Random Creatinine Ur Random Sodium Ur Random Potassium Ur Random Chloride Random Vancomycin Active Medications Generic Name Dose Route Start Last Admin Trade Name Freq PRN Reason Stop Dose Admin Amitriptyline HCl 75 mg 09/20/19 22:00 Elavil - PO HS SANDEEP Apixaban 5 mg 09/18/19 22:00 09/19/19 22:31 Eliquis - PO 5 mg BID SANDEEP Administration Artificial Tears 1 drop 09/18/19 19:33 Artificial Tears OU BID PRN DRY EYES Atorvastatin Calcium 10 mg 09/18/19 22:00 09/19/19 22:17 Lipitor - PO 10 mg HS SANDEEP Administration Budesonide/Formoterol Fumarate 2 puff 09/18/19 22:00 09/19/19 22:30 Symbicort 160/4.5mcg - IH Not Given BID SANDEEP Chlorhexidine Gluconate 1 applic 09/18/19 22:00 09/19/19 22:18 Hibiclens For Decolonization - TP 1 applic HS SANDEEP Administration Cholecalciferol 2,000 unit 09/19/19 10:00 09/19/19 10:12 Vitamin D3 - PO 2,000 unit DAILY SANDEEP Administration Cyanocobalamin 1,000 mcg 09/19/19 10:00 09/19/19 10:43 Vitamin B12 - PO 1,000 mcg DAILY SANDEEP Administration Diltiazem HCl 60 mg 09/19/19 08:23 09/20/19 07:07 Cardizem - GT Not Given Q6HPO SANDEEP Diltiazem HCl 10 mg 09/19/19 08:22 Cardizem Injection - IVPUSH Q4H PRN TACHYCARDIA Diphenhydramine HCl 25 mg 09/18/19 19:33 Benadryl - PO TID PRN ALLERGIES Famotidine 20 mg 09/18/19 14:00 09/19/19 10:43 Pepcid NGT 20 mg DAILY SANDEEP Administration Gabapentin 400 mg 09/18/19 14:00 09/20/19 07:07 Neurontin Oral Liquid - GT Not Given TID [facility] Glipizide 2.5 mg 09/19/19 07:00 09/20/19 07:08 Glucotrol - PO Not Given DAILY@0700 [facility] Guaifenesin 10 ml 09/18/19 19:33 Robitussin - PO Q4H PRN COUGH Hydroxyzine Pamoate 100 mg 09/18/19 19:33 Vistaril - PO BID PRN itching Propofol 1,000,000 mcg in 100 mls @ 2.273 mls/hr 09/18/19 09:45 09/20/19 07: 10 Diprivan - IVPB 50 mcg/kg/min TITR SANDEEP 22.725 mls/hr Administration Protocol 5 MCG/KG/MIN Fentanyl 500 mcg/ Dextrose 100 mls @ 10 mls/hr 09/18/19 10:45 09/20/19 07:13 IVPB 150 mcg/hr TITR SANDEEP 30 mls/hr Administration 50 MCG/HR Norepinephrine Bitartrate 4, 500 mls @ 37.5 mls/hr 09/18/19 23:00 09/20/19 07 :06 000 mcg/ Dextrose IV 5 mcg/min TITR SANDEEP 37.5 mls/hr Administration Protocol 5 MCG/MIN Sodium Chloride 250 mls @ 3,000 mls/hr 09/19/19 16:09 Normal Saline - IV 09/20/19 16:09 PRN PRN Hypotension during Dialysis Meropenem 500 mg/ Dextrose 100 mls @ 200 mls/hr 09/19/19 20:00 09/19/19 19:47 IVPB 200 mls/hr BID@0800,2000 SANDEEP Administration Vecuronium [place] 50 mg/ 250 mls @ 22.72 mls/hr 09/19/19 18:00 09/19/19 18: 29 Dextrose IVPB 0.5 mcg/kg/min TITR SANDEEP 11.36 mls/hr Infusion 1 MCG/KG/MIN Midazolam HCl 100 mg/ Sodium 100 mls @ 10 mls/hr 09/19/19 20:30 09/20/19 07: 11 Chloride IVPB 10 mg/hr TITR SANDEEP 10 mls/hr Administration Protocol 10 MG/HR Insulin Detemir 5 units 09/18/19 22:00 09/20/19 00:05 Levemir Vial SQ Not Given HS [facility] Ipratropium [place] 1 amp 09/18/19 16:00 09/19/19 20:48 Atrovent 0.02% Nebulizer - NEB 1 amp RQID SANDEEP Administration Levalbuterol HCl 0.31 mg 09/18/19 19:33 Xopenex IH Q8H PRN ASTHMA Levalbuterol HCl 0.63 mg 09/18/19 20:00 09/19/19 20:48 Xopenex IH 0.63 mg RTID SANDEEP Administration Methylprednisolone Sodium Succinate 60 mg 09/18/19 21:00 09/20/19 02:19 Solu-Medrol - IVPUSH 60 mg Q6H-IV [facility] Administration Mupirocin 1 applic 09/18/19 19:33 09/19/19 22:18 Bactroban Ointment (For Decolonization) - NS 09/23/19 19:32 1 applic BID [facility] Administration Non-Formulary Medication 1 drop 09/18/19 19:33 Cyclosporine [Restasis] OU ASDIR SANDEEP Nystatin 500,000 units 09/19/19 00:00 09/20/19 07:08 Nystatin Oral Suspension - PO Not Given Q6HPO SANDEEP Oseltamivir Phosphate 75 mg 09/18/19 22:00 09/19/19 22:29 Tamiflu - PO 09/22/19 15:59 75 mg BID SANDEEP Administration Roflumilast 500 mcg 09/19/19 10:00 09/19/19 10:43 Daliresp PO 500 mcg DAILY SANDEEP Administration Tiotropium [place] 2 puff 09/19/19 10:00 Spiriva Respimat IH DAILY SANDEEP ASSESSMENT/PLAN: 59 yo F PMH COPD and asthma (never intubated in the past), HTN, HLD, DM, afib ( on Eliquis), CVA w/ R sided deficits, recent episode shingles 07/2019 w/ residual R eye visual deficits, postherpetic neuralgia now on gabapentin, multiple MRSA infections in past, recent admission 09/10-09/12/2019 for acute COPD exacerbation, who presented again on 09/13 for worsening dyspnea. Now intubated 2/2 worsening respiratory distress. PACKER: - Sedated on propofol 50, fentanyl 150, midazolam 10 - paralyzed with vecuronium 0.5 - continue gabapentin for postherpetic neuralgia CV: - Hx HTN, afib on eliquis - Pressor support w/ levophed 5; maintain MAP >65 - rate control w/ diltiazem 60mg GT q6h; PRN 10mg IV diltiazem q4h Respiratory: - Acute hypercapnic respiratory failure - Flu A +, on tamiflu day 3 - droplet precautions - Intubated - TV increased to 375 from 350, PEEP from 20 to 18, FiO2 initially from 100% to 90%, but changed back to 100% at 1330 after desaturation - ABG yesterday with improving pH 7.2, CO2 75.1, pO2 86.2 - f/u AM AB.26/58.4/131 - call made to [facility], recommended paralysis w/ 10 mg vecuronium - f/u sputum culture, legionella & S pneumo Ag - continue inhaled bronchodilators - maintain O2 sat >90% Renal: - s/p dialysis 09/19 - L femoral trialysis placed 09/19 - K this AM is 5.2 - oliguria - s/p 2 x doses calcium gluconate 1g IV, Kayexalate 30mg OGT, 10U insulin push, D50 25mg IV push - DANIEL Cr 3.1 from 1.1 despite dialysis yesterday - repeat dialysis today - holding vancomycin - avoid nephrotoxic medications - f/u urine lytes - Dr. Amezcua following, appreciate recs ID: - extensive MRSA history - s/p vanc/cefepime - cefepime dc'd - vanc dc'd - meropenem started 09/19 - f/u repeat cultures: VRE in the blood - giving daptomycin - ID following, appreciate recs PPX: - on Eliquis for afib - Pepcid 20mg OGT FENLTD: - no standing fluids - continue to trend lytes - NPO - central line placed 09/18 RIJ - L femoral trialysis cath placed 09/19 for emergent dialysis access - Estrada in place since 09/18 Dispo: - transfer initiated to [facility] ICU, consent obtained from son & paperwork signed in chart - pending bed at [facility] ICU - patient discussed with ECMO service at [facility], cardiothoracic surgeon attending Dr. Santos - patient not an ECMO candidate due to renal failure - bed available, son notified at 1528. Planned to go to [place] ICU at [facility], Bed 1 Visit type - Emergency Visit Emergency Visit: Yes ED Registration Date: 09/13/19 Care time: The patient presented to the Emergency Department on the above date and was hospitalized for further evaluation of their emergent condition. - New Patient This patient is new to me today: Yes Date on this admission: 09/20/19 - Critical Care Critical Care patient: Yes Total Critical Care Time (in minutes): 60 Critical Care Statement: The care of this patient involved high complexity decision making to prevent further life threatening deterioration of the patient 's condition and/or to evaluate & treat vital organ system(s) failure or risk of failure. ATTENDING PHYSICIAN STATEMENT I saw and evaluated the patient. I reviewed the resident's note and discussed the case with the resident. I agree with the resident's findings and plan as documented. SUBJECTIVE: OBJECTIVE: ASSESSMENT AND PLAN:
[2019-09-20] MEDS: IPRATROPIUM BR 0.02% 0.5 MG/2.5 ML VIAL.NEB. NEB SCH ×4 (07:35→20:50)
[2019-09-20] MEDS: LEVALBUTEROL HCL 0.63 MG/3 ML VIAL.NEB. IH SCH ×3 (07:35→20:53)
[2019-09-20] MEDS ORDERED: MEROPENEM 500 MG VIAL (RESTRICTED TO ID) IVPB ONE (07:50)
[2019-09-20] MEDS ORDERED: DEXTROSE 5%-WATER 100 ML IVPB ONE (07:50)
[2019-09-20] MEDS: MEROPENEM 500 MG in DEXTROSE 5%-WATER 100 ML IVPB SCH (08:03)
[2019-09-20 08:21] LABS: ALBUMIN 1.7 g/dl (3.4-5.0); ALK PHOS 73 U/L (45-117); ANION GAP 11 MMOL/L (8-16); BILIRUBIN,TOTAL 0.3 mg/dL (0.2-1); BLOOD UREA NITROGEN 49.2 mg/dL (7-18); CHLORIDE 92 mmol/L (98-107); CO2 26 mmol/L (21-32); CREATININE 3.1 mg/dL (0.55-1.3); GLUCOSE,RANDOM 164 mg/dL (74-106); MAGNESIUM 2.2 mg/dL (1.8-2.4); POTASSIUM 5.2 mmol/L (3.5-5.1); SGOT/AST 36 U/L (15-37); SGPT/ALT 27 U/L (13-61); SODIUM 129 mmol/L (136-145); TOT PROT 4.8 g/dl (6.4-8.2)
[2019-09-20 08:27] LABS: CALCIUM 6.8 mg/dL (8.5-10.1); PHOSPHOROUS > 9.0 mg/dL (2.5-4.9)
[2019-09-20 08:55] LABS: ARTERIAL BLD GAS O2 SATURATION 98.1 % (95-98); ARTERIAL BLOOD GAS BASE EXCESS -1.6 meq/l (-2-2); ARTERIAL BLOOD GAS PCO2 58.4 mmHg (35-45); ARTERIAL BLOOD GAS PO2 131 mmHg (80-100); ARTERIAL BLOOD GAS pH 7.26 (7.35-7.45)
[2019-09-20 08:57] LABS: ALLENS TEST POSITIVE
[2019-09-20] MEDS ORDERED: PT OWN MED DRAWER 7, Y5N ONE ×4 (09:05→14:11)
[2019-09-20 09:07] LABS: BASO % 0.2 % (0-2.0); HEMATOCRIT 25.6 % (32.4-45.2); HEMOGLOBIN 7.6 GM/dL (10.7-15.3); LYMPH % 1.7 % (8-40); MCH 21.9 pg (25.7-33.7); MCHC 29.7 g/dl (32.0-36.0); MEAN CELL VOLUME 73.9 fl (80-96); MEAN PLT VOLUME 8.4 fl (7.5-11.1); MONO % 1.6 % (3.8-10.2); NEUT % 96.5 % (42.8-82.8); PLATELET COUNT 202 K/MM3 (134-434); RBC 3.46 M/mm3 (3.60-5.2); WHITE BLOOD COUNT 16.6 K/mm3 (4.0-10.0)
--- NOTE | 2019-09-20 09:24 | PN ---
Progress Note (short form) - Note Progress Note: intubated, sedated, paralyzed s/p HD yesterday fi02 90% minimal urine output Vital Signs Period Temp Pulse Resp BP Sys/Jordan Pulse Ox Last 24 Hr 94 F-100.7 F 72-112 18-36 90-151/52-80 95-100 cor-rrr lungs decreased bs at bases abd soft,nt ext no edema CBC, BMP 09/20/19 06:00 09/20/19 06:00 inflluenza A POSITIVE Microbiology 09/19/19 05:47 Blood - Peripheral Venous Blood Culture - Preliminary NO GROWTH OBTAINED AFTER 24 HOURS, INCUBATION TO CONTINUE FOR 4 DAYS. 09/19/19 05:47 Blood - Peripheral Venous Blood Culture - Preliminary NO GROWTH OBTAINED AFTER 24 HOURS, INCUBATION TO CONTINUE FOR 4 DAYS. 09/17/19 14:14 Blood - Peripheral Venous Blood Culture - Preliminary NO GROWTH OBTAINED AFTER 48 HOURS, INCUBATION TO CONTINUE FOR 3 DAYS. 09/17/19 18:45 Sputum - Expectorated Gram Stain - Final 09/17/19 18:45 Sputum - Expectorated Sputum Culture - Preliminary NORMAL RESPIRATORY MONA 09/17/19 14:08 Blood - Peripheral Venous Blood Culture - Preliminary Alpha Hemolytic Streptococcus 09/18/19 13:30 Urine For Antigen Detection Legionella Antigen - Final 09/18/19 13:30 Urine For Antigen Detection Streptococcus pneumoniae Antigen (M - Final 09/17/19 14:14 Serum Mycoplasma Antibody - Preliminary Laboratory Tests 09/20/19 06:00 Random Vancomycin 33.1 H* cxray improved LLL Infiltrate Current Medications Amitriptyline HCl (Elavil -) 75 mg PO [facility]-on hold Apixaban (Eliquis -) 5 mg PO BID [facility] Last Admin: 09/19/19 22:31 Dose: 5 mg Artificial Tears (Artificial Tears) 1 drop OU BID PRN PRN Reason: DRY EYES Atorvastatin Calcium (Lipitor -) 10 mg PO [facility] Last Admin: 09/19/19 22:17 Dose: 10 mg Budesonide/Formoterol Fumarate (Symbicort 160/4.5mcg -) 2 puff IH BID [facility] Last Admin: 09/19/19 22:30 Dose: Not Given Chlorhexidine Gluconate (Hibiclens For Decolonization -) 1 applic TP [facility] Last Admin: 01/30/20 22:18 Dose: 1 applic Cholecalciferol (Vitamin D3 -) 2,000 unit PO DAILY [facility] Last Admin: 09/19/19 10:12 Dose: 2,000 unit Cyanocobalamin (Vitamin B12 -) 1,000 mcg PO DAILY [facility] Last Admin: 09/19/19 10:43 Dose: 1,000 mcg Diltiazem HCl (Cardizem -) 60 mg GT Q6HPO [facility] Last Admin: 09/20/19 07:07 Dose: Not Given Diltiazem HCl (Cardizem Injection -) 10 mg IVPUSH Q4H PRN PRN Reason: TACHYCARDIA Diphenhydramine HCl (Benadryl -) 25 mg PO TID PRN PRN Reason: ALLERGIES Famotidine (Pepcid) 20 mg NGT DAILY [facility] Last Admin: 09/19/19 10:43 Dose: 20 mg Gabapentin (Neurontin Oral Liquid -) 400 mg GT TID [facility] Last Admin: 09/20/19 07:07 Dose: Not Given Glipizide (Glucotrol -) 2.5 mg PO DAILY@0700 [facility] Last Admin: 09/20/19 07:08 Dose: Not Given Guaifenesin (Robitussin -) 10 ml PO Q4H PRN PRN Reason: COUGH Hydroxyzine Pamoate (Vistaril -) 100 mg PO BID PRN PRN Reason: itching Propofol (Diprivan -) 1,000,000 mcg in 100 mls @ 2.273 mls/hr IVPB TITR [facility]; Protocol Last Admin: 09/20/19 07:10 Dose: 50 mcg/kg/min, 22.725 mls/hr Fentanyl 500 mcg/ Dextrose 100 mls @ 10 mls/hr IVPB TITR [facility] Last Admin: 09/20/19 07:13 Dose: 150 mcg/hr, 30 mls/hr Norepinephrine Bitartrate 4, (000 mcg/ Dextrose) 500 mls @ 37.5 mls/hr IV TITR [facility]; Protocol Last Titration: 09/20/19 09:02 Dose: 3 mcg/min, 22.5 mls/hr Sodium Chloride (Normal Saline -) 250 mls @ 3,000 mls/hr IV PRN PRN PRN Reason: Hypotension during Dialysis Stop: 09/20/19 16:09 Meropenem 500 mg/ Dextrose 100 mls @ 200 mls/hr IVPB BID@0800,2000 [facility] Last Admin: 09/20/19 08:03 Dose: 200 mls/hr Vecuronium [place] 50 mg/ (Dextrose) 250 mls @ 22.72 mls/hr IVPB TITR [facility] Last Infusion: 09/19/19 18:29 Dose: 0.5 mcg/kg/min, 11.36 mls/hr Midazolam HCl 100 mg/ Sodium (Chloride) 100 mls @ 10 mls/hr IVPB TITR [facility]; Protocol Last Admin: 09/20/19 07:11 Dose: 10 mg/hr, 10 mls/hr Insulin Detemir (Levemir Vial) 5 units SQ HS [facility] Last Admin: 09/20/19 00:05 Dose: Not Given Ipratropium [place] (Atrovent 0.02% Nebulizer -) 1 amp NEB RQID [facility] Last Admin: 09/20/19 07:35 Dose: 1 amp Levalbuterol HCl (Xopenex) 0.31 mg IH Q8H PRN PRN Reason: ASTHMA Levalbuterol HCl (Xopenex) 0.63 mg IH RTID [facility] Last Admin: 09/20/19 07:35 Dose: 0.63 mg Methylprednisolone Sodium Succinate (Solu-Medrol -) 60 mg IVPUSH Q6H-IV [facility] Last Admin: 09/20/19 02:19 Dose: 60 mg Mupirocin (Bactroban Ointment (For Decolonization) -) 1 applic NS BID [facility] Stop: 09/23/19 19:32 Last Admin: 09/19/19 22:18 Dose: 1 applic Non-Formulary Medication (Cyclosporine [Restasis]) 1 drop OU ASDIR [facility] Nystatin (Nystatin Oral Suspension -) 500,000 units PO Q6HPO [facility] Last Admin: 09/20/19 07:08 Dose: Not Given Oseltamivir Phosphate (Tamiflu -) 75 mg PO BID [facility] Stop: 09/22/19 15:59 Last Admin: 09/19/19 22:29 Dose: 75 mg Roflumilast (Daliresp) 500 mcg PO DAILY [facility] Last Admin: 09/19/19 10:43 Dose: 500 mcg Tiotropium [place] (Spiriva Respimat) 2 puff IH DAILY [facility] imp/reccd Respiratory failure/Intubated-suspect this is all influenza Influenza A bacteremia- ?strep- ID pending- repeat blood cultures all negative, ?contaminant acute renal failure- oliguric- s/p HD last night vanco trough 33 repeat in am switched to meropenem last night continue tamiflu for influenza history of MRSA copd neuropathy- elavil on hold - last given 09/17 pen/sulfa allergies overall prognosis guarded plan for transfer to tertiary care center yesterday unable to transfer yesterday due to tenuous medical condition being re-evaluated today, no bed available will repeat blood cultures today daptomycin one dose-d/w dr nash- not sure of significance of VRE in one bottle suspect transient bacteremia , doubt pneumonia on fentanyl and recent elavil, to d/c fentanyl today, given daptomycin for VRE, f/u cultures-repeated today will need to consider zyvox after fentanyl washout if repeat blood cultures are positive -concern for serotonin syndrome Problem List - Problems (1) Pneumonia Code(s): J18.9 - PNEUMONIA, UNSPECIFIED ORGANISM Qualifiers: Pneumonia type: due to unspecified organism Laterality: left Lung location: lower lobe of lung Qualified Code(s): J18.9 - Pneumonia, unspecified organism (2) COPD exacerbation Code(s): J44.1 - CHRONIC OBSTRUCTIVE PULMONARY DISEASE W (ACUTE) EXACERBATION (3) MRSA (methicillin resistant Staphylococcus aureus) colonization Code(s): Z22.322 - CARRIER OR SUSPECTED CARRIER OF METHICILLIN RESIS STAPH (4) Allergy to multiple antibiotics Code(s): Z88.1 - ALLERGY STATUS TO OTHER ANTIBIOTIC AGENTS STATUS
[2019-09-20] MEDS ORDERED: SODIUM CHLORIDE 250 ML IV PRN ×2 (09:41→12:45)
[2019-09-20] MEDS: MUPIROCIN 2% TOPICAL OINTMENT FOR DECOLONIZATION NS SCH (10:41)
[2019-09-20] MEDS: BUDESONIDE/FORMETEROL FUMARATE 160/4.5 mcg INHALER IH SCH (10:41)
[2019-09-20] MEDS: OSELTAMIVIR PHOSPHATE 75 MG CAPSULE PO SCH (10:46)
[2019-09-20] MEDS: CHOLECALCIFEROL (VIT D3) 1,000 UNIT (25 MCG) TABLET PO SCH (10:46)
[2019-09-20] MEDS: FAMOTIDINE 40 MG/5 ML ORAL SUSPENSION NGT SCH (10:47)
[2019-09-20] MEDS: APIXABAN 5 MG TABLET PO SCH (10:47)
[2019-09-20] MEDS: ROFLUMILAST 500 MCG TABLET PO SCH (10:48)
[2019-09-20] MEDS: CYANOCOBALAMIN 1,000 MCG TABLET (FP) PO SCH (10:48)
--- NOTE | 2019-09-20 11:01 | PN ---
Teaching Attending Note Name of Resident: Sara De Dios ATTENDING PHYSICIAN STATEMENT I saw and evaluated the patient. I reviewed the resident's note and discussed the case with the resident. I agree with the resident's findings and plan as documented. SUBJECTIVE: Patient seen and examined in the ICU. Remains intubated and sedated on lung protective ventilation. Pplat: 31 100% FiO2 and PEEP 20. NE @ 5 mcq for hemodynamic support. There is some evidence of breath stacking and vent settings were adjusted. Paralyzed: no twitches noted Intake & Output 09/17/19 09/18/19 09/19/19 09/20/19 23:59 23:59 23:59 23:59 Intake Total 1220 1253 2981 771 Output Total 900 600 50 Balance 5751 914 8184 721 Last Vital Signs Temp Pulse Resp BP Pulse Ox 99.8 F H 95 H 36 H 113/61 95 09/20/19 07:00 09/20/19 09:02 09/20/19 08:34 09/20/19 09:02 09/20/19 08:34 Active Medications Albumin Human (Albumin Human 25%) 12.5 gm IVPB Q30M [facility] Amitriptyline HCl (Elavil -) 75 mg PO HS [facility] Apixaban (Eliquis -) 5 mg PO BID [facility] Last Admin: 09/20/19 10:47 Dose: 5 mg Artificial Tears (Artificial Tears) 1 drop OU BID PRN PRN Reason: DRY EYES Atorvastatin Calcium (Lipitor -) 10 mg PO HS [facility] Last Admin: 09/19/19 22:17 Dose: 10 mg Budesonide/Formoterol Fumarate (Symbicort 160/4.5mcg -) 2 puff IH BID [facility] Last Admin: 09/20/19 10:41 Dose: Not Given Chlorhexidine Gluconate (Hibiclens For Decolonization -) 1 applic TP HS [facility] Last Admin: 09/19/19 22:18 Dose: 1 applic Cholecalciferol (Vitamin D3 -) 2,000 unit PO DAILY [facility] Last Admin: 09/20/19 10:46 Dose: 2,000 unit Cyanocobalamin (Vitamin B12 -) 1,000 mcg PO DAILY [facility] Last Admin: 09/20/19 10:48 Dose: 1,000 mcg Diltiazem HCl (Cardizem -) 60 mg GT Q6HPO [facility] Last Admin: 09/20/19 07:07 Dose: Not Given Diltiazem HCl (Cardizem Injection -) 10 mg IVPUSH Q4H PRN PRN Reason: TACHYCARDIA Diphenhydramine HCl (Benadryl -) 25 mg PO TID PRN PRN Reason: ALLERGIES Famotidine (Pepcid) 20 mg NGT DAILY [facility] Last Admin: 09/20/19 10:47 Dose: 20 mg Gabapentin (Neurontin Oral Liquid -) 400 mg GT TID [facility] Last Admin: 09/20/19 07:07 Dose: Not Given Glipizide (Glucotrol -) 2.5 mg PO DAILY@0700 [facility] Last Admin: 09/20/19 07:08 Dose: Not Given Guaifenesin (Robitussin -) 10 ml PO Q4H PRN PRN Reason: COUGH Hydroxyzine Pamoate (Vistaril -) 100 mg PO BID PRN PRN Reason: itching Propofol (Diprivan -) 1,000,000 mcg in 100 mls @ 2.273 mls/hr IVPB TITR [facility]; Protocol Last Admin: 09/20/19 09:36 Dose: 50 mcg/kg/min, 22.725 mls/hr Norepinephrine Bitartrate 4, (000 mcg/ Dextrose) 500 mls @ 37.5 mls/hr IV TITR [facility]; Protocol Last Titration: 09/20/19 09:02 Dose: 3 mcg/min, 22.5 mls/hr Meropenem 500 mg/ Dextrose 100 mls @ 200 mls/hr IVPB BID@0800,2000 [facility] Last Admin: 09/20/19 08:03 Dose: 200 mls/hr Vecuronium [place] 50 mg/ (Dextrose) 250 mls @ 22.72 mls/hr IVPB TITR [facility] Last Infusion: 09/20/19 10:37 Dose: 0 mcg/kg/min, 0 mls/hr Midazolam HCl 100 mg/ Sodium (Chloride) 100 mls @ 10 mls/hr IVPB TITR [facility]; Protocol Last Admin: 09/20/19 07:11 Dose: 10 mg/hr, 10 mls/hr Sodium Chloride (Normal Saline -) 250 mls @ 3,000 mls/hr IV PRN PRN PRN Reason: Hypotension during Dialysis Stop: 09/21/19 09:43 Daptomycin 500 mg/ Sodium (Chloride) 50 mls @ 50 mls/hr IVPB ONCE ONE; Protocol Stop: 09/20/19 10:57 Insulin Detemir (Levemir Vial) 5 units SQ HS [facility] Last Admin: 09/20/19 00:05 Dose: Not Given Ipratropium [place] (Atrovent 0.02% Nebulizer -) 1 amp NEB RQID [facility] Last Admin: 09/20/19 07:35 Dose: 1 amp Levalbuterol HCl (Xopenex) 0.31 mg IH Q8H PRN PRN Reason: ASTHMA Levalbuterol HCl (Xopenex) 0.63 mg IH RTID [facility] Last Admin: 09/20/19 07:35 Dose: 0.63 mg Methylprednisolone Sodium Succinate (Solu-Medrol -) 60 mg IVPUSH Q6H-IV [facility] Last Admin: 09/20/19 09:36 Dose: 60 mg Mupirocin (Bactroban Ointment (For Decolonization) -) 1 applic NS BID [facility] Stop: 09/23/19 19:32 Last Admin: 09/20/19 10:41 Dose: 1 applic Non-Formulary Medication (Cyclosporine [Restasis]) 1 drop OU ASDIR [facility] Nystatin (Nystatin Oral Suspension -) 500,000 units PO Q6HPO [facility] Last Admin: 09/20/19 07:08 Dose: Not Given Oseltamivir Phosphate (Tamiflu -) 75 mg PO BID [facility] Stop: 09/22/19 15:59 Last Admin: 09/20/19 10:46 Dose: 75 mg Roflumilast (Daliresp) 500 mcg PO DAILY [facility] Last Admin: 09/20/19 10:48 Dose: 500 mcg Tiotropium [place] (Spiriva Respimat) 2 puff IH DAILY [facility] Gen: Intubated and sedated Heart: RRR Lung: Vented, bilateral rhonchi and diffuse expiratory wheezing Abd: soft, nontender Ext: no edema Laboratory Results - last 24 hr 09/19/19 09/19/19 09/19/19 05:47 07:45 12:30 WBC RBC Hgb Hct MCV MCH MCHC RDW Plt Count MPV Absolute Neuts (auto) Neutrophils % Neutrophils % (Manual) 90.7 H 90.8 H Band Neutrophils % 7.5 7.2 Lymphocytes % Lymphocytes % (Manual) 0.9 L 0.0 L Monocytes % Monocytes % (Manual) 0 L D 0 L Eosinophils % Eosinophils % (Manual) 0.9 D 0.0 Basophils % Basophils % (Manual) 0.0 0.0 Myelocytes % (Man) 0 0 Promyelocytes % (Man) 0 0 Blast Cells % (Manual) 0 0 Nucleated RBC % 0 1 H Metamyelocytes 0 0 Hypochromia 0 0 Platelet Estimate Normal Normal Platelet Comment Present Polychromasia 1+ 1+ Poikilocytosis 2+ 2+ Anisocytosis 1+ 1+ Microcytosis 1+ 1+ Macrocytosis 0 0 Spherocytes 1+ 1+ Tear Drop Cells 1+ Ovalocytes 1+ 1+ Mark Cells 2+ Schistocytes 1+ Anticoagulation Therapy Puncture Site ABG pH ABG pCO2 at Pt Temp ABG pO2 at Pt Temp ABG HCO3 ABG O2 Sat (Measured) ABG O2 Content ABG Base Excess Foreign Test O2 Delivery Device Oxygen Flow Rate Vent Mode Vent Rate Mechanical Rate PEEP Pressure Support Vent Sodium 128 L Potassium 6.3 H* Chloride 93 L Carbon Dioxide 23 Anion Gap 12 BUN 61.1 H Creatinine 2.8 H Est GFR (CKD-EPI)AfAm 20.57 Est GFR (CKD-EPI)NonAf 17.75 POC Glucometer Random Glucose 287 H Calcium 7.4 L Phosphorus Magnesium Total Bilirubin AST ALT Alkaline Phosphatase Total Protein Albumin Urine Color Urine Appearance Urine pH Ur Specific Brady Urine Protein Urine Glucose (UA) Urine Ketones Urine Blood Urine Nitrite Urine Bilirubin Urine Urobilinogen Ur Leukocyte Esterase Urine WBC (Auto) Urine RBC (Auto) Urine Casts (Auto) U Pathogenic Cast Auto U Epithel Cells (Auto) Urine Bacteria (Auto) Ur Random Creatinine Ur Random Sodium Ur Random Potassium Ur Random Chloride Random Vancomycin 09/19/19 09/19/19 09/19/19 13:55 14:50 14:50 WBC RBC Hgb Hct MCV MCH MCHC RDW Plt Count MPV Absolute Neuts (auto) Neutrophils % Neutrophils % (Manual) Band Neutrophils % Lymphocytes % Lymphocytes % (Manual) Monocytes % Monocytes % (Manual) Eosinophils % Eosinophils % (Manual) Basophils % Basophils % (Manual) Myelocytes % (Man) Promyelocytes % (Man) Blast Cells % (Manual) Nucleated RBC % Metamyelocytes Hypochromia Platelet Estimate Platelet Comment Polychromasia Poikilocytosis Anisocytosis Microcytosis Macrocytosis Spherocytes Tear Drop Cells Ovalocytes Mark Cells Schistocytes Anticoagulation Therapy No Result Required. Puncture Site Right radial ABG pH 7.09 L* ABG pCO2 at Pt Temp 78.9 H* ABG pO2 at Pt Temp 159 H ABG HCO3 22.9 ABG O2 Sat (Measured) 98.4 H ABG O2 Content 12.2 ABG Base Excess -7.2 L Foreign Test Positive O2 Delivery Device No Result Required. Oxygen Flow Rate 100 Vent Mode No Result Required. Vent Rate 36 Mechanical Rate No Result Required. PEEP Pressure Support Vent No Result Required. Sodium Potassium Chloride Carbon Dioxide Anion Gap BUN Creatinine Est GFR (CKD-EPI)AfAm Est GFR (CKD-EPI)NonAf POC Glucometer Random Glucose Calcium Phosphorus Magnesium Total Bilirubin AST ALT Alkaline Phosphatase Total Protein Albumin Urine Color Urine Appearance Urine pH Ur Specific [place] Urine Protein Urine Glucose (UA) Urine Ketones Urine Blood Urine Nitrite Urine Bilirubin Urine Urobilinogen Ur Leukocyte Esterase Urine WBC (Auto) Urine RBC (Auto) Urine Casts (Auto) U Pathogenic Cast Auto U Epithel Cells (Auto) Urine Bacteria (Auto) Ur Random Creatinine 56.0 Ur Random Sodium 26 L Ur Random Potassium 34.9 Ur Random Chloride 13 L Random Vancomycin 09/19/19 09/19/19 09/19/19 14:50 15:00 16:20 WBC RBC Hgb Hct MCV MCH MCHC RDW Plt Count MPV Absolute Neuts (auto) Neutrophils % Neutrophils % (Manual) Band Neutrophils % Lymphocytes % Lymphocytes % (Manual) Monocytes % Monocytes % (Manual) Eosinophils % Eosinophils % (Manual) Basophils % Basophils % (Manual) Myelocytes % (Man) Promyelocytes % (Man) Blast Cells % (Manual) Nucleated RBC % Metamyelocytes Hypochromia Platelet Estimate Platelet Comment Polychromasia Poikilocytosis Anisocytosis Microcytosis Macrocytosis Spherocytes Tear Drop Cells Ovalocytes [place] Cells Schistocytes Anticoagulation Therapy Puncture Site ABG pH ABG pCO2 at Pt Temp ABG pO2 at Pt Temp ABG HCO3 ABG O2 Sat (Measured) ABG O2 Content ABG Base Excess Foreign Test O2 Delivery Device Oxygen Flow Rate Vent Mode Vent Rate Mechanical Rate PEEP Pressure Support Vent Sodium 127 L Potassium 5.9 H Chloride 92 L Carbon Dioxide 22 Anion Gap 14 BUN 62.8 H Creatinine 2.8 H Est GFR (CKD-EPI)AfAm 20.57 Est GFR (CKD-EPI)NonAf 17.75 POC Glucometer Random Glucose 338 H Calcium 8.0 L Phosphorus Magnesium Total Bilirubin 0.5 AST 38 H ALT 27 Alkaline Phosphatase 77 Total Protein 4.9 L Albumin 1.7 L Urine Color Yellow Urine Appearance Cloudy Urine pH 5.0 Ur Specific Brady 1.020 Urine Protein 1+ H Urine Glucose (UA) 1+ H Urine Ketones Negative Urine Blood 3+ H Urine Nitrite Negative Urine Bilirubin Negative Urine Urobilinogen 0.2 Ur Leukocyte Esterase Negative Urine WBC (Auto) 8 Urine RBC (Auto) 37.1 Urine Casts (Auto) 24 U Pathogenic Cast Auto U Epithel Cells (Auto) 9.0 Urine Bacteria (Auto) 1.2 Ur Random Creatinine Ur Random Sodium Ur Random Potassium Ur Random Chloride Random Vancomycin 30.8 H* 09/19/19 09/19/19 09/19/19 17:55 17:55 17:55 WBC 19.2 H RBC 3.69 Hgb 8.2 L Hct 27.8 L MCV 75.3 L MCH 22.2 L MCHC 29.4 L RDW 18.2 H Plt Count 230 D MPV 7.6 Absolute Neuts (auto) 18.2 H Neutrophils % 94.8 H Neutrophils % (Manual) 92.1 H Band Neutrophils % 2.9 Lymphocytes % 2.0 L D Lymphocytes % (Manual) 2.0 L D Monocytes % 1.9 L Monocytes % (Manual) 2 L D Eosinophils % 0.0 D Eosinophils % (Manual) 0.0 Basophils % 1.3 D Basophils % (Manual) 0.0 Myelocytes % (Man) 0 Promyelocytes % (Man) 0 Blast Cells % (Manual) 0 Nucleated RBC % 2 H Metamyelocytes 1 D Hypochromia 0 Platelet Estimate Normal Platelet Comment Polychromasia 0 Poikilocytosis 2+ Anisocytosis 2+ Microcytosis 2+ Macrocytosis 0 Spherocytes Tear Drop Cells 1+ Ovalocytes 1+ Mark Cells Schistocytes 1+ Anticoagulation Therapy Puncture Site ABG pH ABG pCO2 at Pt Temp ABG pO2 at Pt Temp ABG HCO3 ABG O2 Sat (Measured) ABG O2 Content ABG Base Excess Foreign Test O2 Delivery Device Oxygen Flow Rate Vent Mode Vent Rate Mechanical Rate PEEP Pressure Support Vent Sodium 137 135 L Potassium 3.7 3.8 Chloride 98 97 L Carbon Dioxide 32 30 Anion Gap 8 8 BUN 27.1 H 28.6 H Creatinine 1.4 H 1.5 H Est GFR (CKD-EPI)AfAm 47.55 43.74 Est GFR (CKD-EPI)NonAf 41.02 37.74 POC Glucometer Random Glucose 179 H 177 H Calcium 7.2 L 7.2 L Phosphorus 5.6 H Magnesium 2.2 Total Bilirubin 0.3 AST 39 H ALT 30 Alkaline Phosphatase 84 Total Protein 5.1 L Albumin 1.8 L Urine Color Urine Appearance Urine pH Ur Specific [place] Urine Protein Urine Glucose (UA) Urine Ketones Urine Blood Urine Nitrite Urine Bilirubin Urine Urobilinogen Ur Leukocyte Esterase Urine WBC (Auto) Urine RBC (Auto) Urine Casts (Auto) U Pathogenic Cast Auto U Epithel Cells (Auto) Urine Bacteria (Auto) Ur Random Creatinine Ur Random Sodium Ur Random Potassium Ur Random Chloride Random Vancomycin 09/19/19 09/19/19 09/19/19 18:40 20:22 23:17 WBC RBC Hgb Hct MCV MCH MCHC RDW Plt Count MPV Absolute Neuts (auto) Neutrophils % Neutrophils % (Manual) Band Neutrophils % Lymphocytes % Lymphocytes % (Manual) Monocytes % Monocytes % (Manual) Eosinophils % Eosinophils % (Manual) Basophils % Basophils % (Manual) Myelocytes % (Man) Promyelocytes % (Man) Blast Cells % (Manual) Nucleated RBC % Metamyelocytes Hypochromia Platelet Estimate Platelet Comment Polychromasia Poikilocytosis Anisocytosis Microcytosis Macrocytosis Spherocytes Tear Drop Cells Ovalocytes Mark Cells Schistocytes Anticoagulation Therapy No Result Required. Puncture Site Right radial ABG pH 7.20 L ABG pCO2 at Pt Temp 75.1 H* ABG pO2 at Pt Temp 86.2 ABG HCO3 28.0 H ABG O2 Sat (Measured) 94.6 L ABG O2 Content 10.9 ABG Base Excess -0.4 Foreign Test Positive O2 Delivery Device No Result Required. Oxygen Flow Rate 100 Vent Mode No Result Required. Vent Rate 36 Mechanical Rate No Result Required. PEEP 20.0 Pressure Support Vent 375 Sodium 137 Potassium 3.5 Chloride 99 Carbon Dioxide 32 Anion Gap 6 L BUN 19.0 H Creatinine 1.1 Est GFR (CKD-EPI)AfAm 63.64 Est GFR (CKD-EPI)NonAf 54.91 POC Glucometer 208 Random Glucose 180 H Calcium 7.0 L Phosphorus Magnesium Total Bilirubin AST ALT Alkaline Phosphatase Total Protein Albumin Urine Color Urine Appearance Urine pH Ur Specific [place] Urine Protein Urine Glucose (UA) Urine Ketones Urine Blood Urine Nitrite Urine Bilirubin Urine Urobilinogen Ur Leukocyte Esterase Urine WBC (Auto) Urine RBC (Auto) Urine Casts (Auto) U Pathogenic Cast Auto U Epithel Cells (Auto) Urine Bacteria (Auto) Ur Random Creatinine Ur Random Sodium Ur Random Potassium Ur Random Chloride Random Vancomycin 09/20/19 09/20/19 09/20/19 06:00 06:00 06:00 WBC 16.6 H RBC 3.46 L Hgb 7.6 L Hct 25.6 L MCV 73.9 L MCH 21.9 L MCHC 29.7 L RDW 18.0 H Plt Count 202 MPV 8.4 D Absolute Neuts (auto) 16.0 H Neutrophils % 96.5 H Neutrophils % (Manual) Band Neutrophils % Lymphocytes % 1.7 L Lymphocytes % (Manual) Monocytes % 1.6 L Monocytes % (Manual) Eosinophils % 0.0 Eosinophils % (Manual) Basophils % 0.2 Basophils % (Manual) Myelocytes % (Man) Promyelocytes % (Man) Blast Cells % (Manual) Nucleated RBC % 0 Metamyelocytes Hypochromia Platelet Estimate Platelet Comment Polychromasia Poikilocytosis Anisocytosis Microcytosis Macrocytosis Spherocytes Tear Drop Cells Ovalocytes Mark Cells Schistocytes Anticoagulation Therapy Puncture Site ABG pH ABG pCO2 at Pt Temp ABG pO2 at Pt Temp ABG HCO3 ABG O2 Sat (Measured) ABG O2 Content ABG Base Excess Foreign Test O2 Delivery Device Oxygen Flow Rate Vent Mode Vent Rate Mechanical Rate PEEP Pressure Support Vent Sodium 129 L Potassium 5.2 H Chloride 92 L Carbon Dioxide 26 Anion Gap 11 BUN 49.2 H Creatinine 3.1 H Est GFR (CKD-EPI)AfAm 18.19 Est GFR (CKD-EPI)NonAf 15.69 POC Glucometer Random Glucose 164 H Calcium 6.8 L* Phosphorus > 9.0 H* Magnesium 2.2 Total Bilirubin 0.3 AST 36 ALT 27 Alkaline Phosphatase 73 Total Protein 4.8 L Albumin 1.7 L Urine Color Urine Appearance Urine pH Ur Specific [place] Urine Protein Urine Glucose (UA) Urine Ketones Urine Blood Urine Nitrite Urine Bilirubin Urine Urobilinogen Ur Leukocyte Esterase Urine WBC (Auto) Urine RBC (Auto) Urine Casts (Auto) U Pathogenic Cast Auto U Epithel Cells (Auto) Urine Bacteria (Auto) Ur Random Creatinine Ur Random Sodium Ur Random Potassium Ur Random Chloride Random Vancomycin 33.1 H* 09/20/19 09/20/19 06:34 08:15 WBC RBC Hgb Hct MCV MCH MCHC RDW Plt Count MPV Absolute Neuts (auto) Neutrophils % Neutrophils % (Manual) Band Neutrophils % Lymphocytes % Lymphocytes % (Manual) Monocytes % Monocytes % (Manual) Eosinophils % Eosinophils % (Manual) Basophils % Basophils % (Manual) Myelocytes % (Man) Promyelocytes % (Man) Blast Cells % (Manual) Nucleated RBC % Metamyelocytes Hypochromia Platelet Estimate Platelet Comment Polychromasia Poikilocytosis Anisocytosis Microcytosis Macrocytosis Spherocytes Tear Drop Cells Ovalocytes Mark Cells Schistocytes Anticoagulation Therapy No Result Required. Puncture Site Right radial ABG pH 7.26 L ABG pCO2 at Pt Temp 58.4 H ABG pO2 at Pt Temp 131 H ABG HCO3 25.2 ABG O2 Sat (Measured) 98.1 H ABG O2 Content 11.0 ABG Base Excess -1.6 Foreign Test Positive O2 Delivery Device No Result Required. Oxygen Flow Rate Yes Vent Mode No Result Required. Vent Rate No Result Required. Mechanical Rate No Result Required. PEEP Pressure Support Vent No Result Required. Sodium Potassium Chloride Carbon Dioxide Anion Gap BUN Creatinine Est GFR (CKD-EPI)AfAm Est GFR (CKD-EPI)NonAf POC Glucometer 160 Random Glucose Calcium Phosphorus Magnesium Total Bilirubin AST ALT Alkaline Phosphatase Total Protein Albumin Urine Color Urine Appearance Urine pH Ur Specific [place] Urine Protein Urine Glucose (UA) Urine Ketones Urine Blood Urine Nitrite Urine Bilirubin Urine Urobilinogen Ur Leukocyte Esterase Urine WBC (Auto) Urine RBC (Auto) Urine Casts (Auto) U Pathogenic Cast Auto U Epithel Cells (Auto) Urine Bacteria (Auto) Ur Random Creatinine Ur Random Sodium Ur Random Potassium Ur Random Chloride Random Vancomycin A/P Acute Respiratory Failure R/O early ARDS Acute COPD Exacerbation Pneumonia Atrial Fibrillation h/o CVA HTN DM Hyperlipidemia Influenza A Septic Shock - Pressors to maintain MAP - Lung protective ventilation: settings were adjusted to alleviate Breath Stacking - Follow ABG - A line to be inserted - IV Medrol - inhaled bronchodilators standing and PRN - ABX per ID - Tamiflu BID - rate control - continue anticoagulation - glucose control while on systemic steroids - Requires ICU monitoring for mechanical ventilation Dr Fang Critical care time spent in reviewing chart, evaluating patient and formulating plan - 36 minutes.
[2019-09-20 12:36] LABS: ANISOCYTOSIS 1+; MACROCYTOSIS 0; PLATELET ESTIMATE NORMAL
--- NOTE | 2019-09-20 12:47 | PN ---
Progress Note (short form) - Note Progress Note: pt seen/ examined chart reviewed Intubated/ sedated / Paralized Had dialysis yesterday and scheduled for today Vital Signs Temp 97.6 F 09/20/19 12:00 Pulse 102 H 09/20/19 12:23 Resp 32 H 09/20/19 12:00 BP 97/51 L 09/20/19 12:23 Pulse Ox 95 09/20/19 08:34 Intake & Output 09/19/19 09/20/19 09/20/19 23:59 11:59 23:59 Intake Total 2082 771 Output Total 500 50 Balance 1582 721 Intake: IV 1762 771 DIPRIVAN - 1,000,000 mcg 264 154 In 100 ml @ 5 MCG/KG/MIN 2.273 mls/hr IVPB TITR [facility] Rx#:[id number] Levophed - 4,000 Mcg In 560 260 D5w - 496 ml @ 5 MCG/MIN 37.5 mls/hr IV TITR [facility] Rx#:[id number] MIDAZOLAM 100MG/100ML-0.9 120 %NACL 100 mg In 100 ml @ 1 MG/HR 1 mls/hr IVPB TITR [facility] Rx#:[id number] Saline Lock 30 Sublimaze Injection - 500 360 210 Mcg In D5w - 90 ml @ 50 MCG/HR 10 mls/hr IVPB TITR [facility] Rx#:[id number] Vecuronium [place] 50 mg 388 77 In D5w - 250 ml @ 1 MCG/ KG/MIN 22.72 mls/hr IVPB TITR [facility] Rx#:[id number] Versed - 100 mg In Normal 40 70 Saline - 100 ml @ 10 MG/ HR 10 mls/hr IVPB TITR [facility] Rx#:[id number] IVPB 200 Tube Irrigant 120 Output: Urine 200 50 Coleman 200 50 Fluid Removed, 300 Hemodialysis Other: Voiding Method Indwelling Catheter Indwelling Catheter # Unmeasured Voids Coleman 0 Bowel Movement No Body Mass Index (BMI) 29.5 Active Medications Albumin Human (Albumin Human 25%) 12.5 gm IVPB Q30M [facility] Stop: 09/20/19 13:01 Amitriptyline HCl (Elavil -) 75 mg PO HS [facility] Apixaban (Eliquis -) 5 mg PO BID [facility] Last Admin: 09/20/19 10:47 Dose: 5 mg Artificial Tears (Artificial Tears) 1 drop OU BID PRN PRN Reason: DRY EYES Atorvastatin Calcium (Lipitor -) 10 mg PO [facility] Last Admin: 09/19/19 22:17 Dose: 10 mg Budesonide/Formoterol Fumarate (Symbicort 160/4.5mcg -) 2 puff IH BID [facility] Last Admin: 09/20/19 10:41 Dose: Not Given Chlorhexidine Gluconate (Hibiclens For Decolonization -) 1 applic TP [facility] Last Admin: 09/19/19 22:18 Dose: 1 applic Cholecalciferol (Vitamin D3 -) 2,000 unit PO DAILY [facility] Last Admin: 09/20/19 10:46 Dose: 2,000 unit Cyanocobalamin (Vitamin B12 -) 1,000 mcg PO DAILY [facility] Last Admin: 09/20/19 10:48 Dose: 1,000 mcg Diltiazem HCl (Cardizem -) 60 mg GT Q6HPO [facility] Last Admin: 09/20/19 07:07 Dose: Not Given Diltiazem HCl (Cardizem Injection -) 10 mg IVPUSH Q4H PRN PRN Reason: TACHYCARDIA Diphenhydramine HCl (Benadryl -) 25 mg PO TID PRN PRN Reason: ALLERGIES Famotidine (Pepcid) 20 mg NGT DAILY [facility] Last Admin: 09/20/19 10:47 Dose: 20 mg Gabapentin (Neurontin Oral Liquid -) 400 mg GT TID [facility] Last Admin: 09/20/19 07:07 Dose: Not Given Glipizide (Glucotrol -) 2.5 mg PO DAILY@0700 [facility] Last Admin: 09/20/19 07:08 Dose: Not Given Guaifenesin (Robitussin -) 10 ml PO Q4H PRN PRN Reason: COUGH Hydroxyzine Pamoate (Vistaril -) 100 mg PO BID PRN PRN Reason: itching Propofol (Diprivan -) 1,000,000 mcg in 100 mls @ 2.273 mls/hr IVPB TITR [facility]; Protocol Last Admin: 09/20/19 09:36 Dose: 50 mcg/kg/min, 22.725 mls/hr Norepinephrine Bitartrate 4, (000 mcg/ Dextrose) 500 mls @ 37.5 mls/hr IV TITR [facility]; Protocol Last Titration: 09/20/19 12:23 Dose: 4 mcg/min, 30 mls/hr Meropenem 500 mg/ Dextrose 100 mls @ 200 mls/hr IVPB BID@0800,2000 [facility] Last Admin: 09/20/19 08:03 Dose: 200 mls/hr Vecuronium [place] 50 mg/ (Dextrose) 250 mls @ 22.72 mls/hr IVPB TITR [facility] Last Infusion: 09/20/19 11:24 Dose: 0.25 mcg/kg/min, 5.68 mls/hr Midazolam HCl 100 mg/ Sodium (Chloride) 100 mls @ 10 mls/hr IVPB TITR [facility]; Protocol Last Admin: 09/20/19 07:11 Dose: 10 mg/hr, 10 mls/hr Sodium Chloride (Normal Saline -) 250 mls @ 3,000 mls/hr IV PRN PRN PRN Reason: Hypotension during Dialysis Stop: 09/21/19 12:44 Daptomycin 500 mg/ Sodium (Chloride) 50 mls @ 50 mls/hr IVPB ONCE ONE; Protocol Stop: 09/20/19 13:59 Insulin Detemir (Levemir Vial) 5 units SQ HS [facility] Last Admin: 09/20/19 00:05 Dose: Not Given Ipratropium [place] (Atrovent 0.02% Nebulizer -) 1 amp NEB RQID [facility] Last Admin: 09/20/19 11:15 Dose: 1 amp Levalbuterol HCl (Xopenex) 0.31 mg IH Q8H PRN PRN Reason: ASTHMA Levalbuterol HCl (Xopenex) 0.63 mg IH RTID [facility] Last Admin: 09/20/19 07:35 Dose: 0.63 mg Methylprednisolone Sodium Succinate (Solu-Medrol -) 60 mg IVPUSH Q6H-IV [facility] Last Admin: 09/20/19 09:36 Dose: 60 mg Mupirocin (Bactroban Ointment (For Decolonization) -) 1 applic NS BID [facility] Stop: 09/23/19 19:32 Last Admin: 09/20/19 10:41 Dose: 1 applic Non-Formulary Medication (Cyclosporine [Restasis]) 1 drop OU ASDIR [facility] Nystatin (Nystatin Oral Suspension -) 500,000 units PO Q6HPO [facility] Last Admin: 09/20/19 12:23 Dose: Not Given Oseltamivir Phosphate (Tamiflu -) 75 mg PO BID [facility] Stop: 09/22/19 15:59 Last Admin: 09/20/19 10:46 Dose: 75 mg Roflumilast (Daliresp) 500 mcg PO DAILY [facility] Last Admin: 09/20/19 10:48 Dose: 500 mcg Tiotropium [place] (Spiriva Respimat) 2 puff IH DAILY [facility] CBC, BMP 09/20/19 06:00 09/20/19 06:00 Abnormal Lab Results 09/19/19 09/19/19 09/19/19 12:30 13:55 14:50 WBC RBC Hgb Hct MCV MCH MCHC RDW Absolute Neuts (auto) Neutrophils % Neutrophils % (Manual) Lymphocytes % Lymphocytes % (Manual) Monocytes % Monocytes % (Manual) Nucleated RBC % ABG pH 7.09 L* ABG pCO2 at Pt Temp 78.9 H* ABG pO2 at Pt Temp 159 H ABG HCO3 ABG O2 Sat (Measured) 98.4 H ABG Base Excess -7.2 L Sodium 128 L Potassium 6.3 H* Chloride 93 L Anion Gap BUN 61.1 H Creatinine 2.8 H Random Glucose 287 H Calcium 7.4 L Phosphorus AST Total Protein Albumin Urine Protein Urine Glucose (UA) Urine Blood Ur Random Sodium 26 L Ur Random Chloride 13 L Random Vancomycin 09/19/19 09/19/19 09/19/19 14:50 15:00 16:20 WBC RBC Hgb Hct MCV MCH MCHC RDW Absolute Neuts (auto) Neutrophils % Neutrophils % (Manual) Lymphocytes % Lymphocytes % (Manual) Monocytes % Monocytes % (Manual) Nucleated RBC % ABG pH ABG pCO2 at Pt Temp ABG pO2 at Pt Temp ABG HCO3 ABG O2 Sat (Measured) ABG Base Excess Sodium 127 L Potassium 5.9 H Chloride 92 L Anion Gap BUN 62.8 H Creatinine 2.8 H Random Glucose 338 H Calcium 8.0 L Phosphorus AST 38 H Total Protein 4.9 L Albumin 1.7 L Urine Protein 1+ H Urine Glucose (UA) 1+ H Urine Blood 3+ H Ur Random Sodium Ur Random Chloride Random Vancomycin 30.8 H* 09/19/19 09/19/19 09/19/19 17:55 17:55 17:55 WBC 19.2 H RBC Hgb 8.2 L Hct 27.8 L MCV 75.3 L MCH 22.2 L MCHC 29.4 L RDW 18.2 H Absolute Neuts (auto) 18.2 H Neutrophils % 94.8 H Neutrophils % (Manual) 92.1 H Lymphocytes % 2.0 L D Lymphocytes % (Manual) 2.0 L D Monocytes % 1.9 L Monocytes % (Manual) 2 L D Nucleated RBC % 2 H ABG pH ABG pCO2 at Pt Temp ABG pO2 at Pt Temp ABG HCO3 ABG O2 Sat (Measured) ABG Base Excess Sodium 135 L Potassium Chloride 97 L Anion Gap BUN 27.1 H 28.6 H Creatinine 1.4 H 1.5 H Random Glucose 179 H 177 H Calcium 7.2 L 7.2 L Phosphorus 5.6 H AST 39 H Total Protein 5.1 L Albumin 1.8 L Urine Protein Urine Glucose (UA) Urine Blood Ur Random Sodium Ur Random Chloride Random Vancomycin 09/19/19 09/19/19 09/20/19 18:40 20:22 06:00 WBC RBC Hgb Hct MCV MCH MCHC RDW Absolute Neuts (auto) Neutrophils % Neutrophils % (Manual) Lymphocytes % Lymphocytes % (Manual) Monocytes % Monocytes % (Manual) Nucleated RBC % ABG pH 7.20 L ABG pCO2 at Pt Temp 75.1 H* ABG pO2 at Pt Temp ABG HCO3 28.0 H ABG O2 Sat (Measured) 94.6 L ABG Base Excess Sodium Potassium Chloride Anion Gap 6 L BUN 19.0 H Creatinine Random Glucose 180 H Calcium 7.0 L Phosphorus AST Total Protein Albumin Urine Protein Urine Glucose (UA) Urine Blood Ur Random Sodium Ur Random Chloride Random Vancomycin 33.1 H* 09/20/19 09/20/19 09/20/19 06:00 06:00 08:15 WBC 16.6 H RBC 3.46 L Hgb 7.6 L Hct 25.6 L MCV 73.9 L MCH 21.9 L MCHC 29.7 L RDW 18.0 H Absolute Neuts (auto) 16.0 H Neutrophils % 96.5 H Neutrophils % (Manual) 95.7 H Lymphocytes % 1.7 L Lymphocytes % (Manual) 3.2 L D Monocytes % 1.6 L Monocytes % (Manual) 0 L D Nucleated RBC % ABG pH 7.26 L ABG pCO2 at Pt Temp 58.4 H ABG pO2 at Pt Temp 131 H ABG HCO3 ABG O2 Sat (Measured) 98.1 H ABG Base Excess Sodium 129 L Potassium 5.2 H Chloride 92 L Anion Gap BUN 49.2 H Creatinine 3.1 H Random Glucose 164 H Calcium 6.8 L* Phosphorus > 9.0 H* AST Total Protein 4.8 L Albumin 1.7 L Urine Protein Urine Glucose (UA) Urine Blood Ur Random Sodium Ur Random Chloride Random Vancomycin ABG Results ABG pH 7.26 (7.35-7.45) L 09/20/19 08:15 ABG pCO2 at Pt Temp 58.4 mmHg (35-45) H 09/20/19 08:15 ABG pO2 at Pt Temp 131 mmHg (80-100) H 09/20/19 08:15 ABG HCO3 25.2 mmol/L (22-27) 09/20/19 08:15 ABG O2 Sat (Measured) 98.1 % (95-98) H 09/20/19 08:15 ABG O2 Content 11.0 % vol 09/20/19 08:15 ABG Base Excess -1.6 meq/l (-2-2) 09/20/19 08:15 Microbiology 09/17/19 18:45 Gram Stain - Final Sputum - Expectorated Sputum Culture - Final NORMAL RESPIRATORY MONA 09/17/19 14:08 Blood Culture - Final Blood - Peripheral Venous Vr Ec Faecium 09/19/19 05:47 Blood Culture - Preliminary Blood - Peripheral Venous NO GROWTH OBTAINED AFTER 24 HOURS, INCUBATION TO CONTINUE FOR 4 DAYS. 09/19/19 05:47 Blood Culture - Preliminary Blood - Peripheral Venous NO GROWTH OBTAINED AFTER 24 HOURS, INCUBATION TO CONTINUE FOR 4 DAYS. 09/17/19 14:14 Blood Culture - Preliminary Blood - Peripheral Venous NO GROWTH OBTAINED AFTER 48 HOURS, INCUBATION TO CONTINUE FOR 3 DAYS. cxr-- Noted Physical Exam sedated/intubated S1 s2 RRR Lungs - Bilateral rhonchi Abd- soft, NT edema+ coleman+ PLAN Respiratory Failure renal failure bacteremic Influenza Pneumonia acute hypoxic respiratory failure Diabetes -- h/o MRSA --Remains critically ill -- vent setting per ICU -- Nebs standing -- Iv antibiotics -- medrol -- Tamiflu -- Elavil on hold - Awaiting transfer to [facility] - Condition remains critical - Will follow - D/W RN as well as today --cc time approx 40 min Problem List - Problems (1) Acute exacerbation of chronic obstructive pulmonary disease (COPD) Code(s): J44.1 - CHRONIC OBSTRUCTIVE PULMONARY DISEASE W (ACUTE) EXACERBATION (2) Anxiety Code(s): F41.9 - ANXIETY DISORDER, UNSPECIFIED (3) Diabetes Code(s): E11.9 - TYPE 2 DIABETES MELLITUS WITHOUT COMPLICATIONS (4) HTN (hypertension) Code(s): I10 - ESSENTIAL (PRIMARY) HYPERTENSION Qualifiers: Hypertension type: essential hypertension Qualified Code(s): I10 - Essential (primary) hypertension
[2019-09-20] MEDS ORDERED: DAPTOMYCIN 500 MG in SODIUM CHLORIDE 50 ML IVPB ONE (13:00)
[2019-09-20] MEDS: ALBUMIN HUMAN 25% 12.5 GM/50 ML VIAL IVPB SCH ×4 (13:17→14:26)
--- NOTE | 2019-09-20 15:41 | DS ---
Physical Examination Vital Signs: Vital Signs Temperature 98.3 F 09/20/19 14:00 Pulse Rate 104 H 09/20/19 15:15 Respiratory Rate 32 H 09/20/19 15:15 Blood Pressure 145/78 09/20/19 15:15 O2 Sat by Pulse Oximetry (%) 95 09/20/19 08:34 Cardiovascular: Yes: Regular Rate and Rhythm Respiratory: Yes: Diminished Labs: CBC, BMP 09/20/19 06:00 09/20/19 06:00 Discharge Summary Problems reviewed: Yes Reason For Visit: C O P D,SHORTNESS OF BREATH Current Active Problems DANIEL (acute kidney injury) (Acute) Allergy to multiple antibiotics (Acute) Hyperkalemia (Acute) MRSA (methicillin resistant Staphylococcus aureus) colonization (Acute) Shortness of breath (Acute) Hospital Course: patient was admitted- COPD exacerbation, pneumonia Start on Solu-Medrol, nebulizer treatments, Zithromax. Found to have influenza A Started on Tamiflu Course complicated by acute respiratory failure-- , transfer to ICU- was intubated-- required high amount PEEP, FiO2 was 100 % The patient went into acute renal failure--trialysis catheter place and dialysis initiated blood culture positive for VRE Patient on levophed gtt for hemodynamic support patient is being transferred to tertiary center for further management Condition: Guarded - Instructions Referrals: Cristal Ludwig MD [Primary Care Provider] - - Home Medications Comprehensive Discharge Medication List: Ambulatory Orders Amitriptyline HCl [Elavil -] 75 mg PO HS 09/13/19 Apixaban [Eliquis] 5 mg PO BID 09/13/19 Atorvastatin Calcium [Lipitor] 10 mg PO HS 09/13/19 Cholecalciferol (Vitamin D3) [Vitamin D3 -] 2,000 unit PO DAILY 09/13/19 Clobetasol/Skin Cleanser No.28 [[place] 0.05% Kit] 1 each TP BID 09/13/19 Cyanocobalamin [Vitamin B12 -] 1,000 mcg PO DAILY 09/13/19 Cyclosporine [Restasis] 1 drop OU ASDIR 09/13/19 Diltiazem Cd [Cardizem Cd -] 300 mg PO DAILY 09/13/19 Gabapentin 300 mg PO [facility]IR 09/13/19 Hydroxyzine HCl 2 tab PO BID PRN 09/13/19 Prednisolone 1% Ophthalmic [Pred Forte 1% -] 1 drop OU ASDIR 09/13/19 Prednisone 50 mg PO ASDIR 09/13/19 Tiotropium [place] [Spiriva] 1 inh IN DAILY 09/13/19
--- NOTE | 2019-09-20 17:26 | PN ---
Progress Note, Physician History of Present Illness: Pt seen and examined at bedside. She remains in the ICU. She remains intubated. - Current Medication List Current Medications: Active Medications Amitriptyline HCl (Elavil -) 75 mg PO [facility] Apixaban (Eliquis -) 5 mg PO BID [facility] Last Admin: 09/20/19 10:47 Dose: 5 mg Artificial Tears (Artificial Tears) 1 drop OU BID PRN PRN Reason: DRY EYES Atorvastatin Calcium (Lipitor -) 10 mg PO [facility] Last Admin: 09/19/19 22:17 Dose: 10 mg Budesonide/Formoterol Fumarate (Symbicort 160/4.5mcg -) 2 puff IH BID [facility] Last Admin: 09/20/19 10:41 Dose: Not Given Chlorhexidine Gluconate (Hibiclens For Decolonization -) 1 applic TP [facility] Last Admin: 09/19/19 22:18 Dose: 1 applic Cholecalciferol (Vitamin D3 -) 2,000 unit PO DAILY [facility] Last Admin: 09/20/19 10:46 Dose: 2,000 unit Cyanocobalamin (Vitamin B12 -) 1,000 mcg PO DAILY [facility] Last Admin: 09/20/19 10:48 Dose: 1,000 mcg Diltiazem HCl (Cardizem -) 60 mg GT Q6HPO [facility] Last Admin: 09/20/19 12:49 Dose: Not Given Diltiazem HCl (Cardizem Injection -) 10 mg IVPUSH Q4H PRN PRN Reason: TACHYCARDIA Diphenhydramine HCl (Benadryl -) 25 mg PO TID PRN PRN Reason: ALLERGIES Famotidine (Pepcid) 20 mg NGT DAILY [facility] Last Admin: 09/20/19 10:47 Dose: 20 mg Gabapentin (Neurontin Oral Liquid -) 400 mg GT TID [facility] Last Admin: 09/20/19 14:32 Dose: Not Given Glipizide (Glucotrol -) 2.5 mg PO DAILY@0700 [facility] Last Admin: 09/20/19 07:08 Dose: Not Given Guaifenesin (Robitussin -) 10 ml PO Q4H PRN PRN Reason: COUGH Hydroxyzine Pamoate (Vistaril -) 100 mg PO BID PRN PRN Reason: itching Propofol (Diprivan -) 1,000,000 mcg in 100 mls @ 2.273 mls/hr IVPB TITR [facility]; Protocol Last Admin: 09/20/19 14:33 Dose: 50 mcg/kg/min, 22.725 mls/hr Norepinephrine Bitartrate 4, (000 mcg/ Dextrose) 500 mls @ 37.5 mls/hr IV TITR [facility]; Protocol Last Titration: 09/20/19 12:23 Dose: 4 mcg/min, 30 mls/hr Meropenem 500 mg/ Dextrose 100 mls @ 200 mls/hr IVPB BID@0800,2000 [facility] Last Admin: 09/20/19 08:03 Dose: 200 mls/hr Vecuronium [place] 50 mg/ (Dextrose) 250 mls @ 22.72 mls/hr IVPB TITR [facility] Last Infusion: 09/20/19 13:52 Dose: 0.25 mcg/kg/min, 5.68 mls/hr Midazolam HCl 100 mg/ Sodium (Chloride) 100 mls @ 10 mls/hr IVPB TITR [facility]; Protocol Last Admin: 09/20/19 14:35 Dose: 10 mg/hr, 10 mls/hr Sodium Chloride (Normal Saline -) 250 mls @ 3,000 mls/hr IV PRN PRN PRN Reason: Hypotension during Dialysis Stop: 09/21/19 12:44 Insulin Detemir (Levemir Vial) 5 units SQ HS [facility] Last Admin: 09/20/19 00:05 Dose: Not Given Ipratropium [place] (Atrovent 0.02% Nebulizer -) 1 amp NEB RQID [facility] Last Admin: 09/20/19 16:05 Dose: 1 amp Levalbuterol HCl (Xopenex) 0.31 mg IH Q8H PRN PRN Reason: ASTHMA Levalbuterol HCl (Xopenex) 0.63 mg IH RTID [facility] Last Admin: 09/20/19 16:10 Dose: 0.63 mg Methylprednisolone Sodium Succinate (Solu-Medrol -) 60 mg IVPUSH Q6H-IV [facility] Last Admin: 09/20/19 15:30 Dose: 60 mg Mupirocin (Bactroban Ointment (For Decolonization) -) 1 applic NS BID [facility] Stop: 09/23/19 19:32 Last Admin: 09/20/19 10:41 Dose: 1 applic Non-Formulary Medication (Cyclosporine [Restasis]) 1 drop OU ASDIR [facility] Nystatin (Nystatin Oral Suspension -) 500,000 units PO Q6HPO [facility] Last Admin: 09/20/19 12:23 Dose: Not Given Oseltamivir Phosphate (Tamiflu -) 75 mg PO BID [facility] Stop: 09/22/19 15:59 Last Admin: 09/20/19 10:46 Dose: 75 mg Roflumilast (Daliresp) 500 mcg PO DAILY [facility] Last Admin: 09/20/19 10:48 Dose: 500 mcg Tiotropium [place] (Spiriva Respimat) 2 puff IH DAILY [facility] - Objective Vital Signs: Vital Signs Temperature 98.6 F 09/20/19 16:00 Pulse Rate 105 H 09/20/19 16:00 Respiratory Rate 32 H 09/20/19 16:20 Blood Pressure 137/73 09/20/19 16:00 O2 Sat by Pulse Oximetry (%) 92 L 09/20/19 10:10 Constitutional: Yes: Calm Eyes: Yes: Conjunctiva Clear HENT: Yes: Atraumatic Cardiovascular: Yes: S1, S2 Respiratory: Yes: Mechanically Ventilated Gastrointestinal: Yes: Soft Genitourinary: Yes: Estrada Present, Oliguria Musculoskeletal: Yes: Muscle Weakness Edema: LUE: Trace, RUE: Trace Neurological: Yes: Lethargy Labs: CBC, BMP 09/20/19 06:00 09/20/19 06:00 INR, PTT INR 1.09 (0.83-1.09) 09/13/19 18:35 - ....Imaging Chest X-ray: Report Reviewed Problem List - Problems (1) Hyperkalemia Code(s): E87.5 - HYPERKALEMIA (2) DANIEL (acute kidney injury) Code(s): N17.9 - ACUTE KIDNEY FAILURE, UNSPECIFIED (3) Zoster Code(s): B02.9 - ZOSTER WITHOUT COMPLICATIONS Qualifiers: Herpes zoster complications: without complications Qualified Code(s): B02.9 - Zoster without complications Assessment/Plan Current Medications Generic Name Dose Route Start Last Admin Trade Name Freq PRN Reason Stop Dose Admin Amitriptyline HCl 75 mg 09/20/19 22:00 Elavil - PO [facility] Apixaban 5 mg 09/18/19 22:00 09/20/19 10:47 Eliquis - PO 5 mg BID [facility] Administration Artificial Tears 1 drop 09/18/19 19:33 Artificial Tears OU BID PRN DRY EYES Atorvastatin Calcium 10 mg 09/18/19 22:00 09/19/19 22:17 Lipitor - PO 10 mg HS [facility] Administration Budesonide/Formoterol Fumarate 2 puff 09/18/19 22:00 09/20/19 10:41 Symbicort 160/4.5mcg - IH Not Given BID [facility] Chlorhexidine Gluconate 1 applic 09/18/19 22:00 09/19/19 22:18 Hibiclens For Decolonization - TP 1 applic HS [facility] Administration Cholecalciferol 2,000 unit 09/19/19 10:00 09/20/19 10:46 Vitamin D3 - PO 2,000 unit DAILY [facility] Administration Cyanocobalamin 1,000 mcg 09/19/19 10:00 09/20/19 10:48 Vitamin B12 - PO 1,000 mcg DAILY [facility] Administration Diltiazem HCl 60 mg 09/19/19 08:23 09/20/19 12:49 Cardizem - GT Not Given Q6HPO [facility] Diltiazem HCl 10 mg 09/19/19 08:22 Cardizem Injection - IVPUSH Q4H PRN TACHYCARDIA Diphenhydramine HCl 25 mg 09/18/19 19:33 Benadryl - PO TID PRN ALLERGIES Famotidine 20 mg 09/18/19 14:00 09/20/19 10:47 Pepcid NGT 20 mg DAILY [facility] Administration Gabapentin 400 mg 09/18/19 14:00 09/20/19 14:32 Neurontin Oral Liquid - GT Not Given TID [facility] Glipizide 2.5 mg 09/19/19 07:00 09/20/19 07:08 Glucotrol - PO Not Given DAILY@0700 [facility] Guaifenesin 10 ml 09/18/19 19:33 Robitussin - PO Q4H PRN COUGH Hydroxyzine Pamoate 100 mg 09/18/19 19:33 Vistaril - PO BID PRN itching Propofol 1,000,000 mcg in 100 mls @ 2.273 mls/hr 09/18/19 09:45 09/20/19 14: 33 Diprivan - IVPB 50 mcg/kg/min TITR [facility] 22.725 mls/hr Administration Protocol 5 MCG/KG/MIN Norepinephrine Bitartrate 4, 500 mls @ 37.5 mls/hr 09/18/19 23:00 09/20/19 12 :23 000 mcg/ Dextrose IV 4 mcg/min TITR [facility] 30 mls/hr Titration Protocol 5 MCG/MIN Meropenem 500 mg/ Dextrose 100 mls @ 200 mls/hr 09/19/19 20:00 09/20/19 08:03 IVPB 200 mls/hr BID@0800,2000 [facility] Administration Vecuronium [place] 50 mg/ 250 mls @ 22.72 mls/hr 09/19/19 18:00 09/20/19 13: 52 Dextrose IVPB 0.25 mcg/kg/min TITR [facility] 5.68 mls/hr Infusion 1 MCG/KG/MIN Midazolam HCl 100 mg/ Sodium 100 mls @ 10 mls/hr 09/19/19 20:30 09/20/19 14: 35 Chloride IVPB 10 mg/hr TITR [facility] 10 mls/hr Administration Protocol 10 MG/HR Sodium Chloride 250 mls @ 3,000 mls/hr 09/20/19 12:45 Normal Saline - IV 09/21/19 12:44 PRN PRN Hypotension during Dialysis Insulin Detemir 5 units 09/18/19 22:00 09/20/19 00:05 Levemir Vial SQ Not Given HS [facility] Ipratropium [place] 1 amp 09/18/19 16:00 09/20/19 16:05 Atrovent 0.02% Nebulizer - NEB 1 amp RQID SANDEEP Administration Levalbuterol HCl 0.31 mg 09/18/19 19:33 Xopenex IH Q8H PRN ASTHMA Levalbuterol HCl 0.63 mg 09/18/19 20:00 09/20/19 16:10 Xopenex IH 0.63 mg RTID SANDEEP Administration Methylprednisolone Sodium Succinate 60 mg 09/18/19 21:00 09/20/19 15:30 Solu-Medrol - IVPUSH 60 mg Q6H-IV SANDEEP Administration Mupirocin 1 applic 09/18/19 19:33 09/20/19 10:41 Bactroban Ointment (For Decolonization) - NS 09/23/19 19:32 1 applic BID SANDEEP Administration Non-Formulary Medication 1 drop 09/18/19 19:33 Cyclosporine [Restasis] OU ASDIR SANDEEP Nystatin 500,000 units 09/19/19 00:00 09/20/19 12:23 Nystatin Oral Suspension - PO Not Given Q6HPO SANDEEP Oseltamivir Phosphate 75 mg 09/18/19 22:00 09/20/19 10:46 Tamiflu - PO 09/22/19 15:59 75 mg BID SANDEEP Administration Roflumilast 500 mcg 09/19/19 10:00 09/20/19 10:48 Daliresp PO 500 mcg DAILY SANDEEP Administration Tiotropium [place] 2 puff 09/19/19 10:00 Spiriva Respimat IH DAILY SANDEEP Impression 1. DANIEL 2. hyperkalemia 3. resp failure 4. copd 5. sepsis 6. PNA 7. HTN 8. DM 9. hypoxia Plan - HD today - follow serologies - monitor bp - vent support - she is still pending transfer to tertiary care center - pt tolerated HD yesterday - pt remains in oliguric renal failure - likely atn -
[2019-09-20 18:18] VITALS: TEMP 98.3
[2019-09-20 21:57] VITALS: BP 137/72; PULSE 105
[2019-09-20] MEDS ORDERED: AMITRIPTYLINE HCL 75 MG TABLET PO SCH (22:00)
== END 2019-09-20 21:20 | disposition short-term general hospital (02) | DRG 208 ==
LOC: JER 16:49 → J6S 20:35 → J4W 09-17 21:46 → JICU 09-18 09:54
PROVIDERS: ADMIT Internal Medicine; ATTEND Internal Medicine
PROC: 0BH17EZ Insertion of Endotracheal Airway into Trachea, Via Natural or Artificial Opening (ICD-10-PCS; principal; 2019-09-18)
PROC: 5A1945Z Respiratory Ventilation, 24-96 Consecutive Hours (ICD-10-PCS; 2019-09-18)
PROC: 05HM33Z Insertion of Infusion Device into Right Internal Jugular Vein, Percutaneous Approach (ICD-10-PCS; 2019-09-18)
PROC: B513ZZA Fluoroscopy of Right Jugular Veins, Guidance (ICD-10-PCS; 2019-09-18)
PROC: 06HN33Z Insertion of Infusion Device into Left Femoral Vein, Percutaneous Approach (ICD-10-PCS; 2019-09-19)
PROC: B51CZZA Fluoroscopy of Left Lower Extremity Veins, Guidance (ICD-10-PCS; 2019-09-19)
DX: J44.1 Chronic obstructive pulmonary disease with (acute) exacerbation (principal); J11.00 Influenza due to unidentified influenza virus with unspecified type of pneumonia; J96.01 Acute respiratory failure with hypoxia; A41.89 Other specified sepsis; R65.21 Severe sepsis with septic shock; J96.02 Acute respiratory failure with hypercapnia; B02.29 Other postherpetic nervous system involvement; N17.9 Acute kidney failure, unspecified; J45.909 Unspecified asthma, uncomplicated; I10 Essential (primary) hypertension; E78.5 Hyperlipidemia, unspecified; E11.9 Type 2 diabetes mellitus without complications; I48.91 Unspecified atrial fibrillation; J20.9 Acute bronchitis, unspecified; K21.9 Gastro-esophageal reflux disease without esophagitis; E04.2 Nontoxic multinodular goiter; J44.0 Chronic obstructive pulmonary disease with (acute) lower respiratory infection; E78.00 Pure hypercholesterolemia, unspecified; R00.0 Tachycardia, unspecified; I25.10 Atherosclerotic heart disease of native coronary artery without angina pectoris; I11.0 Hypertensive heart disease with heart failure; I50.9 Heart failure, unspecified; E53.8 Deficiency of other specified B group vitamins; F41.9 Anxiety disorder, unspecified; I95.9 Hypotension, unspecified; E87.5 Hyperkalemia; E66.9 Obesity, unspecified; Z68.29 Body mass index [BMI] 29.0-29.9, adult; Z86.718 Personal history of other venous thrombosis and embolism; Z86.711 Personal history of pulmonary embolism; Z86.73 Personal history of transient ischemic attack (TIA), and cerebral infarction without residual deficits; Z22.322 Carrier or suspected carrier of Methicillin resistant Staphylococcus aureus; Z88.1 Allergy status to other antibiotic agents
CPT/HCPCS: 31500; 36415; 36600; 71045-TC-FY; 71046-TC-FY; 74018-TC-FY; 80048; 80053; 80074; 81003; 82436; 82550; 82565; 82803; 82962; 83036; 83735; 83880; 84100; 84133; 84300; 84443; 84484; 85025; 85610; 85730; 86738; 86803; 87040; 87070; 87186; 87205; 87804; 87899; 93005; 93010; 93306-TC; 94002; 94640; 94660; 96374; 96375; 96376; 99284-25; G0378; G0480; J0878; P9047